=== PATIENT | female | born 1960 | race Caucasian/White ===

== ENCOUNTER → 2017-10-26 06:02 | Outpatient (CLI) | payer BC, SELFPAY ==
--- NOTE | 2017-10-26 09:14 | STRESSREP ---
Stress Test Report Pharmacologic myocardial perfusion stress test. 56-year-old lady with a history of chest pain. Stress protocol: Resting EKG demonstrates sinus rhythm with a rate of 63 bpm normal intervals and noted resting blood pressure is 114/68 mmHg. 0.4 mg of regadenoson was infused per usual protocol followed by rapid intravenous saline flush injection. Continuous EKG monitoring was performed. The maximum heart rate attained was 88 bpm which was 53% maximum predicted heart rate maximum workload attained was 1 metabolic equivalent. At rest there were no ST or T-wave changes noted suggest abnormal flow reserve at peak infusion no ST or T-wave changes were noted suggest abnormal flow reserve. No clinical angina was noted. The resting blood pressure is 114/68 final blood pressure was the same. Myocardial perfusion protocol: 11.1 mCi of technetium 99m sestamibi was injected at rest. 0.4 mg regadenoson was infused per usual protocol peak infusion 32.6 mCi of technetium 99m sestamibi was injected stress images were obtained stress and rest images were reconstructed and compared in the short axis vertical long and horizontal long axis. Gated images were also obtained. Perfusion SPECT analysis: Review of the stress images demonstrate normal uptake of tracer noted in all areas of the myocardium. The resting images similarly demonstrate normal uptake of tracer noted in all areas of myocardium. No areas of reversibility are noted suggest ischemia no previous infarct is noted. Gated SPECT analysis: The gated ejection fraction is over 80%. Conclusion: Normal pharmacologic myocardial perfusion stress test.
== END ==
PROVIDERS: Family Provider Internal Medicine; PCP Internal Medicine; Visit Provider Internal Medicine
DX: R07.9 Chest pain, unspecified (principal)
CPT/HCPCS: 78452; 93017; A9500; A4216; J2785

== ENCOUNTER → 2017-11-01 07:29 | Outpatient (CLI) | payer BC, SELFPAY ==
--- NOTE | 2017-11-01 07:31 | US_ITS ---
STUDY: THYROID ULTRASOUND REASON FOR EXAM: Female, 56 years old. Multinodular goiter. TECHNIQUE: Ultrasound evaluation of the thyroid was performed with real-time and static gonzales-scale imaging. COMPARISON: October 26, 2016. FINDINGS: RIGHT LOBE: The right lobe of the thyroid gland measures 4.1 x 1.7 x 1.3 cm. There is a heterogeneous echotexture. 0.7 x 0.5 x 0.2 cm isoechoic nodule with hypoechoic rim in the medial mid thyroid. LEFT LOBE: The left lobe of the thyroid gland measures 4.2 x 1.6 x 0.9 cm. There is a homogeneous echotexture. There is a 0.4 x 0.4 x 0.2 cm hypodensity in the lower pole. ISTHMUS: The isthmus measures 0.3 cm. The regional lymph nodes are normal. US/Thyroid IMPRESSION: No interval change. Electronically Signed: Rajeev Farias DO at 16:25 EDT Tel [phone], Service support ,
--- NOTE | 2017-11-01 07:31 | HPBI_ITS ---
MAMMOGRAPHY - BILATERAL SCREENING 3-D MEÑO SYNTHESIS REASON FOR EXAM: Female, 56 years old. Bilateral Screening 3-D tomosynthesis PERTINENT HISTORY: No significant family history. TECHNIQUE: 2-D mammograms and 3-D Meño synthesis of the breast (s) were performed. CAD was performed. COMPARISON: 10/29/2016 FINDINGS: The breast composition is composed of scattered fibroglandular density. Scattered benign mostly vascular calcifications are seen. No new finding of dense spiculated masses, abnormal microcalcification cluster, dominant mass or architectural distortion is identified. There is no adenopathy, skin thickening or nipple retraction. There has been no significant change since the prior study. No change tiny metal biopsy clip right breast posteriorly noted with adjacent coarse benign appearing dystrophic calcifications. HPBI/SCREENING MAMM (CAD), BILAT IMPRESSION: No mammographic signs of malignancy. Routine yearly mammograms recommended. ASSESSMENT CATEGORY: BIRADS Category 2: Benign. A letter regarding these results will be sent to the patient by the facility within 30 days. FOLLOW UP RECOMMENDATION: Yearly follow up mammogram recommended. (A) Approximately 10% of breast cancers are not detected by mammography. A normal mammogram should not delay biopsy of a clinically suspicious abnormality. Electronically Signed: Chris Kobe, at 18:39 EDT Tel , Service support ,
== END ==
PROVIDERS: Family Provider Internal Medicine; PCP Internal Medicine; Visit Provider Internal Medicine
DX: E04.2 Nontoxic multinodular goiter (principal); Z12.31 Encounter for screening mammogram for malignant neoplasm of breast
CPT/HCPCS: 76536; 77063; 77067

== ENCOUNTER → 2017-11-19 09:34 | Outpatient (CLI) | payer BC, SELFPAY ==
[2017-11-19 12:08] LABS: Hemoglobin A1c 7.1 % (4.2-6.3)
[2017-11-19 12:35] LABS: AST(SGOT) 23 U/L (15-37); Alanine Aminotransfer ALT/SGPT 26 U/L (13-56); Anion Gap 7 (5-15); BUN 11 mg/dL (7-18); BUN/Creat Ratio 18.6 RATIO (10-20); Calcium,Total 8.5 mg/dL (8.5-10.1); Chloride 107 mmol/L (98-107); Cholesterol 152 mg/dL (200); Creatinine, Serum 0.59 mg/dL (0.55-1.02); EST Glomerular Filtration Rate 111 mL/min (>60); Est Glom Filt Rate - Afr Amer 135 mL/min (>60); Glucose 103 mg/dL (74-106); High Density Lipoprotein 89 mg/dL; Sodium Level 143 mmol/L (136-145); T4 Free Direct 1.58 ng/dL (0.76-1.46); Thyroid Stim Hormone (TSH) 0.73 uIU/mL (0.358-3.74); Triglycerides 26 mg/dL; Very Low Density Lipoprotein 5 mg/dL (5-40)
== END ==
PROVIDERS: Family Provider Internal Medicine; PCP Internal Medicine; Visit Provider Nurse Practitioner Adult Health
DX: E03.8 Other specified hypothyroidism (principal); E53.9 Vitamin B deficiency, unspecified; E55.9 Vitamin D deficiency, unspecified; E10.65 Type 1 diabetes mellitus with hyperglycemia
CPT/HCPCS: 36415; 80048; 80061; 83036; 84439; 84443; 84450; 84460

== ENCOUNTER → 2018-02-17 09:35 | Outpatient (CLI) | payer BC, SELFPAY ==
[2018-02-17 12:47] LABS: AST(SGOT) 22 U/L (15-37); Alanine Aminotransfer ALT/SGPT 33 U/L (13-56); Anion Gap 7 (5-15); BUN 17 mg/dL (7-18); BUN/Creat Ratio 27.2 RATIO (10-20); Calcium,Total 8.7 mg/dL (8.5-10.1); Chloride 104 mmol/L (98-107); Cholesterol 157 mg/dL (200); Creatinine, Serum 0.62 mg/dL (0.55-1.02); EST Glomerular Filtration Rate 104 mL/min (>60); Est Glom Filt Rate - Afr Amer 126 mL/min (>60); Glucose 49 mg/dL (74-106); High Density Lipoprotein 86 mg/dL; Sodium Level 143 mmol/L (136-145); T4 Free Direct 1.25 ng/dL (0.76-1.46); Thyroid Stim Hormone (TSH) 2.08 uIU/mL (0.358-3.74); Triglycerides 37 mg/dL; Very Low Density Lipoprotein 7 mg/dL (5-40)
[2018-02-17 12:48] LABS: Hemoglobin A1c 6.8 % (4.2-6.3)
[2018-02-17 12:51] LABS: Vitamin B12 1996 pg/mL (211-911)
== END ==
PROVIDERS: Family Provider Internal Medicine; PCP Internal Medicine; Visit Provider Nurse Practitioner Adult Health
DX: E03.8 Other specified hypothyroidism (principal); E53.9 Vitamin B deficiency, unspecified; E55.9 Vitamin D deficiency, unspecified; E10.65 Type 1 diabetes mellitus with hyperglycemia
CPT/HCPCS: 36415; 80048; 80061; 82306; 82607; 83036; 84439; 84443; 84450; 84460

== ENCOUNTER → 2018-05-26 10:08 | Outpatient (CLI) | payer BC, SELFPAY ==
[2018-05-26 12:40] LABS: Hemoglobin A1c 6.6 % (4.2-6.3); Vitamin B12 1757 pg/mL (211-911); Vitamin D,25 Hydroxy 63.2 ng/mL (29.95-100.01)
[2018-05-26 12:44] LABS: AST(SGOT) 20 U/L (15-37); Alanine Aminotransfer ALT/SGPT 26 U/L (13-56); Anion Gap 7 (5-15); BUN 15 mg/dL (7-18); Calcium,Total 8.9 mg/dL (8.5-10.1); Chloride 101 mmol/L (98-107); Cholesterol 181 mg/dL (200); Creatinine, Serum 0.71 mg/dL (0.55-1.02); EST Glomerular Filtration Rate 89 mL/min (>60); Est Glom Filt Rate - Afr Amer 108 mL/min (>60); Glucose 118 mg/dL (74-106); High Density Lipoprotein 82 mg/dL; Potassium 4.4 mmol/L (3.5-5.1); Sodium Level 139 mmol/L (136-145); Thyroid Stim Hormone (TSH) 1.94 uIU/mL (0.358-3.74); Triglycerides 37 mg/dL; Very Low Density Lipoprotein 7 mg/dL (5-40)
== END ==
PROVIDERS: Family Provider Internal Medicine; PCP Internal Medicine; Referring Provider Nurse Practitioner Adult Health; Visit Provider Nurse Practitioner Adult Health
DX: E03.8 Other specified hypothyroidism (principal); E53.9 Vitamin B deficiency, unspecified; E55.9 Vitamin D deficiency, unspecified; E10.65 Type 1 diabetes mellitus with hyperglycemia
CPT/HCPCS: 36415; 80048; 80061; 82306; 82607; 83036; 84439; 84443; 84450; 84460

== ENCOUNTER → 2018-06-21 14:13 | Outpatient (CLI) | payer BC, SELFPAY ==
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
--- NOTE | 2018-06-21 14:18 | RAD_ITS ---
STUDY: X-RAY - CERVICAL SPINE REASON FOR EXAM: Female, 57 years old. Neck pain TECHNIQUE: 5 view(s) of the cervical spine were obtained. COMPARISON: None FINDINGS: Odontoid and lateral masses intact and aligned. Cervical vertebral body height and alignment are normal. Slight reversal of expected cervical lordosis. Moderately severe disc narrowing with endplate degenerative changes and uncovertebral joint hypertrophy at C5-C6 and C6-C7. Next line no significant disc degeneration of the remaining levels. In the oblique views, there is mild bony foraminal stenosis due to uncovertebral hypertrophy at C5-C7. There is mild multilevel facet arthropathy. Apical lungs clear, apical thoracic cage intact. Prevertebral soft tissues and airways normal. Craniofacial osseous structures within the field of view appear normal. RAD/Cerv Spine 4 or 5 Views IMPRESSION: Cervical degenerative disc disease is prominent at C5-C6 and C6-C7 with evidence of at least mild foraminal narrowing. Electronically Signed: Silvano Decker, at 17:49 EST Tel , Service support ,
== END ==
PROVIDERS: Family Provider Internal Medicine; PCP Internal Medicine; Referring Provider Internal Medicine; Visit Provider Internal Medicine
DX: R07.81 Pleurodynia (principal); M54.2 Cervicalgia
CPT/HCPCS: 71100; 71101; 72050

== ENCOUNTER 2018-08-16 09:00 | Outpatient (RCR) | payer BC, SELFPAY ==
--- NOTE | 2018-07-10 10:51 | HP.PTEVAL ---
Patient's Visit Information VIOLETA HENNING is a 57 year old F referred to Physical Therapy by Karin Segura DO with a diagnosis of Cervical Radiculopathy. Date of Evaluation: 07/10/18 Physical Therapist: Kiki Thomas - Visit Plan Frequency: 3x /Week Duration: 4 Weeks Plan: Focus on gently scap s/s- postural correction- ultrasound and gently manual - Subjective Findings: Patient reports that she has RA which causes a lot of discomfort. Has been complaining for a long time to her RA MD that her pain is increasing. Saw PCP and reported pain at the base of the skull radiating to the shoulder right>left. Had x-rays which showed a lot of OA and problems with the discs in her neck. Tried to have massage at [facility] which made it feel better but then had another 1 and felt horrible by another massage therapist then back to [facility] then it was okay again. Swathi who is a COMBINATION MACHINE TENDER told her to hold off on the massage until she figured out whats going on. Right now its moderate pain without any rhyme or reason. Last massage was 2 weeks ago around [facility]. It is very restrictive and giving her RAMON. If she is laying in bed and rolls onto her side she wakes up with numbness on the side of the shoulder she is laying on- once she rolls back to her back the numbness goes away with in a min or 2. Does have some right sided finger numbness but it comes and goes. Worst: 8/10 constant pain unable to determine what makes it worse or better. Eases: holding her shoulders back or rubbing the area. Describes the pain as throbbing but its a constant ache as well. RAMON- they fluctuate in the back and then into the front- does not typically get a RAMON. Retired- does not have a lot of activities throughout the day- walks a little bit in the house- reads a lot and is in a bible study and listens to things a lot on the ipad. Normally sits on the couch. Sleeps in a sleep number bed- disturbed- lays on her back. Right hand dominate. PMhx: RA, glaucoma, OA, type 1 DM, osteoporosis, osteonecrosis of the jaw- oral fascial surgeon- 10 months of antibiotics, neuropathy Meds: Troceba, Novalog, synthroid, losartin, prolosec, metanex, neuron, tinniasban, simvastatin, orencia, lumagin, timerol, symbrenza. - Objective Posture: FH, RS- very guarded. Gait: slightly antalgic- decreased stance on the right LE- poor trunk rotation and no arm swing. Palpation: tender along suboccipitals into the upper trap down the cervical paraspinals to the tip of the acromion, bicipital groove and the biceps/triceps to the elbow. Pain along the medial border of the scapula and the supraspinatus and infraspinatus. ROM: Cervical: flexion- decreased by 50%, Extn: decreased by 50% SB: decreased by 25% Rot: decreased by 50% all with significant pain. Shoulder: Flexion: 100 degrees, Abd: 90 degrees, IR: bra line, ER: 30 degrees all with significant pain. Elbow: WNL, Wrist: WNL. Strength: Scap: poor, Cervical: 3+/5 isometrically, Shoulder: 3+/5 with pain in available range, elbow 4/5, Wrist: 4/5, Snack Steward: diminshed but equal the other side. Reflex: WNL. Sensation: WNL. Special Test: Distraction: decreases s/s, Compression: increseases s/s - Goals Goal 1:: Patient will be I with HEP and progression Goal Time Frame: 4-6 Weeks Goal 2:: Patient will demo increased ROM of the shoulder in all deficit areas by 20 degrees Goal Time Frame: 4-6 Weeks Goal 3:: Patient will maintain proper posture t/o tx session to demo increased scap s/s. Goal Time Frame: 4-6 Weeks Goal 4:: Patient will report no RAMON for 1 week Goal Time Frame: 4-6 Weeks - Rehabilitation Potential Physical Therapy Diagnosis: Patient presents with hypmobility- she has decreased ROM, strength and muscular endurance leading to poor posture and increased pain with ADL's. Rehabilitation Potential: Fair - Anticipated Interventions Patient/Client Instruction: Educate patient on: Benefits of Fitness Program Therapeutic Exercise to Include: Strength training, Endurance training, Body mechanics, Postural training, Passive ROM, Active ROM, Scapular Strength/Stabilization For the Purpose of:: To improve muscle performance and motor function Manual Therapy Techniques to Include: Soft tissue mobilization For the Purpose of:: To improve muscle performance and motor function TENS: Yes Cryotherapy (ice pack, ice massage): Yes Thermo therapy (hot pack): Yes Ultrasound (thermal/non thermal): Yes Thank you for the opportunity to evaluate your patient. For Medicare and Medicare HMO plans, please review the plan of care and approve it. It will need to be FAXED BACK to us at [phone] for Medicare purposes. For Medicare only, by signing this I certify the plan of care. Please let me know if there are questions or concerns regarding this plan of care. Physician Signature: Date:
--- NOTE | 2018-07-28 10:58 | HP.PTREVAL_ITS ---
Karin Segura, , It has been my pleasure to treat VIOLETA HENNING over the last 8 visits for Cervical Radiculopathy. Please see the progress note below for an update on the physical therapy plan of care! Subjective: Patient reports that she has improved pain since coming to therapy. Sometimes the pain is moderate and other times its mild. She has noticed that her headaches have greatly improved- thats the most significant improvement. No RAMON in the last week. Feels more functional and able to do a little bit more. Objective/Function: Posture: FH, RS- guarded but more movement today. Gait: slightly antalgic- decreased trunk rotation and limited arm swing. Palpation: tender along suboccipitals into the upper trap down the cervical paraspinals to the tip of the acromion, bicipital groove and the biceps/triceps to the elbow. Pain along the medial border of the scapula and the supraspinatus and infraspinatus. ROM: Cervical: flexion- decreased by 25%, Extn: decreased by 25% SB: decreased by 25% Rot: decreased by 25% all with moderate pain. Shoulder: Flexion: 120 degrees, Abd: 110 degrees, IR: bra line, ER: 30 degrees all with significant pain. Elbow: WNL, Wrist: WNL. Strength: Scap: poor, Cervical: 3+/5 isometrically, Shoulder: 4-/5 with pain in available range, elbow 4+/5, Wrist: 4+/5, Employee Communications Intern: diminshed but equal the other side. Reflex: WNL. Sensation: WNL. Special Test: Distraction: decreases s/s, Compression: increseases s/s Plan Plan: Continue 2x a week for 4 weeks with possible home TENS unit Goals Goal 1:: Patient will be I with HEP and progression Goal Time Frame: 4-6 Weeks Goal Progress: Progressing Goal 2:: Patient will demo increased ROM of the shoulder in all deficit areas by 20 degrees Goal Time Frame: 4-6 Weeks Goal Progress: Progressing Goal 3:: Patient will maintain proper posture t/o tx session to demo increased scap s/s. Goal Time Frame: 4-6 Weeks Goal Progress: Progressing Goal 4:: Patient will report no RAMON for 1 week Goal Time Frame: 4-6 Weeks Goal Progress: Goal Met Anticipated Interventions Patient/Client Instruction: Educate patient on: Benefits of Fitness Program Therapeutic Exercise to Include: Strength training, Endurance training, Body mechanics, Postural training, Passive ROM, Active ROM, Scapular Strength/Stabilization For the Purpose of:: To improve muscle performance and motor function Manual Therapy Techniques to Include: Soft tissue mobilization For the Purpose of:: To improve muscle performance and motor function TENS: Yes Cryotherapy (ice pack, ice massage): Yes Thermo therapy (hot pack): Yes Ultrasound (thermal/non thermal): Yes Please do not hesitate to contact me at [phone] by phone or if you have questions or concerns regarding this new plan of care! Sincerely, WILLIE CoombsT
--- NOTE | 2018-08-16 09:29 | HP.PTDCSUM ---
HP - PT D/C Summary It has been my pleasure to treat VIOLETA HENNING under orders from Karin Segura DO, for the diagnosis of Cervical Radiculopathy for a total of 12 visit(s). Discharge Date: Please see the following information for a summary of their discharge status. - Subjective Subjective: Stoney reports that she has improved- she has had an occasional RAMON but for the most part it has improve greatly. Pain levels have improved dramatically. She still notices things here and there but she is really happy. TENS unit at home is going well- she is using it about 2x a day and plans to travel with it. - Pain RAMON Pain Intensity (Out of 10): 0 UT Pain Intensity (Out of 10): 3 c-spine Pain Intensity (Out of 10): 3 - Overall Improvement % Improvement: 50 - Objective Objective/Function: Posture: good in chair with a back-mild guarding. Gait: no deviation- more fluid and less guarding. Palpation: tender along suboccipitals into the upper trap down the cervical paraspinals to the tip of the acromion, bicipital groove and the biceps/triceps to the elbow can tolerate more pressure with palpation. Pain along the medial border of the scapula and the supraspinatus and infraspinatus. ROM: WFL in all planes- does turn slowly. Shoulder: WNL in all planes- stiff at end range flexion and slow to perform ROM. Strength: Scap: fair plus, Cervical: 3+/5 isometrically, Shoulder: 4/5 no pain in available range, elbow 4+/5, Wrist: 4+/5, Rotogravure Press Operator: diminshed but equal the other side. Reflex: WNL. Sensation: WNL. Special Test: Distraction: decreases s/s, Compression: increseases s/s - Goals Goal 1:: Patient will be I with HEP and progression Goal Progress: Goal Met Goal 2:: Patient will demo increased ROM of the shoulder in all deficit areas by 20 degrees Goal Progress: Goal Met Goal 3:: Patient will maintain proper posture t/o tx session to demo increased scap s/s. Goal Progress: Goal Met Goal 4:: Patient will report no RAMON for 1 week Goal Progress: Progressing - Plan Plan: Discharge to home TENS unit - D/C Information If there are questions or concerns regarding this patient's physical therapy, please feel free to call me at [phone]. Thank you for the referral of this patient. Sincerely, WILLIE CoombsT
== END 2018-08-16 19:00 | disposition home or self-care (01) ==
LOC: PT 09:00
PROVIDERS: Family Provider Internal Medicine; PCP Internal Medicine; Referring Provider Internal Medicine; Visit Provider Internal Medicine
DX: M54.12 Radiculopathy, cervical region (principal)
CPT/HCPCS: 97014; 97035; 97110; 97140; 97162; 97164; 97530; G0283

== ENCOUNTER → 2018-08-25 12:24 | Outpatient (CLI) | payer BC, SELFPAY ==
--- NOTE | 2018-08-25 12:32 | RAD_ITS ---
STUDY: X-RAY - LUMBAR SPINE REASON FOR EXAM: Female, 57 years old. Back pain TECHNIQUE: 5 view(s) of the lumbar spine were obtained. COMPARISON: 11/29/2014 FINDINGS: There is no evidence of fracture or dislocation in the lumbar spine. The vertebral body heights are well-maintained. There are stable mild degenerative changes. RAD/L/S Spine Min 4 Views IMPRESSION: No fracture or dislocation in the lumbar spine. Stable mild degenerative changes. Electronically Signed: Alonzo Worthington, at 14:37 EST Tel , Service support ,
--- NOTE | 2018-08-25 12:37 | RAD_ITS ---
STUDY: X-RAY - LEFT SHOULDER REASON FOR EXAM: Female, 57 years old. History of rheumatoid arthritis, right shoulder pain TECHNIQUE: 3 view(s) of the shoulder. COMPARISON: None. FINDINGS: Normal glenohumeral articulation. There is hypertrophic osteoarthrosis of the acromioclavicular joint with inferior osseous spur formation. Normal acromion. Normal humeral head and visualized proximal humerus. The soft tissue structures are unremarkable. Normal visualized pulmonary apex. RAD/Shoulder min 2 Views IMPRESSION: 1. No erosive arthropathy. 2. Hypertrophic acromioclavicular joint arthropathy. Electronically Signed: Ronny Marie MD at 14:01 EST , Service support ,
--- NOTE | 2018-08-25 12:40 | RAD_ITS ---
STUDY: X-RAY - BILATERAL HIPS WITHOUT PELVIS REASON FOR EXAM: Female, 57 years old. History of rheumatoid arthritis, diffuse body pain TECHNIQUE: 2 views of the right hip, and 2 views of the left hip were obtained. AP pelvis. COMPARISON: None. FINDINGS: Pelvic ring is intact without evidence of lytic or sclerotic bone lesion. No osseous erosion. Visualized sacrum is normal. The sacroiliac joints and pubic symphysis are normal. Right Hip: Normal right femoral head, neck, intertrochanteric region and visualized proximal femur. Well-defined sclerotic lesion of the right femoral head compatible with a bone island. Normal right acetabulum. Normal right hip joint. Left Hip: Normal left femoral head, neck, intertrochanteric region and visualized proximal femur. Normal left acetabulum. Normal left hip joint. Normal bilateral superior and inferior pubic rami , ischial tuberosities and pubic symphysis. RAD/Hips B/L min 2 views w/ Pelvis IMPRESSION: Normal examination of the bilateral hips and AP pelvis. Electronically Signed: Ronny Marie MD at 14:02 EST , Service support ,
--- NOTE | 2018-08-25 12:41 | RAD_ITS ---
STUDY: X-RAY - RIGHT SHOULDER REASON FOR EXAM: Female, 57 years old. Pain TECHNIQUE: 3 view(s) of the shoulder. COMPARISON: None. FINDINGS: There is no evidence of fracture or dislocation. There are mild degenerative changes in the acromioclavicular joint. There are no radiodense foreign bodies. RAD/Shoulder min 2 Views IMPRESSION: No fracture or dislocation. Mild degenerative changes in the acromioclavicular joint. Electronically Signed: Alonzo Worthington, at 15:44 EST Tel , Service support ,
--- OUTSIDE RECORDS SUMMARY | 2018-10-30 02:06 | XMS RPT_ITS | Continuity of Care Document ---
:1960 Author Organization [facility] Address [address] [place] [address] Phone Care Team Providers Name Role Phone Karin Khanna DO Unavailable Bernardo CM, Dr. Deysi Mccarty Unavailable Aguilar Bullock Unavailable Lars Wayne MD Unavailable Billy Nelson MD Unavailable Leola Madsen Unavailable Unavailable María Vasquez Unavailable Unavailable Leigh Ann Herrera LPN Unavailable Unavailable Unavailable Unavailable Problems Name Dates Details Abortions/Miscarriages Comments: 1 Status: Active Acquired hypothyroidism (E03.9, 244.9) Comments: chronic stable-continue present regimen Status: Active Anxiety (F41.9, 300.00) Status: Active Anxiety and depression (F41.9, 300.00) Status: Active Arthritis, rheumatoid (M06.9, 714.0) Status: Active Bilateral hip pain (M25.551, 719.45) Status: Active Bilateral shoulder pain (M25.511, 719.41) Status: Active BMI 22.0-22.9, adult (Z68.22, V85.1) Status: Active Body mass index (BMI) 23.0-23.9, adult (Z68.23, V85.1) Status: Active Conjunctivitis (H10.9, 372.30) Status: Active Cough (R05, 786.2) Comments: needs atypicla coverage and better staph and strept ? bronchitis now early [pneumonia on amoxicillin will add zapk if not better CXR and follow up tuesday Status: Active Deliveries (Parity) Comments: 2 Status: Active Diabetes mellitus type 1, controlled (E10.9, 250.01) Comments: sees [facility]ocrinology - Dr [place] Status: Active Dysphagia, unspecified dysphagia (787.20) Status: Active Encounter for immunization (Z23, V03.89) Status: Active Encounter for screening mammogram for breast cancer (Renamed from Encounter for screening mammogram for malignant neoplasm of breast) (Z12.31, V76.12) Status: Active Encounter for screening mammogram for breast cancer (Renamed from Encounter for screening mammogram for malignant neoplasm of breast) (Z12.31, V76.12) Comments: october Status: Active FAMILY HISTORY OF MALIGNANT NEOPLASM OF GASTROINTESTINAL TRACT (Renamed from Family history of cancer of digestive system) (Z80.0, V16.0) Status: Active Fibroids (218.9) Comments: reassurance Status: Active Gastro-esophageal reflux disease without esophagitis (K21.9, 530.81) Comments: has had egd and upper gi- she was told has esophageal spasm - was told by Dr Flores he could dilate- this was a year ago- she feels better when taking the omeprazole Status: Active Hemangioma of liver (D18.03, 228.04) Comments: reassurance Status: Active Immunocompromised, acquired (D84.9, 279.3) Status: Active Lupus (M32.9, 710.0) Comments: in remission- thought was from Humira had to stop taking Status: Active [facility] Status: Active 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, 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) Comments: she cant take estorgen- has anticoardiolipin ab- and apparently one time was factor 5 leiden positive while on methotrexate but isnt now- so treat mood with cymbalta may help chronic arthritis too Status: Active Mixed hyperlipidemia (E78.2, 272.2) Comments: chronic stable-continue present regimen Status: Active Multinodular goiter (E04.2, 241.1) Comments: stable Status: Active Nausea (R11.0, 787.02) Status: Active Neck pain (M54.2, 723.1) Status: Active Need for prophylactic vaccination and inoculation against influenza (Z23, V04.81) Comments: Lot #[id number] Exp-02/04/19Site-L dltd, IMDose prefilled syringegiven by: Arsenio PULLIAM.VIS reviewed and ABN signed Status: Active Neuropathy (G62.9, 355.9) Status: Active Night sweats (R61, 780.8) Comments: better Status: Active Nipple discharge (N64.52, 611.79) Status: Active Non-smoker (Z78.9, V49.89) Status: Active Open-angle glaucoma of both eyes, indeterminate stage, unspecified open-angle glaucoma type (H40.10X4, 365.10) Comments: 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 sees [facility] clini[facility] every 2months Status: Active 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, 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 Osteopenia (M85.80, 733.90) Comments: she is working thru with rheum to get reclast Status: Active Osteoporosis (M81.0, 733.00) Comments: she is supposed to get reclast thru her endocrine Status: Active Osteoporosis (Renamed from OP (osteoporosis)) (M81.0, 733.00) Comments: cant take meds-due to osteonecrosis Status: Active Otitis Externa (380.10) Comments: stay on antiobitocs and drops Status: Active Pneumococcal vaccination given (Z23, V06.6) Comments: Lot:[id number]:04/26/18Dose:0.5mgRoute:imSite:r armGiven By:CLIFTON signed Status: Active Postmenopausal (Renamed from Postmenopausal status) (Z78.0, V49.81) Status: Active Post-nasal drip (R09.82, 784.91) Status: Active Pregnancies () Comments: 3 Status: Active PVD (peripheral vascular disease) (I73.9, 443.9) Status: Active Rib pain on right side (R07.81, 786.50) Comments: better Status: Active screening Status: Active Sinusitis, acute (J01.90, 461.9) Status: Active Sore throat (J02.9, 462) Status: Active Strep throat exposure (Z20.818, V01.89) Status: Active Unspecified Diagnosis Status: Active Medications Name Dates Details Arava 10 MG Oral Tablet 1 (one) Tablet Tablet qd for 0 days Quantity: 30 {Tablet} Refills: 4 Ordered:08-Apr-2017 Quin Randolph LPN Start : 02-Feb-2017 Active CELEBREX, 200MG (Oral Capsule) 1 Capsule bid, prn for 30 days Quantity: 60 {Capsule} Refills: 0 Ordered:24-Dec-2013 Rohinierikabradford ROJASVanita Start : 24-Dec-2013 Active Ciprofloxacin HCl 0.3 % Ophthalmic Solution 1 (one) Metric Drop 1-2 drops every 2-4 hours while awake for 2 days then 1-2 drops every 4-6 hourswhile awake for 5 days for 0 days Quantity: 1 {Bottle} Refills: 0 Ordered:29-Aug-2018 Zak Khanna DOa AFarpit HARRIS, Karin A Start : 29-Aug-2018 Active FLAX SEED OIL, 1000MG (Oral Capsule) 1 Daily (1000 MG) Active FOLIC ACID, 1MG (Oral Tablet) 1 Tablet Daily for 30 days Quantity: 30 {Tablet} Refills: 0 Ordered:22-Oct-2016 María Vasquez Start : 23-Feb-2012 Active LOSARTAN POTASSIUM, 25MG (Oral Tablet) 1 tab Tablet qd for 30 days Quantity: 30 {Tablet} Refills: 3 Ordered:16-May-2013 Zak Khanna DOa AFarpit DO, Karin A Start : 16-May-2013 Active LOVAZA, 1GM (Oral Capsule) 2 (two) Capsule BID for 30 days Quantity: 120 {Capsule} Refills: 3 Ordered:14-Nov-2012 Tessy Thomas DOhleen Start : 14-Nov-2012 Active Metanx 3-90.314-2-35 MG Oral Capsule 1 (one) Capsule Capsule bid for 0 days Quantity: 60 {Capsule} Refills: 0 Ordered:05-Aug-2017 MARILU Burkett Start : 20-Jun-2017 Active MILK THISTLE XTRA (Oral Capsule) 1 Daily Active NIASPAN, 500MG (Oral Tablet Extended Release) 1 (one) Tablet ER qhs for 30 days Quantity: 30 {Tablet_ER} Refills: 3 Ordered:13-Apr-2013 Karin Khanna DO, DO, Karin A Start : 13-Apr-2013 Active Comments:new dose NOVOLOG FLEXPEN, 100UNIT/ML (Subcutaneous Solution) 3 (three) Solution 4 units q am, 4-5 at noon and 4-5 q evening for 0 days Quantity: 5 {Solution} Refills: 0 Ordered:16-May-2013 Karin hKanna DO, DO, Karin A Start : 16-May-2013 Active Omeprazole 20 MG Oral Tablet Delayed Release 1 (one) Tablet DR qd in am for 30 days Quantity: 30 {Capsule} Refills: 4 Ordered:14-Feb-2018 Karin Khanna DO, DO, Karin A Start : 14-Feb-2018 Active ORENCIA, 125MG/ML (Subcutaneous Solution) 1 Solution uad for 0 days Quantity: 1 {Solution} Refills: 0 Ordered:12-Jan-2013 Roseanne Liu MD Start : 12-Jan-2013 Active Comments:Rhemotologist SIMVASTATIN, 5MG (Oral Tablet) 1 Tablet qhs for 0 days Quantity: 30 {Tablet} Refills: 4 Ordered:14-Dec-2012 Leola Madsen Start : 14-Dec-2012 Active Synthroid 100 MCG Oral Tablet 1 (one) Tablet qd for 0 days Quantity: 30 {Tablet} Refills: 11 Ordered:14-Feb-2018 Karin Khanna DO, DO, Karin A Start : 14-Feb-2018 Active Comments:Dispense as writtenNo Generics Tresiba FlexTouch 100 UNIT/ML Subcutaneous Solution Pen-injector 16 units q am (100 UNIT/ML) Active VITAMIN C, 1000MG (Oral Tablet) 2 BID (1000 MG) Active VITAMIN E, 400UNIT (Oral Capsule) 1 cap daily (400 UNIT) Active Xanax 0.5 MG Oral Tablet 1 Tablet qhs prn for 0 days Quantity: 30 {Tablet} Refills: 0 Ordered:14-Feb-2018 Karin Khanna DO, DO, Karin A Start : 14-Feb-2018 Active Comments:thirty Amoxicillin 875 MG Oral Tablet 1 (one) Tablet bid for 0 days Quantity: 14 {Tablet} Refills: 0 Ordered:25-Aug-2018 Leola Madsen Start : 21-Jun-2018 End : 25-Aug-2018 Inactive Augmentin 875-125 MG Oral Tablet 1 (one) Tablet Tablet bid for 10 days Quantity: 20 {Tablet} Refills: 0 Ordered:15-Nov-2016 Quin Long Start : 15-Nov-2016 End : 25-Nov-2016 Inactive Comments:with food BIAXIN XL PAC, 500MG (Oral Tablet Extended Release 24 Hour) 2 (two) Tablet ER 24HR daily for 10 days Quantity: 20 {Tablet} Refills: 0 Ordered:07-Aug-2014 Vanita Gray CNP Start : 07-Aug-2014 End : 17-Aug-2014 Inactive CIPRO, 500MG (Oral Tablet) 1 Tablet BID for 10 days Quantity: 20 {Tablet} Refills: 0 Ordered:07-Jul-2012 Fast DO, Karin AFast DO, Karin A Start : 26-Jun-2012 End : 06-Jul-2012 Inactive CYCLOBENZAPRINE HCL, 5MG (Oral Tablet) 1 (one) Tablet Tablet bid prn for 0 days Quantity: 30 {Tablet} Refills: 0 Ordered:16-Sep-2014 Leola Madsen Start : 24-Dec-2013 End : 16-Sep-2014 Inactive Cymbalta 30 MG Oral Capsule Delayed Release Particles [address] Part qd for 0 days Quantity: 30 {Capsule} Refills: 3 Ordered:26-Apr-2016 Quin Randolph LPN Start : 16-Sep-2014 End : 26-Apr-2016 Inactive Dymista 137-50 MCG/ACT Nasal Suspension 1 (one) Suspension Suspension spray bid for 0 days Quantity: 1 {Inhaler} Refills: 0 Ordered:26-Apr-2016 Quin Randolph LPN Start : 23-Jun-2015 End : 26-Apr-2016 Inactive EVENING PRIMROSE OIL, 500MG (Oral Capsule) 1 cap daily (500 MG) Inactive Levaquin 500 MG Oral Tablet 1 (one) Tablet qd for 0 days Quantity: 10 {Tablet} Refills: 0 Ordered:14-Oct-2017 Leola Madsen Start : 05-Aug-2017 End : 14-Oct-2017 Inactive LEVSIN/SL, 0.125MG (Sublingual Tablet Sublingual) 1 (one) Tab Sublingual tid, prn for 0 days Quantity: 90 {Tab_Sublingual} Refills: 1 Ordered:12-Jan-2013 TenaJessaa Start : 09-Aug-2012 End : 12-Jan-2013 Inactive Nasonex 50 MCG/ACT Nasal Suspension 2 (two) Puff Puff daily for 0 days Quantity: 1 {Bottle} Refills: 0 Ordered:26-Apr-2016 Quin Randolph LPN Start : 07-Aug-2014 End : 26-Apr-2016 Inactive Promethazine HCl 25 MG Oral Tablet 1 (one) Tablet Tablet q8hrs prn for 0 days Quantity: 15 {Tablet} Refills: 0 Ordered:25-Aug-2018 Fast DOZaka AFarpit DO, Karin A Start : 28-Mar-2018 End : 25-Aug-2018 Inactive TraZODone HCl 50 MG Oral Tablet 1 (one) Tablet qhs prn for 0 days Quantity: 30 {Tablet} Refills: 3 Ordered:14-Feb-2018 Fast DOKarin DO Karin A Start : 11-Nov-2017 End : 14-Feb-2018 Inactive VITAMIN B COMPLEX (Oral Tablet) 1 Daily Inactive ACTONEL, 150MG (Oral Tablet) 1 Tablet monthly for 30 days Quantity: 1 {Tablet} Refills: 0 Ordered:23-Oct-2012 Colton Karin HARRIS DO Karin A Start : 23-Oct-2012 End : 23-Oct-2012 Discontinued Albuterol Sulfate (2.5 MG/3ML) 0.083% Inhalation Nebulization Solution 1 (one) Nebulized Soln Nebulized Soln q 6hr while awake for 0 days Quantity: 1 {Box} Refills: 0 Ordered:15-Nov-2016 Leigh Ann Herrera LPN Start : 13-Sep-2016 End : 15-Nov-2016 Discontinued Gabapentin 100 MG Oral Capsule 1 (one) Capsule uad for 30 days Refills: 1 Ordered:28-Jul-2018 Luis Fernando Javier Start : 03-Jul-2018 End : 28-Jul-2018 Discontinued Comments:1 pill tid x 3 days2 pills tid x 3 daysthen 3 pills tid qd LEVEMIR FLEXPEN, 100UNIT/ML (Subcutaneous Solution Pen-injector) 1 Solution 12units q am, 5 units q pm for 30 days Quantity: 1 {QS} Refills: 2 Ordered:29-Apr-2014 Fast DOKarin DO, Debra A Start : 29-Apr-2014 End : 05-Aug-2017 Discontinued Comments:This order discontinued per [facility]. SYNTHROID, 150MCG (Oral Tablet) uad Tablet qd and 1/2 tab on Sundays for 0 days Quantity: 90 {Tablet} Refills: 0 Ordered:16-May-2013 Fast DO, Karin AFast DO, Karin A Start : 16-May-2013 End : 16-May-2013 Discontinued Dispense as Written SYNTHROID, 150MCG (Oral Tablet) uad Tablet qd and 1/2 tab on Sundays for 0 days Quantity: 30 {Tablet} Refills: 6 Ordered:16-May-2013 Fast DO, Karin AFast DO, Karin A Start : 16-May-2013 End : 16-May-2013 Discontinued Dispense as Written ZESTRIL, 5MG (Oral Tablet) 1 Tablet daily for 30 days Quantity: 30 {Tablet} Refills: 3 Ordered:25-Jul-2012 Fast DO, Karin AFast DO, Karin A Start : 25-Jul-2012 End : 25-Jul-2012 Discontinued Allergies and Adverse Reactions Name Dates Details Septra DS *ANTI-INFECTIVE AGENTS [place] [facility] [place] ([place]) Status: Active Comments: vomiting Past Medical History Name Dates Details Abdominal pain, acute, right upper quadrant (R10.11, 789.01) Status: Resolved as of 23-Oct-2012 Abdominal pain, acute, right upper quadrant (Renamed from Acute abdominal pain in right upper quadrant) (R10.11, 789.01) Status: Resolved as of 05-Aug-2017 Abnormal lung sounds (R09.89, 786.7) Status: Resolved as of 05-Aug-2017 Abnormal Mammogram (Renamed from Abnormal finding on mammography) (R92.8, 793.80) Comments: repeat per patient ok Status: Resolved as of 05-Aug-2017 Abnormal TSH (R79.89, 790.6) Comments: TSH 0.109, T4 2.12 add ultrasoundMonday had pounding heart held dose Status: Resolved as of 05-Aug-2017 Accidental fall, sequela (W19.XXXS, E929.3) Status: Inactive as of 26-Apr-2016 Acute bronchitis, unspecified organism (J20.9, 466.0) Status: Resolved as of 05-Aug-2017 ACUTE CYSTITIS (N30.00, 595.0) Comments: improved Status: Resolved as of 23-Oct-2012 Acute pharyngitis (J02.9, 462) Status: Resolved as of 05-Aug-2017 Back pain (M54.9, 724.5) Status: Inactive as of 14-Feb-2018 Breast pain (N64.4, 611.71) Status: Inactive as of 14-Oct-2017 Cerumen impaction (H61.20, 380.4) Status: Resolved as of 16-May-2013 CHEST PAIN (R07.9, 786.59) Status: Resolved as of 16-May-2013 Chest pain with high risk for cardiac etiology (R07.9, 786.50) Status: Inactive as of 14-Feb-2018 Daytime somnolence (Renamed from Daytime hypersomnolence) (R40.0, 780.54) Status: Resolved as of 16-May-2013 Dermatitis (L30.9, 692.9) Comments: think may be frankenscnsce she added she will get rid of and use steroid creme and let me know if not better Status: Resolved as of 05-Aug-2017 Eustachian Tube Dysfunction (H69.83, 381.81) Status: Resolved as of 05-Aug-2017 Fall (W19.XXXA, E888.9) Status: Resolved as of 16-May-2013 Fatigue (R53.83, 780.79) Status: Inactive as of 14-Oct-2017 Flu-like symptoms (R68.89, 780.99) Status: Resolved as of 05-Aug-2017 Foot injury (959.7) Status: Resolved as of 05-Aug-2017 Left foot pain (M79.672, 729.5) Comments: better Status: Inactive as of 14-Oct-2017 LOW BACK PAIN (Renamed from LBP (low back pain)) (M54.5, 724.2) Status: Resolved as of 14-Oct-2017 [facility] Status: Resolved as of 05-Aug-2017 Myalgia (M79.10, 729.1) Status: Inactive as of 26-Apr-2016 Neoplasm of uncertain behavior of skin (D48.5, 238.2) Status: Inactive as of 14-Feb-2018 Pneumococcal vaccination administered during current admission (Z23, V03.82) Status: Inactive as of 23-Oct-2012 Pneumonia of left lower lobe due to infectious organism (J18.1, 486) Status: Inactive as of 14-Oct-2017 Right upper quadrant pain (R10.11, 789.01) Status: Inactive as of 14-Oct-2017 Rt flank pain (R10.9, 789.00) Comments: ? kidneystones seen on us ? muscular ? shingles without rash. need to rule out other ab path. consider GB but negative murphys and not related to eating. consider thoracic dis herniation. Status: Inactive as of 26-Apr-2016 Upper Respiratory Infection (Renamed from Infection of the upper respiratory tract) (J06.9, 465.9) Status: Resolved as of 05-Aug-2017 Urinary frequency (R35.0, 788.41) Status: Inactive as of 26-Apr-2016 Vaccine for yepokgvoex-emhfbae-ofozkoohk with poliomyelitis (Z23, V06.3) Status: Inactive as of 23-Oct-2012 Vaginal dryness (N89.8, 625.8) Status: Inactive as of 14-Feb-2018 Visit for suture removal (Z48.02, V58.32) Status: Inactive as of 26-Apr-2016 Procedures Procedure Dates Details Breast Biopsy Completed Comments: 1996 Colonoscopy Completed Comments: 05/18 EKG Completed Comments: 08/19 Elbow Surgery Completed Jun-2014 Mammogram Completed Comments: 07/18 Pap Smear Completed Comments: 11/17 Tonsillectomy Completed Comments: 1965 Tubal Ligation Completed Comments: 1996 Date Value Details 25-Aug-2018 Hips B/L min 2 views w/ Pelvis Result: Comments: See Note; NOTES: [facility] Imaging Services [address] [place] [address] Hips B/L min 2 views w/ Pelvis MR#: [id number] Acct: [id number] Name: CHELSEA HENNING Rep #: [id number] : 1960 F 57 From: Ronny Marie MD PCP: Karin Khanna DO Status: REG CLI Study: Hips B/L min 2 views w/ Pelvis Date of Exam: 08/25/18 Exam# [id number] Ordering Dr: Karin Khanna DO STUD Y: X-RAY - BILATERAL HIPS WITHOUT PELVIS REASON FOR EXAM: Female, 57 years old. History of rheumatoid arthritis, diffuse body pain TECHNIQUE: 2 views of the right hip, and 2 views of the left hip were obtained. AP pelvis. COMPARISON: None. FINDINGS: Pelvic ring is intact without evidence of lytic or sclerotic bone lesion. No osseous erosion. Visualized sacrum is normal. The sacroiliac joints and pubic symphysis are normal. Right Hip: Normal right femoral head, neck, intertrochanteric region and visualized proximal femur. Well-defined sclerotic lesion of the right femoral head compatible with a bone island. Normal right acetabulum. Normal right hip joint. Left Hip: Normal left femoral head, neck, intertrochanteric region and visualized proximal femur. Nor mal left acetabulum. Normal left hip joint. Normal bilateral superior and inferior pubic rami , ischial tuberosities and pubic symphysis. RAD/H ips B/L min 2 views w/ Pelvis IMPRESSION: Normal examination of the bilateral hips and AP pelvis. Electronically Signed: Ronny Marie MD at 14:02 EST , Service support [phone], CC: Karin Khanna DO Tube Turner: Signed 25-Aug-2018 Shoulder min 2 Views Result: Comments: See Note; NOTES: [facility] Imaging Services [address] [place] [address] Shoulder min 2 Views MR#: [id number] Acct: [id number] Name: CHELSEA HENNING Rep #: [id number] : 1960 F 57 From: Ronny Marie MD PCP: Karin Khanna DO Status: REG CLI Study: Shoulder min 2 Views Date of Exam: 08/25/18 Exam# [id number] Ordering Dr: Karin Khanna DO STUDY: X-RAY - LEFT SHOU LDER REASON FOR EXAM: Female, 57 years old. History of rheumatoid arthritis, right shoulder pain TECHNIQUE: 3 view(s) of the shoulder. COMPARISON: None. FINDINGS: Normal glenohumeral articulation. There is hypertrophic osteoarthrosis of the acromioclavicular joint with inferior osseous spur formation. Normal acromion. Normal humeral head and visualized proximal humerus. The soft tissue structures are unremarkable. Normal visualized pulmonary apex. RAD/Shoulder min 2 Views IMPRESSION: 1. No erosive art hropathy. 2. Hypertrophic acromioclavicular joint arthropathy. Electronically Signed: Ronny Marie MD at 14:01 EST , Service support , CC: Karin Khanna DO Tube Turner: Signed 25-Aug-2018 Shoulder min 2 Views Result: Comments: See Note; NOTES: [facility] Imaging Services [address] [place] [id number] Shoulder min 2 Views MR#: [id number] Acct: [id number] Name: CHELSEA HENNING Rep #: [id number] : 1960 F 57 From: Alonzo Worthington MD PCP: Karin Khanna DO Status: REG CLI Study: Shoulder min 2 Views Date of Exam: 08/25/18 Exam# [id number] Ordering Dr: Karin Khanna DO STUDY: X-RAY - RIGHT [facility] REASON FOR EXAM: Female, 57 years old. Pain TECHNIQUE: 3 view(s) of the shoulder. COMPARISON: None. FINDINGS: There is no evidence of fracture or dislocatio n. There are mild degenerative changes in the acromioclavicular joint. There are no radiodense foreign bodies. RAD/Shoulder min 2 Views IMPRES ELISHA: No fracture or dislocation. Mild degenerative changes in the acromioclavicular joint. Electronically Signed: Alonzo Worthington, at 15:44 EST Tel , Service support , CC: Karin Khanna DO Tube Turner: Signed 25-Aug-2018 L/S Spine Min 4 Views Result: Comments: See Note; NOTES: [facility] Imaging Services [address] [place] [id number] L/S Spine Min 4 Views MR#: [id number] Acct: [id number] Name: CHELSEA HENNING Rep #: [id number] : 1960 F 57 From: Alonzo Worthington MD PCP: Karin Khanna DO Status: REG CLI Study: L/S Spine Min 4 Views Date of Exam: 08/25/18 Exam# [id number] Ordering Dr: Karin Khanna DO STUDY: X-RAY - LUMBAR SPINE REASON FOR EXAM: Female, 57 years old. Back pain TECHNIQUE: 5 view(s) of the lumbar spine were obtained. COMPARISON: 11/29/2014 FINDINGS: There is no eviden ce of fracture or dislocation in the lumbar spine. The vertebral body heights are well-maintained. There are stable mild degenerative changes. RAD/L/S Spine Min 4 Views IMPRESSION: No fracture or dislocation in the lumbar spine. Stable mild degenerative changes. Electronically Signed: Alonzo Worthington, at 14:37 EST Tel , Service support , CC: Karin Khanna DO Tube Turner: Signed 16-Aug-2018 PT D/C Summary (1) Result: Comments: See Note; NOTES: [facility] [address] [place] [address] / REHABILITATION SERVICES DISCH ARGE SUMMARY MR#: [id number] Acct: [id number] Name: CHELSEA HENNING Rep #: [id number] : 1960 57 From: Kiki Thomas DPT Referring Dr.: Karin Khanna DO Status: REG RCR Insurance: [employer] PAY INSURANCE HP - PT D/C Summary It has been my pleasure to treat CHELSEA HENNING under orders from Karin Khanna DO, for the diagnosis of Cervical Radiculopathy for a total of 12 visit(s). Discharge Date: Please see the following information for a summary of their discharge status. - Subjective Subjective: Stoney reports that she has improved- she has had an occasional MAURO but for the most part it mauro s improve greatly. Pain levels have improved dramatically. She still notices things here and there but she is really happy. TENS unit at home is going well- she is using it about 2x a day and plans to t ravel with it. - Pain MAURO Pain Intensity (Out of 10): 0 UT Pain Intensity (Out of 10): 3 c-spine Pain Intensity (Out of 10): 3 - Overall Improvement % Improvement: 50 - Objective Objective/ Function: Posture: good in chair with a back-mild guarding. Gait: no deviation- more fluid and less guarding. Palpation: tender along suboccipitals into the upper trap down the cervical paraspinals to t he tip of the acromion, bicipital groove and the biceps/triceps to the elbow can tolerate more pressure with palpation. Pain along the medial border of the scapula and the supraspinatus and infraspinatu s. ROM: WFL in all planes- does turn slowly. Shoulder: WNL in all planes- stiff at end range flexion and slow to perform ROM. Strength: Scap: fair plus, Cervical: 3+/5 isometrically, Shoulder: 4/5 no pa in in available range, elbow 4+/5, Wrist: 4+/5, Anatomy And Physiology Instructor: diminshed but equal the other side. Reflex: WNL. Sensation: WNL. Special Test: Distraction: decreases s/s, Compression: increseases s/s - Goals Goa l 1:: Patient will be I with HEP and progression Goal Progress: Goal Met Goal 2:: Patient will demo increased ROM of the shoulder in all deficit areas by 20 degrees Goal Progress: Goal Met Goal 3:: Tootie ent will maintain proper posture t/o tx session to demo increased scap s/s. Goal Progress: Goal Met Goal 4:: Patient will report no MAURO for 1 week Goal Progress: Progressing - Plan Plan: Discharge to [facility] TENS unit - D/C Information If there are questions or concerns regarding this patient's physical therapy, please feel free to call me at [phone]. Thank you for the referral of this patient. Kiki Quezada, DPT <Electronically signed by Kiki Thomas DPT> 08/16/18 0929 CC: Karin Khanna DO ELR Signed 28-Jul-2018 Re-Evaluation - PT (1) Result: Comments: See Note; NOTES: [facility] [address] [place], [place] [id number] Fax REEVALUATION / MEDICARE RECERTI FICATION PHYSICAL THERAPY MR#: [id number] Acct: [id number] Name: CHELSEA HENNING Rep #: [id number] : 1960 57 From: Kiki Thomas DPT Referring DrMarquis: Karin Khanna DO Status: REG RCR Insurance: [employer] S[employer]F PAY INSURANCE Karin Khanna DO, It has been my pleasure to treat CHELSEA HENNING over the last 8 visits for Cervical Radiculopathy. Please see the progress note below for an update on the [facility] therapy plan of care! Subjective: Patient reports that she has improved pain since coming to therapy. Sometimes the pain is moderate and other times its mild. She has noticed that her headaches mauro ve greatly improved- thats the most significant improvement. No MAURO in the last week. Feels more functional and able to do a little bit more. Objective/Function: Posture: FH, RS- guarded but more movemen t today. Gait: slightly antalgic- decreased trunk rotation and limited arm swing. Palpation: tender along suboccipitals into the upper trap down the cervical paraspinals to the tip of the acromion, bici pital groove and the biceps/triceps to the elbow. Pain along the medial border of the scapula and the supraspinatus and infraspinatus. ROM: Cervical: flexion- decreased by 25%, Extn: decreased by 25% SB : decreased by 25% Rot: decreased by 25% all with moderate pain. Shoulder: Flexion: 120 degrees, Abd: 110 degrees, IR: bra line, ER: 30 degrees all with significant pain. Elbow: WNL, Wrist: WNL. Strengt h: Scap: poor, Cervical: 3+/5 isometrically, Shoulder: 4-/5 with pain in available range, elbow 4+/5, Wrist: 4+/5, Anatomy And Physiology Instructor: diminshed but equal the other side. Reflex: WNL. Sensation: WNL. Special Test: Di straction: decreases s/s, Compression: increseases s/s Plan Plan: Continue 2x a week for 4 weeks with possible home TENS unit Goals Goal 1:: Patient will be I with HEP and progression Goal Time Frame: 4-6 Weeks Goal Progress: Progressing Goal 2:: Patient will demo increased ROM of the shoulder in all deficit areas by 20 degrees Goal Time Frame: 4-6 Weeks Goal Progress: Progressing Goal 3:: Patient w ill maintain proper posture t/o tx session to demo increased scap s/s. Goal Time Frame: 4-6 Weeks Goal Progress: Progressing Goal 4:: Patient will report no MAURO for 1 week Goal Time Frame: 4-6 Weeks Goal Progress: Goal Met Anticipated Interventions Patient/Client Instruction: Educate patient on: Benefits of Fitness Program Therapeutic Exercise to Include: Strength training, Endurance training, Body me chanics, Postural training, Passive ROM, Active ROM, Scapular Strength/Stabilization For the Purpose of:: To improve muscle performance and motor function Manual Therapy Techniques to Include: Soft tiss ue mobilization For the Purpose of:: To improve muscle performance and motor function TENS: Yes Cryotherapy (ice pack, ice massage): Yes Thermo therapy (hot pack): Yes Ultrasound (thermal/non thermal): Yes Please do not hesitate to contact me at [phone] by phone or if you have questions or concerns regarding this new plan of care! Sincerely, Kiki Thomas DPT <Elec tronically signed by Kiki Thomas DPT> 07/28/18 1058 CC: Karin Khanna DO ELR Signed For Medicare only, by signing this I certify the plan of care. Physicians Signature Date 10-Jul-2018 Inital Evaluation (1) - PT Result: Comments: See Note; NOTES: [facility] [address] [place] [address]. [address] [place] [address] Fax REHABILITATION SERVICES INITIAL EVALUATION MR#: [id number] Acct: [id number] Name: CHELSEA HENNING Rep #: [id number] : 1960 57 From: Kiki Thomas DPT Referring Dr.: Karin Khanna DO Status: REG RCR Insurance: ANTHEM SELF PAY I NSURANCE Patient's Visit Information CHELSEA HENNING is a 57 year old F referred to Physical Therapy by Karin Khanna DO with a diagnosis of Cervical Radiculopathy. Date of Evaluation: 07/10/18 Physica l Therapist: Kiki Thoams - Visit Plan Frequency: 3x /Week Duration: 4 Weeks Plan: Focus on gently scap s/s- postural correction- ultrasound and gently manual - Subjective Findings: Patient reports that she has RA which causes a lot of discomfort. Has been complaining for a long time to her RA MD that her pain is increasing. Saw PCP and reported pain at the base of the skull radiating to the shoul yobani right>left. Had x-rays which showed a lot of OA and problems with the discs in her neck. Tried to have massage at [facility] which made it feel better but then had another 1 and felt ho rrible by another massage therapist then back to origional then it was okay again. Swathi who is a PLATFORM OPERATIONS DIRECTOR told her to hold off on the massage until she figured out whats going on. Right now its moderate pa in without any rhyme or reason. Last massage was 2 weeks ago around [place]. It is very restrictive and giving her MAURO. If she is laying in bed and rolls onto her side she wakes up with numbness on the side of the shoulder she is laying on- once she rolls back to her back the numbness goes away with in a min or 2. Does have some right sided finger numbness but it comes and goes. Worst: 03/17 consta nt pain unable to determine what makes it worse or better. Eases: holding her shoulders back or rubbing the area. Describes the pain as throbbing but its a constant ache as well. MAURO- they fluctuate in t he back and then into the front- does not typically get a MAURO. Retired- does not have a lot of activities throughout the day- walks a little bit in the house- reads a lot and is in a bible study and list ens to things a lot on the ipad. Normally sits on the couch. Sleeps in a sleep number bed- disturbed- lays on her back. Right hand dominate. PMhx: RA, glaucoma, OA, type 1 DM, osteoporosis, osteonecrosi s of the jaw- oral fascial surgeon- 10 months of antibiotics, neuropathy Meds: Troceba, Novalog, synthroid, losartin, prolosec, metanex, neuron, tinniasban, simvastatin, orencia, lumagin, timerol, symbr alireza. - Objective Posture: FH, RS- very guarded. Gait: slightly antalgic- decreased stance on the right LE- poor trunk rotation and no arm swing. Palpation: tender along suboccipitals into the upper tr ap down the cervical paraspinals to the tip of the acromion, bicipital groove and the biceps/triceps to the elbow. Pain along the medial border of the scapula and the supraspinatus and infraspinatus. RO M: Cervical: flexion- decreased by 50%, Extn: decreased by 50% SB: decreased by 25% Rot: decreased by 50% all with significant pain. Shoulder: Flexion: 100 degrees, Abd: 90 degrees, IR: bra line, ER: 30 degrees all with significant pain. Elbow: WNL, Wrist: WNL. Strength: Scap: poor, Cervical: 3+/5 isometrically, Shoulder: 3+/5 with pain in available range, elbow 4/5, Wrist: 4/5, Anatomy And Physiology Instructor: diminshed but eq ual the other side. Reflex: WNL. Sensation: WNL. Special Test: Distraction: decreases s/s, Compression: increseases s/s - Goals Goal 1:: Patient will be I with HEP and progression Goal Time Frame: 4-6 Weeks Goal 2:: Patient will demo increased ROM of the shoulder in all deficit areas by 20 degrees Goal Time Frame: 4-6 Weeks Goal 3:: Patient will maintain proper posture t/o tx session to demo increase d scap s/s. Goal Time Frame: 4-6 Weeks Goal 4:: Patient will report no MAURO for 1 week Goal Time Frame: 4-6 Weeks - Rehabilitation Potential Physical Therapy Diagnosis: Patient presents with hypmobility- she has decreased ROM, strength and muscular endurance leading to poor posture and increased pain with ADL's. Rehabilitation Potential: Fair - Anticipated Interventions Patient/Client Instruction: Adrian mane patient on: Benefits of Fitness Program Therapeutic Exercise to Include: Strength training, Endurance training, Body mechanics, Postural training, Passive ROM, Active ROM, Scapular Strength/Stabili zation For the Purpose of:: To improve muscle performance and motor function Manual Therapy Techniques to Include: Soft tissue mobilization For the Purpose of:: To improve muscle performance and motor f unction TENS: Yes Cryotherapy (ice pack, ice massage): Yes Thermo therapy (hot pack): Yes Ultrasound (thermal/non thermal): Yes Thank you for the opportunity to evaluate your patient. For Medicare and Medicare HMO plans, please review the plan of care and approve it. It will need to be FAXED BACK to us at [phone] for Medicare purposes. For Medicare only, by signing this I certify the plan of care. Please let me know if there are questions or concerns regarding this plan of care. Physician Signature: Date: <Electronica lly signed by Kiki Thomas DPT> 07/10/18 1051 CC: Karin Khanna DO ELR Signed 21-Jun-2018 Cerv Spine 4 or 5 Views Result: Comments: See Note; NOTES: [facility] Imaging Services [address] [place] [address] Cerv Spine 4 or 5 Views MR#: [id number] Acct: [id number] Name: CHELSEA HENNING Rep #: [id number] : 1960 F 57 From: Silvano Decker MD PCP: Karin Khanna DO Status: REG CLI Study: Cerv Spine 4 or 5 Views Date of Exam: 06/21/18 Exam# [id number] Ordering Dr: Karin Khanna DO STUDY: X-RAY - C ERVICAL SPINE REASON FOR EXAM: Female, 57 years old. Neck pain TECHNIQUE: 5 view(s) of the cervical spine were obtained. COMPARISON: None FINDINGS: Odontoid and l ateral masses intact and aligned. Cervical vertebral body height and alignment are normal. Slight reversal of expected cervical lordosis. Moderately severe disc narrowing with endplate degenerative adamson ges and uncovertebral joint hypertrophy at C5-C6 and C6-C7. Next line no significant disc degeneration of the remaining levels. In the oblique views, there is mild bony foraminal stenosis due to uncover tebral hypertrophy at C5-C7. There is mild multilevel facet arthropathy. Apical lungs clear, apical thoracic cage intact. Prevertebral soft tissues and airways normal. Craniofacial osseous structures wi thin the field of view appear normal. RAD/Cerv Spine 4 or 5 Views IMPRESSION: Cervical degenerative disc disease is prominent at C5-C6 and C6-C7 with evidence of at least mild foraminal narrowing. Electronically Signed: Silvano Decker, at 17:49 EST Tel , Service support , CC: Karin Khanna DO Tube Turner: Signed 21-Jun-2018 Ribs Uni Min 3V w/PA Chest Result: Comments: See Note; NOTES: [facility] Imaging Services [address] [place] [address] Ribs Uni Min 3V w/PA Chest MR#: [id number] Acct: [id number] Name: CHELSEA HENNING Rep #: [id number] : 1960 F 57 From: Silvano Decker MD PCP: Karin Khanna DO Status: REG CLI Study: Ribs Uni Min 3V w/PA Chest Date of Exam: 06/21/18 Exam# [id number] Ordering Dr: Karin Khanna DO STUDY: X-R AY - UNILATERAL RIBS ( RIGHT ) WITH CHEST REASON FOR EXAM: Female, 57 years old. Lead over railing into right ribs 3 weeks ago, pain. TECHNIQUE - RIBS: 3 view(s) of the ribs. TECHNIQUE - CHEST: PA C OMPARISON: 09/13/2016 chest x-ray. FINDINGS - RIBS: Observed only one view, there appears to be a very slight cortical step-off in the distalmost right 8th rib, suspic ious for a nondisplaced acute fracture. Grove image saved to the PACS archive. FINDINGS - CHEST: The lungs are clear and expanded. There is no demonstrated pleural abnormality. Normal size heart. Maryanne l mediastinum and rio. Normal visualized pulmonary arteries. Normal visualized aortic arch and descending thoracic aorta. Normal visualized thoracic spine. Normal visualized ribs, clavicles, and shoul ders. There is no demonstrated abnormality of the visualized soft tissue structures of the upper abdomen. RAD/Ribs Uni Min 3V w/PA Chest IMPRES ELISHA: RIBS: Suspected nondisplaced fracture of the distal right atrium. CHEST: Normal x-ray examination of the chest otherwise. Electronically Signed: Silvano Decker, at 17:51 EST Tel , Service support , CC: Karin Khanna DO Tube Turner: Signed 01-Nov-2017 SCREENING MAMM (CAD), BILAT Result: Comments: See Note; NOTES: [facility] Imaging Services [address] [place] [address] SCREENING MAMM (CAD), BILAT MR#: [id number] Acct: [id number] Name: CHELSEA HENNING Rep #: [id number] : 1960 F 56 From: Chris Bullock MD PCP: Karin Khanna DO Status: REG CLI Study: SCREENING MAMM (CAD), BILAT Date of Exam: 11/01/17 Exam# [id number] Ordering Dr: Karin Khanna DO MAMMOGRAPH Y - BILATERAL SCREENING 3-D DALE SYNTHESIS REASON FOR EXAM: Female, 56 years old. Bilateral Screening 3-D tomosynthesis PERTINENT HISTORY: No significant family history. TECHNIQUE: 2-D mammograms and 3-D Dale synthesis of the breast (s) were performed. CAD was performed. COMPARISON: 10/29/2016 FINDINGS: The breast composition is composed of scattered fibroglandular density. Scattered benign mostl y vascular calcifications are seen. No new finding of dense spiculated masses, abnormal microcalcification cluster, dominant mass or architectural distortion is identified. There is no adenopathy, skin thickening or nipple retraction. There has been no significant change since the prior study. No change tiny metal biopsy clip right breast posteriorly noted with adjacent coarse benign appearing dystro phic calcifications. HPBI/SCREENING MAMM (CAD), BILAT IMPRESSION: No mammographic signs of malignancy. Routine yearly mammograms recommended. ASSESSMENT CATEGORY: BIRADS Category 2 : Benign. A letter regarding these results will be sent to the patient by the facility within 30 days. FOLLOW UP RECOMMENDATION: Yearly follow up mammogram recommended. (A) Approximately 10% of breast cancers are not detected by mammography. A normal mammogram should not delay biopsy of a clinically suspicious abnormality. Electronically Signed: Chris Bullock, at 18:39 EDT Tel , Service support , CC: Karin Khanna DO Tube Turner: Signed 01-Nov-2017 Thyroid Result: Comments: See Note; NOTES: [facility] Imaging Services [address] [place] [address] Thyroid MR#: [id number] Acct: [id number] Name: CHELSEA HENNING Rep #: [id number] : [birth year] F 56 From: Rajeev Farias DO PCP: Karin Khanna DO Status: REG CLI Study: Thyroid Date of Exam: 11/01/17 Exam# [id number] Ordering Dr: Karin Khanna DO STUDY: THYROID ULTRASOUND REASON FOR EXAM: Female, 56 years old. Multinodular goiter. TECHNIQUE: Ultrasound evaluation of the thyroid was performed with real-time and static gonzales-scale imaging. COMPARISON: October 26, 2016. FINDINGS: RIGHT LOBE: The right lobe of the thyroid gland measures 4.1 x 1.7 x 1.3 cm. There is a heterogeneous echotexture. 0.7 x 0.5 x 0.2 cm isoechoic nodule with hypoechoic rim in the media l mid thyroid. LEFT LOBE: The left lobe of the thyroid gland measures 4.2 x 1.6 x 0.9 cm. There is a homogeneous echotexture. There is a 0.4 x 0.4 x 0.2 cm hypodensity in the lower pole. ISTHMUS: The isthmus measures 0.3 cm. The regional lymph nodes are normal. US/Thyroid IMPRESSION: No interval change. Electronically Signed: Aaron Fraire at 16:25 EDT Tel [phone], Service support , CC: Karin Khanna DO Tube Turner: Signed 26-Oct-2017 Stress Report Result: Comments: See Note; NOTES: [facility] Cardiovascular [place] [address] MR#: [id number] Acct: [id number] Name: CHELSEA HENNING Rep #: [id number] : 1960 56 From: Romel Martinez MD Primary Care: Colton HARRISKarin Status: REG CLI Ordering Dr: Sex: F C Stress Test Report Pharmacologic myocardial perfusion stress test. 56-year-old lady with a history o f chest pain. Stress protocol: Resting EKG demonstrates sinus rhythm with a rate of 63 bpm normal intervals and noted resting blood pressure is 114/68 mmHg. 0.4 mg of regadenoson was infused per usual protocol followed by rapid intravenous saline flush injection. Continuous EKG monitoring was performed. The maximum heart rate attained was 88 bpm which was 53% maximum predicted heart rate maximum work load attained was 1 metabolic equivalent. At rest there were no ST or T-wave changes noted suggest abnormal flow reserve at peak infusion no ST or T-wave changes were noted suggest abnormal flow reserve . No clinical angina was noted. The resting blood pressure is 114/68 final blood pressure was the same. Myocardial perfusion protocol: 11.1 mCi of technetium 99m sestamibi was injected at rest. 0.4 mg regadenoson was infused per usual protocol peak infusion 32.6 mCi of technetium 99m sestamibi was injected stress images were obtained stress and rest images were reconstructed and compared in the short axis vertical long and horizontal long axis. Gated images were also obtained. Perfusion SPECT analysis: Review of the stress images demonstrate normal uptake of tracer noted in all areas of the myocar dium. The resting images similarly demonstrate normal uptake of tracer noted in all areas of myocardium. No areas of reversibility are noted suggest ischemia no previous infarct is noted. Gated SPECT a nalysis: The gated ejection fraction is over 80%. Conclusion: Normal pharmacologic myocardial perfusion stress test. 10/26/17 0920 <Electronically signed by Romel Martinez MD> Date Romel Martinez MD CC: Karin Khanna DO Date Dictated: 10/26/17913 Date Transcribed: 10/26/17913 Tube Turner: CO Signed 08-Apr-2017 Foot min 3 Views Result: Comments: See Note; NOTES: [facility] Imaging Services [address] [place] [address] Foot min 3 Views MR#: [id number] Acct: [id number] Name: CHELSEA HENNING Rep #: [id number] : 1960 F 56 From: Rajiv Shanks MD PCP: Karin Khanna DO Status: REG CLI Study: Foot min 3 Views Date of Exam: 04/08/17 Exam# [id number] Ordering Dr: Karin Khanna DO STUDY: X-RAY - LEFT FOOT CLINIC AL: Female, 56 years old. Possible stress fx, no known injury, hx RA, OA, previous fx 5th mc TECHNIQUE: 3 view(s) of the foot. COMPARISON: None. FINDINGS: There is a plantar calcaneal spur. Normal visualized subtalar, talonavicular, calcaneocuboid, tarsal and tarsometatarsal articulations. Healed fracture of the fifth metatarsal bone. Normal metatarsophalangea l joint of the great toe. Normal tibial and fibular sesamoid bones. Normal interphalangeal joint of the great toe. Normal phalanges of the great toe. Normal second through fifth metatarsophalangeal sunitha nts. Normal interphalangeal joints and phalanges of the lesser toes. The soft tissue structures are unremarkable. RAD/Foot min 3 Views IMPRESSIO N: Healed fracture of the fifth metatarsal bone. There are no acute findings. Electronically Signed: Rajiv Shanks MD at 17:07 EDT , Service support , Fax CC: Karin Khanna DO Tube Turner: Signed 02-Mar-2017 Thoracic Spine 3 Views Result: Comments: See Note; NOTES: [facility] Imaging Services [address] [place] [address] Verdana 4d Thoracic Spine 3 Views MR#: [id number] Acct: [id number] Name: CHELSEA HENNING Rep #: [id number] : 1960 F 56 From: Yoan Gray MD PCP: Karin Khanna DO Status: REG CLI Study: Thoracic Spine 3 Views Date of Exam: 03/02/17 Exam# [id number] Ordering Dr: Karin Khanna DO STUDY : X-RAY - THORACIC SPINE REASON FOR EXAM: Female, 56 years old. Pain without injury TECHNIQUE: 3 view(s) of the thoracic spine were obtained. COMPARISON: None. FI NDINGS: Mild diffuse spondylosis. Anterior alignment is normal. No compression deformities. Pedicles are seen at all levels. Mild listing to the right. Soft tissues are normal. RAD/Thoracic Spine 3 Views IMPRESSION: Mild diffuse spondylosis with normal anterior alignment. Electronically Signed: Yoan Gray, at 6:36 EDT Tel , Service support , CC: Karin Khanna DO Tube Turner: Signed 23-Feb-2017 NCS and/or EMG Patient Result: Comments: See Note; NOTES: [facility] Pulmonary Services/Neurology [address] [place] [address] MR#: [id number] Acct: [id number] Name: CHELSEA HENNING Rep #: [id number] : 04/1961 56 From: Radha Hoover MD Referring Dr: Dione Guerra PLATFORM OPERATIONS DIRECTOR-C Status: REG CLI Ordering Dr: Date: Location: PSN Sex: F C NCS and/or EMG Patient NCS and/or EMG Patient: Date of Service: February 23, 2017 Chelsea Henning is a 56-year-old female who presents for electrodiagnostic evaluation of the lower limbs. She has intermittent numbness and tingling in the legs as well as stabbing pain in the right calf. Electrodiagnostic findings: On nerve conduction study, the right common peroneal motor nerve demonstrates prolonged distal latency with normal amplitude and conduction velocity> Normal l eft common peroneal motor response. Tibial motor response is normal bilaterally. Peroneal and tibial F waves are normal. Prolonged H reflex noted bilaterally Superficial peroneal and sural responses ar e within normal limits plantar responses are normal Electrodiagnostic impression: This is a an abnormal study of the lower limbs 1. Findings demonstrate a right common peroneal mononeuropathy with rick roximately 50% amplitude decrease compared to the left side. This may be responsible for some of the stabbing sensations in her right lower leg. 2. There is no electrodiagnostic evidence for peripheral polyneuropathy. 3. No electrodiagnostic evidence is noted for lumbosacral radiculopathy. If there are any questions in regards to this exam please not hesitate to contact me 02/23/17 1528 <Estrella ctronically signed by Radha Hoover MD> Date Radha Hoover MD CC: Radha Hoover; Karin Khanna DO Date Dictated: 02/23/1734 Date Transcribed: 02/23/17 0834 Tube Turner: CORBIN Signed 03-Feb-2017 Abdomen Limited Result: Comments: See Note; NOTES: [facility] Imaging Services [address] [place] [address] Verdana 4d Abdomen Limited MR#: [id number] Acct: [id number] Name: CHELSEA HENNING Rep #: [id number] : 1960 F 56 From: Salvador Pike MD PCP: Karin Khanna DO Status: REG CLI Study: Abdomen Limited Date of Exam: 02/03/17 Exam# [id number] Ordering Dr: Karin Khanna DO STUDY: ABDOMINAL U LTRASOUND - RIGHT UPPER QUADRANT REASON FOR VISIT: Female, 56 years old. Right upper quadrant pain. TECHNIQUE: Ultrasound evaluation of the right upper quadrant was performed with real-time and static gonzales-scale imaging. TECHNICAL QUALITY: Adequate. COMPARISON: None. FINDINGS: Liver: The liver measures 14.3 cm. There is normal echogenicity of the liver. The bi le ducts are within normal limits. There is hepatic color flow. The direction of portal flow is hepatopetal. There is a 1.4 cm x 1.7 cm x 1.9 cm echogenic nodule in the posterior superior aspect of the right lobe of the liver. This may represent a small hemangioma. Gallbladder: Normal distended gallbladder. The gallbladder wall measures 3.0 mm. There is a negative sonographic Martins's sign. There is no pericholecystic fluid. There are no gallstones. Common Bile Duct (C.B.D.): The common bile duct measures 2.0 mm. Pancreas: Normal size of the head, body and tail of the pancreas. There is normal ec hogenicity of the pancreas. There is no demonstrated pancreatic mass or cyst. Right Kidney: Normal size of the right kidney. The right kidney measures 11.6 cm x 5.1 cm x 3.6 cm. Normal renal cortex. Th e right cortex measures 1.1 cm. There is no demonstrated renal mass or cyst. There is no right hydronephrosis. US/Abdomen Limited IMPRESSION: 1.4 cm x 1.7 cm x 1.9 cm echogenic nodule in the dome of the right lobe of liver as described most likely representing a small hemangioma. Electronically Signed: Salvador Pike MD at 14:21 EDT Tel [phone], Service support , CC: Karin Khanna DO Tube Turner: Signed 10-Nov-2016 Breast w/o and/or W Cont Bilat Result: Comments: See Note; NOTES: [facility] Imaging Services [address] [place] [address] Verdana 4d Breast w/o and/or W Cont Bilat MR#: [id number] Acct: [id number] Name: CATHERINE HENNING Rep #: [id number] : 1960 F 55 From: Terrell Schroeder MD PCP: Karin Khanna DO Status: REG CLI Study: Breast w/o and/or W Cont Bilat Date of Exam: 11/10/16 Exam# [id number] Ordering Dr: Karin Khanna DO STUDY: BILATERAL BREAST MR WITHOUT AND WITH CONTRAST REASON FOR EXAM: Female, 55 years old. 2 month history of right breast pain. TECHNIQUE: Multi-sequence multi-echo imaging of both breasts was performed with a dedicated breast coil. T1-weighted and T2-weighted images were performed before the administration of contrast. T1-weighted images were also performed after the administration of 6 mL o f Gadavist contrast intravenously without complications. COMPARISON: Diagnostic mammography dated October 29, 2016 and right breast ultrasound on the same day. FINDIN GS: RIGHT BREAST: The breast tissue is scattered fibroglandular densities with minimal background enhancement. There is a small simple cyst in the posterior aspect of the breast at about the nipple le chris measuring 8 mm in widest diameter. There are no abnormal enhancing masses or areas of non-mass enhancement in the right breast. LEFT BREAST: The breast tissue is scattered fibroglandular densitie s with minimal background enhancement. There are multiple small simple cysts randomly distributed. There are no abnormal enhancing masses or areas of non-mass enhancement in the left breast. There are no enlarged or abnormal lymph nodes. There is no abnormality in the visualized regions of the chest or liver. MRI/Breast w/o and/or W Cont Bilat IMPRESSION: Cysts in both breasts as described. No other significant abnormality. Yearly follow-up screening mammogram would be appropriate.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 hardware. 3. Biceps tendon is intact and there is no evidence of a tear of the lacertus fibrosis or biceps muscle belly is visualized. Electronically Signed: Manolo James MD at 11:09 EDT Tel , Service support [phone], CC: LASHONDA BUTLER; Venus Khanna DO Tube Turner: Signed 05-Feb-2015 OT Discharge Summary Result: Comments: See Note; NOTES: [facility] [address] [place] [address] Fax REHABILITATION SERV ICES DISCHARGE SUMMARY MR#: [id number] Acct: [id number] Name: CHELSEA HENNING Rep #: [id number] : 1960 54 From: Citlaly Moctezuma Referring DrMarquis: LASHONDA BUTLER Status: DIS RCR Eval Date: D ischarge Date: 02/04/15 DATE OF SERVICE: Chelsea's initial occupational therapy evaluation occurred on July 11, 2014. She was referred by Dr. Lashonda Butler with a diagnosis of left elbow fracture. She underwent an ORIF on June 28, 2014. She was seen in our outpatient occupational therapy clinic for a total of 57 visits to address increased pain in the left elbow and soreness in left wrist, decreased tracer clerk and pinch strength in left hand, decreased active range of motion in left elbow, forearm and wrist and decreased independence with ADLs. Treatment methods included pain management, mary ma control, active/passive range of motion exercises and stretch, orthosis fabrication, scar management/desensitization, modalities and progressive resistive strengthening. A home exercise program was also implemented to enhance functional abilities. Chelsea progressed well in her therapy sessions. She has achieved left elbow extension negative 35 degrees, left elbow flexion 135 degrees, left tracer clerk st rength 45 pounds. Chelsea has currently plateaued Her strength has greatly improved and she is using the static progressive brace consistently at home. The plan is to have her keep using the brace until so she no longer feels a stretch. Therefore, she will be discharged from occupational therapy. Citlaly Moctezuma, OTR/L T: SHAE JOB: [id number] <Electronically signed by Citlaly Merino cki > 02/05/15 1304 CC: Signed 29-Nov-2014 Lumbar Spine 2 or 3 Views Result: Comments: See Note; NOTES: [facility] Imaging Services [address] [place] [address] Radiology Report MR#: [id number] Acct: [id number] Name: CHELSEA HENNING Rep #: [id number] : 1960 F 54 From: Renato Maria MD PCP: Karin Khanna DO Status: REG CLI Study: Lumbar Spine 2 or 3 Views Date of Exam: 11/29/14 Exam# [id number] Ordering Dr: JASVIR ACRDOZA STUDY: X-RAY - LUMBAR SPINE REASON FOR EXAM: Female, 54 years old. Back pain TECHNIQUE: 3 view(s) of the lumbar spine were obtained. COMPARISON: None FINDINGS: Mild dex troscoliosis There is a normal alignment of the vertebrae. No evidence for acute fracture or subluxation. Disc space heights are well-maintained although there is mild multilevel osteophytic spurring The soft tissue structures are unremarkable. IMPRESSION: Mild spondylosis. No evidence for acute fracture Electronically Signed: Renato Maria MD at 10:23 EDT , Service support [phone], CC: Karin Khanna DO; JASVIR CARDOZA Tube Turner: Signed 04-Sep-2014 Dexa Bone Density Study (HP) Result: Comments: See Note; NOTES: [facility] Imaging Services [address] [place] [address] Bone Density Report MR#: [id number] Acct: [id number] Name: CHELSEA HENNING Rep #: [id number] : 1960 F 53 From: Salvador Pike MD PCP: Karin Khanna DO Status: [facility] Study: Dexa Bone Density Study (HP) Date of Exam: 09/04/14 Exam# [id number] Ordering Dr: Karin Khanna DO STUDY: DUAL ENERGY X-RAY ABSORPTIOMETRY / DXA REASON FOR EXAM: Female, 53 years old. Osteopenia. TECHNIQUE: Bone Mineral Density (BMD) measurements of lumbar spine and bilateral hips were obtained. COMPARISON: None. FINDINGS: Lumbar Spine (L1-L4): g/cm2 (0.988) / T-score (-1.5) / Z-score (-0.7) Findings are suggestive of osteopenia with a moderate fract ure risk. Left Femur Total: g/cm2 (0.884) / T-score (-1.0) / Z-score (-0.3) Left Femoral Neck: g/cm2 (0.649) / T-score (-2.8) / Z-score (-1.8) Right Femur Total: g/cm2 (0.839) / T-score (-1.3) / Z-s core (-0.7) Right Femoral Neck: g/cm2 (0.637) / T-score (-2.9) / Z-score (-1.9) IMPRESSION: The patient is considered osteoporotic at the level of the femoral ne ck as outlined below according to World Regulo Organization (WHO) criteria with a moderate fracture risk. Reference Information: The T-score is the number of sta ndard deviations above or below the standard which is normal for young adults at their peak bone mineral density. The World Health Organization (WHO) interprets the T-scores as follows: Above -1 No rmal bone density Between -1 and -2.5 Osteopenia Equal to / or below -2.5 Osteoporosis As a practical clinical guideline, osteopenia may be graded as follows: Mild -1 through -1.5 Moderate -1.6 th rough -2.0 Severe -2.1 through -2.4 The Z-score is the number of standard deviations above or below age-matched controls. A Z-score of less than -1.5 would be considered abnormal. References: 1. NIH Osteoporosis and Related Bone Diseases http://www.osteo.org 2. International Society for Clinical Densitometry http://www.iscd.org 3. National Osteoporosis Foundation http://www.nof.org Cameron oswald Signed: Salvador Pike MD at 12:33 EST Tel [phone], Service support [phone], CC: Karin Khanna DO Tube Turner: Signed 04-Sep-2014 Dexa Bone Density Study (HP) Result: Comments: See Note; NOTES: [facility] Imaging Services [address] [place] [address] Bone Density Report MR#: [id number] Acct: [id number] Name: CHELSEA HENNING Rep #: [id number] : 1960 F 53 From: Salvador Pike MD PCP: Karin Khanna DO Status: REG CLI Study: Dexa Bone Density Study (HP) Date of Exam: 09/04/14 Exam# [id number] Ordering Dr: Karin Khanna DO ADDENDUM by Salvador Pike MD on 09/10/14 at 1026 ADDENDUM This is an addendum report Com parison is made with prior outside examination dated February 04, 2012. Since prior examination, there has been a decrease in the bone density of the proximal left femur of 7.9%. Electronically Signed: Salvador Pike MD at 10:26 EST Tel [phone], Service support [phone], 09/10/14 1026 Date cc: Karin Khanna DO * Signed STUDY: DUAL ENERGY X-RAY ABSORPTIOMETRY / DXA REASON FOR EXAM: Female, 53 years old. Osteopenia. TECHNIQUE: Bone Mineral Density (BMD) measurements of lumbar spine and bilateral hips were obtained. COMPARISO N: None. FINDINGS: Lumbar Spine (L1-L4): g/cm2 (0.988) / T-score (-1.5) / Z-score (-0.7) Findings are suggestive of osteopenia with a moderate fracture risk. Left Femur Total: g/cm2 (0.884) / T-score (-1.0) / Z-score (-0.3) Left Femoral Neck: g/cm2 (0.649) / T-score (-2.8) / Z-score (-1.8) Right Femur Total: g/cm2 (0.839) / T-score (-1.3) / Z-score (-0.7) Right Femoral Neck: g/cm2 (0.637) / T-score (-2.9) / Z-score (-1.9) IMPRESSION: The patient is considered osteoporotic at the level of the femoral neck as outli dhara below according to World Regulo Organization (WHO) criteria with a moderate fracture risk. Reference Information: The T-score is the number of standard deviat ions above or below the standard which is normal for young adults at their peak bone mineral density. The World Health Organization (WHO) interprets the T- scores as follows: Above -1 Normal bone de nsity Between -1 and -2.5 Osteopenia Equal to / or below -2.5 Osteoporosis As a practical clinical guideline, osteopenia may be graded as follows: Mild - 1 through -1.5 Moderate -1.6 through -2.0 Severe -2.1 through -2.4 The Z-score is the number of standard deviations above or below age-matched controls. A Z-score of less than -1.5 would be considered abnormal. References: 1. NIH Osteopor osis and Related Bone Diseases http://www.osteo.org 2. International Society for Clinical Densitometry http://www.iscd.org 3. National Osteoporosis Foundation http://www.nof.org Electronically Sarah d: Salvador Pike MD at 12:33 EST Tel [phone], Service support [phone], CC: Karin Khanna DO Tube Turner: Signed 16-Jul-2014 Initial Evaluation - OT Result: Comments: See Note; NOTES: [facility] [address] [place] [address] Fax REHABILITATION [facility] INITIAL EVALUATION MR#: [id number] Acct: [id number] Name: CHELSEA HENNING Rep #: [id number] : 1960 53 From: Citlaly Moctezuma Referring Dr.: LASHONDA BUTLER Status: REG RCR Insurance: A NTHEM Eval Date: DATE OF SERVICE: This 53-year-old female patient was referred to our care by Dr. Lashonda Butler with a diagnosis of left elbow fracture. The initial occupational therapy evaluation was completed on July 11, 2014. SUBJECTIVE: The patient reported that she sustained left elbow fracture when she slipped and fell on black ice and landed on her left wrist and left elbow. The patient underwent an ORIF surgery on June 28, 2014. She also underwent an ulnar nerve reposition on that same day. The doctor's goals for the patient are to have her left elbow range of motion increase to 130s approximately. For now, the doctor has given the precaution that the patient only move her elbow in elbow flexion between 30 degrees to 130 degrees. The doctor also recommended that the patient only remove the sling when taking showers or during occupational therapy visits. 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 At the time of the surgery, Steri-Strips were placed over the patient's surgery incision and the patient was also fitted for a left arm sling and brace which will keep her arm at 90 degrees and this will potentially be removed on July 25 at her next visit with her doctor. The patient reported the following coexisting conditions: Rheumatoid arthritis, type 1 diabetes, left frozen shoulder since 3 years ago and potentially a left wr ist sprain. PAIN: The patient rated pain as 3-4/10 at rest in her left elbow and describes this pain as dull and aching. The patient reported pain as 5/10 occasionally and describes this pain as sharp and shooting. She also reported soreness in her left wrist. ADLS: The doctor has recommended that the patient now lift objects with her left hand and the patient is currently not working and is not expected to work between 6 weeks to 3 months, postop operation. The patient also reported that she cannot give herself diabetes type [address] insulin [address] for extended periods of t vero. She has difficulty showering due to preventing her arm from getting wet, so she has to wear a plastic covering over this when showering. OBJECTIVE: The patient is right-handed. Upon observati on, 3 Steri-Strips were still in place. The incision at the surgery site looked intact and had healed well. No infection was observed. The patient's left elbow showed slight bruising and edema and s he reported this as sensitive at the incision site. The patient's active assistive range of motion was as follows: Right elbow flexion was a 140 degrees and extension was 0 degrees. Left elbow fle xion was -40 degrees and extension was 90 degrees. Forearm supination was within functional limits for her right forearm and the left forearm was within functional limits for supination but the tootie ent could only achieve neutral position in pronation with her left forearm. The patient's active range of motion was as follows: Wrist flexion was 75 degrees in her right wrist and extension was als o was 75 degrees. Left wrist flexion was 25 degrees and extension was 60 degrees. All finger and thumb movements were within functional limits. Anatomy And Physiology Instructor strength in right hand was 50 degrees and the lef t hand was not tested. This will be deferred until a later date. Lateral pinch strength was 11 pounds in the right hand and tripod pinch strength was 10 pounds in the right hand. Left hand was not tested for pinch strength and this will be deferred until later date. ASSESSMENT: The patient's rehab potential is good. The patient's functional problems are as follows: Increased pain in left elbo w and soreness in left wrist, decreased tracer clerk and pinch strength in left hand, decreased active range of motion in left elbow, forearm and wrist and decreased ADLs, to include medication management f or her type 1 diabetes. The patient is currently not working, decreased driving and the patient is not currently lifting any objects with her left hand. GOALS: 1. The patient will report pain no greater than 1/10 in left elbow and wrist during functional activities by discharge. 2. 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 3. The patient will increase pinch strength in left hand equal to her right in order to administer insulin injections for diabetes type 1 by disch arge. 4. The patient will increase active range of motion in left elbow, forearm and wrist to within normal limits in order to drive for extended periods of time for her job by discharge. TREATME NT PLAN: The patient will attend occupational therapy 3 times per week for 4 weeks for 30 minutes each session. Treatments will include by not be limited to hot and cold modalities, pain management, active assistive range of motion stretches, orthosis fabrication and modification as needed, scar management and eventually strengthening once this is cleared by her doctor. A home exercise plan yulisa l include cold packs at night for decreased swelling, hot packs during day to pain and active assistive range of motion stretches in elbow and forearm in supine position with 10 repetitions and 2 sets periodically throughout the day in order to increase range of motion. Citlaly Moctezuma, GIANR/L T: SHAE JOB: [id number] <Electronically signed by Citlaly Moctezuma > 1 09/16/13 0852 CC: Signed For Medicare only, by signing this I certify the plan of care. Physicians Signature Date 01-Jan-2014 Abdomen/Pelvis without Cont Result: Comments: See Note; NOTES: [facility] Imaging Services [address] [place] [address] CAT Scan Report MR#: [id number] Acct: [id number] Name: CHELSEA HENNING Rep #: [id number] : 1960 F 53 From: Sid Conklin MD PCP: Karin Khanna DO Status: REG CLI Study: Abdomen/Pelvis without Cont Date of Exam: 01/01/14 Exam# [id number] Ordering Dr: Roseanne Liu MD STUDY : CT ABDOMEN AND PELVIS WITHOUT CONTRAST REASON FOR EXAM: Female, 53 years old. Kidney stone. RADIATION DOSAGE (If Supplied By Facility): CTDIvol = ( 9.44 ) mGy, DLP = ( 406.21 ) mGycm TECHNIQUE: Transaxial images were obtained from the dome of the diaphragm to the symphysis pubis without oral contrast, and without intravenous contrast. Sagittal and coronal images were reconstructed. COMPAR KAYLENE: 06/30/12.. FINDINGS: The visualized lung bases are unremarkable. The visualized portions of the heart are within normal limits. Normal liver. The gallbla dder is contracted. Normal spleen. Normal pancreas. Normal bilateral adrenal glands. Normal right kidney. Normal left kidney. Normal visualized stomach. Normal small intestine. Normal colon. The appendix is visualized and appears normal. Normal abdominal aorta. Normal inferior vena cava. Normal retroperitoneum. Normal urinary bladder. Normal visualized uterus. Normal abdominal wall. Nor mal osseous structures. IMPRESSION: Normal unenhanced CT of the abdomen and pelvis. The gallbladder incompletely evaluated. Electronically Signed: Sid bentley MD at 16:49 EDT Tel , Service support [phone], CC: Roseanne Liu MD; Karin Khanna DO Tube Turner: Signed 27-Dec-2013 Kidney and Bladder Result: Comments: See Note; NOTES: [facility] Imaging Services [address] [place] [address] Ultrasound Report MR#: [id number] Acct: [id number] Name: CHELSEA HENNING He Rep #: [id number] : 1960 F 53 From: Rajeev Farias DO PCP: Karin Khanna DO Status: REG CLI Study: Kidney and Bladder Date of Exam: 12/27/13 Exam# [id number] Ordering Dr: Karin Khanna DO STUDY: RENAL ULTRAS OUND - COMPLETE REASON FOR EXAM: Female, 53 years old. Right flank pain for 2 months. TECHNIQUE: Ultrasound evaluation of the kidneys was performed with real-time and static echavarria-scale imaging. C OMPARISON: CT the abdomen and pelvis, June 30, 2012. Right upper quadrant ultrasound, July 07, 2012 FINDINGS: RIGHT KIDNEY: Normal location of the right kidney, which is normal in size. The right kidney measures 11.5 cm. There is a normal cortex of the right kidney. The renal cortex measures 1.4 cm. There is a 1.4 x 1.0 x 1.5 cm cyst along the media l aspect of the mid to lower kidney. There are multiple small echogenic foci in the central kidney suggesting small calculi. No shadowing is noted. There is no right hydronephrosis. DISTAL RIGHT URE TER: There is non-visualization of the distal right ureter. There is no demonstrated right ureterovesical junction calculus. There is no demonstrated right ureteral jet. LEFT KIDNEY: Normal location of the left kidney, which is normal in size. The left kidney measures 11.2 cm. There is a normal cortex of the left kidney. The renal cortex measures 1.1 cm. There is no left renal mass or cyst. The re are a few small echogenic foci within the left kidney without acoustic shadowing. There is no left hydronephrosis. DISTAL LEFT URETER: There is non- visualization of the distal left ureter. There is no demonstrated left ureterovesical junction calculus. There is no demonstrated left ureteral jet. BLADDER: The distended urinary bladder demonstrates normal wall thickness. There is no demonstra hank mass within the urinary bladder. There are no demonstrated bladder calculi. IMPRESSION: 1. The kidneys are normal in size and cortical thickness. 2. Small r ight renal cyst. 3. Small echogenic foci within both kidneys without acoustic shadowing. Small non-shadowing calculi cannot be ruled out. 4. Normal urinary bladder. Electronically Signed: Rajeev dale, DO at 19:47 EDT Tel [phone], Service support [phone], CC: Karin Khanna DO Tube Turner: Signed 27-Dec-2013 L/S Spine Min 4 Views Result: Comments: See Note; NOTES: [facility] Imaging Services [address] [place] [address] Radiology Report MR#: [id number] Acct: [id number] Name: CHELSEA HENNING Rep #: [id number] : 1960 F 53 From: Rajeev Farias DO PCP: Karin Khanna DO Status: REG CLI Study: L/S Spine Min 4 Views Date of Exam: 12/27/13 Exam# [id number] Ordering Dr: Karin Khanna DO STUDY: X-RAY - SHIRA MBAR SPINE REASON FOR EXAM: Female, 53 years old. Chronic pain. Arthritis. TECHNIQUE: 5 view(s) of the lumbar spine were obtained. COMPARISON: None FINDINGS: There is straightening of the normal lumbar lordosis. There is no substantial scoliosis. There is a normal alignment of the vertebrae. Normal vertebral bodies and endplates. Normal disc space heigh ts. There is no evidence of acute fracture or loss of vertebral axial height. There is no demonstrated spondylolysis of the pars interarticulares. There is generalized osteopenia the visualized bony structures. The soft tissue structures are unremarkable. IMPRESSION: Osteopenia of the lumbar spine. Electronically Signed: Rajeev Fraias DO at 20 :52 EDT Tel [phone], Service support [phone], CC: Karin Khanna DO Tube Turner: Signed 23-Nov-2013 Esophagus Only Result: Comments: See Note; NOTES: [facility] Imaging Services [address] [place] [address] Radiology Report MR#: [id number] Acct: [id number] Name: CHELSEA HENNING Rep #: [id number] : 1960 F 53 From: Salvador Pike MD PCP: Karin Khanna DO Status: REG CLI Study: Esophagus Only Date of Exam: 11/23/13 Exam# [id number] Ordering Dr: Karin Khanna DO STUDY: X-RAY - ES OPHAGUS (BARIUM SWALLOW) WITH FLUOROSCOPY REASON FOR EXAM: Female, 53 years old. Dysphagia. TECHNIQUE: Multiple view(s) of the esophagus were obtained following swallowing of barium. FLUOROSCOPY TIME (if supplied): (0:45) minutes/seconds COMPARISON: None. FINDINGS: There is no demonstrated esophageal foreign body. There is no demonstrated stricture or mucosal abnormality. Normal gastroesophageal junction, without a demonstrated hiatal hernia. The patient ingested a 12 mm tablet of barium. There is transient holdup of the tablet at the gastroesophag eal CC: Karin Khanna DO Tube Turner: Signed 23-Nov-2013 Thyroid Result: Comments: See Note; NOTES: [facility] Imaging Services [address] [place] [address] Ultrasound Report MR#: [id number] Acct: [id number] Name: CHELSEA HENNING Rep #: [id number] : 1960 F 53 From: Salvador Pike MD PCP: Karin Khanna DO Status: REG CLI Study: Thyroid Date of Exam: 11/23/13 Exam# [id number] Ordering Dr: Karin Khanna DO STUDY: THYROID ULTRASOU ND REASON FOR EXAM: Female, 53 years old. Thyroid nodules. TECHNIQUE: Ultrasound evaluation of the thyroid was performed with real-time and static gonzales-scale imaging. COMPARISON: Comparison is ami ceballos with prior study dated January 19, 2013. FINDINGS: RIGHT LOBE: The right lobe of the thyroid gland measures 4.0 cm x 1.6 cm x 1.1 cm. There is a heterogeneous e chotexture. There is a stable 6 mm x 2 mm x 2 mm hypoechoic nodule in the upper midportion of the right lobe. This is unchanged. LEFT LOBE: The left lobe of the thyroid gland measures 4.1 cm x 1.2 c m x 1.1 cm. There is a heterogeneous echotexture. There is a stable 5 mm x 5 mm x 4 mm hypoechoic solid nodule in the upper midportion of the left lobe. ISTHMUS: The isthmus measures 2.0 mm. IMPRESSION: Heterogeneous echotexture of both lobes of the thyroid with stable bilateral nodules. Electronically Signed: Salvador Pike MD at 12:56 EDT Tel [phone], Service support [phone], CC: Karin Khanna DO Tube Turner: Signed Family History Unknown Family Member Name Dates Details Brother 2 Comments: 2 sisters - living and healthy Status: Active Family Members In General Comments: Diabetes Status: Active Father Comments: Type 2 diabetes- living -- low hdl- colon cancer age 81- stroke x2 Status: Active great aunt with breast cancer in 60s Status: Active Mother Comments: age 46- had hysterectomy then from pulmonary embolism Status: Active Sister 1 Comments: living and healthy Status: Active Social History Name Dates Details Alcohol Use: Drinks wine. Occasional alcohol use. Status: Active Caffeine Use Comments: 2 servings/cola per day Status: Active Exercise History: Exercises regularly. walking. 4 x week. Status: Active No Drug Use Status: Active Tobacco Use: Never smoker. Status: Active Smoking Status Name Dates Details Never smoker Vital Signs Date Test Result Details [id number] Temperature 97.1 f Comments: Method: Temporal Pulse 66 /min Comments: Pattern: Regular Respiration Rate 16 /min Comments: Pattern: Unlabored BP Systolic 104 mm[Hg] Comments: Patient Position: Sitting; Cuff Location: Left Arm; Cuff Size: Standard BP Diastolic 62 mm[Hg] Comments: Patient Position: Sitting; Cuff Location: Left Arm; Cuff Size: Standard Weight 132 lb Height 63.75 in Body Mass Index Calculated 22.84 kg/m2 Body Surface Area Calculated 1.63 m2 :46 Temperature 97.9 f Comments: Method: Temporal Pulse 74 /min Comments: Pattern: Regular Respiration Rate 20 /min Comments: Pattern: Unlabored O2 SAT 98 % Comments: Room air BP Systolic 104 mm[Hg] Comments: Patient Position: Sitting; Cuff Location: Left Arm; Cuff Size: Standard BP Diastolic 70 mm[Hg] Comments: Patient Position: Sitting; Cuff Location: Left Arm; Cuff Size: Standard Weight 134 lb Height 63.75 in Body Mass Index Calculated 23.18 kg/m2 Body Surface Area Calculated 1.65 m2 :51 Temperature 98.1 f Comments: Method: Temporal Pulse 63 /min Comments: Pattern: Regular Respiration Rate 16 /min Comments: Pattern: Unlabored BP Systolic 118 mm[Hg] Comments: Patient Position: Sitting; Cuff Location: Left Arm; Cuff Size: Standard BP Diastolic 68 mm[Hg] Comments: Patient Position: Sitting; Cuff Location: Left Arm; Cuff Size: Standard Weight 130.375 lb Height 63.75 in Body Mass Index Calculated 22.55 kg/m2 Body Surface Area Calculated 1.63 m2 :17 Temperature 98.4 f Comments: Method: Temporal Pulse 68 /min Comments: Pattern: Regular Respiration Rate 16 /min Comments: Pattern: Unlabored BP Systolic 100 mm[Hg] Comments: Patient Position: Sitting; Cuff Location: Left Arm; Cuff Size: Standard BP Diastolic 68 mm[Hg] Comments: Patient Position: Sitting; Cuff Location: Left Arm; Cuff Size: Standard Weight 133.375 lb Height 63.75 in Body Mass Index Calculated 23.07 kg/m2 Body Surface Area Calculated 1.64 m2 :06 Temperature 98.2 f Comments: Method: Temporal Pulse 70 /min Comments: Pattern: Regular Respiration Rate 16 /min Comments: Pattern: Unlabored BP Systolic 102 mm[Hg] Comments: Patient Position: Sitting; Cuff Location: Left Arm; Cuff Size: Standard BP Diastolic 62 mm[Hg] Comments: Patient Position: Sitting; Cuff Location: Left Arm; Cuff Size: Standard Weight 133 lb Height 63.75 in Body Mass Index Calculated 23.01 kg/m2 Body Surface Area Calculated 1.64 m2 :48 Temperature 97 f Comments: Method: Temporal Pulse 74 /min Comments: Pattern: Regular Respiration Rate 20 /min Comments: Pattern: Unlabored O2 SAT 98 % Comments: Room air BP Systolic 108 mm[Hg] Comments: Patient Position: Sitting; Cuff Location: Left Arm; Cuff Size: Standard BP Diastolic 74 mm[Hg] Comments: Patient Position: Sitting; Cuff Location: Left Arm; Cuff Size: Standard Weight 134 lb Height 63.75 in Body Mass Index Calculated 23.18 kg/m2 Body Surface Area Calculated 1.65 m2 :56 Temperature 97.8 f Comments: Method: Temporal Pulse 82 /min Comments: Pattern: Regular Respiration Rate 16 /min Comments: Pattern: Unlabored O2 SAT 99 % Comments: Room air BP Systolic 106 mm[Hg] Comments: Patient Position: Sitting; Cuff Location: Left Arm; Cuff Size: Standard BP Diastolic 66 mm[Hg] Comments: Patient Position: Sitting; Cuff Location: Left Arm; Cuff Size: Standard Weight 134 lb Height 63.75 in Body Mass Index Calculated 23.18 kg/m2 Body Surface Area Calculated 1.65 m2 :40 Temperature 97.8 f Comments: Method: Temporal Pulse 60 /min Comments: Pattern: Regular Respiration Rate 16 /min Comments: Pattern: Unlabored O2 SAT 99 % Comments: Room air BP Systolic 92 mm[Hg] Comments: Patient Position: Sitting; Cuff Location: Left Arm; Cuff Size: Standard BP Diastolic 60 mm[Hg] Comments: Patient Position: Sitting; Cuff Location: Left Arm; Cuff Size: Standard Weight 134 lb Height 63.75 in Body Mass Index Calculated 23.18 kg/m2 Body Surface Area Calculated 1.65 m2 :13 Temperature 97.6 f Comments: Method: Temporal Pulse 56 /min Comments: Pattern: Regular Respiration Rate 18 /min Comments: Pattern: Unlabored O2 SAT 100 % Comments: Room air BP Systolic 124 mm[Hg] Comments: Patient Position: Sitting; Cuff Location: Left Arm; Cuff Size: Standard BP Diastolic 82 mm[Hg] Comments: Patient Position: Sitting; Cuff Location: Left Arm; Cuff Size: Standard Weight 133.375 lb Height 63.75 in Body Mass Index Calculated 23.07 kg/m2 Body Surface Area Calculated 1.64 m2 :13 Temperature 97.2 f Comments: Method: Temporal Pulse 62 /min Comments: Pattern: Regular Respiration Rate 16 /min Comments: Pattern: Unlabored O2 SAT 99 % Comments: Room air BP Systolic 118 mm[Hg] Comments: Patient Position: Sitting; Cuff Location: Left Arm; Cuff Size: Standard BP Diastolic 64 mm[Hg] Comments: Patient Position: Sitting; Cuff Location: Left Arm; Cuff Size: Standard Weight 133 lb Height 63.75 in Body Mass Index Calculated 23.01 kg/m2 Body Surface Area Calculated 1.64 m2 :16 Temperature 99.5 f Pulse 87 /min Comments: Pattern: Regular Respiration Rate 17 /min Comments: Pattern: Unlabored O2 SAT 98 % Comments: Room air BP Systolic 114 mm[Hg] Comments: Patient Position: Sitting; Cuff Location: Left Arm; Cuff Size: Standard BP Diastolic 72 mm[Hg] Comments: Patient Position: Sitting; Cuff Location: Left Arm; Cuff Size: Standard Weight 134 lb Height 63.75 in Body Mass Index Calculated 23.18 kg/m2 Body Surface Area Calculated 1.65 m2 :21 Temperature 97.6 f Comments: Method: Temporal Pulse 68 /min Comments: Pattern: Regular Respiration Rate 16 /min Comments: Pattern: Unlabored O2 SAT 98 % Comments: Room air BP Systolic 126 mm[Hg] Comments: Patient Position: Sitting; Cuff Location: Left Arm; Cuff Size: Standard BP Diastolic 66 mm[Hg] Comments: Patient Position: Sitting; Cuff Location: Left Arm; Cuff Size: Standard Weight 132 lb Height 63.75 in Body Mass Index Calculated 22.84 kg/m2 Body Surface Area Calculated 1.63 m2 :41 Temperature 97 f Comments: Method: Temporal Pulse 80 /min Comments: Pattern: Regular Respiration Rate 18 /min Comments: Pattern: Unlabored O2 SAT 98 % Comments: Room air BP Systolic 122 mm[Hg] Comments: Patient Position: Sitting; Cuff Location: Left Arm; Cuff Size: Large BP Diastolic 78 mm[Hg] Comments: Patient Position: Sitting; Cuff Location: Left Arm; Cuff Size: Large Weight 133.375 lb Height 63.75 in Body Mass Index Calculated 23.07 kg/m2 Body Surface Area Calculated 1.64 m2 :51 Pulse 72 /min Comments: Pattern: Regular Respiration Rate 18 /min Comments: Pattern: Unlabored O2 SAT 98 % Comments: Room air BP Systolic 122 mm[Hg] Comments: Patient Position: Sitting; Cuff Location: Left Arm; Cuff Size: Standard BP Diastolic 78 mm[Hg] Comments: Patient Position: Sitting; Cuff Location: Left Arm; Cuff Size: Standard Weight 133.25 lb Height 63.75 in Body Mass Index Calculated 23.05 kg/m2 Body Surface Area Calculated 1.64 m2 :49 Pulse 74 /min Comments: Pattern: Regular Respiration Rate 18 /min Comments: Pattern: Unlabored O2 SAT 98 % Comments: Room air BP Systolic 128 mm[Hg] Comments: Patient Position: Sitting; Cuff Location: Left Arm; Cuff Size: Standard BP Diastolic 62 mm[Hg] Comments: Patient Position: Sitting; Cuff Location: Left Arm; Cuff Size: Standard Weight 134.5 lb Height 63.75 in Body Mass Index Calculated 23.27 kg/m2 Body Surface Area Calculated 1.65 m2 :07 Temperature 100.6 f Comments: Method: Temporal Pulse 96 /min Comments: Pattern: Regular Respiration Rate 16 /min Comments: Pattern: Unlabored O2 SAT 96 % Comments: Room air BP Systolic 124 mm[Hg] Comments: Patient Position: Sitting; Cuff Location: Left Arm; Cuff Size: Standard BP Diastolic 62 mm[Hg] Comments: Patient Position: Sitting; Cuff Location: Left Arm; Cuff Size: Standard Weight 137 lb Height 63.75 in Body Mass Index Calculated 23.7 kg/m2 Body Surface Area Calculated 1.66 m2 :34 Temperature 98.8 f Comments: Method: Temporal Pulse 80 /min Comments: Pattern: Regular Respiration Rate 15 /min Comments: Pattern: Unlabored O2 SAT 98 % Comments: Room air BP Systolic 104 mm[Hg] Comments: Patient Position: Sitting; Cuff Location: Left Arm; Cuff Size: Standard BP Diastolic 68 mm[Hg] Comments: Patient Position: Sitting; Cuff Location: Left Arm; Cuff Size: Standard Weight 137 lb Height 63.75 in Body Mass Index Calculated 23.7 kg/m2 Body Surface Area Calculated 1.66 m2 :56 Temperature 98.8 f Comments: Method: Temporal Pulse 76 /min Comments: Pattern: Regular Respiration Rate 16 /min Comments: Pattern: Unlabored O2 SAT 98 % Comments: Room air BP Systolic 110 mm[Hg] Comments: Patient Position: Sitting; Cuff Location: Left Arm; Cuff Size: Standard BP Diastolic 74 mm[Hg] Comments: Patient Position: Sitting; Cuff Location: Left Arm; Cuff Size: Standard Weight 135 lb Height 63.75 in Body Mass Index Calculated 23.35 kg/m2 Body Surface Area Calculated 1.65 m2 :13 Temperature 97.9 f Comments: Method: Oral Pulse 62 /min Comments: Pattern: Regular Respiration Rate 16 /min Comments: Pattern: Unlabored BP Systolic 112 mm[Hg] Comments: Patient Position: Sitting; Cuff Location: Left Arm; Cuff Size: Standard BP Diastolic 60 mm[Hg] Comments: Patient Position: Sitting; Cuff Location: Left Arm; Cuff Size: Standard Weight 135 lb Height 63.75 in Body Mass Index Calculated 23.35 kg/m2 Body Surface Area Calculated 1.65 m2 :04 Temperature 98.4 f Comments: Method: Oral Pulse 72 /min Comments: Pattern: Regular Respiration Rate 16 /min Comments: Pattern: Unlabored BP Systolic 108 mm[Hg] Comments: Patient Position: Sitting; Cuff Location: Left Arm; Cuff Size: Standard BP Diastolic 60 mm[Hg] Comments: Patient Position: Sitting; Cuff Location: Left Arm; Cuff Size: Standard Weight 134 lb Height 63.75 in Body Mass Index Calculated 23.18 kg/m2 Body Surface Area Calculated 1.65 m2 :30 Temperature 99 f Comments: Method: Oral Pulse 94 /min Comments: Pattern: Regular Respiration Rate 16 /min Comments: Pattern: Unlabored BP Systolic 140 mm[Hg] Comments: Patient Position: Sitting; Cuff Location: Left Arm; Cuff Size: Standard BP Diastolic 68 mm[Hg] Comments: Patient Position: Sitting; Cuff Location: Left Arm; Cuff Size: Standard Weight 127 lb Height 63.75 in Body Mass Index Calculated 21.97 kg/m2 Body Surface Area Calculated 1.61 m2 :11 Temperature 97.6 f Comments: Method: Axillary Pulse 102 /min Comments: Pattern: Regular Respiration Rate 17 /min Comments: Pattern: Unlabored O2 SAT 98 % Comments: Room air BP Systolic 120 mm[Hg] Comments: Patient Position: Sitting; Cuff Location: Left Arm; Cuff Size: Standard BP Diastolic 74 mm[Hg] Comments: Patient Position: Sitting; Cuff Location: Left Arm; Cuff Size: Standard Weight 134 lb Height 63.75 in Body Mass Index Calculated 23.18 kg/m2 Body Surface Area Calculated 1.65 m2 :08 Temperature 98.4 f Pulse 82 /min Comments: Pattern: Regular Respiration Rate 16 /min Comments: Pattern: Unlabored BP Systolic 118 mm[Hg] Comments: Patient Position: Sitting; Cuff Location: Left Arm; Cuff Size: Standard BP Diastolic 62 mm[Hg] Comments: Patient Position: Sitting; Cuff Location: Left Arm; Cuff Size: Standard Weight 134 lb Height 63.75 in Body Mass Index Calculated 23.18 kg/m2 Body Surface Area Calculated 1.65 m2 :12 Temperature 97.4 f Comments: Method: Temporal Pulse 88 /min Comments: Pattern: Regular Respiration Rate 16 /min Comments: Pattern: Unlabored O2 SAT 99 % Comments: Room air BP Systolic 122 mm[Hg] Comments: Patient Position: Sitting; Cuff Location: Left Arm; Cuff Size: Standard BP Diastolic 76 mm[Hg] Comments: Patient Position: Sitting; Cuff Location: Left Arm; Cuff Size: Standard Weight 132 lb Height 63.75 in Body Mass Index Calculated 22.84 kg/m2 Body Surface Area Calculated 1.63 m2 :52 Temperature 98.8 f Comments: Method: Oral Pulse 76 /min Comments: Pattern: Regular Respiration Rate 16 /min O2 SAT 98 % Comments: Room air BP Systolic 110 mm[Hg] Comments: Patient Position: Sitting; Cuff Location: Left Arm; Cuff Size: Standard BP Diastolic 80 mm[Hg] Comments: Patient Position: Sitting; Cuff Location: Left Arm; Cuff Size: Standard Weight 132 lb Height 63.75 in Body Mass Index Calculated 22.84 kg/m2 Body Surface Area Calculated 1.63 m2 :29 Temperature 98.2 f Pulse 84 /min Comments: Pattern: Regular Respiration Rate 16 /min Comments: Pattern: Unlabored BP Systolic 110 mm[Hg] Comments: Patient Position: Sitting; Cuff Location: Left Arm; Cuff Size: Large BP Diastolic 60 mm[Hg] Comments: Patient Position: Sitting; Cuff Location: Left Arm; Cuff Size: Large Weight 132 lb Height 63.75 in Body Mass Index Calculated 22.84 kg/m2 Body Surface Area Calculated 1.63 m2 :24 Temperature 97.6 f Pulse 76 /min Comments: Pattern: Regular Respiration Rate 16 /min Comments: Pattern: Unlabored BP Systolic 94 mm[Hg] Comments: Patient Position: Sitting; Cuff Location: Left Arm; Cuff Size: Large BP Diastolic 66 mm[Hg] Comments: Patient Position: Sitting; Cuff Location: Left Arm; Cuff Size: Large Weight 137 lb Height 63.75 in Body Mass Index Calculated 23.7 kg/m2 Body Surface Area Calculated 1.66 m2 :39 Weight 134.125 lb Height 63.75 in Body Mass Index Calculated 23.2 kg/m2 Body Surface Area Calculated 1.65 m2 :22 Pulse 89 /min Comments: Pattern: Regular Respiration Rate 16 /min Comments: Pattern: Unlabored O2 SAT 99 % Comments: Room air BP Systolic 120 mm[Hg] Comments: Patient Position: Sitting; Cuff Location: Left Arm; Cuff Size: Standard BP Diastolic 70 mm[Hg] Comments: Patient Position: Sitting; Cuff Location: Left Arm; Cuff Size: Standard Weight 134.125 lb Height 63.75 in Body Mass Index Calculated 23.2 kg/m2 Body Surface Area Calculated 1.65 m2 :42 Temperature 97.1 f Comments: Method: Oral Pulse 80 /min Comments: Pattern: Regular Respiration Rate 16 /min Comments: Pattern: Unlabored BP Systolic 124 mm[Hg] Comments: Patient Position: Sitting; Cuff Location: Left Arm; Cuff Size: Standard BP Diastolic 62 mm[Hg] Comments: Patient Position: Sitting; Cuff Location: Left Arm; Cuff Size: Standard Weight 134.125 lb Height 63.75 in Body Mass Index Calculated 23.2 kg/m2 Body Surface Area Calculated 1.65 m2 :06 Temperature 98.1 f Pulse 84 /min Comments: Pattern: Regular Respiration Rate 16 /min Comments: Pattern: Unlabored BP Systolic 128 mm[Hg] Comments: Patient Position: Sitting; Cuff Location: Left Arm; Cuff Size: Large BP Diastolic 60 mm[Hg] Comments: Patient Position: Sitting; Cuff Location: Left Arm; Cuff Size: Large Weight 133 lb Height 63.75 in Body Mass Index Calculated 23.01 kg/m2 Body Surface Area Calculated 1.64 m2 :54 Temperature 98.3 f Pulse 76 /min Comments: Pattern: Regular Respiration Rate 16 /min Comments: Pattern: Unlabored BP Systolic 122 mm[Hg] Comments: Patient Position: Sitting; Cuff Location: Left Arm; Cuff Size: Large BP Diastolic 64 mm[Hg] Comments: Patient Position: Sitting; Cuff Location: Left Arm; Cuff Size: Large Weight 135 lb Height 63.75 in Body Mass Index Calculated 23.35 kg/m2 Body Surface Area Calculated 1.65 m2 :02 Temperature 97.3 f Pulse 76 /min Comments: Pattern: Regular Respiration Rate 16 /min Comments: Pattern: Unlabored BP Systolic 104 mm[Hg] Comments: Patient Position: Sitting; Cuff Location: Left Arm; Cuff Size: Large BP Diastolic 60 mm[Hg] Comments: Patient Position: Sitting; Cuff Location: Left Arm; Cuff Size: Large Weight 135 lb Height 63.75 in Body Mass Index Calculated 23.35 kg/m2 Body Surface Area Calculated 1.65 m2 :55 Temperature 98.2 f Pulse 76 /min Comments: Pattern: Regular Respiration Rate 16 /min Comments: Pattern: Unlabored BP Systolic 112 mm[Hg] Comments: Patient Position: Sitting; Cuff Location: Left Arm; Cuff Size: Large BP Diastolic 54 mm[Hg] Comments: Patient Position: Sitting; Cuff Location: Left Arm; Cuff Size: Large Weight 132 lb Height 63.75 in Body Mass Index Calculated 22.84 kg/m2 Body Surface Area Calculated 1.63 m2 :44 Temperature 98.1 f Comments: Method: Oral Pulse 76 /min Comments: Pattern: Regular Respiration Rate 18 /min Comments: Pattern: Unlabored BP Systolic 120 mm[Hg] Comments: Patient Position: Sitting; Cuff Location: Left Arm; Cuff Size: Standard BP Diastolic 74 mm[Hg] Comments: Patient Position: Sitting; Cuff Location: Left Arm; Cuff Size: Standard Weight 131 lb Height 63.75 in Body Mass Index Calculated 22.66 kg/m2 Body Surface Area Calculated 1.63 m2 Results Date Description Value Details [id number] HgA1C , Office (24977) HgA1C , Office 6.4 % (Normal) Range: 4.6 - 7.1 43-Jwh-201171:04 RHEUMATOID FACTOR-QUANT Comments: PATIENT NOT FASTINGPERFORMED BY: [employer] [facility] [id number] BY: [address] [id number] ([id number]) RA Latex Turbid. 19.3 {IU/mL} (Abnormal) Range: 0.0-13.9 52-[id number]:04 CCP ANTIBODY (71250) Comments: PATIENT NOT FASTINGPERFORMED BY: [employer] [place] Wovrfh1398 [facility] [id number] BY: [employer] [id number] CCP Antibodies IgG/IgA >250 {units} (Abnormal) Range: 0-19 Comments: Negative <20 Weak positive 20 - 39 Moderate positive 40 - 59 Strong positive >59 [id number]-[id number]:04 C-REACTIVE PROTEIN Comments: PATIENT NOT FASTINGPERFORMED BY: [employer] ControlRobert Ville [id number] [facility] [id number] BY: [facility] [id number] ([id number]) C-Reactive Protein, Quant 4.1 mg/L (Normal) Range: 0.0-4.9 07-Ixn-592831:04 SED RATE ERYTHROCYTE Comments: PATIENT NOT FASTINGPERFORMED BY: [facility]Be[facility]6370 [facility] [id number] BY: [employer] [id number] ([id number]) Sedimentation Rate-Westergren 2 mm/h (Normal) Range: 0-40 35-Pvx-382629:14 Alanine Aminotransferas (SGPT) Comments: [address], 306049(280) ALT 26 U/L (Normal) Range: 13-56 58-Sku-[id number]:14 AST(SGOT) Comments: [address], 275063(785) AST 20 U/L (Normal) Range: 15-37 82-Fwq-190695:14 Basic Metabolic Profile (BMP) Comments: [address], 869531 GAP 7 (Normal) Range: 5-15 CO2 31.0 mmol/L (Normal) Range: 21.0-32.0 CL 101 mmol/L (Normal) Range: 98-107 K 4.4 mmol/L (Normal) Range: 3.5-5.1 NA 139 mmol/L (Normal) Range: 136-145 CA 8.9 mg/dL (Normal) Range: 8.5-10.1 BUN/CRE 21.0 {RATIO} (Abnormal) Range: 10-20 EST GFR - AA 108 mL/min (Normal) Comments: GFR Calc EST GFR 89 mL/min (Normal) Comments: Non- GFR Calc CREAT,SERUM 0.71 mg/dL (Normal) Range: 0.55-1.02 Comments: The validity of the calculated GFR AND GFRAA in patients over70 years has not been determined. Clinical correlation isessential. BUN 15 mg/dL (Normal) Range: 7-18 GLU 118 mg/dL (Abnormal) Range: 74-106 Comments: Fasting Glucose result from 100 to 125 mg/dLsuggests IMPAIRED HOMEOSTASIS per A.D.A. criteria.Please note revised GLUCOSE reference range nltrlhyna60/02/2018. 61-Ecr-[id number]:14 Hemoglobin A1c Comments: [facility] [id number] [place], [address] HGB A1C 6.6 % (Abnormal) Range: 4.2-6.3 52-Mwb-366845:14 Lipid Profile Comments: [facility] [id number] [place], [address] VLDL 7 mg/dL (Normal) Range: 5-40 LDL 92 mg/dL (Normal) Range: 0-130 HDL 82 mg/dL (Normal) Comments: The drugs N-Acetylcysteine and Metamizole may falselydepress this assay. Reference Range HDL <40 mg/dL Low HDL Cholesterol HDL >or= 60 mg/dL High HDL Cholesterol TRIG 37 mg/dL (Normal) Comments: The drugs N-Acetylcysteine and Metamizole may falselydepress this assay.Serum Triglycerides Reference Interval Normal <150 mg/dL Borderline high 150 - 199 mg/dL High 200 - 499 mg/dL Very High > or = 500 mg/dL CHOL 181 mg/dL (Normal) Comments: <200 mg/dL Desirable 200-240 mg/dL Borderline >240 mg/dL High Risk 64-Rbr-[id number]:14 T4 Free Direct Comments: [facility] [id number] [place], [address] T4 FREE DIRECT 1.20 ng/dL (Normal) Range: 0.76-1.46 67-Mts-058695:14 Thyroid Stim Hormone (TSH) Comments: [facility] [address] [place], [address] TSH 1.94 {uIU/mL} (Normal) Range: 0.358-3.74 27-Fsf-591769:14 Vitamin B12 1757 pg/mL (Abnormal) Comments: [facility] [id number], [address] Range: 211-911 90-Dej-465644:14 Vitamin D,25 Hydroxy Comments: [address], [id number] Vitamin D 25-OH 63.2 ng/mL (Normal) Range: 29.95-100.01 Comments: Vitamin D 25(OH) Status Range Deficiency <20 ng/mL (50nmol/L) Insuffciency 20 - 30 ng/mL (50 - 75 nmol/L) Sufficiency 30 - 100 ng/mL (75 - 250 nmol/L) Toxicity >100 ng/mL (>250 nmol/L) :43 Alanine Aminotransferas (SGPT) Comments: [place] [address], [id number] ALT 33 U/L (Normal) Range: 13-56 :43 AST(SGOT) Comments: [address], [id number] AST 22 U/L (Normal) Range: 15-37 :43 Basic Metabolic Profile (BMP) Comments: [address], [id number] GAP 7 (Normal) Range: 5-15 CO2 32.0 mmol/L (Normal) Range: 21.0-32.0 CL 104 mmol/L (Normal) Range: 98-107 K 4.0 mmol/L (Normal) Range: 3.5-5.1 NA 143 mmol/L (Normal) Range: 136-145 CA 8.7 mg/dL (Normal) Range: 8.5-10.1 BUN/CRE 27.2 {RATIO} (Abnormal) Range: 10-20 EST GFR - AA 126 mL/min (Normal) Comments: GFR Calc EST GFR 104 mL/min (Normal) Comments: Non- GFR Calc CREAT,SERUM 0.62 mg/dL (Normal) Range: 0.55-1.02 Comments: The validity of the calculated GFR AND GFRAA in patients over70 years has not been determined. Clinical correlation isessential. BUN 17 mg/dL (Normal) Range: 7-18 GLU 49 mg/dL (Abnormal) Range: 74-106 Comments: Glucose result less than 50 mg/dL suggests HYPOGLYCEMIA.Please note revised GLUCOSE reference range /02/2018. :43 Hemoglobin A1c Comments: [facility] [id number] [place], [place], [id number] HGB A1C 6.8 % (Abnormal) Range: 4.2-6.3 :43 Lipid Profile Comments: [facility] [id number] [place], [address] VLDL 7 mg/dL (Normal) Range: 5-40 LDL 64 mg/dL (Normal) Range: 0-130 HDL 86 mg/dL (Normal) Comments: The drugs N-Acetylcysteine and Metamizole may falselydepress this assay. Reference Range HDL <40 mg/dL Low HDL Cholesterol HDL >or= 60 mg/dL High HDL Cholesterol TRIG 37 mg/dL (Normal) Comments: The drugs N-Acetylcysteine and Metamizole may falselydepress this assay.Serum Triglycerides Reference Interval Normal <150 mg/dL Borderline high 150 - 199 mg/dL High 200 - 499 mg/dL Very High > or = 500 mg/dL CHOL 157 mg/dL (Normal) Comments: <200 mg/dL Desirable 200-240 mg/dL Borderline >240 mg/dL High Risk :43 T4 Free Direct Comments: [facility] [id number] [place], [address] T4 FREE DIRECT 1.25 ng/dL (Normal) Range: 0.76-1.46 :43 Thyroid Stim Hormone (TSH) Comments: [facility] [id number] [place], [address] TSH 2.08 {uIU/mL} (Normal) Range: 0.358-3.74 :43 Vitamin B12 1996 pg/mL (Abnormal) Comments: [facility] [id number] [place], [id number] Range: 211-911 :43 Vitamin D,25 Hydroxy Comments: [facility] [id number] [place], [id number] Vitamin D 25-OH 66.0 ng/mL (Normal) Range: 29.95-100.01 Comments: Vitamin D 25(OH) Status Range Deficiency <20 ng/mL (50nmol/L) Insuffciency 20 - 30 ng/mL (50 - 75 nmol/L) Sufficiency 30 - 100 ng/mL (75 - 250 nmol/L) Toxicity >100 ng/mL (>250 nmol/L) :42 TSH (29628) Comments: PATIENT NOT FASTINGPERFORMED BY: 1RebelRoosevelt General HospitalWdyzrg0075 [facility] [id number] TSH 1.190 {uIU/mL} (Normal) Range: 0.450-4.500 :42 T3, FREE (TRIDOTHYRONINE) (37804) Comments: PATIENT NOT FASTINGPERFORMED BY: 1RebelSaint Clare's Hospital at DoverCrkxbu6090 [facility] [place] [id number] Triiodothyronine (T3), Free 2.1 pg/mL (Normal) Range: 2.0-4.4 :42 T4, FREE (THYROXINE) (67608) Comments: PATIENT NOT FASTINGPERFORMED BY: [employer] ControlBeaumont Hospital6370 [facility] [id number] T4,Free(Direct) 1.68 ng/dL (Normal) Range: 0.82-1.77 :38 Alanine Aminotransferas (SGPT) Comments: [facility] [id number] [place], [id number] ALT 26 U/L (Normal) Range: 13-56 :38 AST(SGOT) Comments: [facility] [address] [place], [address] AST 23 U/L (Normal) Range: 15-37 :38 Basic Metabolic Profile (BMP) Comments: [facility] [address] [place], [id number] GAP 7 (Normal) Range: 5-15 CO2 29.0 mmol/L (Normal) Range: 21.0-32.0 CL 107 mmol/L (Normal) Range: 98-107 K 4.0 mmol/L (Normal) Range: 3.5-5.1 NA 143 mmol/L (Normal) Range: 136-145 CA 8.5 mg/dL (Normal) Range: 8.5-10.1 BUN/CRE 18.6 {RATIO} (Normal) Range: 10-20 EST GFR - AA 135 mL/min (Normal) Comments: GFR Calc EST GFR 111 mL/min (Normal) Comments: Non- GFR Calc CREAT,SERUM 0.59 mg/dL (Normal) Range: 0.55-1.02 Comments: The validity of the calculated GFR AND GFRAA in patients over70 years has not been determined. Clinical correlation isessential. BUN 11 mg/dL (Normal) Range: 7-18 GLU 103 mg/dL (Normal) Range: 74-106 Comments: Fasting Glucose result from 100 to 125 mg/dLsuggests IMPAIRED HOMEOSTASIS per A.D.A. criteria.Please note revised GLUCOSE reference range honweqdep42/02/2018. :38 Hemoglobin A1c Comments: [facility] [address] [place]. [place], [id number] HGB A1C 7.1 % (Abnormal) Range: 4.2-6.3 :38 Lipid Profile Comments: [facility] [address] [place], [address] VLDL 5 mg/dL (Normal) Range: 5-40 LDL 58 mg/dL (Normal) Range: 0-130 HDL 89 mg/dL (Normal) Comments: The drugs N-Acetylcysteine and Metamizole may falselydepress this assay. Reference Range HDL <40 mg/dL Low HDL Cholesterol HDL >or= 60 mg/dL High HDL Cholesterol TRIG 26 mg/dL (Normal) Comments: The drugs N-Acetylcysteine and Metamizole may falselydepress this assay.Serum Triglycerides Reference Interval Normal <150 mg/dL Borderline high 150 - 199 mg/dL High 200 - 499 mg/dL Very High > or = 500 mg/dL CHOL 152 mg/dL (Normal) Comments: <200 mg/dL Desirable 200-240 mg/dL Borderline >240 mg/dL High Risk :38 T4 Free Direct Comments: [facility] [address] [place], [place], [address] T4 FREE DIRECT 1.58 ng/dL (Abnormal) Range: 0.76-1.46 :38 Thyroid Stim Hormone (TSH) Comments: [facility] [address] [place], [place], [id number] TSH 0.73 {uIU/mL} (Normal) Range: 0.358-3.74 27-Ymq-154582:27 Alanine Aminotransferas (SGPT) Comments: [facility] [address] [place], [place], [address] ALT 27 U/L (Normal) Range: 12-78 60-Uss-006712:27 AST(SGOT) Comments: [facility] [address] [place], [place], [address] AST 19 U/L (Normal) Range: 15-37 35-Scw-113954:27 Basic Metabolic Profile (BMP) Comments: [address] [place], [place], [id number] GAP 7 (Normal) Range: 5-15 CO2 29.0 mmol/L (Normal) Range: 21.0-32.0 CL 105 mmol/L (Normal) Range: 98-107 K 4.0 mmol/L (Normal) Range: 3.5-5.1 NA 141 mmol/L (Normal) Range: 136-145 CA 8.8 mg/dL (Normal) Range: 8.5-10.1 BUN/CRE 20.9 {RATIO} (Abnormal) Range: 10-20 EST GFR - AA 116 mL/min (Normal) Comments: GFR Calc EST GFR 96 mL/min (Normal) Comments: Non- GFR Calc CREAT,SERUM 0.67 mg/dL (Normal) Range: 0.55-1.02 Comments: The validity of the calculated GFR AND GFRAA in patients over70 years has not been determined. Clinical correlation isessential. BUN 14 mg/dL (Normal) Range: 7-18 GLU 79 mg/dL (Normal) Range: 70-110 45-Kuc-042723:27 Hemoglobin A1c Comments: [facility] [address] [place], [place], [address] HGB A1C 6.8 % (Abnormal) Range: 4.2-6.3 98-Hwc-918865:27 Lipid Profile Comments: [address] [place], [place], [address] VLDL 6 mg/dL (Normal) Range: 5-40 LDL 71 mg/dL (Normal) Range: 0-130 HDL 108 mg/dL (Normal) Comments: The drugs N-Acetylcysteine and Metamizole may falselydepress this assay. Reference Range HDL <40 mg/dL Low HDL Cholesterol HDL >or= 60 mg/dL High HDL Cholesterol TRIG 28 mg/dL (Normal) Comments: The drugs N-Acetylcysteine and Metamizole may falselydepress this assay.Serum Triglycerides Reference Interval Normal <150 mg/dL Borderline high 150 - 199 mg/dL High 200 - 499 mg/dL Very High > or = 500 mg/dL CHOL 185 mg/dL (Normal) Comments: <200 mg/dL Desirable 200-240 mg/dL Borderline >240 mg/dL High Risk 03-Ztb-388220:27 Microalb:Creat Ratio,Random UR Comments: [facility] [address] [place], [place], [id number] MALB:CREAT 8.2 {mg/g_CRE} (Normal) MICROALBUMIN,UR 11.5 mg/L (Normal) UR CREAT 140.00 mg/dL (Normal) 60-Ivu-642086:27 T4 Free Direct Comments: [facility] [address] [place], [address] T4 FREE DIRECT 1.20 ng/dL (Normal) Range: 0.76-1.46 52-Aun-934424:27 Thyroid Stim Hormone (TSH) Comments: [facility] [address], [address] TSH 4.21 {uIU/mL} (Abnormal) Range: 0.358-3.74 98-Eon-834766:27 Vitamin B12 763 pg/mL (Normal) Comments: [facility] [address] [place], [address] Range: 211-911 78-Bsg-743650:27 Vitamin D,25 Hydroxy Comments: [facility] [address] [place], [id number] Vitamin D 25-OH 59.2 ng/mL (Normal) Comments: Vitamin D 25(OH) Status Range Deficiency <20 ng/mL (50nmol/L) Insuffciency 20 - 30 ng/mL (50 - 75 nmol/L) Sufficiency 30 - 100 ng/mL (75 - 250 nmol/L) Toxicity >100 ng/mL (>250 nmol/L) 63-Ynp-119249:19 CRP Comments: [facility] [address] [place], [address] C-REACTIVE PROT < 2.90 mg/L (Normal) Range: 0.0-3.0 Comments: C-Reactive Protein (CRP) provides useful information for thediagnosis, therapy and monitoring of inflammatory processesand associated diseases. For the evaluation of Relative Riskfor Cardiovascular Dise ase, a High Sensitivity CRP (HSCRP)should be ordered. 10-Qnm-857922:14 CBC W/Diff, Automated Comments: [facility] [address] [place], [address] Absolute Lymph 1.38 {X10_3/ul} (Normal) Range: 0.83-4.51 Absolute Neut 2.1 {X10_3/uL} (Normal) Range: 2.0-7.7 IM GRAN % 0.000 % (Normal) Range: 0.0-0.9 Comments: IG% - Immature Granulocytes (promyelocytes, myelocytes andmetamyelocytes) > 1% indicates that a LEFT SHIFT is Present. BASO% 0.2 % (Normal) Range: 0-1 EO% 4.5 % (Normal) Range: 0-5 MONO% 10.0 % (Normal) Range: 0-10 LY% 34.3 % (Normal) Range: 19-41 NEUT% 51.0 % (Normal) Range: 47-70 MPV 10.6 fL (Normal) Range: 6.2-12.0 PLT 157 K/mm3 (Normal) Range: 150-450 RDW SD 44.0 fL (Abnormal) Range: 35.1-43.9 RDW CV 12.6 % (Normal) Range: 11.6-14.6 MCHC 32.1 {g/gl} (Normal) Range: 32-36 MCH 31.0 pg (Normal) Range: 27.0-32.0 MCV 96.6 fL (Normal) Range: 81-99 HCT 39.9 % (Normal) Range: 37-47 HGB 12.8 g/dL (Normal) Range: 12.0-15.0 RBC 4.13 {M/mm3} (Abnormal) Range: 4.2-5.4 WBC 4.0 K/mm3 (Abnormal) Range: 4.4-11.0 07-Ztf-834471:14 Comprehensive Metabolic Profil Comments: [facility] [address] [place], [address] GAP 8 (Normal) Range: 5-15 CO2 30.0 mmol/L (Normal) Range: 21.0-32.0 CL 101 mmol/L (Normal) Range: 98-107 K 3.9 mmol/L (Normal) Range: 3.5-5.1 NA 139 mmol/L (Normal) Range: 136-145 T BILI 0.50 mg/dL (Normal) Range: 0.20-1.00 ALT 26 U/L (Normal) Range: 12-78 ALK P 89 U/L (Normal) Range: 45-117 AST 21 U/L (Normal) Range: 15-37 CA 8.8 mg/dL (Normal) Range: 8.5-10.1 A/G 1.2 {RATIO} (Normal) Range: 0.9-2.4 GLOB 3.0 g/dL (Normal) Range: 2.2-4.2 ALB 3.6 g/dL (Normal) Range: 3.4-5.0 Comments: Please note revised Albumin AND Globulin reference rangeeffective 2017. T PROT 6.6 g/dL (Normal) Range: 6.4-8.2 BUN/CRE 26.6 {RATIO} (Abnormal) Range: 10-20 EST GFR - AA 115 mL/min (Normal) Comments: GFR Calc EST GFR 95 mL/min (Normal) Comments: Non- GFR Calc CREAT,SERUM 0.68 mg/dL (Normal) Range: 0.55-1.02 Comments: The validity of the calculated GFR AND GFRAA in patients over70 years has not been determined. Clinical correlation isessential. BUN 18 mg/dL (Normal) Range: 7-18 GLU 207 mg/dL (Abnormal) Range: 70-110 Comments: Glucose result greater than or equal to 200 mg/dLsuggests DIABETES MELLITUS per A.D.A. criteria. 12-Oxp-050633:14 Erythrocyte Sed Rate Comments: [address] [place], [address] SED RATE 2 mm/h (Normal) Range: 0-30 8-Psa-971854:39 Alanine Aminotransferas (SGPT) Comments: [facility] [address] [place] [address], [id number] ALT 24 U/L (Normal) Range: 12-78 8-Hld-101977:39 AST(SGOT) Comments: [address], [phone] AST 23 U/L (Normal) Range: 15-37 9-Plg-937891:39 Basic Metabolic Profile (BMP) Comments: [address] [place], [address] GAP 6 (Normal) Range: 5-15 CO2 31.0 mmol/L (Normal) Range: 21.0-32.0 CL 100 mmol/L (Normal) Range: 98-107 K 4.2 mmol/L (Normal) Range: 3.5-5.1 NA 137 mmol/L (Normal) Range: 136-145 CA 8.7 mg/dL (Normal) Range: 8.5-10.1 BUN/CRE 23.4 {RATIO} (Abnormal) Range: 10-20 EST GFR - AA 106 mL/min (Normal) Comments: GFR Calc EST GFR 88 mL/min (Normal) Comments: Non- GFR Calc CREAT,SERUM 0.73 mg/dL (Normal) Range: 0.55-1.02 Comments: The validity of the calculated GFR AND GFRAA in patients over70 years has not been determined. Clinical correlation isessential. BUN 17 mg/dL (Normal) Range: 7-18 GLU 168 mg/dL (Abnormal) Range: 70-110 Comments: Fasting Glucose result greater than or equal to 126 mg/dLsuggests DIABETES MELLITUS per A.D.A. criteria. 1-Yhh-864897:39 Hemoglobin A1c Comments: [facility] Fssxq[address]fiep[address] [facility] [place], [place], [address] HGB A1C 6.5 % (Abnormal) Range: 4.2-6.3 4-Tpa-468118:39 Lipid Profile Comments: [facility] Fsvyvpybbn4831 [facility] [place], [place], [address] VLDL 6 mg/dL (Normal) Range: 5-40 LDL 75 mg/dL (Normal) Range: 0-130 HDL 99 mg/dL (Normal) Comments: The drugs N-Acetylcysteine and Metamizole may falselydepress this assay. Reference Range HDL <40 mg/dL Low HDL Cholesterol HDL >or= 60 mg/dL High HDL Cholesterol TRIG 28 mg/dL (Normal) Comments: The drugs N-Acetylcysteine and Metamizole may falselydepress this assay.Serum Triglycerides Reference Interval Normal <150 mg/dL Borderline high 150 - 199 mg/dL High 200 - 499 mg/dL Very High > or = 500 mg/dL CHOL 180 mg/dL (Normal) Comments: <200 mg/dL Desirable 200-240 mg/dL Borderline >240 mg/dL High Risk 9-Mxk-807681:39 T4 Free Direct Comments: [facility] [address] [facility] [place], [place], [address] T4 FREE DIRECT 1.36 ng/dL (Normal) Range: 0.76-1.46 6-Bpy-515318:39 Thyroid Stim Hormone (TSH) Comments: [facility] [address] [place], [address] TSH 3.60 {uIU/mL} (Normal) Range: 0.358-3.74 :39 Vitamin B12 497 pg/mL (Normal) Comments: [facility] [address] [place], [address] Range: 211-911 6-Zrg-494587:39 Vitamin D,25 Hydroxy Comments: [facility] [address] [place], [address] Vitamin D 25-OH 58.6 ng/mL (Normal) Comments: Vitamin D 25(OH) Status Range Deficiency <20 ng/mL (50nmol/L) Insuffciency 20 - 30 ng/mL (50 - 75 nmol/L) Sufficiency 30 - 100 ng/mL (75 - 250 nmol/L) Toxicity >100 ng/mL (>250 nmol/L) :42 Microscopic Examination Comments: PATIENT NOT FASTINGPERFORMED BY: [place] [id number] Bacteria None seen (Normal) Mucus Threads Present (Normal) Crystal Type Calcium Oxalate (Normal) Crystals Present (Abnormal) Epithelial Cells (non renal) 0-10 {/hpf} (Normal) Range: 0 - 10 RBC 0-2 {/hpf} (Normal) Range: 0 - 2 WBC 0-5 {/hpf} (Normal) Range: 0 - 5 :42 T3, FREE (TRIDOTHYRONINE) (95704) Comments: PATIENT NOT FASTINGPERFORMED BY: [address] RF[place] [id number] Triiodothyronine,Free,Serum 2.4 pg/mL (Normal) Range: 2.0-4.4 :42 T4, FREE (THYROXINE) (02545) Comments: PATIENT NOT FASTINGPERFORMED BY: Cherrish6370 [employer] Medical Technologiesin [place] [id number] T4,Free(Direct) 1.70 ng/dL (Normal) Range: 0.82-1.77 :42 URINE VEE CULTURE-IDENTIFICATN Comments: PATIENT NOT FASTINGPERFORMED BY: 1[employer]bel [facility]Texas [facility] [id number] (28322) Result 1 PSMS (Abnormal) Comments: Pseudomonas tiurrongml688 Colonies/mL . S = Susceptible; I = Intermediate; R = Resistant P = Positive; N = Negative MICS are expressed in micrograms per mL Antibiotic RSLT#1 RSLT#2 RSLT#3 RSLT#4Amikacin SCefepime SCeftazidime SCiprofloxacin SGentamicin SImipenem SLevofloxacin SMeropenem SPiperacillin STica rcillin STobramycin S Urine Final report (Abnormal) Culture,Comprehensive :42 LDH (LD) (LACTATE DEHYDROGENASE) Comments: PATIENT NOT FASTINGPERFORMED BY: 1Rebel Kjjdcc8522 [facility] [id number] (85524) LDH 239 [iU]/L (Abnormal) Range: 119-226 :42 SED RATE ERYTHROCYTE (03944) Comments: PATIENT NOT FASTINGPERFORMED BY: 1Rebel CiviQ [facility] [id number] Sedimentation Rate-Westergren 2 mm/h (Normal) Range: 0-40 :42 C-REACTIVE PROTEIN (04239) Comments: PATIENT NOT FASTINGPERFORMED BY: 1Rebel Vthsok6427 [facility] [id number] C-Reactive Protein, Quant 2.1 mg/L (Normal) Range: 0.0-4.9 :42 URINALYSIS, W/ MICRO (07945) Comments: PATIENT NOT FASTINGPERFORMED BY: 1Rebel Wvswqy3471 [facility] [id number] Microscopic Examination See below: (Normal) Comments: Microscopic was indicated and was performed. Nitrite, Urine Negative (Normal) Urobilinogen,Semi-Qn 0.2 mg/dL (Normal) Range: 0.2-1.0 Bilirubin Negative (Normal) Occult Blood Negative (Normal) Ketones Negative (Normal) Glucose Negative (Normal) Protein Negative (Normal) WBC Esterase 2+ (Abnormal) Appearance Clear (Normal) Urine-Color Yellow (Normal) pH 6.5 (Normal) Range: 5.0-7.5 Specific Holly 1.022 (Normal) Range: 1.005-1.030 :42 TSH (33121) Comments: PATIENT NOT FASTINGPERFORMED BY: 1Rebel Alchil9090 [facility] [id number] TSH 3.290 {uIU/mL} (Normal) Range: 0.450-4.500 :42 CBC W/AUTO DIFF WBC Comments: PATIENT NOT FASTINGPERFORMED BY: 1Rebel Xsodac6874 [facility]Ad[facility] [id number] Information: SRC:NIDIA (60075) Immature Grans (Abs) 0.0 {x10E3/uL} (Normal) Range: 0.0-0.1 Immature Granulocytes 0 % (Normal) Baso (Absolute) 0.0 {x10E3/uL} (Normal) Range: 0.0-0.2 Eos (Absolute) 0.2 {x10E3/uL} (Normal) Range: 0.0-0.4 Monocytes(Absolute) 0.5 {x10E3/uL} (Normal) Range: 0.1-0.9 Lymphs (Absolute) 1.8 {x10E3/uL} (Normal) Range: 0.7-3.1 Neutrophils (Absolute) 2.1 {x10E3/uL} (Normal) Range: 1.4-7.0 Basos 1 % (Normal) Eos 5 % (Normal) Monocytes 11 % (Normal) Lymphs 38 % (Normal) Neutrophils 45 % (Normal) Platelets 156 {x10E3/uL} (Normal) Range: 150-379 RDW 13.4 % (Normal) Range: 12.3-15.4 MCHC 33.0 g/dL (Normal) Range: 31.5-35.7 MCH 31.4 pg (Normal) Range: 26.6-33.0 MCV 95 fL (Normal) Range: 79-97 Hematocrit 40.3 % (Normal) Range: 34.0-46.6 Hemoglobin 13.3 g/dL (Normal) Range: 11.1-15.9 RBC 4.23 {x10E6/uL} (Normal) Range: 3.77-5.28 WBC 4.7 {x10E3/uL} (Normal) Range: 3.4-10.8 72-Wre-872125:50 Alanine Aminotransferas (SGPT) Comments: [facility] [address] [place], [place], [address] ALT 25 U/L (Normal) Range: 12-78 25-Tvk-743716:50 AST(SGOT) Comments: [facility] [address] [place], [place], [address](199) AST 21 U/L (Normal) Range: 15-37 29-Hme-918769:50 Basic Metabolic Profile (BMP) Comments: [facility] [address] [place], [place], [address] GAP 8 (Normal) Range: 5-15 CO2 30.0 mmol/L (Normal) Range: 21.0-32.0 CL 102 mmol/L (Normal) Range: 98-107 K 4.4 mmol/L (Normal) Range: 3.5-5.1 NA 140 mmol/L (Normal) Range: 136-145 CA 8.9 mg/dL (Normal) Range: 8.5-10.1 BUN/CRE 22.0 {RATIO} (Abnormal) Range: 10-20 EST GFR - AA 114 mL/min (Normal) Comments: GFR Calc EST GFR 95 mL/min (Normal) Comments: Non- GFR Calc CREAT,SERUM 0.68 mg/dL (Normal) Range: 0.55-1.02 Comments: The validity of the calculated GFR AND GFRAA in patients over70 years has not been determined. Clinical correlation isessential. BUN 15 mg/dL (Normal) Range: 7-18 GLU 87 mg/dL (Normal) Range: 70-110 36-Oea-342774:50 Hemoglobin A1c Comments: [facility] [address] [place], [place], [address] HGB A1C 6.5 % (Abnormal) Range: 4.2-6.3 26-Zqn-364279:50 Lipid Profile Comments: [facility] [address]ol[address], [address] VLDL 7 mg/dL (Normal) Range: 5-40 LDL 50 mg/dL (Normal) Range: 0-130 HDL 94 mg/dL (Normal) Comments: The drugs N-Acetylcysteine and Metamizole may falsely deressthis assay. Reference Range HDL <40 mg/dL Low HDL Cholesterol HDL >or= 60 mg/dL High HDL Cholesterol TRIG 33 mg/dL (Normal) Comments: The drugs N-Acetylcysteine and Metamizole may falsely deressthis assay.Serum Triglycerides Reference Interval Normal <150 mg/dL Borderline high 150 - 199 mg/dL High 200 - 499 mg/dL Very High > or = 500 mg/dL CHOL 151 mg/dL (Normal) Comments: <200 mg/dL Desirable 200-240 mg/dL Borderline >240 mg/dL High Risk 65-Qxg-806357:50 T4 Free Direct Comments: [facility] [address], [address] T4 FREE DIRECT 1.39 ng/dL (Normal) Range: 0.76-1.46 67-Wfp-928464:50 Vitamin B12 513 pg/mL (Normal) Comments: [facility] [address]jd9[address], [address] Range: 211-911 56-Hnu-760836:50 Vitamin D,25 Hydroxy Comments: [facility] [address]ql[address] [place], [id number] Vitamin D 25-OH 65.2 ng/mL (Normal) Comments: Vitamin D 25(OH) Status Range Deficiency <20 ng/mL (50nmol/L) Insuffciency 20 - 30 ng/mL (50 - 75 nmol/L) Sufficiency 30 - 100 ng/mL (75 - 250 nmol/L) Toxicity >100 ng/mL (>250 nmol/L) 63-Age-368563:51 Rapid Flu (63493 x 2) Comments: negative Influenza A Ag neg (Normal) 02-Cpx-39306:59 THROAT CULTURE (04806) Comments: PATIENT NOT FASTINGPERFORMED BY: [facility] DoverNuqeyo6043 [facility] [id number] Information: SRC:TH Result 1 RRF (Normal) Comments: Routine respiratory maryam Upper Respiratory Culture Final report (Normal) 00-Hgi-816543:15 PROLACTIN (16608) Comments: PATIENT NOT FASTINGPERFORMED BY: [facility]Saint [facility] DoverTjildv1390 [facility] [id number] Prolactin 10.1 ng/mL (Normal) Range: 4.8-23.3 :40 Alanine Aminotransferas (SGPT) Comments: [facility] [address]qrn[address] [facility] [address] [place], [place], [address] ALT 23 U/L (Normal) Range: 12-78 :40 AST(SGOT) Comments: [facility] Swtzozwrfp2164 [facility] [place], [place], [address] AST 22 U/L (Normal) Range: 15-37 08-Oct-20168:40 Basic Metabolic Profile (BMP) Comments: [facility] [address]pximivb24[address] [facility] [address] [place], [place], [address] GAP 9 (Normal) Range: 5-15 CO2 29.0 mmol/L (Normal) Range: 21.0-32.0 CL 102 mmol/L (Normal) Range: 98-107 K 3.9 mmol/L (Normal) Range: 3.5-5.1 NA 140 mmol/L (Normal) Range: 136-145 CA 8.3 mg/dL (Abnormal) Range: 8.5-10.1 BUN/CRE 21.7 {RATIO} (Abnormal) Range: 10-20 EST GFR - AA 122 mL/min (Normal) Comments: GFR Calc EST GFR 101 mL/min (Normal) Comments: Non- GFR Calc CREAT,SERUM 0.65 mg/dL (Normal) Range: 0.55-1.02 Comments: The validity of the calculated GFR AND GFRAA in patients over70 years has not been determined. Clinical correlation isessential. BUN 14 mg/dL (Normal) Range: 7-18 GLU 170 mg/dL (Abnormal) Range: 70-110 Comments: Fasting Glucose result greater than or equal to 126 mg/dLsuggests DIABETES MELLITUS per A.D.A. criteria. :40 Hemoglobin A1c Comments: [facility] [address] [place], [id number] HGB A1C 6.6 % (Abnormal) Range: 4.2-6.3 :40 Lipid Profile Comments: [facility] [address] [place], [address] VLDL 7 mg/dL (Normal) Range: 5-40 LDL 61 mg/dL (Normal) Range: 0-130 HDL 93 mg/dL (Normal) Comments: The drugs N-Acetylcysteine and Metamizole may falsely deressthis assay. Reference Range HDL <40 mg/dL Low HDL Cholesterol HDL >or= 60 mg/dL High HDL Cholesterol TRIG 37 mg/dL (Normal) Comments: The drugs N-Acetylcysteine and Metamizole may falsely deressthis assay.Serum Triglycerides Reference Interval Normal <150 mg/dL Borderline high 150 - 199 mg/dL High 200 - 499 mg/dL Very High > or = 500 mg/dL CHOL 161 mg/dL (Normal) Comments: <200 mg/dL Desirable 200-240 mg/dL Borderline >240 mg/dL High Risk :40 Microalb:Creat Ratio,Random UR Comments: [facility] [address] [place], [address] MALB:CREAT 8.4 {mg/g_CRE} (Normal) MICROALBUMIN,UR 11.5 mg/L (Normal) UR CREAT 137.00 mg/dL (Normal) :40 T4 Free Direct Comments: [facility] [address] [place], [address] T4 FREE DIRECT 1.49 ng/dL (Abnormal) Range: 0.76-1.46 :40 Thyroid Stim Hormone (TSH) Comments: [facility] [address] [place], [id number] TSH 1.79 {uIU/mL} (Normal) Range: 0.358-3.74 :40 Vitamin B12 624 pg/mL (Normal) Comments: [facility] [address] [place], [address] Range: 211-911 :40 Vitamin D,25 Hydroxy Comments: [facility] [address] [place], [address] Vitamin D 25-OH 55.6 ng/mL (Normal) Comments: Vitamin D 25(OH) Status Range Deficiency <20 ng/mL (50nmol/L) Insuffciency 20 - 30 ng/mL (50 - 75 nmol/L) Sufficiency 30 - 100 ng/mL (75 - 250 nmol/L) Toxicity >100 ng/mL (>250 nmol/L) :40 Alanine Aminotransferas (SGPT) Comments: [facility] [address] [place], [address] ALT 24 U/L (Normal) Range: 12-78 :40 AST(SGOT) Comments: [facility] [address] [place], [address] AST 21 U/L (Normal) Range: 15-37 :40 Basic Metabolic Profile (BMP) Comments: [facility] [address]rgasxxv[address] [place], [address] GAP 9 (Normal) Range: 5-15 CO2 29.0 mmol/L (Normal) Range: 21.0-32.0 CL 101 mmol/L (Normal) Range: 98-107 K 4.0 mmol/L (Normal) Range: 3.5-5.1 NA 139 mmol/L (Normal) Range: 136-145 CA 8.8 mg/dL (Normal) Range: 8.5-10.1 BUN/CRE 21.6 {RATIO} (Abnormal) Range: 10-20 EST GFR - AA 104 mL/min (Normal) Comments: GFR Calc EST GFR 86 mL/min (Normal) Comments: Non- GFR Calc CREAT,SERUM 0.74 mg/dL (Normal) Range: 0.55-1.02 Comments: The validity of the calculated GFR AND GFRAA in patients over70 years has not been determined. Clinical correlation isessential. BUN 16 mg/dL (Normal) Range: 7-18 GLU 131 mg/dL (Abnormal) Range: 70-110 Comments: Fasting Glucose result greater than or equal to 126 mg/dLsuggests DIABETES MELLITUS per A.D.A. criteria. :40 Hemoglobin A1c Comments: [facility] [address] [place], [place], [id number] HGB A1C 6.5 % (Abnormal) Range: 4.2-6.3 :40 Lipid Profile Comments: [facility] [address] [place], [address] VLDL 5 mg/dL (Normal) Range: 5-40 LDL 84 mg/dL (Normal) Range: 0-130 HDL 95 mg/dL (Normal) Comments: The drugs N-Acetylcysteine and Metamizole may falsely deressthis assay. Reference Range HDL <40 mg/dL Low HDL Cholesterol HDL >or= 60 mg/dL High HDL Cholesterol TRIG 26 mg/dL (Normal) Comments: The drugs N-Acetylcysteine and Metamizole may falsely deressthis assay.Serum Triglycerides Reference Interval Normal <150 mg/dL Borderline high 150 - 199 mg/dL High 200 - 499 mg/dL Very High > or = 500 mg/dL CHOL 184 mg/dL (Normal) Comments: <200 mg/dL Desirable 200-240 mg/dL Borderline >240 mg/dL High Risk :40 Microalbumin,Random Urine Comments: [facility] [address] [place], [place], [id number] MICROALBUMIN,UR 13.4 mg/L (Normal) :40 T4 Free Direct Comments: [facility] [address] [place], [place], [id number] T4 FREE DIRECT 1.55 ng/dL (Abnormal) Range: 0.76-1.46 :40 Thyroid Stim Hormone (TSH) Comments: [facility] [address] [place], [address] TSH 1.40 {uIU/mL} (Normal) Range: 0.358-3.74 :40 Vitamin B12 720 pg/mL (Normal) Comments: [facility] [address], [address] Range: 211-911 :40 Vitamin D,25 Hydroxy Comments: [facility] [address]zt[address] [place], [address] Vitamin D 25-OH 55.5 ng/mL (Normal) Comments: Vitamin D 25(OH) Status Range Deficiency <20 ng/mL (50nmol/L) Insuffciency 20 - 30 ng/mL (50 - 75 nmol/L) Sufficiency 30 - 100 ng/mL (75 - 250 nmol/L) Toxicity >100 ng/mL (>250 nmol/L) :08 Comprehensive Comments: DR KHANNA ORDERED LIPID/CMP/TSHH CHASIDY ORDERED A1C/AST/ALT/LIPID/BMP/TSH/T4F/B12/[facility] [address]kdqsvcin74[address] [place], [address] Metabolic Profil GAP 5 (Normal) Range: 5-15 CO2 33.0 mmol/L (Abnormal) Range: 21.0-32.0 CL 102 mmol/L (Normal) Range: 98-107 K 3.5 mmol/L (Normal) Range: 3.5-5.1 NA 140 mmol/L (Normal) Range: 136-145 T BILI 0.90 mg/dL (Normal) Range: 0.20-1.00 ALT 25 U/L (Normal) Range: 12-78 ALK P 108 U/L (Normal) Range: 50-136 AST 19 U/L (Normal) Range: 15-37 CA 8.8 mg/dL (Normal) Range: 8.5-10.1 A/G 1.3 {RATIO} (Normal) Range: 0.9-2.4 GLOB 2.9 g/dL (Normal) Range: 2.3-3.5 ALB 3.8 g/dL (Normal) Range: 3.4-5.0 T PROT 6.7 g/dL (Normal) Range: 6.4-8.2 BUN/CRE 15.4 {RATIO} (Normal) Range: 10-20 EST GFR - AA 109 mL/min (Normal) Comments: GFR Calc EST GFR 90 mL/min (Normal) Comments: Non- GFR Calc CREAT,SERUM 0.71 mg/dL (Normal) Range: 0.55-1.20 Comments: The validity of the calculated GFR AND GFRAA in patients over70 years has not been determined. Clinical correlation isessential. BUN 11 mg/dL (Normal) Range: 7-18 GLU 43 mg/dL (Abnormal) Range: 70-110 Comments: Critical Result(s) Called at: 11:34:57 04/05/2016 by:Yanet Carty to MLongGlucose result less than 50 mg/dL suggests HYPOGLYCEMIA. :08 Hemoglobin A1c Comments: DR KHANNA ORDERED LIPID/CMP/TOVA GUERRA ORDERED A1C/AST/ALT/LIPID/BMP/TSH/T4F/B12/[facility] [id number] [place], [place], [id number] HGB A1C 6.5 % (Abnormal) Range: 4.2-6.3 :08 Lipid Profile Comments: DR KHANNA ORDERED LIPID/CMP/TOVA GUERRA ORDERED A1C/AST/ALT/LIPID/BMP/TSH/T4F/B12/[facility] [id number] [place], [place], [id number] VLDL 8 mg/dL (Normal) Range: 5-40 LDL 65 mg/dL (Normal) Range: 0-130 HDL 75 mg/dL (Normal) Comments: The drugs N-Acetylcysteine and Metamizole may falsely deressthis assay. Reference Range HDL <40 mg/dL Low HDL Cholesterol HDL >or= 60 mg/dL High HDL Cholesterol TRIG 41 mg/dL (Normal) Comments: The drugs N-Acetylcysteine and Metamizole may falsely deressthis assay.Serum Triglycerides Reference Interval Normal <150 mg/dL Borderline high 150 - 199 mg/dL High 200 - 499 mg/dL Very High > or = 500 mg/dL CHOL 148 mg/dL (Normal) Comments: <200 mg/dL Desirable 200-240 mg/dL Borderline >240 mg/dL High Risk :08 T4 Free Direct Comments: DR KHANNA ORDERED LIPID/CMP/[facility] ORDERED A1C/AST/ALT/LIPID/BMP/TSH/T4F/[facility] [address], [address] T4 FREE DIRECT 1.67 ng/dL (Abnormal) Range: 0.76-1.46 :08 Thyroid Stim Comments: DR KHANNA ORDERED LIPID/CMP/[facility] ORDERED A1C/AST/ALT/LIPID/BMP/TSH/T4F/B12/[facility] [address] [place], [address] Hormone (TSH) TSH 0.43 {uIU/mL} (Normal) Range: 0.358-3.74 :08 Vitamin B12 622 pg/mL (Normal) Comments: DR KHANNA ORDERED LIPID/CMP/[facility]SH[facility] ORDERED A1C/AST/ALT/LIPID/BMP/TSH/T4F/B12/[facility] [address] [place], [address] Range: 211-911 :08 Vitamin D,25 Comments: DR KHANNA [facility] ORDERED A1C/AST/ALT/LIPID/BMP/TSH/T4F/B12/[facility] [address]xfahk[address] [place], [address] Hydroxy Vitamin D 25-OH 52.9 ng/mL (Normal) Comments: Vitamin D 25(OH) Status Range Deficiency <20 ng/mL (50nmol/L) Insuffciency 20 - 30 ng/mL (50 - 75 nmol/L) Sufficiency 30 - 100 ng/mL (75 - 250 nmol/L) Toxicity >100 ng/mL (>250 nmol/L) :20 CBC W/Diff, Automated Comments: [facility] [address], [address] Absolute Lymph 1.13 {X10_3/ul} (Normal) Range: 0.83-4.51 Absolute Neut 1.6 {X10_3/uL} (Abnormal) Range: 2.0-7.7 IM GRAN % 0.300 % (Normal) Range: 0.0-0.9 Comments: IG% - Immature Granulocytes (promyelocytes, myelocytes andmetamyelocytes) > 1% indicates that a LEFT SHIFT is Present. BASO% 0.3 % (Normal) Range: 0-1 EO% 5.2 % (Abnormal) Range: 0-5 MONO% 9.3 % (Normal) Range: 0-10 LY% 34.9 % (Normal) Range: 19-41 NEUT% 50.0 % (Normal) Range: 47-70 MPV 10.8 fL (Normal) Range: 6.2-12.0 PLT 151 K/mm3 (Normal) Range: 150-450 RDW SD 43.7 fL (Normal) Range: 35.1-43.9 RDW CV 13.2 % (Normal) Range: 11.6-14.6 MCHC 33.0 {g/gl} (Normal) Range: 32-36 MCH 31.2 pg (Normal) Range: 27.0-32.0 MCV 94.6 fL (Normal) Range: 81-99 HCT 40.6 % (Normal) Range: 37-47 HGB 13.4 g/dL (Normal) Range: 12.0-15.0 RBC 4.29 {M/mm3} (Normal) Range: 4.2-5.4 WBC 3.2 K/mm3 (Abnormal) Range: 4.4-11.0 67-Saf-52497:20 Comprehensive Metabolic Profil Comments: A1C TSH AST ALT BMP LIPID MIACRE VITD B12DR.OLIVRE CRP CBCD CMP [facility] [address] [place], [place], [id number] GAP 6 (Normal) Range: 5-15 CO2 30.0 mmol/L (Normal) Range: 21.0-32.0 CL 105 mmol/L (Normal) Range: 98-107 K 3.8 mmol/L (Normal) Range: 3.5-5.1 NA 141 mmol/L (Normal) Range: 136-145 T BILI 0.70 mg/dL (Normal) Range: 0.20-1.00 ALT 27 U/L (Normal) Range: 12-78 ALK P 92 U/L (Normal) Range: 50-136 AST 22 U/L (Normal) Range: 15-37 CA 8.6 mg/dL (Normal) Range: 8.5-10.1 A/G 1.2 {RATIO} (Normal) Range: 0.9-2.4 GLOB 3.1 g/dL (Normal) Range: 2.3-3.5 ALB 3.7 g/dL (Normal) Range: 3.4-5.0 T PROT 6.8 g/dL (Normal) Range: 6.4-8.2 BUN/CRE 20.7 {RATIO} (Abnormal) Range: 10-20 EST GFR - AA 126 mL/min (Normal) Comments: GFR Calc EST GFR 104 mL/min (Normal) Comments: Non- GFR Calc CREAT,SERUM 0.63 mg/dL (Normal) Range: 0.55-1.20 Comments: The validity of the calculated GFR AND GFRAA in patients over70 years has not been determined. Clinical correlation isessential. BUN 13 mg/dL (Normal) Range: 7-18 GLU 83 mg/dL (Normal) Range: 70-110 :20 CRP Comments: A1C TSH AST ALT BMP LIPID MIACRE VITD B12DR.OLIVER CRP CBCD CMP [facility] [address] [place], [place], [id number] C-REACTIVE PROT < 2.90 mg/L (Normal) Range: 0.0-3.0 Comments: C-Reactive Protein (CRP) provides useful information for thediagnosis, therapy and monitoring of inflammatory processesand associated diseases. For the evaluation of Relative Riskfor Cardiovascular Dise ase, a High Sensitivity CRP (HSCRP)should be ordered. :20 Erythrocyte Sed Rate Comments: [facility] [address] [place], [place], [id number] SED RATE 2 mm/h (Normal) Range: 0-30 :20 Hemoglobin A1c Comments: [facility] [address] [place], [id number] HGB A1C 6.3 % (Normal) Range: 4.2-6.3 :20 Lipid Profile Comments: A1C TSH AST ALT BMP LIPID MIACRE VITD B12DR.OLIVER CRP CBCD [facility] [address] [place], [address] VLDL 7 mg/dL (Normal) Range: 5-40 LDL 74 mg/dL (Normal) Range: 0-130 HDL 83 mg/dL (Normal) Comments: Reference Range HDL <40 mg/dL Low HDL Cholesterol HDL >or= 60 mg/dL High HDL Cholesterol TRIG 36 mg/dL (Normal) Comments: Serum Triglycerides Reference Interval Normal <150 mg/dL Borderline high 150 - 199 mg/dL High 200 - 499 mg/dL Very High > or = 500 mg/dL CHOL 164 mg/dL (Normal) Comments: <200 mg/dL Desirable 200-240 mg/dL Borderline >240 mg/dL High Risk :20 Microalb:Creat Ratio,Random UR Comments: [facility] [address] [place], [address] MALB:CREAT 6.4 {mg/g_CRE} (Normal) MICROALBUMIN,UR 10.0 mg/L (Normal) UR CREAT 157.00 mg/dL (Normal) :20 Thyroid Stim Hormone (TSH) Comments: A1C TSH AST ALT BMP LIPID MIACRE VITD B12DR.OLIVER CRP CBCD [facility] [address] [place], [address] TSH 0.54 {uIU/mL} (Normal) Range: 0.358-3.74 :20 Vitamin B12 391 pg/mL (Normal) Comments: [facility] [address] [place], [address] Range: 211-911 :20 Vitamin D,25 Hydroxy Comments: [facility] [address] [place], [id number] Vitamin D 25-OH 55.1 ng/mL (Normal) Comments: Vitamin D 25(OH) Status Range Deficiency <20 ng/mL (50nmol/L) Insuffciency 20 - 30 ng/mL (50 - 75 nmol/L) Sufficiency 30 - 100 ng/mL (75 - 250 nmol/L) Toxicity >100 ng/mL (>250 nmol/L) [id number]-Lfu-[id number]:47 Rapid Flu (86039 x 2) Influenza A Ag negative a and b (Normal) :22 Alanine Aminotransferas (SGPT) Comments: [facility] [address] [place], [address] ALT 29 U/L (Normal) Range: 12-78 :22 AST(SGOT) Comments: [facility] [address] [place], [address] AST 21 U/L (Normal) Range: 15-37 :22 Basic Metabolic Profile (BMP) Comments: [facility] [address] [place], [address] GAP 6 (Normal) Range: 5-15 CO2 29.0 mmol/L (Normal) Range: 21.0-32.0 CL 107 mmol/L (Normal) Range: 98-107 K 3.8 mmol/L (Normal) Range: 3.5-5.1 NA 142 mmol/L (Normal) Range: 136-145 CA 8.5 mg/dL (Normal) Range: 8.5-10.1 BUN/CRE 16.1 {RATIO} (Normal) Range: 10-20 EST GFR - AA 115 mL/min (Normal) Comments: GFR Calc EST GFR 95 mL/min (Normal) Comments: Non- GFR Calc CREAT,SERUM 0.68 mg/dL (Normal) Range: 0.55-1.20 Comments: The validity of the calculated GFR AND GFRAA in patients over70 years has not been determined. Clinical correlation isessential. BUN 11 mg/dL (Normal) Range: 7-18 GLU 61 mg/dL (Abnormal) Range: 70-110 :22 Hemoglobin A1c Comments: [facility] [address] [place], [address] ; non-emergent till apt and ordered by another dr HGB A1C 6.4 % (Abnormal) Range: 4.2-6.3 :22 Lipid Profile Comments: [facility] [address] [place], [address] VLDL 7 mg/dL (Normal) Range: 5-40 LDL 89 mg/dL (Normal) Range: 0-130 HDL 85 mg/dL (Normal) Comments: Reference Range HDL <40 mg/dL Low HDL Cholesterol HDL >or= 60 mg/dL High HDL Cholesterol TRIG 35 mg/dL (Normal) Comments: Serum Triglycerides Reference Interval Normal <150 mg/dL Borderline high 150 - 199 mg/dL High 200 - 499 mg/dL Very High > or = 500 mg/dL CHOL 181 mg/dL (Normal) Comments: <200 mg/dL Desirable 200-240 mg/dL Borderline >240 mg/dL High Risk :22 Microalb:Creat Ratio,Random UR Comments: [facility] [address] [place], [address] MALB:CREAT 10.6 {mg/g_CRE} (Normal) MICROALBUMIN,UR 8.2 mg/L (Normal) UR CREAT 77.60 mg/dL (Normal) :22 Thyroid Stim Hormone (TSH) Comments: [facility] [address] [place], [address] TSH 0.88 {uIU/mL} (Normal) Range: 0.358-3.74 :22 Vitamin B12 470 pg/mL (Normal) Comments: [facility] [address] [place], [address] Range: 211-911 :22 Vitamin D,25 Hydroxy Comments: [facility] [address] [place], [address] Vitamin D 25-OH 50.9 ng/mL (Normal) Comments: Vitamin D 25(OH) Status Range Deficiency <20 ng/mL (50nmol/L) Insuffciency 20 - 30 ng/mL (50 - 75 nmol/L) Sufficiency 30 - 100 ng/mL (75 - 250 nmol/L) Toxicity >100 ng/mL (>250 nmol/L) :46 Alanine Aminotransferas (SGPT) Comments: [facility] [address] [place], [address] ALT 30 U/L (Normal) Range: 12-78 :46 AST(SGOT) Comments: [facility] [address] [place], [address] AST 26 U/L (Normal) Range: 15-37 :46 Basic Metabolic Profile (BMP) Comments: [facility] [address] [place], [place], [id number] GAP 7 (Normal) Range: 5-15 CO2 31.0 mmol/L (Normal) Range: 21.0-32.0 CL 100 mmol/L (Normal) Range: 98-107 K 4.2 mmol/L (Normal) Range: 3.5-5.1 NA 138 mmol/L (Normal) Range: 136-145 CA 9.3 mg/dL (Normal) Range: 8.5-10.1 BUN/CRE 23.1 {RATIO} (Abnormal) Range: 10-20 EST GFR - AA 88 mL/min (Normal) Comments: GFR Calc EST GFR 72 mL/min (Normal) Comments: Non- GFR Calc CREAT,SERUM 0.86 mg/dL (Normal) Range: 0.55-1.20 Comments: The validity of the calculated GFR AND GFRAA in patients over70 years has not been determined. Clinical correlation isessential. BUN 20 mg/dL (Abnormal) Range: 7-18 GLU 99 mg/dL (Normal) Range: 70-110 :46 Hemoglobin A1c Comments: [facility] [address] [place], [place], [id number] HGB A1C 6.8 % (Abnormal) Range: 4.2-6.3 :46 Lipid Profile Comments: [facility] [address] [place], [address] VLDL 6 mg/dL (Normal) Range: 5-40 LDL 112 mg/dL (Normal) Range: 0-130 HDL 85 mg/dL (Normal) Comments: Reference Range HDL <40 mg/dL Low HDL Cholesterol HDL >or= 60 mg/dL High HDL Cholesterol TRIG 32 mg/dL (Normal) Comments: Serum Triglycerides Reference Interval Normal <150 mg/dL Borderline high 150 - 199 mg/dL High 200 - 499 mg/dL Very High > or = 500 mg/dL CHOL 203 mg/dL (Abnormal) Comments: <200 mg/dL Desirable 200-240 mg/dL Borderline >240 mg/dL High Risk :46 Thyroid Stim Hormone (TSH) Comments: [facility] [address] [place], [address] TSH 1.82 {uIU/mL} (Normal) Range: 0.358-3.74 :46 Vitamin B12 423 pg/mL (Normal) Comments: [facility] [address], [address] Range: 211-911 :46 Vitamin D,25 Hydroxy Comments: [facility] [address] [place], [address] Vitamin D 25-OH 83.9 ng/mL (Normal) Comments: Vitamin D 25(OH) Status Range Deficiency <20 ng/mL (50nmol/L) Insuffciency 20 - 30 ng/mL (50 - 75 nmol/L) Sufficiency 30 - 100 ng/mL (75 - 250 nmol/L) Toxicity >100 ng/mL (>250 nmol/L) :14 Alanine Aminotransferas (SGPT) Comments: Test performed at:[facility] [address] [place] [address] ALT 26 U/L (Normal) Range: 12-78 :14 AST(SGOT) Comments: Test performed at:[facility] [address] [place] [address] AST 20 U/L (Normal) Range: 15-37 :14 Basic Metabolic Profile (BMP) Comments: Test performed at:[facility] [address] [place] [address] GAP 12 (Normal) Range: 5-15 CO2 27.0 mmol/L (Normal) Range: 21.0-32.0 CL 100 mmol/L (Normal) Range: 98-107 K 3.9 mmol/L (Normal) Range: 3.5-5.1 NA 139 mmol/L (Normal) Range: 136-145 CA 9.2 mg/dL (Normal) Range: 8.5-10.1 BUN/CRE 21.9 {RATIO} (Abnormal) Range: 10-20 EST GFR - AA 107 mL/min (Normal) EST GFR 88 mL/min (Normal) CREAT,SERUM 0.73 mg/dL (Normal) Range: 0.55-1.20 Comments: Please note revised CREATININE reference range wurddgkjb04/22/2015. BUN 16 mg/dL (Normal) Range: 7-18 GLU 138 mg/dL (Abnormal) Range: 70-110 Comments: Fasting Glucose result greater than or equal to 126 mg/dLsuggests DIABETES MELLITUS per A.D.A. criteria. :14 Hemoglobin A1c Comments: Test performed at:[facility] [address] [place] [address] HGB A1C 6.6 % (Abnormal) Range: 4.2-6.3 :14 Lipid Profile Comments: Test performed at:[facility] [address] [place] [address] VLDL 6 mg/dL (Normal) Range: 5-40 LDL 88 mg/dL (Normal) Range: 0-130 HDL 81 mg/dL (Normal) Comments: Reference Range HDL <40 mg/dL Low HDL Cholesterol HDL >or= 60 mg/dL High HDL Cholesterol TRIG 29 mg/dL (Normal) Comments: Serum Triglycerides Reference Interval Normal <150 mg/dL Borderline high 150 - 199 mg/dL High 200 - 499 mg/dL Very High > or = 500 mg/dL CHOL 175 mg/dL (Normal) Comments: <200 mg/dL Desirable 200-240 mg/dL Borderline >240 mg/dL High Risk :14 Thyroid Stim Hormone (TSH) Comments: Test performed at:[facility] [address]fezbwmcqq50[address] [facility] [place] [address] TSH 1.65 {uIU/mL} (Normal) Range: 0.358-3.74 10-Mar-20159:14 Vitamin B12 358 pg/mL (Normal) Comments: Test performed at:[facility] [address] [place] [address] Range: 211-911 :14 Vitamin D,25 Hydroxy Comments: Test performed at:[facility] [address] [place] [id number] Vitamin D 25-OH 50.8 ng/mL (Normal) Comments: Vitamin D 25(OH) Status Range Deficiency <20 ng/mL (50nmol/L) Insuffciency 20 - 30 ng/mL (50 - 75 nmol/L) Sufficiency 30 - 100 ng/mL (75 - 250 nmol/L) Toxicity >100 ng/mL (>250 nmol/L) :33 Microalbumin,Random Urine Comments: Test performed at:[facility] [address] [place] [address] MICROALBUMIN,UR 10.1 mg/L (Normal) 71-Doe-32317:29 Alanine Aminotransferas (SGPT) Comments: Test performed at:[facility] Nczpqiaxdt5884 [facility] [place] [address]( ALT 26 U/L (Normal) Range: 12-78 :29 AST(SGOT) Comments: Test performed at:[facility] [address] [place] [address] AST 21 U/L (Normal) Range: 15-37 28-Dro-88228:29 Basic Metabolic Profile (BMP) Comments: Test performed at:[facility] [address] [place] [address] GAP 7 (Normal) Range: 5-15 CO2 29.0 mmol/L (Normal) Range: 21.0-32.0 CL 101 mmol/L (Normal) Range: 98-107 K 3.7 mmol/L (Normal) Range: 3.5-5.1 NA 137 mmol/L (Normal) Range: 136-145 CA 8.9 mg/dL (Normal) Range: 8.5-10.1 BUN/CRE 28.3 {RATIO} (Abnormal) Range: 10-20 EST GFR - AA 133 mL/min (Normal) EST GFR 110 mL/min (Normal) CREAT,SERUM 0.6 mg/dL (Normal) Range: 0.6-1.0 BUN 17 mg/dL (Normal) Range: 7-18 GLU 38 mg/dL (Abnormal) Range: 70-110 Comments: Glucose result less than 50 mg/dL suggests HYPOGLYCEMIA.RESULTS CALLED TO MADI KRISHNAMURTHY 11/29/14 Hanna Swartz. 79-Lqk-15755:29 Hemoglobin A1c Comments: Test performed at:[facility] [address] [place] [address] HGB A1C 6.4 % (Abnormal) Range: 4.2-6.3 :29 Lipid Profile Comments: Test performed at:[facility] [address] [place] [address] VLDL 4 mg/dL (Abnormal) Range: 5-40 LDL 79 mg/dL (Normal) Range: 0-130 HDL 76 mg/dL (Normal) Comments: Reference Range HDL <40 mg/dL Low HDL Cholesterol HDL >or= 60 mg/dL High HDL Cholesterol TRIG 21 mg/dL (Normal) Range: 0-199 Comments: Serum Triglycerides Reference Interval Normal <150 mg/dL Borderline high 150 - 199 mg/dL High 200 - 499 mg/dL Very High > or = 500 mg/dL CHOL 159 mg/dL (Normal) Comments: <200 mg/dL Desirable 200-240 mg/dL Borderline >240 mg/dL High Risk :29 Thyroid Stim Hormone (TSH) Comments: Test performed at:[facility] [address] [place] [address] TSH 2.02 {uIU/mL} (Normal) Range: 0.358-3.74 :29 Vitamin B12 392 pg/mL (Normal) Comments: Test performed at:[facility] [address] [place] [address] Range: 211-911 :29 Vitamin D,25 Hydroxy Comments: Test performed at:[facility] [address] [place] [address] Vitamin D 25-OH 38.5 ng/mL (Normal) Comments: Vitamin D 25(OH) Status Range Deficiency <20 ng/mL (50nmol/L) Insuffciency 20 - 30 ng/mL (50 - 75 nmol/L) Sufficiency 30 - 100 ng/mL (75 - 250 nmol/L) Toxicity >100 ng/mL (>250 nmol/L) 1-Eqr-480950:15 Protein Electro, Random Urine Comments: PERFORMED BY: [facility] [id number] Please note: SPRCS (Normal) Comments: Protein electrophoresis scan will follow via computer, mail, orcourier delivery. M-Denis, % Not Observed % (Normal) Gamma Globulin, U 27.0 % (Normal) Beta Globulin, U 46.8 % (Normal) Bugcz-3-Mywtylxk, U 10.6 % (Normal) Ccqgc-3-Wzklomxn, U 0.0 % (Normal) Albumin, U 15.7 % (Normal) Protein,Total,Urine 9.0 mg/dL (Normal) Range: 0.0-15.0 4-Hay-187527:15 Protein Electro.,S Comments: PERFORMED BY: [employer] [place] [id number] Please note: SPRCS (Normal) Comments: Protein electrophoresis scan will follow via computer, mail, orcourier delivery. A/G Ratio 1.8 (Normal) Range: 0.7-2.0 Globulin, Total 2.0 g/dL (Normal) Range: 2.0-4.5 M-Denis Not Observed g/dL (Normal) Gamma Globulin 0.5 g/dL (Normal) Range: 0.5-1.6 Beta Globulin 0.7 g/dL (Normal) Range: 0.6-1.3 Yjedb-0-Sratdfbv 0.6 g/dL (Normal) Range: 0.4-1.2 Dmnpc-2-Aifgmmgt 0.2 g/dL (Normal) Range: 0.1-0.4 Albumin 3.7 g/dL (Normal) Range: 3.2-5.6 Protein, Total, Serum 5.7 g/dL (Abnormal) Range: 6.0-8.5 0-Ypr-240946:15 PARATHORMONE (71208) Comments: PERFORMED BY: [employer] [place] [id number] PTH, Intact 17 pg/mL (Normal) Range: 15-65 4-Vep-821602:15 PHOSPHORUS (17421) Comments: PERFORMED BY: [employer] [place] [id number] Phosphorus, Serum 3.0 mg/dL (Normal) Range: 2.5-4.5 9-Shr-408070:50 URINE CALCIUM DIMITRY TIMED Comments: PATIENT NOT FASTINGPERFORMED BY: [facility] [id number] Information: [id number] START 10/06/14@930AM FINISH; non-emergent till apt 24 Hour (85527) Calcium, Urine 24hr 190.0 {mg/24_hr} (Normal) Range: 100.0-300.0 Calcium, Urine 19.0 mg/dL (Normal) :41 Alanine Aminotransferas (SGPT) Comments: Test performed at:[facility] [address] [facility] [place] [address] ALT 30 U/L (Normal) Range: 12-78 :41 AST(SGOT) Comments: Test performed at:[facility] [address] [facility] [place] [address]) AST 19 U/L (Normal) Range: 15-37 :41 Basic Metabolic Profile (BMP) Comments: Test performed at:[facility] [address] [place] [address] ; non-emergent till apt next week GAP 7 (Normal) Range: 5-15 CO2 29.0 mmol/L (Normal) Range: 21.0-32.0 CL 100 mmol/L (Normal) Range: 98-107 K 3.7 mmol/L (Normal) Range: 3.5-5.1 NA 136 mmol/L (Normal) Range: 136-145 CA 8.9 mg/dL (Normal) Range: 8.5-10.1 BUN/CRE 13.8 {RATIO} (Normal) Range: 10-20 EST GFR - AA 96 mL/min (Normal) EST GFR 79 mL/min (Normal) CREAT,SERUM 0.8 mg/dL (Normal) Range: 0.6-1.0 BUN 11 mg/dL (Normal) Range: 7-18 GLU 148 mg/dL (Abnormal) Range: 70-110 Comments: Fasting Glucose result greater than or equal to 126 mg/dLsuggests DIABETES MELLITUS per A.D.A. criteria. :41 Hemoglobin A1c Comments: Test performed at:[facility] [address] [place] [address] HGB A1C 6.8 % (Abnormal) Range: 4.2-6.3 Comments: ADDENDA: non-emergent till apt :41 Lipid Profile Comments: Test performed at:[facility] [address] [place] [address] VLDL 7 mg/dL (Normal) Range: 5-40 LDL 63 mg/dL (Normal) Range: 0-130 HDL 79 mg/dL (Normal) Comments: Reference Range HDL <40 mg/dL Low HDL Cholesterol HDL >or= 60 mg/dL High HDL Cholesterol TRIG 37 mg/dL (Normal) Range: 0-199 Comments: Serum Triglycerides Reference Interval Normal <150 mg/dL Borderline high 150 - 199 mg/dL High 200 - 499 mg/dL Very High > or = 500 mg/dL CHOL 149 mg/dL (Normal) Comments: <200 mg/dL Desirable 200-240 mg/dL Borderline >240 mg/dL High Risk :41 Microalbumin,Random Urine Comments: Test performed at:[facility] [address] [place] [address] MICROALBUMIN,UR 15.3 mg/L (Normal) :41 Thyroid Stim Hormone (TSH) Comments: Test performed at:[facility] [address] [place] [address] TSH 1.22 {uIU/mL} (Normal) Range: 0.358-3.74 :41 Vitamin B12 415 pg/mL (Normal) Comments: Test performed at:[facility] [address] [place] [id number] Range: 211-911 :41 Vitamin D,25 Hydroxy Comments: Test performed at:[facility] [address] [place] [id number] ; will review at 09/16 appt Vitamin D 25-OH 41.4 ng/mL (Normal) Comments: Vitamin D 25(OH) Status Range Deficiency <20 ng/mL (50nmol/L) Insuffciency 20 - 30 ng/mL (50 - 75 nmol/L) Sufficiency 30 - 100 ng/mL (75 - 250 nmol/L) Toxicity >100 ng/mL (>250 nmol/L) :11 Rapid Flu (73612 x 2) Influenza A Ag neg (Normal) :11 Rapid Strep Test, Office (25063) Rapid Strep Test, Office Negative (Normal) :52 A1C 6.9 % (Abnormal) Range: 4.2-6.3 :52 ALT 29 U/L (Normal) Comments: Has Patient had X-rays with Contrast this admission? NIs Patient on Heparin? N Range: 12-78 :52 AST 23 U/L (Normal) Comments: Has Patient had X-rays with Contrast this admission? NIs Patient on Heparin? N Range: 15-37 :52 B12 460 pg/mL (Normal) Range: 211-911 :52 BMP Comments: Has Patient had X-rays with Contrast this admission? NIs Patient on Heparin? N GAP 6 (Normal) Range: 5-15 CO2 31.0 mmol/L (Normal) Range: 21.0-32.0 CL 105 mmol/L (Normal) Range: 98-107 K 4.1 mmol/L (Normal) Range: 3.5-5.1 NA 142 mmol/L (Normal) Range: 136-145 CA 9.4 mg/dL (Normal) Range: 8.5-10.1 BC 17.1 {RATIO} (Normal) Range: 10-20 GFRAA 113 mL/min (Normal) GFR 93 mL/min (Normal) CREAT 0.7 mg/dL (Normal) Range: 0.6-1.0 BUN 12 mg/dL (Normal) Range: 7-18 GLU 62 mg/dL (Abnormal) Range: 70-110 :52 LIPID Comments: Has Patient had X-rays with Contrast this admission? NIs Patient on Heparin? N VLDL 4 mg/dL (Abnormal) Range: 5-40 LDL 82 mg/dL (Normal) Range: 0-130 HDL 73 mg/dL (Normal) Comments: Reference RangeHDL <40 mg/dL Low HDL CholesterolHDL >or= 60 mg/dL High HDL Cholesterol TRIG 22 mg/dL (Normal) Range: 0-199 Comments: Serum Triglycerides Reference IntervalNormal <150 mg/dLBorderline high 150 - 199 mg/dLHigh 200 - 499 mg/ dLVery High > or = 500 mg/dL CHOL 159 mg/dL (Normal) Comments: <200 mg/dL Vdxfsklij712-524 mg/dL Borderline>240 mg/dL High Risk :52 MIALB 9.1 mg/L (Normal) :52 T4F 1.38 ng/dL (Normal) Comments: Has Patient had X-rays with Contrast this admission? NIs Patient on Heparin? N Range: 0.76-1.46 :52 TSH 0.71 {uIU/mL} (Normal) Comments: Has Patient had X-rays with Contrast this admission? NIs Patient on Heparin? N Range: 0.358-3.74 :35 A1C 6.5 % (Abnormal) Range: 4.2-6.3 :35 ALT 30 U/L (Normal) Range: 12-78 :35 AST 25 U/L (Normal) Range: 15-37 :35 B12 427 pg/mL (Normal) Range: 211-911 :35 BMP GAP 9 (Normal) Range: 5-15 CO2 30.0 mmol/L (Normal) Range: 21.0-32.0 CL 99 mmol/L (Normal) Range: 98-107 K 3.5 mmol/L (Normal) Range: 3.5-5.1 CA 9.5 mg/dL (Normal) Range: 8.5-10.1 NA 138 mmol/L (Normal) Range: 136-145 BC 21.7 {RATIO} (Abnormal) Range: 10-20 GFR 111 mL/min (Normal) GFRAA 135 mL/min (Normal) CREAT 0.6 mg/dL (Normal) Range: 0.6-1.0 BUN 13 mg/dL (Normal) Range: 7-18 GLU 110 mg/dL (Normal) Range: 70-110 Comments: Fasting Glucose result from 110 to <126 mg/dLsuggests IMPAIRED HOMEOSTASIS per A.D.A. criteria. :35 LIPID VLDL 11 mg/dL (Normal) Range: 5-40 LDL 74 mg/dL (Normal) Range: 0-130 HDL 85 mg/dL (Normal) Comments: Reference RangeHDL <40 mg/dL Low HDL CholesterolHDL >or= 60 mg/dL High HDL Cholesterol TRIG 56 mg/dL (Normal) Range: 0-199 Comments: Serum Triglycerides Reference IntervalNormal <150 mg/dLBorderline high 150 - 199 mg/dLHigh 200 - 499 mg/ dLVery High > or = 500 mg/dL CHOL 170 mg/dL (Normal) Comments: <200 mg/dL [id number] mg/dL Borderline>240 mg/dL High Risk :35 MIACRE MIALB 6.0 mg/L (Normal) tMICROCREAT 7.0 {mg/g_CRE} (Normal) CREU 85.1 mg/dL (Normal) :35 TSH 0.31 {uIU/mL} (Abnormal) Range: 0.358-3.74 :35 VITD 87.7 mg/mL (Normal) Comments: Vitamin D 25(OH) Status RangeDeficiency <20 ng/mL (50nmol/L)Insuffciency 20 - 30 ng/mL (50 - 75 nmol/L)Sufficiency 30 - 100 ng/mL (75 - 250 nmol/L)Toxicity >100 ng/mL (>250 nmol/L) :54 Urinalysis, Office ([id number]) UA - LEUKOCYTE ESTERASE Trace (Normal) UA - NITRITE Negative (Normal) URINE UROBILINGN DIMITRY TIMED Normal mg/dL (Normal) UA - PROTEIN Negative mg/dL (Normal) UA - PH 8 (Abnormal) UA - BLOOD Negative (Normal) UA - SPECIFIC GRAVITY 1.010 (Normal) UA - KETONES Negative mg/dL (Normal) UA - BILIRUBIN Negative (Normal) UA - GLUCOSE Negative (Normal) [id number]-Cet-[id number]:00 CBCD ANC 2.2 {X10_3/uL} (Normal) Range: 2.0-7.7 IG% 0.200 % (Normal) Range: 0.0-0.9 Comments: IG% - Immature Granulocytes (promyelocytes, myelocytes andmetamyelocytes) > 1% indicates that a LEFT SHIFT is Present. B% 0.7 % (Normal) Range: 0-1 E% 2.7 % (Normal) Range: 0-5 M% 8.6 % (Normal) Range: 0-10 L% 37.6 % (Normal) Range: 19-41 N% 50.2 % (Normal) Range: 47-70 MPV 11.0 fL (Normal) Range: 6.2-12.0 PLT 176 K/mm3 (Normal) Range: 150-450 RDWSD 43.0 fL (Normal) Range: 35.1-43.9 RDWCV 12.9 % (Normal) Range: 11.6-14.6 MCHC 32.7 {g/gl} (Normal) Range: 32-36 MCH 31.0 pg (Normal) Range: 27.0-32.0 MCV 94.7 fL (Normal) Range: 81-99 HCT 39.4 % (Normal) Range: 37-47 HGB 12.9 g/dL (Normal) Range: 12.0-15.0 RBC 4.16 {M/mm3} (Abnormal) Range: 4.2-5.4 WBC 4.4 K/mm3 (Normal) Range: 4.4-11.0 : CMP Comments: DR. KHANNA ORDERED TSH,CMP,CBCD,MICROALBUMIN,LIPIDHEIDI BOB GUERRA ORDERED TSH,T4F GAP 5 (Normal) Range: 5-15 CO2 31.0 mmol/L (Normal) Range: 21.0-32.0 CL 101 mmol/L (Normal) Range: 98-107 K 4.0 mmol/L (Normal) Range: 3.5-5.1 NA 137 mmol/L (Normal) Range: 136-145 BIT 0.50 mg/dL (Normal) Range: 0.00-1.00 ALT 30 U/L (Normal) Range: 12-78 ALK 92 U/L (Normal) Range: 50-136 AST 21 U/L (Normal) Range: 15-37 CA 9.3 mg/dL (Normal) Range: 8.5-10.1 AG 1.3 {RATIO} (Normal) Range: 0.9-2.4 GLOB 2.9 g/dL (Normal) Range: 2.7-4.2 ALB 3.7 g/dL (Normal) Range: 3.4-5.0 TPROT 6.6 g/dL (Normal) Range: 6.4-8.2 BC 23.8 {RATIO} (Abnormal) Range: 10-20 GFRAA 97 mL/min (Normal) GFR 80 mL/min (Normal) CREAT 0.8 mg/dL (Normal) Range: 0.6-1.0 BUN 19 mg/dL (Abnormal) Range: 7-18 GLU 60 mg/dL (Abnormal) Range: 70-110 : LIPID Comments: DR. KHANNA ORDERED TSH,CMP,CBCD,MICROALBUMIN,LIPIDDIONE GUERRA CNP ORDERED TSH,T4F VLDL 5 mg/dL (Normal) Range: 5-40 HDL 72 mg/dL (Normal) Comments: Reference RangeHDL <40 mg/dL Low HDL CholesterolHDL >or= 60 mg/dL High HDL Cholesterol LDL 87 mg/dL (Normal) Range: 0-130 CHOL 164 mg/dL (Normal) Comments: <200 mg/dL Pjtazndra410-080 mg/dL Borderline>240 mg/dL High Risk TRIG 27 mg/dL (Normal) Range: 0-199 Comments: Serum Triglycerides Reference IntervalNormal <150 mg/dLBorderline high 150 - 199 mg/dLHigh 200 - 499 mg/ dLVery High > or = 500 mg/dL [id number]-Ovk-[id number]:00 MIACRE tMICROCREAT 12.6 {mg/g_CRE} (Normal) CREU 44.4 mg/dL (Normal) MIALB 5.6 mg/L (Normal) 26-Crq-793979:00 T4F 1.40 ng/dL (Normal) Comments: DR. KHANNA ORDERED TSH,CMP,CBCD,MICROALBUMIN,LIPIDDIONE GUERRA CNP ORDERED TSH,T4F Range: 0.76-1.46 36-Cfp-270283:00 TSH 1.28 {uIU/mL} (Normal) Comments: DR. KHANNA ORDERED TSH,CMP,CBCD,MICROALBUMIN,LIPIDDIONE GUERRA CNP ORDERED TSH,T4F Range: 0.358-3.74 86-Zfp-678919:12 HgA1C , Office ([id number]) HgA1C , Office 6.9 % (Normal) Range: 4.6 - 7.1 4-Tuq-342768:45 URINE VEE CULTURE-DIMITRY COL Comments: PATIENT NOT FASTINGPERFORMED BY: [facility] [id number] [facility] [id number] Information: SRC:URC [id number] COUNT ([id number]) Result 1 MUG (Normal) Comments: Mixed urogenital Colonies/mL Urine Culture,Comprehensive Final report (Normal) [id number]-[id number]:36 Urinalysis, Office ([id number]) UA - BILIRUBIN Negative (Normal) UA - BLOOD Negative (Normal) UA - GLUCOSE Moderate (Normal) UA - KETONES Negative mg/dL (Normal) UA - LEUKOCYTE ESTERASE Negative (Normal) UA - NITRITE Negative (Normal) UA - PH 6.5 (Normal) UA - PROTEIN Negative mg/dL (Normal) UA - SPECIFIC GRAVITY 1.025 (Normal) URINE UROBILINGN DIMITRY TIMED Normal mg/dL (Normal) [id number]-Qhb-333623:34 HgA1C , Office (18718) HgA1C , Office 6.4 % (Normal) Range: 4.6 - 7.1 39-Vqz-868610:38 THYROID Radiology Report See Note Comments: PROCEDURE: THYROID ULTRASOUND REASON FOR EXAM: Female, 52 years old. Abnormal thyroid functiontests. TECHNIQUE: Ultrasound evaluation of the thyroid was performed withreal-time and static gonzales-sc (Normal) sammy imaging. COMPARISON: None. FINDINGS: RIGHT LOBE: The right lobe of the thyroid gland measures 2.2 x 0.9 x 0.5cm. There is a heterogeneous echotexture. There is a 5 x 2 x 2 mmhyperechoic nodule of the mid pole which is solid, regular withperinodularvascular flow.. LEFT LOBE: The left lobe of the thyroid gland measures 3.0 x 1.2 x 0.7cm.There is a heterogene ous texture. There is a 6 x 6 x 4 millimeterhypoechoic solid, regular midpole nodule with perinodular vascularity. ISTHMUS: The isthmus measures 0.1 centimeter. IMP RESSION:1. Small heterogeneous thyroid.2. 5 x 2 x 2 mm solid hyperechoic nodule in the midpole of the rightthyroid.3. 6 x 6 x 4 mm hypoechoic solid nodule of the left thyroid lobe. Signed:Windy Hill M.D.January 19, 2013 at 4:08:34 PM [id number] Signed TT/TT If you are the referring physician and would like to consult with theradiologist who provided this interpretation, jonah ansari contact Windy Bravo M.D. at [phone]. If this radiologist is unavailable, youwillbe directed to another radiologist to assist. If you are a patient with a question regarding this report, pl sorayacontactyour referring physician directly. Professional Interpretation Provided By: Fly Victor, Phone , These documents contain legally protected and confidential healt hinformation intended only for the use of the individual or entity namedabove. If you are not the intended recipient, you are hereby notifiedthatany disclosure, copying, distribution, or other use of [facility] documents isstrictly prohibited. If you have received this information in error,pleasenotify the sender immediately and arrange for the return or destructionofthese documents. Dictated on 3 1608 by Liz CM,TheresaTranscribed on 01/19/13 1610 by ITS IMPORTSign by Liz CM,Windy on 01/19/13 161 Sign by: Liz CM,Windy :51 EBV Acute Infection Comments: PATIENT NOT FASTINGPERFORMED BY: [facility] [id number] [facility] [id number] Information: [id number] Antibodies EBV Nuclear Antigen Ab, 7.4 {AI} (Abnormal) Range: 0.0-0.8 IgG Comments: Negative <0.9 Equivocal 0.9 - 1.0 Positive >1.0 Interpretation: SPRCS (Normal) Comments: EBV Interpretation Chart . Interpretation VCA-IgM EA-IgG VCA-IgG NA-ABS . Susceptible - - - - Acute Infection + +or- +or- - Convalescent Phase +or- +or- + + Chronic or Reactivated - + + +or- Old Infection - - +or- + + Antibody Present - Antibody Absent EBV Ab VCA, IgG 0.7 {AI} (Normal) Range: 0.0-0.8 Comments: Negative <0.9 Equivocal 0.9 - 1.0 Positive >1.0 EBV Early Antigen Ab, 1.8 {AI} (Abnormal) Range: 0.0-0.8 IgG Comments: Negative <0.9 Equivocal 0.9 - 1.0 Positive >1.0 EBV Ab VCA, IgM <0.2 {AI} (Normal) Range: 0.0-0.8 Comments: Negative <0.9 Equivocal 0.9 - 1.0 Positive >1.0 Mononucleosis Test, Qual Negative (Normal) Comments: PATIENT NOT FASTINGPERFORMED BY: [facility] [facility] [id number] 4:51 Comments: The sensitivity of Heterophile antibody testing is 80-90%.Soco Wolfe IgM testing offers higher sensitivity. Written Authorization WAR (Normal) Comments: PATIENT NOT FASTINGPERFORMED BY: [facility] [facility] [id number] 4:51 Comments: Written Authorization Received.Authorization received from AGUSTINA HARRY [id number] by Shellie Silvestre :51 TSH ([id number]) Comments: PATIENT NOT FASTINGPERFORMED BY: [facility] [facility] [id number] TSH 0.109 {uIU/mL} (Abnormal) Range: 0.450-4.500 :51 T4, FREE (THYROXINE) Comments: PATIENT NOT FASTINGPERFORMED BY: [facility] [facility] [id number] Information: [id number] ([id number]) T4,Free(Direct) 2.12 ng/dL (Abnormal) Range: 0.82-1.77 :51 T3, FREE (TRIDOTHYRONINE) (25410) Comments: PATIENT NOT FASTINGPERFORMED BY: [facility] [facility] [id number] Triiodothyronine,Free,Serum 3.1 pg/mL (Normal) Range: 2.0-4.4 :36 FOOT MIN 3 VIEWS Radiology Report See Note (Normal) Comments: PROCEDURE: X-RAY - RIGHT FOOT CLINICAL: Female, 52 years old. Lateral pain and swelling followinginjury TECHNIQUE: Three view(s) of the foot. COMPARISON: None. FINDINGS:Normal talus, calcaneus, and tarsal bones. Normal visualized subtalar, talonavicular, calcaneocuboid, tarsal andtarsometatarsal articulations. Normal metatarsi. Normal metatarsophalangeal joint of the great toe. Normal tibial andfibular sesamoid bones. Normal interphalangeal joint of the great toe.Normal phalanges of the great toe. Normal second through fifth metatarsophalangeal joints. Normalinterphalangeal joints of the lesser toes. Normal phalanges of thelessertoes. IMPRESSION:Normal x-ray examination of the foot. Signed:Salvador Pike M.D.December 14, 2012 at 4:05:51 PM [id number] Signed GP/GP If you are the referring physician and would like to consult with theradiologist who provided this interpretation, please contact Douglas Harden at [phone]. If this radiologist is unavailable , youwill be directed to another radiologist to assist. If you are a patient with a question regarding this report, pleasecontactyour referring physician directly. Professional Interpretation Provided B y: [employer], Phone , These documents contain legally protected and confidential healthinformation intended only for the use of the individual or entity namedabove. If yo u are not the intended recipient, you are hereby notifiedthatany disclosure, copying, distribution, or other use of these documents isstrictly prohibited. If you have received this information in error, pleasenotify the sender immediately and arrange for the return or destructionofthese documents. Dictated on 12/14/12 1032 by Matthew Pike MDranscribed on 12/14/12 1611 by ITS IMPORTSign by Salvador Oliva MD on 12/14/12 1612 Sign by: Salvador Pike MD 1-Tjv-092824:35 ANKLE MIN 3 VIEWS Radiology Report See Note (Normal) Comments: PROCEDURE: X-RAY - RIGHT ANKLE REASON FOR EXAM: Female, 52 years old. Lateral ankle pain and swellingfollowing injury. TECHNIQUE: Three views of the ankle. COMPARISON: None. FINDINGS:The mild d egree of soft tissue swelling overlying the lateral malleolus.Atiny bony chip is seen adjacent to the lateral malleolus. This appears kush old injury, although a tiny avulsion cannot be ruled out. Nor maltibiotalar articulation and ankle mortise. Normal visualized talus and calcaneus. The visualized subtalar, talonavicular, calcaneocuboid and tarsalarticulations are normal. IMPRESSION:Soft tissue swe lling overlying the lateral malleolus with possible tinyavulsion of the lateral malleolus. Signed:Salvador Pike M.D.December 14, 2012 at 11:22:57 AM [id number] Signed GP/GP If you are the referring physician and would like to consult with theradiologist who provided this interpretation, please contact Douglas Harden at [phone]. If this radiologist is unavailable, youwi ll be directed to another radiologist to assist. If you are a patient with a question regarding this report, pleasecontactyour referring physician directly. Professional Interpretation Provided By: Hawk mooney, Phone , These documents contain legally protected and confidential healthinformation intended only for the use of the individual or entity namedabove. If you are n ot the intended recipient, you are hereby notifiedthatany disclosure, copying, distribution, or other use of these documents isstrictly prohibited. If you have received this information in error,pleasen otify the sender immediately and arrange for the return or destructionofthese documents. Dictated on 12/14/12 1032 by Matthew Pike MDranscribed on 12/14/12 1132 by ITS IMPORTSign by Salvador Pike MD on 12/14/12 1133 Sign by: Salvador Pike MD 95-Vqr-24038:43 CBCMD ANC 1.6 3/uL (Abnormal) Range: 2.0-7.7 IG% 0.00 % (Normal) Range: 0.0-0.0 B% 0.5 % (Normal) Range: 0-1 E% 4.2 % (Normal) Range: 0-5 M% 10.3 % (Abnormal) Range: 0-10 L% 42.3 % (Abnormal) Range: 19-41 N% 42.7 % (Abnormal) Range: 47-70 MPV 10.5 fL (Normal) Range: 6.2-12.0 PLT 179 K/mm3 (Normal) Range: 150-450 RDWSD 42.9 fL (Normal) Range: 35.1-43.9 RDWCV 12.6 % (Normal) Range: 11.6-14.6 MCH 30.5 pg (Normal) Range: 27.0-32.0 MCHC 32.8 g/dL (Normal) Range: 32-36 MCV 92.9 fL (Normal) Range: 81-99 HCT 40.5 % (Normal) Range: 37-47 HGB 13.3 g/dL (Normal) Range: 12.0-15.0 RBC 4.36 {M/mm3} (Normal) Range: 4.2-5.4 WBC 3.8 {k/mm3} (Abnormal) Range: 4.4-11.0 :43 CMP GAP 5 (Normal) Range: 5-15 CO2 32.0 mmol/L (Normal) Range: 21.0-32.0 CL 102 mmol/L (Normal) Range: 98-107 K 4.0 mmol/L (Normal) Range: 3.5-5.1 NA 139 mmol/L (Normal) Range: 136-145 BIT 0.60 mg/dL (Normal) Range: 0.00-1.00 ALT 33 U/L (Normal) Range: 12-78 ALK 96 U/L (Normal) Range: 50-136 AST 16 U/L (Normal) Range: 15-37 CA 9.2 mg/dL (Normal) Range: 8.5-10.1 AG 1.1 {RATIO} (Normal) Range: 0.9-2.4 GLOB 3.3 g/dL (Normal) Range: 2.7-4.2 ALB 3.7 g/dL (Normal) Range: 3.4-5.0 TPROT 7.0 g/dL (Normal) Range: 6.4-8.2 BC 20.0 {RATIO} (Normal) Range: 10-20 GFRAA 113 mL/min (Normal) GFR 93 mL/min (Normal) CREAT 0.7 mg/dL (Normal) Range: 0.6-1.0 BUN 14 mg/dL (Normal) Range: 7-18 GLU 39 mg/dL (Abnormal) Range: 70-110 Comments: Glucose result less than 50 mg/dL suggests HYPOGLYCEMIA.CRITICAL VALUE REPEATED AND VERIFIED. CALLED TO KVJIYU14/19/13 1308 MANDEEP ANDERSON.RESULTS READ BACK BY SAME. :43 DDIMQ 0.30 {FEUug/mL} (Normal) Range: 0.22-0.48 Comments: NORMAL D-Dimer level indicates no DVT or PE. :43 LIPID HDL 69 mg/dL (Normal) Comments: Reference RangeHDL <40 mg/dL Low HDL CholesterolHDL >or= 60 mg/dL High HDL Cholesterol LDL 75 mg/dL (Normal) Range: 0-130 VLDL 9 mg/dL (Normal) Range: 5-40 CHOL 153 mg/dL (Normal) Comments: <200 mg/dL Gafglzusk818-829 mg/dL Borderline>240 mg/dL High Risk TRIG 43 mg/dL (Normal) Comments: Serum Triglycerides Reference IntervalNormal <150 mg/dLBorderline high 150 - 199 mg/dLHigh 200 - 499 mg/ dLVery High > or = 500 mg/dL :43 TROP < 0.02 ng/mL (Normal) Comments: TROPONIN-I EXPECTED VALUES <0.05 NEGATIVE0.06 - 0.59 AT RISK OF KS> OR = 0.60 SUGGEST KS :43 TSH 0.06 {uIU/mL} (Abnormal) Range: 0.358-3.74 29-Znc-[id number]:06 CHEST, PA AND LATERAL Radiology Report See Note (Normal) Comments: PROCEDURE: X-RAY CHEST REASON FOR EXAM: Female, 51 years old. Chest pain. TECHNIQUE: PA and lateral views of the chest. COMPARISON: None. FINDINGS: The lungs are hyper expanded, with flattening of the hemidiaphragms.Thereis no demonstrated parenchymal abnormality. There is no demonstratedpleural abnormality. Normal heart and pericardium. Normal mediastinum and rio. Normal visualized pulmon reza arteries.Normalvisualized aortic arch and descending thoracic aorta. There are diffuse degenerative changes of the visualized thoracic spine.Normal visualized ribs, clavicles, and shoulders. There i s no demonstrated abnormality of the visualized soft tissuestructures of the upper abdomen. IMPRESSION:Hyperinflation. Signed:Salvador Pike M.D.October 24, 2012 at 11:17:45 AM [id number] nically Signed GP/GP If you are the referring physician and would like to consult with theradiologist who provided this interpretation, please contact Douglas Harden at [phone]. If this ra diologist is unavailable, youwill be directed to another radiologist to assist. If you are a patient with a question regarding this report, pleasecontactyour referring physician directly. Professional I nterpretation Provided By: Fly Victor, Phone , These documents contain legally protected and confidential healthinformation intended only for the use of the individual or entity namedabove. If you are not the intended recipient, you are hereby notifiedthatany disclosure, copying, distribution, or other use of these documents isstrictly prohibited. If you have received th is information in error,pleasenotify the sender immediately and arrange for the return or destructionofthese documents. Dictated on 10/23/12 1706 by Matthew Pike MDranscribed on 10/24/12 1440 by ITS IMPORTSign by Salvador Pike MD on 10/24/12 1441 Sign by: Salvador Pike MD 12-Czn-219550:30 HEPATOBILLIARY IMG W/PHARM INT Radiology Report See Note (Normal) Comments: CLINICAL:51-year-old female with history of right upper quadrant abdominal painandnausea. RADIONUCLIDE HEPATOBILIARY SCINTIGRAPHY COMPARISON:Gallbladder ultrasound report 07/07/12, CT of the abdomen-pel vis /23/12 FINDINGS:Following the intravenous administration of 5.2 mCi of Tc Mebrofenin,hepatobiliary images reveal: 1. Relatively prompt and homogeneous radiopharmaceutical concentrationisnot ed by a normal sized liver. No parenchymal defects are identified.2. Gallbladder activity is identified at 15 minutes postradiopharmaceutical administration.3. Small intestinal tract is not identifie d during 60 minutes ofpre-cholecystokinin image acquisition. Small bowel is demonstratedfollowing administration of CCK.4. Washout of the radiopharmaceutical by the hepatic parenchyma occursina normal fashion on qualitative inspection. Cholecystokinin (0.02 ug/kg) was administered intravenously over f16-ccnvud period. The post CCK gallbladder ejection fraction vsijlzwkjmox68 minutes following Cholec ystokinin administration was noted to be 80.3%(normal greater than 35%). During 30 minutes of post CCK imaging, thereisno scintigraphic evidence of reflux of the radiotracer into the commonhepatic duct or refilling of the gallbladder. There is scintigraphicevidence of trace post CCK duodenal gastric reflux. IMPRESSION:1. A gallbladder ejection fraction calculated to be greater than 35%following the administration of Cholecystokinin makes the probability offunctional hepatobiliary disease (gallbladder and/or sphincter of Oddidyskinesia) and/or organic hepatobiliary disease (chronic acalculouschole cystitis and/or cystic duct syndrome) to be low. (Essence Anderson et al,Journal of Nuclear Medicine 32:1695, 1990). 2. 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 (Chani et al, Nucl Med Priscilla Sylvie Press pg. 35, 1980). Signed:Silvano Iglesias M.D.July 29, 2012 at 1:03:05 PM [id number] Signed RB/RB If you are the referring physician and would like to consult with theradiologist who provided this interpretation, please contact Douglas Sousa at [phone]. If this radiologist is unavailable, you will bedirected to another radiologist to assist. If you are a patient with a question regarding this report, pleasecontactyour referring physician directly. Professional Interpretation Provided By: Fly Victor, Phone , T hese documents contain legally protected and confidential healthinformation intended only for the use of the individual or entity namedabove. If you are not the intended recipient, you are hereby notifi edthatany disclosure, copying, distribution, or other use of these documents isstrictly prohibited. If you have received this information in error,pleasenotify the sender immediately and arrange for the return or destructionofthese documents. Dictated on 07/28/12 0808 by Harris HARRISSilvanoTranscribed on 07/29/12 1307 by ITS IMPORTSign by Harris HARRISSilvano on 07/29/12 1308 Sign by: Harris HARRISSilvano 36-Bjs-557301:57 Urinalysis, Office ([id number]) UA - BILIRUBIN Negative (Normal) UA - BLOOD Negative (Normal) UA - GLUCOSE Trace (Normal) Comments: 100mg UA - KETONES Negative mg/dL (Normal) UA - LEUKOCYTE ESTERASE Negative (Normal) UA - NITRITE Negative (Normal) UA - PH 7.0 (Normal) UA - PROTEIN Negative mg/dL (Normal) UA - SPECIFIC GRAVITY 1.010 (Normal) URINE UROBILINGN DIMITRY TIMED Normal mg/dL (Normal) 88-Dlj-[id number]:35 GALLBLADDER Radiology Report See Note (Normal) Comments: PROCEDURE: ABDOMINAL ULTRASOUND - RIGHT UPPER QUADRANT REASON FOR VISIT: Female, 51 years old. Abdominal pain, right upperquadrant. TECHNIQUE: Ultrasound evaluation of the right upper quadrant wa sperformed with real-time and static gonzales-scale imaging. TECHNICAL QUALITY: Adequate. COMPARISON: CT abdomen pelvis 06/30/12. FINDINGS: Liver: The liver measures 14.2 cm. There is a focal well-ci rcumscribedechogenic region in the posterior right hepatic lobe measuring 1.2 x 0.8x1.0 cm consistent with an hepatic hemangioma. The bile ducts are withinnormal limits. There is hepatic color flow. The direction of portalflowis hepatopetal. There is no demonstrated mass lesion. Gallbladder: Normal distended gallbladder. The gallbladder wallmeasures3 mm. There is a negative sonographic Martins' s sign. There is nopericholecystic fluid. There are no gallstones. Common Bile Duct (C.B.D.): The common bile duct measures 3 mm. Pancreas: Normal size of the head, body and tail of the pancreas.T hereis normal echogenicity of the pancreas. There is no demonstratedpancreatic mass or cyst. Right Kidney: Normal size of the right kidney. The right sufdpsbybihbxl73.5 x 4.7 x 3.7 cm. Normal renal cortex. The right cortex measures 1.0cm. There is no demonstrated renal mass or cyst. There is no righthydronephrosis. IMPRESSION:Focal right hepatic lobe well-circumscribed echogenic lesion consist entwith an hemangioma. No evidence of an acute intra-abdominal process. Signed:Tan Agee M.D.July 07, 2012 at 9:08:04 PM [id number] Signed SH/SH If you are the referring ysician and would like to consult with theradiologist who provided this interpretation, please contact Douglas Cohn at [phone]. If this radiologist is unavailable, youwillbe directed to [facility] ther radiologist to assist. If you are a patient with a question regarding this report, pleasecontactyour referring physician directly. Professional Interpretation Provided By: Fly Victor, Phone , These documents contain legally protected and confidential healthinformation intended only for the use of the individual or entity namedabove. If you are not the intended recip ient, you are hereby notifiedthatany disclosure, copying, distribution, or other use of these documents isstrictly prohibited. If you have received this information in error,pleasenotify the sender imme diately and arrange for the return or destructionofthese documents. 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 LMP: Postmenopausal.. TECHNIQUE: Transabdominal TECHNICAL QUALITY: Adequate. COMPARISON: CT abdom en pelvis /30/07. FINDINGS:The uterus is retroverted and is in a midline position. The uterusmeasures 8.1 x 4.5 x 3.5 cm. Normal uterine cervix. The endometriummeasures 3 mm in thickness, and is h yperechoic. There is no demonstratedendometrial mass. There are multiple myometrial fundal fibroids, thelargest measures 1.2 x 1.7 x 1 .0 cm I.U.D. - No The right ovary is visualized. The right ova ry measures 3.0 by 1.6 x 1.8cm. There is no right ovarian cyst or ovarian mass. There is novisualized right adnexal mass or complex lesion. There is normal arterialand normal venous vascularity. The l eft ovary was not visualized. There is no fluid in the cul-de-sac. The distended urinary bladder had a volume of 342 ml at the time of theexam. IMPRESSION:Multiple uterine fundal myometrial leiomyomata, the largest measuring 1.2x1.7 x 1.0 cm. Signed:Tan Agee M.D.July 07, 2012 at 9:28:02 PM [id number] Signed SH/ If you are the referring physician and would like to consu lt with theradiologist who provided this interpretation, please contact Douglas Cohn at [phone]. If this radiologist is unavailable, youwillbe directed to another radiologist to assist. If you are a patient with a question regarding this report, pleasecontactyour referring physician directly. Professional Interpretation Provided By: Fly Victor, Phone , These documents contain legally protected and confidential healthinformation intended only for the use of the individual or entity namedabove. If you are not the intended recipient, you are hereby notifiedth atany disclosure, copying, distribution, or other use of these documents isstrictly prohibited. If you have received this information in error,pleasenotify the sender immediately and arrange for the ret urn or destructionofthese documents. Dictated on 07/07/12 1340 by Tan Agee MDTranscribed on 07/07/122131 by ITS IMPORTSign by Tan Agee MD on 07/07/122132 Sign by: Tan Agee MD 19-Pbt-81812:58 ABDOMEN/PELVIS WITH CONTRAST Radiology Report See Note (Normal) Comments: PROCEDURE: CT ABDOMEN AND PELVIS WITH CONTRAST REASON FOR EXAM: Female, 51 years old. Right upper quadrant abdominalpain RADIATION DOSAGE (If Supplied By Facility): CTDIvol = ( 12.69 ) mGy, DLP=( 9 66.22 ) mGycm TECHNIQUE: Transaxial images were obtained from the dome of thediaphragmto the symphysis pubis with oral contrast. 100ML ml of Isovue 300contrastwas administered. COMPARISON: None. FI NDINGS:The visualized lung bases are unremarkable. Normal liver. Normal gallbladder and extrahepatic biliary system.Normalspleen. Normal pancreas. Normal bilateral adrenal glands. Normal right kidney. Normal left kidney. Normal visualized stomach. Normal small intestine. Normal colon. Theappendix is visualized and appears normal. Normal abdominal aorta. Normal inferior vena cava. Normalretrope ritoneum. Normal urinary bladder. There are bilateral tubal ligation clips. Normal abdominal wall. Normal osseous structures. IMPRESSION:Normal enhanced CT of the abdomen and pelvis. Signed:Renato Ribera M.D.June 30, 2012 at 10:36:06 AM [id number] Signed MELI/MELI If you are the referring physician and would like to consult with theradiologist who provided this interpretati on, please contact Douglas Granado at . If this radiologist is unavailable,youwill be directed to another radiologist to assist. If you are a patient with a question regarding this report, pleasecontactyour referring physician directly. Professional Interpretation Provided By: Fly Victor, Phone , These documents contain legally protected and confiden tial healthinformation intended only for the use of the individual or entity namedabove. If you are not the intended recipient, you are hereby notifiedthatany disclosure, copying, distribution, or other use of these documents isstrictly prohibited. If you have received this information in error,pleasenotify the sender immediately and arrange for the return or destructionofthese documents. Dictated on 06/30/12 0708 by Renato Guo MDTranscribed on 06/30/12 1140 by ITS IMPORTSign by Renato Guo MD on 06/30/12 1140 Sign by: ____ Renato Guo MD 91-Kkv-110405:24 Urine Culture,Comprehensive Comments: PATIENT NOT FASTINGPERFORMED BY: [id number]Dublin [place] [id number] Information: SRC: [id number] Antimicrobial MIHEAD (Normal) Comments: S = Susceptible; I = Intermediate; R = Resistant P = Positive; N = Negative MICS are expressed in micrograms per mL Antibiotic RSLT#1 RSLT#2 Susceptibility RSLT#3 RSLT#4Amoxicillin/Clavulanic Acid RAmpicillin RCefazolin SCefepime SCeftriaxone SCefuroxime ICephalothin RCiprofloxacin SESBL NErtapenem SGentamicin SImipenem S Levofloxacin SNitrofurantoin SPiperacillin RTetracycline STobramycin STrimethoprim/Sulfa S Result 1 Escherichia coli Comments: Greater than 100,000 colony forming units per mL (Normal) Urine Final report Culture,Comprehensive (Normal) 71-Lel-733922:20 Urinalysis, Office (65274) UA - BILIRUBIN Negative (Normal) UA - BLOOD Negative (Normal) UA - GLUCOSE Negative (Normal) UA - KETONES Negative mg/dL (Normal) UA - LEUKOCYTE ESTERASE Negative (Normal) UA - NITRITE Negative (Normal) UA - PH 6.5 (Normal) UA - PROTEIN Negative mg/dL (Normal) UA - SPECIFIC GRAVITY 1.015 (Normal) URINE UROBILINGN DIMITRY TIMED Normal mg/dL (Normal) Plan of Care Name Dates Details Instructions BMI 22.0-22.9, adult : Eprescribed prescriptions (G8553) Indication: BMI 22.0-22.9, adult Body mass index (BMI) 23.0-23.9, adult : Eprescribed prescriptions (G8553) Indication: Body mass index (BMI) 23.0-23.9, adult Body mass index (BMI) 23.0-23.9, adult : Eprescribed prescriptions (G8553) Indication: Body mass index (BMI) 23.0-23.9, adult Chest pain with high risk for cardiac etiology : Eprescribed prescriptions (G8553) Indication: Chest pain with high risk for cardiac etiology Body mass index (BMI) 23.0-23.9, adult : Eprescribed prescriptions (G8553) Indication: Body mass index (BMI) 23.0-23.9, adult Body mass index (BMI) 23.0-23.9, adult : Eprescribed prescriptions (G8553) Indication: Body mass index (BMI) 23.0-23.9, adult [facility] : Eprescribed prescriptions (G8553) Indication: [facility] Post-nasal drip : Continue Current Prescription(s) Indication: Post-nasal drip Sore throat : Eprescribed prescriptions (G8553) Indication: Sore throat Diabetes mellitus type 1, controlled : Eprescribed prescriptions (G8553) Indication: Diabetes mellitus type 1, controlled Abnormal lung sounds : *Antibiotic Usage Education - Female Indication: Abnormal lung sounds Non-smoker : Eprescribed prescriptions (G8553) Indication: Non-smoker Acquired hypothyroidism : Continue Current Prescription(s) Indication: Acquired hypothyroidism Acquired hypothyroidism : Reviewed Lab Indication: Acquired hypothyroidism Osteoporosis (Renamed from OP (osteoporosis)) : Reviewed Diagnostic Tests Indication: Osteoporosis (Renamed from OP (osteoporosis)) Osteoporosis (Renamed from OP (osteoporosis)) : Reviewed Modern Dancer Letter Indication: Osteoporosis (Renamed from OP (osteoporosis)) Diabetes mellitus type 1, controlled : *Diabetes Education Indication: Diabetes mellitus type 1, controlled Mixed hyperlipidemia : Cholesterol mgmt Indication: Mixed hyperlipidemia Anxiety : Eprescribed prescriptions (G8553) Indication: Anxiety Accidental fall, sequela : Reviewed Modern Dancer Letter Indication: Accidental fall, sequela Cough : Eprescribed prescriptions (G8553) Indication: Cough Diabetes mellitus type 1, controlled : Eprescribed prescriptions (G8553) Indication: Diabetes mellitus type 1, controlled Otitis Externa : Eprescribed prescriptions (G8553) Indication: Otitis Externa Mixed hyperlipidemia : Eprescribed prescriptions (G8553) Indication: Mixed hyperlipidemia Diabetes mellitus type 1, controlled : Blood Glucose Test: diabetes Indication: Diabetes mellitus type 1, controlled Diabetes mellitus type 1, controlled : Eprescribed prescriptions (G8553) Indication: Diabetes mellitus type 1, controlled Sinusitis, acute : Follow up if no improvement or if symptoms worsen Indication: Sinusitis, acute Sinusitis, acute : *Antibiotic Usage Education - Female Indication: Sinusitis, acute Acute pharyngitis : Eprescribed prescriptions (G8553) Indication: Acute pharyngitis Need for prophylactic vaccination and inoculation against influenza : Flu (Influenza) *: flu Indication: Need for prophylactic vaccination and inoculation against influenza Need for prophylactic vaccination and inoculation against influenza : Flu (Influenza) *: flu shot Indication: Need for prophylactic vaccination and inoculation against influenza Rt flank pain : Follow up in 2 weeks Indication: Rt flank pain Encounter for immunization : Shingles Vaccine Education 2005 Indication: Encounter for immunization Fall : Follow up as needed Indication: Fall Mixed hyperlipidemia : Cholesterol mgmt Indication: Mixed hyperlipidemia Mixed hyperlipidemia : High Cholesterol (Hypercholesterolemia) *: cholesterol Indication: Mixed hyperlipidemia ACUTE CYSTITIS : follow up for recheck urine 1 week after complete antibiotic Indication: ACUTE CYSTITIS Abdominal pain, acute, right upper quadrant : Abdominal Pain: abdominal pain Indication: Abdominal pain, acute, right upper quadrant Planned Observations MICROALBUMIN: CREATININE RATIO (60677) AND (24450)Indication: Diabetes mellitus type 1, controlled On: 2-Wjr-355287:07 Request METABOLIC PANEL, COMPREHENSIVE (95053)Indication: Mixed hyperlipidemia On: 4-Nlv-466521:07 Request LIPID PANEL (12881)Indication: Mixed hyperlipidemia On: 9-Cfy-285558:06 Request CBC W/AUTO DIFF WBC (01954)Indication: Arthritis, rheumatoid On: 9-Cjn-023820:07 Request CBC W/AUTO DIFF WBC (34233)Indication: Chest pain with high risk for cardiac etiology On: :38 Request METABOLIC PANEL, COMPREHENSIVE (24833)Indication: Mixed hyperlipidemia On: :38 Request LIPID PANEL (85633)Indication: Mixed hyperlipidemia On: :38 Request Rapid Strep Test, Office (38680)Indication: Sore throat On: 83-Jho-139082:51 Request Comments: negative METABOLIC PANEL, COMPREHENSIVE (88278)Indication: Diabetes mellitus type 1, controlled On: :22 Request TSH (02663)Indication: Acquired hypothyroidism On: 35-Trz-842430:22 Request LIPID PANEL (13498)Indication: Mixed hyperlipidemia On: 65-Boi-893858:22 Request METABOLIC PANEL, COMPREHENSIVE (48095)Indication: Mixed hyperlipidemia On: 13-Uyf-240752:54 Request Vitamin D Hydroxy (50368)Indication: Osteoporosis (Renamed from OP (osteoporosis)) On: 29-Pwi-151729:54 Request LIPID PANEL (89514)Indication: Mixed hyperlipidemia On: 14-Vts-431562:53 Request Vitamin D Hydroxy (83467)Indication: Osteoporosis (Renamed from OP (osteoporosis)) On: :42 Request TSH (70226)Indication: Acquired hypothyroidism On: :42 Request CBC W/AUTO DIFF WBC (89216)Indication: Diabetes mellitus type 1, controlled On: :42 Request METABOLIC PANEL, COMPREHENSIVE (97079)Indication: Diabetes mellitus type 1, controlled On: :42 Request LIPID PANEL (35345)Indication: Mixed hyperlipidemia On: :42 Request UPEP (17887)Indication: Osteoporosis (Renamed from OP (osteoporosis)) On: :43 Request SPEP (54265)Indication: Osteoporosis (Renamed from OP (osteoporosis)) On: 0-Tkk-029988:43 Request Throat Culture (31973)Indication: Acute pharyngitis On: 66-Rbu-00649:11 Request Influenza A&B Viral Culture (53094)Indication: Acute pharyngitis On: 33-Jfv-97602:11 Request Vitamin D Hydroxy (45419)Indication: Osteopenia On: 47-Dur-722728:25 Request LIPID PANEL (18977)Indication: Diabetes mellitus type 1, controlled On: 94-Pho-964575:00 Request TSH (67128)Indication: Multinodular goiter On: 34-Zaz-027147:00 Request MICROALBUMIN: CREATININE RATIO (94091) AND (80437)Indication: Diabetes mellitus type 1, controlled On: 33-Jfs-180544:59 Request CBC WITH MANUAL DIFF (88698)Indication: Diabetes mellitus type 1, controlled On: 72-Tss-395110:59 Request METABOLIC PANEL, COMPREHENSIVE (58165)Indication: Diabetes mellitus type 1, controlled On: 57-Xjk-618718:59 Request TSH (15285)Indication: Acquired hypothyroidism On: 2-Csg-979632:17 Request Comments: 6 weeks TSH (02027)Indication: Abnormal TSH On: 89-Flo-06005:52 Request T4, FREE (THYROXINE) (45832)Indication: Abnormal TSH On: :52 Request T3, FREE (TRIDOTHYRONINE) (54187)Indication: Abnormal TSH On: :52 Request EBV Panel (20194)Indication: Fatigue On: 1-Zwt-329744:55 Request MONOSPOT TEST (91187)Indication: Fatigue On: :54 Request LIPID PANEL (06672)Indication: Mixed hyperlipidemia On: :21 Request HEPATIC FUNCTION PANEL (79933)Indication: Mixed hyperlipidemia On: :20 Request TSH (40300)Indication: Acquired hypothyroidism On: :17 Request T4, FREE (THYROXINE) (41857)Indication: Acquired hypothyroidism On: :17 Request T3, FREE (TRIDOTHYRONINE) (69614)Indication: Acquired hypothyroidism On: :17 Request ASSAY, TROPONIN, QUANTITATIVE (aka Troponin I) (18257)Indication: CHEST PAIN On: 99-Bqe-766115:28 Request D-Dimer (84443)Indication: CHEST PAIN On: 68-Eyv-416107:28 Request CBC WITH MANUAL DIFF (48784)Indication: CHEST PAIN On: 79-Rhy-722461:27 Request METABOLIC PANEL, COMPREHENSIVE (53758)Indication: CHEST PAIN On: 21-Zne-040259:27 Request TSH (54761)Indication: Acquired hypothyroidism On: 23-Iiz-877608:27 Request LIPID PANEL (11909)Indication: Mixed hyperlipidemia On: 16-Fnf-238050:26 Request URINE VEE CULTURE-IDENTIFICATN (87637)Indication: Urinary frequency On: 2-Gtg-873711:31 Request CBC WITH MANUAL DIFF (03069)Indication: Abdominal pain, acute, right upper quadrant On: 20-Zig-048601:42 Request LIPID PANEL (47052)Indication: Mixed hyperlipidemia On: :24 Request CBC WITH MANUAL DIFF (73928)Indication: Mixed hyperlipidemia On: 36-Qrx-020955:24 Request METABOLIC PANEL, COMPREHENSIVE (71927)Indication: Mixed hyperlipidemia On: 46-Yin-031854:24 Request Planned Encounters Medical; [facility] 3 Month FU - On: 24-Nov-2018 10:30 [facility] Fast DO, Karin A Fast DO, Karin A Planned Procedures DEXA SCAN AXIAL SKELETON On: 25-Aug-2018 Intent (23228)By: Fast DO, Karin A Fast Comments: october DO, Karin A Radiology - Shoulder - LeftBy: On: 25-Aug-2018 Intent Fast DO, Karin A Fast DO, Karin A Radiology - Shoulder - RightBy: On: 25-Aug-2018 Intent Fast DO, Karin A Fast DO, Karin A Comments: include ac joint Radiology - Hip - BilateralBy: On: 25-Aug-2018 Intent Fast DO, Karin A Fast DO, Karin A Comments: with weight bearing Radiology - Lumbar SpineBy: Fast On: 25-Aug-2018 Intent DO, Karin A Fast DO, Karin A SCREENING DIGITAL TOMOSYNTHESIS On: 25-Aug-2018 Intent OF BREAST (79659)By: Fast DO, Comments: october Karin A Fast DO, Karin A Radiology - Cervical SpineBy: On: 21-Jun-2018 Intent Fast DO, Karin A Fast DO, Karin A Nypybwbff-Dax-Tdcoq (96033)By: On: 21-Jun-2018 Intent Fast DO, Karin A Fast DO, Karin A Flu Vaccine (Quadrivalent) On: 18-May-2018 Intent 70497Nx: Visit, Nurse Nuclear Stress Test/Stress On: 14-Oct-2017 Intent SPECT/AdenosineBy: Fast DO, Karin A Fast DO, Karin A SCREENING DIGITAL TOMOSYNTHESIS On: 14-Oct-2017 Intent OF BREAST (10145)By: Fast DO, Karin A Fast DO, Karin A Ultrasound - ThyroidBy: Fast DO, On: 14-Oct-2017 Intent Karin A Fast DO, Karin A ELECTROCARDIOGRAM, COMPLETE (ECG) On: 14-Oct-2017 Intent (54667)By: Fast DO, Karin A Fast Comments: ekg showed normal sinus rhythym, normal axis, no acute st/t wave changes DO, Karin A Radiology - ChestBy: Noe CM, On: 05-Aug-2017 Intent Roseanne Mccarty Nuclear Medicine - HIDA w/CCKBy: On: 06-Jun-2017 Intent Fast DO, Karin A Fast DO, Karin A Radiology - Foot - LeftBy: Fast On: 08-Apr-2017 Intent DO, Karin A Fast DO, Karin A Comments: attn midfoot - rule out stress fracture Radiology - Thoracic SpineBy: On: 02-Mar-2017 Intent Fast DO, Karin A Fast DO, Karin A Ultrasound - Abdomen (Limited On: 02-Feb-2017 Intent Area or Organs)By: Colton HARRIS Karin Comments: right upper quad A Fast DO, Karin A ELECTROCARDIOGRAM, COMPLETE (ECG) On: 02-Feb-2017 Intent (94741)By: Colton HARRIS, Karin A Fast Comments: ekg showed normal sinus rhythym, normal axis, no acute st/t wave changes DO, Karin A MRI OF RIGHT BREAST WITH AND On: 02-Nov-2016 Intent WITHOUT CONTRAST (C8905)By: Colton HARRIS, Karin A Fast DO, Karin A MAMMOGRAM BREAST BILATERAL On: 25-Oct-2016 Intent DIAGNOSTIC (02322)By: Fast , Karin A Fast DO, Karin A Ultrasound - Breast - RightBy: On: 22-Oct-2016 Intent Fast DO, Karin A Fast DO, Karin A Comments: axilla Ultrasound - ThyroidBy: Cotlon DO, On: 22-Oct-2016 Intent Karin A Fast DO, Karin A Radiology - Chest- PA and LatBy: On: 13-Sep-2016 Intent Keena Thomas DO Aerosol Treatment (92636)By: On: 13-Sep-2016 Intent Keena Thomas DO Comments: more a/e- chest less tight- gave rx for neb Flu Vaccine (Quadrivalent) On: 26-Apr-2016 Intent 30858Qp: Keena Thomas DO Comments: Lot:[id number]:02/04/17mt:0.5mlRoute:IMSite: L DltdGiven By: BUBBA Fernandez signed Radiology - Chest- PA and LatBy: On: 09-Dec-2015 Intent Fast DO, Karin A Fast DO, Karin A Comments: stat Aerosol Treatment (89405)By: Colton On: 09-Dec-2015 Intent DO, Karin A Fast DO, Karin A Ultrasound - ThyroidBy: Fast DO, On: 27-Oct-2015 Intent Karin A Fast DO, Karin A Flu Vaccine (Quadrivalent) On: 20-May-2015 Intent 44368Ub: Fast DO, Karin A Fast Comments: Lot:[id number]:02/05/16Dose:0.5mLRoute:IMSite:L DltdGiven By:CLIFTON wray DO Karin A IMMUNIZ ADMNIN, 1 VAC, SNGL/COMBO On: 17-May-2014 Intent (54905)By: Colton DO Karin A Fast Comments: lot:[id number]:02/04/2015dose:0.5mLRoute: IMlocation: L armgiven by: Zak lambert DOa A FLU VAC, SPLIT, >3 YEARS, On: 17-May-2014 Intent INTRAMUSC (49927)By: Jessica Javier DEXA SCAN AXIAL SKELETON On: 29-Apr-2014 Intent (40117)By: Zak Khanna DOa A Colton DO, Karin A CT - Abdomen & Pelvis (IV On: 01-Jan-2014 Intent Contrast Needed)By: Noe CM, Comments: assure check kidney stone and any other pathology Roseanne Mccarty Eprescribed prescriptions On: 01-Jan-2014 Intent (G8553)By: Noe CM, Roseanne Mccarty Ultrasound - RenalBy: Isaac ROJAS, On: 24-Dec-2013 Intent Vanita Cutler Radiology - Lumbar SpineBy: Ciesa On: 24-Dec-2013 Intent OCCUP THERVanita IMMUNIZ ADMNIN, 1 VAC, SNGL/COMBO On: 03-Dec-2013 Intent (36374)By: Visit, Nurse Comments: Lot: [id number]: [id number]: single unit dose vialRoute:SubcutaneouslySite: L deltoid regionGiven by: LIZANDRO Gonsaleseconstituted with Sterile Diluent Lot #[id number], exp. date , given within 10 minutes of reconstitution. ZOSTER VACC, [place] (54668)By: Visit, On: 03-Dec-2013 Intent Nurse Ultrasound - ThyroidBy: Colton HARRIS, On: 16-Oct-2013 Intent Karin Khanna DO, Karin A Comments: alfredo EsophagramBy: Colton DO, Karin A On: 16-Oct-2013 Intent Colton DO Karin A Comments: with 12 mm tablet Eprescribed prescriptions On: 16-Oct-2013 Intent (G8553)By: Colton HARRIS Karin A Colton DO, Karin A MAMMOGRAM, SCREENING, BOTH On: 16-May-2013 Intent BREASTS (08678)By: Fast DO, Karin A Fast DO, Karin A EsophagramBy: Fast DO, Karin A On: 16-May-2013 Intent Fast DO, Karin A Comments: with 12 mmm tablet FLU VAC, SPLIT, >3 YEARS, On: 16-May-2013 Intent INTRAMUSC (35570)By: Pedro, Comments: Lot #:[id number] date:mount given:0.5mlRoute: IMSite given: L dltdVIS and ABN signedGiven by: AMI Quiroga IMMUNIZ ADMNIN, 1 VAC, SNGL/COMBO On: 16-May-2013 Intent (04699)By: María Vasquez Eprescribed prescriptions On: 16-May-2013 Intent (G8553)By: María Vasquez Ultrasound - ThyroidBy: Ciesa On: 17-Jan-2013 Intent Vanita ROJAS Eprescribed prescriptions On: 17-Jan-2013 Intent (G8553)By: Magnolia Ricketts LPN Ear Irrigation (73664)By: Cierikaa On: 12-Jan-2013 Intent Vanita ROJAS Comments: IrrigationSite- R and L earAmount/Color/Quality - small amount of dark yellow/soft cerumen Toelrated well: yesCurette Used: noChelsea, KERFER MACHINE OPERATOR Wax CurettesBy: Ciesa Vanita ROJAS On: 12-Jan-2013 Intent Eprescribed prescriptions On: 12-Jan-2013 Intent (G8553)By: Leola Madsen Radiology - Foot - RightBy: Fast On: 14-Dec-2012 Intent DO, Karin A Fast DO, Karin A Radiology - Ankle - RightBy: Fast On: 14-Dec-2012 Intent DO, Karin A Fast DO, Karin A Radiology - ChestBy: Fast DO, On: 23-Oct-2012 Intent Karin A Fast DO, Karin A Comments: pa and lateral EKG (86749)By: María Vasquez On: 23-Oct-2012 Intent Comments: ekg showed normal sinus rhythym, normal axis, no acute st/t wave changes Eprescribed prescriptions On: 23-Oct-2012 Intent (G8553)By: María Vasquez Nuclear Medicine - HIDA w/CPKBy: On: 25-Jul-2012 Intent Fast DO, Karin A Fast DO, Karin A Comments: with cck- Eprescribed prescriptions On: 25-Jul-2012 Intent (G8553)By: María Vasquez Ultrasound - PelvisBy: Fast DO, On: 03-Jul-2012 Intent Karin A Fast DO, Karin A Ultrasound - GallbladderBy: Fast On: 03-Jul-2012 Intent DO, Karin A Fast DO, Karin A Eprescribed prescriptions On: 23-Jun-2012 Intent (G8553)By: Fast DO, Karin A Fast DO, Karin A CT - Abdomen & PelvisBy: Fast DO, On: 23-Jun-2012 Intent Karin A Fast DO, Karin A TDAP VACCINE >7 IM (79639)By: On: 07-Apr-2012 Intent María Vasquez Comments: Lot #:[id number] date:mount given:0.5mlRoute: IMSite given:left deltoidGiven by: AMI Quiroga Eprescribed prescriptions On: 07-Apr-2012 Intent (G8553)By: Fast DO, Karin A Fast DO, Karin A PNEUM VAC ADLT/IMUMNOSPR, On: 07-Apr-2012 Intent SBC/INTRM (66265)By: Pedro, Comments: received in 2010 from Alcira Daniel Instructions Name Dates Details BMI 22.0-22.9, adult : How to access health information online Indication: BMI 22.0-22.9, adult BMI 22.0-22.9, adult : How to access health information online - Detail Indication: BMI 22.0-22.9, adult BMI 22.0-22.9, adult : Patient Instructions Indication: BMI 22.0-22.9, adult Diabetes mellitus type 1, controlled : How to access health information online Indication: Diabetes mellitus type 1, controlled Diabetes mellitus type 1, controlled : How to access health information online - Detail Indication: Diabetes mellitus type 1, controlled Diabetes mellitus type 1, controlled : Patient Instructions Indication: Diabetes mellitus type 1, controlled Need for prophylactic vaccination and inoculation against influenza : How to access health information online Indication: Need for prophylactic vaccination and inoculation against influenza Need for prophylactic vaccination and inoculation against influenza : How to access health information online - Detail Indication: Need for prophylactic vaccination and inoculation against influenza Need for prophylactic vaccination and inoculation against influenza : Patient Instructions Indication: Need for prophylactic vaccination and inoculation against influenza Mixed hyperlipidemia : DISCONTINUED - METABOLIC PANEL, COMPREHENSIVE (05181) Indication: Mixed hyperlipidemia Body mass index (BMI) 23.0-23.9, adult : How to access health information online Indication: Body mass index (BMI) 23.0-23.9, adult Body mass index (BMI) 23.0-23.9, adult : How to access health information online - Detail Indication: Body mass index (BMI) 23.0-23.9, adult Body mass index (BMI) 23.0-23.9, adult : Patient Instructions Indication: Body mass index (BMI) 23.0-23.9, adult Body mass index (BMI) 23.0-23.9, adult : How to access health information online Indication: Body mass index (BMI) 23.0-23.9, adult Body mass index (BMI) 23.0-23.9, adult : How to access health information online - Detail Indication: Body mass index (BMI) 23.0-23.9, adult Body mass index (BMI) 23.0-23.9, adult : Patient Instructions Indication: Body mass index (BMI) 23.0-23.9, adult Chest pain with high risk for cardiac etiology : How to access health information online Indication: Chest pain with high risk for cardiac etiology Chest pain with high risk for cardiac etiology : How to access health information online - Detail Indication: Chest pain with high risk for cardiac etiology Chest pain with high risk for cardiac etiology : Patient Instructions Indication: Chest pain with high risk for cardiac etiology Cough : How to access health information online Indication: Cough Cough : How to access health information online - Detail Indication: Cough Cough : Patient Instructions Indication: Cough Body mass index (BMI) 23.0-23.9, adult : How to access health information online Indication: Body mass index (BMI) 23.0-23.9, adult Body mass index (BMI) 23.0-23.9, adult : How to access health information online - Detail Indication: Body mass index (BMI) 23.0-23.9, adult Body mass index (BMI) 23.0-23.9, adult : Patient Instructions Indication: Body mass index (BMI) 23.0-23.9, adult Body mass index (BMI) 23.0-23.9, adult : How to access health information online Indication: Body mass index (BMI) 23.0-23.9, adult Body mass index (BMI) 23.0-23.9, adult : How to access health information online - Detail Indication: Body mass index (BMI) 23.0-23.9, adult Body mass index (BMI) 23.0-23.9, adult : Patient Instructions Indication: Body mass index (BMI) 23.0-23.9, adult Non-smoker : How to access health information online Indication: Non-smoker Non-smoker : How to access health information online - Detail Indication: Non-smoker Non-smoker : Patient Instructions Indication: Non-smoker [facility] : How to access health information online Indication: [facility] : How to access health information online - Detail Indication: [facility] : Patient Instructions Indication: [facility] Sore throat : How to access health information online Indication: Sore throat Sore throat : How to access health information online - Detail Indication: Sore throat Sore throat : Patient Instructions Indication: Sore throat Diabetes mellitus type 1, controlled : How to access health information online Indication: Diabetes mellitus type 1, controlled Diabetes mellitus type 1, controlled : How to access health information online - Detail Indication: Diabetes mellitus type 1, controlled Diabetes mellitus type 1, controlled : Patient Instructions Indication: Diabetes mellitus type 1, controlled Non-smoker : How to access health information online Indication: Non-smoker Non-smoker : How to access health information online - Detail Indication: Non-smoker Non-smoker : Patient Instructions Indication: Non-smoker Anxiety : How to access health information online Indication: Anxiety Anxiety : How to access health information online - Detail Indication: Anxiety Anxiety : Patient Instructions Indication: Anxiety Cough : How to access health information online Indication: Cough Cough : How to access health information online - Detail Indication: Cough Cough : Patient Instructions Indication: Cough Diabetes mellitus type 1, controlled : How to access health information online Indication: Diabetes mellitus type 1, controlled Diabetes mellitus type 1, controlled : How to access health information online - Detail Indication: Diabetes mellitus type 1, controlled Diabetes mellitus type 1, controlled : Patient Instructions Indication: Diabetes mellitus type 1, controlled Otitis Externa : How to access health information online Indication: Otitis Externa Otitis Externa : How to access health information online - Detail Indication: Otitis Externa Otitis Externa : Patient Instructions Indication: Otitis Externa Mixed hyperlipidemia : How to access health information online Indication: Mixed hyperlipidemia Mixed hyperlipidemia : How to access health information online - Detail Indication: Mixed hyperlipidemia Mixed hyperlipidemia : Patient Instructions Indication: Mixed hyperlipidemia Mixed hyperlipidemia : Patient Instructions Indication: Mixed hyperlipidemia Diabetes mellitus type 1, controlled : How to access health information online Indication: Diabetes mellitus type 1, controlled Diabetes mellitus type 1, controlled : How to access health information online - Detail Indication: Diabetes mellitus type 1, controlled Diabetes mellitus type 1, controlled : Patient Instructions Indication: Diabetes mellitus type 1, controlled Acute pharyngitis : How to access health information online Indication: Acute pharyngitis Acute pharyngitis : How to access health information online - Detail Indication: Acute pharyngitis Acute pharyngitis : Patient Instructions Indication: Acute pharyngitis Diabetes mellitus type 1, controlled : Patient Instructions Indication: Diabetes mellitus type 1, controlled Rt flank pain : Patient Instructions Indication: Rt flank pain Rt flank pain : Patient Instructions Indication: Rt flank pain Diabetes mellitus type 1, controlled : Patient Instructions Indication: Diabetes mellitus type 1, controlled Diabetes mellitus type 1, controlled : Patient Instructions Indication: Diabetes mellitus type 1, controlled Abnormal TSH : Patient Instructions Indication: Abnormal TSH Fatigue : Patient Instructions Indication: Fatigue Mixed hyperlipidemia : Patient Instructions Indication: Mixed hyperlipidemia ACUTE CYSTITIS : Patient Instructions Indication: ACUTE CYSTITIS Abdominal pain, acute, right upper quadrant : Patient Instructions Indication: Abdominal pain, acute, right upper quadrant Anxiety : Patient Instructions Indication: Anxiety Encounters Office Visit On: 29-Aug-2018 20:07 Encounter Diagnosis: Conjunctivitis End: 29-Aug-2018 20:13 [facility] Office Visit On: 25-Aug-2018 10:04 Encounter Reason: Follow up for chronic medical issues - The patient feels well with minor complaints (Watched her granddaugher the other day who had pink eye. She hasn't noticed any crusting in her eyes but they have fe End: 27-Aug-2018 20:57 lt very itchy. Overall nothing new, same issues she has had in the past. Hip pain and shoulder pain, seems to be increasing. Went to physical therapy which did help but biggest thing that helped her was the US and using TENZ unit.), has decreased energy level and is sleeping poorly. Patient has been compliant with instructions. Current medication use: no side effects and compliant with dosing regimen. Patient sleeps 4 hours per night. Impact of disease: emotional impact-mild. Nutrition: balanced diet and supplemental vitamins. The medical issues the patient is following up for include All identified problems below, blood sugar issues, high blood pressure, high cholesterol and other. blood pressure range :, fasting blood sugars : and weight :. Note for Follow up for chronic medical issues: using tens unit rotuinely and helping quite a bit we discussed doing followup mri- she has tramadol but doesnt help more than a couple hours - she doesnt want stronger painmeds - using benadryl for sleep- she will consider doing pain management /mri- her hips groin and into butt- right shoulder- worse ??with sitting- feels better after starts walking- but if walks extended time 15 min then hips hurt againEncounter Diagnosis: Non-smoker, Diabetes mellitus type 1, controlled, BMI 22.0-22.9, adult, Encounter for screening mammogram for breast cancer (Renamed from Encounter for screening mammogram for malignant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 is right handed- she saw rheum about bone density- they are going to do reclast- seeing gail bennett and had mammo that was abnormal so had to get us- and apparently cyst so doing more work on this - she going to retry jeet Encounter Diagnosis: Diabetes, Type I, contolled (250.01), Osteoporosis (Renamed from OP (osteoporosis)), Hyperlipidemia, Mixed (272.2), Anxiety (300.00), Hypothyroidism (244.9) [facility] Office Visit On: 07-Aug-2014 9:10 Encounter Reason: Flu Like Symptoms - The last clinic visit was 2 week(s) ago.Encounter Diagnosis: PHARYNGITIS, ACUTE (462.), SINUSITIS, ACUTE NOS (461.9) End: 07-Aug-2014 9:51 [facility] Office Visit On: 17-May-2014 15:02 Encounter Reason: Injections - The medication the patient is here to receive is other (flu).Encounter Diagnosis: NEED FOR PROPHYLACTIC VACCINATION AND INOCULATION AGAINST INFLUENZA (V04.81) End: 18-May-2014 21:54 [facility] Office Visit On: 29-Apr-2014 16:34 Encounter Reason: Follow up for chronic medical issues - The patient feels well with minor complaints (sinus), has good energy level and is sleeping well (for the most part- dog has dementia and keeps her up). Patient mauro End: 29-Apr-2014 21:21 s been compliant with instructions. Current medication use: no side effects and compliant with dosing regimen. Patient sleeps 7 hours per night. Nutrition: balanced diet, supplemental vitamins and low s alt diet. The medical issues the patient is following up for include All identified problems below, blood sugar issues, high cholesterol, hypothyroid, osteoporosis/osteopenia and other (fibroids, anxiet y, RA). Note for Follow up for chronic medical issues: she had geriatric animals that hav e passed but sick for week and half- she thinks getting some better - butalot of draiange and pressure- in fac e- doesnt feel good- bp is good- her thyroid was adjusted by endo- she is doiing 7 drops or 58305 units a week- she had egd done and was ok- she isnt having the dyspahgia nearly as freq[- had mammo already this year , [ADDITIONAL REASON] Follow up tests - Diagnostic tests include other (labs). Date: (03/04/14). , [ADDITIONAL REASON] Cold Symptoms - Symptoms include runny nose, postnasal drainage, scratchy throat , hoarseness, dry cough, facial pressure, facial pain and headache, while symptoms do not include sore throat or productive cough. Onset was sudden 1 week(s) ago. The symptoms occur constantly. The tootie ent describes this as improving. Associated symptoms do not include ear pain, wheezing, shortness of breath, nausea, vomiting, diarrhea, fever or chills. Encounter Diagnosis: Diabetes, Type I, contolled (250.01), Hypothyroidism (244.9), Anxiety (300.00), Hyperlipidemia, Mixed (272.2), Dysphagia (787.20), Osteopenia (733.90), Upper Respiratory Infection (Renamed from Infection of the upper respiratory tract) [facility] Office Visit On: 01-Jan-2014 15:10 Encounter Reason: Follow up acute care visit - The patient does not feel well.Encounter Diagnosis: Rt flank pain End: 01-Jan-2014 15:34 [facility] Office Visit On: 24-Dec-2013 9:42 Encounter Reason: Back pain - The onset of the pain has been sudden and has been occurring in a persistent pattern for weeks. The course has been constant. The pain is characterized as a dull ache. The pain is described End: 24-Dec-2013 10:41 as being located in the lower back. The pain does not radiate. There are no precipitating factors. The symptoms have no aggravating factors. The symptoms have no relieving factors. The pain has been ass ociated with arthritis of peripheral joints (RA ) and flank pain.Encounter Diagnosis: LOW BACK PAIN (Renamed from LBP (low back pain)), Rt flank pain [facility] Office Visit On: 03-Dec-2013 10:04 Encounter Reason: Injections - The medication the patient is here to receive is other (Zostavax).Encounter Diagnosis: SHINGLES,NEED FOR PROPHYLACTIC VACCINATION AND INOCULATION AGAINST (V05.8) End: 03-Dec-2013 10:26 [facility] Office Visit On: 16-Oct-2013 14:10 Encounter Reason: Follow up for chronic medical issues - The patient feels well with no complaints, has good energy level and is sleeping well (for the most part- dog has dementia and keeps her up). Patient has been comp End: 16-Oct-2013 21:52 liant with instructions. Current medication use: no side effects and compliant with dosing regimen. Patient sleeps 7 hours per night. Nutrition: balanced diet, supplemental vitamins and low salt diet. T he medical issues the patient is following up for include All identified problems below, blood sugar issues, high cholesterol, hypothyroid, osteoporosis/osteopenia and other (fibroids, anxiety, RA). Not e for Follow up for chronic medical issues: No routine labs done for today.- her sugar up because had cortiosne shot - but things coming down- father just dx with colon cancer at age 81- think troy holland-she went gluten free and feels absolutely amazing and losing weight and rheumatoid doing alot better- she said swallowing better but still issues intermittentlyEncounter Diagnosis: Diabetes, Type I, contolled (250.01), FAMILY HISTORY OF MALIGNANT NEOPLASM OF GASTROINTESTINAL TRACT (Renamed from Family history of cancer of digestive system), Dysphagia (787.20), Multiple thyroid nodules (241.1) [facility] Office Visit On: 16-May-2013 15:24 Encounter Reason: Follow up for chronic medical issues - The patient feels well with minor complaints (uti symptoms), has decreased energy level and is sleeping well. Patient has been compliant with instructions. Current End: 17-May-2013 18:10 medication use: no side effects and compliant with dosing regimen. Patient sleeps 7 hours per night. Nutrition: balanced diet, supplemental vitamins and low salt diet. The medical issues the patient is following up for include All identified problems below, blood sugar issues, high cholesterol, hypothyroid, osteoporosis/osteopenia and other (fibroids, anxiety, RA). Note for Follow up for chronic med ical issues: sugars fine before lunch but after lunch runing 250 steffen- bp low normal but no sx, [ADDITIONAL REASON] Follow up tests - Diagnostic tests include other (labs). Date:. , [ADDITIONAL REASON] UTI - The urinary symptoms are described as frequency and urgency. The symptoms have been occurring for 3 months and have been constant. The urine is described as yellow. The sympt oms have been associated with abdominal pain (suprapubic pressure) and low back pain, while the symptoms have not been associated with fever, chills, diarrhea, nausea or vomiting. Encounter Diagnosis: Diabetes, Type I, contolled (250.01), NEED FOR PROPHYLACTIC VACCINATION AND INOCULATION AGAINST INFLUENZA (V04.81), Anxiety (300.00), Urinary frequency (788.41), Hyperlipidemia, Mixed (272.2), Dysphagia (787.20), Hypothyroidism (244.9), screening , Daytime somnolence (Renamed from Daytime hypersomnolence), Fall (E888.9) [facility] Annotation/Addendum On: 22-Jan-2013 13:16 Encounter Diagnosis: Multiple thyroid nodules (241.1) End: 22-Jan-2013 13:44 [facility] Annotation/Addendum On: 17-Jan-2013 8:32 Encounter Reason: Follow up tests - Date: (thyroidalso - waiting on soco barrlabs and there are labs scanned into chart as a message (look in the envelope in the top)).Encounter Diagnosis: Abnormal TSH (796.4) End: 17-Jan-2013 8:54 [facility] Office Visit On: 12-Jan-2013 14:09 Encounter Reason: Fatigue - Symptoms include fatigue, weakness and impaired concentration. Onset was month(s) ago. The symptoms occur constantly. The patient describes this as worsening. Associated symptoms include nausea.Encounter Diagnosis: End: 12-Jan-2013 15:18 Arthritis, rheumatoid (714.0), Fatigue (780.79), Abnormal TSH (796.4), Daytime somnolence (780.54), Fall (E888.9), Cerumen impaction (380.4) [facility] Phone Encounter On: 14-Dec-2012 10:02 Encounter Diagnosis: Foot injury (959.7) End: 14-Dec-2012 10:14 [facility] Office Visit On: 14-Nov-2012 8:41 Encounter Diagnosis: Hypothyroidism (244.9), Hyperlipidemia, Mixed (272.2), Diabetes, Type I, contolled (250.01) End: 14-Nov-2012 9:30 [facility] Prescription Refill On: 27-Oct-2012 9:18 Encounter Diagnosis: Hyperlipidemia, Mixed (272.2) End: 27-Oct-2012 9:20 [facility] Office Visit On: 23-Oct-2012 15:52 Encounter Reason: Follow up for chronic medical issues - The patient feels well with minor complaints, has good energy level and is sleeping well. Patient has been compliant with instructions. Current medication use: no End: 23-Oct-2012 22:48 side effects (except didnt do bloodwork for todays apt) and compliant with dosing regimen. Patient sleeps 7 hours per night. Nutrition: balanced diet, supplemental vitamins and low salt diet. The medica l issues the patient is following up for include All identified problems below, blood sugar issues, high cholesterol, hypothyroid, osteoporosis/osteopenia and other (fibroids, anxiety, RA). Note for Fo llow up for chronic medical issues: she is doing well- taking the omeprazole routinelyand has helped her stomach pain - bp is good and weight is stable- did have pain in between shoulder blacdes a coup le times- throbbing pain- took a tramadol didnt touch it- then got gerd - xantac relieved it - she wants do any activiity when pain between shoulder blades came on - no sob - walking and sitting hurt-no pain in arms no weak or numb in arms, [ADDITIONAL REASON] Back pain - The onset of the pain has been sudden and has been occurring for 10 hours. The course has been decreasing (resolved). The pain is characterized as stabbing. The pain is described as being located in the upper back. The pain radiates to the no radiation (thru to chest). There are no precipitating factors. There has been no associated abdominal pain, dysuria, fever, hip pain or trauma. Note for Pain: Pt also had heartburn with the back pain so took a Zantac and relieved the symptoms. Encounter Diagnosis: Hyperlipidemia, Mixed (272.2), Hypothyroidism (244.9), CHEST PAIN (786.59) [facility] Phone Encounter On: 09-Aug-2012 11:02 Encounter Diagnosis: Abdominal Pain,RUQ(789.01) End: 09-Aug-2012 11:04 [facility] Office Visit On: 25-Jul-2012 10:57 Encounter Reason: Follow up tests - Diagnostic tests include ultrasound (gallbladder and pelvic). Date: (07/07/12). Current symptoms include abdominal pain (has improved but still slightly). Note for Discuss procedure r End: 25-Jul-2012 12:21 esults: within 15 minutes of eating sat night- had fried chicken gravy- - if not eating she feels fine - her uti pain gone- still getting right upper quad pain - no diarrhea lately has in past and definitley bloating Encounter Diagnosis: ACUTE CYSTITIS (595.0), Abdominal Pain,RUQ(789.01), Fibroids (218.9), Hemangioma of liver (228.04) [facility] Phone Encounter On: 03-Jul-2012 18:59 Encounter Diagnosis: Abdominal Pain,RUQ(789.01) End: 03-Jul-2012 19:00 [facility] Annotation/Addendum On: 26-Jun-2012 10:29 Encounter Diagnosis: Urinary frequency (788.41) End: 26-Jun-2012 10:32 [facility] Office Visit On: 23-Jun-2012 10:02 Encounter Reason: Abdominal pain - The onset of the pain has been gradual and has been occurring in a persistent pattern for 3 months. The course has been increasing. The pain is described as a moderate dull ache and pre End: 25-Jun-2012 20:37 ssure sensation. The pain is described as being located in the right upper quadrant. The pain radiates to the left upper quadrant. The symptoms are aggravated by meals (1/2 to 1 hour after eating). The symptoms have no relieving factors. There has been no associated bloating, dark urine, diarrhea, dysuria, fever, nausea, vaginal bleeding, vaginal discharge or vomiting. 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- bowels are regular- no blood- no vomit- sometimes little nausea- appetite ok- rarely takes celebrex or nsaids - she took a pepcid - didnt make much difference- some back in low thoracic area- has been xrayed , [ADDITIONAL REASON] Dysphagia - Note for Dysphagia: for at least couple months trouble swallowing- some gerd- no odynophagia- just feels like things getting stuck Encounter Diagnosis: Abdominal Pain,RUQ(789.01), Dysphagia (787.20) [facility] Office Visit On: 07-Apr-2012 13:41 Encounter Reason: Follow up Meds - The patient feels well with no complaints, has good energy level and is sleeping poorly (just lately with personal life- new job position, interviews, ect...). Patient has been complian End: 07-Apr-2012 14:47 t with instructions. Current medication use: no side effects and compliant with dosing regimen. Patient sleeps 6 hours per night. Note for Follow up Meds: Feels much much better with the cymbalta, feels tremendously different in a good way. Encounter Diagnosis: PREVENTION OF TETANUS (V03.7), PREVENTION OF PNEUMONIA (V03.82), Hyperlipidemia, Mixed (272.2), Anxiety (300.00) [facility] Office Visit On: 23-Feb-2012 10:58 Encounter Reason: new patient female physical - Last seen between 3-6 months ago. General health: feels well with minor complaints (thinks hormone related, but has much more anxiety than normal- moodier and more irritabl End: 24-Feb-2012 21:48 e.), has decreased energy level and is sleeping well. The patient's appetite is normal. Nutrition: normal/adequate. Exercises 4 days per week. Sleeps on average 7 hours per night. Normal bowel and bladd er habits. Safety measures include appropriate use of safety belts and home smoke detectors. Current emotional problems include anxiety. screening, colonoscopy, screening, mammography and screening, Pap smear. 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- she didnt do - paxil made her feel terrible- zoloft made her tired - never tried cymbalta ??and is willing - she sees Jasvir Cardoza for her ra and on orencia and doing well- and mauro s appt in march with Guera Clifford- at [facility]- no target organ damge and dx age 8 with dm- and ra was diagnosed 44Encounter Diagnosis: Arthritis, rheumatoid (714.0), Anxiety (300.00), Osteopenia (733.90), Hyperlipidemia, Mixed (272.2), Hypothyroidism (244.9), Diabetes, Type I, contolled (250.01), Menopause (627.2) [facility] Payers Sandy GRIDER/REDD [employer]ENNING; a guarantor
--- OUTSIDE RECORDS SUMMARY | 2018-10-30 02:08 | XMS RPT_ITS | Continuity of Care Document ---
:1960 Author Organization [facility] Address [address] [facility] [address] [place] [address] Phone Care Team Providers Name Role Phone Karin Khanna DO Unavailable Bernardo CM, Dr. Deysi Mccarty Unavailable Aguilar Bullock Unavailable Lars Wayne MD Unavailable Billy Nelson MD Unavailable Leola Madsen Unavailable Unavailable MARILU Burkett Unavailable Unavailable María Vasquez Unavailable Unavailable Leigh Ann Herrera LPN Unavailable Unavailable Unavailable Unavailable Problems Name Dates Details Abortions/Miscarriages Comments: 1 Status: Active Acquired hypothyroidism (E03.9, 244.9) Status: Active Anxiety (F41.9, 300.00) Status: Active Anxiety and depression (F41.9, 300.00) Status: Active Arthritis, rheumatoid (M06.9, 714.0) Status: Active Bilateral hip pain (M25.551, 719.45) Status: Active Bilateral shoulder pain (M25.511, 719.41) Status: Active BMI 22.0-22.9, adult (Z68.22, V85.1) Status: Active Body mass index (BMI) 23.0-23.9, adult (Z68.23, V85.1) Status: Active Cough (R05, 786.2) Comments: needs atypicla coverage and better staph and strept ? bronchitis now early [pneumonia on amoxicillin will add zapk if not better CXR and follow up tuesday Status: Active Deliveries (Parity) Comments: 2 Status: Active Diabetes mellitus type 1, controlled (E10.9, 250.01) Comments: sees ENdocrinology - Dr Burrell in [place] Status: Active Dysphagia, unspecified dysphagia (787.20) Status: Active Encounter for immunization (Z23, V03.89) Status: Active Encounter for screening mammogram for breast cancer (Renamed from Encounter for screening mammogram for malignant neoplasm of breast) (Z12.31, V76.12) Comments: october Status: Active Encounter for screening mammogram for breast cancer (Renamed from Encounter for screening mammogram for malignant neoplasm of breast) (Z12.31, V76.12) Status: Active FAMILY HISTORY OF MALIGNANT NEOPLASM [...] too Status: Active Mixed hyperlipidemia (E78.2, 272.2) Status: Active Multinodular goiter (E04.2, 241.1) Comments: [...] 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 sees [facility] vision cliniic every 2months Status: Active 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, 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 Osteopenia (M85.80, 733.90) Comments: she is working thru with rheum to get reclast Status: Active Osteoporosis (M81.0, 733.00) Comments: she is supposed to get reclast thru her endocrine Status: Active Osteoporosis (Renamed from OP (osteoporosis)) (M81.0, 733.00) Status: Active Otitis Externa (380.10) Comments: stay on antiobitocs and drops Status: Active Pneumococcal vaccination given (Z23, V06.6) Comments: Lot:[id number]:04/26/18Dose:0.5mgRoute:imSite:herminia wilsonGimurray By:CLIFTON signed Status: Active Postmenopausal (Renamed from [...] days Quantity: 60 {Capsule} Refills: 0 Ordered:24-Dec-2013 Rohinimilvia BOBVanita Start : 24-Dec-2013 Active FLAX SEED OIL, 1000MG (Oral Capsule) 1 Daily (1000 MG) Active FOLIC ACID, 1MG (Oral Tablet) 1 Tablet Daily for 30 days Quantity: 30 {Tablet} Refills: 0 Ordered:22-Oct-2016 María Vasquez Start : 23-Feb-2012 Active LOSARTAN POTASSIUM, 25MG (Oral Tablet) 1 tab Tablet qd for 30 days Quantity: 30 {Tablet} Refills: 3 Ordered:16-May-2013 Fast Karin HARRIS DO, Debra A Start : 16-May-2013 Active LOVAZA, 1GM (Oral Capsule) 2 (two) Capsule BID for 30 days Quantity: 120 {Capsule} Refills: 3 Ordered:14-Nov-2012 Keena Thomas DO Start : 14-Nov-2012 Active Metanx 3-90.314-2-35 MG Oral Capsule 1 (one) Capsule Capsule bid for 0 days Quantity: 60 {Capsule} Refills: 0 Ordered:05-Aug-2017 MARILU Burkett Start : 20-Jun-2017 Active MILK THISTLE XTRA (Oral Capsule) 1 Daily Active NIASPAN, 500MG (Oral Tablet Extended Release) 1 (one) Tablet ER qhs for 30 days Quantity: 30 {Tablet_ER} Refills: 3 Ordered:13-Apr-2013 Fast Karin HARRIS DO, Debra A Start : 13-Apr-2013 Active Comments:new dose NOVOLOG FLEXPEN, 100UNIT/ML (Subcutaneous Solution) 3 (three) Solution 4 units q am, 4-5 at noon and 4-5 q evening for 0 days Quantity: 5 {Solution} Refills: 0 Ordered:16-May-2013 Fast DOKarin DO, Debra A Start : 16-May-2013 Active Omeprazole 20 [...] days Quantity: 20 {Tablet} Refills: 0 Ordered:07-Jul-2012 Colton HARRIS, Karin Cheng DO Start : 26-Jun-2012 End : 06-Jul-2012 Inactive [...] days Quantity: 90 {Tab_Sublingual} Refills: 1 Ordered:12-Jan-2013 Leola Madsen Start : 09-Aug-2012 End : 12-Jan-2013 Inactive Nasonex 50 MCG/ACT Nasal Suspension 2 (two) Puff Puff daily for 0 days Quantity: 1 {Bottle} Refills: 0 Ordered:26-Apr-2016 Quin Randolph LPN Start : 07-Aug-2014 End : 26-Apr-2016 Inactive Promethazine HCl 25 MG Oral Tablet 1 (one) Tablet Tablet q8hrs prn for 0 days Quantity: 15 {Tablet} Refills: 0 Ordered:25-Aug-2018 Karin Khanna DOarpit , Karin A Start : 28-Mar-2018 End : 25-Aug-2018 Inactive TraZODone HCl 50 MG Oral Tablet 1 (one) Tablet qhs prn for 0 days Quantity: 30 {Tablet} Refills: 3 Ordered:14-Feb-2018 Karin Khanna DO DO, Karin A Start : 11-Nov-2017 End : 14-Feb-2018 Inactive VITAMIN B COMPLEX (Oral Tablet) 1 Daily Inactive ACTONEL, 150MG (Oral Tablet) 1 Tablet monthly for 30 days Quantity: 1 {Tablet} Refills: 0 Ordered:23-Oct-2012 Karin Khanna DO, DO Karin A Start : 23-Oct-2012 End [...] days Quantity: 1 {QS} Refills: 2 Ordered:29-Apr-2014 Karin Khanna DOarpit Karin A Start : 29-Apr-2014 End : 05-Aug-2017 Discontinued Comments:This order discontinued per [employer]. SYNTHROID, 150MCG (Oral Tablet) uad Tablet qd and 1/2 tab on Sundays for 0 days Quantity: 90 {Tablet} Refills: 0 Ordered:16-May-2013 Karin Khanna DOarpit DO, Karin A Start : 16-May-2013 End [...] Dates Details Septra DS *ANTI-INFECTIVE AGENTS - MISC.* (Allergy) Status: Active Comments: vomiting Past Medical [...] Status: Inactive as of 26-Apr-2016 Vaccine for ffwopzdxgm-ndzbupp-copzlmxvq with poliomyelitis (Z23, V06.3) Status: Inactive as [...] Ligation Completed Comments: 1996 Date Value Details 16-Aug-2018 PT D/C Summary (1) Result: Comments: See Note; NOTES: [facility] [address] [place] [address] [address] [place] [address] / REHABILITATION SERVICES DISCH ARGE SUMMARY MR#: [id number] Acct: [id number] Name: CHELSEA HENNING Rep #: [id number] : 1960 57 From: Kiki TAPIAT Referring DrMarquis: Karin Khanna DO Status: REG [...] in available range, elbow 4+/5, Wrist: 4+/5, Nicu Rn: diminshed but equal the other side. Reflex: [...] Progress: Progressing - Plan Plan: Discharge to [facility] TENS unit - D/C Information If there are questions or concerns regarding this patient's physical therapy, please feel free to call me at [phone]. Thank you for the referral of this patient. Kiki Quezada, DPT <Electronically signed by Kiki Thomas DPT> 08/16/18 0929 CC: Karin Khanna DO ELR Signed 28-Jul-2018 Re-Evaluation - PT (1) Result: Comments: See Note; NOTES: [facility] [address] [place] [address]. [address] [place] [address] Fax REEVALUATION / MEDICARE RECERTI FICATION PHYSICAL THERAPY MR#: [id number] Acct: [id number] Name: CHELSEA HENNING Rep #: [id number] : 1960 57 From: Kiki Thomas DPT Referring DrMarquis: Karin Khanna DO Status: REG RCR Insurance: ANT HEM SELF PAY INSURANCE Karin Khanna DO, It has been my pleasure to treat CHELSEA HENNING over the last 8 visits for Cervical Radiculopathy. Please see the progress note below for an update on the [facility] therapy plan of care! Subjective: Patient reports [...] in available range, elbow 4+/5, Wrist: 4+/5, Nicu Rn: diminshed but equal the other side. Reflex: [...] do not hesitate to contact me at [phone] by phone or if you have questions or concerns regarding this new plan of care! Sincerely, Kiki Thomas, DPT <Elec tronically signed by Kiki Thomas DPT> 07/28/18 1058 CC: Karin Khanna DO ELR Signed For Medicare only, by signing this I certify the plan of care. Physicians Signature Date 10-Jul-2018 Inital Evaluation (1) - PT Result: Comments: See Note; NOTES: [facility] Physical [facility] [address] [place] [address]. [address] [place] [address] Fax REHABILITATION SERVICES INITIAL EVALUATION MR#: [id number] Acct: [id number] Name: CHELSEA HENNING Rep #: [id number] : 1960 57 From: Kiki Thomas DPT Referring Dr.: Karin Khanna DO Status: REG RCR Insurance: ANTHEM SELF PAY I NSURANCE Patient's Visit Information CHELSEA HENNING is a 57 year old F referred to Physical Therapy by Karin Khanna DO with a diagnosis of Cervical Radiculopathy. Date of Evaluation: 07/10/18 Ry han Therapist: Kiki Thomas - Visit Plan Frequency: 3x /Week Duration: [...] her neck. Tried to have massage at [facility] which made it feel better but then had another 1 and felt ho rrible by another massage therapist then back to [facility] then it was okay again. Swathi who is a PLUCK SEPARATOR told her to hold off on the [...] in available range, elbow 4/5, Wrist: 4/5, Nicu Rn: diminshed but eq ual the other side. [...] to be FAXED BACK to us at [phone] for Medicare purposes. For Medicare only, by signing this I certify the plan of care. Please let me know if there are questions or concerns regarding this plan of care. Physician Signature: Date: <Electronica ll signed by Kiki Thomas DPT> 07/10/18 1051 CC: Karin Khanna DO ELR Signed 21-Jun-2018 Cerv Spine 4 or 5 Views Result: Comments: See Note; NOTES: [facility] Imaging Services [address] [place] [address] Cerv Spine 4 or 5 Views MR#: [id number] Acct: [id number] Name: CHELSEA HENNING Rep #: [id number] : 1960 F 57 From: Silvano Decker MD PCP: Karin Khanna DO Status: REG CLI Study: Cerv Spine 4 or 5 Views Date of Exam: 06/21/18 Exam# [id number] Ordering Dr: Karin Khanna DO STUDY: X-RAY [...] Service support , CC: Karin Khanna DO Gate Clerk: Signed 21-Jun-2018 Ribs Uni Min 3V w/PA Chest Result: Comments: See Note; NOTES: [facility] Imaging Services [address] [place] [address] Ribs Uni Min 3V w/PA Chest MR#: [id number] Acct: [id number] Name: CHELSEA HENNING Rep #: [id number] : 1960 F 57 From: Silvano Decker MD PCP: Karin Khanna DO Status: REG CLI Study: Ribs Uni Min 3V w/PA Chest Date of Exam: 06/21/18 Exam# [id number] Ordering Dr: Karin Khanna DO STUDY: X-R [...] Service support , CC: Karin Khanna DO Gate Clerk: Signed 01-Nov-2017 SCREENING MAMM (CAD), BILAT Result: Comments: See Note; NOTES: [facility] Imaging Services [address] [place] [address] SCREENING MAMM (CAD), BILAT MR#: [id number] Acct: [id number] Name: JUVENCIOILAN THOMPSONMikey Cutler Rep #: [id number] : 1960 F 56 From: Chris Bullock MD PCP: Karin Khanna DO Status: REG CLI Study: SCREENING MAMM (CAD), BILAT Date of Exam: 11/01/17 Exam# [id number] Ordering Dr: Karin Khanna DO MAMMOGRAPH Y [...] Service support , CC: Karin Khanna DO Gate Clerk: Signed 01-Nov-2017 Thyroid Result: Comments: See Note; NOTES: [facility] Imaging Services [address] [place] [address] Thyroid MR#: [id number] Acct: [id number] Name: CHELSEA HENNING Rep #: [id number] : [birth year] F 56 From: Rajeev Farias DO PCP: Karin Khanna DO Status: REG CLI Study: Thyroid Date of Exam: 11/01/17 Exam# [id number] Ordering Dr: Karin Khanna DO STUDY: THYROID [...] Signed: Aaron Fraire at 16:25 EDT Tel [phone], Service support , CC: Karin Khanna DO Gate Clerk: Signed 26-Oct-2017 Stress Report Result: Comments: See Note; NOTES: [facility] Cardiovascular Services [address] [place] [address] MR#: [id number] Acct: [id number] Name: CHELSEA HENNING Rep #: [id number] : 1960 56 From: Romel Martinez MD Primary Care: Karin Khanna DO Status: REG CLI Ordering Dr: Sex: F [...] Conclusion: Normal pharmacologic myocardial perfusion stress test. 10/26/17919 <Electronically signed by Romel Martinez MD> Date Romel Martinez MD CC: Karin Khanna DO Date Dictated: 10/26/17913 Date Transcribed: 10/26/17913 Gate Clerk: CO Signed 08-Apr-2017 Foot min 3 Views Result: Comments: See Note; NOTES: [facility] Imaging Services [address] [place] [address] Foot min 3 Views MR#: [id number] Acct: [id number] Name: CHELSEA HENNING Rep #: [id number] : 1960 F 56 From: Rajiv Shanks MD PCP: Karin Khanna DO Status: REG CLI Study: Foot min 3 Views Date of Exam: 04/08/17 Exam# [id number] Ordering Dr: Karin Khanna DO STUDY: X-RAY - LEFT FOOT CLINIC AL: Female, 56 years old. Possible stress fx, no known injury, hx RA, OA, previous fx 5th TECHNIQUE: 3 view(s) of the foot. COMPARISON: [...] support , Fax CC: Karin Khanna DO Gate Clerk: Signed 02-Mar-2017 Thoracic Spine 3 Views Result: Comments: See Note; NOTES: [facility] Imaging Services [address] [place] [address] [place] 4d Thoracic Spine 3 Views MR#: [id number] Acct: [id number] Name: CHELSEA HENNING Rep #: [id number] : 1960 F 56 From: Yoan Gray MD PCP: Karin Khanna DO Status: REG CLI Study: Thoracic Spine 3 Views Date of Exam: 03/02/17 Exam# [id number] Ordering Dr: Karin Khanna DO STUDY : [...] Service support , CC: Karin Khanna DO Gate Clerk: Signed 23-Feb-2017 NCS and/or EMG Patient Result: Comments: See Note; NOTES: [facility] Pulmonary Services/Neurology [address] [place] [address] MR#: [id number] Acct: [id number] Name: CHELSEA HENNING Rep #: [id number] : 04/1961 56 From: Radha Hoover MD Referring Dr: Dione Guerra PLUCK SEPARATOR-C Status: REG CLI Ordering Dr: Date: Location: [facility] Sex: F C NCS and/or EMG Patient [...] Radha Hoover; Karin Khanna DO Date Dictated: 02/23/17833 Date Transcribed: 02/23/17833 Gate Clerk: CORBIN Signed 03-Feb-2017 Abdomen Limited Result: Comments: See Note; NOTES: [facility] Imaging Services [address] [place] [address] Verd[place] 4d Abdomen Limited MR#: [id number] Acct: [id number] Name: CHELSEA HENNING Rep #: [id number] : 1960 F 56 From: Salvador Pike MD PCP: Karin Khanna DO Status: REG CLI Study: Abdomen Limited Date of Exam: 02/03/17 Exam# [id number] Ordering Dr: Karin Khanna DO STUDY: ABDOMINAL [...] Salvador Pike MD at 14:21 EDT Tel [phone], Service support , CC: Karin Khanna DO Gate Clerk: Signed 10-Nov-2016 Breast w/o and/or W Cont Bilat Result: Comments: See Note; NOTES: [facility] Imaging Services [address] [place] [address] [place] 4d Breast w/o and/or W Cont Bilat MR#: [id number] Acct: [id number] Name: CATHERINE HENNING E Rep #: [id number] : 1960 F 55 From: Terrell Schroeder MD PCP: Karin Khanna DO Status: REG CLI Study: Breast w/o and/or W Cont Bilat Date of Exam: 11/10/16 Exam# [id number] Ordering Dr: Karin Khanna DO STUDY: BILATERAL [...] MD at 16:15 EDT , Service support [phone], CC: Karin Khanna DO Gate Clerk: Signed 29-Oct-2016 Breast Limited Unilateral Result: Comments: See Note; NOTES: [facility] Imaging Services [address] [place] [address] [place] 4d Breast Limited Unilateral MR#: [id number] Acct: [id number] Name: CHELSEA HENNING Rep #: [id number] : 1960 F 55 From: Salvador Pike MD PCP: Keena Thomas DO Status: REG CLI Study: Breast Limited Unilateral Date of Exam: 10/29/16 Exam# [id number] Ordering Dr: Zak Khanna DO STUDY: ULTRASOUND [...] Pike MD 2 at 15:27 EDT Tel [phone], Service support [phone], CC: Karin Khanna DO; Keena Thomas DO Gate Clerk: Signed 29-Oct-2016 DIAG MAMM W/CAD, BILAT Result: Comments: See Note; NOTES: [facility] Imaging Services [address] [place] [address] [place] 4d DIAG MAMM W/CAD, BILAT MR#: [id number] Acct: [id number] Name: CHELSEA HENNING Rep #: [id number] : 1960 F 55 From: Salvador Pike MD PCP: Keena Thomas DO Status: REG CLI Study: DIAG MAMM W/CAD, BILAT Date of Exam: 10/29/16 Exam# [id number] Ordering Dr: Karin Khanna DO MAMMOGRAPHY - [...] Helio Pike MD at 14:53 EDT Tel [phone], Service support [phone], CC: Karin Khanna DO; Keena Thomas DO Gate Clerk: Signed 26-Oct-2016 Thyroid Result: Comments: See Note; NOTES: [facility] Imaging Services [address] [place] [address] [place] 4d Thyroid MR#: [id number] Acct: [id number] Name: CHELSEA HENNING Rep #: [id number] D OB: 1960 F 55 From: Windy Hill MD PCP: Karin Khanna DO Status: REG CLI Study: Thyroid Date of Exam: 10/26/16 Exam# [id number] Ordering Dr: Karin Khanna DO STUDY: THYROID [...] upper pole nodule not substantially changed on keob-ot-hlua comparison from November 23, 2013. 5 x 4 x 3 mm solid upper pole nodule of the left thyroid not substantially changed on saiq-dc-rqaq comparison from November 23, 2013. Electronically Signed: Windy Hill MD at 15:40 EDT , Service support , CC: Karin Khanna DO Gate Clerk: Signed 30-Sep-2016 Dexa Bone Density Study (HP) Result: Comments: See Note; NOTES: [facility] Imaging Services [address] [place], [place] [address] [place] [address] Verdana 4d Dexa Bone Density Study (HP) MR#: [id number] Acct: [id number] Name: CHELSEA HENNING Rep #: [id number] : 1960 F 55 From: Salvador Pike MD PCP: Keena Thomas DO Status: REG CLI Study: Dexa Bone Density Study () Date of Exam: 09/30/16 Exam# [id number] Ordering Dr: Linnea Ricardo, Out o. STUDY: DUAL ENERGY X-RAY ABSORPTIOMETRY / DXA [...] Salvador Pike MD at 13:49 EST Tel [phone], Service support [phone], Fax CC: Dione Guerra; Keena Thomas DO; OUT OF TOWN DOCTOR Gate Clerk: Signed 16-Sep-2016 Emergency Department Summary Result: Comments: See Note; NOTES: [facility] Medical Records Department [address] [place] [address] Emergency Department Summary MR#: [id number] Acct: [id number] Name: CHELSEA HENNING He Rep #: [id number] : 1960 55 From: Billy Varela DO [...] plaster, AP splint and she was given [place]. Follow up will be with orthopedics. CLINICAL IMPRESSION: 1. Right distal radius fracture. 2. Splint by physician. Billy Varela DO T: NTS JOB: [id number] 09/16/16 2335 <Electronically signed by Billy Varela DO> Date Billy Varela DO Cosigner Signature (If Indicated): Date CC: Keena Thomas DO Date Dictated: 09/16/161905 Date Transcribed: 09/16/161905 Gate Clerk: Signed 16-Sep-2016 Discharge Instruction Result: Comments: See Note; NOTES: [facility] Medical Records Department [address] [place] [address] Discharge Instruction 09/16/161909 MR#: [id number] Acct: [id number] Name: CHELSEA HENNING Rep #: [id number] : 1960 55 From: Billy Varela DO [...] your Primary Care Provider. Call [facility] ([phone]) or report to the closest Emergency Room. Call 911 if necessary. 09/16/16 1911 & amp;#60;Electronically signed by Billy Varela DO> Date Billy Varela DO Cosigner Signature (If Indicated): Date CC: Keena Thomas DO 16-Sep-2016 Discharge Instruction Result: Comments: See Note; NOTES: [facility] Medical Records Department [address] [place] [address] Discharge Instruction 09/16/161900 MR#: [id number] Acct: [id number] Name: CHELSEA HENNING Rep #: [id number] : 1960 55 From: Billy Varela DO PCP: Keena Thomas DO Status: PRE ER ED Disposition - Plan for ED Patient: Disposition: Home or Assisted Living Chief Complaint: U pper Extremity Injury Instructions: ED Fx Wrist General Prescriptions: Hydrocodone Bitart/Apap 5-325 [[place] 5/325] 1 - 2 tablet PO Q4H [...] your Primary Care Provider. Call [facility] ([phone]) or report to the closest Emergency Room. Call [phone] if necessary. 09/16/161901 <Electronically signed by Billy [place] DO> Date Billy Varela DO Cosigner Signature (If Indicated): Date CC: Keena Thomas DO 16-Sep-2016 Wrist min 3 Views Result: Comments: See Note; NOTES: [facility] Imaging Services [address] [place] [address] Verdana 4d Wrist min 3 Views MR#: [id number] Acct: [id number] Name: CHELSEA HENNING Rep #: [id number] : 1960 F 55 From: Renato Maria MD PCP: Keena Thomas DO Status: REG ER Study: Wrist min 3 Views Date of Exam: 09/16/16 Exam# [id number] Ordering Dr: Billy Varela DO STUDY: X-RA [...] MD at 19:21 EST , Service support [phone], CC: Billy Varela DO; Keena Thomas DO Gate Clerk: Signed 13-Sep-2016 Chest PA and Lateral Result: Comments: See Note; NOTES: [facility] Imaging Services [address] [place] [address] Verdana 4d Chest PA and Lateral MR#: [id number] Acct: [id number] Name: CHELSEA HENNING Rep # : [id number] : 1960 F 55 From: Salvador Pike MD PCP: Keena Thomas DO Status: REG CLI Study: Chest PA and Lateral Date of Exam: 09/13/16 Exam# [id number] Ordering Dr: Keena Thomsa DO STUDY: X-RAY CHEST REASON FOR EXAM: [...] Salvador Pike MD at 11:36 EST Tel [phone], Service support [phone], CC: Keena Thomas DO Gate Clerk: Signed 29-Mar-2016 Discharge Instruction Result: Comments: See Note; NOTES: [facility] Medical Records Department [address] [place] [address] Discharge Instruction 03/27/16 1521 MR#: [id number] Acct: [id number] Name: CHELSEA HENNING Rep #: [id number] : 1960 55 From: Marques Hutchison MD [...] or any unexpected problems, contact your doctor. [facility] ([phone]) or report to the closest Emergency Room. Call 911 if necessary. 03/29/16 0715 <Electronically signed by Marques Hutchison MD> Date Marques Hutchison MD Cosigner Signature (If Indicated): Date CC: Keena Thomas DO 29-Mar-2016 Emergency Department Summary Result: Comments: See Note; NOTES: [facility] Medical Records Department [address] [place] [address] Emergency Department Summary MR#: [id number] Acct: [id number] Name: CHELSEA HENNING Rep #: [id number] : 1960 55 From: Marques Hutchison MD PCP: Keena Thomas DO Status: DEP ER DATE OF SERVICE: 03/27/2016 CHIEF COMPLAINT: [...] fall. DISPOSITION: Discharge. Marques Hutchison MD T: NTS JOB: [id number] 03/29/16 0715 <Electronically signed by Marques Hutchison MD> Date Marques Hutchison MD Cosigner Signature (If Indicated): Date CC: Keena Thomas Date Dictated: 03/09 1524 Date Transcribed: 03/27/16 152 Gate Clerk: Signed 27-Mar-2016 Sinus/Facial Bone Result: Comments: See Note; NOTES: [facility] Imaging Services [address] [place] [address] Verdana 4d Sinus/Facial Bone MR#: [id number] Acct: [id number] Name: CHELSEA HENNING Rep #: [id number] : 1960 F 55 From: Manolo Rodriguez MD PCP: Keena Thomas DO Status: REG ER Study: Sinus/Facial Bone Date of Exam: 03/27/16 Exam# [id number] Ordering Dr: Marques Hutchison MD STUDY: CT [...] at 15:14 EDT Tel , Service support [phone], CC: Keena Thomas DO; Marques Hutchison MD Gate Clerk: Signed 27-Mar-2016 Wrist min 3 Views Result: Comments: See Note; NOTES: [facility] Imaging Services [address] [place] [address] Verdana 4d Wrist min 3 Views MR#: [id number] Acct: [id number] Name: CHELSEA HENNING Rep #: [id number] : 1960 F 55 From: Manolo Rodriguez MD PCP: Keena Thomas DO Status: REG ER Study: Wrist min 3 Views Date of Exam: 03/27/16 Exam# [id number] Ordering Dr: aMrques Hutchison MD STUDY: X-R AY - RIGHT [...] at 15:15 EDT Tel , Service support [phone], Fax CC: Keena Thomas DO; Marques Hutchison MD Gate Clerk: Signed 09-Dec-2015 Chest PA and Lateral Result: Comments: See Note; NOTES: [facility] Imaging Services [address] [place] [address] Verdana 4d Chest PA and Lateral MR#: [id number] Acct: [id number] Name: CHELSEA HENNING Rep #: [id number] : 1960 F 55 From: Halima Hook MD PCP: Karin Khanna DO Status: REG CLI Study: Chest PA and Lateral Date of Exam: 12/09/15 Exam# [id number] Ordering Dr: Karin Khanna STUDY: X-RAY CHEST [...] at 11:50 EDT Tel , Service support [phone], RAD/Chest PA and Lateral IMPRESSION: There is no acute chest disease. Electronically Signed: Halima Hook MD at 11:50 EDT Tel , Service support [phone], CC: Karin Khanna DO Gate Clerk: Signed 05-Mar-2015 Upper Ext Joint Only W/WO Cont Result: Comments: See Note; NOTES: [facility] [facility] Imaging Services [address] [place] [address] MRI Report MR#: [id number] Acct: [id number] Name: CHELSEA HENNING Rep #: [id number] OB: 1960 F 54 From: Manolo James MD PCP: Karin Khanna DO Status: REG CLI Study: Upper Ext Joint Only W/WO Cont Date of Exam: 03/05/15 Exam# [id number] Ordering Dr: Lashonda Butler STUDY: MRI LE [...] at 11:09 EDT Tel , Service support [phone], CC: LASHONDA BUTLER; Venus Khanna DO Gate Clerk: Signed 05-Feb-2015 OT Discharge Summary Result: Comments: See Note; NOTES: [facility] Occupational Therapy [facility] [address] [place], [place] [address] Fax REHABILITATION SERV ICES DISCHARGE SUMMARY MR#: [id number] Acct: [id number] Name: CHELSEA HENNING Rep #: [id number] : 1960 54 From: Citlaly Moctezuma Referring Dr.: LASHONDA BUTLER Status: DIS RCR Eval Date: [...] elbow and soreness in left wrist, decreased azure principal solution specialist and pinch strength in left hand, decreased [...] degrees, left elbow flexion 135 degrees, left azure principal solution specialist st rength 45 pounds. Chelsea has currently plateaued Her strength has greatly improved and she is using the static progressive brace consistently at home. The plan is to have her keep using the brace until so she no longer feels a stretch. Therefore, she will be discharged from occupational therapy. Citlaly Moctezuma, OTR/L T: NTS JOB: [id number] <Electronically signed by Citlaly Merino laura > 02/05/15 1304 CC: Signed 29-Nov-2014 Lumbar Spine 2 or 3 Views Result: Comments: See Note; NOTES: [facility] Imaging Services [address] [place] [address] Radiology Report MR#: [id number] Acct: [id number] Name: JUVENCIOCHELSEA Cutler Rep #: [id number] : 1960 F 54 From: Renato Maria MD PCP: Karin Khanna DO Status: REG CLI Study: Lumbar Spine 2 or 3 Views Date of Exam: 11/29/14 Exam# [id number] Ordering Dr: JASVIR CARDOZA STUDY: X-RAY - LUMBAR SPINE REASON FOR [...] MD at 10:23 EDT , Service support [phone], CC: Karin Khanna DO; JASVIR CARDOZA Gate Clerk: Signed 04-Sep-2014 Dexa Bone Density Study (HP) Result: Comments: See Note; NOTES: [facility] Services [address] [place] [address] Bone Density Report MR#: [id number] Acct: [id number] Name: CHELSEA HENNING Rep #: [id number] : 1960 F 53 From: Salvador Pike MD PCP: Karin Khanna DO Status: REG CLI Study: Dexa Bone Density Study (HP) Date of Exam: 09/04/14 Exam# [id number] Ordering Dr: Karin Khanna DO STUDY: DUAL [...] Densitometry http://www.iscd.org 3. National [employer]opor[employer] Foundation http://www.nof.org Electron ically Signed: Salvador Pike MD at 12:33 EST Tel [phone], Service support [phone], CC: Karin Khanna DO Gate Clerk: Signed 04-Sep-2014 Dexa Bone Density Study (HP) Result: Comments: See Note; NOTES: [facility] Imaging Services [address] [place] [address] Bone Density Report MR#: [id number] Acct: [id number] Name: CHELSEA HENNING Rep #: [id number] : 1960 F 53 From: Salvador Pike MD PCP: Karin Khanna DO Status: REG CLI Study: Dexa Bone Density Study (HP) Date of Exam: 09/04/14 Exam# [id number] Ordering Dr: Karin Khanna DO ADDENDUM by Salvador Pike MD on 09/10/14 at 1026 ADDENDUM This is an addendum report Com parison is made with prior outside examination dated February 04, 2012. Since prior examination, there has been a decrease in the bone density of the proximal left femur of 7.9%. Electronically Signed: Salvador Pike MD at 10:26 EST Tel [phone], Service support [phone], 09/10/14 1026 Date cc: Karin Colton HARRIS * Signed STUDY: DUAL ENERGY X-RAY ABSORPTIOMETRY [...] Salvador Pike MD at 12:33 EST Tel [phone], Service support [phone], CC: Karin Khanna DO Gate Clerk: Signed 16-Jul-2014 Initial Evaluation - OT Result: Comments: See Note; NOTES: [facility] Occupational Therapy [facility] [place] [address] Fax REHABILITATION SERVI [facility] INITIAL EVALUATION MR#: [id number] Acct: [id number] Name: CHELSEA HENNING Rep #: [id number] : 1960 53 From: Citlaly Moctezuma Referring DrMarquis: LASHONDA BUTLER Status: REG R Insurance: A [facility] Date: DATE OF SERVICE: This 53-year-old female [...] visits. 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 At the time of [...] and thumb movements were within functional limits. Nicu Rn strength in right hand was 50 degrees [...] w and soreness in left wrist, decreased azure principal solution specialist and pinch strength in left hand, decreased [...] by discharge. 2. 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 3. [...] to increase range of motion. Citlaly Moctezuma, OTR/L T: NTS JOB: [id number] <Electronically signed by Citlaly Moctezuma > 1 09/16/13 0852 CC: Signed For Medicare only, by signing this I certify the plan of care. Physicians Signature Date 01-Jan-2014 Abdomen/Pelvis without Cont Result: Comments: See Note; NOTES: [facility] Imaging Services [address] [place] [address] CAT Scan Report MR#: [id number] Acct: [id number] Name: CHELSEA HENNING Rep #: [id number] : 1960 F 53 From: Sid Conklin MD PCP: Karin Khanna DO Status: REG CLI Study: Abdomen/Pelvis without Cont Date of Exam: 01/01/14 Exam# [id number] Ordering Dr: Roseanne Liu MD STUDY : [...] at 16:49 EDT Tel , Service support [phone], CC: Roseanne Liu MD; Karin Khanna DO Gate Clerk: Signed 27-Dec-2013 Kidney and Bladder Result: Comments: See Note; NOTES: [facility] [address] [place] [address] Ultrasound Report MR#: [id number] Acct: [id number] Name: CHELSEA HENNING Rep #: [id number] : 1960 F 53 From: Rajeev Farias DO PCP: Karin Khanna DO Status: REG CLI Study: Kidney and Bladder Date of Exam: 12/27/13 Exam# [id number] Ordering Dr: Karin Khanna DO STUDY: RENAL [...] 4. Normal urinary bladder. Electronically Signed: Rajeev dale at 19:47 EDT Tel [phone], Service support [phone], CC: Karin Khanna DO Gate Clerk: Signed 27-Dec-2013 L/S Spine Min 4 Views Result: Comments: See Note; NOTES: [facility] Imaging Services [address] [place] [address] Radiology Report MR#: [id number] Acct: [id number] Name: CHELSEA HENNING Rep #: [id number] : 1960 F 53 From: Rajeev Farias DO PCP: Karin Khanna DO Status: REG CLI Study: L/S Spine Min 4 Views Date of Exam: 12/27/13 Exam# [id number] Ordering Dr: Karin Khanna DO STUDY: X-RAY - SHIRA AR SPINE REASON FOR EXAM: Female, 53 years [...] of the lumbar spine. Electronically Signed: Rajeev Farias DO at 20 :52 EDT Tel [phone], Service support [phone], CC: Karin Khanna DO Gate Clerk: Signed 23-Nov-2013 Esophagus Only Result: Comments: See Note; NOTES: [facility] Services [address] [place] [address] Radiology Report MR#: [id number] Acct: [id number] Name: CHELSEA HENNING Rep #: [id number] : 1960 F 53 From: Salvador Pike MD PCP: Karin Khanna DO Status: REG CLI Study: Esophagus Only Date of Exam: 11/23/13 Exam# [id number] Ordering Dr: Karin Khanna DO STUDY: X-RAY [...] the gastroesophag eal CC: Karin Khanna DO Gate Clerk: Signed 23-Nov-2013 Thyroid Result: Comments: See Note; NOTES: [facility] [address] [place] [address] Ultrasound Report MR#: [id number] Acct: [id number] Name: CHELSEA HENNING Rep #: [id number] : 1960 F 53 From: Salvador Pike MD PCP: Karin Khanna DO Status: REG CLI Study: Thyroid Date of Exam: 11/23/13 Exam# [id number] Ordering Dr: Karin Khanna DO STUDY: THYROID [...] Salvador Pike MD at 12:56 EDT Tel [phone], Service support [phone], CC: Karin Khanna DO Gate Clerk: Signed Family History Unknown Family Member Name [...] smoker Vital Signs Date Test Result Details 91-Ogw-132717:38 Temperature 97.1 f Comments: Method: Temporal Pulse [...] 1.63 m2 Results Date Description Value Details :09 HgA1C , Office (85036) HgA1C , Office 6.4 % (Normal) Range: 4.6 - 7.1 77-Qht-923243:04 RHEUMATOID FACTOR-QUANT Comments: PATIENT NOT FASTINGPERFORMED BY: [address] [id number] BY: [address] [id number] (86[address]) RA Latex Turbid. 19.3 {IU/mL} (Abnormal) Range: 0.0-13.9 64-Pen-469775:04 CCP ANTIBODY (36094) Comments: PATIENT NOT FASTINGPERFORMED BY: [address] [id number] BY: [address] [id number] CCP Antibodies IgG/IgA >250 {units} (Abnormal) Range: 0-19 Comments: Negative <20 Weak positive 20 - 39 Moderate positive 40 - 59 Strong positive >59 27-Gli-957187:04 C-REACTIVE PROTEIN Comments: PATIENT NOT FASTINGPERFORMED BY: [address] [id number] BY: [address] [id number] (97745) C-Reactive Protein, Quant 4.1 mg/L (Normal) Range: 0.0-4.9 93-Hic-857614:04 SED RATE ERYTHROCYTE Comments: PATIENT NOT FASTINGPERFORMED BY: [address] [id number] BY: [address] [id number] (25557) Sedimentation Rate-Westergren 2 mm/h (Normal) Range: 0-40 02-Ovh-523899:14 Alanine Aminotransferas (SGPT) Comments: [facility] [address] [place], [place], [address] ALT 26 U/L (Normal) Range: 13-56 34-Brj-646685:14 AST(SGOT) Comments: [facility] [address] [place], [address] AST 20 U/L (Normal) Range: 15-37 39-Ros-176011:14 Basic Metabolic Profile (BMP) Comments: [facility] [address] [place], [address] GAP 7 (Normal) Range: 5-15 CO2 31.0 [...] A.D.A. criteria.Please note revised GLUCOSE reference range ynqjkqzis87/02/2018. 46-Sxi-320437:14 Hemoglobin A1c Comments: [facility] [address] [place], [address] HGB A1C 6.6 % (Abnormal) Range: 4.2-6.3 50-Vkh-661882:14 Lipid Profile Comments: [facility] [address] [place], [address] VLDL 7 mg/dL (Normal) Range: 5-40 LDL [...] 200-240 mg/dL Borderline >240 mg/dL High Risk 82-Oqu-076038:14 T4 Free Direct Comments: [facility] [address] [place], [address] T4 FREE DIRECT 1.20 ng/dL (Normal) Range: 0.76-1.46 91-Kzh-746324:14 Thyroid Stim Hormone (TSH) Comments: [facility] [address] [place], [address] TSH 1.94 {uIU/mL} (Normal) Range: 0.358-3.74 89-Jbm-753890:14 Vitamin B12 1757 pg/mL (Abnormal) Comments: [facility] [address] [place], [address] Range: 211-911 92-Adx-587639:14 Vitamin D,25 Hydroxy Comments: [facility] [address] [place], [address] Vitamin D 25-OH 63.2 ng/mL (Normal) Range: 29.95-100.01 Comments: Vitamin D 25(OH) Status Range Deficiency <20 ng/mL (50nmol/L) Insuffciency 20 - 30 ng/mL (50 - 75 nmol/L) Sufficiency 30 - 100 ng/mL (75 - 250 nmol/L) Toxicity >100 ng/mL (>250 nmol/L) :43 Alanine Aminotransferas (SGPT) Comments: [facility] [address] [place], [address] ALT 33 U/L (Normal) Range: 13-56 :43 AST(SGOT) Comments: [facility] [address] [place], [address] AST 22 U/L (Normal) Range: 15-37 :43 Basic Metabolic Profile (BMP) Comments: [facility] [address] [place], [address] GAP 7 (Normal) Range: 5-15 CO2 32.0 [...] suggests HYPOGLYCEMIA.Please note revised GLUCOSE reference range atjsjymji78/02/2018. :43 Hemoglobin A1c Comments: [facility] [address] [place], [address] HGB A1C 6.8 % (Abnormal) Range: 4.2-6.3 :43 Lipid Profile Comments: [facility] [address] [place], [address] VLDL 7 mg/dL (Normal) Range: 5-40 LDL [...] High Risk :43 T4 Free Direct Comments: [facility] [address] [place], [address] T4 FREE DIRECT 1.25 ng/dL (Normal) Range: 0.76-1.46 :43 Thyroid Stim Hormone (TSH) Comments: [facility] [address] [place], [address] TSH 2.08 {uIU/mL} (Normal) Range: 0.358-3.74 :43 Vitamin B12 1996 pg/mL (Abnormal) Comments: [facility] [address] [place], [address] Range: 211-911 :43 Vitamin D,25 Hydroxy Comments: [facility] [address] [place], [address] Vitamin D 25-OH 66.0 ng/mL (Normal) Range: 29.95-100.01 Comments: Vitamin D 25(OH) Status Range Deficiency <20 ng/mL (50nmol/L) Insuffciency 20 - 30 ng/mL (50 - 75 nmol/L) Sufficiency 30 - 100 ng/mL (75 - 250 nmol/L) Toxicity >100 ng/mL (>250 nmol/L) 25-Scu-234945:42 TSH (75182) Comments: PATIENT NOT FASTINGPERFORMED BY: [employer] [place] [id number] TSH 1.190 {uIU/mL} (Normal) Range: 0.450-4.500 74-Pqw-598696:42 T3, FREE (TRIDOTHYRONINE) (18011) Comments: PATIENT NOT FASTINGPERFORMED BY: [facility] Cskwpk3901 [facility] [id number] Triiodothyronine (T3), Free 2.1 pg/mL (Normal) Range: 2.0-4.4 :42 T4, FREE (THYROXINE) (93969) Comments: PATIENT NOT FASTINGPERFORMED BY: [facility] Acjzmz9045 [facility] [id number] T4,Free(Direct) 1.68 ng/dL (Normal) Range: 0.82-1.77 :38 Alanine Aminotransferas (SGPT) Comments: [facility] [address] [place], [place], [address](653) ALT 26 U/L (Normal) Range: 13-56 :38 AST(SGOT) Comments: [facility] [address] [place], [place], [address] AST 23 U/L (Normal) Range: 15-37 :38 Basic Metabolic Profile (BMP) Comments: [facility] [address] [place], [place], [address] GAP 7 (Normal) Range: 5-15 CO2 29.0 [...] A.D.A. criteria.Please note revised GLUCOSE reference range pcwyezxwp22/02/2018. 04-Hsu-29511:38 Hemoglobin A1c Comments: [facility] [address] [place], [address] HGB A1C 7.1 % (Abnormal) Range: 4.2-6.3 :38 Lipid Profile Comments: [facility] [address] [place], [address] VLDL 5 mg/dL (Normal) Range: 5-40 LDL [...] High Risk :38 T4 Free Direct Comments: [facility] [address] [place], [address] T4 FREE DIRECT 1.58 ng/dL (Abnormal) Range: 0.76-1.46 01-Ivg-44768:38 Thyroid Stim Hormone (TSH) Comments: [facility] [address] [place], [address] TSH 0.73 {uIU/mL} (Normal) Range: 0.358-3.74 88-Vpw-843884:27 Alanine Aminotransferas (SGPT) Comments: [facility] [address] [place], [address] ALT 27 U/L (Normal) Range: 12-78 88-Enj-415670:27 AST(SGOT) Comments: [facility] [address] [place], [address] AST 19 U/L (Normal) Range: 15-37 71-Trh-650550:27 Basic Metabolic Profile (BMP) Comments: [facility] [address] [place], [address] GAP 7 (Normal) Range: 5-15 CO2 29.0 [...] 7-18 GLU 79 mg/dL (Normal) Range: 70-110 34-Mgl-167907:27 Hemoglobin A1c Comments: [facility] [address] [place], [place], [address] HGB A1C 6.8 % (Abnormal) Range: 4.2-6.3 70-Dmz-243822:27 Lipid Profile Comments: [facility] [address] [place], [place], [address] VLDL 6 mg/dL (Normal) Range: 5-40 LDL [...] 200-240 mg/dL Borderline >240 mg/dL High Risk 30-Qek-536975:27 Microalb:Creat Ratio,Random UR Comments: [facility] [address] [place], [address] MALB:CREAT 8.2 {mg/g_CRE} (Normal) MICROALBUMIN,UR 11.5 mg/L (Normal) UR CREAT 140.00 mg/dL (Normal) 91-Psi-578635:27 T4 Free Direct Comments: [facility] [address] [place], [address] T4 FREE DIRECT 1.20 ng/dL (Normal) Range: 0.76-1.46 07-Sfs-376551:27 Thyroid Stim Hormone (TSH) Comments: [facility] [address] [place], [address] TSH 4.21 {uIU/mL} (Abnormal) Range: 0.358-3.74 73-Knd-868347:27 Vitamin B12 763 pg/mL (Normal) Comments: [facility] [address] [place], [address] Range: 211-911 72-Cos-323773:27 Vitamin D,25 Hydroxy Comments: [address] [place], [address] Vitamin D 25-OH 59.2 ng/mL (Normal) Comments: Vitamin D 25(OH) Status Range Deficiency <20 ng/mL (50nmol/L) Insuffciency 20 - 30 ng/mL (50 - 75 nmol/L) Sufficiency 30 - 100 ng/mL (75 - 250 nmol/L) Toxicity >100 ng/mL (>250 nmol/L) 54-Jhp-970817:19 CRP Comments: [facility] [address] [place], [address] C-REACTIVE PROT < 2.90 mg/L (Normal) Range: 0.0-3.0 Comments: C-Reactive Protein (CRP) provides useful information for thediagnosis, therapy and monitoring of inflammatory processesand associated diseases. For the evaluation of Relative Riskfor Cardiovascular Dise ase, a High Sensitivity CRP (HSCRP)should be ordered. 05-Tmq-561556:14 CBC W/Diff, Automated Comments: [facility] [address] [place], [place], [address] Absolute Lymph 1.38 {X10_3/ul} (Normal) Range: 0.83-4.51 [...] 4.2-5.4 WBC 4.0 K/mm3 (Abnormal) Range: 4.4-11.0 34-Dfx-380307:14 Comprehensive Metabolic Profil Comments: [facility] [address] [place], [place], [address] GAP 8 (Normal) Range: 5-15 CO2 30.0 [...] 200 mg/dLsuggests DIABETES MELLITUS per A.D.A. criteria. 83-Ggq-192199:14 Erythrocyte Sed Rate Comments: [facility] [address] [place], [place], [address] SED RATE 2 mm/h (Normal) Range: 0-30 5-Kbc-543773:39 Alanine Aminotransferas (SGPT) Comments: [facility] [address] [place], [place], [address] ALT 24 U/L (Normal) Range: 12-78 4-Fpg-216325:39 AST(SGOT) Comments: [facility] [address] [place], [address] AST 23 U/L (Normal) Range: 15-37 5-Vmk-540831:39 Basic Metabolic Profile (BMP) Comments: [facility] [address] [place], [address] GAP 6 (Normal) Range: 5-15 CO2 31.0 [...] 126 mg/dLsuggests DIABETES MELLITUS per A.D.A. criteria. 6-Brg-342894:39 Hemoglobin A1c Comments: [facility] [address] [place], [address] HGB A1C 6.5 % (Abnormal) Range: 4.2-6.3 4-Bjh-266403:39 Lipid Profile Comments: [facility] [address] [place], [address] VLDL 6 mg/dL (Normal) Range: 5-40 LDL [...] 200-240 mg/dL Borderline >240 mg/dL High Risk 3-Ptd-654468:39 T4 Free Direct Comments: [facility] [address] [place], [address] T4 FREE DIRECT 1.36 ng/dL (Normal) Range: 0.76-1.46 9-Wko-396276:39 Thyroid Stim Hormone (TSH) Comments: [facility] [address] [place], [address] TSH 3.60 {uIU/mL} (Normal) Range: 0.358-3.74 5-Fkd-333982:39 Vitamin B12 497 pg/mL (Normal) Comments: [facility] [address] [place], [address] Range: 211-911 6-Nuw-592968:39 Vitamin D,25 Hydroxy Comments: [facility] [address] [place], [address] Vitamin D 25-OH 58.6 ng/mL (Normal) Comments: Vitamin D 25(OH) Status Range Deficiency <20 ng/mL (50nmol/L) Insuffciency 20 - 30 ng/mL (50 - 75 nmol/L) Sufficiency 30 - 100 ng/mL (75 - 250 nmol/L) Toxicity >100 ng/mL (>250 nmol/L) :42 Microscopic Examination Comments: PATIENT NOT FASTINGPERFORMED BY: [facility] Aeaeuq8204 [facility] [id number] Bacteria None seen (Normal) Mucus Threads Present (Normal) Crystal Type Calcium Oxalate (Normal) Crystals Present (Abnormal) Epithelial Cells (non renal) 0-10 {/hpf} (Normal) Range: 0 - 10 RBC 0-2 {/hpf} (Normal) Range: 0 - 2 WBC 0-5 {/hpf} (Normal) Range: 0 - 5 :42 T3, FREE (TRIDOTHYRONINE) (53558) Comments: PATIENT NOT FASTINGPERFORMED BY: [facility] Nhsxes7169 [employer] [facility] [facility] [id number] Triiodothyronine,Free,Serum 2.4 pg/mL (Normal) Range: 2.0-4.4 :42 T4, FREE (THYROXINE) (36652) Comments: PATIENT NOT FASTINGPERFORMED BY: [employer] [facility] [id number] T4,Free(Direct) 1.70 ng/dL (Normal) Range: 0.82-1.77 :42 URINE VEE CULTURE-IDENTIFICATN Comments: PATIENT NOT FASTINGPERFORMED BY: [employer] [facility] [id number] (30291) Result 1 PSMS (Abnormal) Comments: Pseudomonas glnqtaktnh351 Colonies/mL . S = Susceptible; I = Intermediate; R = Resistant P = Positive; N = Negative MICS are expressed in micrograms per mL Antibiotic RSLT#1 RSLT#2 RSLT#3 RSLT#4Amikacin SCefepime SCeftazidime SCiprofloxacin SGentamicin SImipenem SLevofloxacin SMeropenem SPiperacillin STica rcillin STobramycin S Urine Final report (Abnormal) Culture,Comprehensive :42 LDH (LD) (LACTATE DEHYDROGENASE) Comments: PATIENT NOT FASTINGPERFORMED BY: [employer] Wnkqns8282 [facility] [id number] (07015) LDH 239 [iU]/L (Abnormal) Range: 119-226 :42 SED RATE ERYTHROCYTE (02754) Comments: PATIENT NOT FASTINGPERFORMED BY: [facility] Pwoufz3385 [facility] [id number] Sedimentation Rate-Westergren 2 mm/h (Normal) Range: 0-40 :42 C-REACTIVE PROTEIN (53302) Comments: PATIENT NOT FASTINGPERFORMED BY: [facility]6370 [facility] [id number] C-Reactive Protein, Quant 2.1 mg/L (Normal) Range: 0.0-4.9 :42 URINALYSIS, W/ MICRO (02081) Comments: PATIENT NOT FASTINGPERFORMED BY: [facility]6370 [facility] [id number] Microscopic Examination See below: (Normal) Comments: Microscopic was indicated and was performed. Nitrite, Urine Negative (Normal) Urobilinogen,Semi-Qn 0.2 mg/dL (Normal) Range: 0.2-1.0 Bilirubin Negative (Normal) Occult Blood Negative (Normal) Ketones Negative (Normal) Glucose Negative (Normal) Protein Negative (Normal) WBC Esterase 2+ (Abnormal) Appearance Clear (Normal) Urine-Color Yellow (Normal) pH 6.5 (Normal) Range: 5.0-7.5 Specific [place] 1.022 (Normal) Range: 1.005-1.030 :42 TSH (64645) Comments: PATIENT NOT FASTINGPERFORMED BY: [facility]6370 [facility] [id number] TSH 3.290 {uIU/mL} (Normal) Range: 0.450-4.500 :42 CBC W/AUTO DIFF WBC Comments: PATIENT NOT FASTINGPERFORMED BY: [facility]6370 [facility] [id number] Information: SRC:UC (17607) Immature Grans (Abs) 0.0 {x10E3/uL} (Normal) Range: [...] 3.77-5.28 WBC 4.7 {x10E3/uL} (Normal) Range: 3.4-10.8 58-Qcn-128541:50 Alanine Aminotransferas (SGPT) Comments: [address] [place], [place], [phone] ALT 25 U/L (Normal) Range: 12-78 65-Zwb-649124:50 AST(SGOT) Comments: [address] [place], [place], [address] AST 21 U/L (Normal) Range: 15-37 14-Aox-774815:50 Basic Metabolic Profile (BMP) Comments: [address] [place], [place], [address] GAP 8 (Normal) Range: 5-15 CO2 30.0 [...] 7-18 GLU 87 mg/dL (Normal) Range: 70-110 24-Lnq-593908:50 Hemoglobin A1c Comments: [facility] [address] [place], [place], [address] HGB A1C 6.5 % (Abnormal) Range: 4.2-6.3 10-Vkw-737862:50 Lipid Profile Comments: [facility] [address]ir[address]. [place], [place], [id number] VLDL 7 mg/dL (Normal) Range: 5-40 LDL [...] 200-240 mg/dL Borderline >240 mg/dL High Risk 63-Hym-171055:50 T4 Free Direct Comments: [facility] Ptjparqpcn5[address] [place], [place], [id number] T4 FREE DIRECT 1.39 ng/dL (Normal) Range: 0.76-1.46 92-Wia-058495:50 Vitamin B12 513 pg/mL (Normal) Comments: [facility] Idosuokvza4720 [place], [address] Range: 211-911 97-Ncv-411187:50 Vitamin D,25 Hydroxy Comments: [facility] Mrrzikkitr9597 [place], [address] Vitamin D 25-OH 65.2 ng/mL (Normal) Comments: Vitamin D 25(OH) Status Range Deficiency <20 ng/mL (50nmol/L) Insuffciency 20 - 30 ng/mL (50 - 75 nmol/L) Sufficiency 30 - 100 ng/mL (75 - 250 nmol/L) Toxicity >100 ng/mL (>250 nmol/L) 36-Cpx-622013:51 Rapid Flu (96958 x 2) Comments: negative Influenza A Ag neg (Normal) 81-Eos-78019:59 THROAT CULTURE (28847) Comments: PATIENT NOT FASTINGPERFORMED BY: [facility] [employer] [facility] [id number] Information: SRC: Result 1 RRF (Normal) Comments: Routine respiratory maryam Upper Respiratory Culture Final report (Normal) 55-Wky-869305:15 PROLACTIN (74241) Comments: PATIENT NOT FASTINGPERFORMED BY: [facility] Kjijrw0023 [facility] [id number] Prolactin 10.1 ng/mL (Normal) Range: 4.8-23.3 :40 Alanine Aminotransferas (SGPT) Comments: [facility] Vzpmmzmzpt8403 [address] [place], [address] ALT 23 U/L (Normal) Range: 12-78 :40 AST(SGOT) Comments: [facility] Gegqdifxcz9932 [address] [place], [address] AST 22 U/L (Normal) Range: 15-37 08-Oct-20168:40 Basic Metabolic Profile (BMP) Comments: [facility] Cbxzfqzjba5312 [address] [place], [id number] GAP 9 (Normal) Range: 5-15 CO2 29.0 [...] per A.D.A. criteria. :40 Hemoglobin A1c Comments: [facility] Hxqomcfdhw1643 [facility] [place], [place], [address] HGB A1C 6.6 % (Abnormal) Range: 4.2-6.3 :40 Lipid Profile Comments: [facility] Dlrygejwbx9999 [facility] [place], [place], [address] VLDL 7 mg/dL (Normal) Range: 5-40 LDL [...] High Risk :40 Microalb:Creat Ratio,Random UR Comments: [facility] [address] [place], [address] MALB:CREAT 8.4 {mg/g_CRE} (Normal) MICROALBUMIN,UR 11.5 mg/L (Normal) UR CREAT 137.00 mg/dL (Normal) :40 T4 Free Direct Comments: [facility] [address] [place], [address] T4 FREE DIRECT 1.49 ng/dL (Abnormal) Range: 0.76-1.46 :40 Thyroid Stim Hormone (TSH) Comments: [facility] Zgxevtexzi9645 [address] [place], [address] TSH 1.79 {uIU/mL} (Normal) Range: 0.358-3.74 :40 Vitamin B12 624 pg/mL (Normal) Comments: [facility] Pmiyojgxkb3323 [address] [place], [address] Range: 211-911 :40 Vitamin D,25 Hydroxy Comments: [facility] Rcnhvcqkuh7814 [address] [place], [address] Vitamin D 25-OH 55.6 ng/mL (Normal) Comments: Vitamin D 25(OH) Status Range Deficiency <20 ng/mL (50nmol/L) Insuffciency 20 - 30 ng/mL (50 - 75 nmol/L) Sufficiency 30 - 100 ng/mL (75 - 250 nmol/L) Toxicity >100 ng/mL (>250 nmol/L) :40 Alanine Aminotransferas (SGPT) Comments: [facility] Cs[address] [place], [address] ALT 24 U/L (Normal) Range: 12-78 :40 AST(SGOT) Comments: [facility] Mfvscozlcb6722 [address] [place], [address] AST 21 U/L (Normal) Range: 15-37 4-Orestes-77905:40 Basic Metabolic Profile (BMP) Comments: [facility] Pkzhmlzhvw4859 [address] [place], [place], [address] GAP 9 (Normal) Range: 5-15 CO2 29.0 [...] 126 mg/dLsuggests DIABETES MELLITUS per A.D.A. criteria. 11-Aug-20169:40 Hemoglobin A1c Comments: [facility] Kdirvydhpp8187 [address] [place], [place], [address] HGB A1C 6.5 % (Abnormal) Range: 4.2-6.3 11-Aug-20169:40 Lipid Profile Comments: [facility] Cifdxgntbo5638 [address]. [place], [place], [address] VLDL 5 mg/dL (Normal) Range: 5-40 LDL [...] mg/dL High Risk :40 Microalbumin,Random Urine Comments: [facility] Iqzlhzzrgp5425 [address]. [place], [address] MICROALBUMIN,UR 13.4 mg/L (Normal) :40 T4 Free Direct Comments: [facility] Mnmyttscpp16[address] [place], [id number] T4 FREE DIRECT 1.55 ng/dL (Abnormal) Range: 0.76-1.46 :40 Thyroid Stim Hormone (TSH) Comments: [facility] Tozojzqxuu9394 [place], [address] TSH 1.40 {uIU/mL} (Normal) Range: 0.358-3.74 :40 Vitamin B12 720 pg/mL (Normal) Comments: [facility] Ojfbihgyir9752 [place], [address] Range: 211-911 :40 Vitamin D,25 Hydroxy Comments: [facility] Zdbtkfzasi3394 [address]. [place], [id number] Vitamin D 25-OH 55.5 ng/mL (Normal) Comments: Vitamin D 25(OH) Status Range Deficiency <20 ng/mL (50nmol/L) Insuffciency 20 - 30 ng/mL (50 - 75 nmol/L) Sufficiency 30 - 100 ng/mL (75 - 250 nmol/L) Toxicity >100 ng/mL (>250 nmol/L) :08 Comprehensive Comments: DR KHANNA ORDERED LIPID/CMP/TSHH CHASIDY ORDERED A1C/AST/ALT/LIPID/BMP/TSH/T4F/B12/[facility] Jyojpxozkx6991 [place], [address] Metabolic Profil GAP 5 (Normal) Range: [...] result less than 50 mg/dL suggests HYPOGLYCEMIA. 03-Olp-97147:08 Hemoglobin A1c Comments: DR KHANNA ORDERED LIPID/CMP/TSHH CHASIDY ORDERED A1C/AST/ALT/LIPID/BMP/TSH/T4F/B12/[facility]DW[facility] Ueqldnudoj8536 [address] [place], [place], [address] HGB A1C 6.5 % (Abnormal) Range: 4.2-6.3 95-Ubi-15846:08 Lipid Profile Comments: DR KHANNA ORDERED LIPID/CMP/TSHH CHASIDY ORDERED A1C/AST/ALT/LIPID/BMP/TSH/T4F/B12/[facility] Adwuqneaeu8047 [place], [address] VLDL 8 mg/dL (Normal) Range: 5-40 LDL [...] Comments: DR KHANNA ORDERED LIPID/CMP/TSHH CHASIDY ORDERED A1C/AST/ALT/LIPID/BMP/TSH/T4F/B12/[facility] Brjabqejrk0492 [place], [address] T4 FREE DIRECT 1.67 ng/dL (Abnormal) Range: 0.76-1.46 :08 Thyroid Stim Comments: DR KHANNA ORDERED LIPID/CMP/[facility] CHASIDY ORDERED A1C/AST/ALT/LIPID/BMP/TSH/T4F/B12/[facility] Atjsvaiyer0822 [place], [address] Hormone (TSH) TSH 0.43 {uIU/mL} (Normal) Range: 0.358-3.74 :08 Vitamin B12 622 pg/mL (Normal) Comments: DR KHANNA ORDERED LIPID/CMP/TSHH CHASIDY ORDERED A1C/AST/ALT/LIPID/BMP/TSH/T4F/B12/[facility] Vtlaavzkwe3883 [place], [address] Range: 211-911 :08 Vitamin D,25 Comments: DR KHANNA ORDERED LIPID/CMP/TSHH CHASIDY ORDERED A1C/AST/ALT/LIPID/BMP/TSH/T4F/B12/[facility]DW[facility] Cdxdbewmgu4004 [address] [place], [place], [address] Hydroxy Vitamin D 25-OH 52.9 ng/mL (Normal) Comments: Vitamin D 25(OH) Status Range Deficiency <20 ng/mL (50nmol/L) Insuffciency 20 - 30 ng/mL (50 - 75 nmol/L) Sufficiency 30 - 100 ng/mL (75 - 250 nmol/L) Toxicity >100 ng/mL (>250 nmol/L) :20 CBC W/Diff, Automated Comments: [facility] Oosqpveprc3775 [address] [place], [place], [address] Absolute Lymph 1.13 {X10_3/ul} (Normal) Range: 0.83-4.51 [...] 4.2-5.4 WBC 3.2 K/mm3 (Abnormal) Range: 4.4-11.0 :20 Comprehensive Metabolic Profil Comments: A1C TSH AST ALT BMP LIPID MIACRE VITD B12DR.OLIVER CRP CBCD CMP [facility] Rjwbispavn1070 [place], [address] GAP 6 (Normal) Range: 5-15 CO2 30.0 [...] 7-18 GLU 83 mg/dL (Normal) Range: 70-110 60-Sbw-34288:20 CRP Comments: A1C TSH AST ALT BMP LIPID MIACRE VITD B12DR.OLIVER CRP CBCD [facility] Dfjcubjals5138 [address] [place], [place], [address] C-REACTIVE PROT < 2.90 mg/L (Normal) Range: 0.0-3.0 Comments: C-Reactive Protein (CRP) provides useful information for thediagnosis, therapy and monitoring of inflammatory processesand associated diseases. For the evaluation of Relative Riskfor Cardiovascular Dise ase, a High Sensitivity CRP (HSCRP)should be ordered. :20 Erythrocyte Sed Rate Comments: [facility] Yiwtndaqad7443 [place], [address] SED RATE 2 mm/h (Normal) Range: 0-30 92-Wsy-89419:20 Hemoglobin A1c Comments: [facility] Zrbbpqgzjc4964 [place], [address] HGB A1C 6.3 % (Normal) Range: 4.2-6.3 11-Ive-51625:20 Lipid Profile Comments: A1C TSH AST ALT BMP LIPID MIACRE VITD B12DR.OLIVER CRP CBCD [facility] Mcwcvroaiu8011 [place], [address] VLDL 7 mg/dL (Normal) Range: [...] 200-240 mg/dL Borderline >240 mg/dL High Risk 80-Hqd-10496:20 Microalb:Creat Ratio,Random UR Comments: [facility] Gzsy[address]aimhc[address] [place], [address] MALB:CREAT 6.4 {mg/g_CRE} (Normal) MICROALBUMIN,UR 10.0 mg/L (Normal) UR CREAT 157.00 mg/dL (Normal) :20 Thyroid Stim Hormone (TSH) Comments: A1C TSH AST ALT BMP LIPID MIACRE VITD B12DR.OLIVER CRP CBCD CMP [facility] Rcvybnmbqw1811 [place], [address] TSH 0.54 {uIU/mL} (Normal) Range: 0.358-3.74 :20 Vitamin B12 391 pg/mL (Normal) Comments: [facility] [address] [place], [address] Range: 211-911 :20 Vitamin D,25 Hydroxy Comments: [facility] As[address]cc[address] [place], [address] Vitamin D 25-OH 55.1 ng/mL (Normal) Comments: Vitamin D 25(OH) Status Range Deficiency <20 ng/mL (50nmol/L) Insuffciency 20 - 30 ng/mL (50 - 75 nmol/L) Sufficiency 30 - 100 ng/mL (75 - 250 nmol/L) Toxicity >100 ng/mL (>250 nmol/L) 0-Rem-398230:47 Rapid Flu (14334 x 2) Influenza A Ag negative a and b (Normal) :22 Alanine Aminotransferas (SGPT) Comments: [facility] Ry[address] [place], [place], [id number] ALT 29 U/L (Normal) Range: 12-78 :22 AST(SGOT) Comments: [facility] J[address] [place], [address] AST 21 U/L (Normal) Range: 15-37 :22 Basic Metabolic Profile (BMP) Comments: [facility] [address] [place], [address] GAP 6 (Normal) Range: 5-15 CO2 [...] (Abnormal) Range: 70-110 :22 Hemoglobin A1c Comments: [facility] Zafanhxacc3015 [place], [address] ; non-emergent till apt and ordered by another dr HGB A1C 6.4 % (Abnormal) Range: 4.2-6.3 :22 Lipid Profile Comments: [facility] Jhyyacnqkr6091 [place], [address] VLDL 7 mg/dL (Normal) Range: [...] High Risk :22 Microalb:Creat Ratio,Random UR Comments: [facility] Yarwocohqc5001 [place], [address] MALB:CREAT 10.6 {mg/g_CRE} (Normal) MICROALBUMIN,UR 8.2 mg/L (Normal) UR CREAT 77.60 mg/dL (Normal) :22 Thyroid Stim Hormone (TSH) Comments: [facility] Qqmywduepz9347 [address] [place], [address] TSH 0.88 {uIU/mL} (Normal) Range: 0.358-3.74 :22 Vitamin B12 470 pg/mL (Normal) Comments: [address] [place] [place], [address] Range: 211-911 :22 Vitamin D,25 Hydroxy Comments: [address] [place] [place], [id number] Vitamin D 25-OH 50.9 ng/mL (Normal) Comments: Vitamin D 25(OH) Status Range Deficiency <20 ng/mL (50nmol/L) Insuffciency 20 - 30 ng/mL (50 - 75 nmol/L) Sufficiency 30 - 100 ng/mL (75 - 250 nmol/L) Toxicity >100 ng/mL (>250 nmol/L) :46 Alanine Aminotransferas (SGPT) Comments: [address] [place], [address] ALT 30 U/L (Normal) Range: 12-78 :46 AST(SGOT) Comments: [address] [place] [place], [address] AST 26 U/L (Normal) Range: 15-37 :46 Basic Metabolic Profile (BMP) Comments: [address] [place] [place], [id number] GAP 7 (Normal) Range: 5-15 CO2 31.0 [...] (Normal) Range: 70-110 :46 Hemoglobin A1c Comments: [facility] Mfccflwisi6796 [address] [place], [place], [address] HGB A1C 6.8 % (Abnormal) Range: 4.2-6.3 :46 Lipid Profile Comments: [facility] Wprijgwzuc9[address] [place], [place], [address] VLDL 6 mg/dL (Normal) Range: 5-40 LDL [...] Risk :46 Thyroid Stim Hormone (TSH) Comments: [facility] Edyiraogys0076 [address] [place], [place], [address] TSH 1.82 {uIU/mL} (Normal) Range: 0.358-3.74 :46 Vitamin B12 423 pg/mL (Normal) Comments: [facility] Yywnvjjlui0572 [address] [place], [place], [address] Range: 211-911 05-Xyn-82353:46 Vitamin D,25 Hydroxy Comments: [facility] Ursrpwihoi2557 [place], [address] Vitamin D 25-OH 83.9 ng/mL (Normal) Comments: Vitamin D 25(OH) Status Range Deficiency <20 ng/mL (50nmol/L) Insuffciency 20 - 30 ng/mL (50 - 75 nmol/L) Sufficiency 30 - 100 ng/mL (75 - 250 nmol/L) Toxicity >100 ng/mL (>250 nmol/L) 10-Mar-20159:14 Alanine Aminotransferas (SGPT) Comments: Test performed at:[facility] Iymq[address]ukfpa1548 [place] [address] ALT 26 U/L (Normal) Range: 12-78 10-Mar-20159:14 AST(SGOT) Comments: Test performed at:[facility] Cfbffpuauh7360 [place] [address] AST 20 U/L (Normal) Range: 15-37 10-Mar-20159:14 Basic Metabolic Profile (BMP) Comments: Test performed at:[facility] Phuacpzgpw1608 [place] [address] GAP 12 (Normal) Range: 5-15 CO2 [...] Comments: Please note revised CREATININE reference range rtdonlevr78/22/2015. BUN 16 mg/dL (Normal) Range: 7-18 GLU 138 mg/dL (Abnormal) Range: 70-110 Comments: Fasting Glucose result greater than or equal to 126 mg/dLsuggests DIABETES MELLITUS per A.D.A. criteria. :14 Hemoglobin A1c Comments: Test performed at:[facility] [address]whgr[address] [place] [address] HGB A1C 6.6 % (Abnormal) Range: 4.2-6.3 :14 Lipid Profile Comments: Test performed at:[facility] Lmznnuywfd4111 [place] [address] VLDL 6 mg/dL (Normal) Range: 5-40 [...] Thyroid Stim Hormone (TSH) Comments: Test performed at:[facility] Pmwbmucdeg6566 [place] [address] TSH 1.65 {uIU/mL} (Normal) Range: 0.358-3.74 :14 Vitamin B12 358 pg/mL (Normal) Comments: Test performed at:[facility] Jshxjakbjd1692 [place] [address] Range: 211-911 :14 Vitamin D,25 Hydroxy Comments: Test performed at:[facility] Lnixknsfwl5222 [place] [address] Vitamin D 25-OH 50.8 ng/mL (Normal) Comments: Vitamin D 25(OH) Status Range Deficiency <20 ng/mL (50nmol/L) Insuffciency 20 - 30 ng/mL (50 - 75 nmol/L) Sufficiency 30 - 100 ng/mL (75 - 250 nmol/L) Toxicity >100 ng/mL (>250 nmol/L) 44-Woi-58206:33 Microalbumin,Random Urine Comments: Test performed at:[facility] [address] [place] [address] MICROALBUMIN,UR 10.1 mg/L (Normal) :29 Alanine Aminotransferas (SGPT) Comments: Test performed at:[facility] In[address] [place] [address] ALT 26 U/L (Normal) Range: 12-78 :29 AST(SGOT) Comments: Test performed at:[facility] Y[address] [place] [address] AST 21 U/L (Normal) Range: 15-37 :29 Basic Metabolic Profile (BMP) Comments: Test performed at:[facility] T[address]up[address] [place] [address] GAP 7 (Normal) Range: 5-15 [...] CALLED TO MADI KRISHNAMURTHY 11/29/14 Hanna Swartz. :29 Hemoglobin A1c Comments: Test performed at:[facility] [address] [place] [address] HGB A1C 6.4 % (Abnormal) Range: 4.2-6.3 :29 Lipid Profile Comments: Test performed at:[facility] Ftlaphxcmu5290 [address] [place] [address] VLDL 4 mg/dL (Abnormal) Range: 5-40 LDL [...] Thyroid Stim Hormone (TSH) Comments: Test performed at:[facility] Ibjqnymtqe3380 [address] [place] [address] TSH 2.02 {uIU/mL} (Normal) Range: 0.358-3.74 05-Egs-11490:29 Vitamin B12 392 pg/mL (Normal) Comments: Test performed at:[facility] Myndkaluil9912 [address] [place] [id number] Range: 211-911 :29 Vitamin D,25 Hydroxy Comments: Test performed at:[facility] Pudwivbrxn2149 [address] [place] [address] Vitamin D 25-OH 38.5 ng/mL (Normal) Comments: Vitamin D 25(OH) Status Range Deficiency <20 ng/mL (50nmol/L) Insuffciency 20 - 30 ng/mL (50 - 75 nmol/L) Sufficiency 30 - 100 ng/mL (75 - 250 nmol/L) Toxicity >100 ng/mL (>250 nmol/L) 7-Bmv-850525:15 Protein Electro, Random Urine Comments: PERFORMED BY: [facility] BerlinQeqfna1915 [facility] [id number] Please note: SPRCS (Normal) Comments: Protein electrophoresis scan will follow via computer, mail, orcourier delivery. M-Denis, % Not Observed % (Normal) Gamma Globulin, U 27.0 % (Normal) Beta Globulin, U 46.8 % (Normal) Oiimw-9-Crjzbfwm, U 10.6 % (Normal) Kpamp-1-Anbnxrlp, U 0.0 % (Normal) Albumin, U 15.7 % (Normal) Protein,Total,Urine 9.0 mg/dL (Normal) Range: 0.0-15.0 5-Bju-148809:15 Protein Electro.,S Comments: PERFORMED BY: D[facility]EN [facility] [id number] Please note: SPRCS (Normal) Comments: Protein electrophoresis scan will follow via computer, mail, orcourier delivery. A/G Ratio 1.8 (Normal) Range: 0.7-2.0 Globulin, Total 2.0 g/dL (Normal) Range: 2.0-4.5 M-Denis Not Observed g/dL (Normal) Gamma Globulin 0.5 g/dL (Normal) Range: 0.5-1.6 Beta Globulin 0.7 g/dL (Normal) Range: 0.6-1.3 Zbmqb-8-Aylzjyhh 0.6 g/dL (Normal) Range: 0.4-1.2 Cmquw-8-Wgzogrnq 0.2 g/dL (Normal) Range: 0.1-0.4 Albumin 3.7 g/dL (Normal) Range: 3.2-5.6 Protein, Total, Serum 5.7 g/dL (Abnormal) Range: 6.0-8.5 8-Eyk-224747:15 PARATHORMONE (17597) Comments: PERFORMED BY: DARREN [employer] [facility] [id number] PTH, Intact 17 pg/mL (Normal) Range: 15-65 8-Two-282346:15 PHOSPHORUS (48404) Comments: PERFORMED BY: [facility] [id number] Phosphorus, Serum 3.0 mg/dL (Normal) Range: 2.5-4.5 5-Cea-198369:50 URINE CALCIUM DIMITRY TIMED Comments: PATIENT NOT FASTINGPERFORMED BY: DARREN [facility]uzD[facility] [id number] Information: [id number] START 10/06/14@930AM FINISH; non-emergent till apt 24 Hour (57285) Calcium, Urine 24hr 190.0 {mg/24_hr} (Normal) Range: 100.0-300.0 Calcium, Urine 19.0 mg/dL (Normal) :41 Alanine Aminotransferas (SGPT) Comments: Test performed at:[facility] Qsakmebifx6175 [facility] [place] [address] ALT 30 U/L (Normal) Range: 12-78 :41 AST(SGOT) Comments: Test performed at:[facility] Dfolupakrb0434 [place] [address] AST 19 U/L (Normal) Range: 15-37 :41 Basic Metabolic Profile (BMP) Comments: Test performed at:[facility] Jmwzcdonfe2904 [place] [address] ; non-emergent till apt next [...] criteria. :41 Hemoglobin A1c Comments: Test performed at:[facility] Mbzhmlkakn1873 [place] [address] HGB A1C 6.8 % (Abnormal) Range: 4.2-6.3 Comments: ADDENDA: non-emergent till apt :41 Lipid Profile Comments: Test performed at:[facility] Qqtgvhtrid4039 [place] [address] VLDL 7 mg/dL (Normal) Range: [...] Risk :41 Microalbumin,Random Urine Comments: Test performed at:[facility] Jky[address]tozn7[address] [place] [address] MICROALBUMIN,UR 15.3 mg/L (Normal) :41 Thyroid Stim Hormone (TSH) Comments: Test performed at:[facility] Uhghcvlvzw5581 [place] [address] TSH 1.22 {uIU/mL} (Normal) Range: 0.358-3.74 :41 Vitamin B12 415 pg/mL (Normal) Comments: Test performed at:[facility] Ribtawsibv2626 [place] [address] Range: 211-911 :41 Vitamin D,25 Hydroxy Comments: Test performed at:[facility] [address] [place] [address] ; will review at 09/16 appt Vitamin D 25-OH 41.4 ng/mL (Normal) Comments: Vitamin D 25(OH) Status Range Deficiency <20 ng/mL (50nmol/L) Insuffciency 20 - 30 ng/mL (50 - 75 nmol/L) Sufficiency 30 - 100 ng/mL (75 - 250 nmol/L) Toxicity >100 ng/mL (>250 nmol/L) :11 Rapid Flu (62605 x 2) Influenza A Ag neg (Normal) :11 Rapid Strep Test, Office (27885) Rapid Strep Test, Office Negative (Normal) :52 [...] CHOL 159 mg/dL (Normal) Comments: <200 mg/dL Ioblkuptx272-309 mg/dL Borderline>240 mg/dL High Risk :52 MIALB [...] CHOL 170 mg/dL (Normal) Comments: <200 mg/dL Bqxmravtl673-852 mg/dL Borderline>240 mg/dL High Risk :35 MIACRE MIALB 6.0 mg/L (Normal) tMICROCREAT 7.0 {mg/g_CRE} (Normal) CREU 85.1 mg/dL (Normal) :35 TSH 0.31 {uIU/mL} (Abnormal) Range: 0.358-3.74 :35 VITD 87.7 mg/mL (Normal) Comments: Vitamin D 25(OH) Status RangeDeficiency <20 ng/mL (50nmol/L)Insuffciency 20 - 30 ng/mL (50 - 75 nmol/L)Sufficiency 30 - 100 ng/mL (75 - 250 nmol/L)Toxicity >100 ng/mL (>250 nmol/L) :54 Urinalysis, Office (79816) UA - LEUKOCYTE ESTERASE Trace (Normal) UA - NITRITE Negative (Normal) URINE UROBILINGN DIMITRY TIMED Normal mg/dL (Normal) UA - PROTEIN Negative mg/dL (Normal) UA - PH 8 (Abnormal) UA - BLOOD Negative (Normal) UA - SPECIFIC GRAVITY 1.010 (Normal) UA - KETONES Negative mg/dL (Normal) UA - BILIRUBIN Negative (Normal) UA - GLUCOSE Negative (Normal) 39-Bix-260771:00 CBCD ANC 2.2 {X10_3/uL} (Normal) Range: 2.0-7.7 [...] 4.2-5.4 WBC 4.4 K/mm3 (Normal) Range: 4.4-11.0 36-Qpt-161607:00 CMP Comments: DR. KHANNA ORDERED TSH,CMP,CBCD,MICROALBUMIN,LIPIDHEOLI GUERRA CNP ORDERED TSH,T4F GAP 5 (Normal) Range: 5-15 [...] 7-18 GLU 60 mg/dL (Abnormal) Range: 70-110 86-Mjn-838973:00 LIPID Comments: DR. KHANNA ORDERED TSH,CMP,CBCD,MICROALBUMIN,LIPIDHEOLI GUERRA CNP ORDERED TSH,T4F VLDL 5 mg/dL (Normal) Range: 5-40 HDL 72 mg/dL (Normal) Comments: Reference RangeHDL <40 mg/dL Low HDL CholesterolHDL >or= 60 mg/dL High HDL Cholesterol LDL 87 mg/dL (Normal) Range: 0-130 CHOL 164 mg/dL (Normal) Comments: <200 mg/dL Instkrzji787-547 mg/dL Borderline>240 mg/dL High Risk TRIG 27 mg/dL (Normal) Range: 0-199 Comments: Serum Triglycerides Reference IntervalNormal <150 mg/dLBorderline high 150 - 199 mg/dLHigh 200 - 499 mg/ dLVery High > or = 500 mg/dL 25-Xun-862554:00 MIACRE tMICROCREAT 12.6 {mg/g_CRE} (Normal) CREU 44.4 mg/dL (Normal) MIALB 5.6 mg/L (Normal) :00 T4F 1.40 ng/dL (Normal) Comments: DR. KHANNA ORDERED TSH,CMP,CBCD,MICROALBUMIN,LIPIDDIONE GUERRA CNP ORDERED TSH,T4F Range: 0.76-1.46 50-Jaa-332109:00 TSH 1.28 {uIU/mL} (Normal) Comments: DR. KHANNA ORDERED TSH,CMP,CBCD,MICROALBUMIN,LIPIDDIONE GUERRA CNP ORDERED TSH,T4F Range: 0.358-3.74 11-Zil-509768:12 HgA1C , Office (75756) HgA1C , Office 6.9 % (Normal) Range: 4.6 - 7.1 6-Rcr-299114:45 URINE VEE CULTURE-DIMITRY COL Comments: PATIENT NOT FASTINGPERFORMED BY: DARREN [id number] [id number] Information: SRC:DEMARCUS [id number] COUNT (71130) Result 1 MUG (Normal) Comments: Mixed urogenital [id number] Colonies/mL Urine Culture,Comprehensive Final report (Normal) :36 Urinalysis, Office (07561) UA - BILIRUBIN Negative (Normal) UA - BLOOD Negative (Normal) UA - GLUCOSE Moderate (Normal) UA - KETONES Negative mg/dL (Normal) UA - LEUKOCYTE ESTERASE Negative (Normal) UA - NITRITE Negative (Normal) UA - PH 6.5 (Normal) UA - PROTEIN Negative mg/dL (Normal) UA - SPECIFIC GRAVITY 1.025 (Normal) URINE UROBILINGN DIMITRY TIMED Normal mg/dL (Normal) :34 HgA1C , Office (72409) HgA1C , Office 6.4 % (Normal) Range: 4.6 - 7.1 :38 THYROID Radiology Report See Note Comments: PROCEDURE: [...] Hill M.D.January 19, 2013 at 4:08:34 PM [id number] Signed TT/TT If you are the referring physician and would like to consult with theradiologist who provided this interpretation, jonah ansari contact Windy Bravo M.D. at [phone]. If this radiologist is unavailable, emmett directed to another radiologist to assist. If you are a patient with a question regarding this report, pl sorayacontactyour referring physician directly. Professional Interpretation Provided By: [employer], Phone , These documents contain legally protected and confidential healt hinformation intended only for the use of the individual or entity namedabove. If you are not the intended recipient, you are hereby notifiedthatany disclosure, copying, distribution, or other use of [facility] documents isstrictly prohibited. If you have received this information in error,pleasenotify the sender immediately and arrange for the return or destructionofthese documents. Dictated on 3 1608 by Liz CM,WindyTranscribed on 01/19/13 1610 by ITS IMPORTSign by Liz CM,Windy on 01/19/13 1611 Sign by: Windy Hill MD 3-Pmk-493625:51 EBV Acute Infection Comments: PATIENT NOT FASTINGPERFORMED BY: [facility] [id number] Information: [id number] Antibodies EBV Nuclear Antigen Ab, 7.4 {AI} [...] Negative (Normal) Comments: PATIENT NOT FASTINGPERFORMED BY: [facility] Ufwhbp5588 [facility] [id number] 4:51 Comments: The sensitivity of Heterophile antibody testing is 80-90%.Soco Wolfe IgM testing offers higher sensitivity. Written Authorization WAR (Normal) Comments: PATIENT NOT FASTINGPERFORMED BY: [facility] [id number] 4:51 Comments: Written Authorization Received.Authorization received from AGUSTINA HARRY [phone] by Shellie Silvestre :51 TSH (54137) Comments: PATIENT NOT FASTINGPERFORMED BY: [facility] [id number] TSH 0.109 {uIU/mL} (Abnormal) Range: 0.450-4.500 :51 T4, FREE (THYROXINE) Comments: PATIENT NOT FASTINGPERFORMED BY: [facility]6[address] [facility] [id number] Information: [id number] (42219) T4,Free(Direct) 2.12 ng/dL (Abnormal) Range: 0.82-1.77 8-Lev-625067:51 T3, FREE (TRIDOTHYRONINE) (00831) Comments: PATIENT NOT FASTINGPERFORMED BY: [facility] Berlin[facility]efbw7[facility] [id number] Triiodothyronine,Free,Serum 3.1 pg/mL (Normal) Range: 2.0-4.4 0-Rrm-327013:36 FOOT MIN 3 VIEWS Radiology Report See [...] Pike M.D.December 14, 2012 at 4:05:51 PM [id number] Signed GP/GP If you are the referring physician and would like to consult with theradiologist who provided this interpretation, please contact Douglas Harden at [phone]. If this radiologist is unavailable , youwill [...] destructionofthese documents. Dictated on 12/14/12 1032 by Micki Pike MDscribed on 12/14/12 1611 by ITS IMPORTSign by Salvador Oliva MD on 12/14/12 161 Sign by: Salvador Pike MD 5-Nzw-592579:35 ANKLE MIN 3 VIEWS Radiology Report See [...] Pike M.D.December 14, 2012 at 11:22:57 AM [id number] Signed GP/GP If you are the referring physician and would like to consult with theradiologist who provided this interpretation, please contact Douglas Harden at [phone]. If this radiologist is unavailable, youwi ll [...] 12/14/12 1133 Sign by: Salvador Pike MD :43 CBCMD ANC 1.6 3/uL (Abnormal) Range: 2.0-7.7 [...] HYPOGLYCEMIA.CRITICAL VALUE REPEATED AND VERIFIED. CALLED TO YBGMFC70/19/13 1308 MANDEEP ANDERSON.RESULTS READ BACK BY SAME. :43 DDIMQ 0.30 {FEUug/mL} (Normal) Range: 0.22-0.48 Comments: NORMAL D-Dimer level indicates no DVT or PE. :43 LIPID HDL 69 mg/dL (Normal) Comments: Reference RangeHDL <40 mg/dL Low HDL CholesterolHDL >or= 60 mg/dL High HDL Cholesterol LDL 75 mg/dL (Normal) Range: 0-130 VLDL 9 mg/dL (Normal) Range: 5-40 CHOL 153 mg/dL (Normal) Comments: <200 mg/dL Auuuhkaii789-879 mg/dL Borderline>240 mg/dL High Risk TRIG 43 mg/dL (Normal) Comments: Serum Triglycerides Reference IntervalNormal <150 mg/dLBorderline high 150 - 199 mg/dLHigh 200 - 499 mg/ dLVery High > or = 500 mg/dL :43 TROP < 0.02 ng/mL (Normal) Comments: TROPONIN-I EXPECTED VALUES <0.05 NEGATIVE0.06 - 0.59 AT RISK OF KS> OR = 0.60 SUGGEST KS 60-Rph-88375:43 TSH 0.06 {uIU/mL} (Abnormal) Range: 0.358-3.74 06-Zxo-335020:06 CHEST, PA AND LATERAL Radiology Report See [...] Pike M.D.October 24, 2012 at 11:17:45 AM [id number] nically Signed GP/GP If you are the referring physician and would like to consult with theradiologist who provided this interpretation, please contact Douglas Harden at [phone]. If this ra diologist is unavailable, youwill be directed to another radiologist to assist. If you are a patient with a question regarding this report, pleasecontactyour referring physician directly. Professional I nterpretation Provided By: [employer], Phone , These documents contain legally protected [...] destructionofthese documents. Dictated on 10/23/12 1706 by Shahzad CM,DukeriNoraranscribed on 10/24/12 1440 by ITS IMPORTSign by Salvador Pike MD on 10/24/12 1441 Sign by: Salvador Pike MD 29-Ykg-035815:30 HEPATOBILLIARY IMG W/PHARM INT Radiology Report See Note (Normal) Comments: CLINICAL:51-year-old female with history of right upper quadrant abdominal painandnausea. RADIONUCLIDE HEPATOBILIARY SCINTIGRAPHY COMPARISON:Gallbladder ultrasound report 07/07/12, CT of the abdomen-pel vis acjlpb49/23/12 FINDINGS:Following the intravenous administration of 5.2 mCi [...] Cholecystokinin (0.02 ug/kg) was administered intravenously over h23-kffusi period. The post CCK gallbladder ejection fraction ovhsgyptahzl76 minutes following Cholec ystokinin administration was noted [...] cystic duct syndrome) to be low. (Essence Dove al,Journal of Nuclear Medicine 32:1695, 1990). 2. 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 (Chani hameed al, Nucl Med Priscilla Sylvie Press pg. 35, 1980). Signed:Silvano Iglesias M.D.July 29, 2012 at 1:03:05 PM [id number] Signed RB/RB If you are the referring physician and would like to consult with theradiologist who provided this interpretation, please contact Douglas Sousa at [phone]. If this radiologist is unavailable, you will bedirected to another radiologist to assist. If you are a patient with a question regarding this report, pleasecontactyour referring physician directly. Professional Interpretation Provided By: [employer], Phone , T hese documents contain legally [...] destructionofthese documents. Dictated on 07/28/12 0808 by Silvano Iglesias DOTranscribed on 07/29/12 1307 by ITS IMPORTSign by Silvano Iglesias DO on 07/29/12 1308 Sign by: Silvano Iglesias DO 84-Gml-289233:57 Urinalysis, Office (16004) UA - BILIRUBIN Negative (Normal) UA - BLOOD Negative (Normal) UA - GLUCOSE Trace (Normal) Comments: 100mg UA - KETONES Negative mg/dL (Normal) UA - LEUKOCYTE ESTERASE Negative (Normal) UA - NITRITE Negative (Normal) UA - PH 7.0 (Normal) UA - PROTEIN Negative mg/dL (Normal) UA - SPECIFIC GRAVITY 1.010 (Normal) URINE UROBILINGN DIMITRY TIMED Normal mg/dL (Normal) 38-Kba-692435:35 GALLBLADDER Radiology Report See Note (Normal) Comments: [...] size of the right kidney. The right rigclhaocobieo54.5 x 4.7 x 3.7 cm. Normal renal cortex. The right cortex measures 1.0cm. There is no demonstrated renal mass or cyst. There is no righthydronephrosis. IMPRESSION:Focal right hepatic lobe well-circumscribed echogenic lesion consist entwith an hemangioma. No evidence of an acute intra-abdominal process. Signed:Tan Agee M.D.July 07, 2012 at 9:08:04 PM [id number] Signed SH/SH If you are the referring ph ysician and would like to consult with theradiologist who provided this interpretation, please contact Douglas Cohn at [phone]. If this radiologist is unavailable, youwillbe directed to [facility] ther radiologist to assist. If you are a patient with a question regarding this report, pleasecontactyour referring physician directly. 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 LMP: Postmenopausal.. TECHNIQUE: Transabdominal TECHNICAL QUALITY: Adequate. COMPARISON: CT abdom en pelvis . FINDINGS:The uterus is retroverted and is in [...] Agee M.D.July 07, 2012 at 9:28:02 PM [id number] Signed SH/SH If you are the referring physician and would like to consu lt with theradiologist who provided this interpretation, please contact Douglas Cohn at [phone]. If this radiologist is unavailable, youwillbe directed to another radiologist to assist. If you are a patient with a question regarding this report, pleasecontactyour referring physician directly. Professional Interpretation Provided By: [employer], Phone , These documents contain legally protected [...] on 07/07/122132 Sign by: Tan Agee MD 85-Zzi-39552:58 ABDOMEN/PELVIS WITH CONTRAST Radiology Report See Note [...] Ribera M.D.June 30, 2012 at 10:36:06 AM [phone] Signed MELI/MELI If you are the referring physician and would like to consult with theradiologist who provided this interpretati on, please contact Douglas Granado at . If this radiologist is unavailable,youwill be directed to another radiologist to assist. If you are a patient with a question regarding this report, pleasecontactyour referring physician directly. Professional Interpretation Provided By: Marcellusjd, Phone , These documents contain legally protected [...] IMPORTSign by Renato Guo MD on 06/30/12 114 Sign by: ____ Renato Guo MD 21-Dtc-063580:24 Urine Culture,Comprehensive Comments: PATIENT NOT FASTINGPERFORMED BY: [facility] [id number] Information: SRC:UR Q44364 Antimicrobial MIHEAD (Normal) Comments: S = Susceptible; [...] mL (Normal) Urine Final report Culture,Comprehensive (Normal) 92-Amz-718214:20 Urinalysis, Office (37156) UA - BILIRUBIN Negative (Normal) UA - [...] Osteoporosis (Renamed from OP (osteoporosis)) : Reviewed Wheel Tuner Letter Indication: Osteoporosis (Renamed from OP (osteoporosis)) Diabetes mellitus type 1, controlled : *Diabetes Education Indication: Diabetes mellitus type 1, controlled Mixed hyperlipidemia : Cholesterol mgmt Indication: Mixed hyperlipidemia Anxiety : Eprescribed prescriptions (G8553) Indication: Anxiety Accidental fall, sequela : Reviewed Wheel Tuner Letter Indication: Accidental fall, sequela Cough : [...] upper quadrant Planned Observations MICROALBUMIN: CREATININE RATIO (99605) AND (53666)Indication: Diabetes mellitus type 1, controlled On: :07 Request METABOLIC PANEL, COMPREHENSIVE (08086)Indication: Mixed hyperlipidemia On: :07 Request LIPID PANEL (30820)Indication: Mixed hyperlipidemia On: 6-Spy-640697:06 Request CBC W/AUTO DIFF WBC (02064)Indication: Arthritis, rheumatoid On: 4-Txa-223083:07 Request CBC W/AUTO DIFF WBC (49029)Indication: Chest pain with high risk for cardiac etiology On: :38 Request METABOLIC PANEL, COMPREHENSIVE (67159)Indication: Mixed hyperlipidemia On: :38 Request LIPID PANEL (09172)Indication: Mixed hyperlipidemia On: :38 Request Rapid Strep Test, Office (91068)Indication: Sore throat On: 10-Jlj-205900:51 Request Comments: negative METABOLIC PANEL, COMPREHENSIVE (97023)Indication: Diabetes mellitus type 1, controlled On: :22 Request TSH (20724)Indication: Acquired hypothyroidism On: :22 Request LIPID PANEL (79718)Indication: Mixed hyperlipidemia On: :22 Request METABOLIC PANEL, COMPREHENSIVE (61211)Indication: Mixed hyperlipidemia On: 87-Edz-876220:54 Request Vitamin D Hydroxy (65297)Indication: Osteoporosis (Renamed from OP (osteoporosis)) On: 36-Eye-822031:54 Request LIPID PANEL (75613)Indication: Mixed hyperlipidemia On: 28-Bbi-567164:53 Request Vitamin D Hydroxy (79116)Indication: Osteoporosis (Renamed from OP (osteoporosis)) On: 90-Cdq-471688:42 Request TSH (75396)Indication: Acquired hypothyroidism On: 49-Azl-377194:42 Request CBC W/AUTO DIFF WBC (50022)Indication: Diabetes mellitus type 1, controlled On: 70-Ndw-209723:42 Request METABOLIC PANEL, COMPREHENSIVE (51166)Indication: Diabetes mellitus type 1, controlled On: 68-Wzw-205942:42 Request LIPID PANEL (34733)Indication: Mixed hyperlipidemia On: 99-Bok-164580:42 Request UPEP (48425)Indication: Osteoporosis (Renamed from OP (osteoporosis)) On: :43 Request SPEP (84594)Indication: Osteoporosis (Renamed from OP (osteoporosis)) On: 0-Rga-190531:43 Request Throat Culture (12200)Indication: Acute pharyngitis On: :11 Request Influenza A&B Viral Culture (90573)Indication: Acute pharyngitis On: 42-Ofm-66618:11 Request Vitamin D Hydroxy (16122)Indication: Osteopenia On: 57-Cov-809743:25 Request LIPID PANEL (41596)Indication: Diabetes mellitus type 1, controlled On: 16-Hsi-312067:00 Request TSH (92368)Indication: Multinodular goiter On: 15-Yhs-967354:00 Request MICROALBUMIN: CREATININE RATIO (56130) AND (14117)Indication: Diabetes mellitus type 1, controlled On: :59 Request CBC WITH MANUAL DIFF (81119)Indication: Diabetes mellitus type 1, controlled On: 64-Vfb-704975:59 Request METABOLIC PANEL, COMPREHENSIVE (72072)Indication: Diabetes mellitus type 1, controlled On: 42-Mks-814429:59 Request TSH (61351)Indication: Acquired hypothyroidism On: 8-Txa-552155:17 Request Comments: 6 weeks TSH (64768)Indication: Abnormal TSH On: :52 Request T4, FREE (THYROXINE) (40317)Indication: Abnormal TSH On: :52 Request T3, FREE (TRIDOTHYRONINE) (76465)Indication: Abnormal TSH On: :52 Request EBV Panel (10311)Indication: Fatigue On: :55 Request MONOSPOT TEST (56338)Indication: Fatigue On: :54 Request LIPID PANEL (35572)Indication: Mixed hyperlipidemia On: 70-Ivw-71280:21 Request HEPATIC FUNCTION PANEL (48170)Indication: Mixed hyperlipidemia On: :20 Request TSH (16544)Indication: Acquired hypothyroidism On: :17 Request T4, FREE (THYROXINE) (71063)Indication: Acquired hypothyroidism On: :17 Request T3, FREE (TRIDOTHYRONINE) (94630)Indication: Acquired hypothyroidism On: :17 Request ASSAY, TROPONIN, QUANTITATIVE (aka Troponin I) (95857)Indication: CHEST PAIN On: 23-Cfp-989695:28 Request D-Dimer (26267)Indication: CHEST PAIN On: 67-Esl-665566:28 Request CBC WITH MANUAL DIFF (84407)Indication: CHEST PAIN On: 06-Bdp-307645:27 Request METABOLIC PANEL, COMPREHENSIVE (42350)Indication: CHEST PAIN On: 74-Pgl-039431:27 Request TSH (03154)Indication: Acquired hypothyroidism On: 37-Mbe-700923:27 Request LIPID PANEL (91346)Indication: Mixed hyperlipidemia On: 57-Vvz-470222:26 Request URINE VEE CULTURE-IDENTIFICATN (34591)Indication: Urinary frequency On: 0-Vhh-171186:31 Request CBC WITH MANUAL DIFF (58872)Indication: Abdominal pain, acute, right upper quadrant On: 36-Jdc-271671:42 Request LIPID PANEL (45319)Indication: Mixed hyperlipidemia On: 24-Sgr-062109:24 Request CBC WITH MANUAL DIFF (24692)Indication: Mixed hyperlipidemia On: 31-Dut-391118:24 Request METABOLIC PANEL, COMPREHENSIVE (01948)Indication: Mixed hyperlipidemia On: :24 Request Planned Encounters Medical; [facility] 3 Month FU - On: 24-Nov-2018 10:30 [facility] Fast DO, Karin A Fast DO, Karin A Planned Procedures DEXA SCAN AXIAL SKELETON On: 25-Aug-2018 Intent (58647)By: Fast DO, Karin A Fast Comments: october [...] DIGITAL TOMOSYNTHESIS On: 25-Aug-2018 Intent OF BREAST (54606)By: Fast DO, Comments: october Karin A Fast DO, Karin A Radiology - Cervical SpineBy: On: 21-Jun-2018 Intent Fast DO, Karin A Fast DO, Karin A Rcnybvoph-Wss-Aripz (00824)By: On: 21-Jun-2018 Intent Fast DO, Karin A Fast DO, Karin A Flu Vaccine (Quadrivalent) On: 18-May-2018 Intent 70759Ez: Visit, Nurse Nuclear Stress Test/Stress On: 14-Oct-2017 Intent SPECT/AdenosineBy: Fast DO, Karin A Fast DO, Karin A SCREENING DIGITAL TOMOSYNTHESIS On: 14-Oct-2017 Intent OF BREAST (02749)By: Fast DO, Karin A Fast DO, Karin A Ultrasound - ThyroidBy: Fast DO, On: 14-Oct-2017 Intent Karin A Fast DO, Karin A ELECTROCARDIOGRAM, COMPLETE (ECG) On: 14-Oct-2017 Intent (87613)By: Fast DO, Karin A Fast Comments: ekg [...] (Limited On: 02-Feb-2017 Intent Area or Organs)By: Fast DO, Karin Comments: right upper quad A Fast DO, Karin A ELECTROCARDIOGRAM, COMPLETE (ECG) On: 02-Feb-2017 Intent (49271)By: Fast DO, Karin A Fast Comments: ekg showed normal sinus rhythym, normal axis, no acute st/t wave changes DO, Karin A MRI OF RIGHT BREAST WITH AND On: 02-Nov-2016 Intent WITHOUT CONTRAST (C8905)By: Fast DO, Karin A Fast DO, Karin A MAMMOGRAM BREAST BILATERAL On: 25-Oct-2016 Intent DIAGNOSTIC (01621)By: Fast DO, Karin A Fast DO, Karin A Ultrasound - Breast - RightBy: On: 22-Oct-2016 Intent Fast DO, Karin A Fast DO, Karin A Comments: axilla Ultrasound - ThyroidBy: Fast DO, On: 22-Oct-2016 Intent Karin A Fast DO, Karin A Radiology - Chest- PA and LatBy: On: 13-Sep-2016 Intent Keena Thomas DO Aerosol Treatment (79699)By: On: 13-Sep-2016 Intent Keena Thomas DO Comments: more a/e- chest less tight- gave rx for neb Flu Vaccine (Quadrivalent) On: 26-Apr-2016 Intent 88937Bg: Keena Thomas DO Comments: Lot:[id number]:02/04/17mt:0.5mlRoute:IMSite: L DltdGiven By: BUBBA Fernandez signed Radiology - Chest- PA and LatBy: On: 09-Dec-2015 Intent Fast DO, Karin A Fast DO, Karin A Comments: stat Aerosol Treatment (70263)By: Colton On: 09-Dec-2015 Intent DO, Karin A Fast DO, Karin A Ultrasound - ThyroidBy: Fast DO, On: 27-Oct-2015 Intent Karin A Fast DO, Karin A Flu Vaccine (Quadrivalent) On: 20-May-2015 Intent 88484Ec: Fast DO, Karin A Colton Comments: Lot:[id number]:02/05/16Dose:0.5mLRoute:IMSite:L DltdGiven By:CLIFTON signed DO, Karin A IMMUNIZ ADMNIN, 1 VAC, SNGL/COMBO On: 17-May-2014 Intent (69333)By: Colton HARRIS Karin A Colton Comments: lot:[id number]:02/04/2015dose:0.5mLRoute: IMlocation: L armgiven by: fausto DO, Karin A FLU VAC, SPLIT, >3 YEARS, On: 17-May-2014 Intent INTRAMUSC (46381)By: Jessica Javier DEXA SCAN AXIAL SKELETON On: 29-Apr-2014 Intent (99367)By: Fast DO, Karin A Fast DO, Karin A CT - Abdomen & Pelvis (IV On: 01-Jan-2014 Intent Contrast Needed)By: Noe CM, Comments: assure check kidney stone and any other pathology Roseanne Mccarty Eprescribed prescriptions On: 01-Jan-2014 Intent (G8553)By: Roseanne Liu MD Ultrasound - RenalBy: Isaac ROJAS, On: 24-Dec-2013 Intent Vanita Cutler Radiology - Lumbar SpineBy: Ciesbradford On: 24-Dec-2013 Intent Vanita ROJAS IMMUNIZ ADMNIN, 1 VAC, SNGL/COMBO On: 03-Dec-2013 Intent (93525)By: Visit, Nurse Comments: Lot: [id number]: [id number]: single unit dose vialRoute:SubcutaneouslySite: L deltoid regionGiven by: NICKY GonsalesNReconstituted with Sterile Diluent Lot #[id number], exp. date , given within 10 minutes of reconstitution. ZOSTER VACC, SC (28611)By: Visit, On: 03-Dec-2013 Intent Nurse Ultrasound - ThyroidBy: Fast DO, On: 16-Oct-2013 Intent Karin A Fast DO, Karin A Comments: january EsophagramBy: Fast DO, Karin A On: 16-Oct-2013 Intent Fast DO, Karin A Comments: with 12 mm tablet Eprescribed prescriptions On: 16-Oct-2013 Intent (G8553)By: Fast DO, Karin A Fast DO, Karin A MAMMOGRAM, SCREENING, BOTH On: 16-May-2013 Intent BREASTS (54634)By: Fast DO, Karin A Fast DO, Karin A EsophagramBy: Fast DO, Karin A On: 16-May-2013 Intent Fast DO, Karin A Comments: with 12 mmm tablet FLU VAC, SPLIT, >3 YEARS, On: 16-May-2013 Intent INTRAMUSC (58917)By: Pedro, Comments: Lot #:[id number] date:mount given:0.5mlRoute: IMSite given: L dltdVIS and ABN signedGiven by: AMI Quiroga IMMUNIZ ADMNIN, 1 VAC, SNGL/COMBO On: 16-May-2013 Intent (97247)By: María Vasuqez Eprescribed prescriptions On: 16-May-2013 Intent (G8553)By: María Vasquez Ultrasound - ThyroidBy: Ciesa On: 17-Jan-2013 Intent Vanita ROJAS Eprescribed prescriptions On: 17-Jan-2013 Intent (G8553)By: Magnolia Ricketts LPN Ear Irrigation (70297)By: Ciesa On: 12-Jan-2013 Intent Vanita ROJAS Comments: IrrigationSite- R and L earAmount/Color/Quality - small amount of dark yellow/soft cerumen Toelrated well: yesCurette Used: noChelsea, WILNER Wax CurettesBy: Isaac HYDRODYNAMICS PROFESSOR, Nesha On: 12-Jan-2013 Intent Eprescribed prescriptions On: 12-Jan-2013 Intent (G8553)By: Leola Madsen Radiology - Foot - RightBy: Fast On: 14-Dec-2012 Intent DO, Karin A Fast DO, Karin A Radiology - Ankle - RightBy: Fast On: 14-Dec-2012 Intent DO, Karin A Fast DO, Karin A Radiology - ChestBy: Fast DO, On: 23-Oct-2012 Intent Karin A Fast DO, Karin A Comments: pa and lateral EKG (21288)By: María Vasquez On: 23-Oct-2012 Intent Comments: ekg [...] DO, Karin A TDAP VACCINE >7 IM (55661)By: On: 07-Apr-2012 Intent María Vasquez Comments: Lot #:[id number] date:mount given:0.5mlRoute: IMSite given:left deltoidGiven by: AMI Quiroga Eprescribed prescriptions On: 07-Apr-2012 Intent (G8553)By: Fast DO, Karin A Fast DO, Karin A PNEUM VAC ADLT/IMUMNOSPR, On: 07-Apr-2012 Intent SB/INTRM (26634)By: Pedro, Comments: received in 2010 from [facility] [...] hyperlipidemia : DISCONTINUED - METABOLIC PANEL, COMPREHENSIVE (63149) Indication: Mixed hyperlipidemia Body mass index (BMI) [...] Anxiety : Patient Instructions Indication: Anxiety Encounters Review On: 25-Aug-2018 10:04 Encounter Reason: Follow up for chronic medical issues - The patient feels well with minor complaints (Watched her granddaugher the other day who had pink eye. She hasn't noticed any crusting in her eyes but they have fe lt very itchy. Overall nothing new, same [...] current emotional problems. Note for Physical exam: [facility] Physical- she is on arava- now [...] some irritaiton-[facility], Non-smoker, Body [...] throat. Note for Earache: Pt went to [facility] on tuesday evening. They gave her amox 500mg tid and neomycin ear drops.- was thumping - last week and felt sick to her stomach- - took advil and that helped- but then came back and went to [facility]- they saw wax- tried to wash out [...] (it's getting better, is walking at the [employer] End: 31-Mar-2015 21:31 h is helping to [...] on this - she going to retry luchosan juan Encounter Diagnosis: Diabetes, Type I, contolled (250.01), [...] endo- she is doiing 7 drops [place] 00272 units a week- she had egd done [...] colon cancer at age 80- think [place] d-she went gluten free and feels absolutely amazing [...] Pain: really pretty b ad tue- had macedonian - beans and sauce- gets some pressure and bloating- 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- bowels are regular- no blood- [...] one wants her to have estrogen- 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 low dose 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- she didnt do - paxil made her feel terrible- zoloft made her tired - never tried cymbalta ??and is willing - she sees Jasvir Cardoza for her ra and on orencia and doing well- and mauro s appt in march with Guera Clifford- at [facility]- no target organ damge and dx age 8 with dm- and ra was diagnosed 44Encounter Diagnosis: Arthritis, rheumatoid (714.0), Anxiety (300.00), Osteopenia (733.90), Hyperlipidemia, Mixed (272.2), Hypothyroidism (244.9), Diabetes, Type I, contolled (250.01), Menopause (627.2) [facility] Payers Sandy GRIDER/REDD HENNING; a guarantor
--- OUTSIDE RECORDS SUMMARY | 2018-10-30 02:09 | XMS RPT_ITS | Continuity of Care Document ---
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 sees [facility] vision cliniic every 2months Status: Active 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, 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 Osteopenia (M85.80, 733.90) Comments: she is working thru with rheum to get reclast Status: Active Osteoporosis (M81.0, 733.00) Comments: she is supposed to get reclast thru her endocrine Status: Active Osteoporosis (Renamed from OP (osteoporosis)) (M81.0, 733.00) Comments: at this point she had ostenecrosis of jaw so not a candidate for meds Status: Active Otitis Externa (380.10) Comments: stay on antiobitocs and drops Status: Active Pneumococcal vaccination given (Z23, V06.6) Comments: Lot:[id number]:04/26/18Dose:0.5mgRoute:imSite:herminia Estes By:CLIFTON signed Status: Active Post-nasal drip (R09.82, 784.91) Status: Active Pregnancies () Comments: 3 Status: Active PVD (peripheral vascular disease) (I73.9, 443.9) Status: Active Rib pain on right side (R07.81, 786.50) Status: Active screening Status: Active Sinusitis, acute (J01.90, 461.9) Status: Active Sore throat (J02.9, 462) Status: Active Strep throat exposure (Z20.818, V01.89) Status: Active Unspecified Diagnosis Status: Active Medications Name Dates Details Amoxicillin 875 MG Oral Tablet 1 (one) Tablet bid for 0 days Quantity: 14 {Tablet} Refills: 0 Ordered:21-Jun-2018 Fast DO, Karin AFast DO, Karin A Start : 21-Jun-2018 Active Arava 10 MG Oral Tablet 1 (one) Tablet Tablet qd for 0 days Quantity: 30 {Tablet} Refills: 4 Ordered:08-Apr-2017 Quin Randolph SHASHA Start : 02-Feb-2017 Active CELEBREX, 200MG (Oral Capsule) 1 Capsule bid, prn for 30 days Quantity: 60 {Capsule} Refills: 0 Ordered:24-Dec-2013 Vanita Gray CNP Start : 24-Dec-2013 Active FLAX SEED OIL, 1000MG (Oral Capsule) 1 Daily (1000 MG) Active FOLIC ACID, 1MG (Oral Tablet) 1 Tablet Daily for 30 days Quantity: 30 {Tablet} Refills: 0 Ordered:22-Oct-2016 PedroMaría Start : 23-Feb-2012 Active LOSARTAN POTASSIUM, 25MG (Oral Tablet) 1 tab Tablet qd for 30 days Quantity: 30 {Tablet} Refills: 3 Ordered:16-May-2013 Karin Khanna DO, DO, Debra A Start : 16-May-2013 Active [...] Refills: 3 Ordered:13-Apr-2013 Karin Khanna DO, DO, Debra A Start : 13-Apr-2013 Active Comments:new dose NOVOLOG FLEXPEN, 100UNIT/ML (Subcutaneous Solution) 3 (three) Solution 4 units q am, 4-5 at noon and 4-5 q evening for 0 days Quantity: 5 {Solution} Refills: 0 Ordered:16-May-2013 Karin Khanna DO, DO, Debra A Start : 16-May-2013 Active Omeprazole 20 MG Oral Tablet Delayed Release 1 (one) Tablet DR qd in am for 30 days Quantity: 30 {Capsule} Refills: 4 Ordered:14-Feb-2018 Karin Khanna DO, DO, Debra A Start : 14-Feb-2018 Active ORENCIA, 125MG/ML (Subcutaneous Solution) 1 Solution uad for 0 days Quantity: 1 {Solution} Refills: 0 Ordered:12-Jan-2013 Roseanne Liu MD Start : 12-Jan-2013 Active Comments:Rhemotologist Promethazine HCl 25 MG Oral Tablet 1 (one) Tablet Tablet q8hrs prn for 0 days Quantity: 15 {Tablet} Refills: 0 Ordered:28-Mar-2018 MARILU Burkett Start : 28-Mar-2018 Active SIMVASTATIN, 5MG (Oral Tablet) 1 Tablet qhs for 0 days Quantity: 30 {Tablet} Refills: 4 Ordered:14-Dec-2012 Leola Madsen Start : 14-Dec-2012 Active Synthroid 100 MCG Oral Tablet 1 (one) Tablet qd for 0 days Quantity: 30 {Tablet} Refills: 11 Ordered:14-Feb-2018 Colton HARRIS, Karin TSANGarpit , Karin A Start : 14-Feb-2018 Active Comments:Dispense as writtenNo Generics Tresiba FlexTouch 100 UNIT/ML Subcutaneous Solution Pen-injector 16 units q am (100 UNIT/ML) Active VITAMIN C, 1000MG (Oral Tablet) 2 BID (1000 MG) Active VITAMIN E, 400UNIT (Oral Capsule) 1 cap daily (400 UNIT) Active Xanax 0.5 MG Oral Tablet 1 Tablet qhs prn for 0 days Quantity: 30 {Tablet} Refills: 0 Ordered:14-Feb-2018 Colton HARRIS, Karin Babin DO, Karin A Start : 14-Feb-2018 Active Comments:thirty Augmentin 875-125 MG Oral Tablet 1 (one) [...] 10 days Quantity: 20 {Tablet} Refills: 0 Ordered:30-Nov-2012 Fast DO, Karin AFast DO, Karin A [...] Start : 07-Aug-2014 End : 26-Apr-2016 Inactive TraZODone HCl 50 MG Oral Tablet 1 (one) Tablet qhs prn for 0 days Quantity: 30 {Tablet} Refills: 3 Ordered:14-Feb-2018 Fast DO, Karin AFast DO, Karin A Start : 11-Nov-2017 End : 14-Feb-2018 Inactive VITAMIN B COMPLEX (Oral Tablet) 1 Daily Inactive ACTONEL, 150MG (Oral Tablet) 1 Tablet monthly for 30 days Quantity: 1 {Tablet} Refills: 0 Ordered:23-Oct-2012 Karin Khanna DO, DO, Debra A Start : 23-Oct-2012 End : 23-Oct-2012 Discontinued Albuterol Sulfate (2.5 MG/3ML) 0.083% Inhalation Nebulization Solution 1 (one) Nebulized Soln Nebulized Soln q 6hr while awake for 0 days Quantity: 1 {Box} Refills: 0 Ordered:15-Nov-2016 Slarb Leigh Ann PULLIAM Start : 13-Sep-2016 End : 15-Nov-2016 Discontinued [...] 1 {QS} Refills: 2 Ordered:29-Apr-2014 Karin Khanna DO, DO, Debra A Start : 29-Apr-2014 End : 05-Aug-2017 Discontinued Comments:This order discontinued per [employer]. SYNTHROID, 150MCG (Oral Tablet) uad Tablet qd and 1/2 tab on Sundays for 0 days Quantity: 90 {Tablet} Refills: 0 Ordered:16-May-2013 Karin Khanna DO, DO, Debra A Start : 16-May-2013 End : 16-May-2013 Discontinued Dispense as Written SYNTHROID, 150MCG (Oral Tablet) uad Tablet qd and 1/2 tab on Sundays for 0 days Quantity: 30 {Tablet} Refills: 6 Ordered:16-May-2013 Karin Khanna DO, DO, Debra A Start : 16-May-2013 End : 16-May-2013 Discontinued Dispense as Written ZESTRIL, 5MG (Oral Tablet) 1 Tablet daily for 30 days Quantity: 30 {Tablet} Refills: 3 Ordered:25-Jul-2012 Karin Khanna DO, DO, Debra A Start : 25-Jul-2012 End : 25-Jul-2012 [...] Status: Inactive as of 26-Apr-2016 Vaccine for vcefvtgfyc-fupmegx-zfgggjkyj with poliomyelitis (Z23, V06.3) Status: Inactive as [...] Ligation Completed Comments: 1996 Date Value Details 28-Jul-2018 Re-Evaluation - PT (1) Result: Comments: See Note; NOTES: [facility] [address] [place], [place] [address] Fax [facility] MR#: [id number] Acct: [id number] Name: CHELSEA HENNING Rep #: [id number] : 1960 57 From: Kiki Thomas DPT Referring Dr.: Karin Khanna DO Status: REG RCR Insurance: ANT HEM SELF PAY INSURANCE Karin Khanna DO, It has been my pleasure to treat CHELSEA HENNING over the last 8 visits for Cervical Radiculopathy. Please see the progress note below for an update on the [facility] therapy plan of care! Subjective: Patient [...] in available range, elbow 4+/5, Wrist: 4+/5, Desulfurizer Hand: diminshed but equal the other side. Reflex: [...] do not hesitate to contact me at [phone] by phone or if you have questions or concerns regarding this new plan of care! Sincerely, Kiki Thomas, DPT <Elec tronically signed by Kiki Thomas DPT> 07/28/18 1058 CC: Karin Khanna DO ELR Signed For Medicare only, by signing this I certify the plan of care. Physicians Signature Date 10-Jul-2018 Inital Evaluation (1) - PT Result: Comments: See Note; NOTES: [facility] [address] [place] [address] Fax REHABILITATION SERVICES INITIAL EVALUATION MR#: [id number] Acct: [id number] Name: CHELSEA HENNING Rep #: [id number] : 1960 57 From: Kiki Thomas DPT Referring Dr.: Karin Khanna DO Status: REG RCR Insurance: ANTHEM SELF PAY I NSURANCE Patient's Visit Information CHELSEA HENNING is a 57 year old F referred to Physical Therapy by Karin Khanna DO with a diagnosis of Cervical Radiculopathy. Date of Evaluation: 07/10/18 [facility] Therapist: Kiki Thomas - Visit Plan [...] her neck. Tried to have massage at [facility] which made it feel better but then had another 1 and felt ho rrible by another massage therapist then back to origional then it was okay again. Swathi who is a CHEESEMAKER told her to hold off on the massage until she figured out whats going on. Right now its moderate pa in without any rhyme or reason. Last massage was 2 weeks ago around . It is very restrictive and giving her [...] numbness but it comes and goes. Worst: 8/10 consta nt pain unable to determine what [...] in available range, elbow 4/5, Wrist: 4/5, Desulfurizer Hand: diminshed but eq ual the other side. [...] to be FAXED BACK to us at [phone] for Medicare purposes. For Medicare only, by signing this I certify the plan of care. Please let me know if there are questions or concerns regarding this plan of care. Physician Signature: Date: <Electronica zach signed by Kiki Thomas DPT> 07/10/18 1051 CC: Karin Khanna DO ELR Signed 21-Jun-2018 Cerv Spine 4 or 5 Views Result: Comments: See Note; NOTES: [facility] Imaging Services [address] [place] [address] Cerv Spine 4 or 5 Views MR#: [id number] Acct: [id number] Name: CHELSEA HENNING Rep #: [id number] : 1960 F 57 From: Silvano Decker MD PCP: Karin Khanna DO Status: REG CLI Study: Cerv Spine 4 or 5 Views Date of Exam: 06/21/18 Exam# [id number] Ordering Dr: Karin Khanna DO STUDY: X-RAY [...] Service support , CC: Karin Khanna DO Jet Pilot: Signed 21-Jun-2018 Ribs Uni Min 3V w/PA Chest Result: Comments: See Note; NOTES: [facility] Imaging Services [address] [place] [address] Ribs Uni Min 3V w/PA Chest MR#: [id number] Acct: [id number] Name: CHELSEA HENNING Rep #: [id number] : 1960 F 57 From: Silvano Decker MD PCP: Karin Khanna DO Status: REG CLI Study: Ribs Uni Min 3V w/PA Chest Date of Exam: 06/21/18 Exam# [id number] Ordering Dr: Karin Khanna DO STUDY: X-R [...] Signed: Silvano Decker, at 17:51 EST Tel [phone], Service support , CC: Karin Khanna DO Jet Pilot: Signed 01-Nov-2017 SCREENING MAMM (CAD), BILAT Result: Comments: See Note; NOTES: [facility] Imaging Services [address] [place] [address] SCREENING MAMM (CAD), BILAT MR#: [id number] Acct: [id number] Name: CHELSEA HENNING Rep #: [id number] : 1960 F 56 From: Chris Bullock MD PCP: Karin Khanna DO Status: REG CLI Study: SCREENING MAMM (CAD), BILAT Date of Exam: 11/01/17 Exam# [id number] Ordering Dr: Karin Khanna DO MAMMOGRAPH Y [...] Service support , CC: Karin Khanna DO Jet Pilot: Signed 01-Nov-2017 Thyroid Result: Comments: See Note; NOTES: [facility] Imaging Services [address] [place], [place] [address] [place] [address] Thyroid MR#: [id number] Acct: [id number] Name: CHELSEA HENNING Rep #: [id number] : [birth year] F 56 From: Rajeev Farias DO PCP: Karin Khanna DO Status: REG CLI Study: Thyroid Date of Exam: 11/01/17 Exam# [id number] Ordering Dr: Karin Khanna DO STUDY: THYROID [...] Signed: Aaron Fraire at 16:25 EDT Tel [phone], Service support , CC: Karin Khanna DO Jet Pilot: Signed 26-Oct-2017 Stress Report Result: Comments: See Note; NOTES: [facility] Cardiovascular Services [address] [place] [address] MR#: [id number] Acct: [id number] Name: JUVENCIOILAN THOMPSONMikey Cutler Rep #: [id number] : 1960 56 From: Romel Martinez MD [...] DO Date Dictated: 10/26/17913 Date Transcribed: 10/26/17913 Jet Pilot: CO Signed 08-Apr-2017 Foot min 3 Views Result: Comments: See Note; NOTES: [facility] Imaging Services [address] [place] [address] Foot min 3 Views MR#: [id number] Acct: [id number] Name: CHELSEA HENNING Rep #: [id number] : 1960 F 56 From: Rajiv Shanks MD PCP: Karin Khanna DO Status: REG CLI Study: Foot min 3 Views Date of Exam: 04/08/17 Exam# [id number] Ordering Dr: Karin Khanna DO STUDY: X-RAY [...] support , Fax CC: Karin Khanna DO Jet Pilot: Signed 02-Mar-2017 Thoracic Spine 3 Views Result: Comments: See Note; NOTES: [facility] Imaging Services [address] [place] [address] Verdana 4d Thoracic Spine 3 Views MR#: [id number] Acct: [id number] Name: CHELSEA HENNING Rep #: [id number] : 1960 F 56 From: Yoan Gray MD PCP: Karin Khanna DO Status: REG CLI Study: Thoracic Spine 3 Views Date of Exam: 03/02/17 Exam# [id number] Ordering Dr: Karin Khanna DO STUDY : [...] Service support , CC: Karin Khanna DO Jet Pilot: Signed 23-Feb-2017 NCS and/or EMG Patient Result: Comments: See Note; NOTES: [facility] Pulmonary Services/Neurology [address] [place] [address] MR#: [id number] Acct: [id number] Name: CHELSEA HENNING Rep #: [id number] : 04/1961 56 From: Radha Hoovre MD Referring Dr: Dione Guerra CHEESEMAKER-C Status: REG CLI Ordering Dr: Date: Location: [facility] Sex: F C NCS and/or EMG Patient [...] Khanna DO Date Dictated: 02/23/1734 Date Transcribed: 02/23/17833 Jet Pilot: AA Signed 03-Feb-2017 Abdomen Limited Result: Comments: See Note; NOTES: [facility] Imaging Services [address] [place] [address] Verdana 4d Abdomen Limited MR#: [id number] Acct: [id number] Name: JUVENCIOCHELSEA Rep #: [id number] : 1960 F 56 From: Salvador Pike MD PCP: Karin Khanna DO Status: REG CLI Study: Abdomen Limited Date of Exam: 02/03/17 Exam# [id number] Ordering Dr: Karin Khanna DO STUDY: ABDOMINAL [...] Salvador Pike MD at 14:21 EDT Tel [phone], Service support , CC: Karin Khanna DO Jet Pilot: Signed 10-Nov-2016 Breast w/o and/or W Cont Bilat Result: Comments: See Note; NOTES: [facility] Imaging Services [address] [place] [address] Verdana 4d Breast w/o and/or W Cont Bilat MR#: [id number] Acct: [id number] Name: CATHERINE HENNING E Rep #: [id number] : 1960 F 55 From: Terrell Schroeder MD PCP: Karin Khanna DO Status: REG CLI Study: Breast w/o and/or W Cont Bilat Date of Exam: 11/10/16 Exam# [id number] Ordering Dr: Karin Khanna DO STUDY: BILATERAL [...] MD at 16:15 EDT , Service support [phone], CC: Karin Khanna DO Jet Pilot: Signed 29-Oct-2016 Breast Limited Unilateral Result: Comments: See Note; NOTES: [facility] Imaging Services [address] [place] [address] Verdana 4d Breast Limited Unilateral MR#: [id number] Acct: [id number] Name: CHELSEA HENNING Rep #: [id number] : 1960 F 55 From: Salvador Pike MD PCP: Keena Thomas DO Status: REG CLI Study: Breast Limited Unilateral Date of Exam: 10/29/16 Exam# [id number] Ordering Dr: Zak Khanna DO STUDY: ULTRASOUND [...] Pike MD 2 at 15:27 EDT Tel [phone], Service support [phone], CC: Karin Khanna DO; Keena Thomas DO Jet Pilot: Signed 29-Oct-2016 DIAG MAMM W/CAD, BILAT Result: Comments: See Note; NOTES: [facility] Imaging Services [address] [place] [address] Verdana 4d DIAG MAMM W/CAD, BILAT MR#: [id number] Acct: [id number] Name: CHELSEA HENNING Rep #: [id number] : 1960 F 55 From: Salvador Pike MD PCP: Keena Thomas DO Status: REG CLI Study: DIAG MAMM W/CAD, BILAT Date of Exam: 10/29/16 Exam# [id number] Ordering Dr: Karin Khanna DO MAMMOGRAPHY - [...] Helio Pike MD at 14:53 EDT Tel [phone], Service support [phone], CC: Karin Khanna DO; Keena Thomas DO Jet Pilot: Signed 26-Oct-2016 Thyroid Result: Comments: See Note; NOTES: [facility] Imaging Services [address] [place] [address] Verdana 4d Thyroid MR#: [id number] Acct: [id number] Name: CHELSEA HENNING He Rep #: [id number] D OB: 1960 F 55 From: Windy Hill MD PCP: Karin Khanna DO Status: REG CLI Study: Thyroid Date of Exam: 10/26/16 Exam# [id number] Ordering Dr: Karin Khanna DO STUDY: THYROID [...] upper pole nodule not substantially changed on jket-at-biwr comparison from November 23, 2013. 5 x 4 x 3 mm solid upper pole nodule of the left thyroid not substantially changed on zmdi-nn-qrxg comparison from November 23, 2013. Electronically Signed: Windy Hill MD at 15:40 EDT , Service support [phone], CC: Karin Khanna DO Jet Pilot: Signed 30-Sep-2016 Dexa Bone Density Study (HP) Result: Comments: See Note; NOTES: [facility] Imaging Services [address] [place] [address] Verdana 4d Dexa Bone Density Study (HP) MR#: [id number] Acct: [id number] Name: CHELSEA HENNING Rep #: [id number] : 1960 F 55 From: Salvador Pike MD PCP: Keena Thomas DO Status: REG CLI Study: Dexa Bone Density Study (HP) Date of Exam: 09/30/16 Exam# [id number] Ordering Dr: Linnea Ricardo Out o. STUDY: DUAL ENERGY X-RAY ABSORPTIOMETRY [...] Salvador Pike MD at 13:49 EST Tel [phone], Service support [phone], Fax CC: Dione Guerra; Keena Thomas DO; OUT OF TOWN DOCTOR Jet Pilot: Signed 16-Sep-2016 Emergency Department Summary Result: Comments: See Note; NOTES: [facility] Medical Records Department [address] [place] [address] Emergency Department Summary MR#: [id number] Acct: [id number] Name: CHELSEA HENNING Rep #: [id number] : 1960 55 From: Billy Varela DO [...] plaster, AP splint and she was given [place]. Follow up will be with orthopedics. CLINICAL IMPRESSION: 1. Right distal radius fracture. 2. Splint by physician. Billy Varela DO T: [facility] JOB: [id number] 09/16/16 2335 <Electronically signed by Billy Varela DO> Date Billy Varela DO Cosigner Signature (If Indicated): Date CC: Keena Thomas DO Date Dictated: 09/16/161905 Date Transcribed: 09/16/161905 Jet Pilot: Signed 16-Sep-2016 Discharge Instruction Result: Comments: See Note; NOTES: [facility] Medical Records Department [address] [place] [address] Discharge Instruction 09/16/161909 MR#: [id number] Acct: [id number] Name: CHELSEA HENNING Rep #: [id number] : 1960 55 From: Billy Varela DO [...] your Primary Care Provider. Call [facility] ([phone]) or report to the closest Emergency Room. Call 911 if necessary. 09/16/16 191 & amp;#60;Electronically signed by Billy Varela DO> Date Billy Varela DO Cosigner Signature (If Indicated): Date CC: Keena Thomas DO 16-Sep-2016 Discharge Instruction Result: Comments: See Note; NOTES: [facility] Medical Records Department [address] [place] [address] Discharge Instruction 09/16/16 190 MR#: [id number] Acct: [id number] Name: CHELSEA HENNING Rep #: [id number] : 1960 55 From: Billy Varela DO PCP: Keena Thomas DO Status: PRE ER ED Disposition - Plan for ED Patient: Disposition: Home or Assisted Living Chief Complaint: U pper Extremity Injury Instructions: ED Fx Wrist General Prescriptions: Hydrocodone Bitart/Apap 5-325 [[place] 5/325] 1 - 2 tablet PO Q4H [...] your Primary Care Provider. Call [facility] ([phone]) or report to the closest Emergency Room. Call [phone] if necessary. 09/16/16 190 <Electronically signed by Billy Varela DO> Date Billy Varela DO Cosigner Signature (If Indicated): Date CC: Keena Thomas DO 16-Sep-2016 Wrist min 3 Views Result: Comments: See Note; NOTES: [facility] Imaging Services [address] [place] [address] Verdana 4d Wrist min 3 Views MR#: [id number] Acct: [id number] Name: CHELSEA HENNING Rep #: [id number] : 1960 F 55 From: Renato Maria MD PCP: Keena Thomas DO Status: REG ER Study: Wrist min 3 Views Date of Exam: 09/16/16 Exam# [id number] Ordering Dr: Billy Varela DO STUDY: X-RA [...] MD at 19:21 EST , Service support [phone], CC: Billy Varela DO; Keena Thomas DO Jet Pilot: Signed 13-Sep-2016 Chest PA and Lateral Result: Comments: See Note; NOTES: [facility] Imaging Services [address] [place] [address] Verdana 4d Chest PA and Lateral MR#: [id number] Acct: [id number] Name: CHELSEA HENNING Rep # : [id number] : 1960 F 55 From: Salvador Pike MD PCP: Keena Thomas DO Status: REG CLI Study: Chest PA and Lateral Date of Exam: 09/13/16 Exam# [id number] Ordering Dr: Keena Thomas DO STUDY: X-RAY [...] Salvador Pike MD at 11:36 EST Tel [phone], Service support [phone], CC: Keena Thomas DO Jet Pilot: Signed 29-Mar-2016 Discharge Instruction Result: Comments: See Note; NOTES: [facility] Medical Records Department [address] [place] [address] Discharge Instruction 03/27/16 1521 MR#: [id number] Acct: [id number] Name: CHELSEA HENNING Rep #: [id number] : 1960 55 From: Marques Hutchison MD [...] or any unexpected problems, contact your doctor. [facility] ([phone]) or report to the closest Emergency Room. Call 911 if necessary. 03/29/16 0715 <Electronically signed by Marques Hutchison MD> Date Marques Hutchison MD Cosigner Signature (If Indicated): Date CC: Keena Thomas DO 29-Mar-2016 Emergency Department Summary Result: Comments: See Note; NOTES: [facility] Medical Records Department [address] [place] [address] Emergency Department Summary MR#: [id number] Acct: [id number] Name: CHELSEA HENNING Rep #: [id number] : 1960 55 From: Marques Hutchison MD [...] fall. DISPOSITION: Discharge. Marques Hutchison MD T: [facility] JOB: [id number] 03/29/16 0715 <Electronically signed by Marques Hutchison MD> Date Marques Hutchison MD Cosigner Signature (If Indicated): Date CC: Keena Thomas DO Date Dictated: 03/09 1524 Date Transcribed: 03/27/16 152 Jet Pilot: Signed 27-Mar-2016 Sinus/Facial Bone Result: Comments: See Note; NOTES: [facility] Imaging Services [address] [place] [address] Verdana 4d Sinus/Facial Bone MR#: [id number] Acct: [id number] Name: CHELSEA HENNING Rep #: [id number] : 1960 F 55 From: Manolo Rodriguez MD PCP: Keena Thomas DO Status: REG ER Study: Sinus/Facial Bone Date of Exam: 03/27/16 Exam# [id number] Ordering Dr: Marques Hutchison MD STUDY: CT [...] at 15:14 EDT Tel , Service support [phone], CC: Keena Thomas DO; Marques Hutchison MD Jet Pilot: Signed 27-Mar-2016 Wrist min 3 Views Result: Comments: See Note; NOTES: [facility] Imaging Services [address] [place] [address] Verdana 4d Wrist min 3 Views MR#: [id number] Acct: [id number] Name: CHELSEA HENNING Rep #: [id number] : 1960 F 55 From: Manolo Rodriguez MD PCP: Keena Thomas DO Status: REG ER Study: Wrist min 3 Views Date of Exam: 03/27/16 Exam# [id number] Ordering Dr: Marques Hutchison MD STUDY: X-R [...] at 15:15 EDT Tel , Service support [phone], Fax CC: Keena Thomas DO; Marques Hutchison MD Jet Pilot: Signed 09-Dec-2015 Chest PA and Lateral Result: Comments: See Note; NOTES: [facility] Imaging Services [address] [place] [address] Verda 4d Chest PA and Lateral MR#: [id number] Acct: [id number] Name: CHELSEA HENNING Rep #: [id number] : 1960 F 55 From: Halima Hook MD PCP: Karin Khanna DO Status: REG CLI Study: Chest PA and Lateral Date of Exam: 12/09/15 Exam# [id number] Ordering Dr: Karin Khanna O STUDY: X-RAY CHEST REASON FOR EXAM: Female, [...] at 11:50 EDT Tel , Service support [phone], RAD/Chest PA and Lateral IMPRESSION: There is no acute chest disease. Electronically Signed: Halima Hook MD at 11:50 EDT Tel , Service support [phone], CC: Karin Khanna DO Jet Pilot: Signed 05-Mar-2015 Upper Ext Joint Only W/WO Cont Result: Comments: See Note; NOTES: [facility] Imaging Services [address] [place] [address] MRI Report MR#: [id number] Acct: [id number] Name: JUVENCIOILAN THOMPSONMikey Cutler Rep #: [id number] D OB: 1960 F 54 From: Manolo James MD PCP: Karin Khanna DO Status: REG CLI Study: Upper Ext Joint Only W/WO Cont Date of Exam: 03/05/15 Exam# [id number] Ordering Dr: Lashonda Butler STUDY: MRI LE [...] at 11:09 EDT Tel , Service support [phone], CC: LASHONDA BUTLER; Venus Khanna DO Jet Pilot: Signed 05-Feb-2015 OT Discharge Summary Result: Comments: See Note; NOTES: [facility] [place] [address]. [address] [place] [address] Fax REHABILITATION SERV ICES DISCHARGE SUMMARY MR#: [id number] Acct: [id number] Name: CHELSEA HENNING Rep #: [id number] : 1960 54 From: Citlaly Moctezuma Referring : LASHONDA BUTLER Status: DIS RCR Eval Date: D ischarge Date: 02/04/15 DATE OF SERVICE: Chelsea's initial occupational therapy evaluation occurred on July 11, 2014. She was referred by Dr. Lashodna Butler with a diagnosis of left elbow fracture. She underwent an ORIF on June 28, 2014. 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 Chelsea has currently plateaued Her strength has greatly improved and she is using the static progressive brace consistently at home. The plan is to have her keep using the brace until so she no longer feels a stretch. Therefore, she will be discharged from occupational therapy. Citlaly Moctezuma OTR/L T: SHAE JOB: [id number] <Electronically signed by Citlaly Merino cki > 02/05/15 1304 CC: Signed 29-Nov-2014 Lumbar Spine 2 or 3 Views Result: Comments: See Note; NOTES: [facility] Imaging Services [address] [place] [address] Radiology Report MR#: [id number] Acct: [id number] Name: CHELSEA HENNING Rep #: [id number] : 1960 F 54 From: Renato Maria MD PCP: Karin Khanna DO Status: REG CLI Study: Lumbar Spine 2 or 3 Views Date of Exam: 11/29/14 Exam# [id number] Ordering Dr: JASVIR CARDOZA STUDY: X-RAY - [...] MD at 10:23 EDT , Service support [phone], CC: Karin Khanna DO; JASVIR CARDOZA Jet Pilot: Signed 04-Sep-2014 Dexa Bone Density Study (HP) Result: Comments: See Note; NOTES: [facility] Imaging Services [address] [place] [address] Bone Density Report MR#: [id number] Acct: [id number] Name: CHELSEA HENNING Rep #: [id number] : 1960 F 53 From: Salvador Pike MD PCP: Karin Khanna DO Status: REG CLI Study: Dexa Bone Density Study (HP) Date of Exam: 09/04/14 Exam# [id number] Ordering Dr: Karin Khanna DO STUDY: DUAL [...] http://www.iscd.org 3. [employer] Foundation http://www.nof.org Cameron ically Signed: Salvador Pike MD at 12:33 EST Tel [phone], Service support [phone], CC: Karin Khanna DO Jet Pilot: Signed 04-Sep-2014 Dexa Bone Density Study (HP) Result: Comments: See Note; NOTES: [facility] Imaging Services [address] [place] [address] Bone Density Report MR#: [id number] Acct: [id number] Name: CHELSEA HENNING Rep #: [id number] : 1960 F 53 From: Salvador Pike MD PCP: Karin Khanna DO Status: REG CLI Study: Dexa Bone Density Study (HP) Date of Exam: 09/04/14 Exam# [id number] Ordering Dr: Karin Khanna DO ADDENDUM by Salvador Pike MD on 09/10/14 at 1026 ADDENDUM This is an addendum report Com parison is made with prior outside examination dated February 04, 2012. Since prior examination, there has been a decrease in the bone density of the proximal left femur of 7.9%. Electronically Signed: Salvador Pike MD at 10:26 EST Tel [phone], Service support [phone], 09/10/14 1026 Date cc: Karin Khanna DO [...] Salvador Pike MD at 12:33 EST Tel [phone], Service support [phone], CC: Karin Khanna DO Jet Pilot: Signed 16-Jul-2014 Initial Evaluation - OT Result: Comments: See Note; NOTES: [facility] [place], [place] [address] Fax REHABILITATION SERVI [facility] INITIAL EVALUATION MR#: [id number] Acct: [id number] Name: CHELSEA HENNING Rep #: [id number] : 1960 53 From: Citlaly Moctezuma Referring Dr.: LASHONDA BUTLER Status: REG R Insurance: A NTHEM Eval Date: DATE OF [...] visits. 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 At the time [...] within functional limits for supination but the trish ent could only achieve neutral position in pronation with her left forearm. The patient's active range of motion was as follows: Wrist flexion was 75 degrees in her right wrist and extension was als o was 75 degrees. Left wrist flexion was 25 degrees and extension was 60 degrees. All finger and thumb movements were within functional limits. 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 2. 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 [...] motion. Citlaly Moctezuma, OTR/L T: NTS JOB: [id number] <Electronically signed by Citlaly Moctezuma > 1 09/16/13 0852 CC: Signed For Medicare only, by signing this I certify the plan of care. Physicians Signature Date 01-Jan-2014 Abdomen/Pelvis without Cont Result: Comments: See Note; NOTES: [facility] Imaging Services [facility] [place] [address] CAT Scan Report MR#: [id number] Acct: [id number] Name: CHELSEA HENNING Rep #: [id number] : 1960 F 53 From: Sid Conklin MD PCP: Karin Khanna DO Status: REG CLI Study: Abdomen/Pelvis without Cont Date of Exam: 01/01/14 Exam# [id number] Ordering Dr: Roseanne Liu MD STUDY : [...] at 16:49 EDT Tel , Service support [phone], CC: Roseanne Liu MD; Karin Khanna DO Jet Pilot: Signed 27-Dec-2013 Kidney and Bladder Result: Comments: See Note; NOTES: [facility] Imaging Services [address] [place] [address] Ultrasound Report MR#: [id number] Acct: [id number] Name: CHELSEA HENNING Rep #: [id number] : 1960 F 53 From: Rajeev Farias DO PCP: Karin Khanna DO Status: REG CLI Study: Kidney and Bladder Date of Exam: 12/27/13 Exam# [id number] Ordering Dr: Karin Khanna DO STUDY: RENAL [...] 4. Normal urinary bladder. Electronically Signed: Rajeev Brown DO chito at 19:47 EDT Tel [phone], Service support [phone], CC: Karin Khanna DO Jet Pilot: Signed 27-Dec-2013 L/S Spine Min 4 Views Result: Comments: See Note; NOTES: [facility] Imaging Services [address] [place] [address] Radiology Report MR#: [id number] Acct: [id number] Name: CHELSEA HENNING Rep #: [id number] : 1960 F 53 From: Rajeev Barryon PCP: Karin Khanna DO Status: REG CLI Study: L/S Spine Min 4 Views Date of Exam: 12/27/13 Exam# [id number] Ordering Dr: Karin Khanna DO STUDY: X-RAY [...] Farias DO at 20 :52 EDT Tel [phone], Service support [phone], CC: Karin Khanna DO Jet Pilot: Signed 23-Nov-2013 Esophagus Only Result: Comments: See Note; NOTES: [facility] Imaging Services [address] [place] [address] Radiology Report MR#: [id number] Acct: [id number] Name: CHELSEA HENNING Rep #: [id number] : 1960 F 53 From: Salvador Pike MD PCP: Karin Khanna DO Status: REG CLI Study: Esophagus Only Date of Exam: 11/23/13 Exam# [id number] Ordering Dr: Karin Khanna DO STUDY: X-RAY [...] the gastroesophag eal CC: Karin Khanna DO Jet Pilot: Signed 23-Nov-2013 Thyroid Result: Comments: See Note; NOTES: [facility] Imaging Services [address] [place] [address] Ultrasound Report MR#: [id number] Acct: [id number] Name: CHELSEA HENNING Rep #: [id number] : 1960 F 53 From: Salvador Pike MD PCP: Karin Khanna DO Status: REG CLI Study: Thyroid Date of Exam: 11/23/13 Exam# [id number] Ordering Dr: Karin Khanna DO STUDY: THYROID ULTRASOU ND REASON FOR EXAM: Female, 53 years old. Thyroid nodules. TECHNIQUE: Ultrasound evaluation of the thyroid was performed with real-time and static gonzales-scale imaging. COMPARISON: Comparison is ma de with prior study dated January 19, 2013. [...] Salvador Pike MD at 12:56 EDT Tel [phone], Service support [phone], CC: Karin Khanna DO Jet Pilot: Signed Family History Unknown Family Member Name [...] smoker Vital Signs Date Test Result Details :46 Temperature 97.9 f Comments: Method: Temporal [...] 1.63 m2 Results Date Description Value Details 56-Dgn-964771:04 RHEUMATOID FACTOR-QUANT Comments: PATIENT NOT FASTINGPERFORMED BY: [address] [id number] BY: [address] [id number] ([address]) RA Latex Turbid. 19.3 {IU/mL} (Abnormal) Range: 0.0-13.9 59-Qmk-922018:04 CCP ANTIBODY (22142) Comments: PATIENT NOT FASTINGPERFORMED BY: [address] [id number] BY: [address] [id number] CCP Antibodies IgG/IgA >250 {units} (Abnormal) Range: 0-19 Comments: Negative <20 Weak positive 20 - 39 Moderate positive 40 - 59 Strong positive >59 22-Fkb-988375:04 C-REACTIVE PROTEIN Comments: PATIENT NOT FASTINGPERFORMED BY: [address] [id number] BY: [address] [id number] ([address]) C-Reactive Protein, Quant 4.1 mg/L (Normal) Range: 0.0-4.9 00-Svk-750876:04 SED RATE ERYTHROCYTE Comments: PATIENT NOT FASTINGPERFORMED BY: [address] [id number] BY: [address] [id number] ([address]) Sedimentation Rate-Westergren 2 mm/h (Normal) Range: 0-40 46-Yfa-014096:14 Alanine Aminotransferas (SGPT) Comments: [facility] Dpmgbowtpo17[address] [place], [place], [id number] ALT 26 U/L (Normal) Range: 13-56 31-Ija-092777:14 AST(SGOT) Comments: [facility] Ehecrzqwps4[address], [address] AST 20 U/L (Normal) Range: 15-37 14-Wor-232159:14 Basic Metabolic Profile (BMP) Comments: [facility] Tedoceihiu0823[address] [place], [address] GAP 7 (Normal) Range: 5-15 CO2 31.0 [...] A.D.A. criteria.Please note revised GLUCOSE reference range /02/2018. 94-Wkm-501246:14 Hemoglobin A1c Comments: [facility] Whplwqmmud9074 [address] [place], [place], [address] HGB A1C 6.6 % (Abnormal) Range: 4.2-6.3 13-Fhg-161422:14 Lipid Profile Comments: [facility] Roccnqywjy1568 [place], [address] VLDL 7 mg/dL (Normal) Range: 5-40 LDL [...] 200-240 mg/dL Borderline >240 mg/dL High Risk 24-Udt-405446:14 T4 Free Direct Comments: [facility] Tjqvmmukjy89[address] [place], [address] T4 FREE DIRECT 1.20 ng/dL (Normal) Range: 0.76-1.46 86-Xtx-412936:14 Thyroid Stim Hormone (TSH) Comments: [facility] Adicseujcx4[address] [place], [address] TSH 1.94 {uIU/mL} (Normal) Range: 0.358-3.74 46-Ndr-714600:14 Vitamin B12 1757 pg/mL (Abnormal) Comments: [facility] Wdciwqeplc37[address] [place], [address] Range: 211-911 19-Fyy-803564:14 Vitamin D,25 Hydroxy Comments: [facility] Szcekxkbmt2834 [address] [place], [address] Vitamin D 25-OH 63.2 ng/mL (Normal) Range: 29.95-100.01 Comments: Vitamin D 25(OH) Status Range Deficiency <20 ng/mL (50nmol/L) Insuffciency 20 - 30 ng/mL (50 - 75 nmol/L) Sufficiency 30 - 100 ng/mL (75 - 250 nmol/L) Toxicity >100 ng/mL (>250 nmol/L) :43 Alanine Aminotransferas (SGPT) Comments: [facility] Xyxuinione39[address] [place], [address] ALT 33 U/L (Normal) Range: 13-56 :43 AST(SGOT) Comments: [facility] Imxaxtzakp3463 [address] [place], [address] AST 22 U/L (Normal) Range: 15-37 :43 Basic Metabolic Profile (BMP) Comments: [facility] Adrncwuolg6320[address] [place], [address] GAP 7 (Normal) Range: 5-15 CO2 32.0 [...] suggests HYPOGLYCEMIA.Please note revised GLUCOSE reference range lzcnophjy76/02/2018. :43 Hemoglobin A1c Comments: [facility] Adrdlnpsgs8365 [address] [place], [address] HGB A1C 6.8 % (Abnormal) Range: 4.2-6.3 :43 Lipid Profile Comments: [facility] Nbrjsfyezn2373 [address] [place], [address] VLDL 7 mg/dL (Normal) Range: 5-40 LDL [...] High Risk :43 T4 Free Direct Comments: [facility] Mebggxzwey2702 [address] [place], [address] T4 FREE DIRECT 1.25 ng/dL (Normal) Range: 0.76-1.46 :43 Thyroid Stim Hormone (TSH) Comments: [facility] Ewvpndgfkh3871 [address] [place], [address] TSH 2.08 {uIU/mL} (Normal) Range: 0.358-3.74 :43 Vitamin B12 1996 pg/mL (Abnormal) Comments: [facility] Hhjyucwjdw6452 [address] [place], [address] Range: 211-911 :43 Vitamin D,25 Hydroxy Comments: [facility] [address] [place], [address] Vitamin D 25-OH 66.0 ng/mL (Normal) Range: 29.95-100.01 Comments: Vitamin D 25(OH) Status Range Deficiency <20 ng/mL (50nmol/L) Insuffciency 20 - 30 ng/mL (50 - 75 nmol/L) Sufficiency 30 - 100 ng/mL (75 - 250 nmol/L) Toxicity >100 ng/mL (>250 nmol/L) 02-Ocm-035171:42 TSH (56838) Comments: PATIENT NOT FASTINGPERFORMED BY: [employer] GmbHNorth [place] [id number] TSH 1.190 {uIU/mL} (Normal) Range: 0.450-4.500 58-Nre-408308:42 T3, FREE (TRIDOTHYRONINE) (62826) Comments: PATIENT NOT FASTINGPERFORMED BY: [employer] GmbHDublin [place] [id number] Triiodothyronine (T3), Free 2.1 pg/mL (Normal) Range: 2.0-4.4 80-Cqi-402842:42 T4, FREE (THYROXINE) (97284) Comments: PATIENT NOT FASTINGPERFORMED BY: DARREN [facility] Wqgxmk1681 [facility] [id number] T4,Free(Direct) 1.68 ng/dL (Normal) Range: 0.82-1.77 :38 Alanine Aminotransferas (SGPT) Comments: [facility] [address] [place], [place], [address](847) ALT 26 U/L (Normal) Range: 13-56 :38 AST(SGOT) Comments: [facility] T[address]ug[address] [place], [place], [address](994) AST 23 U/L (Normal) Range: 15-37 :38 Basic Metabolic Profile (BMP) Comments: [facility] S[address]xril[address] [place], [place], [address] GAP 7 (Normal) Range: 5-15 CO2 29.0 [...] A.D.A. criteria.Please note revised GLUCOSE reference range iudlmqxce91/02/2018. :38 Hemoglobin A1c Comments: [facility] [address]wpxmx[address] [place], [address] HGB A1C 7.1 % (Abnormal) Range: 4.2-6.3 :38 Lipid Profile Comments: [facility] Ngsuqfajcl[address] [place], [address] VLDL 5 mg/dL (Normal) Range: 5-40 LDL [...] High Risk :38 T4 Free Direct Comments: [facility] Becwe[address]aypx[address] [place], [address] T4 FREE DIRECT 1.58 ng/dL (Abnormal) Range: 0.76-1.46 04-Fmk-22242:38 Thyroid Stim Hormone (TSH) Comments: [facility] [address] [place], [address] TSH 0.73 {uIU/mL} (Normal) Range: 0.358-3.74 28-Sak-406136:27 Alanine Aminotransferas (SGPT) Comments: [facility] Yqowko[address] [place], [address] ALT 27 U/L (Normal) Range: 12-78 40-Jsb-684419:27 AST(SGOT) Comments: [facility] Ukawtteqeq5977 [place], [address] AST 19 U/L (Normal) Range: 15-37 54-Aoy-934887:27 Basic Metabolic Profile (BMP) Comments: [facility] Siebdztvwf9948 [address] [place], [address] GAP 7 (Normal) Range: 5-15 CO2 29.0 [...] 7-18 GLU 79 mg/dL (Normal) Range: 70-110 08-Ghz-724462:27 Hemoglobin A1c Comments: [facility] Lihornrqbp0887 [address] [place], [address] HGB A1C 6.8 % (Abnormal) Range: 4.2-6.3 11-Yii-884207:27 Lipid Profile Comments: [facility] Hyqlniepon7700 [address] [place], [address] VLDL 6 mg/dL (Normal) Range: 5-40 LDL [...] 200-240 mg/dL Borderline >240 mg/dL High Risk 77-Lzd-651380:27 Microalb:Creat Ratio,Random UR Comments: [facility] Qggngbnvst67[address] [place], [id number] MALB:CREAT 8.2 {mg/g_CRE} (Normal) MICROALBUMIN,UR 11.5 mg/L (Normal) UR CREAT 140.00 mg/dL (Normal) 62-Wro-735049:27 T4 Free Direct Comments: [facility] Qhrmsizgzu2127 [address] [place], [address] T4 FREE DIRECT 1.20 ng/dL (Normal) Range: 0.76-1.46 94-Nbo-436962:27 Thyroid Stim Hormone (TSH) Comments: [facility] Zhwtaauaju5[address] [place], [address] TSH 4.21 {uIU/mL} (Abnormal) Range: 0.358-3.74 74-Wbh-390341:27 Vitamin B12 763 pg/mL (Normal) Comments: [address] [place] [place], [address] Range: 211-911 32-Iww-036933:27 Vitamin D,25 Hydroxy Comments: [facility] Fnnhogwdsh8005 [address] [place], [address] Vitamin D 25-OH 59.2 ng/mL (Normal) Comments: Vitamin D 25(OH) Status Range Deficiency <20 ng/mL (50nmol/L) Insuffciency 20 - 30 ng/mL (50 - 75 nmol/L) Sufficiency 30 - 100 ng/mL (75 - 250 nmol/L) Toxicity >100 ng/mL (>250 nmol/L) 24-Tmc-908546:19 CRP Comments: [address] [place] [place], [address] C-REACTIVE PROT < 2.90 mg/L (Normal) Range: 0.0-3.0 Comments: C-Reactive Protein (CRP) provides useful information for thediagnosis, therapy and monitoring of inflammatory processesand associated diseases. For the evaluation of Relative Riskfor Cardiovascular Dise ase, a High Sensitivity CRP (HSCRP)should be ordered. :14 CBC W/Diff, Automated Comments: [facility] Qkjaubrdbn32[address] [place], [place], [address] Absolute Lymph 1.38 {X10_3/ul} (Normal) Range: 0.83-4.51 [...] 4.2-5.4 WBC 4.0 K/mm3 (Abnormal) Range: 4.4-11.0 :14 Comprehensive Metabolic Profil Comments: [facility] Ftfpnbiviq2270 [address] [place], [place], [address] GAP 8 (Normal) Range: 5-15 CO2 30.0 [...] 200 mg/dLsuggests DIABETES MELLITUS per A.D.A. criteria. 81-Uve-686616:14 Erythrocyte Sed Rate Comments: [facility] Hyslvhlvyh7536 [address] [place], [place], [address] SED RATE 2 mm/h (Normal) Range: 0-30 2-Bvz-893199:39 Alanine Aminotransferas (SGPT) Comments: [facility] Xwpcerejbq7537 [address] [place], [address] ALT 24 U/L (Normal) Range: 12-78 1-Ieg-209665:39 AST(SGOT) Comments: [facility] Bwuqjhscvo1740 [address] [place], [address] AST 23 U/L (Normal) Range: 15-37 1-Hxu-169905:39 Basic Metabolic Profile (BMP) Comments: [address] [place], [address] GAP 6 (Normal) Range: 5-15 CO2 31.0 [...] 126 mg/dLsuggests DIABETES MELLITUS per A.D.A. criteria. 5-Fwn-259881:39 Hemoglobin A1c Comments: [facility] Pvhoztbqkf27[address] [place], [address] HGB A1C 6.5 % (Abnormal) Range: 4.2-6.3 2-Hfb-840794:39 Lipid Profile Comments: [address] [place], [address] VLDL 6 mg/dL (Normal) Range: 5-40 LDL [...] 200-240 mg/dL Borderline >240 mg/dL High Risk 3-Guq-291259:39 T4 Free Direct Comments: [facility] Eaecevtvai6765 [place], [place], [address] T4 FREE DIRECT 1.36 ng/dL (Normal) Range: 0.76-1.46 3-Ysl-165850:39 Thyroid Stim Hormone (TSH) Comments: [address] [place], [place], [address] TSH 3.60 {uIU/mL} (Normal) Range: 0.358-3.74 7-Tmm-847085:39 Vitamin B12 497 pg/mL (Normal) Comments: [address] [place], [address] Range: 211-911 0-Qan-395461:39 Vitamin D,25 Hydroxy Comments: [address] [place], [place], [address] Vitamin D 25-OH 58.6 ng/mL (Normal) Comments: Vitamin D 25(OH) Status Range Deficiency <20 ng/mL (50nmol/L) Insuffciency 20 - 30 ng/mL (50 - 75 nmol/L) Sufficiency 30 - 100 ng/mL (75 - 250 nmol/L) Toxicity >100 ng/mL (>250 nmol/L) 08-Apr-20178:42 Microscopic Examination Comments: PATIENT NOT FASTINGPERFORMED BY: [facility] Lvazex2124 Bales RoadDuSelect Specialty Hospital [facility] [id number] Bacteria None seen (Normal) Mucus Threads Present (Normal) Crystal Type Calcium Oxalate (Normal) Crystals Present (Abnormal) Epithelial Cells (non renal) 0-10 {/hpf} (Normal) Range: 0 - 10 RBC 0-2 {/hpf} (Normal) Range: 0 - 2 WBC 0-5 {/hpf} (Normal) Range: 0 - 5 :42 T3, FREE (TRIDOTHYRONINE) (95008) Comments: PATIENT NOT FASTINGPERFORMED BY: [employer] Yylket1632 PrixingSelect Specialty Hospital [facility] [id number] Triiodothyronine,Free,Serum 2.4 pg/mL (Normal) Range: 2.0-4.4 :42 T4, FREE (THYROXINE) (92761) Comments: PATIENT NOT FASTINGPERFORMED BY: [employer] Duhgvb2554 PrixingSelect Specialty Hospital [facility] [id number] T4,Free(Direct) 1.70 ng/dL (Normal) Range: 0.82-1.77 :42 URINE VEE CULTURE-IDENTIFICATN Comments: PATIENT NOT FASTINGPERFORMED BY: [employer] Lemoxq4145 PrixingSelect Specialty Hospital [facility] [id number] (50253) Result 1 PSMS (Abnormal) Comments: Pseudomonas hpjntkcemf617 Colonies/mL . S = Susceptible; I = Intermediate; R = Resistant P = Positive; N = Negative MICS are expressed in micrograms per mL Antibiotic RSLT#1 RSLT#2 RSLT#3 RSLT#4Amikacin SCefepime SCeftazidime SCiprofloxacin SGentamicin SImipenem SLevofloxacin SMeropenem SPiperacillin STica rcillin STobramycin S Urine Final report (Abnormal) Culture,Comprehensive :42 LDH (LD) (LACTATE DEHYDROGENASE) Comments: PATIENT NOT FASTINGPERFORMED BY: [employer] Rkjvta2440 [employer] [id number] (68032) LDH 239 [iU]/L (Abnormal) Range: 119-226 :42 SED RATE ERYTHROCYTE (70128) Comments: PATIENT NOT FASTINGPERFORMED BY: [address] [facility] Clwbyx8481 Bales NameMediaVidant Pungo Hospital [id number] Sedimentation Rate-Westergren 2 mm/h (Normal) Range: 0-40 :42 C-REACTIVE PROTEIN (48241) Comments: PATIENT NOT FASTINGPERFORMED BY: [facility]6370 [facility] [id number] C-Reactive Protein, Quant 2.1 mg/L (Normal) Range: 0.0-4.9 :42 URINALYSIS, W/ MICRO (95269) Comments: PATIENT NOT FASTINGPERFORMED BY: [facility]6370 [facility] [id number] Microscopic Examination See below: (Normal) Comments: Microscopic was indicated and was performed. Nitrite, Urine Negative (Normal) Urobilinogen,Semi-Qn 0.2 mg/dL (Normal) Range: 0.2-1.0 Bilirubin Negative (Normal) Occult Blood Negative (Normal) Ketones Negative (Normal) Glucose Negative (Normal) Protein Negative (Normal) WBC Esterase 2+ (Abnormal) Appearance Clear (Normal) Urine-Color Yellow (Normal) pH 6.5 (Normal) Range: 5.0-7.5 Specific [place] 1.022 (Normal) Range: 1.005-1.030 :42 TSH (73010) Comments: PATIENT NOT FASTINGPERFORMED BY: [facility]6370 [facility] [id number] TSH 3.290 {uIU/mL} (Normal) Range: 0.450-4.500 :42 CBC W/AUTO DIFF WBC Comments: PATIENT NOT FASTINGPERFORMED BY: [facility]6370 [facility] [id number] Information: SRC:UC (96529) Immature Grans (Abs) 0.0 {x10E3/uL} (Normal) Range: [...] 3.77-5.28 WBC 4.7 {x10E3/uL} (Normal) Range: 3.4-10.8 76-Isc-794893:50 Alanine Aminotransferas (SGPT) Comments: [address] [place], [place], [address] ALT 25 U/L (Normal) Range: 12-78 53-Aax-691496:50 AST(SGOT) Comments: [address] [place], [place], [address] AST 21 U/L (Normal) Range: 15-37 55-Pyj-813771:50 Basic Metabolic Profile (BMP) Comments: [address] [place], [place], [address] GAP 8 (Normal) Range: 5-15 CO2 30.0 [...] 7-18 GLU 87 mg/dL (Normal) Range: 70-110 72-Ljr-939221:50 Hemoglobin A1c Comments: [facility] Wscyvenaev09[address] [place], [place], [address] HGB A1C 6.5 % (Abnormal) Range: 4.2-6.3 28-Rlg-168453:50 Lipid Profile Comments: [facility] Cycwyrcogx0517 [address] [place], [place], [address] VLDL 7 mg/dL (Normal) Range: 5-40 LDL [...] 200-240 mg/dL Borderline >240 mg/dL High Risk 08-Buw-212028:50 T4 Free Direct Comments: [facility] Gr[address]xliiln38[address] [place], [place], [address] T4 FREE DIRECT 1.39 ng/dL (Normal) Range: 0.76-1.46 48-Ghe-052754:50 Vitamin B12 513 pg/mL (Normal) Comments: [facility] Iimkbjykag2510 [address] [place], [address] Range: 211-911 70-Cmn-565232:50 Vitamin D,25 Hydroxy Comments: [facility] Jjfsoxutju6596 [address] [place], [address] Vitamin D 25-OH 65.2 ng/mL (Normal) Comments: Vitamin D 25(OH) Status Range Deficiency <20 ng/mL (50nmol/L) Insuffciency 20 - 30 ng/mL (50 - 75 nmol/L) Sufficiency 30 - 100 ng/mL (75 - 250 nmol/L) Toxicity >100 ng/mL (>250 nmol/L) 41-Rks-804830:51 Rapid Flu (71070 x 2) Comments: negative Influenza A Ag neg (Normal) 35-Ifm-23651:59 THROAT CULTURE (73203) Comments: PATIENT NOT FASTINGPERFORMED BY: [facility] CoScheduleSelect [facility] [id number] Information: SRC: Result 1 RRF (Normal) Comments: Routine respiratory maryam Upper Respiratory Culture Final report (Normal) 23-Rff-222451:15 PROLACTIN (96708) Comments: PATIENT NOT FASTINGPERFORMED BY: [facility] Fshotu3769 [facility] [id number] Prolactin 10.1 ng/mL (Normal) Range: 4.8-23.3 08-Oct-20168:40 Alanine Aminotransferas (SGPT) Comments: [facility] [id number] [place], [id number] ALT 23 U/L (Normal) Range: 12-78 08-Oct-20168:40 AST(SGOT) Comments: [facility] [id number] [place], [id number] AST 22 U/L (Normal) Range: 15-37 :40 Basic Metabolic Profile (BMP) Comments: [facility] [id number] [place], [address] GAP 9 (Normal) Range: 5-15 CO2 29.0 [...] per A.D.A. criteria. :40 Hemoglobin A1c Comments: [facility] [id number] [facility] [facility] [place], [place], [address] HGB A1C 6.6 % (Abnormal) Range: 4.2-6.3 :40 Lipid Profile Comments: [facility] Fmxtllcmiz5979 [facility]. [place], [place], [address] VLDL 7 mg/dL (Normal) Range: 5-40 LDL [...] High Risk :40 Microalb:Creat Ratio,Random UR Comments: [facility] Wrlnozyscy6612 [address]. [place], [address] MALB:CREAT 8.4 {mg/g_CRE} (Normal) MICROALBUMIN,UR 11.5 mg/L (Normal) UR CREAT 137.00 mg/dL (Normal) :40 T4 Free Direct Comments: [facility] Ljyapzqami2459 [address] [place], [address] T4 FREE DIRECT 1.49 ng/dL (Abnormal) Range: 0.76-1.46 :40 Thyroid Stim Hormone (TSH) Comments: [facility] Gkhmisyqht2846 [address] [place], [address] TSH 1.79 {uIU/mL} (Normal) Range: 0.358-3.74 :40 Vitamin B12 624 pg/mL (Normal) Comments: [facility] Fwcotawfyi9844 [address] [place], [address] Range: 211-911 :40 Vitamin D,25 Hydroxy Comments: [facility] Exnrwrojsh7567 [address] [place], [address] Vitamin D 25-OH 55.6 ng/mL (Normal) Comments: Vitamin D 25(OH) Status Range Deficiency <20 ng/mL (50nmol/L) Insuffciency 20 - 30 ng/mL (50 - 75 nmol/L) Sufficiency 30 - 100 ng/mL (75 - 250 nmol/L) Toxicity >100 ng/mL (>250 nmol/L) :40 Alanine Aminotransferas (SGPT) Comments: [facility] Tusadkthlz3169 [address] [place], [address] ALT 24 U/L (Normal) Range: 12-78 :40 AST(SGOT) Comments: [facility] Lyjbsfostq0668 [address] [place], [address] AST 21 U/L (Normal) Range: 15-37 :40 Basic Metabolic Profile (BMP) Comments: [facility] Hwifwzqukd6297 [address]. [place], [place], [id number] GAP 9 (Normal) Range: 5-15 CO2 29.0 [...] per A.D.A. criteria. :40 Hemoglobin A1c Comments: [facility] Puhwthjnok1993 [address] [place], [place], [id number] HGB A1C 6.5 % (Abnormal) Range: 4.2-6.3 :40 Lipid Profile Comments: [facility] Fgdjjculjd3575 [address]. [place], [place], [id number] VLDL 5 mg/dL (Normal) Range: 5-40 LDL [...] mg/dL High Risk :40 Microalbumin,Random Urine Comments: [facility] Rrcglnbutt2819 [address]. [place], [id number] MICROALBUMIN,UR 13.4 mg/L (Normal) :40 T4 Free Direct Comments: [facility] Yoaobjyepm5675 [address] [place], [place], [address] T4 FREE DIRECT 1.55 ng/dL (Abnormal) Range: 0.76-1.46 :40 Thyroid Stim Hormone (TSH) Comments: [facility] Ylhztivodq1127 [place], [address] TSH 1.40 {uIU/mL} (Normal) Range: 0.358-3.74 :40 Vitamin B12 720 pg/mL (Normal) Comments: [facility] Qzrhxvmokq9849 [place], [address] Range: 211-911 :40 Vitamin D,25 Hydroxy Comments: [facility] Qrtxvpwkmj8655 [address] [place], [place], [id number] Vitamin D 25-OH 55.5 ng/mL (Normal) Comments: Vitamin D 25(OH) Status Range Deficiency <20 ng/mL (50nmol/L) Insuffciency 20 - 30 ng/mL (50 - 75 nmol/L) Sufficiency 30 - 100 ng/mL (75 - 250 nmol/L) Toxicity >100 ng/mL (>250 nmol/L) :08 Comprehensive Comments: DR KHANNA ORDERED LIPID/CMP/TSHH CHASIDY ORDERED A1C/AST/ALT/LIPID/BMP/TSH/T4F/B12/[facility] Vbuqweljac7322 [place], [address] Metabolic Profil GAP 5 (Normal) [...] result less than 50 mg/dL suggests HYPOGLYCEMIA. 33-Jky-79940:08 Hemoglobin A1c Comments: DR KHANNA ORDERED LIPID/CMP/TOVA GUERRA ORDERED A1C/AST/ALT/LIPID/BMP/TSH/T4F/B12/[facility] Fnnnppzyps7735 [address] [place], [place], [id number] HGB A1C 6.5 % (Abnormal) Range: 4.2-6.3 :08 Lipid Profile Comments: DR KHANNA ORDERED LIPID/CMP/TOVA GUERRA ORDERED A1C/AST/ALT/LIPID/BMP/TSH/T4F/B12/[facility] Vikpthwgtg7971 [place], [address] VLDL 8 mg/dL (Normal) Range: [...] T4 Free Direct Comments: DR KHANNA ORDERED LIPID/CMP/[facility]SHBR[facility] M[facility]PICHASIDY ORDERED A1C/AST/ALT/LIPID/BMP/TSH/T4F/B12/[facility] Yefgcdxekh2042 [place], [address] T4 FREE DIRECT 1.67 ng/dL (Abnormal) Range: 0.76-1.46 :08 Thyroid Stim Comments: DR KHANNA ORDERED LIPID/CMP/[facility] CHASIDY ORDERED A1C/AST/ALT/LIPID/BMP/TSH/T4F/B12/[facility] Zwafyzodiy8836 [place], [address] Hormone (TSH) TSH 0.43 {uIU/mL} (Normal) Range: 0.358-3.74 :08 Vitamin B12 622 pg/mL (Normal) Comments: DR KHANNA ORDERED LIPID/CMP/[facility] CHASIDY ORDERED A1C/AST/ALT/LIPID/BMP/TSH/T4F/B12/[facility] Reugpglvgl2652 [place], [address] Range: 211-911 :08 Vitamin D,25 Comments: DR KHANNA ORDERED LIPID/CMP/TSHH CHASIDY ORDERED A1C/AST/ALT/LIPID/BMP/TSH/T4F/B12/[facility] Dfzixcklqy5347 [address] [place], [place], [id number] Hydroxy Vitamin D 25-OH 52.9 ng/mL (Normal) Comments: Vitamin D 25(OH) Status Range Deficiency <20 ng/mL (50nmol/L) Insuffciency 20 - 30 ng/mL (50 - 75 nmol/L) Sufficiency 30 - 100 ng/mL (75 - 250 nmol/L) Toxicity >100 ng/mL (>250 nmol/L) :20 CBC W/Diff, Automated Comments: [facility] Figpxffxsh6791 [address] [place], [place], [id number] Absolute Lymph 1.13 {X10_3/ul} (Normal) Range: 0.83-4.51 [...] LIPID MIACRE VITD B12DR.OLIVER CRP CBCD CMP [facility] Wutjyzinzp5124 [place], [address] GAP 6 (Normal) Range: 5-15 CO2 30.0 [...] CRP CBCD [facility] Ryvsjtauuv6715 [place], [address] C-REACTIVE PROT < 2.90 mg/L (Normal) Range: 0.0-3.0 Comments: C-Reactive Protein (CRP) provides useful information for thediagnosis, therapy and monitoring of inflammatory processesand associated diseases. For the evaluation of Relative Riskfor Cardiovascular Dise ase, a High Sensitivity CRP (HSCRP)should be ordered. :20 Erythrocyte Sed Rate Comments: [facility] Laseowlxqx6590 [place], [address] SED RATE 2 mm/h (Normal) Range: 0-30 :20 Hemoglobin A1c Comments: [facility] Ptcsmfozqe0729 [place], [address] HGB A1C 6.3 % (Normal) Range: 4.2-6.3 :20 Lipid Profile Comments: A1C TSH AST ALT BMP LIPID MIACRE VITD B12DR.OLIVER CRP CBCD [facility] Dnuuiuxeqs9719 [place], [address] VLDL 7 mg/dL (Normal) Range: [...] High Risk :20 Microalb:Creat Ratio,Random UR Comments: [facility] Ouerwqnifh8690 [place], [address] MALB:CREAT 6.4 {mg/g_CRE} (Normal) MICROALBUMIN,UR 10.0 mg/L (Normal) UR CREAT 157.00 mg/dL (Normal) :20 Thyroid Stim Hormone (TSH) Comments: A1C TSH AST ALT BMP LIPID MIACRE VITD B12DR.OLIVER CRP CBCD CMP [facility] L[address]amm[address]fk[address] [place], [address] TSH 0.54 {uIU/mL} (Normal) Range: 0.358-3.74 :20 Vitamin B12 391 pg/mL (Normal) Comments: [facility] J[address]cx[address] [place], [address] Range: 211-911 :20 Vitamin D,25 Hydroxy Comments: [facility] Hs[address]krzwls4[address] [place], [address] Vitamin D 25-OH 55.1 ng/mL (Normal) Comments: Vitamin D 25(OH) Status Range Deficiency <20 ng/mL (50nmol/L) Insuffciency 20 - 30 ng/mL (50 - 75 nmol/L) Sufficiency 30 - 100 ng/mL (75 - 250 nmol/L) Toxicity >100 ng/mL (>250 nmol/L) 3-Ivi-770924:47 Rapid Flu (46133 x 2) Influenza A Ag negative a and b (Normal) :22 Alanine Aminotransferas (SGPT) Comments: [facility] V[address]uc[address] [place], [address] ALT 29 U/L (Normal) Range: 12-78 :22 AST(SGOT) Comments: [facility] Cad[address]qwpij18[address] [place], [address] AST 21 U/L (Normal) Range: 15-37 45-Rtm-57435:22 Basic Metabolic Profile (BMP) Comments: [facility] Wwmhkbmmln036[address] [place], [address] GAP 6 (Normal) Range: 5-15 [...] (Abnormal) Range: 70-110 :22 Hemoglobin A1c Comments: [facility] Pqityiphff7488 [place], [address] ; non-emergent till apt and ordered by another dr HGB A1C 6.4 % (Abnormal) Range: 4.2-6.3 :22 Lipid Profile Comments: [facility] Trnxdljefn9812 [place], [address] VLDL 7 mg/dL (Normal) Range: [...] High Risk :22 Microalb:Creat Ratio,Random UR Comments: [facility] Hqbgskkcjl8535 [place], [address] MALB:CREAT 10.6 {mg/g_CRE} (Normal) MICROALBUMIN,UR 8.2 mg/L (Normal) UR CREAT 77.60 mg/dL (Normal) :22 Thyroid Stim Hormone (TSH) Comments: [facility] Rnlyrnbdnb9203 [address] [place], [address] TSH 0.88 {uIU/mL} (Normal) Range: 0.358-3.74 :22 Vitamin B12 470 pg/mL (Normal) Comments: [facility] Dblsbysjay9825 [address] [place], [address] Range: 211-911 :22 Vitamin D,25 Hydroxy Comments: [address] [place], [address] Vitamin D 25-OH 50.9 ng/mL (Normal) Comments: Vitamin D 25(OH) Status Range Deficiency <20 ng/mL (50nmol/L) Insuffciency 20 - 30 ng/mL (50 - 75 nmol/L) Sufficiency 30 - 100 ng/mL (75 - 250 nmol/L) Toxicity >100 ng/mL (>250 nmol/L) :46 Alanine Aminotransferas (SGPT) Comments: [address] [place], [address] ALT 30 U/L (Normal) Range: 12-78 :46 AST(SGOT) Comments: [address] [place], [address] AST 26 U/L (Normal) Range: 15-37 :46 Basic Metabolic Profile (BMP) Comments: [address] [place], [id number] GAP 7 (Normal) Range: 5-15 CO2 31.0 [...] (Normal) Range: 70-110 :46 Hemoglobin A1c Comments: [facility] Ckmpkiqnga5739 [address] [place], [place], [address] HGB A1C 6.8 % (Abnormal) Range: 4.2-6.3 :46 Lipid Profile Comments: [facility] Akqmpfvrwv8919 [facility] [address]. [place], [place], [address] VLDL 6 mg/dL (Normal) Range: 5-40 LDL [...] Risk :46 Thyroid Stim Hormone (TSH) Comments: [facility] Jzsskfpqpt2881 [facility] [place], [address] TSH 1.82 {uIU/mL} (Normal) Range: 0.358-3.74 :46 Vitamin B12 423 pg/mL (Normal) Comments: [facility] Dgtmobxonx4935 [address] [place], [place], [address] Range: 211-911 45-Rbn-04189:46 Vitamin D,25 Hydroxy Comments: [facility] [address]px[address], [address] Vitamin D 25-OH 83.9 ng/mL (Normal) Comments: Vitamin D 25(OH) Status Range Deficiency <20 ng/mL (50nmol/L) Insuffciency 20 - 30 ng/mL (50 - 75 nmol/L) Sufficiency 30 - 100 ng/mL (75 - 250 nmol/L) Toxicity >100 ng/mL (>250 nmol/L) 10-Mar-20159:14 Alanine Aminotransferas (SGPT) Comments: Test performed at:[facility] Gvwhfdhviq7862 [place] [address] ALT 26 U/L (Normal) Range: 12-78 :14 AST(SGOT) Comments: Test performed at:[facility] Dqvfhjrnmi2866 [place] [address] AST 20 U/L (Normal) Range: 15-37 10-Mar-20159:14 Basic Metabolic Profile (BMP) Comments: Test performed at:[facility] Nyxgcniugq1254 [place] [address] GAP 12 (Normal) Range: 5-15 CO2 [...] Comments: Please note revised CREATININE reference range zjoztpbjn30/22/2015. BUN 16 mg/dL (Normal) Range: 7-18 GLU 138 mg/dL (Abnormal) Range: 70-110 Comments: Fasting Glucose result greater than or equal to 126 mg/dLsuggests DIABETES MELLITUS per A.D.A. criteria. :14 Hemoglobin A1c Comments: Test performed at:[facility] Yqmeecitos6424 [place] [address] HGB A1C 6.6 % (Abnormal) Range: 4.2-6.3 :14 Lipid Profile Comments: Test performed at:[facility] Otxzwnrxcm2208 [place] [address] VLDL 6 mg/dL (Normal) Range: 5-40 [...] Thyroid Stim Hormone (TSH) Comments: Test performed at:[facility] Lmmgrybwlc2439 [place] [address] TSH 1.65 {uIU/mL} (Normal) Range: 0.358-3.74 :14 Vitamin B12 358 pg/mL (Normal) Comments: Test performed at:[facility] Hlrrvpruij5193 [place] [address] Range: 211-911 :14 Vitamin D,25 Hydroxy Comments: Test performed at:[facility] Crzrogblzj6426 [place] [address] Vitamin D 25-OH 50.8 ng/mL (Normal) Comments: Vitamin D 25(OH) Status Range Deficiency <20 ng/mL (50nmol/L) Insuffciency 20 - 30 ng/mL (50 - 75 nmol/L) Sufficiency 30 - 100 ng/mL (75 - 250 nmol/L) Toxicity >100 ng/mL (>250 nmol/L) :33 Microalbumin,Random Urine Comments: Test performed at:[facility] Znyuakpaes8696 [place] [address] MICROALBUMIN,UR 10.1 mg/L (Normal) :29 Alanine Aminotransferas (SGPT) Comments: Test performed at:[facility] Phpounzavb9024 [place] [address] ALT 26 U/L (Normal) Range: 12-78 :29 AST(SGOT) Comments: Test performed at:[facility] Cdnlvmbtjv7105 [place] [address] AST 21 U/L (Normal) Range: 15-37 :29 Basic Metabolic Profile (BMP) Comments: Test performed at:[facility] Xfpjjivtgn4777 [place] [address] GAP 7 (Normal) Range: 5-15 [...] Swartz. :29 Hemoglobin A1c Comments: Test performed at:[facility] Zhfnlmbyrw0607 [place] [address] HGB A1C 6.4 % (Abnormal) Range: 4.2-6.3 :29 Lipid Profile Comments: Test performed at:[facility] Ineyldakfj3095 [address]. [place] [id number] VLDL 4 mg/dL (Abnormal) Range: 5-40 LDL [...] Thyroid Stim Hormone (TSH) Comments: Test performed at:[facility] Gznluxakev1032 [address] [place] [address] TSH 2.02 {uIU/mL} (Normal) Range: 0.358-3.74 81-Aty-76142:29 Vitamin B12 392 pg/mL (Normal) Comments: Test performed at:[facility] Wpxsdolhwc4312 [address] [place] [id number] Range: 211-911 :29 Vitamin D,25 Hydroxy Comments: Test performed at:[facility] Elbnziioau2387 [address] [place] [id number] Vitamin D 25-OH 38.5 ng/mL (Normal) Comments: Vitamin D 25(OH) Status Range Deficiency <20 ng/mL (50nmol/L) Insuffciency 20 - 30 ng/mL (50 - 75 nmol/L) Sufficiency 30 - 100 ng/mL (75 - 250 nmol/L) Toxicity >100 ng/mL (>250 nmol/L) 1-Env-026513:15 Protein Electro, Random Urine Comments: PERFORMED BY: [facility]CoL[facility] CountyBapvhm1905 [facility] [id number] Please note: SPRCS (Normal) Comments: Protein electrophoresis scan will follow via computer, mail, orcourier delivery. M-Denis, % Not Observed % (Normal) Gamma Globulin, U 27.0 % (Normal) Beta Globulin, U 46.8 % (Normal) Viqxs-4-Pguowulv, U 10.6 % (Normal) Qnyyo-5-Opkyfczl, U 0.0 % (Normal) Albumin, U 15.7 % (Normal) Protein,Total,Urine 9.0 mg/dL (Normal) Range: 0.0-15.0 1-Erf-952863:15 Protein Electro.,S Comments: PERFORMED BY: DARREN [facility]Select [facility] [id number] Please note: SPRCS (Normal) Comments: Protein electrophoresis scan will follow via computer, mail, orcourier delivery. A/G Ratio 1.8 (Normal) Range: 0.7-2.0 Globulin, Total 2.0 g/dL (Normal) Range: 2.0-4.5 M-Denis Not Observed g/dL (Normal) Gamma Globulin 0.5 g/dL (Normal) Range: 0.5-1.6 Beta Globulin 0.7 g/dL (Normal) Range: 0.6-1.3 Kcvob-8-Zlrxodld 0.6 g/dL (Normal) Range: 0.4-1.2 Rtvag-9-Dfystron 0.2 g/dL (Normal) Range: 0.1-0.4 Albumin 3.7 g/dL (Normal) Range: 3.2-5.6 Protein, Total, Serum 5.7 g/dL (Abnormal) Range: 6.0-8.5 9-Fvx-133843:15 PARATHORMONE (90571) Comments: PERFORMED BY: DARREN [employer]70 [facility]ing[facility] [id number] PTH, Intact 17 pg/mL (Normal) Range: 15-65 0-Bzg-894702:15 PHOSPHORUS (14557) Comments: PERFORMED BY: [facility] [id number] Phosphorus, Serum 3.0 mg/dL (Normal) Range: 2.5-4.5 0-Hoe-011618:50 URINE CALCIUM DIMITRY TIMED Comments: PATIENT NOT FASTINGPERFORMED BY: DARREN KriyariSelect [facility] [id number] Information: [id number] START 10/06/14@930AM FINISH; non-emergent till apt 24 Hour (75749) Calcium, Urine 24hr 190.0 {mg/24_hr} (Normal) Range: 100.0-300.0 Calcium, Urine 19.0 mg/dL (Normal) :41 Alanine Aminotransferas (SGPT) Comments: Test performed at:[facility] Nqtwingztb254[address] [place] [address] ALT 30 U/L (Normal) Range: 12-78 :41 AST(SGOT) Comments: Test performed at:[facility] Sypyavguvi73[address] [place] [address] AST 19 U/L (Normal) Range: 15-37 :41 Basic Metabolic Profile (BMP) Comments: Test performed at:[facility] Pargwvcppj27[address] [place] [address] ; non-emergent till apt next week [...] criteria. :41 Hemoglobin A1c Comments: Test performed at:[facility] Zfeueyycqp344[address] [place] [address] HGB A1C 6.8 % (Abnormal) Range: 4.2-6.3 Comments: ADDENDA: non-emergent till apt :41 Lipid Profile Comments: Test performed at:[facility] Gaoderdkhh9527 [place] [address] VLDL 7 mg/dL (Normal) Range: [...] Risk :41 Microalbumin,Random Urine Comments: Test performed at:[facility] Dhlguexeud6998[address] [place] [address] MICROALBUMIN,UR 15.3 mg/L (Normal) :41 Thyroid Stim Hormone (TSH) Comments: Test performed at:[facility] Xreyfqebch309[address] [place] [address] TSH 1.22 {uIU/mL} (Normal) Range: 0.358-3.74 :41 Vitamin B12 415 pg/mL (Normal) Comments: Test performed at:[facility] Jqwzqwqwnr899[address] [place] [address] Range: 211-911 :41 Vitamin D,25 Hydroxy Comments: Test performed at:[facility] Exhcmdycwu6054[address] [place] [address] ; will review at 09/16 appt Vitamin D 25-OH 41.4 ng/mL (Normal) Comments: Vitamin D 25(OH) Status Range Deficiency <20 ng/mL (50nmol/L) Insuffciency 20 - 30 ng/mL (50 - 75 nmol/L) Sufficiency 30 - 100 ng/mL (75 - 250 nmol/L) Toxicity >100 ng/mL (>250 nmol/L) :11 Rapid Flu (01705 x 2) Influenza A Ag neg (Normal) :11 Rapid Strep Test, Office (33978) Rapid Strep Test, Office Negative (Normal) :52 [...] CHOL 159 mg/dL (Normal) Comments: <200 mg/dL Embtqkckp642-193 mg/dL Borderline>240 mg/dL High Risk :52 MIALB [...] <126 mg/dLsuggests IMPAIRED HOMEOSTASIS per A.D.A. criteria. 93-Ayq-51062:35 LIPID VLDL 11 mg/dL (Normal) Range: 5-40 [...] CHOL 170 mg/dL (Normal) Comments: <200 mg/dL Ahnfchxbo535-423 mg/dL Borderline>240 mg/dL High Risk :35 MIACRE MIALB 6.0 mg/L (Normal) tMICROCREAT 7.0 {mg/g_CRE} (Normal) CREU 85.1 mg/dL (Normal) :35 TSH 0.31 {uIU/mL} (Abnormal) Range: 0.358-3.74 :35 VITD 87.7 mg/mL (Normal) Comments: Vitamin D 25(OH) Status RangeDeficiency <20 ng/mL (50nmol/L)Insuffciency 20 - 30 ng/mL (50 - 75 nmol/L)Sufficiency 30 - 100 ng/mL (75 - 250 nmol/L)Toxicity >100 ng/mL (>250 nmol/L) 16-Fjq-64332:54 Urinalysis, Office (24254) UA - LEUKOCYTE ESTERASE Trace (Normal) UA - NITRITE Negative (Normal) URINE UROBILINGN DIMITRY TIMED Normal mg/dL (Normal) UA - PROTEIN Negative mg/dL (Normal) UA - PH 8 (Abnormal) UA - BLOOD Negative (Normal) UA - SPECIFIC GRAVITY 1.010 (Normal) UA - KETONES Negative mg/dL (Normal) UA - BILIRUBIN Negative (Normal) UA - GLUCOSE Negative (Normal) 14-Xqo-567012:00 CBCD ANC 2.2 {X10_3/uL} (Normal) Range: 2.0-7.7 [...] 4.2-5.4 WBC 4.4 K/mm3 (Normal) Range: 4.4-11.0 49-Ubl-120787:00 CMP Comments: DR. KHANNA ORDERED TSH,CMP,CBCD,MICROALBUMIN,LIPIDHEIDI BOB [...] 7-18 GLU 60 mg/dL (Abnormal) Range: 70-110 88-Zwt-084042:00 LIPID Comments: DR. KHANNA ORDERED TSH,CMP,CBCD,MICROALBUMIN,LIPIDHEOLI GUERRA CNP ORDERED TSH,T4F VLDL 5 mg/dL (Normal) Range: 5-40 HDL 72 mg/dL (Normal) Comments: Reference RangeHDL <40 mg/dL Low HDL CholesterolHDL >or= 60 mg/dL High HDL Cholesterol LDL 87 mg/dL (Normal) Range: 0-130 CHOL 164 mg/dL (Normal) Comments: <200 mg/dL Ojhzcmdbu889-219 mg/dL Borderline>240 mg/dL High Risk TRIG 27 mg/dL (Normal) Range: 0-199 Comments: Serum Triglycerides Reference IntervalNormal <150 mg/dLBorderline high 150 - 199 mg/dLHigh 200 - 499 mg/ dLVery High > or = 500 mg/dL 21-Joo-310492:00 MIACRE tMICROCREAT 12.6 {mg/g_CRE} (Normal) CREU 44.4 mg/dL (Normal) MIALB 5.6 mg/L (Normal) 59-Fwb-577315:00 T4F 1.40 ng/dL (Normal) Comments: DR. KHANNA ORDERED TSH,CMP,CBCD,MICROALBUMIN,LIPIDDIONE GUERRA CNP ORDERED TSH,T4F Range: 0.76-1.46 47-Uic-252376:00 TSH 1.28 {uIU/mL} (Normal) Comments: DR. KHANNA ORDERED TSH,CMP,CBCD,MICROALBUMIN,LIPIDDIONE GUERRA CNP ORDERED TSH,T4F Range: 0.358-3.74 92-Ego-997135:12 HgA1C , Office (69435) HgA1C , Office 6.9 % (Normal) Range: 4.6 - 7.1 1-Mfz-226254:45 URINE VEE CULTURE-DIMITRY COL Comments: PATIENT NOT FASTINGPERFORMED BY: DARREN [facility] Yawzcu9071 [facility] [id number] Information: SRC:DEMARCUS [id number] COUNT (89912) Result 1 MUG (Normal) Comments: Mixed urogenital nylww479 Colonies/mL Urine Culture,Comprehensive Final report (Normal) 8-Qos-224911:36 Urinalysis, Office (45620) UA - BILIRUBIN Negative (Normal) UA - BLOOD Negative (Normal) UA - GLUCOSE Moderate (Normal) UA - KETONES Negative mg/dL (Normal) UA - LEUKOCYTE ESTERASE Negative (Normal) UA - NITRITE Negative (Normal) UA - PH 6.5 (Normal) UA - PROTEIN Negative mg/dL (Normal) UA - SPECIFIC GRAVITY 1.025 (Normal) URINE UROBILINGN DIMITRY TIMED Normal mg/dL (Normal) :34 HgA1C , Office (18342) HgA1C , Office 6.4 % (Normal) Range: [...] Hill M.D.January 19, 2013 at 4:08:34 PM [id number] Signed TT/TT If you are the referring physician and would like to consult with theradiologist who provided this interpretation, jonah ansari contact Windy Bravo M.D. at [phone]. If this radiologist is unavailable, emmett directed to another radiologist to assist. If you are a patient with a question regarding this report, pl easecontactyour referring physician directly. Professional Interpretation Provided By: [employer], Phone , These documents contain legally protected and confidential healt hinformation intended only for the use of the individual or entity namedabove. If you are not the intended recipient, you are hereby notifiedthatany disclosure, copying, distribution, or other use of [facility] documents isstrictly prohibited. If you have received this information in error,pleasenotify the sender immediately and arrange for the return or destructionofthese documents. Dictated on 3 1608 by Liz CM,WindyTranscribed on 01/19/13 1610 by ITS IMPORTSign by Liz CM,Windy on 01/19/13 1611 Sign by: Windy Hlil MD 9-Bux-881389:51 EBV Acute Infection Comments: PATIENT NOT FASTINGPERFORMED BY: [facility]6370 [facility] [id number] Information: [id number] Antibodies EBV Nuclear Antigen Ab, 7.4 {AI} [...] Negative (Normal) Comments: PATIENT NOT FASTINGPERFORMED BY: [employer] [facility] Hkndvw7519 [facility] [id number] 4:51 Comments: The sensitivity of Heterophile antibody testing is 80-90%.Soco Wolfe IgM testing offers higher sensitivity. Written Authorization WAR (Normal) Comments: PATIENT NOT FASTINGPERFORMED BY: [employer] CaptureF[facility]6370 [facility] [id number] 4:51 Comments: Written Authorization Received.Authorization received from AGUSTINA HARRY [id number] by Shellie Silvestre :51 TSH (41716) Comments: PATIENT NOT FASTINGPERFORMED BY: [facility]6370 [facility] [id number] TSH 0.109 {uIU/mL} (Abnormal) Range: 0.450-4.500 :51 T4, FREE (THYROXINE) Comments: PATIENT NOT FASTINGPERFORMED BY: [facility]6370 [facility] [id number] Information: [id number] (46466) T4,Free(Direct) 2.12 ng/dL (Abnormal) Range: 0.82-1.77 4-Fco-727238:51 T3, FREE (TRIDOTHYRONINE) (69667) Comments: PATIENT NOT FASTINGPERFORMED BY: LabCoL[facility] CountyCwjcwu9548 [facility] [id number] Triiodothyronine,Free,Serum 3.1 pg/mL (Normal) Range: 2.0-4.4 6-Kuo-[id number] FOOT MIN 3 VIEWS Radiology Report See [...] Pike M.D.December 14, 2012 at 4:05:51 PM [id number] Signed GP/GP If you are the referring physician and would like to consult with theradiologist who provided this interpretation, please contact Douglas Harden at [phone]. If this radiologist is unavailable , youwill [...] 12/14/12 161 Sign by: Salvador Pike MD [id number] ANKLE MIN 3 VIEWS Radiology Report See [...] Pike M.D.December 14, 2012 at 11:22:57 AM [id number] Signed GP/GP If you are the referring physician and would like to consult with theradiologist who provided this interpretation, please contact Douglas Harden at [phone]. If this radiologist is unavailable, youwi ll [...] HYPOGLYCEMIA.CRITICAL VALUE REPEATED AND VERIFIED. CALLED TO NPWSOM56/19/13 Rudy8 MANDEEP ANDERSON.RESULTS READ BACK BY SAME. :43 DDIMQ 0.30 {FEUug/mL} (Normal) Range: 0.22-0.48 Comments: NORMAL D-Dimer level indicates no DVT or PE. :43 LIPID HDL 69 mg/dL (Normal) Comments: Reference RangeHDL <40 mg/dL Low HDL CholesterolHDL >or= 60 mg/dL High HDL Cholesterol LDL 75 mg/dL (Normal) Range: 0-130 VLDL 9 mg/dL (Normal) Range: 5-40 CHOL 153 mg/dL (Normal) Comments: <200 mg/dL Srpwjdpjb987-492 mg/dL Borderline>240 mg/dL High Risk TRIG 43 mg/dL (Normal) Comments: Serum Triglycerides Reference IntervalNormal <150 mg/dLBorderline high 150 - 199 mg/dLHigh 200 - 499 mg/ dLVery High > or = 500 mg/dL :43 TROP < 0.02 ng/mL (Normal) Comments: TROPONIN-I EXPECTED VALUES <0.05 NEGATIVE0.06 - 0.59 AT RISK OF DE> OR = 0.60 SUGGEST DE 19-Igv-23403:43 TSH 0.06 {uIU/mL} (Abnormal) Range: 0.358-3.74 85-Gya-620199:06 CHEST, PA AND LATERAL Radiology Report See [...] Pike M.D.October 24, 2012 at 11:17:45 AM [id number] nically Signed GP/GP If you are the referring physician and would like to consult with theradiologist who provided this interpretation, please contact Douglas Harden at [phone]. If this ra diologist is unavailable, youwill be directed to another radiologist to assist. If you are a patient with a question regarding this report, pleasecontactyour referring physician directly. Professional I nterpretation Provided By: [employer], Phone , These documents contain legally protected [...] return or destructionofthese documents. Dictated on 10/23/12 1708 by Shahzad CM,DukerieleTranscribed on 10/24/12 1440 by ITS IMPORTSign by Shahzad CMSalvador on 10/24/12 1441 Sign by: Shahzad CMSalvador 80-Mbd-534847:30 HEPATOBILLIARY IMG W/PHARM INT Radiology Report See Note (Normal) Comments: CLINICAL:51-year-old female with history of right upper quadrant abdominal painandnausea. RADIONUCLIDE HEPATOBILIARY SCINTIGRAPHY COMPARISON:Gallbladder ultrasound report 07/07/12, CT of the abdomen-pel vis onxrdh61/23/12 FINDINGS:Following the intravenous administration of 5.2 mCi [...] Cholecystokinin (0.02 ug/kg) was administered intravenously over r60-edhrpb period. The post CCK gallbladder ejection fraction cwcvrjmesols59 minutes following Cholec ystokinin administration was noted [...] scintigraphic evidence of trace post CCK duodenal-gastricreflux. (Khoa, Nucl Med Priscilla Sylvie Press pg. 35, 1980). Signed:Silvano Iglesias M.D.July 29, 2012 at 1:03:05 PM [id number] Signed RB/RB If you are the referring physician and would like to consult with theradiologist who provided this interpretation, please contact Douglas Sousa at [phone]. If this radiologist is unavailable, you will bedirected to another radiologist to assist. If you are a patient with a question regarding this report, pleasecontactyour referring physician directly. Professional Interpretation Provided By: [employer], Phone , T hese documents contain legally [...] 07/29/12 1308 Sign by: Silvano Iglesias DO 07-Hlx-024669:57 Urinalysis, Office (86610) UA - BILIRUBIN Negative (Normal) UA - BLOOD Negative (Normal) UA - GLUCOSE Trace (Normal) Comments: 100mg UA - KETONES Negative mg/dL (Normal) UA - LEUKOCYTE ESTERASE Negative (Normal) UA - NITRITE Negative (Normal) UA - PH 7.0 (Normal) UA - PROTEIN Negative mg/dL (Normal) UA - SPECIFIC GRAVITY 1.010 (Normal) URINE UROBILINGN DIMITRY TIMED Normal mg/dL (Normal) 15-Rdg-961453:35 GALLBLADDER Radiology Report See Note (Normal) Comments: [...] size of the right kidney. The right sebujyhkapfapv52.5 x 4.7 x 3.7 cm. Normal renal cortex. The right cortex measures 1.0cm. There is no demonstrated renal mass or cyst. There is no righthydronephrosis. IMPRESSION:Focal right hepatic lobe well-circumscribed echogenic lesion consist entwith an hemangioma. No evidence of an acute intra-abdominal process. Signed:Tan Agee M.D.July 07, 2012 at 9:08:04 PM [id number] Signed SH/SH If you are the referring ph ysician and would like to consult with theradiologist who provided this interpretation, please contact Douglas Cohn at [phone]. If this radiologist is unavailable, youwillbe directed to [facility] ther radiologist to assist. If you are a patient with a question regarding this report, pleasecontactyour referring physician directly. Professional Interpretation Provided By: [employer], Phone , These documents contain legally protected [...] 21 13 Sign by: Tan Agee MD 54-Cbj-505439:35 PELVIC CHEESEMAKER WITH ARTERIAL FLOW Radiology Report See Note [...] Agee M.D.July 07, 2012 at 9:28:02 PM [id number] Signed SH/SH If you are the referring physician and would like to consu lt with theradiologist who provided this interpretation, please contact Douglas Cohn at [phone]. If this radiologist is unavailable, youwillbe directed to another radiologist to assist. If you are a patient with a question regarding this report, pleasecontactyour referring physician directly. Professional Interpretation Provided By: Colin Phone , These documents contain legally protected [...] on 07/07/122132 Sign by: Tan Agee MD 22-Fjg-61791:58 ABDOMEN/PELVIS WITH CONTRAST Radiology Report See Note [...] Ribera M.D.June 30, 2012 at 10:36:06 AM [phone] Signed MELI/MELI If you are the referring physician and would like to consult with theradiologist who provided this interpretati on, please contact Douglas Granado at . If this radiologist is unavailable,youwill be directed to another radiologist to assist. If you are a patient with a question regarding this report, pleasecontactyour referring physician directly. Professional Interpretation Provided By: [employer], Phone , These documents contain legally protected [...] 0708 by Renato Guo MDTranscribed on 06/30/12 114 by ITS IMPORTSign by Renato Guo MD on 06/30/12 114 Sign by: ____ Renato Guo MD 02-Rnc-168386:24 Urine Culture,Comprehensive Comments: PATIENT NOT FASTINGPERFORMED BY: [facility] [id number] [facility] [id number] Information: SRC:UR [id number] Antimicrobial MIHEAD (Normal) Comments: S = Susceptible; [...] mL (Normal) Urine Final report Culture,Comprehensive (Normal) 12-Xkf-629013:20 Urinalysis, Office (79740) UA - BILIRUBIN Negative (Normal) UA - BLOOD Negative (Normal) UA - GLUCOSE Negative (Normal) UA - KETONES Negative mg/dL (Normal) UA - LEUKOCYTE ESTERASE Negative (Normal) UA - NITRITE Negative (Normal) UA - PH 6.5 (Normal) UA - PROTEIN Negative mg/dL (Normal) UA - SPECIFIC GRAVITY 1.015 (Normal) URINE UROBILINGN DIMITRY TIMED Normal mg/dL (Normal) Plan of Care Name Dates Details Instructions Body mass index (BMI) 23.0-23.9, adult : [...] Osteoporosis (Renamed from OP (osteoporosis)) : Reviewed Key Account Representative Letter Indication: Osteoporosis (Renamed from OP (osteoporosis)) Diabetes mellitus type 1, controlled : *Diabetes Education Indication: Diabetes mellitus type 1, controlled Mixed hyperlipidemia : Cholesterol mgmt Indication: Mixed hyperlipidemia Anxiety : Eprescribed prescriptions (G8553) Indication: Anxiety Accidental fall, sequela : Reviewed Key Account Representative Letter Indication: Accidental fall, sequela Cough : [...] upper quadrant Planned Observations MICROALBUMIN: CREATININE RATIO (54118) AND (08935)Indication: Diabetes mellitus type 1, controlled On: 8-Uoq-371979:07 Request METABOLIC PANEL, COMPREHENSIVE (48315)Indication: Mixed hyperlipidemia On: 4-Trb-877410:07 Request LIPID PANEL (38540)Indication: Mixed hyperlipidemia On: 9-Twx-550441:06 Request CBC W/AUTO DIFF WBC (13045)Indication: Arthritis, rheumatoid On: 7-Rkn-163816:07 Request CBC W/AUTO DIFF WBC (96353)Indication: Chest pain with high risk for cardiac etiology On: 6-Apr-78822:38 Request METABOLIC PANEL, COMPREHENSIVE (54299)Indication: Mixed hyperlipidemia On: :38 Request LIPID PANEL (06240)Indication: Mixed hyperlipidemia On: :38 Request Rapid Strep Test, Office (80583)Indication: Sore throat On: 96-Bkl-514094:51 Request Comments: negative METABOLIC PANEL, COMPREHENSIVE (07730)Indication: Diabetes mellitus type 1, controlled On: :22 Request TSH (31149)Indication: Acquired hypothyroidism On: :22 Request LIPID PANEL (26804)Indication: Mixed hyperlipidemia On: :22 Request METABOLIC PANEL, COMPREHENSIVE (61749)Indication: Mixed hyperlipidemia On: :54 Request Vitamin D Hydroxy (47504)Indication: Osteoporosis (Renamed from OP (osteoporosis)) On: 04-Fax-177213:54 Request LIPID PANEL (52499)Indication: Mixed hyperlipidemia On: 21-Uul-796214:53 Request Vitamin D Hydroxy (20106)Indication: Osteoporosis (Renamed from OP (osteoporosis)) On: 41-Aji-237672:42 Request TSH (63109)Indication: Acquired hypothyroidism On: 92-Pyw-843502:42 Request CBC W/AUTO DIFF WBC (19701)Indication: Diabetes mellitus type 1, controlled On: 95-Udr-028984:42 Request METABOLIC PANEL, COMPREHENSIVE (71186)Indication: Diabetes mellitus type 1, controlled On: 67-Xre-973214:42 Request LIPID PANEL (85607)Indication: Mixed hyperlipidemia On: 02-Nrz-309735:42 Request UPEP (09068)Indication: Osteoporosis (Renamed from OP (osteoporosis)) On: 5-Vel-347147:43 Request SPEP (41201)Indication: Osteoporosis (Renamed from OP (osteoporosis)) On: 5-Qpe-006372:43 Request Throat Culture (89712)Indication: Acute pharyngitis On: :11 Request Influenza A&B Viral Culture (99362)Indication: Acute pharyngitis On: :11 Request Vitamin D Hydroxy (12241)Indication: Osteopenia On: :25 Request LIPID PANEL (58693)Indication: Diabetes mellitus type 1, controlled On: :00 Request TSH (86803)Indication: Multinodular goiter On: 72-Ynq-236295:00 Request MICROALBUMIN: CREATININE RATIO (38058) AND (97202)Indication: Diabetes mellitus type 1, controlled On: :59 Request CBC WITH MANUAL DIFF (18856)Indication: Diabetes mellitus type 1, controlled On: :59 Request METABOLIC PANEL, COMPREHENSIVE (83158)Indication: Diabetes mellitus type 1, controlled On: :59 Request TSH (38897)Indication: Acquired hypothyroidism On: 6-Hvr-738796:17 Request Comments: 6 weeks TSH (43665)Indication: Abnormal TSH On: :52 Request T4, FREE (THYROXINE) (75890)Indication: Abnormal TSH On: :52 Request T3, FREE (TRIDOTHYRONINE) (50138)Indication: Abnormal TSH On: :52 Request EBV Panel (64559)Indication: Fatigue On: 6-Uua-986401:55 Request MONOSPOT TEST (24229)Indication: Fatigue On: 7-Pdy-119854:54 Request LIPID PANEL (66501)Indication: Mixed hyperlipidemia On: :21 Request HEPATIC FUNCTION PANEL (44598)Indication: Mixed hyperlipidemia On: 89-Xle-19572:20 Request TSH (03519)Indication: Acquired hypothyroidism On: :17 Request T4, FREE (THYROXINE) (35965)Indication: Acquired hypothyroidism On: :17 Request T3, FREE (TRIDOTHYRONINE) (48336)Indication: Acquired hypothyroidism On: :17 Request ASSAY, TROPONIN, QUANTITATIVE (aka Troponin I) (63459)Indication: CHEST PAIN On: :28 Request D-Dimer (95791)Indication: CHEST PAIN On: :28 Request CBC WITH MANUAL DIFF (03725)Indication: CHEST PAIN On: :27 Request METABOLIC PANEL, COMPREHENSIVE (21576)Indication: CHEST PAIN On: :27 Request TSH (88960)Indication: Acquired hypothyroidism On: 53-Ltu-469204:27 Request LIPID PANEL (27732)Indication: Mixed hyperlipidemia On: 29-Uey-739361:26 Request URINE VEE CULTURE-IDENTIFICATN (69955)Indication: Urinary frequency On: 7-Myx-098863:31 Request CBC WITH MANUAL DIFF (40227)Indication: Abdominal pain, acute, right upper quadrant On: 83-Kzo-860618:42 Request LIPID PANEL (63567)Indication: Mixed hyperlipidemia On: :24 Request CBC WITH MANUAL DIFF (52391)Indication: Mixed hyperlipidemia On: :24 Request METABOLIC PANEL, COMPREHENSIVE (42171)Indication: Mixed hyperlipidemia On: :24 Request Planned Encounters Medical; [facility] 3 Month FU - On: 25-Aug-2018 10:30 [facility] Fast DO, Karin A Fast DO, Karin A Planned Procedures Radiology - Cervical SpineBy: On: 21-Jun-2018 Intent Fast DO, Karin A Fast DO, Karin A Rbaommaxg-Mfj-Jxhwu (20974)By: On: 21-Jun-2018 Intent Fast DO, Karin A Fast DO, Karin A Flu Vaccine (Quadrivalent) On: 18-May-2018 Intent 83710Aq: Visit, Nurse Nuclear Stress Test/Stress On: 14-Oct-2017 Intent SPECT/AdenosineBy: Fast DO, Karin A Fast DO, Karin A SCREENING DIGITAL TOMOSYNTHESIS On: 14-Oct-2017 Intent OF BREAST (08381)By: Fast DO, Karin A Fast DO, Karin A Ultrasound - ThyroidBy: Fast DO, On: 14-Oct-2017 Intent Karin A Fast DO, Karin A ELECTROCARDIOGRAM, COMPLETE (ECG) On: 14-Oct-2017 Intent (71248)By: Fast DO, Karin A Fast Comments: ekg [...] On: 02-Feb-2017 Intent Area or Organs)By: Fast DO Karin Comments: right upper quad A Fast DO, Karin A ELECTROCARDIOGRAM, COMPLETE (ECG) On: 02-Feb-2017 Intent (14183)By: Fast DO, Karin A Fast Comments: ekg showed normal sinus rhythym, normal axis, no acute st/t wave changes DO, Karin A MRI OF RIGHT BREAST WITH AND On: 02-Nov-2016 Intent WITHOUT CONTRAST (C8905)By: Colton HARRIS, Karin A Fast DO, Karin A MAMMOGRAM BREAST BILATERAL On: 25-Oct-2016 Intent DIAGNOSTIC (71635)By: Fast DO, Karin A Fast DO, Karin A Ultrasound - Breast - RightBy: On: 22-Oct-2016 Intent Fast DO, Karin A Fast DO, Karin A Comments: axilla Ultrasound - ThyroidBy: Colton DO, On: 22-Oct-2016 Intent Karin A Fast DO, Karin A Radiology - Chest- PA and LatBy: On: 13-Sep-2016 Intent Keena Thomas DO Aerosol Treatment (48042)By: On: 13-Sep-2016 Intent Keena Thomas DO Comments: more a/e- chest less tight- gave rx for neb Flu Vaccine (Quadrivalent) On: 26-Apr-2016 Intent 58368Bs: Keena Thomas DO Comments: Lot:[id number]:02/04/17mt:0.5mlRoute:IMSite: L DltdGiven By: BUBBA Fernandez signed Radiology - Chest- PA and LatBy: On: 09-Dec-2015 Intent Fast DO, Karin A Fast DO, Karin A Comments: stat Aerosol Treatment (79907)By: Colton On: 09-Dec-2015 Intent DO, Karin A Fast DO, Karin A Ultrasound - ThyroidBy: Fast DO, On: 27-Oct-2015 Intent Karin A Fast DO, Karin A Flu Vaccine (Quadrivalent) On: 20-May-2015 Intent 83722Lf: Fast DO, Karin A Fast Comments: Lot:[id number]:02/05/16Dose:0.5mLRoute:IMSite:L DltdGiven By:CLIFTON signed Karin HARRIS A IMMUNIZ ADMNIN, 1 VAC, SNGL/COMBO On: 17-May-2014 Intent (19977)By: Karin Khanna DO Comments: lot:[id number]:02/04/2015dose:0.5mLRoute: IMlocation: L armgiven by: Karin lambert DO FLU VAC, SPLIT, >3 YEARS, On: 17-May-2014 Intent INTRAMUSC (24795)By: Jessica Javier DEXA SCAN AXIAL SKELETON On: 29-Apr-2014 Intent (56080)By: Karin Khanna DO, DO, Debra A CT - Abdomen & Pelvis (IV On: 01-Jan-2014 Intent Contrast Needed)By: Noe CM, Comments: assure check kidney stone and any other pathology Roseanne Mccarty Eprescribed prescriptions On: 01-Jan-2014 Intent (G8553)By: Noe CM, Roseanne Mccarty Ultrasound - RenalBy: Ciesa MANAGER UNIT, On: 24-Dec-2013 Intent Vanita Cutler Radiology - Lumbar SpineBy: Ciesa On: 24-Dec-2013 Intent Vanita ROJAS IMMUNIZ ADMNIN, 1 VAC, SNGL/COMBO On: 03-Dec-2013 Intent (51937)By: Visit, Nurse Comments: Lot: [id number]: [id number]: single unit dose vialRoute:SubcutaneouslySite: L deltoid regionGiven by: LIZANDRO Gonsaleseconstituted with Sterile Diluent Lot #[id number], exp. date , given within 10 minutes of reconstitution. ZOSTER VACC, SC (54298)By: Visit, On: 03-Dec-2013 Intent Nurse Ultrasound - ThyroidBy: Colton HARRIS, On: 16-Oct-2013 Intent Zak Mustafa DOa A Comments: january EsophagramBy: Karin Khanna DO A On: 16-Oct-2013 Intent Colton HARRIS Karin A Comments: with 12 mm tablet Eprescribed prescriptions On: 16-Oct-2013 Intent (G8553)By: Karin Khanna DO, DO Karin A MAMMOGRAM, SCREENING, BOTH On: 16-May-2013 Intent BREASTS (21658)By: Fast DO, Karin A Fast DO, Karin A EsophagramBy: Fast DO, Karin A On: 16-May-2013 Intent Fast DO, Karin A Comments: with 12 mmm tablet FLU VAC, SPLIT, >3 YEARS, On: 16-May-2013 Intent INTRAMUSC (40575)By: Pedro, Comments: Lot #:[id number] date:mount given:0.5mlRoute: IMSite given: L dltdVIS and ABN signedGiven by: JUNE Quiroga IMMUNIZ ADMNIN, 1 VAC, SNGL/COMBO On: 16-May-2013 Intent (31351)By: María Vasquez Eprescribed prescriptions On: 16-May-2013 Intent (G8553)By: María Vasquez Ultrasound - ThyroidBy: Ciesa On: 17-Jan-2013 Intent Vanita ROJAS Eprescribed prescriptions On: 17-Jan-2013 Intent (G8553)By: Magnolia Ricketst LPN Ear Irrigation (09139)By: Morgana On: 12-Jan-2013 Intent Vanita ROJAS Comments: IrrigationSite- R and L earAmount/Color/Quality - small amount of dark yellow/soft cerumen Toelrated well: yesCurette Used: noChelsea, SUPERVISOR [employer] Wax CurettesBy: Ciesa Vanita ROJAS On: 12-Jan-2013 [...] Karin A Comments: pa and lateral EKG (45942)By: María Vasquez On: 23-Oct-2012 Intent Comments: ekg [...] DO, Karin A TDAP VACCINE >7 IM (27191)By: On: 07-Apr-2012 Intent María Vasquez Comments: Lot #:[id number] date:mount given:0.5mlRoute: IMSite given:left deltoidGiven by: JUNE Quiroga Eprescribed prescriptions On: 07-Apr-2012 Intent (G8553)By: Fast DO, Karin A Fast DO, Karin A PNEUM VAC ADLT/IMUMNOSPR, On: 07-Apr-2012 Intent SBC/INTRM (36496)By: Pedro, Comments: received in 2010 from Alcira Daniel Instructions Name Dates Details Diabetes mellitus type 1, controlled : How [...] hyperlipidemia : DISCONTINUED - METABOLIC PANEL, COMPREHENSIVE (92224) Indication: Mixed hyperlipidemia Body mass index (BMI) [...] Anxiety : Patient Instructions Indication: Anxiety Encounters Phone Encounter On: 03-Jul-2018 9:57 Encounter Diagnosis: [...] some irritaiton-[facility] Physical, Non-smoker, Body [...] low salt diet. The medical issues the trish ent is following up for include All [...] throat. Note for Earache: Pt went to [facility] on tuesday evening. They gave her amox 500mg tid and neomycin ear drops.- was thumping - last week and felt sick to her stomach- - took advil and that helped- but then came back and [facility]- they saw wax- tried to [...] (it's getting better, is walking at the [place]: 31-Mar-2015 21:31 h is helping to [...] they are going to do reclast- [facility] and had [facility]o that was abnormal so [...] endo- she is doiing 7 drops or 18898 units a week- she had egd done [...] week(s) ago. The symptoms occur constantly. The trish ent describes this as improving. Associated symptoms [...] with colon cancer at age 80- think confine d-she went gluten free and feels absolutely [...] Pain: really pretty b ad tue- had slovenian - beans and sauce- gets some pressure and bloating- so got beet worker appt too- bowels are regular- no blood- [...] one wants her to have estrogen- her beet worker of fered low dose prozac- she didnt do - paxil made her feel terrible- zoloft made her tired - never tried cymbalta ??and is willing - she sees Jasvir Cardoza for her ra and on orencia and doing well- and mauro s appt in march with Guera Clifford- at [facility]- no target organ damge and dx age 8 with dm- and ra was diagnosed 44Encounter Diagnosis: Arthritis, rheumatoid (714.0), Anxiety (300.00), Osteopenia (733.90), Hyperlipidemia, Mixed (272.2), Hypothyroidism (244.9), Diabetes, Type I, contolled (250.01), Menopause (627.2) [facility] Payers Sandy GRIDER/REDD HENNING; a guarantor
--- OUTSIDE RECORDS SUMMARY | 2018-10-30 02:13 | XMS RPT_ITS | Continuity of Care Document ---
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 sees [facility] every 2months Status: Active Osteonecrosis [...] Active Pneumococcal vaccination given (Z23, V06.6) Comments: Lot:[id number]:04/26/18Dose:0.5mgRoute:imSite:r armGiven By:CLIFTON signed Status: Active Postmenopausal (Renamed [...] days Quantity: 60 {Capsule} Refills: 0 Ordered:24-Dec-2013 RohiniVanita steel CNP Start : 24-Dec-2013 Active FLAX SEED [...] {Solution} Refills: 0 Ordered:16-May-2013 Karin Khanna DO, DO Karin Gallagher Start : 16-May-2013 Active Omeprazole 20 MG Oral Tablet Delayed Release 1 (one) Tablet DR qd in am for 30 days Quantity: 30 {Capsule} Refills: 4 Ordered:14-Feb-2018 Karin Khanna DO, DO Karin Gallagher Start : 14-Feb-2018 Active ORENCIA, 125MG/ML (Subcutaneous [...] {Tablet} Refills: 11 Ordered:14-Feb-2018 Karin Khanna DO, DO Karin Gallagher Start : 14-Feb-2018 Active Comments:Dispense as writtenNo [...] {Tablet} Refills: 0 Ordered:14-Feb-2018 Karin Khanna DO, DO Karin Gallagher Start : 14-Feb-2018 Active Comments:thirty Amoxicillin 875 [...] Quantity: 20 {Tablet} Refills: 0 Ordered:07-Aug-2014 Vanita Sales CNP Start : 07-Aug-2014 End : 17-Aug-2014 [...] days Quantity: 15 {Tablet} Refills: 0 Ordered:25-Aug-2018 Colton HARRISKarin DO, Debra A Start : 28-Mar-2018 End : 25-Aug-2018 Inactive TraZODone HCl 50 MG Oral Tablet 1 (one) Tablet qhs prn for 0 days Quantity: 30 {Tablet} Refills: 3 Ordered:14-Feb-2018 Colton HARRISKarin DO, Debra A Start : 11-Nov-2017 End : 14-Feb-2018 Inactive VITAMIN B COMPLEX (Oral Tablet) 1 Daily Inactive ACTONEL, 150MG (Oral Tablet) 1 Tablet monthly for 30 days Quantity: 1 {Tablet} Refills: 0 Ordered:23-Oct-2012 Colton HARRISKarin DO, Debra A Start : 23-Oct-2012 End [...] days Quantity: 1 {QS} Refills: 2 Ordered:29-Apr-2014 Colton HARRISKarin DO, Debra A Start : 29-Apr-2014 End : 05-Aug-2017 Discontinued Comments:This order discontinued per [facility]. SYNTHROID, 150MCG (Oral Tablet) uad Tablet qd and 1/2 tab on Sundays for 0 days Quantity: 90 {Tablet} Refills: 0 Ordered:16-May-2013 Colton HARRISKarin DO, Debra A Start : 16-May-2013 End [...] Dates Details Septra DS *ANTI-INFECTIVE AGENTS - MIS.* (Allergy) Status: Active Comments: vomiting Past Medical [...] (M54.5, 724.2) Status: Resolved as of 14-Oct-2017 [facility] Status: Resolved as of 05-Aug-2017 [...] Status: Inactive as of 26-Apr-2016 Vaccine for abydlbsujy-tsfwzto-fynjspjmn with poliomyelitis (Z23, V06.3) Status: Inactive as [...] w/ Pelvis Result: Comments: See Note; NOTES: [facility] Imaging Services [address] [place] [address] Hips B/L min 2 views w/ Pelvis MR#: [id number] Acct: [id number] Name: CHELSEA HENNING Rep #: [id number] : 1960 F 57 From: Ronny Marie MD PCP: Karin Khanna DO Status: REG CLI Study: Hips B/L min 2 views w/ Pelvis Date of Exam: 08/25/18 Exam# [id number] Ordering Dr: Karin Khanna DO STUD Y: [...] MD at 14:02 EST , Service support [phone], CC: Karin Khanna DO Dividing Machine Operator: Signed 25-Aug-2018 Shoulder min 2 Views Result: Comments: See Note; NOTES: [facility] Imaging Services [address] [place] [address] Shoulder min 2 Views MR#: [id number] Acct: [id number] Name: CHELSEA HENNING Rep #: [id number] : 1960 F 57 From: Ronny Marie MD PCP: Karin Khanna DO Status: REG CLI Study: Shoulder min 2 Views Date of Exam: 08/25/18 Exam# [id number] Ordering Dr: Karin Khanna DO STUDY: X-RAY - LEFT [facility] REASON FOR EXAM: Female, 57 years old. [...] Service support , CC: Karin Khanna DO Dividing Machine Operator: Signed 25-Aug-2018 Shoulder min 2 Views Result: Comments: See Note; NOTES: [facility] Imaging Services [address] [place] [address] Shoulder min 2 Views MR#: [id number] Acct: [id number] Name: CHELSEA HENNING Rep #: [id number] : 1960 F 57 From: Alonzo Worthington MD PCP: Karin Khanna DO Status: REG CLI Study: Shoulder min 2 Views Date of Exam: 08/25/18 Exam# [id number] Ordering Dr: Karin Khanna DO STUDY: X-RAY - RIGHT [facility] REASON FOR EXAM: Female, 57 years [...] at 15:44 EST Tel , Service support [phone], CC: Karin Khanna DO Dividing Machine Operator: Signed 25-Aug-2018 L/S Spine Min 4 Views Result: Comments: See Note; NOTES: [facility] Imaging Services [address] [place] [address] L/S Spine Min 4 Views MR#: [id number] Acct: [id number] Name: CHELSEA HENNING Rep #: [id number] : 1960 F 57 From: Alonzo Worthington MD PCP: Karin Khanna DO Status: REG CLI Study: L/S Spine Min 4 Views Date of Exam: 08/25/18 Exam# [id number] Ordering Dr: Karin Khanna DO STUDY: X-RAY [...] Service support , CC: Karin Khanna DO Dividing Machine Operator: Signed 16-Aug-2018 PT D/C Summary (1) Result: Comments: See Note; NOTES: [facility] Physical Therapy [facility] [address] [place] [address]. [address] [place] [address] / REHABILITATION SERVICES DISCH ARGE SUMMARY MR#: [id number] Acct: [id number] Name: CHELSEA HENNING Rep #: [id number] [...] in available range, elbow 4+/5, Wrist: 4+/5, Malter Operator: diminshed but equal the other side. Reflex: [...] Progress: Progressing - Plan Plan: Discharge to [facility] TENS unit - D/C Information If there are questions or concerns regarding this patient's physical therapy, please feel free to call me at [phone]. Thank you for the referral of this patient. Kiki Quezada, WILLIET <Electronically signed by Kiki Thomas DPT> 08/16/18 0929 CC: Karin Khanna DO ELR Signed 28-Jul-2018 Re-Evaluation - PT (1) Result: Comments: See Note; NOTES: [facility] Physical Therapy [facility] [address] [place] [address] Fax REEVALUATION / MEDICARE RECERTI FICATION PHYSICAL THERAPY MR#: [id number] Acct: [id number] Name: CHELSEA HENNING Rep #: [id number] : 1960 57 From: Kiki Thomas DPT Referring Dr.: Karin Khanna DO Status: REG RCR Insurance: ANT HEM SELF PAY INSURANCE Karin Khanna DO, It has been my pleasure to treat CHELSEA HENNING over the last 8 visits for Cervical Radiculopathy. Please see the progress note below for an update on the [facility] therapy plan of care! Subjective: [...] in available range, elbow 4+/5, Wrist: 4+/5, Malter Operator: diminshed but equal the other side. Reflex: [...] do not hesitate to contact me at [phone] by phone or if you have questions or concerns regarding this new plan of care! Sincerely, Kiki Thomas, DPT <Elec tronically signed by Kiki Thomas DPT> 07/28/18 1058 CC: Karin Khanna DO ELR Signed For Medicare only, by signing this I certify the plan of care. Physicians Signature Date 10-Jul-2018 Inital Evaluation (1) - PT Result: Comments: See Note; NOTES: [facility] Physical Therapy [facility] [address] [place] [address] Fax REHABILITATION SERVICES INITIAL EVALUATION MR#: [id number] Acct: [id number] Name: CHELSEA HENNING Rep #: [id number] : 1960 57 From: Kiki Thomas DPT Referring Dr.: Karin Khanna DO Status: REG RCR Insurance: ANTHEM SELF PAY I NSURANCE Patient's Visit Information CHELSEA HENNING is a 57 year old F referred to Physical Therapy by Karin Khanna DO with a diagnosis of Cervical Radiculopathy. Date of Evaluation: 07/10/18 Physica l Therapist: Kiki Thomas - Visit Plan Frequency: [...] her neck. Tried to have massage at [facility] which made it feel better but then had another 1 and felt ho rrible by another massage therapist then back to origional then it was okay again. Swathi who is a [employer] told her to hold off on the [...] in available range, elbow 4/5, Wrist: 4/5, Malter Operator: diminshed but eq ual the other side. [...] to be FAXED BACK to us at [phone] for Medicare purposes. For Medicare only, by signing this I certify the plan of care. Please let me know if there are questions or concerns regarding this plan of care. Physician Signature: Date: <Kaylee serrano signed by Kiki Thomas DPT> 07/10/18 1051 CC: Karin Khanna DO ELR Signed 21-Jun-2018 Cerv Spine 4 or 5 Views Result: Comments: See Note; NOTES: [facility] Imaging Services [address] [place] [address] Cerv Spine 4 or 5 Views MR#: [id number] Acct: [id number] Name: CHELSEA HENNING Rep #: [id number] : 1960 F 57 From: Silvano Decker MD PCP: Karin Khanna DO Status: REG CLI Study: Cerv Spine 4 or 5 Views Date of Exam: 06/21/18 Exam# [id number] Ordering Dr: Karin Khanna DO STUDY: X-RAY [...] Service support , CC: Karin Khanna DO Dividing Machine Operator: Signed 21-Jun-2018 Ribs Uni Min 3V w/PA Chest Result: Comments: See Note; NOTES: [facility] Imaging Services [address] [place] [address] Ribs Uni Min 3V w/PA Chest MR#: [id number] Acct: [id number] Name: CHELSEA HENNING Rep #: [id number] : 1960 F 57 From: Silvano Decker MD PCP: Karin Khanna DO Status: REG CLI Study: Ribs Uni Min 3V w/PA Chest Date of Exam: 06/21/18 Exam# [id number] Ordering Dr: Karin Khanna DO STUDY: X-R [...] Silvano Decker, at 17:51 EST Tel [phone], Service support , CC: Karin Khanna DO Dividing Machine Operator: Signed 01-Nov-2017 SCREENING MAMM (CAD), BILAT Result: Comments: See Note; NOTES: [facility] Imaging Services [address] [place] [address] SCREENING MAMM (CAD), BILAT MR#: [id number] Acct: [id number] Name: CHELSEA HENNING Rep #: [id number] : 1960 F 56 From: Chris Bullock MD PCP: Karin Khanna DO Status: REG CLI Study: SCREENING MAMM (CAD), BILAT Date of Exam: 11/01/17 Exam# [id number] Ordering Dr: Karin Khanna DO MAMMOGRAPH Y [...] Service support , CC: Karin Khanna DO Dividing Machine Operator: Signed 01-Nov-2017 Thyroid Result: Comments: See Note; NOTES: [facility] Imaging Services [address] [place] [address] Thyroid MR#: [id number] Acct: [id number] Name: CHELSEA HENNING Rep #: [id number] : [birth year] F 56 From: Rajeev Farias DO PCP: Karin Khanna DO Status: REG CLI Study: Thyroid Date of Exam: 11/01/17 Exam# [id number] Ordering Dr: Karin Khanna DO STUDY: THYROID [...] Signed: Aaron Fraire at 16:25 EDT Tel [phone], Service support , CC: Karin Khanna DO Dividing Machine Operator: Signed 26-Oct-2017 Stress Report Result: Comments: See Note; NOTES: [facility] Cardiovascular Services [address] [place] [address] MR#: [id number] Acct: [id number] Name: CHELSEA HENNING Rep #: [id number] : 1960 56 From: Romel Martinez MD [...] DO Date Dictated: 10/26/17913 Date Transcribed: 10/26/17913 Dividing Machine Operator: [place] Signed 08-Apr-2017 Foot min 3 Views Result: Comments: See Note; NOTES: [facility] Imaging Services [address] [place] [address] Foot min 3 Views MR#: [id number] Acct: [id number] Name: CHELSEA HENNING Rep #: [id number] : 1960 F 56 From: Rajiv Shanks MD PCP: Karin Khanna DO Status: REG CLI Study: Foot min 3 Views Date of Exam: 04/08/17 Exam# [id number] Ordering Dr: Karin Khanna DO STUDY: X-RAY [...] support , Fax CC: Karin Khanna DO Dividing Machine Operator: Signed 02-Mar-2017 Thoracic Spine 3 Views Result: Comments: See Note; NOTES: [facility] Imaging Services [address] [place] [address] Verdana 4d Thoracic Spine 3 Views MR#: [id number] Acct: [id number] Name: ILAN HENNINGN He Rep #: [id number] : 1960 F 56 From: Yoan Gray MD PCP: Karin Khanna DO Status: REG CLI Study: Thoracic Spine 3 Views Date of Exam: 03/02/17 Exam# [id number] Ordering Dr: aKrin Khanna DO STUDY : X-RAY - THORACIC [...] Service support , CC: Karin Khanna DO Dividing Machine Operator: Signed 23-Feb-2017 NCS and/or EMG Patient Result: Comments: See Note; NOTES: [facility] Pulmonary Services/Neurology [address] [place] [id number] MR#: [id number] Acct: [id number] Name: CHELSEA HENNING Rep #: [id number] : 04/1961 56 From: Radha Hoover MD Referring Dr: Dione Guerra [employer] Status: REG CLI Ordering Dr: Date: Location: [facility] Sex: F C NCS and/or EMG [...] Khanna DO Date Dictated: 02/23/1734 Date Transcribed: 02/23/1734 Dividing Machine Operator: AA Signed 03-Feb-2017 Abdomen Limited Result: Comments: See Note; NOTES: [facility] Imaging Services [address] [place] [address] Verdana 4d Abdomen Limited MR#: [id number] Acct: [id number] Name: CHELSEA HENNING Rep #: [id number] : 1960 F 56 From: Salvador Pike MD PCP: Karin Khanna DO Status: REG CLI Study: Abdomen Limited Date of Exam: 02/03/17 Exam# [id number] Ordering Dr: Karin Khanna DO STUDY: ABDOMINAL [...] Salvador Pike MD at 14:21 EDT Tel [phone], Service support , CC: Karin Khanna DO Dividing Machine Operator: Signed 10-Nov-2016 Breast w/o and/or W Cont Bilat Result: Comments: See Note; NOTES: [facility] Imaging Services [address] [place] [address] Verdana 4d Breast w/o and/or W Cont Bilat MR#: [id number] Acct: [id number] Name: CATHERINE HENNING Rep #: [id number] : 1960 F 55 From: Terrell Schroeder MD PCP: Karin Khanna DO Status: REG CLI Study: Breast w/o and/or W Cont Bilat Date of Exam: 11/10/16 Exam# [id number] Ordering Dr: Karin Khanna DO STUDY: BILATERAL [...] MD at 16:15 EDT , Service support [phone], CC: Karin Khanna DO Dividing Machine Operator: Signed 29-Oct-2016 Breast Limited Unilateral Result: Comments: See Note; NOTES: [facility] Imaging Services [address] [place] [address] Marylou 4d Breast Limited Unilateral MR#: [id number] Acct: [id number] Name: CHELSEA HENNING Rep #: [id number] : 1960 F 55 From: Salvador Pike MD PCP: Keena Thomas DO Status: REG CLI Study: Breast Limited Unilateral Date of Exam: 10/29/16 Exam# [id number] Ordering Dr: Zak Khanna DO STUDY: ULTRASOUND [...] Pike MD 2 at 15:27 EDT Tel [phone], Service support [phone], CC: Karin Khanna DO; Keena Thomas DO Dividing Machine Operator: Signed 29-Oct-2016 DIAG MAMM W/CAD, BILAT Result: Comments: See Note; NOTES: [facility] Imaging Services [address] [place] [address] Verdana 4d DIAG MAMM W/CAD, BILAT MR#: [id number] Acct: [id number] Name: CHELSEA HENNING Rep #: [id number] : 1960 F 55 From: Salvador Piek MD PCP: Keena Thomas DO Status: REG CLI Study: DIAG MAMM W/CAD, BILAT Date of Exam: 10/29/16 Exam# [id number] Ordering Dr: Karin Khanna DO MAMMOGRAPHY - [...] Helio Pike MD at 14:53 EDT Tel [phone], Service support [phone], CC: Karin Khanna DO; Keena Thomas DO Dividing Machine Operator: Signed 26-Oct-2016 Thyroid Result: Comments: See Note; NOTES: [facility] Imaging Services [address] [place] [address] Verdana 4d Thyroid MR#: [id number] Acct: [id number] Name: CHELSEA HENNING Rep #: [id number] D OB: 1960 F 55 From: Windy Hill MD PCP: Karin Khanna DO Status: REG CLI Study: Thyroid Date of Exam: 10/26/16 Exam# [id number] Ordering Dr: Karin Khanna DO STUDY: THYROID [...] upper pole nodule not substantially changed on mvzp-ro-tzif comparison from November 23, 2013. 5 x 4 x 3 mm solid upper pole nodule of the left thyroid not substantially changed on doec-yx-iddd comparison from November 23, 2013. Electronically Signed: Windy Hill MD at 15:40 EDT , Service support , CC: Karin Khanna DO Dividing Machine Operator: Signed 30-Sep-2016 Dexa Bone Density Study (HP) Result: Comments: See Note; NOTES: [facility] Imaging Services [address] [place] [address] Verdana 4d Dexa Bone Density Study () MR#: [id number] Acct: [id number] Name: JUVENCIOCHELSEA E Rep #: [id number] : 1960 F 55 From: Salvador Pike MD PCP: Keena Thomas DO Status: REG CLI Study: Dexa Bone Density Study () Date of Exam: 09/30/16 Exam# [id number] Ordering Dr: Yasemin Firtz. STUDY: DUAL ENERGY X-RAY ABSORPTIOMETRY / DXA [...] Salvador Pike MD at 13:49 EST Tel [phone], Service support [phone], Fax CC: Dione Guerra; Keena Thomas DO; OUT OF TOWN DOCTOR Dividing Machine Operator: Signed 16-Sep-2016 Emergency Department Summary Result: Comments: See Note; NOTES: [facility] Medical Records Department [address] [place] [address] Emergency Department Summary MR#: [id number] Acct: [id number] Name: CHELSEA HENNING Rep #: [id number] : 1960 55 From: Billy Varela DO [...] plaster, AP splint and she was given [place]field. Follow up will be with orthopedics. CLINICAL IMPRESSION: 1. Right distal radius fracture. 2. Splint by physician. Billy Varela DO T: NTS JOB: [id number] 09/16/16 2335 <Electronically signed by Billy Varela DO> Date Billy Varela DO Cosigner Signature (If Indicated): Date CC: Keena Thomas DO Date Dictated: 09/16/161905 Date Transcribed: 09/16/161905 Dividing Machine Operator: Signed 16-Sep-2016 Discharge Instruction Result: Comments: See Note; NOTES: [facility] Medical Records Department [address] [place] [address] Discharge Instruction 09/16/161909 MR#: [id number] Acct: [id number] Name: CHELSEA HENNING Rep #: [id number] : 1960 55 From: Billy Varela DO [...] problems, contact your Primary Care Provider. Call [facility] ([phone]) or report to the closest Emergency Room. Call 911 if necessary. 09/16/161910 & amp;#60;Electronically signed by Billy Varela DO> Date Billy Varela DO Cosigner Signature (If Indicated): Date CC: Keena Thomas DO 16-Sep-2016 Discharge Instruction Result: Comments: See Note; NOTES: [facility] Medical Records Department [address] [place] [address] Discharge Instruction 09/16/161900 MR#: [id number] Acct: [id number] Name: ILAN HENNINGMikey Cutler Rep #: [id number] : 1960 55 From: Billy Varela DO PCP: Keena Thomas DO Status: PRE ER ED Disposition - Plan for ED Patient: Disposition: Home or Assisted Living Chief Complaint: U pper Extremity Injury Instructions: ED Fx Wrist General Prescriptions: Hydrocodone Bitart/Apap 5-325 [Litchfield 5/325] 1 - 2 tablet PO Q4H PRN PRN #20 tablet PRN Reason: Pain Referrals: Keena Thomas DO [Primary Care Provider] - Alonoz Ingram MD [STAFF PHYSICIAN] - (CALL FOR APPOINTMENT IF YOU WOULD WANT A LOCAL ORTHOPEDIC SURGEON) What to do if you have Problems For any increased pain, shortness of breath, bleeding, nausea or vomiting, chest pain, or any unexpected problems, contact your Primary Care Provider. Call [facility] Registry ([phone]) or report to the closest Emergency Room. Call [phone] if necessary. 09/16/16 1902 <Electronically signed by Billy Varela DO> Date Billy Varela DO Cosigner Signature (If Indicated): Date CC: Keena Thomas DO 16-Sep-2016 Wrist min 3 Views Result: Comments: See Note; NOTES: [facility] Imaging Services [address] [place] [address] Verdana 4d Wrist min 3 Views MR#: [id number] Acct: [id number] Name: CHELSEA HENNING Rep #: [id number] : 1960 F 55 From: Renato Maria MD PCP: Keena Thomas DO Status: REG ER Study: Wrist min 3 Views Date of Exam: 09/16/16 Exam# [id number] Ordering Dr: Billy Varela DO STUDY: X-RA [...] MD at 19:21 EST , Service support [phone], CC: Billy Varela DO; Keena Thomas DO Dividing Machine Operator: Signed 13-Sep-2016 Chest PA and Lateral Result: Comments: See Note; NOTES: [facility] Imaging Services [address] [place] [address] Verda 4d Chest PA and Lateral MR#: [id number] Acct: [id number] Name: CHELSEA HENNING Rep # : [id number] : 1960 F 55 From: Salvador Pike MD PCP: Keena Thomas DO Status: REG CLI Study: Chest PA and Lateral Date of Exam: 09/13/16 Exam# [id number] Ordering Dr: Keena Thomas DO STUDY: X-RAY [...] Salvador Pike MD at 11:36 EST Tel [phone], Service support [phone], CC: Keena Thomas DO Dividing Machine Operator: Signed 29-Mar-2016 Discharge Instruction Result: Comments: See Note; NOTES: [facility] Medical Records Department [address] [place] [address] Discharge Instruction 03/27/16 1521 MR#: [id number] Acct: [id number] Name: CHELSEA HENNING Rep #: [id number] : 1960 55 From: Marques Hutchison MD [...] or any unexpected problems, contact your doctor. [facility] Doctors Registry ([phone]) or report to the closest Emergency Room. Call 911 if necessary. 03/29/16 0715 <Electronically signed by Marques Hutchison MD> Date Marques Hutchison MD Cosigner Signature (If Indicated): Date CC: Keena Thomas DO 29-Mar-2016 Emergency Department Summary Result: Comments: See Note; NOTES: [facility] Medical Records Department [address] [place] [address] Emergency Department Summary MR#: [id number] Acct: [id number] Name: CHELSEA HENNING Rep #: [id number] : 1960 55 From: Marques Hutchison MD [...] Discharge. Marques Hutchison MD T: NTS JOB: [id number] 03/29/16 0715 <Electronically signed by Marques Hutchison MD> Date Marques Hutchison MD Cosigner Signature (If Indicated): Date CC: Keena Thomas DO Date Dictated: 03/09 1524 Date Transcribed: 03/27/16 152 Dividing Machine Operator: Signed 27-Mar-2016 Sinus/Facial Bone Result: Comments: See Note; NOTES: [facility] Imaging Services [address] [place] [address] Verdana 4d Sinus/Facial Bone MR#: [id number] Acct: [id number] Name: CHELSEA HENNING Rep #: [id number] : 1960 F 55 From: Manolo Rodriguez MD PCP: Keena Thomas DO Status: [facility] Study: Sinus/Facial Bone Date of Exam: 03/27/16 Exam# [id number] Ordering Dr: Marques Hutchison MD STUDY: CT [...] at 15:14 EDT Tel , Service support [phone], CC: Keena Thomas DO; Marques Hutchison MD Dividing Machine Operator: Signed 27-Mar-2016 Wrist min 3 Views Result: Comments: See Note; NOTES: [facility] Imaging Services [address] [place] [address] Verda 4d Wrist min 3 Views MR#: [id number] Acct: [id number] Name: CHELSEA HENNING Rep #: [id number] : 1960 F 55 From: Manolo Rodriguez MD PCP: Keena Thomas DO Status: REG ER Study: Wrist min 3 Views Date of Exam: 03/27/16 Exam# [id number] Ordering Dr: Marques Hutchison MD STUDY: X-R [...] at 15:15 EDT Tel , Service support [phone], Fax CC: Keena Thomas DO; Marques Hutchison MD Dividing Machine Operator: Signed 09-Dec-2015 Chest PA and Lateral Result: Comments: See Note; NOTES: [facility] Imaging Services [address] [place] [address] Verdana 4d Chest PA and Lateral MR#: [id number] Acct: [id number] Name: CHELSEA HENNING Rep #: [id number] : 1960 F 55 From: Halima Hook MD PCP: Karin Khanna DO Status: REG CLI Study: Chest PA and Lateral Date of Exam: 12/09/15 Exam# [id number] Ordering Dr: Karin Khanna STUDY: X-RAY CHEST [...] at 11:50 EDT Tel , Service support [phone], RAD/Chest PA and Lateral IMPRESSION: There is no acute chest disease. Electronically Signed: Halima Hook MD at 11:50 EDT Tel , Service support [phone], CC: Karin Khanna DO Dividing Machine Operator: Signed 05-Mar-2015 Upper Ext Joint Only W/WO Cont Result: Comments: See Note; NOTES: [facility] Imaging Services [address] [place] [address] MRI Report MR#: [id number] Acct: [id number] Name: CHELSEA HENNING He Rep #: [id number] D OB: 1960 F 54 From: Manolo James MD PCP: Karin Khanna DO Status: REG CLI Study: Upper Ext Joint Only W/WO Cont Date of Exam: 03/05/15 Exam# [id number] Ordering Dr: Lashonda Butler STUDY: MRI LE [...] at 11:09 EDT Tel , Service support [phone], CC: LASHONDA BUTLER; Venus Khanna DO Dividing Machine Operator: Signed 05-Feb-2015 OT Discharge Summary Result: Comments: See Note; NOTES: [facility] Occupational Therapy [facility] [address] [place] [address]. [address] [place] [address] Fax REHABILITATION SERV ICES DISCHARGE SUMMARY MR#: [id number] Acct: [id number] Name: CHELSEA HENNING Rep #: [id number] : 1960 54 From: Citlaly Moctezuma Referring [...] elbow and soreness in left wrist, decreased service tech/welder and pinch strength in left hand, decreased [...] degrees, left elbow flexion 135 degrees, left service tech/welder st rength 45 pounds. Chelsea has currently plateaued Her strength has greatly improved and she is using the static progressive brace consistently at home. The plan is to have her keep using the brace until so she no longer feels a stretch. Therefore, she will be discharged from occupational therapy. Citlaly Moctezuma OTR/L T: SHAE JOB: [id number] <Electronically signed by Citlaly sanchez > 02/05/15 1304 CC: Signed 29-Nov-2014 Lumbar Spine 2 or 3 Views Result: Comments: See Note; NOTES: [facility] Imaging Services [address] [place] [address] Radiology Report MR#: [id number] Acct: [id number] Name: CHELSEA HENNING Rep #: [id number] : 1960 F 54 From: Renato Maria MD PCP: Karin Khanna DO Status: REG CLI Study: Lumbar Spine 2 or 3 Views Date of Exam: 11/29/14 Exam# [id number] Ordering Dr: JASVIR CARDOZA STUDY: X-RAY - [...] MD at 10:23 EDT , Service support [phone], CC: Karin Khanna DO; JASVIR CARDOZA Dividing Machine Operator: Signed 04-Sep-2014 Dexa Bone Density Study (HP) Result: Comments: See Note; NOTES: [facility] Imaging Services [address] [place] [address] Bone Density Report MR#: [id number] Acct: [id number] Name: CHELSEA HENNING Rep #: [id number] : 1960 F 53 From: Salvador Pike MD PCP: Karin Khanna DO Status: [facility] CLI Study: Dexa Bone Density Study (HP) Date of Exam: 09/04/14 Exam# [id number] Ordering Dr: Karin Khanna DO STUDY: DUAL [...] http://www.iscd.org 3. National [employer] Foundation http://www.nof.org Cameron icazach Signed: Salvador Pike MD at 12:33 EST Tel [phone], Service support [phone], CC: Karin Khanna DO Dividing Machine Operator: Signed 04-Sep-2014 Dexa Bone Density Study (HP) Result: Comments: See Note; NOTES: [facility] Imaging Services [address] [place] [address] 21146 Bone Density Report MR#: [id number] Acct: [id number] Name: CHELSEA HENNING Rep #: [id number] : 1960 F 53 From: Salvador Pike MD PCP: Karin Khanna DO Status: REG CLI Study: Dexa Bone Density Study (HP) Date of Exam: 09/04/14 Exam# [id number] Ordering Dr: Karin Khanna DO ADDENDUM by Salvador Pike MD on 09/10/14 at 1026 ADDENDUM This is an addendum report Com parison is made with prior outside examination dated February 04, 2012. Since prior examination, there has been a decrease in the bone density of the proximal left femur of 7.9%. Electronically Signed: Salvador Pike MD at 10:26 EST Tel [phone], Service support [phone], 09/10/14 1026 Date cc: Karin Khanna DO [...] Salvador Pike MD at 12:33 EST Tel [phone], Service support [phone], CC: Karin Khanna DO Dividing Machine Operator: Signed 16-Jul-2014 Initial Evaluation - OT Result: Comments: See Note; NOTES: [facility] Occupational Therapy [address] [place] [address] Fax REHABILITATION SERVI ISAÍAS INITIAL EVALUATION MR#: [id number] Acct: [id number] Name: CHELSEA HENNING Rep #: [id number] : 1960 53 From: Citlaly Moctezuma Referring DrMarquis: LASHONDA BUTLER Status: REG RCR Insurance: A [...] visits. He also recommended that she not package pick up any heavy objects. At the time of [...] and thumb movements were within functional limits. 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 2. 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 3. [...] motion. Citlaly Moctezuma, OTR/L T: NTS JOB: [id number] <Electronically signed by Citlaly Moctezuma > 1 09/16/13 0852 CC: Signed For Medicare only, by signing this I certify the plan of care. Physicians Signature Date 01-Jan-2014 Abdomen/Pelvis without Cont Result: Comments: See Note; NOTES: [facility] Imaging Services [address] [place] [address] CAT Scan Report MR#: [id number] Acct: [id number] Name: CHELSEA HENNING Rep #: [id number] : 1960 F 53 From: Sid Conklin MD PCP: Karin Khanna DO Status: REG CLI Study: Abdomen/Pelvis without Cont Date of Exam: 01/01/14 Exam# [id number] Ordering Dr: Roseanne Liu MD STUDY : [...] at 16:49 EDT Tel , Service support [phone], CC: Roseanne Liu MD; Karin Khanna DO Dividing Machine Operator: Signed 27-Dec-2013 Kidney and Bladder Result: Comments: See Note; NOTES: [facility] Imaging Services [address] [place] [address] Ultrasound Report MR#: [id number] Acct: [id number] Name: CHELSEA HENNING Rep #: [id number] : 1960 F 53 From: Rajeev Farias DO PCP: Karin Khanna DO Status: REG CLI Study: Kidney and Bladder Date of Exam: 12/27/13 Exam# [id number] Ordering Dr: Karin Khanna DO STUDY: RENAL [...] Normal urinary bladder. Electronically Signed: Rajeev Brown son, at 19:47 EDT Tel [phone], Service support [phone], CC: Karin Khanna DO Dividing Machine Operator: Signed 27-Dec-2013 L/S Spine Min 4 Views Result: Comments: See Note; NOTES: [facility] Imaging Services [address] [place] [address] Radiology Report MR#: [id number] Acct: [id number] Name: CHELSEA HENNING Rep #: [id number] : 1960 F 53 From: Rajeev Farias DO PCP: Karin Khanna DO Status: REG CLI Study: L/S Spine Min 4 Views Date of Exam: 12/27/13 Exam# [id number] Ordering Dr: Karin Khanna DO STUDY: X-RAY [...] Farias DO at 20 :52 EDT Tel [phone], Service support [phone], CC: Karin Khanna DO Dividing Machine Operator: Signed 23-Nov-2013 Esophagus Only Result: Comments: See Note; NOTES: [facility] Imaging Services [address] [place] [address] Radiology Report MR#: [id number] Acct: [id number] Name: CHELSEA HENNING Rep #: [id number] : 1960 F 53 From: Salvador Pike MD PCP: Karin Khanna DO Status: REG CLI Study: Esophagus Only Date of Exam: 11/23/13 Exam# [id number] Ordering Dr: Karin Khanna DO STUDY: X-RAY [...] the gastroesophag eal CC: Karin Khanna DO Dividing Machine Operator: Signed 23-Nov-2013 Thyroid Result: Comments: See Note; NOTES: [facility] Imaging Services [address] [place] [address] Ultrasound Report MR#: [id number] Acct: [id number] Name: CHELSEA HENNING Rep #: [id number] : 1960 F 53 From: Salvador Pike MD PCP: Karin Khanna DO Status: REG CLI Study: Thyroid Date of Exam: 11/23/13 Exam# [id number] Ordering Dr: Karin Khanna DO STUDY: THYROID [...] Salvador Pike MD at 12:56 EDT Tel [phone], Service support [phone], CC: Karin Khanna DO Dividing Machine Operator: Signed Family History Unknown Family Member Name [...] smoker Vital Signs Date Test Result Details 43-Pyg-233005:38 Temperature 97.1 f Comments: Method: Temporal Pulse [...] kg/m2 Body Surface Area Calculated 1.63 m2 16-Clu-144168:44 Temperature 98.1 f Comments: Method: Oral Pulse [...] 1.63 m2 Results Date Description Value Details 70-Efu-408975:09 HgA1C , Office (98404) HgA1C , Office 6.4 % (Normal) Range: 4.6 - 7.1 89-Nub-596442:04 RHEUMATOID FACTOR-QUANT Comments: PATIENT NOT FASTINGPERFORMED BY: [facility] [id number] BY: [employer] [id number] ([address]) RA Latex Turbid. 19.3 {IU/mL} (Abnormal) Range: 0.0-13.9 25-Pmw-658625:04 CCP ANTIBODY (11169) Comments: PATIENT NOT FASTINGPERFORMED BY: [employer] [facility] [id number] BY: [employer] [id number] CCP Antibodies IgG/IgA >250 {units} (Abnormal) Range: 0-19 Comments: Negative <20 Weak positive 20 - 39 Moderate positive 40 - 59 Strong positive >59 53-Eum-378070:04 C-REACTIVE PROTEIN Comments: PATIENT NOT FASTINGPERFORMED BY: [employer] [facility] [id number] BY: [employer] [id number] (24504) C-Reactive Protein, Quant 4.1 mg/L (Normal) Range: 0.0-4.9 90-Tnv-555332:04 SED RATE ERYTHROCYTE Comments: PATIENT NOT FASTINGPERFORMED BY: CB [facility] Ahcqdj34[address] [place] [id number] BY: BN [facility] Vmuruliuti6624 [facility] [id number] (56611) Sedimentation Rate-Westergren 2 mm/h (Normal) Range: 0-40 42-Zft-104419:14 Alanine Aminotransferas (SGPT) Comments: [facility] [address] [place], [place], [address]4989(734) ALT 26 U/L (Normal) Range: 13-56 45-Adv-972381:14 AST(SGOT) Comments: [facility] [address] [place], [place], 451780(188) AST 20 U/L (Normal) Range: 15-37 67-Vot-032024:14 Basic Metabolic Profile (BMP) Comments: [facility] [address] [place], [place], [address] GAP 7 (Normal) Range: 5-15 CO2 31.0 [...] criteria.Please note revised GLUCOSE reference range /02/2018. 98-Ego-343713:14 Hemoglobin A1c Comments: [facility] [address] [place], [address] HGB A1C 6.6 % (Abnormal) Range: 4.2-6.3 84-Ddq-580153:14 Lipid Profile Comments: [facility] [address] [place], [address] VLDL 7 mg/dL (Normal) Range: 5-40 LDL [...] 200-240 mg/dL Borderline >240 mg/dL High Risk 64-Evq-426638:14 T4 Free Direct Comments: [facility] [address] [place], 065[address] T4 FREE DIRECT 1.20 ng/dL (Normal) Range: 0.76-1.46 42-Ouu-683833:14 Thyroid Stim Hormone (TSH) Comments: [facility] [address] [place], [address] TSH 1.94 {uIU/mL} (Normal) Range: 0.358-3.74 57-Tyl-723811:14 Vitamin B12 1757 pg/mL (Abnormal) Comments: [facility] [address] [place], [address] Range: 211-911 30-Fsd-270541:14 Vitamin D,25 Hydroxy Comments: [facility] [address] [place], [address] Vitamin D 25-OH 63.2 ng/mL (Normal) Range: 29.95-100.01 Comments: Vitamin D 25(OH) Status Range Deficiency <20 ng/mL (50nmol/L) Insuffciency 20 - 30 ng/mL (50 - 75 nmol/L) Sufficiency 30 - 100 ng/mL (75 - 250 nmol/L) Toxicity >100 ng/mL (>250 nmol/L) :43 Alanine Aminotransferas (SGPT) Comments: [facility] [address] [place], [address] ALT 33 U/L (Normal) Range: 13-56 :43 AST(SGOT) Comments: [facility] [address] [place], [address] AST 22 U/L (Normal) Range: 15-37 :43 Basic Metabolic Profile (BMP) Comments: [facility] [address] [place], [address] GAP 7 (Normal) Range: 5-15 CO2 32.0 [...] suggests HYPOGLYCEMIA.Please note revised GLUCOSE reference range zclqledvf07/02/2018. :43 Hemoglobin A1c Comments: [facility] [address], [address] HGB A1C 6.8 % (Abnormal) Range: 4.2-6.3 :43 Lipid Profile Comments: [facility] [address] [place], 456921 VLDL 7 mg/dL (Normal) Range: 5-40 LDL [...] High Risk :43 T4 Free Direct Comments: [facility] [address] [place], 760921 T4 FREE DIRECT 1.25 ng/dL (Normal) Range: 0.76-1.46 :43 Thyroid Stim Hormone (TSH) Comments: [facility] One[address]sb9[address] [place], 899[address] TSH 2.08 {uIU/mL} (Normal) Range: 0.358-3.74 :43 Vitamin B12 1996 pg/mL (Abnormal) Comments: [facility] At[address]oyx[address] [place], 506461 Range: 211-911 :43 Vitamin D,25 Hydroxy Comments: [facility] [address] [place], 545081 Vitamin D 25-OH 66.0 ng/mL (Normal) Range: 29.95-100.01 Comments: Vitamin D 25(OH) Status Range Deficiency <20 ng/mL (50nmol/L) Insuffciency 20 - 30 ng/mL (50 - 75 nmol/L) Sufficiency 30 - 100 ng/mL (75 - 250 nmol/L) Toxicity >100 ng/mL (>250 nmol/L) 24-Ozt-998107:42 TSH (23817) Comments: PATIENT NOT FASTINGPERFORMED BY: [facility]6370 [facility] [place] [id number] TSH 1.190 {uIU/mL} (Normal) Range: 0.450-4.500 :42 T3, FREE (TRIDOTHYRONINE) (96141) Comments: PATIENT NOT FASTINGPERFORMED BY: [facility]6370 [facility] [place] [id number] Triiodothyronine (T3), Free 2.1 pg/mL (Normal) Range: 2.0-4.4 61-Iuh-279419:42 T4, FREE (THYROXINE) (85582) Comments: PATIENT NOT FASTINGPERFORMED BY: [facility]6[address] [facility] [place] [id number] T4,Free(Direct) 1.68 ng/dL (Normal) Range: 0.82-1.77 :38 Alanine Aminotransferas (SGPT) Comments: [facility] [address] [place], [address] ALT 26 U/L (Normal) Range: 13-56 :38 AST(SGOT) Comments: [facility] [address] [place], [address] AST 23 U/L (Normal) Range: 15-37 :38 Basic Metabolic Profile (BMP) Comments: [facility] [address] [place], [address] GAP 7 (Normal) Range: 5-15 CO2 29.0 [...] A.D.A. criteria.Please note revised GLUCOSE reference range jwobkqowq69/02/2018. 88-Pbh-77353:38 Hemoglobin A1c Comments: [facility] Iscditzfqg4939 [facility] [place], [place], [address]38[address] HGB A1C 7.1 % (Abnormal) Range: 4.2-6.3 30-Eye-17220:38 Lipid Profile Comments: [facility] Tbdhjisdvu6531 [facility] [place], [place], [address]65[address] VLDL 5 mg/dL (Normal) Range: 5-40 LDL [...] High Risk :38 T4 Free Direct Comments: [facility] [address] [place], [address] T4 FREE DIRECT 1.58 ng/dL (Abnormal) Range: 0.76-1.46 21-Ywi-58888:38 Thyroid Stim Hormone (TSH) Comments: [facility] [address] [place], [address] TSH 0.73 {uIU/mL} (Normal) Range: 0.358-3.74 01-Anx-190294:27 Alanine Aminotransferas (SGPT) Comments: [facility] [address] [place], [address] ALT 27 U/L (Normal) Range: 12-78 08-Dsb-824092:27 AST(SGOT) Comments: [facility] [address] [place], [address] AST 19 U/L (Normal) Range: 15-37 44-Trq-315430:27 Basic Metabolic Profile (BMP) Comments: [facility] [address] [place], [address] GAP 7 (Normal) Range: 5-15 CO2 29.0 [...] 7-18 GLU 79 mg/dL (Normal) Range: 70-110 76-Dhf-727275:27 Hemoglobin A1c Comments: [facility] [address] [place], [address] HGB A1C 6.8 % (Abnormal) Range: 4.2-6.3 15-Zuo-530960:27 Lipid Profile Comments: [facility] [address]reb[address] [place], [address] VLDL 6 mg/dL (Normal) Range: 5-40 LDL [...] 200-240 mg/dL Borderline >240 mg/dL High Risk 43-Ipu-346793:27 Microalb:Creat Ratio,Random UR Comments: [facility] [address] [place], [address]39[address] MALB:CREAT 8.2 {mg/g_CRE} (Normal) MICROALBUMIN,UR 11.5 mg/L (Normal) UR CREAT 140.00 mg/dL (Normal) 16-Ahz-838463:27 T4 Free Direct Comments: [facility] [address] [place], [address] T4 FREE DIRECT 1.20 ng/dL (Normal) Range: 0.76-1.46 11-Dgb-619358:27 Thyroid Stim Hormone (TSH) Comments: [facility] [address] [place], [address] TSH 4.21 {uIU/mL} (Abnormal) Range: 0.358-3.74 36-Cvp-599631:27 Vitamin B12 763 pg/mL (Normal) Comments: [facility] [address] [place], [address] Range: 211-911 69-Acw-875317:27 Vitamin D,25 Hydroxy Comments: [facility] [address] [place], 096941 Vitamin D 25-OH 59.2 ng/mL (Normal) Comments: Vitamin D 25(OH) Status Range Deficiency <20 ng/mL (50nmol/L) Insuffciency 20 - 30 ng/mL (50 - 75 nmol/L) Sufficiency 30 - 100 ng/mL (75 - 250 nmol/L) Toxicity >100 ng/mL (>250 nmol/L) 18-Psb-400677:19 CRP Comments: [facility] [address] [place], [address] C-REACTIVE PROT < 2.90 mg/L (Normal) Range: 0.0-3.0 Comments: C-Reactive Protein (CRP) provides useful information for thediagnosis, therapy and monitoring of inflammatory processesand associated diseases. For the evaluation of Relative Riskfor Cardiovascular Dise ase, a High Sensitivity CRP (HSCRP)should be ordered. 63-Eum-145586:14 CBC W/Diff, Automated Comments: [facility] [address] [place], [address]40[address] Absolute Lymph 1.38 {X10_3/ul} (Normal) Range: 0.83-4.51 [...] 4.2-5.4 WBC 4.0 K/mm3 (Abnormal) Range: 4.4-11.0 47-Cfz-074316:14 Comprehensive Metabolic Profil Comments: [facility] [address] [place], [address] GAP 8 (Normal) Range: 5-15 CO2 30.0 [...] 200 mg/dLsuggests DIABETES MELLITUS per A.D.A. criteria. 33-Tvd-743578:14 Erythrocyte Sed Rate Comments: [facility] [address] [place], [place], [address]67[address] SED RATE 2 mm/h (Normal) Range: 0-30 5-Byp-767584:39 Alanine Aminotransferas (SGPT) Comments: [facility] J[address]vt[address] [facility] [address] [place], [place], [address] ALT 24 U/L (Normal) Range: 12-78 5-Uzz-864296:39 AST(SGOT) Comments: [facility] K[address] [facility] [address] [place], [place], [address] AST 23 U/L (Normal) Range: 15-37 4-Aku-292478:39 Basic Metabolic Profile (BMP) Comments: [facility] [address] [place], [place], [address] GAP 6 (Normal) Range: 5-15 CO2 31.0 [...] 126 mg/dLsuggests DIABETES MELLITUS per A.D.A. criteria. 9-Aik-768083:39 Hemoglobin A1c Comments: [facility] [address] [place], [place], [address] HGB A1C 6.5 % (Abnormal) Range: 4.2-6.3 6-Crq-290617:39 Lipid Profile Comments: [facility] [address] [place], [place], [address] VLDL 6 mg/dL (Normal) Range: 5-40 LDL [...] 200-240 mg/dL Borderline >240 mg/dL High Risk 0-Lfx-963281:39 T4 Free Direct Comments: [facility] [address] [place], [place], [address] T4 FREE DIRECT 1.36 ng/dL (Normal) Range: 0.76-1.46 6-Izz-533881:39 Thyroid Stim Hormone (TSH) Comments: [facility] [address] [place], [place], [address] TSH 3.60 {uIU/mL} (Normal) Range: 0.358-3.74 6-Yrw-431843:39 Vitamin B12 497 pg/mL (Normal) Comments: [facility] [address] [place], [address] Range: 211-911 1-Ifn-559084:39 Vitamin D,25 Hydroxy Comments: [facility] [address] [place], 716861 Vitamin D 25-OH 58.6 ng/mL (Normal) Comments: Vitamin D 25(OH) Status Range Deficiency <20 ng/mL (50nmol/L) Insuffciency 20 - 30 ng/mL (50 - 75 nmol/L) Sufficiency 30 - 100 ng/mL (75 - 250 nmol/L) Toxicity >100 ng/mL (>250 nmol/L) :42 Microscopic Examination Comments: PATIENT NOT FASTINGPERFORMED BY: [employer] [place] [id number] Bacteria None seen (Normal) Mucus Threads Present (Normal) Crystal Type Calcium Oxalate (Normal) Crystals Present (Abnormal) Epithelial Cells (non renal) 0-10 {/hpf} (Normal) Range: 0 - 10 RBC 0-2 {/hpf} (Normal) Range: 0 - 2 WBC 0-5 {/hpf} (Normal) Range: 0 - 5 :42 T3, FREE (TRIDOTHYRONINE) (31669) Comments: PATIENT NOT FASTINGPERFORMED BY: [facility] [id number] Triiodothyronine,Free,Serum 2.4 pg/mL (Normal) Range: 2.0-4.4 :42 T4, FREE (THYROXINE) (14931) Comments: PATIENT NOT FASTINGPERFORMED BY: [facility] [id number] T4,Free(Direct) 1.70 ng/dL (Normal) Range: 0.82-1.77 :42 URINE VEE CULTURE-IDENTIFICATN Comments: PATIENT NOT FASTINGPERFORMED BY: [facility] [place] Technologies[place] [id number] ([address]) Result 1 PSMS (Abnormal) Comments: Pseudomonas mvpxohsaie865 Colonies/mL . S = Susceptible; I = Intermediate; R = Resistant P = Positive; N = Negative MICS are expressed in micrograms per mL Antibiotic RSLT#1 RSLT#2 RSLT#3 RSLT#4Amikacin SCefepime SCeftazidime SCiprofloxacin SGentamicin SImipenem SLevofloxacin SMeropenem SPiperacillin STica rcillin STobramycin S Urine Final report (Abnormal) Culture,Comprehensive :42 LDH (LD) (LACTATE DEHYDROGENASE) Comments: PATIENT NOT FASTINGPERFORMED BY: [facility] Pgvujs5580 [facility] [id number] (09211) LDH 239 [iU]/L (Abnormal) Range: 119-226 :42 SED RATE ERYTHROCYTE (07822) Comments: PATIENT NOT FASTINGPERFORMED BY: [facility] Rhezie7523 [facility] [id number] Sedimentation Rate-Westergren 2 mm/h (Normal) Range: 0-40 :42 C-REACTIVE PROTEIN (83979) Comments: PATIENT NOT FASTINGPERFORMED BY: [employer] Tvhbml3755 [facility] [id number] C-Reactive Protein, Quant 2.1 mg/L (Normal) Range: 0.0-4.9 :42 URINALYSIS, W/ MICRO (19080) Comments: PATIENT NOT FASTINGPERFORMED BY: [employer] Ljdwxg6540 [facility] [id number] Microscopic Examination See below: (Normal) Comments: Microscopic was indicated and was performed. Nitrite, Urine Negative (Normal) Urobilinogen,Semi-Qn 0.2 mg/dL (Normal) Range: 0.2-1.0 Bilirubin Negative (Normal) Occult Blood Negative (Normal) Ketones Negative (Normal) Glucose Negative (Normal) Protein Negative (Normal) WBC Esterase 2+ (Abnormal) Appearance Clear (Normal) Urine-Color Yellow (Normal) pH 6.5 (Normal) Range: 5.0-7.5 Specific Marine 1.022 (Normal) Range: 1.005-1.030 :42 TSH (51583) Comments: PATIENT NOT FASTINGPERFORMED BY: [facility]6370 [facility] [id number] TSH 3.290 {uIU/mL} (Normal) Range: 0.450-4.500 :42 CBC W/AUTO DIFF WBC Comments: PATIENT NOT FASTINGPERFORMED BY: [facility] CenterCnobvl9453 [facility] [id number] Information: SRC: (78136) Immature Grans (Abs) 0.0 {x10E3/uL} (Normal) Range: [...] 3.77-5.28 WBC 4.7 {x10E3/uL} (Normal) Range: 3.4-10.8 65-Onz-378316:50 Alanine Aminotransferas (SGPT) Comments: [facility] [address] [place], [place], [address] ALT 25 U/L (Normal) Range: 12-78 23-Yzo-344339:50 AST(SGOT) Comments: [facility] [address] [place], [address] AST 21 U/L (Normal) Range: 15-37 50-Pde-604733:50 Basic Metabolic Profile (BMP) Comments: [place] [address] [place], 87[address] GAP 8 (Normal) Range: 5-15 CO2 30.0 [...] 7-18 GLU 87 mg/dL (Normal) Range: 70-110 16-Ple-227108:50 Hemoglobin A1c Comments: [place] [address] [place], [address] HGB A1C 6.5 % (Abnormal) Range: 4.2-6.3 18-Vwb-104785:50 Lipid Profile Comments: [place] [address] [place], [address] VLDL 7 mg/dL (Normal) Range: 5-40 LDL [...] 200-240 mg/dL Borderline >240 mg/dL High Risk 38-Dve-995650:50 T4 Free Direct Comments: [facility] [address] [place], [place], [address] T4 FREE DIRECT 1.39 ng/dL (Normal) Range: 0.76-1.46 73-Pxs-540543:50 Vitamin B12 513 pg/mL (Normal) Comments: [facility] [address] [place], [place], [address] Range: 211-911 53-Mra-372518:50 Vitamin D,25 Hydroxy Comments: [facility] [address] [place], [place], [address]594[address] Vitamin D 25-OH 65.2 ng/mL (Normal) Comments: Vitamin D 25(OH) Status Range Deficiency <20 ng/mL (50nmol/L) Insuffciency 20 - 30 ng/mL (50 - 75 nmol/L) Sufficiency 30 - 100 ng/mL (75 - 250 nmol/L) Toxicity >100 ng/mL (>250 nmol/L) 69-Nhs-458021:51 Rapid Flu (62592 x 2) Comments: negative Influenza A Ag neg (Normal) 42-Nmk-87124:59 THROAT CULTURE (01880) Comments: PATIENT NOT FASTINGPERFORMED BY: [employer] [facility] eVariantReplaced by [facility] [id number] Information: SRC:TH Result 1 RRF (Normal) Comments: Routine respiratory maryam Upper Respiratory Culture Final report (Normal) 32-Qrb-252189:15 PROLACTIN (91618) Comments: PATIENT NOT FASTINGPERFORMED BY: [employer] [facility] eVariantReplaced by [facility] [id number] Prolactin 10.1 ng/mL (Normal) Range: 4.8-23.3 :40 Alanine Aminotransferas (SGPT) Comments: [facility] [address] [place], [address] ALT 23 U/L (Normal) Range: 12-78 :40 AST(SGOT) Comments: [facility] [address] [place], [address] AST 22 U/L (Normal) Range: 15-37 :40 Basic Metabolic Profile (BMP) Comments: [address] [place], [address] GAP 9 (Normal) Range: 5-15 CO2 [...] per A.D.A. criteria. :40 Hemoglobin A1c Comments: [address] [place], [id number] HGB A1C 6.6 % (Abnormal) Range: 4.2-6.3 :40 Lipid Profile Comments: [address] [place], [place], [id number] VLDL 7 mg/dL (Normal) Range: 5-40 LDL [...] High Risk :40 Microalb:Creat Ratio,Random UR Comments: [facility] Kgioalcszg23[address] [place], [address] MALB:CREAT 8.4 {mg/g_CRE} (Normal) MICROALBUMIN,UR 11.5 mg/L (Normal) UR CREAT 137.00 mg/dL (Normal) :40 T4 Free Direct Comments: [facility] Vemontqida[address]68 [address] [place], [id number] T4 FREE DIRECT 1.49 ng/dL (Abnormal) Range: 0.76-1.46 :40 Thyroid Stim Hormone (TSH) Comments: [facility] Eghkcuzwko4217 [address] [place], [id number] TSH 1.79 {uIU/mL} (Normal) Range: 0.358-3.74 :40 Vitamin B12 624 pg/mL (Normal) Comments: [facility] Wrojcjhbfr6726 [address] [place], [id number] Range: 211-911 :40 Vitamin D,25 Hydroxy Comments: [facility] Gqnhyetuwr5123 [address] [place], [id number] Vitamin D 25-OH 55.6 ng/mL (Normal) Comments: Vitamin D 25(OH) Status Range Deficiency <20 ng/mL (50nmol/L) Insuffciency 20 - 30 ng/mL (50 - 75 nmol/L) Sufficiency 30 - 100 ng/mL (75 - 250 nmol/L) Toxicity >100 ng/mL (>250 nmol/L) :40 Alanine Aminotransferas (SGPT) Comments: [facility] Ccfkkcxhzj[address] [place], [address] ALT 24 U/L (Normal) Range: 12-78 :40 AST(SGOT) Comments: [facility] Nsubtyhjkd0960 [address] [place], [id number] AST 21 U/L (Normal) Range: 15-37 :40 Basic Metabolic Profile (BMP) Comments: [facility] Rkvebyomas9185 [address] [place], [address] GAP 9 (Normal) Range: 5-15 CO2 29.0 [...] per A.D.A. criteria. :40 Hemoglobin A1c Comments: [facility] [address] [place], [id number] HGB A1C 6.5 % (Abnormal) Range: 4.2-6.3 :40 Lipid Profile Comments: [facility] [address] [place], [id number] VLDL 5 mg/dL (Normal) Range: 5-40 LDL [...] mg/dL High Risk :40 Microalbumin,Random Urine Comments: [facility] [address] [place], [address] MICROALBUMIN,UR 13.4 mg/L (Normal) :40 T4 Free Direct Comments: [facility] Ej[address] [place], [id number] T4 FREE DIRECT 1.55 ng/dL (Abnormal) Range: 0.76-1.46 :40 Thyroid Stim Hormone (TSH) Comments: [facility] [address] [place], [address] TSH 1.40 {uIU/mL} (Normal) Range: 0.358-3.74 :40 Vitamin B12 720 pg/mL (Normal) Comments: [facility] Ehys[address] [place], [id number] Range: 211-911 :40 Vitamin D,25 Hydroxy Comments: [facility] Gbibfcnika1726 [address] [place], [id number] Vitamin D 25-OH 55.5 ng/mL (Normal) Comments: Vitamin D 25(OH) Status Range Deficiency <20 ng/mL (50nmol/L) Insuffciency 20 - 30 ng/mL (50 - 75 nmol/L) Sufficiency 30 - 100 ng/mL (75 - 250 nmol/L) Toxicity >100 ng/mL (>250 nmol/L) 51-Ifc-72943:08 Comprehensive Comments: DR KHANNA ORDERED LIPID/CMP/TSHH CHASIDY ORDERED A1C/AST/ALT/LIPID/BMP/TSH/T4F/B12/[facility] Dkkuasqekw0163 [address] [place], [phone] Metabolic Profil GAP 5 (Normal) Range: 5-15 [...] :08 Hemoglobin A1c Comments: DR KHANNA ORDERED LIPID/CMP/[facility] CHASIDY ORDERED A1C/AST/ALT/LIPID/BMP/TSH/T4F/B12/[facility] Kntgudrgyj4297 [place], [address] HGB A1C 6.5 % (Abnormal) Range: 4.2-6.3 :08 Lipid Profile Comments: DR KHANNA ORDERED LIPID/CMP/MANDA CHASIDY ORDERED A1C/AST/ALT/LIPID/BMP/TSH/T4F/B12/[facility] Eiuprnpkmv8455 [place], [address] VLDL 8 mg/dL (Normal) Range: [...] T4 Free Direct Comments: DR KHANNA ORDERED LIPID/CMP/MANDA CHASIDY ORDERED A1C/AST/ALT/LIPID/BMP/TSH/T4F/B12/[facility] Lapgumbrib3861 [place], [address] T4 FREE DIRECT 1.67 ng/dL (Abnormal) Range: 0.76-1.46 :08 Thyroid Stim Comments: DR KHANNA ORDERED LIPID/CMP/[facility] CHASIDY ORDERED A1C/AST/ALT/LIPID/BMP/TSH/T4F/B12/[facility]Fire[facility] Wnhpmblabj7687 [place], [address] Hormone (TSH) TSH 0.43 {uIU/mL} (Normal) Range: 0.358-3.74 :08 Vitamin B12 622 pg/mL (Normal) Comments: DR KHANNA ORDERED LIPID/CMP/[facility] CHASIDY ORDERED A1C/AST/ALT/LIPID/BMP/TSH/T4F/B12/[facility]Fire[facility] Pipdkjplyv5001 [place], [address] Range: 211-911 :08 Vitamin D,25 Comments: DR KHANNA ORDERED LIPID/CMP/MANDA CHASIDY ORDERED A1C/AST/ALT/LIPID/BMP/TSH/T4F/B12/[facility]Fire[facility] Lftewlpfcd3626 [place], [address] Hydroxy Vitamin D 25-OH 52.9 ng/mL (Normal) Comments: Vitamin D 25(OH) Status Range Deficiency <20 ng/mL (50nmol/L) Insuffciency 20 - 30 ng/mL (50 - 75 nmol/L) Sufficiency 30 - 100 ng/mL (75 - 250 nmol/L) Toxicity >100 ng/mL (>250 nmol/L) :20 CBC W/Diff, Automated Comments: [facility] Xdbfneaauh0949 [place], [address] Absolute Lymph 1.13 {X10_3/ul} (Normal) Range: [...] LIPID MIACRE VITD B12DR.OLIVER CRP CBCD CMP [facility] Uhyrmjrdrl[address] [place], [address] GAP 6 (Normal) Range: 5-15 CO2 30.0 [...] BMP LIPID MIACRE VITD B12DR.OLIVER CRP CBCD [facility] Vgdzgoluih2803 [facility] [place], [address] C-REACTIVE PROT < 2.90 mg/L (Normal) Range: 0.0-3.0 Comments: C-Reactive Protein (CRP) provides useful information for thediagnosis, therapy and monitoring of inflammatory processesand associated diseases. For the evaluation of Relative Riskfor Cardiovascular Dise ase, a High Sensitivity CRP (HSCRP)should be ordered. :20 Erythrocyte Sed Rate Comments: [facility] [address] [place], [address] SED RATE 2 mm/h (Normal) Range: 0-30 :20 Hemoglobin A1c Comments: [facility] [address] [place], [address] HGB A1C 6.3 % (Normal) Range: 4.2-6.3 :20 Lipid Profile Comments: A1C TSH AST ALT BMP LIPID MIACRE VITD B12DR.OLIVER CRP CBCD [facility] Hjqnyrickj8795 [facility] [place], [address] VLDL 7 mg/dL (Normal) Range: [...] High Risk :20 Microalb:Creat Ratio,Random UR Comments: [facility] Byroqyucet79[address] [place], [address] MALB:CREAT 6.4 {mg/g_CRE} (Normal) MICROALBUMIN,UR 10.0 mg/L (Normal) UR CREAT 157.00 mg/dL (Normal) :20 Thyroid Stim Hormone (TSH) Comments: A1C TSH AST ALT BMP LIPID MIACRE VITD B12DR.OLIVER CRP CBCD CMP [facility] Wcmmoznjge5468 [place], [address] TSH 0.54 {uIU/mL} (Normal) Range: 0.358-3.74 :20 Vitamin B12 391 pg/mL (Normal) Comments: [facility] Fsloxjpucx0949 [place], [address] Range: 211-911 :20 Vitamin D,25 Hydroxy Comments: [facility] Oseswpggsq6538 [place], [address] Vitamin D 25-OH 55.1 ng/mL (Normal) Comments: Vitamin D 25(OH) Status Range Deficiency <20 ng/mL (50nmol/L) Insuffciency 20 - 30 ng/mL (50 - 75 nmol/L) Sufficiency 30 - 100 ng/mL (75 - 250 nmol/L) Toxicity >100 ng/mL (>250 nmol/L) 0-Bye-358604:47 Rapid Flu (19612 x 2) Influenza A Ag negative a and b (Normal) 86-Mdq-34195:22 Alanine Aminotransferas (SGPT) Comments: [facility] Jgfrlwdvms94[address] [place], [id number] ALT 29 U/L (Normal) Range: 12-78 :22 AST(SGOT) Comments: [facility] Dpbnpcxejz1425 [address] [place], [address] AST 21 U/L (Normal) Range: 15-37 :22 Basic Metabolic Profile (BMP) Comments: [facility] Kefduywgkf6142 [address] [place], [address] GAP 6 (Normal) Range: 5-15 CO2 29.0 [...] 7-18 GLU 61 mg/dL (Abnormal) Range: 70-110 89-Prz-13189:22 Hemoglobin A1c Comments: [facility] Kriwimrkak6539 [address] [place], [id number] ; non-emergent till apt and ordered by another dr HGB A1C 6.4 % (Abnormal) Range: 4.2-6.3 10-Atr-37923:22 Lipid Profile Comments: [facility] Rhaignhkqp5232 [address] [place], [id number] VLDL 7 mg/dL (Normal) Range: 5-40 LDL [...] High Risk :22 Microalb:Creat Ratio,Random UR Comments: [facility] Blreltpwfi[address] [place], [address] MALB:CREAT 10.6 {mg/g_CRE} (Normal) MICROALBUMIN,UR 8.2 mg/L (Normal) UR CREAT 77.60 mg/dL (Normal) :22 Thyroid Stim Hormone (TSH) Comments: [facility] Gdsfpdtctd04[address] [place], [address] TSH 0.88 {uIU/mL} (Normal) Range: 0.358-3.74 :22 Vitamin B12 470 pg/mL (Normal) Comments: [facility] Ehzfnklxmf[address] [place], [address] Range: 211-911 :22 Vitamin D,25 Hydroxy Comments: [facility] Pjuxoqxwyt65[address] [place], [address] Vitamin D 25-OH 50.9 ng/mL (Normal) Comments: Vitamin D 25(OH) Status Range Deficiency <20 ng/mL (50nmol/L) Insuffciency 20 - 30 ng/mL (50 - 75 nmol/L) Sufficiency 30 - 100 ng/mL (75 - 250 nmol/L) Toxicity >100 ng/mL (>250 nmol/L) :46 Alanine Aminotransferas (SGPT) Comments: [facility] Dxpemocdik0[address] [place], [phone](227) ALT 30 U/L (Normal) Range: 12-78 :46 AST(SGOT) Comments: [facility] Yjzypmqgvz2658 [address] [place], [address](461) AST 26 U/L (Normal) Range: 15-37 :46 Basic Metabolic Profile (BMP) Comments: [facility] Uzhacxojar[address] [place], [place], [address] GAP 7 (Normal) Range: 5-15 CO2 31.0 [...] (Normal) Range: 70-110 :46 Hemoglobin A1c Comments: [facility] Xfmeeibhii0880 [facility] [address] [place], [address] HGB A1C 6.8 % (Abnormal) Range: 4.2-6.3 :46 Lipid Profile Comments: [facility] Eifwojgrcc[address] [place], [id number] VLDL 6 mg/dL (Normal) Range: 5-40 LDL [...] Risk :46 Thyroid Stim Hormone (TSH) Comments: [facility] Vizw[address] [place] [address] [place], [id number] TSH 1.82 {uIU/mL} (Normal) Range: 0.358-3.74 :46 Vitamin B12 423 pg/mL (Normal) Comments: [address] [place], [address] Range: 211-911 :46 Vitamin D,25 Hydroxy Comments: [facility] Ltrezoknbv[address] [place] [address] [place], [address] Vitamin D 25-OH 83.9 ng/mL (Normal) Comments: Vitamin D 25(OH) Status Range Deficiency <20 ng/mL (50nmol/L) Insuffciency 20 - 30 ng/mL (50 - 75 nmol/L) Sufficiency 30 - 100 ng/mL (75 - 250 nmol/L) Toxicity >100 ng/mL (>250 nmol/L) :14 Alanine Aminotransferas (SGPT) Comments: Test performed at:[facility] C[address]uxobkacf[address] [place] [address] [place] [address] ALT 26 U/L (Normal) Range: 12-78 :14 AST(SGOT) Comments: Test performed at:[facility] L[address] [place] [address] AST 20 U/L (Normal) Range: 15-37 :14 Basic Metabolic Profile (BMP) Comments: Test performed at:[facility] U[address] [place] [address] GAP 12 (Normal) Range: 5-15 CO2 27.0 [...] Comments: Please note revised CREATININE reference range ybamtpxek85/22/2015. BUN 16 mg/dL (Normal) Range: 7-18 GLU 138 mg/dL (Abnormal) Range: 70-110 Comments: Fasting Glucose result greater than or equal to 126 mg/dLsuggests DIABETES MELLITUS per A.D.A. criteria. :14 Hemoglobin A1c Comments: Test performed at:[facility] [address] [place] [address] HGB A1C 6.6 % (Abnormal) Range: 4.2-6.3 :14 Lipid Profile Comments: Test performed at:[facility] Reiy[address]ihkn[address] [place] [address] VLDL 6 mg/dL (Normal) Range: 5-40 [...] Thyroid Stim Hormone (TSH) Comments: Test performed at:[facility] V[address] [place] [address] TSH 1.65 {uIU/mL} (Normal) Range: 0.358-3.74 :14 Vitamin B12 358 pg/mL (Normal) Comments: Test performed at:[place] [address] [address] [place] [address] Range: 211-911 :14 Vitamin D,25 Hydroxy Comments: Test performed at:[address] [place] [address] Vitamin D 25-OH 50.8 ng/mL (Normal) Comments: Vitamin D 25(OH) Status Range Deficiency <20 ng/mL (50nmol/L) Insuffciency 20 - 30 ng/mL (50 - 75 nmol/L) Sufficiency 30 - 100 ng/mL (75 - 250 nmol/L) Toxicity >100 ng/mL (>250 nmol/L) :33 Microalbumin,Random Urine Comments: Test performed at:[address] [place] [address] MICROALBUMIN,UR 10.1 mg/L (Normal) 44-Imr-16225:29 Alanine Aminotransferas (SGPT) Comments: Test performed at:[address] [place] [address] ALT 26 U/L (Normal) Range: 12-78 :29 AST(SGOT) Comments: Test performed at:[address] [place] [address] AST 21 U/L (Normal) Range: 15-37 46-Lcb-63825:29 Basic Metabolic Profile (BMP) Comments: Test performed at:[address] [place] [address] GAP 7 (Normal) Range: 5-15 CO2 29.0 [...] HYPOGLYCEMIA.RESULTS CALLED TO MADI KRISHNAMURTHY 11/29/14 Hanna Sheridan. :29 Hemoglobin A1c Comments: Test performed at:[facility] Cymlndvczw0810 [place] [address] HGB A1C 6.4 % (Abnormal) Range: 4.2-6.3 :29 Lipid Profile Comments: Test performed at:[facility] Irkfinyidz9805 [place] [address] VLDL 4 mg/dL (Abnormal) Range: [...] Thyroid Stim Hormone (TSH) Comments: Test performed at:[facility] Ffowfxinlk3957 [place] [address] TSH 2.02 {uIU/mL} (Normal) Range: 0.358-3.74 :29 Vitamin B12 392 pg/mL (Normal) Comments: Test performed at:[facility] Hhaurppgbh3213 [place] [address] Range: 211-911 06-Jsm-77535:29 Vitamin D,25 Hydroxy Comments: Test performed at:[facility] Alhgdtxlde1037 [place] [address] Vitamin D 25-OH 38.5 ng/mL (Normal) Comments: Vitamin D 25(OH) Status Range Deficiency <20 ng/mL (50nmol/L) Insuffciency 20 - 30 ng/mL (50 - 75 nmol/L) Sufficiency 30 - 100 ng/mL (75 - 250 nmol/L) Toxicity >100 ng/mL (>250 nmol/L) 0-Djd-075922:15 Protein Electro, Random Urine Comments: PERFORMED BY: [employer] [facility] [id number] Please note: SPRCS (Normal) Comments: Protein electrophoresis scan will follow via computer, mail, orcourier delivery. M-Denis, % Not Observed % (Normal) Gamma Globulin, U 27.0 % (Normal) Beta Globulin, U 46.8 % (Normal) Ncwxc-8-Wzvafonz, U 10.6 % (Normal) Xleun-4-Euuygzmg, U 0.0 % (Normal) Albumin, U 15.7 % (Normal) Protein,Total,Urine 9.0 mg/dL (Normal) Range: 0.0-15.0 3-Yqq-971136:15 Protein Electro.,S Comments: PERFORMED BY: [employer] [facility] [id number] Please note: SPRCS (Normal) Comments: Protein electrophoresis scan will follow via computer, mail, orcourier delivery. A/G Ratio 1.8 (Normal) Range: 0.7-2.0 Globulin, Total 2.0 g/dL (Normal) Range: 2.0-4.5 M-Denis Not Observed g/dL (Normal) Gamma Globulin 0.5 g/dL (Normal) Range: 0.5-1.6 Beta Globulin 0.7 g/dL (Normal) Range: 0.6-1.3 Txjem-0-Pjzlgfbk 0.6 g/dL (Normal) Range: 0.4-1.2 Pqopj-7-Aomybefy 0.2 g/dL (Normal) Range: 0.1-0.4 Albumin 3.7 g/dL (Normal) Range: 3.2-5.6 Protein, Total, Serum 5.7 g/dL (Abnormal) Range: 6.0-8.5 7-Frp-718521:15 PARATHORMONE (52064) Comments: PERFORMED BY: [employer] Adpxza6585 [facility] [id number] PTH, Intact 17 pg/mL (Normal) Range: 15-65 0-Krs-499996:15 PHOSPHORUS (64282) Comments: PERFORMED BY: [employer]Co[facility] CenterOtpwxu8763 [facility] [id number] Phosphorus, Serum 3.0 mg/dL (Normal) Range: 2.5-4.5 6-Ijw-752406:50 URINE CALCIUM DIMITRY TIMED Comments: PATIENT NOT FASTINGPERFORMED BY: BkamLyons [facility] Medical CenterKirwyc6490 [facility] [id number] Information: [id number] START 10/06/14@930AM FINISH; non-emergent till apt 24 Hour (29219) Calcium, Urine 24hr 190.0 {mg/24_hr} (Normal) Range: 100.0-300.0 Calcium, Urine 19.0 mg/dL (Normal) :41 Alanine Aminotransferas (SGPT) Comments: Test performed at:[facility] Enuxketiyq[address] [place] [address] ALT 30 U/L (Normal) Range: 12-78 :41 AST(SGOT) Comments: Test performed at:[facility] [address]aw[address]af[address]qe[address] [place] [address] AST 19 U/L (Normal) Range: 15-37 :41 Basic Metabolic Profile (BMP) Comments: Test performed at:[facility] Wskfynillr[address] [place] [address] ; non-emergent till apt next week GAP [...] criteria. :41 Hemoglobin A1c Comments: Test performed at:[facility] Uaxqxloupc[address] [place] [address] HGB A1C 6.8 % (Abnormal) Range: 4.2-6.3 Comments: ADDENDA: non-emergent till apt :41 Lipid Profile Comments: Test performed at:[facility] Ftzbdxzokc[address] [place] [address] VLDL 7 mg/dL (Normal) Range: 5-40 LDL [...] Risk :41 Microalbumin,Random Urine Comments: Test performed at:[facility] S[address]xwxlkg[address] [place] [id number] MICROALBUMIN,UR 15.3 mg/L (Normal) :41 Thyroid Stim Hormone (TSH) Comments: Test performed at:[facility] Pfwoiroofn[address] [place] [address] TSH 1.22 {uIU/mL} (Normal) Range: 0.358-3.74 :41 Vitamin B12 415 pg/mL (Normal) Comments: Test performed at:[facility] [address]icvozfuda[address] [address] Range: 211-911 :41 Vitamin D,25 Hydroxy Comments: Test performed at:[facility] [address]rydkj84[address] [place] [address] ; will review at 09/16 appt Vitamin D 25-OH 41.4 ng/mL (Normal) Comments: Vitamin D 25(OH) Status Range Deficiency <20 ng/mL (50nmol/L) Insuffciency 20 - 30 ng/mL (50 - 75 nmol/L) Sufficiency 30 - 100 ng/mL (75 - 250 nmol/L) Toxicity >100 ng/mL (>250 nmol/L) :11 Rapid Flu (31441 x 2) Influenza A Ag neg (Normal) :11 Rapid Strep Test, Office (17831) Rapid Strep Test, Office Negative (Normal) :52 [...] CHOL 159 mg/dL (Normal) Comments: <200 mg/dL Zkrktyees530-881 mg/dL Borderline>240 mg/dL High Risk :52 MIALB [...] CHOL 170 mg/dL (Normal) Comments: <200 mg/dL Hhdkajwqd351-812 mg/dL Borderline>240 mg/dL High Risk :35 MIACRE MIALB 6.0 mg/L (Normal) tMICROCREAT 7.0 {mg/g_CRE} (Normal) CREU 85.1 mg/dL (Normal) :35 TSH 0.31 {uIU/mL} (Abnormal) Range: 0.358-3.74 :35 VITD 87.7 mg/mL (Normal) Comments: Vitamin D 25(OH) Status RangeDeficiency <20 ng/mL (50nmol/L)Insuffciency 20 - 30 ng/mL (50 - 75 nmol/L)Sufficiency 30 - 100 ng/mL (75 - 250 nmol/L)Toxicity >100 ng/mL (>250 nmol/L) 94-Ggi-13005:54 Urinalysis, Office (95733) UA - LEUKOCYTE ESTERASE Trace (Normal) UA - NITRITE Negative (Normal) URINE UROBILINGN DIMITRY TIMED Normal mg/dL (Normal) UA - PROTEIN Negative mg/dL (Normal) UA - PH 8 (Abnormal) UA - BLOOD Negative (Normal) UA - SPECIFIC GRAVITY 1.010 (Normal) UA - KETONES Negative mg/dL (Normal) UA - BILIRUBIN Negative (Normal) UA - GLUCOSE Negative (Normal) 81-Sxs-385555:00 CBCD ANC 2.2 {X10_3/uL} (Normal) Range: 2.0-7.7 [...] 4.2-5.4 WBC 4.4 K/mm3 (Normal) Range: 4.4-11.0 61-Nta-531671:00 CMP Comments: DR. KHANNA ORDERED TSH,CMP,CBCD,MICROALBUMIN,LIPIDHEIDI BOB [...] 7-18 GLU 60 mg/dL (Abnormal) Range: 70-110 83-Ihc-142243:00 LIPID Comments: DR. KHANNA ORDERED TSH,CMP,CBCD,MICROALBUMIN,LIPIDHEIDI BOB GUERRA ORDERED TSH,T4F VLDL 5 mg/dL (Normal) Range: 5-40 HDL 72 mg/dL (Normal) Comments: Reference RangeHDL <40 mg/dL Low HDL CholesterolHDL >or= 60 mg/dL High HDL Cholesterol LDL 87 mg/dL (Normal) Range: 0-130 CHOL 164 mg/dL (Normal) Comments: <200 mg/dL Wcaetslel395-637 mg/dL Borderline>240 mg/dL High Risk TRIG 27 mg/dL (Normal) Range: 0-199 Comments: Serum Triglycerides Reference IntervalNormal <150 mg/dLBorderline high 150 - 199 mg/dLHigh 200 - 499 mg/ dLVery High > or = 500 mg/dL 75-Oza-075491:00 MIACRE tMICROCREAT 12.6 {mg/g_CRE} (Normal) CREU 44.4 mg/dL (Normal) MIALB 5.6 mg/L (Normal) 82-Gdb-634975:00 T4F 1.40 ng/dL (Normal) Comments: DR. KHANNA ORDERED TSH,CMP,CBCD,MICROALBUMIN,LIPIDHEIDI CHASIDY,BOB ORDERED TSH,T4F Range: 0.76-1.46 :00 TSH 1.28 {uIU/mL} (Normal) Comments: DR. KHANNA ORDERED TSH,CMP,CBCD,MICROALBUMIN,LIPIDHEIDI CHASIDY,BOB ORDERED TSH,T4F Range: 0.358-3.74 91-Ldw-050397:12 HgA1C , Office (33430) HgA1C , Office 6.9 % (Normal) Range: 4.6 - 7.1 :45 URINE VEE CULTURE-DIMITRY COL Comments: PATIENT NOT FASTINGPERFORMED BY: [facility]6370 [facility] [id number] Information: SRC:URC [id number] COUNT (92993) Result 1 MUG (Normal) Comments: Mixed urogenital hqxyg583 Colonies/mL Urine Culture,Comprehensive Final report (Normal) :36 Urinalysis, Office (00144) UA - BILIRUBIN Negative (Normal) UA - BLOOD Negative (Normal) UA - GLUCOSE Moderate (Normal) UA - KETONES Negative mg/dL (Normal) UA - LEUKOCYTE ESTERASE Negative (Normal) UA - NITRITE Negative (Normal) UA - PH 6.5 (Normal) UA - PROTEIN Negative mg/dL (Normal) UA - SPECIFIC GRAVITY 1.025 (Normal) URINE UROBILINGN DIMITRY TIMED Normal mg/dL (Normal) 6-Hxe-981462:34 HgA1C , Office (46215) HgA1C , Office 6.4 % (Normal) Range: [...] Hill M.D.January 19, 2013 at 4:08:34 PM [id number] Signed TT/TT If you are the referring physician and would like to consult with theradiologist who provided this interpretation, jonah ansari contact Windy Bravo M.D. at [phone]. If this radiologist is unavailable, youwillbe directed to another radiologist to assist. If you are a patient with a question regarding this report, pl easecontactyour referring physician directly. Professional Interpretation Provided By: [place], Phone , These documents contain legally protected and confidential healt hinformation intended only for the use of the individual or entity namedabove. If you are not the intended recipient, you are hereby notifiedthatany disclosure, copying, distribution, or other use of [facility] documents isstrictly prohibited. If you have received this information in error,pleasenotify the sender immediately and arrange for the return or destructionofthese documents. Dictated on 3 1608 by Liz CM,TheresaTranscribed on 01/19/13 1610 by ITS IMPORTSign by Liz CM,Windy on 01/19/13 161 Sign by: Liz CM,Windy 3-Snq-085609:51 EBV Acute Infection Comments: PATIENT NOT FASTINGPERFORMED BY: [facility] [id number] Information: [id number] Antibodies EBV Nuclear Antigen Ab, 7.4 {AI} (Abnormal) Range: 0.0-0.8 IgG Comments: Negative <0.9 Equivocal 0.9 - 1.0 Positive >1.0 Interpretation: [facility] (Normal) Comments: EBV Interpretation Chart . Interpretation [...] Negative (Normal) Comments: PATIENT NOT FASTINGPERFORMED BY: [facility]6[address] [facility] [id number] 4:51 Comments: The sensitivity of Heterophile antibody testing is 80-90%.Soco Wolfe IgM testing offers higher sensitivity. Written Authorization WAR (Normal) Comments: PATIENT NOT FASTINGPERFORMED BY: [facility]6[address] [facility] [id number] 4:51 Comments: Written Authorization Received.Authorization received from VANITA SALESAGUSTINA [id number] by Shellie Silvestre :51 TSH ([id number]) Comments: PATIENT NOT FASTINGPERFORMED BY: [facility] [id number] [facility] [id number] TSH 0.109 {uIU/mL} (Abnormal) Range: 0.450-4.500 [id number]:51 T4, FREE (THYROXINE) Comments: PATIENT NOT FASTINGPERFORMED BY: [facility] [id number] [facility] [id number] Information: [id number] ([id number]) T4,Free(Direct) 2.12 ng/dL (Abnormal) Range: 0.82-1.77 :51 T3, FREE (TRIDOTHYRONINE) ([id number]) Comments: PATIENT NOT FASTINGPERFORMED BY: [facility] [id number] [facility] [id number] Triiodothyronine,Free,Serum 3.1 pg/mL (Normal) Range: 2.0-4.4 0-Ogs-082163:36 FOOT MIN 3 VIEWS Radiology Report See [...] Pike M.D.December 14, 2012 at 4:05:51 PM [id number] Signed GP/GP If you are the referring physician and would like to consult with theradiologist who provided this interpretation, please contact Douglas Harden at [phone]. If this radiologist is unavailable , youwill [...] 12/14/12 1612 Sign by: Salvador Pike MD 8-Xsd-372408:35 ANKLE MIN 3 VIEWS Radiology Report See [...] Pike M.D.December 14, 2012 at 11:22:57 AM [id number] Signed GP/GP If you are the referring physician and would like to consult with theradiologist who provided this interpretation, please contact Douglas Harden at [phone]. If this radiologist is unavailable, youwi ll [...] 12/14/12 1133 Sign by: Salvador Pike MD 62-Ukv-89952:43 CBCMD ANC 1.6 3/uL (Abnormal) Range: 2.0-7.7 [...] HYPOGLYCEMIA.CRITICAL VALUE REPEATED AND VERIFIED. CALLED TO CIACKP23/19/13 1308 MANDEEP ANDERSON.RESULTS READ BACK BY SAME. :43 DDIMQ 0.30 {FEUug/mL} (Normal) Range: 0.22-0.48 Comments: NORMAL D-Dimer level indicates no DVT or PE. :43 LIPID HDL 69 mg/dL (Normal) Comments: Reference RangeHDL <40 mg/dL Low HDL CholesterolHDL >or= 60 mg/dL High HDL Cholesterol LDL 75 mg/dL (Normal) Range: 0-130 VLDL 9 mg/dL (Normal) Range: 5-40 CHOL 153 mg/dL (Normal) Comments: <200 mg/dL Ydeksjqxi617-535 mg/dL Borderline>240 mg/dL High Risk TRIG 43 mg/dL (Normal) Comments: Serum Triglycerides Reference IntervalNormal <150 mg/dLBorderline high 150 - 199 mg/dLHigh 200 - 499 mg/ dLVery High > or = 500 mg/dL :43 TROP < 0.02 ng/mL (Normal) Comments: TROPONIN-I EXPECTED VALUES <0.05 NEGATIVE0.06 - 0.59 AT RISK OF FL> OR = 0.60 SUGGEST FL :43 TSH 0.06 {uIU/mL} (Abnormal) Range: 0.358-3.74 41-Kyf-953286:06 CHEST, PA AND LATERAL Radiology Report See [...] Pike M.D.October 24, 2012 at 11:17:45 AM [id number] nically Signed GP/GP If you are the referring physician and would like to consult with theradiologist who provided this interpretation, please contact Douglas Harden at [phone]. If this ra diologist is unavailable, youwill be directed to another radiologist to assist. If you are a patient with a question regarding this report, pleasecontactyour referring physician directly. Professional I nterpretation Provided By: Colin, Phone , These documents [...] documents. Dictated on 10/23/12 1706 by Shahzad CM,Matthewranscribed on 10/24/12 1440 by ITS IMPORTSign by Salvador Pike MD on 10/24/12 1441 Sign by: Salvador Pike MD 78-Ihx-495826:30 HEPATOBILLIARY IMG W/PHARM INT Radiology Report See Note (Normal) Comments: CLINICAL:51-year-old female with history of right upper quadrant abdominal painandnausea. RADIONUCLIDE HEPATOBILIARY SCINTIGRAPHY COMPARISON:Gallbladder ultrasound report 07/07/12, CT of the abdomen-pel vis duynsk11/23/12 FINDINGS:Following the intravenous administration of 5.2 mCi [...] Cholecystokinin (0.02 ug/kg) was administered intravenously over o70-vkebir period. The post CCK gallbladder ejection fraction onzrjxftpjuk01 minutes following Cholec ystokinin administration was noted [...] Iglesias M.D.July 29, 2012 at 1:03:05 PM [id number] Signed RB/RB If you are the referring physician and would like to consult with theradiologist who provided this interpretation, please contact Douglas Sousa at [phone]. If this radiologist is unavailable, you will bedirected to another radiologist to assist. If you are a patient with a question regarding this report, pleasecontactyour referring physician directly. Professional Interpretation Provided By: [place], Phone , T hese documents contain legally [...] IMPORTSign by Silvano Iglesias DO on 07/29/12 130 Sign by: Silvano Iglesias DO 15-Lit-360589:57 Urinalysis, Office (55920) UA - BILIRUBIN Negative (Normal) UA - BLOOD Negative (Normal) UA - GLUCOSE Trace (Normal) Comments: 100mg UA - KETONES Negative mg/dL (Normal) UA - LEUKOCYTE ESTERASE Negative (Normal) UA - NITRITE Negative (Normal) UA - PH 7.0 (Normal) UA - PROTEIN Negative mg/dL (Normal) UA - SPECIFIC GRAVITY 1.010 (Normal) URINE UROBILINGN DIMITRY TIMED Normal mg/dL (Normal) 05-Yqk-575263:35 GALLBLADDER Radiology Report See Note (Normal) Comments: [...] size of the right kidney. The right kyczwdmzhmdzbr04.5 x 4.7 x 3.7 cm. Normal renal cortex. The right cortex measures 1.0cm. There is no demonstrated renal mass or cyst. There is no righthydronephrosis. IMPRESSION:Focal right hepatic lobe well-circumscribed echogenic lesion consist entwith an hemangioma. No evidence of an acute intra-abdominal process. Signed:Tan Agee M.D.July 07, 2012 at 9:08:04 PM [id number] Signed SH/SH If you are the referring ph ysician and would like to consult with theradiologist who provided this interpretation, please contact Cyrus Cohn. at [phone]. If this radiologist is unavailable, youwillbe directed to [facility] ther radiologist to assist. If you are a patient with a question regarding this report, pleasecontactyour referring physician directly. Professional Interpretation Provided By: [place], Phone , These documents contain legally protected [...] 21 13 Sign by: Tan Agee MD 83-Lwr-546493:35 PELVIC SERGEANT AT ARMS WITH ARTERIAL FLOW Radiology Report See Note [...] Agee M.D.July 07, 2012 at 9:28:02 PM [id number] Signed SH/SH If you are the referring physician and would like to consu lt with theradiologist who provided this interpretation, please contact Douglas Cohn at [phone]. If this radiologist is unavailable, youwillbe directed to another radiologist to assist. If you are a patient with a question regarding this report, pleasecontactyour referring physician directly. Professional Interpretation Provided By: [place], Phone , These documents contain legally protected [...] on 07/07/122132 Sign by: Tan Agee MD 59-Gqg-07003:58 ABDOMEN/PELVIS WITH CONTRAST Radiology Report See Note [...] Ribera M.D.June 30, 2012 at 10:36:06 AM [id number] Signed MELI/MELI If you are the referring physician and would like to consult with theradiologist who provided this interpretati on, please contact Douglas Granado at . If this radiologist is unavailable,youwill be directed to another radiologist to assist. If you are a patient with a question regarding this report, pleasecontactyour referring physician directly. Professional Interpretation Provided By: [place], Phone , These documents contain legally protected [...] 1140 Sign by: ____ Renato Guo MD 13-Som-761381:24 Urine Culture,Comprehensive Comments: PATIENT NOT FASTINGPERFORMED BY: [facility] [id number] Information: SRC:UR [id number] Antimicrobial MIHEAD (Normal) Comments: S = Susceptible; [...] mL (Normal) Urine Final report Culture,Comprehensive (Normal) 93-Xla-548536:20 Urinalysis, Office (88773) UA - BILIRUBIN Negative (Normal) UA - [...] Osteoporosis (Renamed from OP (osteoporosis)) : Reviewed Track Worker Letter Indication: Osteoporosis (Renamed from OP (osteoporosis)) Diabetes mellitus type 1, controlled : *Diabetes Education Indication: Diabetes mellitus type 1, controlled Mixed hyperlipidemia : Cholesterol mgmt Indication: Mixed hyperlipidemia Anxiety : Eprescribed prescriptions (G8553) Indication: Anxiety Accidental fall, sequela : Reviewed Track Worker Letter Indication: Accidental fall, sequela Cough : [...] upper quadrant Planned Observations MICROALBUMIN: CREATININE RATIO (27788) AND (05080)Indication: Diabetes mellitus type 1, controlled On: 4-Wur-680179:07 Request METABOLIC PANEL, COMPREHENSIVE (32877)Indication: Mixed hyperlipidemia On: 0-Bll-413988:07 Request LIPID PANEL (19941)Indication: Mixed hyperlipidemia On: :06 Request CBC W/AUTO DIFF WBC (58869)Indication: Arthritis, rheumatoid On: :07 Request CBC W/AUTO DIFF WBC (99342)Indication: Chest pain with high risk for cardiac etiology On: :38 Request METABOLIC PANEL, COMPREHENSIVE (48898)Indication: Mixed hyperlipidemia On: :38 Request LIPID PANEL (11423)Indication: Mixed hyperlipidemia On: :38 Request Rapid Strep Test, Office (23461)Indication: Sore throat On: 25-Ajy-789084:51 Request Comments: negative METABOLIC PANEL, COMPREHENSIVE (83321)Indication: Diabetes mellitus type 1, controlled On: 20-Xkt-258735:22 Request TSH (20983)Indication: Acquired hypothyroidism On: 68-Sxd-748648:22 Request LIPID PANEL (86976)Indication: Mixed hyperlipidemia On: 48-Hzk-361469:22 Request METABOLIC PANEL, COMPREHENSIVE (13019)Indication: Mixed hyperlipidemia On: 19-Fou-675586:54 Request Vitamin D Hydroxy (83902)Indication: Osteoporosis (Renamed from OP (osteoporosis)) On: 83-Ycx-995742:54 Request LIPID PANEL (99145)Indication: Mixed hyperlipidemia On: 99-Mag-472216:53 Request Vitamin D Hydroxy (61836)Indication: Osteoporosis (Renamed from OP (osteoporosis)) On: 80-Ary-384460:42 Request TSH (25973)Indication: Acquired hypothyroidism On: 69-Pcr-522495:42 Request CBC W/AUTO DIFF WBC (71346)Indication: Diabetes mellitus type 1, controlled On: :42 Request METABOLIC PANEL, COMPREHENSIVE (60566)Indication: Diabetes mellitus type 1, controlled On: :42 Request LIPID PANEL (25759)Indication: Mixed hyperlipidemia On: :42 Request UPEP (56803)Indication: Osteoporosis (Renamed from OP (osteoporosis)) On: :43 Request SPEP (29177)Indication: Osteoporosis (Renamed from OP (osteoporosis)) On: :43 Request Throat Culture (07680)Indication: Acute pharyngitis On: :11 Request Influenza A&B Viral Culture (90807)Indication: Acute pharyngitis On: :11 Request Vitamin D Hydroxy (18365)Indication: Osteopenia On: 43-Oie-238511:25 Request LIPID PANEL (56714)Indication: Diabetes mellitus type 1, controlled On: 50-Soh-151009:00 Request TSH (33114)Indication: Multinodular goiter On: 96-Qsp-162065:00 Request MICROALBUMIN: CREATININE RATIO (38254) AND (06576)Indication: Diabetes mellitus type 1, controlled On: 14-Hlx-657701:59 Request CBC WITH MANUAL DIFF (48790)Indication: Diabetes mellitus type 1, controlled On: 45-Xfd-083719:59 Request METABOLIC PANEL, COMPREHENSIVE (22873)Indication: Diabetes mellitus type 1, controlled On: 21-Fwz-363745:59 Request TSH (79122)Indication: Acquired hypothyroidism On: 7-Qxz-092181:17 Request Comments: 6 weeks TSH (52238)Indication: Abnormal TSH On: 49-Tdm-59630:52 Request T4, FREE (THYROXINE) (68778)Indication: Abnormal TSH On: :52 Request T3, FREE (TRIDOTHYRONINE) (32639)Indication: Abnormal TSH On: 83-Pgs-78148:52 Request EBV Panel (07554)Indication: Fatigue On: 2-Cko-117718:55 Request MONOSPOT TEST (04099)Indication: Fatigue On: 2-Pit-272462:54 Request LIPID PANEL (66730)Indication: Mixed hyperlipidemia On: 40-Lsw-42319:21 Request HEPATIC FUNCTION PANEL (23010)Indication: Mixed hyperlipidemia On: 66-Seh-87311:20 Request TSH (96020)Indication: Acquired hypothyroidism On: :17 Request T4, FREE (THYROXINE) (47472)Indication: Acquired hypothyroidism On: :17 Request T3, FREE (TRIDOTHYRONINE) (97090)Indication: Acquired hypothyroidism On: :17 Request ASSAY, TROPONIN, QUANTITATIVE (aka Troponin I) (70662)Indication: CHEST PAIN On: 20-Cgm-316488:28 Request D-Dimer (27775)Indication: CHEST PAIN On: :28 Request CBC WITH MANUAL DIFF (25648)Indication: CHEST PAIN On: 57-Mtn-512617:27 Request METABOLIC PANEL, COMPREHENSIVE (07124)Indication: CHEST PAIN On: 92-Dnb-966570:27 Request TSH (59535)Indication: Acquired hypothyroidism On: 72-Bro-184273:27 Request LIPID PANEL (63291)Indication: Mixed hyperlipidemia On: 24-Ctd-348425:26 Request URINE VEE CULTURE-IDENTIFICATN (29547)Indication: Urinary frequency On: 6-Wul-473567:31 Request CBC WITH MANUAL DIFF (11886)Indication: Abdominal pain, acute, right upper quadrant On: 58-Ymh-284075:42 Request LIPID PANEL (14437)Indication: Mixed hyperlipidemia On: 78-Qvm-311037:24 Request CBC WITH MANUAL DIFF (84804)Indication: Mixed hyperlipidemia On: 77-Qxi-138978:24 Request METABOLIC PANEL, COMPREHENSIVE (80642)Indication: Mixed hyperlipidemia On: 50-Eyj-787221:24 Request Planned Encounters Medical; [facility] 3 Month FU - On: 24-Nov-2018 10:30 [facility] Fast DO, Karin A Fast DO, Karin A Planned Procedures DEXA SCAN AXIAL SKELETON On: 25-Aug-2018 Intent (97334)By: Fast DO, Karin A Fast Comments: october [...] DIGITAL TOMOSYNTHESIS On: 25-Aug-2018 Intent OF BREAST (00060)By: Fast DO, Comments: october Karin A Fast DO, Karin A Radiology - Cervical SpineBy: On: 21-Jun-2018 Intent Fast DO, Karin A Fast DO, Karin A Ccmcgtghi-Olo-Lnwtz (56659)By: On: 21-Jun-2018 Intent Fast DO, Karin A Fast DO, Karin A Flu Vaccine (Quadrivalent) On: 18-May-2018 Intent 41383Ir: Visit, Nurse Nuclear Stress Test/Stress On: 14-Oct-2017 Intent SPECT/AdenosineBy: Fast DO, Karin A Fast DO, Karin A SCREENING DIGITAL TOMOSYNTHESIS On: 14-Oct-2017 Intent OF BREAST (68847)By: Fast DO, Karin A Fast DO, Karin A Ultrasound - ThyroidBy: Fast DO, On: 14-Oct-2017 Intent Karin A Fast DO, Karin A ELECTROCARDIOGRAM, COMPLETE (ECG) On: 14-Oct-2017 Intent (55963)By: Fast DO, Karin A Fast Comments: ekg [...] A ELECTROCARDIOGRAM, COMPLETE (ECG) On: 02-Feb-2017 Intent (39852)By: Fast DO, Karin A Colton Comments: ekg showed normal sinus rhythym, normal axis, no acute st/t wave changes DO, Karin A MRI OF RIGHT BREAST WITH AND On: 02-Nov-2016 Intent WITHOUT CONTRAST (C8905)By: Colton HARRIS, Karin A Fast DO, Karin A MAMMOGRAM BREAST BILATERAL On: 25-Oct-2016 Intent DIAGNOSTIC (16157)By: Colton HARRIS, Karin A Fast DO, Karin A Ultrasound - Breast - RightBy: On: 22-Oct-2016 Intent Fast DO, Karin A Fast DO, Karin A Comments: axilla Ultrasound - ThyroidBy: Colton HARRIS, On: 22-Oct-2016 Intent Karin A Fast DO, Karin A Radiology - Chest- PA and LatBy: On: 13-Sep-2016 Intent Keena Thomas DO Aerosol Treatment (11733)By: On: 13-Sep-2016 Intent Keena Thomas DO Comments: more a/e- chest less tight- gave rx for neb Flu Vaccine (Quadrivalent) On: 26-Apr-2016 Intent 28332Wm: Keena Thomas DO Comments: Lot:[id number]:02/04/17mt:0.5mlRoute:IMSite: L DltdGiven By: BUBBA Fernandez signed Radiology - Chest- PA and LatBy: On: 09-Dec-2015 Intent Fast DO Karin A Fast DO, Karin A Comments: stat Aerosol Treatment (36089)By: Colton On: 09-Dec-2015 Intent , Karin A Fast DO, Karin A Ultrasound - ThyroidBy: Colton HARRIS, On: 27-Oct-2015 Intent Karin A Fast DO, Karin A Flu Vaccine (Quadrivalent) On: 20-May-2015 Intent 72704Zw: Colton HARRIS, Karin A Fast Comments: Lot:[id number]:02/05/16Dose:0.5mLRoute:IMSite:L DltdGiven By:CLIFTON signed DO Karin A IMMUNIZ ADMNIN, 1 VAC, SNGL/COMBO On: 17-May-2014 Intent (68367)By: Karin Khanna DO A Colton Comments: lot:[id number]:02/04/2015dose:0.5mLRoute: IMlocation: L armgiven by: gayeith DO, Karin A FLU VAC, SPLIT, >3 YEARS, On: 17-May-2014 Intent INTRAMUSC (36834)By: Jessica Javier DEXA SCAN AXIAL SKELETON On: 29-Apr-2014 Intent (01265)By: Fast DO, Karin A Fast DO, Karin A CT - Abdomen & Pelvis (IV On: 01-Jan-2014 Intent Contrast Needed)By: Noe CM, Comments: assure check kidney stone and any other pathology Roseanne Mccarty Eprescribed prescriptions On: 01-Jan-2014 Intent (G8553)By: Roseanne Liu MD Ultrasound - RenalBy: [place] SPECIAL EDUCATION RESOURCE TEACHER, On: 24-Dec-2013 Intent Vanita Cutler Radiology - Lumbar SpineBy: Ciesa On: 24-Dec-2013 Intent BOB Vanita Cutler IMMUNIZ ADMNIN, 1 VAC, SNGL/COMBO On: 03-Dec-2013 Intent (36890)By: Visit, Nurse Comments: Lot: [id number]: [id number]: single unit dose vialRoute:SubcutaneouslySite: L deltoid regionGiven by: LIZANDRO Gonsaleseconstituted with Sterile Diluent Lot #[id number], exp. date , given within 10 minutes of reconstitution. ZOSTER VACC, IN (77086)By: Visit, On: 03-Dec-2013 Intent Nurse Ultrasound - ThyroidBy: Fast DO, On: 16-Oct-2013 Intent Karin A Fast DO, Karin A Comments: january EsophagramBy: Fast DO, Karin A On: 16-Oct-2013 Intent Fast DO, Karin A Comments: with 12 mm tablet Eprescribed prescriptions On: 16-Oct-2013 Intent (G8553)By: Fast DO, Karin A Fast DO, Karin A MAMMOGRAM, SCREENING, BOTH On: 16-May-2013 Intent BREASTS (00308)By: Fast DO, Karin A Fast DO, Karin A EsophagramBy: Fast DO, Karin A On: 16-May-2013 Intent Fast DO, Karin A Comments: with 12 mmm tablet FLU VAC, SPLIT, >3 YEARS, On: 16-May-2013 Intent INTRAMUSC (59293)By: Pedro, Comments: Lot #:[id number] date:mount given:0.5mlRoute: IMSite given: L dltdVIS and ABN signedGiven by: AMI Quiroga IMMUNIZ ADMNIN, 1 VAC, SNGL/COMBO On: 16-May-2013 Intent (68765)By: María Vasquez Eprescribed prescriptions On: 16-May-2013 Intent (G8553)By: María Vasquez Ultrasound - ThyroidBy: Ciesa On: 17-Jan-2013 Intent BOB Nesha Eprescribed prescriptions On: 17-Jan-2013 Intent (G8553)By: Magnolia Ricketts LPN Ear Irrigation (04417)By: Isaac On: 12-Jan-2013 Intent BOB Vanita Cutler Comments: IrrigationSite- R and L earAmount/Color/Quality - small amount of dark yellow/soft cerumen Toelrated well: yesCurette Used: noChelsea, PHOTOENGRAVER Wax CurettesBy: Ciesa BOB Nesha On: 12-Jan-2013 Intent Eprescribed prescriptions On: 12-Jan-2013 Intent (G8553)By: Leola Madsen Radiology - Foot - RightBy: Fast On: 14-Dec-2012 Intent DO, Karin A Fast DO, Karin A Radiology - Ankle - RightBy: Fast On: 14-Dec-2012 Intent DO, Karin A Fast DO, Karin A Radiology - ChestBy: Fast DO, On: 23-Oct-2012 Intent Karin A Fast DO, Karin A Comments: pa and lateral EKG (00655)By: María Vasquez On: 23-Oct-2012 Intent Comments: ekg [...] DO, Karin A TDAP VACCINE >7 IM (62740)By: On: 07-Apr-2012 Intent María Vasquez Comments: Lot #:[id number] date:mount given:0.5mlRoute: IMSite given:left deltoidGiven by: AMI Quiroga Eprescribed prescriptions On: 07-Apr-2012 Intent (G8553)By: Fast DO, Karin A Fast DO, Karin A PNEUM VAC ADLT/IMUMNOSPR, On: 07-Apr-2012 Intent SBC/INTRM (61533)By: Pedro, Comments: received in 2010 from [facility] [...] hyperlipidemia : DISCONTINUED - METABOLIC PANEL, COMPREHENSIVE (68158) Indication: Mixed hyperlipidemia Body mass index (BMI) [...] Non-smoker Non-smoker : Patient Instructions Indication: [facility] : How to access health information online Indication: [facility] Wellness Physical [facility] Wellness Physical : How to access health information online - Detail Indication: [facility] Wellness Physical [facility] Wellness Physical : [facility] Instructions [facility] Sore throat : How to [...] Instructions Indication: Anxiety Encounters Office Visit On: 25-Aug-2018 10:04 Encounter Reason: [...] some irritaiton-she has Sjrogens he thinks from thatEncounter Diagnosis: [facility] Wellness Physical, Non-smoker, Body mass [...] throat. Note for Earache: Pt went to [facility] on tuesday evening. They gave her amox 500mg tid and neomycin ear drops.- was thumping - last week and felt sick to her stomach- - took advil and that helped- but then came back and went to [facility]- they saw wax- tried [...] (it's getting better, is walking at the [employer] End: 31-Mar-2015 21:31 h is helping to [...] endo- she is doiing 7 [place] 45313 units a week- she had egd done [...] Pain: really pretty b ad tue- had paraguayan - beans and sauce- gets some pressure and bloating- so got stage builder appt too- bowels are regular- no blood- [...] one wants her to have estrogen- her stage builder of fered low dose prozac- she didnt do - paxil made her feel terrible- zoloft made her tired - never tried cymbalta ??and is willing - she sees Jasvir Cardoza for her ra and on orencia and doing well- and mauro s appt in march with Guera Clifford- at [facility]- no target organ damge and dx age 8 with dm- and ra was diagnosed 44Encounter Diagnosis: Arthritis, rheumatoid (714.0), Anxiety (300.00), Osteopenia (733.90), Hyperlipidemia, Mixed (272.2), Hypothyroidism (244.9), Diabetes, Type I, contolled (250.01), Menopause (627.2) [facility] Payers Sandy GRIDER/REDD HENNING; a guarantor
--- OUTSIDE RECORDS SUMMARY | 2018-10-30 02:14 | XMS RPT_ITS | Continuity of Care Document ---
:1960 Author Organization [facility] Address [address] [address] [place] [address] Phone Care Team Providers Name Role Phone [...] Comments: sees ENdocrinology - Dr [place] in [place] Status: Active Dysphagia, unspecified dysphagia (787.20) Status: [...] Exp-02/04/19Site-L dltd, IMDose prefilled syringegiven by: Arsenio PLULIAM.VIS reviewed and ABN signed Status: Active Neuropathy (G62.9, 355.9) Status: Active Night sweats (R61, 780.8) Comments: better Status: Active Nipple discharge (N64.52, 611.79) Status: Active Non-smoker (Z78.9, V49.89) Status: Active Open-angle glaucoma of both eyes, indeterminate stage, unspecified open-angle glaucoma type (H40.10X4, 365.10) Comments: 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 sees [facility] vision cliniic every 2months Status: [...] Active Pneumococcal vaccination given (Z23, V06.6) Comments: Lot:[id number]:04/26/18Dose:0.5mgRoute:imSite:herminia Estes By:CLIFTON signed Status: Active Post-nasal drip [...] Quantity: 30 {Tablet} Refills: 11 Ordered:14-Feb-2018 Colton HRARIS, Karin TSANGarpit , Karin A Start : [...] Status: Inactive as of 26-Apr-2016 Vaccine for ywnywzlegv-axsgqkq-cgoxxdnzb with poliomyelitis (Z23, V06.3) Status: Inactive as [...] PT (1) Result: Comments: See Note; NOTES: [facility] Physical Therapy [facility] [address] [place], [place] [address] Fax [facility] MR#: [id number] Acct: [id number] Name: CHELSEA HENNING Rep #: [id number] : 1960 57 From: Kiki Thomas DPT Referring Dr.: Karin Khanna DO Status: REG RCR Insurance: ANT [employer] S[employer] INSURANCE Karin Khanna DO, It has been my pleasure to treat CHELSEA HENNING over the last 8 visits for Cervical Radiculopathy. Please see the progress note below for an update on the [facility] therapy plan of care! Subjective: [...] in available range, elbow 4+/5, Wrist: 4+/5, Shot Examiner: diminshed but equal the other side. Reflex: [...] do not hesitate to contact me at [phone] by phone or if you have questions or concerns regarding this new plan of care! Sincerely, Kiki Thomas, DPT <Elec tronically signed by Kiki Thomas DPT> 07/28/18 1058 CC: Karin Khanna DO ELR Signed For Medicare only, by signing this I certify the plan of care. Physicians Signature Date 10-Jul-2018 Inital Evaluation (1) - PT Result: Comments: See Note; NOTES: [facility] Physical Therapy [facility] [address] [place] [address] Fax REHABILITATION SERVICES INITIAL EVALUATION MR#: [id number] Acct: [id number] Name: CHELSEA HENNING Rep #: [id number] [...] was okay again. Swathi who is a BLOCKER AND SEWER told her to hold off on the [...] in available range, elbow 4/5, Wrist: 4/5, Shot Examiner: diminshed but eq ual the other side. [...] to be FAXED BACK to us at [phone] for Medicare purposes. For Medicare only, by signing this I certify the plan of care. Please let me know if there are questions or concerns regarding this plan of care. Physician Signature: Date: <Electronica zach signed by Kiki Thomas DPT> 07/10/18 1051 CC: Karin Khanna DO ELR Signed 21-Jun-2018 Cerv Spine 4 or 5 Views Result: Comments: See Note; NOTES: [facility] Imaging Services [address] [place] [address] Cerv Spine 4 or 5 Views MR#: [id number] Acct: [id number] Name: CHELSEA HENNING Rep #: [id number] : 1960 F 57 From: Silvano Decker MD PCP: Karin Khanna DO Status: REG CLI Study: Cerv Spine 4 or 5 Views Date of Exam: 06/21/18 Exam# [id number] Ordering Dr: Karin Khanna DO STUDY: X-RAY [...] Service support , CC: Karin Khanna DO House Admin: Signed 21-Jun-2018 Ribs Uni Min 3V w/PA Chest Result: Comments: See Note; NOTES: [facility] Imaging Services [address] [place] [address] Ribs Uni Min 3V w/PA Chest MR#: [id number] Acct: [id number] Name: CHELSEA HENNING Rep #: [id number] : 1960 F 57 From: Silvano Decker MD PCP: Karin Khanna DO Status: REG CLI Study: Ribs Uni Min 3V w/PA Chest Date of Exam: 06/21/18 Exam# [id number] Ordering Dr: Karin Khanna DO STUDY: X-R [...] Silvano Decker, at 17:51 EST Tel [phone], Service support , CC: Karin Khanna DO House Admin: Signed 01-Nov-2017 SCREENING MAMM (CAD), BILAT Result: Comments: See Note; NOTES: [facility] Imaging Services [address] [place] [address] SCREENING MAMM (CAD), BILAT MR#: [id number] Acct: [id number] Name: CHELSEA HENNING Rep #: [id number] : 1960 F 56 From: Chris Bullock MD PCP: Karin Khanna DO Status: REG CLI Study: SCREENING MAMM (CAD), BILAT Date of Exam: 11/01/17 Exam# [id number] Ordering Dr: Karin Khanna DO MAMMOGRAPH Y [...] Service support , CC: Karin Khanna DO House Admin: Signed 01-Nov-2017 Thyroid Result: Comments: See Note; NOTES: [facility] Imaging Services [address] [place], [place] [address] [address] Thyroid MR#: [id number] Acct: [id number] Name: CHELSEA HENNING Rep #: [id number] : [birth year] F 56 From: Rajeev Farias DO PCP: Karin Khanna DO Status: REG CLI Study: Thyroid Date of Exam: 11/01/17 Exam# [id number] Ordering Dr: Karin Khanna DO STUDY: THYROID [...] Signed: Aaron Fraire at 16:25 EDT Tel [phone], Service support , CC: Karin Khanna DO House Admin: Signed 26-Oct-2017 Stress Report Result: Comments: See Note; NOTES: [facility] Cardiovascular Services [address] [place] [address] MR#: [id number] Acct: [id number] Name: JUVENCIOILAN THOMPSONMikey Cutler Rep #: [id number] : 1960 56 From: Romel Martinez MD [...] DO Date Dictated: 10/26/17913 Date Transcribed: 10/26/17913 House Admin: CO Signed 08-Apr-2017 Foot min 3 Views Result: Comments: See Note; NOTES: [facility] Imaging Services [address] [place] [address] Foot min 3 Views MR#: [id number] Acct: [id number] Name: CHELSEA HENNING Rep #: [id number] : 1960 F 56 From: Rajiv Shanks MD PCP: Karin Khanna DO Status: REG CLI Study: Foot min 3 Views Date of Exam: 04/08/17 Exam# [id number] Ordering Dr: Karin Khanna DO STUDY: X-RAY [...] support , Fax CC: Karin Khanna DO House Admin: Signed 02-Mar-2017 Thoracic Spine 3 Views Result: Comments: See Note; NOTES: [facility] Imaging Services [address] [place] [address] Verdana 4d Thoracic Spine 3 Views MR#: [id number] Acct: [id number] Name: CHELSEA HENNING Rep #: [id number] : 1960 F 56 From: Yoan Gray MD PCP: Karin Khanna DO Status: REG CLI Study: Thoracic Spine 3 Views Date of Exam: 03/02/17 Exam# [id number] Ordering Dr: Karin Khanna DO STUDY : [...] Service support , CC: Karin Khanna DO House Admin: Signed 23-Feb-2017 NCS and/or EMG Patient Result: Comments: See Note; NOTES: [facility] Pulmonary Services/Neurology [address] [place] [address] MR#: [id number] Acct: [id number] Name: CHELSEA HENNING Rep #: [id number] : 04/1961 56 From: Radha Hoover MD Referring Dr: Dione Guerra BLOCKER AND SEWER-C Status: REG CLI Ordering Dr: Date: Location: [facility] Sex: F C NCS and/or EMG [...] DO Date Dictated: 02/23/1734 Date Transcribed: 02/23/17833 House Admin: AA Signed 03-Feb-2017 Abdomen Limited Result: Comments: See Note; NOTES: [facility] Imaging Services [address] [place] [address] Verdana 4d Abdomen Limited MR#: [id number] Acct: [id number] Name: JUVENCIOCHELSEA Rep #: [id number] : 1960 F 56 From: Salvador Pike MD PCP: Karin Khanna DO Status: REG CLI Study: Abdomen Limited Date of Exam: 02/03/17 Exam# [id number] Ordering Dr: Karin hKanna DO STUDY: ABDOMINAL U LTRASOUND - RIGHT [...] Salvador Pike MD at 14:21 EDT Tel [phone], Service support , CC: Karin Khanna DO House Admin: Signed 10-Nov-2016 Breast w/o and/or W Cont Bilat Result: Comments: See Note; NOTES: [facility] Imaging Services [address] [place] [address] Verdana 4d Breast w/o and/or W Cont Bilat MR#: [id number] Acct: [id number] Name: CATHERINE HENNING E Rep #: [id number] : 1960 F 55 From: Terrell Schroeder MD PCP: Karin Khanna DO Status: REG CLI Study: Breast w/o and/or W Cont Bilat Date of Exam: 11/10/16 Exam# [id number] Ordering Dr: Karin Khanna DO STUDY: BILATERAL [...] MD at 16:15 EDT , Service support [phone], CC: Karin Khanna DO House Admin: Signed 29-Oct-2016 Breast Limited Unilateral Result: Comments: See Note; NOTES: [facility] Imaging Services [address] [place] [address] Verdana 4d Breast Limited Unilateral MR#: [id number] Acct: [id number] Name: CHELSEA HENNING Rep #: [id number] : 1960 F 55 From: Salvador Pike MD PCP: Keena Thomas DO Status: REG CLI Study: Breast Limited Unilateral Date of Exam: 10/29/16 Exam# [id number] Ordering Dr: Zak Khanna DO STUDY: ULTRASOUND [...] Pike MD 2 at 15:27 EDT Tel [phone], Service support [phone], CC: Karin Khanna DO; Keena Thomas DO House Admin: Signed 29-Oct-2016 DIAG MAMM W/CAD, BILAT Result: Comments: See Note; NOTES: [facility] Imaging Services [address] [place] [address] Verdana 4d DIAG MAMM W/CAD, BILAT MR#: [id number] Acct: [id number] Name: CHELSEA HENNING Rep #: [id number] : 1960 F 55 From: Salvador Pike MD PCP: Keena Thomas DO Status: REG CLI Study: DIAG MAMM W/CAD, BILAT Date of Exam: 10/29/16 Exam# [id number] Ordering Dr: Karin Khanna DO MAMMOGRAPHY - [...] Helio Pike MD at 14:53 EDT Tel [phone], Service support [phone], CC: Karin Khanna DO; Keena Thomas DO House Admin: Signed 26-Oct-2016 Thyroid Result: Comments: See Note; NOTES: [facility] Imaging Services [address] [place] [address] Verdana 4d Thyroid MR#: [id number] Acct: [id number] Name: CHELSEA HENNING He Rep #: [id number] D OB: 1960 F 55 From: Windy Hill MD PCP: Karin Khanna DO Status: REG CLI Study: Thyroid Date of Exam: 10/26/16 Exam# [id number] Ordering Dr: Karin Khanna DO STUDY: THYROID [...] upper pole nodule not substantially changed on qnfv-il-unbo comparison from November 23, 2013. 5 x 4 x 3 mm solid upper pole nodule of the left thyroid not substantially changed on xaqf-nz-waod comparison from November 23, 2013. Electronically Signed: Windy Hill MD at 15:40 EDT , Service support , CC: Karin Khanna DO House Admin: Signed 30-Sep-2016 Dexa Bone Density Study (HP) Result: Comments: See Note; NOTES: [facility] Imaging Services [address] [place] [address] Verdana 4d Dexa Bone Density Study (HP) MR#: [id number] Acct: [id number] Name: CHELSEA HENNING Rep #: [id number] : 1960 F 55 From: Salvador Pike MD PCP: Keena Thomas DO Status: REG CLI Study: Dexa Bone Density Study (HP) Date of Exam: 09/30/16 Exam# [id number] Ordering Dr: Linnea Ricardo Out o. STUDY: [...] Salvador Pike MD at 13:49 EST Tel [phone], Service support [phone], Fax CC: Dione Guerra; Keena Thomas DO; OUT OF TOWN DOCTOR House Admin: Signed 16-Sep-2016 Emergency Department Summary Result: Comments: See Note; NOTES: [facility] Medical Records Department [address] [place] [address] Emergency Department Summary MR#: [id number] Acct: [id number] Name: CHELSEA HENNING Rep #: [id number] : 1960 55 From: Billy Varela DO [...] plaster, AP splint and she was given [place]. Follow up will be with orthopedics. CLINICAL IMPRESSION: 1. Right distal radius fracture. 2. Splint by physician. Billy Varela DO T: NTS JOB: [id number] 09/16/16 2335 <Electronically signed by Billy Varela DO> Date Billy Varela DO Cosigner Signature (If Indicated): Date CC: Keena Thomas DO Date Dictated: 09/16/161905 Date Transcribed: 09/16/161905 House Admin: Signed 16-Sep-2016 Discharge Instruction Result: Comments: See Note; NOTES: [facility] Medical Records Department [address] [place] [address] Discharge Instruction 09/16/161909 MR#: [id number] Acct: [id number] Name: CHELSEA HENNING Rep #: [id number] : 1960 55 From: Billy Varela DO [...] your Primary Care Provider. Call Doctors Registry ([phone]) or report to the closest Emergency Room. Call 911 if necessary. 09/16/16 191 & amp;#60;Electronically signed by Billy Varela DO> Date Billy Varela DO Cosigner Signature (If Indicated): Date CC: Keena Thomas DO 16-Sep-2016 Discharge Instruction Result: Comments: See Note; NOTES: [facility] Medical Records Department [address] [place] [address] Discharge Instruction 09/16/16 190 MR#: [id number] Acct: [id number] Name: CHELSEA HENNING Rep #: [id number] : 1960 55 From: Billy Varlea DO PCP: Keena Thomas DO Status: PRE ER ED Disposition - Plan for ED Patient: Disposition: Home or Assisted Living Chief Complaint: U pper Extremity Injury Instructions: ED Fx Wrist General Prescriptions: Hydrocodone Bitart/Apap 5-325 [[place] 5/325] 1 - 2 tablet PO Q4H [...] your Primary Care Provider. Call Doctors [facility] ([phone]) or report to the closest Emergency Room. Call [phone] if necessary. 09/16/16 190 <Electronically signed by Billy Varela DO> Date Billy Varela DO Cosigner Signature (If Indicated): Date CC: Keena Thomas DO 16-Sep-2016 Wrist min 3 Views Result: Comments: See Note; NOTES: [facility] Imaging Services [address] [place] [address] Verdana 4d Wrist min 3 Views MR#: [id number] Acct: [id number] Name: CHELSEA HENNING Rep #: [id number] : 1960 F 55 From: Renato Maria MD PCP: Keena Thomas DO Status: REG ER Study: Wrist min 3 Views Date of Exam: 09/16/16 Exam# [id number] Ordering Dr: Billy Varela DO STUDY: X-RA [...] MD at 19:21 EST , Service support [phone], CC: Billy Varela DO; Keena Thomas DO House Admin: Signed 13-Sep-2016 Chest PA and Lateral Result: Comments: See Note; NOTES: [facility] Imaging Services [address] [place] [address] Verdana 4d Chest PA and Lateral MR#: [id number] Acct: [id number] Name: CHELSEA HENNING Rep # : [id number] : 1960 F 55 From: Salvador Pike MD PCP: Keena Thomas DO Status: REG CLI Study: Chest PA and Lateral Date of Exam: 09/13/16 Exam# [id number] Ordering Dr: Keena Thomas DO STUDY: X-RAY [...] Salvador Pike MD at 11:36 EST Tel [phone], Service support [phone], CC: Keena Thomas DO House Admin: Signed 29-Mar-2016 Discharge Instruction Result: Comments: See Note; NOTES: [facility] Medical Records Department [address] [place] [address] Discharge Instruction 03/27/16 1521 MR#: [id number] Acct: [id number] Name: CHELSEA HENNING Rep #: [id number] : 1960 55 From: Marques Hutchison MD [...] or any unexpected problems, contact your doctor. [facility] Doctors Registry ([phone]) or report to the closest Emergency Room. Call 911 if necessary. 03/29/16 0715 <Electronically signed by Marques Hutchison MD> Date Marques Hutchison MD Cosigner Signature (If Indicated): Date CC: Keena Thomas DO 29-Mar-2016 Emergency Department Summary Result: Comments: See Note; NOTES: [facility] Medical Records Department [address] [place] [address] Emergency Department Summary MR#: [id number] Acct: [id number] Name: CHELSEA HENNING Rep #: [id number] : 1960 55 From: Marques Hutchison MD [...] fall. DISPOSITION: Discharge. Marques Hutchison MD T: [facility] JOB: [id number] 03/29/16 0715 <Electronically signed by Marques Hutchison MD> Date Marques Hutchison MD Cosigner Signature (If Indicated): Date CC: Keena Thomas DO Date Dictated: 03/09 1524 Date Transcribed: 03/27/16 152 House Admin: Signed 27-Mar-2016 Sinus/Facial Bone Result: Comments: See Note; NOTES: [facility] Imaging Services [address] [place] [address] Verdana 4d Sinus/Facial Bone MR#: [id number] Acct: [id number] Name: CHELSEA HENNING Rep #: [id number] : 1960 F 55 From: Manolo Rodriguez MD PCP: Keena Thomas DO Status: REG ER Study: Sinus/Facial Bone Date of Exam: 03/27/16 Exam# [id number] Ordering Dr: Marques Hutchison MD STUDY: CT [...] at 15:14 EDT Tel , Service support [phone], CC: Keena Thomas DO; Marques Hutchison MD House Admin: Signed 27-Mar-2016 Wrist min 3 Views Result: Comments: See Note; NOTES: [facility] Imaging Services [address] [place] [address] Verdana 4d Wrist min 3 Views MR#: [id number] Acct: [id number] Name: CHELSEA HENNING Rep #: [id number] : 1960 F 55 From: Manolo Rodriguez MD PCP: Keena Thomas DO Status: REG ER Study: Wrist min 3 Views Date of Exam: 03/27/16 Exam# [id number] Ordering Dr: Marques Hutchison MD STUDY: X-R [...] at 15:15 EDT Tel , Service support [phone], Fax CC: Keena Thomas DO; Marques Hutchison MD House Admin: Signed 09-Dec-2015 Chest PA and Lateral Result: Comments: See Note; NOTES: [facility] Imaging Services [address] [place] [address] Verda 4d Chest PA and Lateral MR#: [id number] Acct: [id number] Name: CHELSEA HENNING Rep #: [id number] : 1960 F 55 From: Halima Hook MD PCP: Karin Khanna DO Status: REG CLI Study: Chest PA and Lateral Date of Exam: 12/09/15 Exam# [id number] Ordering Dr: Karin Khanna O STUDY: X-RAY [...] at 11:50 EDT Tel , Service support [phone], RAD/Chest PA and Lateral IMPRESSION: There is no acute chest disease. Electronically Signed: Halima Hook MD at 11:50 EDT Tel , Service support [phone], CC: Karin Khanna DO House Admin: Signed 05-Mar-2015 Upper Ext Joint Only W/WO Cont Result: Comments: See Note; NOTES: [facility] Imaging Services [address] [place] [address] MRI Report MR#: [id number] Acct: [id number] Name: JUVENCIOILAN THOMPSONMikey Cutler Rep #: [id number] D OB: 1960 F 54 From: Manolo James MD PCP: Karin Khanna DO Status: REG CLI Study: Upper Ext Joint Only W/WO Cont Date of Exam: 03/05/15 Exam# [id number] Ordering Dr: Lashonda Butler STUDY: MRI LE [...] at 11:09 EDT Tel , Service support [phone], CC: LASHONDA BUTLER; Venus Khanna DO House Admin: Signed 05-Feb-2015 OT Discharge Summary Result: Comments: See Note; NOTES: [facility] Occupational Therapy [facility] [address] [place] [address]. [address] [place] [address] Fax REHABILITATION SERV ICES DISCHARGE SUMMARY MR#: [id number] Acct: [id number] Name: CHELSEA HENNING Rep #: [id number] : 1960 54 From: Citlaly Moctezuma Referring [...] elbow and soreness in left wrist, decreased fire control mechanic and pinch strength in left hand, decreased [...] degrees, left elbow flexion 135 degrees, left fire control mechanic st rength 45 pounds. Chelsea has currently plateaued Her strength has greatly improved and she is using the static progressive brace consistently at home. The plan is to have her keep using the brace until so she no longer feels a stretch. Therefore, she will be discharged from occupational therapy. Citlaly Moctezuma OTR/L T: SHAE JOB: [id number] <Electronically signed by Citlaly Merino cki > 02/05/15 1304 CC: Signed 29-Nov-2014 Lumbar Spine 2 or 3 Views Result: Comments: See Note; NOTES: [facility] Imaging Services [address] [place] [address] Radiology Report MR#: [id number] Acct: [id number] Name: CHELSEA HENNING Rep #: [id number] : 1960 F 54 From: Renato Maria MD PCP: Karin Khanna DO Status: REG CLI Study: Lumbar Spine 2 or 3 Views Date of Exam: 11/29/14 Exam# [id number] Ordering Dr: JASVIR CARDOZA STUDY: X-RAY - [...] MD at 10:23 EDT , Service support [phone], CC: Karin Khanna DO; JASVIR CARDOZA House Admin: Signed 04-Sep-2014 Dexa Bone Density Study (HP) Result: Comments: See Note; NOTES: [facility] Imaging Services [address] [place] [address] Bone Density Report MR#: [id number] Acct: [id number] Name: CHELSEA HENNING Rep #: [id number] : 1960 F 53 From: Salvador Pike MD PCP: Karin Khanna DO Status: REG CLI Study: Dexa Bone Density Study (HP) Date of Exam: 09/04/14 Exam# [id number] Ordering Dr: Karin Khanna DO STUDY: DUAL [...] Salvador Pike MD at 12:33 EST Tel [phone], Service support [phone], CC: Karin Khanna DO House Admin: Signed 04-Sep-2014 Dexa Bone Density Study (HP) Result: Comments: See Note; NOTES: [facility] Imaging Services [address] [place] [address] Bone Density Report MR#: [id number] Acct: [id number] Name: CHELSEA HENNING Rep #: [id number] : 1960 F 53 From: Salvador Pike MD PCP: Karin Khanna DO Status: REG CLI Study: Dexa Bone Density Study (HP) Date of Exam: 09/04/14 Exam# [id number] Ordering Dr: Karin Khanna DO ADDENDUM by Salvador Pike MD on 09/10/14 at 1026 ADDENDUM This is an addendum report Com parison is made with prior outside examination dated February 04, 2012. Since prior examination, there has been a decrease in the bone density of the proximal left femur of 7.9%. Electronically Signed: Salvador Pike MD at 10:26 EST Tel [phone], Service support [phone], 09/10/14 1026 Date cc: Karin Khanna DO [...] Salvador Pike MD at 12:33 EST Tel [phone], Service support [phone], CC: Karin Khanna DO House Admin: Signed 16-Jul-2014 Initial Evaluation - OT Result: Comments: See Note; NOTES: [facility] Occupational Therapy [address] [place], [place] [address] Fax REHABILITATION SERVI [facility] INITIAL EVALUATION MR#: [id number] Acct: [id number] Name: CHELSEA HENNING Rep #: [id number] : 1960 53 From: Citlaly Moctezuma Referring [...] visits. 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 At the time of [...] and thumb movements were within functional limits. Shot Examiner strength in right hand was 50 degrees [...] w and soreness in left wrist, decreased fire control mechanic and pinch strength in left hand, decreased [...] by discharge. 2. 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 3. [...] motion. Citlaly Moctezuma, OTR/L T: NTS JOB: [id number] <Electronically signed by Citlaly Moctezuma > 1 09/16/13 0852 CC: Signed For Medicare only, by signing this I certify the plan of care. Physicians Signature Date 01-Jan-2014 Abdomen/Pelvis without Cont Result: Comments: See Note; NOTES: [facility] Imaging Services [facility] [place] [address] CAT Scan Report MR#: [id number] Acct: [id number] Name: CHELSEA HENNING Rep #: [id number] : 1960 F 53 From: Sid Conklin MD PCP: Karin Khanna DO Status: REG CLI Study: Abdomen/Pelvis without Cont Date of Exam: 01/01/14 Exam# [id number] Ordering Dr: Roseanne Liu MD STUDY : [...] at 16:49 EDT Tel , Service support [phone], CC: Roseanne Liu MD; Karin Khanna DO House Admin: Signed 27-Dec-2013 Kidney and Bladder Result: Comments: See Note; NOTES: [facility] Imaging Services [address] [place] [address] Ultrasound Report MR#: [id number] Acct: [id number] Name: CHELSEA HENNING Rep #: [id number] : 1960 F 53 From: Rajeev Farias DO PCP: Karin Khanna DO Status: REG CLI Study: Kidney and Bladder Date of Exam: 12/27/13 Exam# [id number] Ordering Dr: Karin Khanna DO STUDY: RENAL [...] Brown DO chito at 19:47 EDT Tel [phone], Service support [phone], CC: Karin Khanna DO House Admin: Signed 27-Dec-2013 L/S Spine Min 4 Views Result: Comments: See Note; NOTES: [facility] Imaging Services [address] [place] [address] Radiology Report MR#: [id number] Acct: [id number] Name: CHELSEA HENNING Rep #: [id number] : 1960 F 53 From: Rajeev Barryon PCP: Karin Khanna DO Status: REG CLI Study: L/S Spine Min 4 Views Date of Exam: 12/27/13 Exam# [id number] Ordering Dr: Karin Khanna DO STUDY: X-RAY [...] Farias DO at 20 :52 EDT Tel [phone], Service support [phone], CC: Karin Khanna DO House Admin: Signed 23-Nov-2013 Esophagus Only Result: Comments: See Note; NOTES: [facility] Imaging Services [address] [place] [address] Radiology Report MR#: [id number] Acct: [id number] Name: CHELSEA HENNING Rep #: [id number] : 1960 F 53 From: Salvador Pike MD PCP: Karin Khanna DO Status: REG CLI Study: Esophagus Only Date of Exam: 11/23/13 Exam# [id number] Ordering Dr: Karin Khanna DO STUDY: X-RAY [...] the gastroesophag eal CC: Karin Khanna DO House Admin: Signed 23-Nov-2013 Thyroid Result: Comments: See Note; NOTES: [facility] Imaging Services [address] [place] [address] Ultrasound Report MR#: [id number] Acct: [id number] Name: CHELSEA HENNING Rep #: [id number] : 1960 F 53 From: Salvador Pike MD PCP: Karin Khanna DO Status: REG CLI Study: Thyroid Date of Exam: 11/23/13 Exam# [id number] Ordering Dr: Karin Khanna DO STUDY: THYROID [...] Salvador Pike MD at 12:56 EDT Tel [phone], Service support [phone], CC: Karin Khanna DO House Admin: Signed Family History Unknown Family Member Name [...] 1.63 m2 Results Date Description Value Details 97-Xne-638198:04 RHEUMATOID FACTOR-QUANT Comments: PATIENT NOT FASTINGPERFORMED BY: [address] [id number] BY: [address] [id number] (84744) RA Latex Turbid. 19.3 {IU/mL} (Abnormal) Range: 0.0-13.9 93-Dks-212928:04 CCP ANTIBODY (87241) Comments: PATIENT NOT FASTINGPERFORMED BY: [address] [id number] BY: [address] [id number] CCP Antibodies IgG/IgA >250 {units} (Abnormal) Range: 0-19 Comments: Negative <20 Weak positive 20 - 39 Moderate positive 40 - 59 Strong positive >59 95-Grg-476089:04 C-REACTIVE PROTEIN Comments: PATIENT NOT FASTINGPERFORMED BY: [address] [id number] BY: [address] [id number] (95059) C-Reactive Protein, Quant 4.1 mg/L (Normal) Range: 0.0-4.9 02-Enl-172533:04 SED RATE ERYTHROCYTE Comments: PATIENT NOT FASTINGPERFORMED BY: [address] [id number] BY: [address] [id number] (43078) Sedimentation Rate-Westergren 2 mm/h (Normal) Range: 0-40 93-Bxn-414056:14 Alanine Aminotransferas (SGPT) Comments: [facility] Qjxsvfhfaf4[address] [place], [place], [address] ALT 26 U/L (Normal) Range: 13-56 33-Rzo-764831:14 AST(SGOT) Comments: [facility] Igbzyowion60[address] [place], [address] AST 20 U/L (Normal) Range: 15-37 62-Hko-682815:14 Basic Metabolic Profile (BMP) Comments: [facility] [address]dcgf[address]igcc[address] [place], [address] GAP 7 (Normal) Range: 5-15 CO2 31.0 [...] A.D.A. criteria.Please note revised GLUCOSE reference range dkzvndnbe06/02/2018. 81-Qgm-457881:14 Hemoglobin A1c Comments: [facility] Lmrwxaspzf9906 [address] [place], [place], [address] HGB A1C 6.6 % (Abnormal) Range: 4.2-6.3 77-Nbk-863254:14 Lipid Profile Comments: [facility] Lhssjkvuae8545 [place], [address] VLDL 7 mg/dL (Normal) Range: 5-40 LDL [...] 200-240 mg/dL Borderline >240 mg/dL High Risk 99-Cpj-258434:14 T4 Free Direct Comments: [facility] Jnuvtdtxkl64[address] [place], [address] T4 FREE DIRECT 1.20 ng/dL (Normal) Range: 0.76-1.46 51-Czb-457784:14 Thyroid Stim Hormone (TSH) Comments: [facility] Vjvzaywwxd0897 [address] [place], [address] TSH 1.94 {uIU/mL} (Normal) Range: 0.358-3.74 59-Ocr-448163:14 Vitamin B12 1757 pg/mL (Abnormal) Comments: [facility] Ocleuqjwoa5[address] [place], [address] Range: 211-911 39-Dnm-835261:14 Vitamin D,25 Hydroxy Comments: [facility] Tacfdoomuo6517 [address] [place], [address] Vitamin D 25-OH 63.2 ng/mL (Normal) Range: 29.95-100.01 Comments: Vitamin D 25(OH) Status Range Deficiency <20 ng/mL (50nmol/L) Insuffciency 20 - 30 ng/mL (50 - 75 nmol/L) Sufficiency 30 - 100 ng/mL (75 - 250 nmol/L) Toxicity >100 ng/mL (>250 nmol/L) :43 Alanine Aminotransferas (SGPT) Comments: [facility] Joykmvdyjf8520 [address] [place], [address] ALT 33 U/L (Normal) Range: 13-56 :43 AST(SGOT) Comments: [facility] Thiynbtjem5480 [address] [place], [address] AST 22 U/L (Normal) Range: 15-37 :43 Basic Metabolic Profile (BMP) Comments: [facility] Dajprakjyx4565[address] [place], [address] GAP 7 (Normal) Range: 5-15 CO2 32.0 [...] suggests HYPOGLYCEMIA.Please note revised GLUCOSE reference range ycumuiklm26/02/2018. :43 Hemoglobin A1c Comments: [facility] Xyvtkdiphi1902 [address] [place], [address] HGB A1C 6.8 % (Abnormal) Range: 4.2-6.3 :43 Lipid Profile Comments: [facility] Dpvuktnwsy8615 [address] [place], [address] VLDL 7 mg/dL (Normal) Range: 5-40 LDL [...] High Risk :43 T4 Free Direct Comments: [facility] Wzehrupspt[address] [place], [address] T4 FREE DIRECT 1.25 ng/dL (Normal) Range: 0.76-1.46 :43 Thyroid Stim Hormone (TSH) Comments: [facility] Vdmvahnylb0108 [address] [place], [address] TSH 2.08 {uIU/mL} (Normal) Range: 0.358-3.74 :43 Vitamin B12 1996 pg/mL (Abnormal) Comments: [facility] Sdhhsdbary2439 [address] [place], 140361 Range: 211-911 :43 Vitamin D,25 Hydroxy Comments: [facility] Numgygvtlc0174 [facility] [address] [place], [address] Vitamin D 25-OH 66.0 ng/mL (Normal) Range: 29.95-100.01 Comments: Vitamin D 25(OH) Status Range Deficiency <20 ng/mL (50nmol/L) Insuffciency 20 - 30 ng/mL (50 - 75 nmol/L) Sufficiency 30 - 100 ng/mL (75 - 250 nmol/L) Toxicity >100 ng/mL (>250 nmol/L) 96-Guy-757530:42 TSH (14115) Comments: PATIENT NOT FASTINGPERFORMED BY: [place] [id number] TSH 1.190 {uIU/mL} (Normal) Range: 0.450-4.500 66-Fee-484807:42 T3, FREE (TRIDOTHYRONINE) (21829) Comments: PATIENT NOT FASTINGPERFORMED BY: [place] [id number] Triiodothyronine (T3), Free 2.1 pg/mL (Normal) Range: 2.0-4.4 36-Ksw-157838:42 T4, FREE (THYROXINE) (99680) Comments: PATIENT NOT FASTINGPERFORMED BY: DARREN [facility] Txawuq7707 [facility] [id number] T4,Free(Direct) 1.68 ng/dL (Normal) Range: 0.82-1.77 :38 Alanine Aminotransferas (SGPT) Comments: [facility] [address] [place], [place], [address](228) ALT 26 U/L (Normal) Range: 13-56 :38 AST(SGOT) Comments: [facility] Sn[address] [place], [place], [address]18758(274) AST 23 U/L (Normal) Range: 15-37 :38 Basic Metabolic Profile (BMP) Comments: [facility] [address] [place], [place], [address] GAP 7 (Normal) Range: 5-15 CO2 29.0 [...] A.D.A. criteria.Please note revised GLUCOSE reference range onxokgiqh15/02/2018. :38 Hemoglobin A1c Comments: [facility] [address] [place], [address] HGB A1C 7.1 % (Abnormal) Range: 4.2-6.3 :38 Lipid Profile Comments: [facility] N[address]ju[address] [place], [address] VLDL 5 mg/dL (Normal) Range: 5-40 LDL [...] High Risk :38 T4 Free Direct Comments: [facility] Brubecutqg[address] [place], [address] T4 FREE DIRECT 1.58 ng/dL (Abnormal) Range: 0.76-1.46 22-Vja-39919:38 Thyroid Stim Hormone (TSH) Comments: [facility] K[address] [place], [address] TSH 0.73 {uIU/mL} (Normal) Range: 0.358-3.74 14-Iue-910541:27 Alanine Aminotransferas (SGPT) Comments: [facility] H[address]uc[address] [place], [address] ALT 27 U/L (Normal) Range: 12-78 05-Hil-873333:27 AST(SGOT) Comments: [facility] Nogskbpmel6215 [place], [address] AST 19 U/L (Normal) Range: 15-37 47-Yjk-351423:27 Basic Metabolic Profile (BMP) Comments: [facility] Gpgiojddax7503 [address] [place], [address] GAP 7 (Normal) Range: 5-15 CO2 29.0 [...] 7-18 GLU 79 mg/dL (Normal) Range: 70-110 84-Heu-850543:27 Hemoglobin A1c Comments: [facility] Tfpmipbfii8036 [address] [place], [address] HGB A1C 6.8 % (Abnormal) Range: 4.2-6.3 43-Xdg-697521:27 Lipid Profile Comments: [facility] Bpjhwimntf2257 [address] [place], [address]44[address] VLDL 6 mg/dL (Normal) Range: 5-40 LDL [...] 200-240 mg/dL Borderline >240 mg/dL High Risk 44-Gfm-480778:27 Microalb:Creat Ratio,Random UR Comments: [facility] Quyrukixae75[address] [place], [address] MALB:CREAT 8.2 {mg/g_CRE} (Normal) MICROALBUMIN,UR 11.5 mg/L (Normal) UR CREAT 140.00 mg/dL (Normal) 31-Bsr-890248:27 T4 Free Direct Comments: [facility] Ofdjmyccuo8305 [address] [place], [address] T4 FREE DIRECT 1.20 ng/dL (Normal) Range: 0.76-1.46 16-Gdg-136024:27 Thyroid Stim Hormone (TSH) Comments: [facility] Kqmtntqvdr[address] [place], [address] TSH 4.21 {uIU/mL} (Abnormal) Range: 0.358-3.74 44-Pbi-382619:27 Vitamin B12 763 pg/mL (Normal) Comments: [address] [place], [address] Range: 211-911 36-Vpj-178823:27 Vitamin D,25 Hydroxy Comments: [facility] Talmfrzinc8362 [address] [place], [address] Vitamin D 25-OH 59.2 ng/mL (Normal) Comments: Vitamin D 25(OH) Status Range Deficiency <20 ng/mL (50nmol/L) Insuffciency 20 - 30 ng/mL (50 - 75 nmol/L) Sufficiency 30 - 100 ng/mL (75 - 250 nmol/L) Toxicity >100 ng/mL (>250 nmol/L) 63-Iuf-542615:19 CRP Comments: [address] [place], [address] C-REACTIVE PROT < 2.90 mg/L (Normal) Range: 0.0-3.0 Comments: C-Reactive Protein (CRP) provides useful information for thediagnosis, therapy and monitoring of inflammatory processesand associated diseases. For the evaluation of Relative Riskfor Cardiovascular Dise ase, a High Sensitivity CRP (HSCRP)should be ordered. :14 CBC W/Diff, Automated Comments: [facility] M[address]qfsxxhlz[address] [place], [place], [address] Absolute Lymph 1.38 {X10_3/ul} (Normal) Range: 0.83-4.51 [...] Range: 4.4-11.0 :14 Comprehensive Metabolic Profil Comments: [facility] Aixvtsjgeg[address] [place], [place], [address] GAP 8 (Normal) Range: 5-15 CO2 30.0 [...] 200 mg/dLsuggests DIABETES MELLITUS per A.D.A. criteria. 92-Ftw-413753:14 Erythrocyte Sed Rate Comments: [facility] Ferrkrridu[address] [place], [place], [address] SED RATE 2 mm/h (Normal) Range: 0-30 0-Bhm-541107:39 Alanine Aminotransferas (SGPT) Comments: [facility] Qtkaqubnjw6971 [address] [place], 357[address] ALT 24 U/L (Normal) Range: 12-78 3-Fxi-628019:39 AST(SGOT) Comments: [facility] Jtlxukklea9347 [address] [place], [address]6318691 AST 23 U/L (Normal) Range: 15-37 0-Rbw-148817:39 Basic Metabolic Profile (BMP) Comments: [address] [place], [address] GAP 6 (Normal) Range: 5-15 CO2 31.0 [...] 126 mg/dLsuggests DIABETES MELLITUS per A.D.A. criteria. 5-Kfq-670734:39 Hemoglobin A1c Comments: [facility] Dupyfbxdyj264[address] [place], [address] HGB A1C 6.5 % (Abnormal) Range: 4.2-6.3 5-Yto-962406:39 Lipid Profile Comments: [address] [place], [address] VLDL 6 mg/dL (Normal) Range: 5-40 LDL [...] 200-240 mg/dL Borderline >240 mg/dL High Risk 7-Tqs-769349:39 T4 Free Direct Comments: [facility] Osvkeecipq6042 [address] [place], [place], [address] T4 FREE DIRECT 1.36 ng/dL (Normal) Range: 0.76-1.46 7-Xxg-097154:39 Thyroid Stim Hormone (TSH) Comments: [address] [place], [place], [address] TSH 3.60 {uIU/mL} (Normal) Range: 0.358-3.74 5-Rer-479825:39 Vitamin B12 497 pg/mL (Normal) Comments: [address] [place], [address] Range: 211-911 7-Zos-516671:39 Vitamin D,25 Hydroxy Comments: [address] [place], [place], [address] Vitamin D 25-OH 58.6 ng/mL (Normal) Comments: Vitamin D 25(OH) Status Range Deficiency <20 ng/mL (50nmol/L) Insuffciency 20 - 30 ng/mL (50 - 75 nmol/L) Sufficiency 30 - 100 ng/mL (75 - 250 nmol/L) Toxicity >100 ng/mL (>250 nmol/L) 08-Apr-20178:42 Microscopic Examination Comments: PATIENT NOT FASTINGPERFORMED BY: [facility] Zbqyqr0898 [facility] RoadDuCarePartners Rehabilitation Hospital [id number] Bacteria None seen (Normal) Mucus Threads Present (Normal) Crystal Type Calcium Oxalate (Normal) Crystals Present (Abnormal) Epithelial Cells (non renal) 0-10 {/hpf} (Normal) Range: 0 - 10 RBC 0-2 {/hpf} (Normal) Range: 0 - 2 WBC 0-5 {/hpf} (Normal) Range: 0 - 5 :42 T3, FREE (TRIDOTHYRONINE) (94317) Comments: PATIENT NOT FASTINGPERFORMED BY: [facility] Ezayfe3656 3D RoboticsCarePart[facility] Hospital [id number] Triiodothyronine,Free,Serum 2.4 pg/mL (Normal) Range: 2.0-4.4 :42 T4, FREE (THYROXINE) (68785) Comments: PATIENT NOT FASTINGPERFORMED BY: [facility] Hthrja1315 3D RoboticsCarePart[facility] Rehabilitation Hospital [id number] T4,Free(Direct) 1.70 ng/dL (Normal) Range: 0.82-1.77 :42 URINE VEE CULTURE-IDENTIFICATN Comments: PATIENT NOT FASTINGPERFORMED BY: [facility]ool Ibtpwu4850 3D [facility]oticsCarePart[facility] Hospital [id number] (98447) Result 1 PSMS (Abnormal) Comments: Pseudomonas kqhshjgile117 Colonies/mL . S = Susceptible; I = Intermediate; R = Resistant P = Positive; N = Negative MICS are expressed in micrograms per mL Antibiotic RSLT#1 RSLT#2 RSLT#3 RSLT#4Amikacin SCefepime SCeftazidime SCiprofloxacin SGentamicin SImipenem SLevofloxacin SMeropenem SPiperacillin STica rcillin STobramycin S Urine Final report (Abnormal) Culture,Comprehensive :42 LDH (LD) (LACTATE DEHYDROGENASE) Comments: PATIENT NOT FASTINGPERFORMED BY: [facility] Djcwbt1526 [facility] [id number] (69579) LDH 239 [iU]/L (Abnormal) Range: 119-226 :42 SED RATE ERYTHROCYTE (30918) Comments: PATIENT NOT FASTINGPERFORMED BY: [employer] [facility] Myrmnz7903 [address] SavaJe TechnologiesCone Health [facility] [id number] Sedimentation Rate-Westergren 2 mm/h (Normal) Range: 0-40 :42 C-REACTIVE PROTEIN (30894) Comments: PATIENT NOT FASTINGPERFORMED BY: [facility] [id number] C-Reactive Protein, Quant 2.1 mg/L (Normal) Range: 0.0-4.9 :42 URINALYSIS, W/ MICRO (07175) Comments: PATIENT NOT FASTINGPERFORMED BY: [facility] [id number] Microscopic Examination See below: (Normal) Comments: Microscopic was indicated and was performed. Nitrite, Urine Negative (Normal) Urobilinogen,Semi-Qn 0.2 mg/dL (Normal) Range: 0.2-1.0 Bilirubin Negative (Normal) Occult Blood Negative (Normal) Ketones Negative (Normal) Glucose Negative (Normal) Protein Negative (Normal) WBC Esterase 2+ (Abnormal) Appearance Clear (Normal) Urine-Color Yellow (Normal) pH 6.5 (Normal) Range: 5.0-7.5 Specific [place] 1.022 (Normal) Range: 1.005-1.030 :42 TSH (86432) Comments: PATIENT NOT FASTINGPERFORMED BY: [facility] [id number] TSH 3.290 {uIU/mL} (Normal) Range: 0.450-4.500 :42 CBC W/AUTO DIFF WBC Comments: PATIENT NOT FASTINGPERFORMED BY: [facility] [id number] Information: SRC:UC (37544) Immature Grans (Abs) 0.0 {x10E3/uL} (Normal) Range: [...] 3.77-5.28 WBC 4.7 {x10E3/uL} (Normal) Range: 3.4-10.8 98-Mtu-943977:50 Alanine Aminotransferas (SGPT) Comments: [address] [place], [place], [address] ALT 25 U/L (Normal) Range: 12-78 41-Ulc-139250:50 AST(SGOT) Comments: [address] [place], [place], [address]2520[address] AST 21 U/L (Normal) Range: 15-37 40-Bec-788835:50 Basic Metabolic Profile (BMP) Comments: [address] [place], [place], [address] GAP 8 (Normal) Range: 5-15 CO2 30.0 [...] 7-18 GLU 87 mg/dL (Normal) Range: 70-110 20-Sip-127295:50 Hemoglobin A1c Comments: [facility] Vmecdsbzfc36[address] [place], [place], [address] HGB A1C 6.5 % (Abnormal) Range: 4.2-6.3 09-Sbk-273916:50 Lipid Profile Comments: [facility] Jbxgueudhh1487 [address] [place], [place], [address] VLDL 7 mg/dL (Normal) Range: 5-40 LDL [...] 200-240 mg/dL Borderline >240 mg/dL High Risk 69-Pxa-875753:50 T4 Free Direct Comments: [facility] Ulnspsjwiy38[address] [place], [place], [address] T4 FREE DIRECT 1.39 ng/dL (Normal) Range: 0.76-1.46 44-Fzv-018321:50 Vitamin B12 513 pg/mL (Normal) Comments: [facility] Tmicptxiii4677 [address] [place], [address] Range: 211-911 89-Ltn-617050:50 Vitamin D,25 Hydroxy Comments: [facility] Rgaljjwgej2878 [address] [place], [address] Vitamin D 25-OH 65.2 ng/mL (Normal) Comments: Vitamin D 25(OH) Status Range Deficiency <20 ng/mL (50nmol/L) Insuffciency 20 - 30 ng/mL (50 - 75 nmol/L) Sufficiency 30 - 100 ng/mL (75 - 250 nmol/L) Toxicity >100 ng/mL (>250 nmol/L) 62-Wyj-886321:51 Rapid Flu (91723 x 2) Comments: negative Influenza A Ag neg (Normal) 83-Xkz-19022:59 THROAT CULTURE (22800) Comments: PATIENT NOT FASTINGPERFORMED BY: [facility] [employer] [facility] [id number] Information: SRC: Result 1 RRF (Normal) Comments: Routine respiratory maryam Upper Respiratory Culture Final report (Normal) 87-Ggu-255458:15 PROLACTIN (46094) Comments: PATIENT NOT FASTINGPERFORMED BY: [facility] Ddxmyd4875 [facility] [id number] Prolactin 10.1 ng/mL (Normal) Range: 4.8-23.3 08-Oct-20168:40 Alanine Aminotransferas (SGPT) Comments: [facility] Sstzgbgylw[address] [place], [address] ALT 23 U/L (Normal) Range: 12-78 08-Oct-20168:40 AST(SGOT) Comments: [facility] Z[address]ylwkvb[address] [place], [address] AST 22 U/L (Normal) Range: 15-37 :40 Basic Metabolic Profile (BMP) Comments: [facility] Zikhfpkaso6690 [address] [place], [address] GAP 9 [...] per A.D.A. criteria. :40 Hemoglobin A1c Comments: [facility] Gfeiyzdrir6807 [facility] [place], [place], [address] HGB A1C 6.6 % (Abnormal) Range: 4.2-6.3 :40 Lipid Profile Comments: [facility] Muosedvfip0850 [facility] [place], [place], [address] VLDL 7 mg/dL (Normal) Range: 5-40 LDL [...] High Risk :40 Microalb:Creat Ratio,Random UR Comments: [facility] Dqnvrgpaiv0126 [address] [place], [address] MALB:CREAT 8.4 {mg/g_CRE} (Normal) MICROALBUMIN,UR 11.5 mg/L (Normal) UR CREAT 137.00 mg/dL (Normal) :40 T4 Free Direct Comments: [facility] Xyhrlwzswx2042 [address] [place], [address] T4 FREE DIRECT 1.49 ng/dL (Abnormal) Range: 0.76-1.46 :40 Thyroid Stim Hormone (TSH) Comments: [facility] Vuxgjowncp8202 [address] [place], [address] TSH 1.79 {uIU/mL} (Normal) Range: 0.358-3.74 :40 Vitamin B12 624 pg/mL (Normal) Comments: [facility] Zljlhdswzf7165 [address] [place], [address] Range: 211-911 :40 Vitamin D,25 Hydroxy Comments: [facility] Acenvzqwpv2774 [address] [place], [address] Vitamin D 25-OH 55.6 ng/mL (Normal) Comments: Vitamin D 25(OH) Status Range Deficiency <20 ng/mL (50nmol/L) Insuffciency 20 - 30 ng/mL (50 - 75 nmol/L) Sufficiency 30 - 100 ng/mL (75 - 250 nmol/L) Toxicity >100 ng/mL (>250 nmol/L) :40 Alanine Aminotransferas (SGPT) Comments: [facility] Vstxryghei4358 [address] [place], [address] ALT 24 U/L (Normal) Range: 12-78 :40 AST(SGOT) Comments: [facility] Xztvhfkotw7186 [address] [place], [address] AST 21 U/L (Normal) Range: 15-37 :40 Basic Metabolic Profile (BMP) Comments: [facility] Xgztfykgfg4391 [address] [place], [place], [address] GAP 9 (Normal) Range: 5-15 CO2 29.0 [...] per A.D.A. criteria. :40 Hemoglobin A1c Comments: [facility] Sbaryidbnx1648 [address] [place], [place], [address] HGB A1C 6.5 % (Abnormal) Range: 4.2-6.3 :40 Lipid Profile Comments: [facility] Nbyhybusxf2583 [address] [place], [place], [address] VLDL 5 mg/dL (Normal) Range: 5-40 LDL [...] mg/dL High Risk :40 Microalbumin,Random Urine Comments: [facility] Lhkwdeegxp3584 [address] [place], [address] MICROALBUMIN,UR 13.4 mg/L (Normal) :40 T4 Free Direct Comments: [facility] Jptmjyqijv5[address] [place], [place], [address] T4 FREE DIRECT 1.55 ng/dL (Abnormal) Range: 0.76-1.46 :40 Thyroid Stim Hormone (TSH) Comments: [facility] Ylaexmvtuq4779 [place], [address] TSH 1.40 {uIU/mL} (Normal) Range: 0.358-3.74 :40 Vitamin B12 720 pg/mL (Normal) Comments: [facility] Twqpceotsj3868 [place], [address] Range: 211-911 :40 Vitamin D,25 Hydroxy Comments: [facility] Nqfgerfyhj8394 [address] [place], [place], [address] Vitamin D 25-OH 55.5 ng/mL (Normal) Comments: Vitamin D 25(OH) Status Range Deficiency <20 ng/mL (50nmol/L) Insuffciency 20 - 30 ng/mL (50 - 75 nmol/L) Sufficiency 30 - 100 ng/mL (75 - 250 nmol/L) Toxicity >100 ng/mL (>250 nmol/L) :08 Comprehensive Comments: DR KHANNA ORDERED LIPID/CMP/TSHH CHASIDY ORDERED A1C/AST/ALT/LIPID/BMP/TSH/T4F/B12/[facility]DW[facility] Iddekbczrh5644 [place], [address] Metabolic Profil [...] result less than 50 mg/dL suggests HYPOGLYCEMIA. 65-Udr-92257:08 Hemoglobin A1c Comments: DR KHANNA ORDERED LIPID/CMP/TOVA GUERRA ORDERED A1C/AST/ALT/LIPID/BMP/TSH/T4F/B12/VITDWK[facility] Bctvugtojl9403 [address] [place], [place], [address] HGB A1C 6.5 % (Abnormal) Range: 4.2-6.3 :08 Lipid Profile Comments: DR KHANNA ORDERED LIPID/CMP/TOVA GUERRA ORDERED A1C/AST/ALT/LIPID/BMP/TSH/T4F/B12/[facility] Yxflqhwjyy3202 [place], [address] VLDL 8 mg/dL (Normal) Range: [...] T4 Free Direct Comments: DR KHANNA ORDERED LIPID/CMP/TSHFRANKLIN COUNTY MEMORIAL HOSPITALCHASIDY ORDERED A1C/AST/ALT/LIPID/BMP/TSH/T4F/B12/[facility] Ktdaigbngv4682 [place], [address] T4 FREE DIRECT 1.67 ng/dL (Abnormal) Range: 0.76-1.46 :08 Thyroid Stim Comments: DR KHANNA ORDERED LIPID/CMP/[facility] CHASIDY ORDERED A1C/AST/ALT/LIPID/BMP/TSH/T4F/B12/[facility]ITOhio[facility] Iifjtzrvkn1806 [place], [address] Hormone (TSH) TSH 0.43 {uIU/mL} (Normal) Range: 0.358-3.74 :08 Vitamin B12 622 pg/mL (Normal) Comments: DR KHANNA ORDERED LIPID/CMP/[facility] CHASIDY ORDERED A1C/AST/ALT/LIPID/BMP/TSH/T4F/B12/[facility] Curfgliset9[address] [place], [address] Range: 211-911 :08 Vitamin D,25 Comments: DR KHANNA ORDERED LIPID/CMP/TSHH CHASIDY ORDERED A1C/AST/ALT/LIPID/BMP/TSH/T4F/B12/[facility]DWK[facility] Hospital Gknkpixhui8955 [address] [place], [place], [address] Hydroxy Vitamin D 25-OH 52.9 ng/mL (Normal) Comments: Vitamin D 25(OH) Status Range Deficiency <20 ng/mL (50nmol/L) Insuffciency 20 - 30 ng/mL (50 - 75 nmol/L) Sufficiency 30 - 100 ng/mL (75 - 250 nmol/L) Toxicity >100 ng/mL (>250 nmol/L) :20 CBC W/Diff, Automated Comments: [facility] Qkgkqcjoea2082 [address] [place], [place], [id number] Absolute Lymph 1.13 {X10_3/ul} (Normal) Range: 0.83-4.51 [...] LIPID MIACRE VITD B12DR.OLIVER CRP CBCD CMP [facility] [id number] [place], [address] GAP 6 (Normal) Range: 5-15 CO2 30.0 [...] CRP CBCD [facility] [id number] [place], [address] C-REACTIVE PROT < 2.90 mg/L (Normal) Range: 0.0-3.0 Comments: C-Reactive Protein (CRP) provides useful information for thediagnosis, therapy and monitoring of inflammatory processesand associated diseases. For the evaluation of Relative Riskfor Cardiovascular Dise ase, a High Sensitivity CRP (HSCRP)should be ordered. :20 Erythrocyte Sed Rate Comments: [facility] [id number] [place], [address] SED RATE 2 mm/h (Normal) Range: 0-30 :20 Hemoglobin A1c Comments: [facility] [id number] [place], [address] HGB A1C 6.3 % (Normal) Range: 4.2-6.3 :20 Lipid Profile Comments: A1C TSH AST ALT BMP LIPID MIACRE VITD B12DR.OLIVER CRP CBCD [facility] [id number] [place], [address] VLDL 7 mg/dL (Normal) Range: [...] High Risk :20 Microalb:Creat Ratio,Random UR Comments: [facility] [id number] [place], [address] MALB:CREAT 6.4 {mg/g_CRE} (Normal) MICROALBUMIN,UR 10.0 mg/L (Normal) UR CREAT 157.00 mg/dL (Normal) :20 Thyroid Stim Hormone (TSH) Comments: A1C TSH AST ALT BMP LIPID MIACRE VITD B12DR.OLIVER CRP CBCD CMP [facility] [address] [place], [address] TSH 0.54 {uIU/mL} (Normal) Range: 0.358-3.74 :20 Vitamin B12 391 pg/mL (Normal) Comments: [facility] [address] [place], [address] Range: 211-911 :20 Vitamin D,25 Hydroxy Comments: [facility] [address] [place], [address] Vitamin D 25-OH 55.1 ng/mL (Normal) Comments: Vitamin D 25(OH) Status Range Deficiency <20 ng/mL (50nmol/L) Insuffciency 20 - 30 ng/mL (50 - 75 nmol/L) Sufficiency 30 - 100 ng/mL (75 - 250 nmol/L) Toxicity >100 ng/mL (>250 nmol/L) 6-Mdw-213730:47 Rapid Flu (21651 x 2) Influenza A Ag negative a and b (Normal) :22 Alanine Aminotransferas (SGPT) Comments: [facility] [address] [place], [address] ALT 29 U/L (Normal) Range: 12-78 :22 AST(SGOT) Comments: [facility] [address] [place], [address] AST 21 U/L (Normal) Range: 15-37 10-Dsj-03566:22 Basic Metabolic Profile (BMP) Comments: [facility] [address] [place] [place], [address] GAP 6 (Normal) Range: 5-15 [...] (Abnormal) Range: 70-110 :22 Hemoglobin A1c Comments: [facility] [address] [place], [address] ; non-emergent till apt and ordered by another dr HGB A1C 6.4 % (Abnormal) Range: 4.2-6.3 :22 Lipid Profile Comments: [facility] [address] [place], [address] VLDL 7 mg/dL (Normal) Range: [...] High Risk :22 Microalb:Creat Ratio,Random UR Comments: [facility] [address] [place], [address] MALB:CREAT 10.6 {mg/g_CRE} (Normal) MICROALBUMIN,UR 8.2 mg/L (Normal) UR CREAT 77.60 mg/dL (Normal) :22 Thyroid Stim Hormone (TSH) Comments: [facility] [address] [place], [address] TSH 0.88 {uIU/mL} (Normal) Range: 0.358-3.74 :22 Vitamin B12 470 pg/mL (Normal) Comments: [facility] [address] [place], [address] Range: 211-911 :22 Vitamin D,25 Hydroxy Comments: [address] [place], [address] Vitamin D 25-OH 50.9 ng/mL (Normal) Comments: Vitamin D 25(OH) Status Range Deficiency <20 ng/mL (50nmol/L) Insuffciency 20 - 30 ng/mL (50 - 75 nmol/L) Sufficiency 30 - 100 ng/mL (75 - 250 nmol/L) Toxicity >100 ng/mL (>250 nmol/L) :46 Alanine Aminotransferas (SGPT) Comments: [address] [place], [address] ALT 30 U/L (Normal) Range: 12-78 :46 AST(SGOT) Comments: [address] [place], [address] AST 26 U/L (Normal) Range: 15-37 :46 Basic Metabolic Profile (BMP) Comments: [address] [place], [id number] GAP 7 (Normal) Range: 5-15 CO2 31.0 [...] (Normal) Range: 70-110 :46 Hemoglobin A1c Comments: [facility] [address] [facility] [address] [place], [place], [id number] HGB A1C 6.8 % (Abnormal) Range: 4.2-6.3 :46 Lipid Profile Comments: [facility] [address] [facility] [address] [place], [place], [id number] VLDL 6 mg/dL (Normal) Range: 5-40 LDL [...] Risk :46 Thyroid Stim Hormone (TSH) Comments: [facility] [address] [facility] [place], [address] TSH 1.82 {uIU/mL} (Normal) Range: 0.358-3.74 :46 Vitamin B12 423 pg/mL (Normal) Comments: [facility] [address] [place], [place], [id number] Range: 211-911 24-Vlj-98220:46 Vitamin D,25 Hydroxy Comments: [facility] [address] [place], [address] Vitamin D 25-OH 83.9 ng/mL (Normal) Comments: Vitamin D 25(OH) Status Range Deficiency <20 ng/mL (50nmol/L) Insuffciency 20 - 30 ng/mL (50 - 75 nmol/L) Sufficiency 30 - 100 ng/mL (75 - 250 nmol/L) Toxicity >100 ng/mL (>250 nmol/L) 10-Mar-20159:14 Alanine Aminotransferas (SGPT) Comments: Test performed at:[facility] [address] [place] [address] ALT 26 U/L (Normal) Range: 12-78 :14 AST(SGOT) Comments: Test performed at:[facility] [address] [place] [address] AST 20 U/L (Normal) Range: 15-37 10-Mar-20159:14 Basic Metabolic Profile (BMP) Comments: Test performed at:[facility] [address] [place] [address] GAP 12 (Normal) Range: 5-15 [...] Comments: Please note revised CREATININE reference range fgzemfvrk81/22/2015. BUN 16 mg/dL (Normal) Range: 7-18 GLU 138 mg/dL (Abnormal) Range: 70-110 Comments: Fasting Glucose result greater than or equal to 126 mg/dLsuggests DIABETES MELLITUS per A.D.A. criteria. :14 Hemoglobin A1c Comments: Test performed at:[facility] [address] [place] [address] HGB A1C 6.6 % (Abnormal) Range: 4.2-6.3 :14 Lipid Profile Comments: Test performed at:[facility] [address] [place] [address] VLDL 6 mg/dL (Normal) Range: [...] Thyroid Stim Hormone (TSH) Comments: Test performed at:[facility] [address] [place] [address] TSH 1.65 {uIU/mL} (Normal) Range: 0.358-3.74 :14 Vitamin B12 358 pg/mL (Normal) Comments: Test performed at:[facility] [address] [place] [address] Range: 211-911 :14 Vitamin D,25 Hydroxy Comments: Test performed at:[facility] [address] [place] [address] Vitamin D 25-OH 50.8 ng/mL (Normal) Comments: Vitamin D 25(OH) Status Range Deficiency <20 ng/mL (50nmol/L) Insuffciency 20 - 30 ng/mL (50 - 75 nmol/L) Sufficiency 30 - 100 ng/mL (75 - 250 nmol/L) Toxicity >100 ng/mL (>250 nmol/L) :33 Microalbumin,Random Urine Comments: Test performed at:[facility] [address] [place] [address] MICROALBUMIN,UR 10.1 mg/L (Normal) :29 Alanine Aminotransferas (SGPT) Comments: Test performed at:[facility] [address] [place] [address] ALT 26 U/L (Normal) Range: 12-78 :29 AST(SGOT) Comments: Test performed at:[facility] [address] [place] [address] AST 21 U/L (Normal) Range: 15-37 :29 Basic Metabolic Profile (BMP) Comments: Test performed at:[facility] [address] [place] [address] GAP 7 (Normal) Range: 5-15 [...] Swartz. :29 Hemoglobin A1c Comments: Test performed at:[facility] [address] [place] [address] HGB A1C 6.4 % (Abnormal) Range: 4.2-6.3 :29 Lipid Profile Comments: Test performed at:[facility] [address] [place] [id number] VLDL 4 mg/dL (Abnormal) Range: 5-40 LDL [...] Thyroid Stim Hormone (TSH) Comments: Test performed at:[facility] [address] [place] [address] TSH 2.02 {uIU/mL} (Normal) Range: 0.358-3.74 72-Smt-10987:29 Vitamin B12 392 pg/mL (Normal) Comments: Test performed at:[facility] [address] [place] [id number] Range: 211-911 :29 Vitamin D,25 Hydroxy Comments: Test performed at:[facility] [address] [place] [id number] Vitamin D 25-OH 38.5 ng/mL (Normal) Comments: Vitamin D 25(OH) Status Range Deficiency <20 ng/mL (50nmol/L) Insuffciency 20 - 30 ng/mL (50 - 75 nmol/L) Sufficiency 30 - 100 ng/mL (75 - 250 nmol/L) Toxicity >100 ng/mL (>250 nmol/L) 4-Xil-478438:15 Protein Electro, Random Urine Comments: PERFORMED BY: [facility]16 [facility] [id number] Please note: SPRCS (Normal) Comments: Protein electrophoresis scan will follow via computer, mail, orcourier delivery. M-Denis, % Not Observed % (Normal) Gamma Globulin, U 27.0 % (Normal) Beta Globulin, U 46.8 % (Normal) Wxbdg-9-Erjjwnwz, U 10.6 % (Normal) Gdugj-6-Lyruermh, U 0.0 % (Normal) Albumin, U 15.7 % (Normal) Protein,Total,Urine 9.0 mg/dL (Normal) Range: 0.0-15.0 9-Yfl-293366:15 Protein Electro.,S Comments: PERFORMED BY: DARREN ISIGN [facility] [id number] Please note: SPRCS (Normal) Comments: Protein electrophoresis scan will follow via computer, mail, orcourier delivery. A/G Ratio 1.8 (Normal) Range: 0.7-2.0 Globulin, Total 2.0 g/dL (Normal) Range: 2.0-4.5 M-Denis Not Observed g/dL (Normal) Gamma Globulin 0.5 g/dL (Normal) Range: 0.5-1.6 Beta Globulin 0.7 g/dL (Normal) Range: 0.6-1.3 Wvdqb-3-Wrwdkxxs 0.6 g/dL (Normal) Range: 0.4-1.2 Mwlmz-7-Zmjhhrgl 0.2 g/dL (Normal) Range: 0.1-0.4 Albumin 3.7 g/dL (Normal) Range: 3.2-5.6 Protein, Total, Serum 5.7 g/dL (Abnormal) Range: 6.0-8.5 5-Shf-667442:15 PARATHORMONE (47346) Comments: PERFORMED BY: DARREN [employer] [facility] [id number] PTH, Intact 17 pg/mL (Normal) Range: 15-65 7-Tif-503444:15 PHOSPHORUS (52950) Comments: PERFORMED BY: [facility] [id number] Phosphorus, Serum 3.0 mg/dL (Normal) Range: 2.5-4.5 3-Mjn-526437:50 URINE CALCIUM DIMITRY TIMED Comments: PATIENT NOT FASTINGPERFORMED BY: DARREN ISIGN [facility] [id number] Information: [id number] START 10/06/14@930AM FINISH; non-emergent till apt 24 Hour (26408) Calcium, Urine 24hr 190.0 {mg/24_hr} (Normal) Range: 100.0-300.0 Calcium, Urine 19.0 mg/dL (Normal) :41 Alanine Aminotransferas (SGPT) Comments: Test performed at:[facility] [address] [place] [address] ALT 30 U/L (Normal) Range: 12-78 :41 AST(SGOT) Comments: Test performed at:[facility] [address] [place] [address] AST 19 U/L (Normal) Range: 15-37 :41 Basic Metabolic Profile (BMP) Comments: Test performed at:[facility] [address] [place] [address] ; non-emergent till apt next week [...] criteria. :41 Hemoglobin A1c Comments: Test performed at:[facility] [address] [place] [address] HGB A1C 6.8 % (Abnormal) Range: 4.2-6.3 Comments: ADDENDA: non-emergent till apt :41 Lipid Profile Comments: Test performed at:[facility] [address] [place] [address] VLDL 7 mg/dL (Normal) Range: [...] Risk :41 Microalbumin,Random Urine Comments: Test performed at:[facility] [address] [place] [address] MICROALBUMIN,UR 15.3 mg/L (Normal) :41 Thyroid Stim Hormone (TSH) Comments: Test performed at:[facility] [address] [place] [address] TSH 1.22 {uIU/mL} (Normal) Range: 0.358-3.74 :41 Vitamin B12 415 pg/mL (Normal) Comments: Test performed at:[facility] [address] [place] [address] Range: 211-911 :41 Vitamin D,25 Hydroxy Comments: Test performed at:[facility] [address] [place] [address] ; will review at 09/16 appt Vitamin D 25-OH 41.4 ng/mL (Normal) Comments: Vitamin D 25(OH) Status Range Deficiency <20 ng/mL (50nmol/L) Insuffciency 20 - 30 ng/mL (50 - 75 nmol/L) Sufficiency 30 - 100 ng/mL (75 - 250 nmol/L) Toxicity >100 ng/mL (>250 nmol/L) :11 Rapid Flu (18980 x 2) Influenza A Ag neg (Normal) :11 Rapid Strep Test, Office (66257) Rapid Strep Test, Office Negative (Normal) :52 [...] CHOL 159 mg/dL (Normal) Comments: <200 mg/dL Aepdllrka248-879 mg/dL Borderline>240 mg/dL High Risk :52 MIALB [...] <126 mg/dLsuggests IMPAIRED HOMEOSTASIS per A.D.A. criteria. 51-Lvw-14062:35 LIPID VLDL 11 mg/dL (Normal) Range: 5-40 [...] CHOL 170 mg/dL (Normal) Comments: <200 mg/dL Ywaqiywho299-644 mg/dL Borderline>240 mg/dL High Risk :35 MIACRE MIALB 6.0 mg/L (Normal) tMICROCREAT 7.0 {mg/g_CRE} (Normal) CREU 85.1 mg/dL (Normal) :35 TSH 0.31 {uIU/mL} (Abnormal) Range: 0.358-3.74 :35 VITD 87.7 mg/mL (Normal) Comments: Vitamin D 25(OH) Status RangeDeficiency <20 ng/mL (50nmol/L)Insuffciency 20 - 30 ng/mL (50 - 75 nmol/L)Sufficiency 30 - 100 ng/mL (75 - 250 nmol/L)Toxicity >100 ng/mL (>250 nmol/L) 97-Czo-16505:54 Urinalysis, Office (73798) UA - LEUKOCYTE ESTERASE Trace (Normal) UA - NITRITE Negative (Normal) URINE UROBILINGN DIMITRY TIMED Normal mg/dL (Normal) UA - PROTEIN Negative mg/dL (Normal) UA - PH 8 (Abnormal) UA - BLOOD Negative (Normal) UA - SPECIFIC GRAVITY 1.010 (Normal) UA - KETONES Negative mg/dL (Normal) UA - BILIRUBIN Negative (Normal) UA - GLUCOSE Negative (Normal) 63-Trg-066591:00 CBCD ANC 2.2 {X10_3/uL} (Normal) Range: 2.0-7.7 [...] 4.2-5.4 WBC 4.4 K/mm3 (Normal) Range: 4.4-11.0 82-Xmo-751349:00 CMP Comments: DR. KHANNA ORDERED TSH,CMP,CBCD,MICROALBUMIN,LIPIDHEIDI BOB [...] 7-18 GLU 60 mg/dL (Abnormal) Range: 70-110 37-Jxg-943825:00 LIPID Comments: DR. KHANNA ORDERED TSH,CMP,CBCD,MICROALBUMIN,LIPIDHEOLI GUERRA CNP ORDERED TSH,T4F VLDL 5 mg/dL (Normal) Range: 5-40 HDL 72 mg/dL (Normal) Comments: Reference RangeHDL <40 mg/dL Low HDL CholesterolHDL >or= 60 mg/dL High HDL Cholesterol LDL 87 mg/dL (Normal) Range: 0-130 CHOL 164 mg/dL (Normal) Comments: <200 mg/dL Gpnzgxjay812-890 mg/dL Borderline>240 mg/dL High Risk TRIG 27 mg/dL (Normal) Range: 0-199 Comments: Serum Triglycerides Reference IntervalNormal <150 mg/dLBorderline high 150 - 199 mg/dLHigh 200 - 499 mg/ dLVery High > or = 500 mg/dL 34-Jwk-189958:00 MIACRE tMICROCREAT 12.6 {mg/g_CRE} (Normal) CREU 44.4 mg/dL (Normal) MIALB 5.6 mg/L (Normal) 27-Xgl-817039:00 T4F 1.40 ng/dL (Normal) Comments: DR. KHANNA ORDERED TSH,CMP,CBCD,MICROALBUMIN,LIPIDDIONE GUERRA CNP ORDERED TSH,T4F Range: 0.76-1.46 51-Fdy-202447:00 TSH 1.28 {uIU/mL} (Normal) Comments: DR. KHANNA ORDERED TSH,CMP,CBCD,MICROALBUMIN,LIPIDDIONE GUERRA CNP ORDERED TSH,T4F Range: 0.358-3.74 36-Pwp-591351:12 HgA1C , Office (89898) HgA1C , Office 6.9 % (Normal) Range: 4.6 - 7.1 4-Lvx-029189:45 URINE VEE CULTURE-DIMITRY COL Comments: PATIENT NOT FASTINGPERFORMED BY: DARREN [facility] Vzsugi4674 [facility] [id number] Information: SRC:DEMARCUS [id number] COUNT (35367) Result 1 MUG (Normal) Comments: Mixed urogenital Colonies/mL Urine Culture,Comprehensive Final report (Normal) 8-Bwi-761011:36 Urinalysis, Office (61581) UA - BILIRUBIN Negative (Normal) UA - BLOOD Negative (Normal) UA - GLUCOSE Moderate (Normal) UA - KETONES Negative mg/dL (Normal) UA - LEUKOCYTE ESTERASE Negative (Normal) UA - NITRITE Negative (Normal) UA - PH 6.5 (Normal) UA - PROTEIN Negative mg/dL (Normal) UA - SPECIFIC GRAVITY 1.025 (Normal) URINE UROBILINGN DIMITRY TIMED Normal mg/dL (Normal) :34 HgA1C , Office (36245) HgA1C , Office 6.4 % (Normal) Range: [...] Hill M.D.January 19, 2013 at 4:08:34 PM [id number] Signed TT/TT If you are the referring physician and would like to consult with theradiologist who provided this interpretation, jonah nasari contact Windy Bravo M.D. at [phone]. If this radiologist is unavailable, emmett directed to another radiologist to assist. If you are a patient with a question regarding this report, pl easecontactyour referring physician directly. Professional Interpretation Provided By: [facility], Phone , These documents contain legally protected [...] 01/19/13 1611 Sign by: Windy Hill MD 9-Vda-894968:51 EBV Acute Infection Comments: PATIENT NOT FASTINGPERFORMED BY: [facility]6370 [facility] [id number] Information: [id number] Antibodies EBV Nuclear Antigen Ab, 7.4 {AI} [...] Negative (Normal) Comments: PATIENT NOT FASTINGPERFORMED BY: [facility] Gvdyzu2067 [facility] [id number] 4:51 Comments: The sensitivity of Heterophile antibody testing is 80-90%.Soco Wolfe IgM testing offers higher sensitivity. Written Authorization WAR (Normal) Comments: PATIENT NOT FASTINGPERFORMED BY: [facility]6370 [facility] [id number] 4:51 Comments: Written Authorization Received.Authorization received from AGUSTINA HARRY 09-03-6644Rowynf by Shellie Silvestre :51 TSH (94144) Comments: PATIENT NOT FASTINGPERFORMED BY: [facility] [id number] TSH 0.109 {uIU/mL} (Abnormal) Range: 0.450-4.500 :51 T4, FREE (THYROXINE) Comments: PATIENT NOT FASTINGPERFORMED BY: [facility] [id number] Information: [id number] (68274) T4,Free(Direct) 2.12 ng/dL (Abnormal) Range: 0.82-1.77 5-Pps-623187:51 T3, FREE (TRIDOTHYRONINE) (86604) Comments: PATIENT NOT FASTINGPERFORMED BY: [facility] HospitalTthujm8674 [facility] [id number] Triiodothyronine,Free,Serum 3.1 pg/mL (Normal) Range: 2.0-4.4 2-Iyr-625831:36 FOOT MIN 3 VIEWS Radiology Report See [...] Pike M.D.December 14, 2012 at 4:05:51 PM [id number] Signed GP/GP If you are the referring physician and would like to consult with theradiologist who provided this interpretation, please contact Douglas Harden at [phone]. If this radiologist is unavailable , youwill [...] 12/14/12 161 Sign by: Salvador Pike MD 4-Iqq-027929:35 ANKLE MIN 3 VIEWS Radiology Report See [...] Pike M.D.December 14, 2012 at 11:22:57 AM [id number] Signed GP/GP If you are the referring physician and would like to consult with theradiologist who provided this interpretation, please contact Douglas Harden at [phone]. If this radiologist is unavailable, youwi ll [...] HYPOGLYCEMIA.CRITICAL VALUE REPEATED AND VERIFIED. CALLED TO DPJBHJ10/19/13 Rudy8 MANDEEP ANDERSON.RESULTS READ BACK BY SAME. :43 DDIMQ 0.30 {FEUug/mL} (Normal) Range: 0.22-0.48 Comments: NORMAL D-Dimer level indicates no DVT or PE. :43 LIPID HDL 69 mg/dL (Normal) Comments: Reference RangeHDL <40 mg/dL Low HDL CholesterolHDL >or= 60 mg/dL High HDL Cholesterol LDL 75 mg/dL (Normal) Range: 0-130 VLDL 9 mg/dL (Normal) Range: 5-40 CHOL 153 mg/dL (Normal) Comments: <200 mg/dL Yzynyhgqn848-168 mg/dL Borderline>240 mg/dL High Risk TRIG 43 mg/dL (Normal) Comments: Serum Triglycerides Reference IntervalNormal <150 mg/dLBorderline high 150 - 199 mg/dLHigh 200 - 499 mg/ dLVery High > or = 500 mg/dL :43 TROP < 0.02 ng/mL (Normal) Comments: TROPONIN-I EXPECTED VALUES <0.05 NEGATIVE0.06 - 0.59 AT RISK OF GA> OR = 0.60 SUGGEST GA 04-Fxu-58691:43 TSH 0.06 {uIU/mL} (Abnormal) Range: 0.358-3.74 74-Pya-654693:06 CHEST, PA AND LATERAL Radiology Report See [...] Pike M.D.October 24, 2012 at 11:17:45 AM [id number] nically Signed GP/GP If you are the referring physician and would like to consult with theradiologist who provided this interpretation, please contact Douglas Harden at [phone]. If this ra diologist is unavailable, youwill be directed to another radiologist to assist. If you are a patient with a question regarding this report, pleasecontactyour referring physician directly. Professional I nterpretation Provided By: [facility], Phone , These documents contain legally protected [...] return or destructionofthese documents. Dictated on 10/23/12 1701 by Shahzad CM,DukerieleTranscribed on 10/24/12 1440 by ITS IMPORTSign by Shahzad CMSalvador on 10/24/12 1441 Sign by: Shahzad CMSalvador 34-Kfp-333450:30 HEPATOBILLIARY IMG W/PHARM INT Radiology Report See Note (Normal) Comments: CLINICAL:51-year-old female with history of right upper quadrant abdominal painandnausea. RADIONUCLIDE HEPATOBILIARY SCINTIGRAPHY COMPARISON:Gallbladder ultrasound report 07/07/12, CT of the abdomen-pel vis abuftm47/23/12 FINDINGS:Following the intravenous administration of 5.2 mCi [...] Cholecystokinin (0.02 ug/kg) was administered intravenously over z16-hxcctd period. The post CCK gallbladder ejection fraction fvcbsxdwrosl27 minutes following Cholec ystokinin administration was noted [...] Iglesias M.D.July 29, 2012 at 1:03:05 PM [id number] Signed RB/RB If you are the referring physician and would like to consult with theradiologist who provided this interpretation, please contact Douglas Sousa at [phone]. If this radiologist is unavailable, you will bedirected to another radiologist to assist. If you are a patient with a question regarding this report, pleasecontactyour referring physician directly. Professional Interpretation Provided By: [facility], Phone , T hese documents contain legally [...] 07/29/12 1308 Sign by: Silvano Iglesias DO 97-Mxo-040745:57 Urinalysis, Office (42822) UA - BILIRUBIN Negative (Normal) UA - BLOOD Negative (Normal) UA - GLUCOSE Trace (Normal) Comments: 100mg UA - KETONES Negative mg/dL (Normal) UA - LEUKOCYTE ESTERASE Negative (Normal) UA - NITRITE Negative (Normal) UA - PH 7.0 (Normal) UA - PROTEIN Negative mg/dL (Normal) UA - SPECIFIC GRAVITY 1.010 (Normal) URINE UROBILINGN DIMITRY TIMED Normal mg/dL (Normal) 83-Dai-408100:35 GALLBLADDER Radiology Report See Note (Normal) Comments: [...] size of the right kidney. The right sctxqifiiiaegc17.5 x 4.7 x 3.7 cm. Normal renal cortex. The right cortex measures 1.0cm. There is no demonstrated renal mass or cyst. There is no righthydronephrosis. IMPRESSION:Focal right hepatic lobe well-circumscribed echogenic lesion consist entwith an hemangioma. No evidence of an acute intra-abdominal process. Signed:Tan Agee M.D.July 07, 2012 at 9:08:04 PM [phone] Signed SH/SH If you are the referring ph ysician and would like to consult with theradiologist who provided this interpretation, please contact Douglas Cohn at [phone]. If this radiologist is unavailable, youwillbe directed to [facility] ther radiologist to assist. If you are a patient with a question regarding this report, pleasecontactyour referring physician directly. Professional Interpretation Provided By: [facility], Phone , These documents contain legally protected [...] 21 13 Sign by: Tan Agee MD 94-Swr-209710:35 PELVIC BLOCKER AND SEWER WITH ARTERIAL FLOW Radiology Report See Note [...] Agee M.D.July 07, 2012 at 9:28:02 PM [id number] Signed SH/SH If you are the referring physician and would like to consu lt with theradiologist who provided this interpretation, please contact Douglas Cohn at [phone]. If this radiologist is unavailable, youwillbe directed [...] on 07/07/122132 Sign by: Tan Agee MD 22-Pdv-00550:58 ABDOMEN/PELVIS WITH CONTRAST Radiology Report See Note [...] Ribera M.D.June 30, 2012 at 10:36:06 AM [id number] Signed MELI/MELI If you are the referring [...] 114 Sign by: ____ Renato Guo MD 15-Wuc-817088:24 Urine Culture,Comprehensive Comments: PATIENT NOT FASTINGPERFORMED BY: [facility] Iigrou7555 [facility] [id number] Information: SRC:UR [id number] Antimicrobial MIHEAD (Normal) Comments: S = Susceptible; [...] mL (Normal) Urine Final report Culture,Comprehensive (Normal) 10-Mwy-950848:20 Urinalysis, Office (98533) UA - BILIRUBIN Negative (Normal) UA - [...] Osteoporosis (Renamed from OP (osteoporosis)) : Reviewed 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 Letter Indication: Osteoporosis (Renamed from OP (osteoporosis)) Diabetes mellitus type 1, controlled : *Diabetes Education Indication: Diabetes mellitus type 1, controlled Mixed hyperlipidemia : Cholesterol mgmt Indication: Mixed hyperlipidemia Anxiety : Eprescribed prescriptions (G8553) Indication: Anxiety Accidental fall, sequela : Reviewed Wallpaper Printer Helper Letter Indication: Accidental fall, sequela Cough : [...] upper quadrant Planned Observations MICROALBUMIN: CREATININE RATIO (70032) AND (35612)Indication: Diabetes mellitus type 1, controlled On: 6-Uhb-272561:07 Request METABOLIC PANEL, COMPREHENSIVE (29291)Indication: Mixed hyperlipidemia On: 4-Asr-047457:07 Request LIPID PANEL (30442)Indication: Mixed hyperlipidemia On: 1-Jwh-115585:06 Request CBC W/AUTO DIFF WBC (59012)Indication: Arthritis, rheumatoid On: 5-Nqd-395625:07 Request CBC W/AUTO DIFF WBC (18014)Indication: Chest pain with high risk for cardiac etiology On: 6-Apr-06509:38 Request METABOLIC PANEL, COMPREHENSIVE (51160)Indication: Mixed hyperlipidemia On: :38 Request LIPID PANEL (47047)Indication: Mixed hyperlipidemia On: :38 Request Rapid Strep Test, Office (83937)Indication: Sore throat On: 73-Ilc-074184:51 Request Comments: negative METABOLIC PANEL, COMPREHENSIVE (66083)Indication: Diabetes mellitus type 1, controlled On: :22 Request TSH (88235)Indication: Acquired hypothyroidism On: :22 Request LIPID PANEL ([id number])Indication: Mixed hyperlipidemia On: :22 Request METABOLIC PANEL, COMPREHENSIVE ([id number])Indication: Mixed hyperlipidemia On: :54 Request Vitamin D Hydroxy (60787)Indication: Osteoporosis (Renamed from OP (osteoporosis)) On: 92-Zsm-869343:54 Request LIPID PANEL ([id number])Indication: Mixed hyperlipidemia On: 07-Nid-104942:53 Request Vitamin D Hydroxy (66394)Indication: Osteoporosis (Renamed from OP (osteoporosis)) On: 56-Vzo-684526:42 Request TSH ([id number])Indication: Acquired hypothyroidism On: 46-Bux-610757:42 Request CBC W/AUTO DIFF WBC ([id number])Indication: Diabetes mellitus type 1, controlled On: 52-Vhx-632722:42 Request METABOLIC PANEL, COMPREHENSIVE ([id number])Indication: Diabetes mellitus type 1, controlled On: 64-Ons-858312:42 Request LIPID PANEL ([id number])Indication: Mixed hyperlipidemia On: 37-Nnj-332439:42 Request UPEP ([id number])Indication: Osteoporosis (Renamed from OP (osteoporosis)) On: 3-Iib-578397:43 Request SPEP ([id number])Indication: Osteoporosis (Renamed from OP (osteoporosis)) On: 0-Xsy-885879:43 Request Throat Culture ([id number])Indication: Acute pharyngitis On: :11 Request Influenza A&B Viral Culture ([id number])Indication: Acute pharyngitis On: :11 Request Vitamin D Hydroxy ([id number])Indication: Osteopenia On: :25 Request LIPID PANEL ([id number])Indication: Diabetes mellitus type 1, controlled On: :00 Request TSH ([id number])Indication: Multinodular goiter On: 40-Nlo-266752:00 Request MICROALBUMIN: CREATININE RATIO ([id number]) AND ([id number])Indication: Diabetes mellitus type 1, controlled On: :59 Request CBC WITH MANUAL DIFF ([id number])Indication: Diabetes mellitus type 1, controlled On: :59 Request METABOLIC PANEL, COMPREHENSIVE ([id number])Indication: Diabetes mellitus type 1, controlled On: :59 Request TSH ([id number])Indication: Acquired hypothyroidism On: 4-Vcx-285776:17 Request Comments: 6 weeks TSH ([id number])Indication: Abnormal TSH On: :52 Request T4, FREE (THYROXINE) ([id number])Indication: Abnormal TSH On: :52 Request T3, FREE (TRIDOTHYRONINE) ([id number])Indication: Abnormal TSH On: :52 Request EBV Panel ([id number])Indication: Fatigue On: 1-Mrb-281400:55 Request MONOSPOT TEST ([id number])Indication: Fatigue On: 6-Kjl-859892:54 Request LIPID PANEL ([id number])Indication: Mixed hyperlipidemia On: :21 Request HEPATIC FUNCTION PANEL ([id number])Indication: Mixed hyperlipidemia On: 84-Bud-87420:20 Request TSH ([id number])Indication: Acquired hypothyroidism On: :17 Request T4, FREE (THYROXINE) ([id number])Indication: Acquired hypothyroidism On: :17 Request T3, FREE (TRIDOTHYRONINE) ([id number])Indication: Acquired hypothyroidism On: :17 Request ASSAY, TROPONIN, QUANTITATIVE (aka Troponin I) ([id number])Indication: CHEST PAIN On: :28 Request D-Dimer ([id number])Indication: CHEST PAIN On: :28 Request CBC WITH MANUAL DIFF ([id number])Indication: CHEST PAIN On: :27 Request METABOLIC PANEL, COMPREHENSIVE ([id number])Indication: CHEST PAIN On: :27 Request TSH ([id number])Indication: Acquired hypothyroidism On: 19-Ibp-239642:27 Request LIPID PANEL ([id number])Indication: Mixed hyperlipidemia On: 04-Zpv-540438:26 Request URINE VEE CULTURE-IDENTIFICATN ([id number])Indication: Urinary frequency On: 0-Cic-178011:31 Request CBC WITH MANUAL DIFF ([id number])Indication: Abdominal pain, acute, right upper quadrant On: 46-Clf-238547:42 Request LIPID PANEL ([id number])Indication: Mixed hyperlipidemia On: :24 Request CBC WITH MANUAL DIFF ([id number])Indication: Mixed hyperlipidemia On: :24 Request METABOLIC PANEL, COMPREHENSIVE ([id number])Indication: Mixed hyperlipidemia On: :24 Request Planned Encounters Medical; [facility] 3 Month FU - On: 25-Aug-2018 10:30 [facility] Fast DO, Karin A Fast DO, Karin A Planned Procedures Radiology - Cervical SpineBy: On: 21-Jun-2018 Intent Fast DO, Karin A Fast DO, Karin A Kplhvqzaf-Xsz-Opbye ([id number])By: On: 21-Jun-2018 Intent Fast DO, Karin A Fast DO, Karin A Flu Vaccine (Quadrivalent) On: 18-May-2018 Intent 60644Dt: Visit, Nurse Nuclear Stress Test/Stress On: 14-Oct-2017 Intent SPECT/AdenosineBy: Fast DO, Karin A Fast DO, Karin A SCREENING DIGITAL TOMOSYNTHESIS On: 14-Oct-2017 Intent OF BREAST ([id number])By: Fast DO, Karin A Fast DO, Karin A Ultrasound - ThyroidBy: Fast DO, On: 14-Oct-2017 Intent Karin A Fast DO, Karin A ELECTROCARDIOGRAM, COMPLETE (ECG) On: 14-Oct-2017 Intent ([id number])By: Fast DO, Karin A Fast Comments: ekg [...] A ELECTROCARDIOGRAM, COMPLETE (ECG) On: 02-Feb-2017 Intent ([id number])By: Fast DO, Karin A Fast Comments: ekg showed normal sinus rhythym, normal axis, no acute st/t wave changes DO, Karin A MRI OF RIGHT BREAST WITH AND On: 02-Nov-2016 Intent WITHOUT CONTRAST ([id number])By: Colton HARRIS, Karin A Fast DO, Karin A MAMMOGRAM BREAST BILATERAL On: 25-Oct-2016 Intent DIAGNOSTIC ([id number])By: Fast DO, Karin A Fast DO, Karin A Ultrasound - Breast - RightBy: On: 22-Oct-2016 Intent Fast DO, Karin A Fast DO, Karin A Comments: axilla Ultrasound - ThyroidBy: Colton DO, On: 22-Oct-2016 Intent Karin A Fast DO, Karin A Radiology - Chest- PA and LatBy: On: 13-Sep-2016 Intent Keena Thomas DO Aerosol Treatment ([id number])By: On: 13-Sep-2016 Intent Keena Thomas DO Comments: more a/e- chest less tight- gave rx for neb Flu Vaccine (Quadrivalent) On: 26-Apr-2016 Intent 09069Zo: Keena Thomas DO Comments: Lot:[id number]:02/04/17mt:0.5mlRoute:IMSite: L DltdGiven By: BUBBA Fernandez signed Radiology - Chest- PA and LatBy: On: 09-Dec-2015 Intent Fast DO, Karin A Fast DO, Karin A Comments: stat Aerosol Treatment ([id number])By: Colton On: 09-Dec-2015 Intent DO, Karin A Fast DO, Karin A Ultrasound - ThyroidBy: Fast DO, On: 27-Oct-2015 Intent Karin A Fast DO, Karin A Flu Vaccine (Quadrivalent) On: 20-May-2015 Intent 93694Iy: Fast DO, Karin A Fast Comments: Lot:[id number]:02/05/16Dose:0.5mLRoute:IMSite:L DltdGiven By:CLIFTON signed Karin HARRIS A IMMUNIZ ADMNIN, 1 VAC, SNGL/COMBO On: 17-May-2014 Intent ([id number])By: Karin Khanna DO Comments: lot:[id number]:02/04/2015dose:0.5mLRoute: IMlocation: L armgiven by: Karin lambert DO FLU VAC, SPLIT, >3 YEARS, On: 17-May-2014 Intent INTRAMUSC ([id number])By: Jessica Javier DEXA SCAN AXIAL SKELETON On: 29-Apr-2014 Intent ([id number])By: Karin Khanna DO, DO, Debra A CT - Abdomen & Pelvis (IV On: 01-Jan-2014 Intent Contrast Needed)By: Noe CM, Comments: assure check kidney stone and any other pathology Roseanne Mccarty Eprescribed prescriptions On: 01-Jan-2014 Intent (G8553)By: Noe CM, Roseanne Mccarty Ultrasound - RenalBy: Ciesa ROOFING APPLICATOR, On: 24-Dec-2013 Intent Vanita Cutler Radiology - Lumbar SpineBy: Ciesa On: 24-Dec-2013 Intent Vanita ROJAS IMMUNIZ ADMNIN, 1 VAC, SNGL/COMBO On: 03-Dec-2013 Intent ([id number])By: Visit, Nurse Comments: Lot: [id number]: [id number]: single unit dose vialRoute:SubcutaneouslySite: L deltoid regionGiven by: LIZANDRO Gonsaleseconstituted with Sterile Diluent Lot #[id number], exp. date , given within 10 minutes of reconstitution. ZOSTER VACC, [place] ([id number])By: Visit, On: 03-Dec-2013 Intent Nurse Ultrasound - ThyroidBy: Colton HARRIS, On: 16-Oct-2013 Intent Zak Mustafa DOa A Comments: january EsophagramBy: Karin Khanna DO A On: 16-Oct-2013 Intent Colton HARRIS Akrin A Comments: with 12 mm tablet Eprescribed prescriptions On: 16-Oct-2013 Intent (G8553)By: Karin Khanna DO, DO Karin A MAMMOGRAM, SCREENING, BOTH On: 16-May-2013 Intent BREASTS ([id number])By: Fast DO, Karin A Fast DO, Karin A EsophagramBy: Fast DO, Karin A On: 16-May-2013 Intent Fast DO, Karin A Comments: with 12 mmm tablet FLU VAC, SPLIT, >3 YEARS, On: 16-May-2013 Intent INTRAMUSC ([id number])By: Pedro, Comments: Lot #:[id number] date:mount given:0.5mlRoute: IMSite given: L dltdVIS and ABN signedGiven by: JUNE Quiroga IMMUNIZ ADMNIN, 1 VAC, SNGL/COMBO On: 16-May-2013 Intent ([id number])By: María Vasquez Eprescribed prescriptions On: 16-May-2013 Intent (G8553)By: María Vasquez Ultrasound - ThyroidBy: Ciesa On: 17-Jan-2013 Intent Vanita ROJAS Eprescribed prescriptions On: 17-Jan-2013 Intent (G8553)By: Magnolia Ricketts LPN Ear Irrigation ([id number])By: Morgana On: 12-Jan-2013 Intent Vanita ROJAS Comments: IrrigationSite- R and L earAmount/Color/Quality - small amount of dark yellow/soft cerumen Toelrated well: yesCurette Used: noChelsea, CORE DIPPER Wax CurettesBy: Ciesa Vanita ROJAS On: 12-Jan-2013 Intent Eprescribed prescriptions On: 12-Jan-2013 Intent ([id number])By: Leola Madsen Radiology - Foot - RightBy: Fast On: 14-Dec-2012 Intent DO, Karin A Fast DO, Karin A Radiology - Ankle - RightBy: Fast On: 14-Dec-2012 Intent DO, Karin A Fast DO, Karin A Radiology - ChestBy: Fast DO, On: 23-Oct-2012 Intent Kairn A Fast DO, Karin A Comments: pa and lateral EKG (02033)By: María Vasquez On: 23-Oct-2012 Intent Comments: ekg [...] DO, Karin A TDAP VACCINE >7 IM (56728)By: On: 07-Apr-2012 Intent María Vasquez Comments: Lot #:[id number] date:mount given:0.5mlRoute: IMSite given:left deltoidGiven by: JUNE Quiroga Eprescribed prescriptions On: 07-Apr-2012 Intent (G8553)By: Fast DO, Karin A Fast DO, Karin A PNEUM VAC ADLT/IMUMNOSPR, On: 07-Apr-2012 Intent SBC/INTRM ([id number])By: Pedro, Comments: received in 2010 from [facility] [...] hyperlipidemia : DISCONTINUED - METABOLIC PANEL, COMPREHENSIVE (07781) Indication: Mixed hyperlipidemia Body mass index (BMI) [...] some irritaiton-[facility], Non-smoker, Body [...] throat. Note for Earache: Pt went to [facility] on tuesday evening. 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- bowels are regular- no blood- [...] one wants her to have estrogen- 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 business process modeler of fered low dose prozac- she didnt do - paxil made her feel terrible- zoloft made her tired - never tried cymbalta ??and is willing - she sees Jasvir Cardoza for her ra and on orencia and doing well- and mauro s appt in march with Guera Clifford- at [facility]- no target organ damge and dx age 8 with dm- and ra was diagnosed 45Encounter Diagnosis: Arthritis, rheumatoid (714.0), Anxiety (300.00), Osteopenia (733.90), Hyperlipidemia, Mixed (272.2), Hypothyroidism (244.9), Diabetes, Type I, contolled (250.01), Menopause (627.2) [facility] Payers Sandy GRIDER/REDD HENNING; a guarantor
--- OUTSIDE RECORDS SUMMARY | 2018-10-30 02:16 | XMS RPT_ITS | Continuity of Care Document ---
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 [place], [place] [address] Fax [facility] MR#: [id number] Acct: [id number] Name: CHELSEA HENNING Rep #: [id number] : 1960 57 From: Kiki Thomas DPT Referring Dr.: Karin Khanna DO Status: REG RCR Insurance: ANT HEM SELF PAY INSURANCE Karin Khanna DO, It has been my pleasure to treat CHELSEA HENNING over the last 8 visits for Cervical Radiculopathy. Please see the progress note below for an update on the [facility] therapy plan of care! Subjective: Patient [...] in available range, elbow 4+/5, Wrist: 4+/5, Washcloth Folder: diminshed but equal the other side. Reflex: [...] do not hesitate to contact me at [phone] by phone or if you have questions or concerns regarding this new plan of care! Sincerely, Kiki Thomas, DPT <Elec tronically signed by Kiki Thomas DPT> 07/28/18 1058 CC: Karin Khanna DO ELR Signed For Medicare only, by signing this I certify the plan of care. Physicians Signature Date 10-Jul-2018 Inital Evaluation (1) - PT Result: Comments: See Note; NOTES: [facility] [address] [place] [address] Fax REHABILITATION SERVICES INITIAL EVALUATION MR#: [id number] Acct: [id number] Name: CHELSEA HENNING Rep #: [id number] [...] her neck. Tried to have massage at [facility] which made it feel better but then had another 1 and felt ho rrible by another massage therapist then back to origional then it was okay again. Swathi who is a SENIOR CAPITAL MARKETS SPECIALIST told her to hold off on the [...] in available range, elbow 4/5, Wrist: 4/5, Washcloth Folder: diminshed but eq ual the other side. [...] to be FAXED BACK to us at [phone] for Medicare purposes. For Medicare only, by signing this I certify the plan of care. Please let me know if there are questions or concerns regarding this plan of care. Physician Signature: Date: <Electronica zach signed by Kiki Thomas DPT> 07/10/18 1051 CC: Karin Khanna DO ELR Signed 21-Jun-2018 Cerv Spine 4 or 5 Views Result: Comments: See Note; NOTES: [facility] Imaging Services [address] [place] [address] Cerv Spine 4 or 5 Views MR#: [id number] Acct: [id number] Name: CHELSEA HENNING Rep #: [id number] : 1960 F 57 From: Silvano Decker MD PCP: Karin Khanna DO Status: REG CLI Study: Cerv Spine 4 or 5 Views Date of Exam: 06/21/18 Exam# [id number] Ordering Dr: Karin Khanna DO STUDY: X-RAY [...] Service support , CC: Karin Khanna DO Signing Agent: Signed 21-Jun-2018 Ribs Uni Min 3V w/PA Chest Result: Comments: See Note; NOTES: [facility] Imaging Services [address] [place] [address] Ribs Uni Min 3V w/PA Chest MR#: [id number] Acct: [id number] Name: CHELSEA HENNING Rep #: [id number] : 1960 F 57 From: Silvano Decker MD PCP: Karin Khanna DO Status: REG CLI Study: Ribs Uni Min 3V w/PA Chest Date of Exam: 06/21/18 Exam# [id number] Ordering Dr: Karin Khanna DO STUDY: X-R [...] Silvano Decker, at 17:51 EST Tel [phone], Service support , CC: Karin Khanna DO Signing Agent: Signed 01-Nov-2017 SCREENING MAMM (CAD), BILAT Result: Comments: See Note; NOTES: [facility] Imaging Services [address] [place] [address] SCREENING MAMM (CAD), BILAT MR#: [id number] Acct: [id number] Name: CHELSEA HENNING Rep #: [id number] : 1960 F 56 From: Chris Bullock MD PCP: Karin Khanna DO Status: REG CLI Study: SCREENING MAMM (CAD), BILAT Date of Exam: 11/01/17 Exam# [id number] Ordering Dr: Karin Khanna DO MAMMOGRAPH Y [...] Service support , CC: Karin Khanna DO Signing Agent: Signed 01-Nov-2017 Thyroid Result: Comments: See Note; NOTES: [facility] Imaging Services [address] [place], [place] [address] [address] Thyroid MR#: [id number] Acct: [id number] Name: CHELSEA HENNING Rep #: [id number] : [birth year] F 56 From: Rajeev Farias DO PCP: Karin Khanna DO Status: REG CLI Study: Thyroid Date of Exam: 11/01/17 Exam# [id number] Ordering Dr: Karin Khanna DO STUDY: THYROID [...] Signed: Aaron Fraire at 16:25 EDT Tel [phone], Service support , CC: Karin Khanna DO Signing Agent: Signed 26-Oct-2017 Stress Report Result: Comments: See Note; NOTES: [facility] Cardiovascular Services [address] [place] [address] MR#: [id number] Acct: [id number] Name: JUVENCIOILAN THOMPSONMikey Cutler Rep #: [id number] : 1960 56 From: Romel Martinez MD [...] DO Date Dictated: 10/26/17913 Date Transcribed: 10/26/17913 Signing Agent: CO Signed 08-Apr-2017 Foot min 3 Views Result: Comments: See Note; NOTES: [facility] Imaging Services [address] [place] [address] Foot min 3 Views MR#: [id number] Acct: [id number] Name: CHELSEA HENNING Rep #: [id number] : 1960 F 56 From: Rajiv Shanks MD PCP: Karin Khanna DO Status: REG CLI Study: Foot min 3 Views Date of Exam: 04/08/17 Exam# [id number] Ordering Dr: Kairn Khanna DO STUDY: X-RAY - LEFT FOOT [...] support , Fax CC: Karin Khanna DO Signing Agent: Signed 02-Mar-2017 Thoracic Spine 3 Views Result: Comments: See Note; NOTES: [facility] Imaging Services [address] [place] [address] Verdana 4d Thoracic Spine 3 Views MR#: [id number] Acct: [id number] Name: CHELSEA HENNING Rep #: [id number] : 1960 F 56 From: Yoan Gray MD PCP: Karin Khanna DO Status: REG CLI Study: Thoracic Spine 3 Views Date of Exam: 03/02/17 Exam# [id number] Ordering Dr: Karin Khanna DO STUDY : [...] Service support , CC: Karin Khanna DO Signing Agent: Signed 23-Feb-2017 NCS and/or EMG Patient Result: Comments: See Note; NOTES: [facility] Pulmonary Services/Neurology [address] [place] [address] MR#: [id number] Acct: [id number] Name: CHELSEA HENNING Rep #: [id number] : 04/1961 56 From: Radha Hoover MD Referring Dr: Dione Guerra SENIOR [employer] SPECIALIST-C Status: REG CLI Ordering Dr: Date: Location: [facility] Sex: F C NCS and/or EMG [...] DO Date Dictated: 02/23/1734 Date Transcribed: 02/23/17833 Signing Agent: AA Signed 03-Feb-2017 Abdomen Limited Result: Comments: See Note; NOTES: [facility] Imaging Services [address] [place] [address] Verdana 4d Abdomen Limited MR#: [id number] Acct: [id number] Name: JUVENCIOCHELSEA Rep #: [id number] : 1960 F 56 From: Salvador Pike MD PCP: Karin Khanna DO Status: REG CLI Study: Abdomen Limited Date of Exam: 02/03/17 Exam# [id number] Ordering Dr: Karin Khanna DO STUDY: ABDOMINAL [...] Salvador Pike MD at 14:21 EDT Tel [phone], Service support , CC: Karin Khanna DO Signing Agent: Signed 10-Nov-2016 Breast w/o and/or W Cont Bilat Result: Comments: See Note; NOTES: [facility] Imaging Services [address] [place] [address] Verdana 4d Breast w/o and/or W Cont Bilat MR#: [id number] Acct: [id number] Name: CATHERINE HENNING E Rep #: [id number] : 1960 F 55 From: Terrell Schroeder MD PCP: Karin Khanna DO Status: REG CLI Study: Breast w/o and/or W Cont Bilat Date of Exam: 11/10/16 Exam# [id number] Ordering Dr: Karin Khanna DO STUDY: BILATERAL [...] MD at 16:15 EDT , Service support [phone], CC: Karin Khanna DO Signing Agent: Signed 29-Oct-2016 Breast Limited Unilateral Result: Comments: See Note; NOTES: [facility] Imaging Services [address] [place] [address] Verdana 4d Breast Limited Unilateral MR#: [id number] Acct: [id number] Name: CHELSEA HENNING Rep #: [id number] : 1960 F 55 From: Salvador Pike MD PCP: Keena Thomas DO Status: REG CLI Study: Breast Limited Unilateral Date of Exam: 10/29/16 Exam# [id number] Ordering Dr: Zak Khanna DO STUDY: ULTRASOUND [...] Pike MD 2 at 15:27 EDT Tel [phone], Service support [phone], CC: Karin Khanna DO; Keena Thomas DO Signing Agent: Signed 29-Oct-2016 DIAG MAMM W/CAD, BILAT Result: Comments: See Note; NOTES: [facility] Imaging Services [address] [place] [address] Verdana 4d DIAG MAMM W/CAD, BILAT MR#: [id number] Acct: [id number] Name: CHELSEA HENNING Rep #: [id number] : 1960 F 55 From: Salvador Pike MD PCP: Keena Thomas DO Status: REG CLI Study: DIAG MAMM W/CAD, BILAT Date of Exam: 10/29/16 Exam# [id number] Ordering Dr: Karin Khanna DO MAMMOGRAPHY - [...] Helio Pike MD at 14:53 EDT Tel [phone], Service support [phone], CC: Karin Khanna DO; Keena Thomas DO Signing Agent: Signed 26-Oct-2016 Thyroid Result: Comments: See Note; NOTES: [facility] Imaging Services [address] [place] [address] Verdana 4d Thyroid MR#: [id number] Acct: [id number] Name: CHELSEA HENNING He Rep #: [id number] D OB: 1960 F 55 From: Windy Hill MD PCP: Karin Khanna DO Status: REG CLI Study: Thyroid Date of Exam: 10/26/16 Exam# [id number] Ordering Dr: Karin Khanna DO STUDY: THYROID [...] upper pole nodule not substantially changed on shls-iy-lwrw comparison from November 23, 2013. 5 x 4 x 3 mm solid upper pole nodule of the left thyroid not substantially changed on iqsl-dq-udjz comparison from November 23, 2013. Electronically Signed: Windy Hill MD at 15:40 EDT , Service support [phone], CC: Karin Khanna DO Signing Agent: Signed 30-Sep-2016 Dexa Bone Density Study (HP) Result: Comments: See Note; NOTES: [facility] Imaging Services [address] [place] [address] Verdana 4d Dexa Bone Density Study (HP) MR#: [id number] Acct: [id number] Name: CHELSEA HENNING Rep #: [id number] : 1960 F 55 From: Salvador Pike MD PCP: Keena Thomas DO Status: REG CLI Study: Dexa Bone Density Study (HP) Date of Exam: 09/30/16 Exam# [id number] Ordering Dr: Linnea Ricardo Out o. STUDY: [...] Salvador Pike MD at 13:49 EST Tel [phone], Service support [phone], Fax CC: Dione Guerra; Keena Thomas DO; OUT OF TOWN DOCTOR Signing Agent: Signed 16-Sep-2016 Emergency Department Summary Result: Comments: See Note; NOTES: [facility] Medical Records Department [address] [place] [address] Emergency Department Summary MR#: [id number] Acct: [id number] Name: CHELSEA HENNING Rep #: [id number] : 1960 55 From: Billy Varela DO [...] plaster, AP splint and she was given [place]. Follow up will be with orthopedics. CLINICAL IMPRESSION: 1. Right distal radius fracture. 2. Splint by physician. Billy Varela DO T: NTS JOB: [id number] 09/16/16 2335 <Electronically signed by Billy Varela DO> Date Billy Varela DO Cosigner Signature (If Indicated): Date CC: Keena Thomas DO Date Dictated: 09/16/161905 Date Transcribed: 09/16/161905 Signing Agent: Signed 16-Sep-2016 Discharge Instruction Result: Comments: See Note; NOTES: [facility] Medical Records Department [address] [place] [address] Discharge Instruction 09/16/161909 MR#: [id number] Acct: [id number] Name: CHELSEA HENNING Rep #: [id number] : 1960 55 From: Billy Varela DO [...] your Primary Care Provider. Call Doctors Registry ([phone]) or report to the closest Emergency Room. Call 911 if necessary. 09/16/16 191 & amp;#60;Electronically signed by Billy Varela DO> Date Billy Varela DO Cosigner Signature (If Indicated): Date CC: Keena Thomas DO 16-Sep-2016 Discharge Instruction Result: Comments: See Note; NOTES: [facility] Medical Records Department [address] [place] [address] Discharge Instruction 09/16/16 190 MR#: [id number] Acct: [id number] Name: CHELSEA HENNING Rep #: [id number] : 1960 55 From: Billy Varela DO PCP: Keena Thomas DO Status: PRE ER ED Disposition - Plan for ED Patient: Disposition: Home or Assisted Living Chief Complaint: U pper Extremity Injury Instructions: ED Fx Wrist General Prescriptions: Hydrocodone Bitart/Apap 5-325 [[place] 5/325] 1 - 2 tablet PO Q4H [...] your Primary Care Provider. Call Doctors Registry ([phone]) or report to the closest Emergency Room. Call [phone] if necessary. 09/16/16 190 <Electronically signed by Billy Varela DO> Date Billy Varela DO Cosigner Signature (If Indicated): Date CC: Keena Thomas DO 16-Sep-2016 Wrist min 3 Views Result: Comments: See Note; NOTES: [facility] Imaging Services [address] [place] [address] Verdana 4d Wrist min 3 Views MR#: [id number] Acct: [id number] Name: CHELSEA HENNING Rep #: [id number] : 1960 F 55 From: Renato Maria MD PCP: Keena Thomas DO Status: REG ER Study: Wrist min 3 Views Date of Exam: 09/16/16 Exam# [id number] Ordering Dr: Billy Varela DO STUDY: X-RA [...] MD at 19:21 EST , Service support [phone], CC: Billy Varela DO; Keena Thomas DO Signing Agent: Signed 13-Sep-2016 Chest PA and Lateral Result: Comments: See Note; NOTES: [facility] Imaging Services [address] [place] [address] Verdana 4d Chest PA and Lateral MR#: [id number] Acct: [id number] Name: CHELSEA HENNING Rep # : [id number] : 1960 F 55 From: Salvador Pike MD PCP: Keena Thomas DO Status: REG CLI Study: Chest PA and Lateral Date of Exam: 09/13/16 Exam# [id number] Ordering Dr: Keena Thomas DO STUDY: X-RAY [...] Salvador Pike MD at 11:36 EST Tel [phone], Service support [phone], CC: Keena Thomas DO Signing Agent: Signed 29-Mar-2016 Discharge Instruction Result: Comments: See Note; NOTES: [facility] Medical Records Department [address] [place] [address] Discharge Instruction 03/27/16 1521 MR#: [id number] Acct: [id number] Name: CHELSEA HENNING Rep #: [id number] : 1960 55 From: Marques Hutchison MD [...] or any unexpected problems, contact your doctor. [facility] Doctors Registry ([phone]) or report to the closest Emergency Room. Call 911 if necessary. 03/29/16 0715 <Electronically signed by Marques Hutchison MD> Date Marques Hutchison MD Cosigner Signature (If Indicated): Date CC: Keena Thomas DO 29-Mar-2016 Emergency Department Summary Result: Comments: See Note; NOTES: [facility] Medical Records Department [address] [place] [address] Emergency Department Summary MR#: [id number] Acct: [id number] Name: CHELSEA HENNING Rep #: [id number] : 1960 55 From: Marques Hutchison MD [...] Marques Hutchison MD T: [facility] JOB: [id number] 03/29/16 0715 <Electronically signed by Marques Hutchison MD> Date Marques Hutchison MD Cosigner Signature (If Indicated): Date CC: Keena Thomas DO Date Dictated: 03/09 1524 Date Transcribed: 03/27/16 152 Signing Agent: Signed 27-Mar-2016 Sinus/Facial Bone Result: Comments: See Note; NOTES: [facility] Imaging Services [address] [place] [address] Verdana 4d Sinus/Facial Bone MR#: [id number] Acct: [id number] Name: CHELSEA HENNING Rep #: [id number] : 1960 F 55 From: Manolo Rodriguez MD PCP: Keena Thomas DO Status: REG ER Study: Sinus/Facial Bone Date of Exam: 03/27/16 Exam# [id number] Ordering Dr: Marques Hutchison MD STUDY: CT [...] at 15:14 EDT Tel , Service support [phone], CC: Keena Thomas DO; Marques Hutchison MD Signing Agent: Signed 27-Mar-2016 Wrist min 3 Views Result: Comments: See Note; NOTES: [facility] Imaging Services [address] [place] [address] Verdana 4d Wrist min 3 Views MR#: [id number] Acct: [id number] Name: CHELSEA HENNING Rep #: [id number] : 1960 F 55 From: Manolo Rodriguez MD PCP: Keena Thomas DO Status: REG ER Study: Wrist min 3 Views Date of Exam: 03/27/16 Exam# [id number] Ordering Dr: Marques Hutchison MD STUDY: X-R [...] at 15:15 EDT Tel , Service support [phone], Fax CC: Keena Thomas DO; Marques Hutchison MD Signing Agent: Signed 09-Dec-2015 Chest PA and Lateral Result: Comments: See Note; NOTES: [facility] Imaging Services [address] [place] [address] Verda 4d Chest PA and Lateral MR#: [id number] Acct: [id number] Name: CHELSEA HENNING Rep #: [id number] : 1960 F 55 From: Halima Hook MD PCP: Karni Khanna DO Status: REG CLI Study: Chest PA and Lateral Date of Exam: 12/09/15 Exam# [id number] Ordering Dr: Karin Khanna O STUDY: X-RAY [...] at 11:50 EDT Tel , Service support [phone], RAD/Chest PA and Lateral IMPRESSION: There is no acute chest disease. Electronically Signed: Halima Hook MD at 11:50 EDT Tel , Service support [phone], CC: Karin Khanna DO Signing Agent: Signed 05-Mar-2015 Upper Ext Joint Only W/WO Cont Result: Comments: See Note; NOTES: [facility] Imaging Services [address] [place] [address] MRI Report MR#: [id number] Acct: [id number] Name: JUVENCIOILAN THOMPSONMikey Cutler Rep #: [id number] OB: 1960 F 54 From: Manolo James MD PCP: Karin Khanna DO Status: REG CLI Study: Upper Ext Joint Only W/WO Cont Date of Exam: 03/05/15 Exam# [id number] Ordering Dr: Lashonda Butler STUDY: MRI LE [...] at 11:09 EDT Tel , Service support [phone], CC: LASHONDA BUTLER; Venus Khanna DO Signing Agent: Signed 05-Feb-2015 OT Discharge Summary Result: Comments: See Note; NOTES: [facility] [address] [place] [address]. [address] [place] [address] Fax REHABILITATION SERV ICES DISCHARGE SUMMARY MR#: [id number] Acct: [id number] Name: CHELSEA HENNING Rep #: [id number] : 1960 54 From: Citlaly Moctezuma Referring [...] elbow and soreness in left wrist, decreased inventory clerk and pinch strength in left hand, [...] degrees, left elbow flexion 135 degrees, left inventory clerk st rength 45 pounds. Chelsea has currently plateaued Her strength has greatly improved and she is using the static progressive brace consistently at home. The plan is to have her keep using the brace until so she no longer feels a stretch. Therefore, she will be discharged from occupational therapy. Citlaly Moctezuma OTR/L T: SHAE JOB: [id number] <Electronically signed by Citlaly Merino cki > 02/05/15 1304 CC: Signed 29-Nov-2014 Lumbar Spine 2 or 3 Views Result: Comments: See Note; NOTES: [facility] Imaging Services [address] [place] [address] Radiology Report MR#: [id number] Acct: [id number] Name: CHELSEA HENNING Rep #: [id number] : 1960 F 54 From: Renato Maria MD PCP: Karin Khanna DO Status: REG CLI Study: Lumbar Spine 2 or 3 Views Date of Exam: 11/29/14 Exam# [id number] Ordering Dr: JASVIR CARDOZA STUDY: X-RAY - [...] MD at 10:23 EDT , Service support [phone], CC: Karin Khanna DO; JASVIR CARDOZA Signing Agent: Signed 04-Sep-2014 Dexa Bone Density Study (HP) Result: Comments: See Note; NOTES: [facility] Imaging Services [address] [place] [address] Bone Density Report MR#: [id number] Acct: [id number] Name: CHELSEA HENNING Rep #: [id number] : 1960 F 53 From: Salvador Pike MD PCP: Karin Khanna DO Status: REG CLI Study: Dexa Bone Density Study (HP) Date of Exam: 09/04/14 Exam# [id number] Ordering Dr: Karin Khanna DO STUDY: DUAL [...] Salvador Pike MD at 12:33 EST Tel [phone], Service support [phone], CC: Karin Khanna DO Signing Agent: Signed 04-Sep-2014 Dexa Bone Density Study (HP) Result: Comments: See Note; NOTES: [facility] Imaging Services [address] [place] [address] Bone Density Report MR#: [id number] Acct: [id number] Name: CHELSEA HENNING Rep #: [id number] : 1960 F 53 From: Salvador Pike MD PCP: Karin Khanna DO Status: REG CLI Study: Dexa Bone Density Study (HP) Date of Exam: 09/04/14 Exam# [id number] Ordering Dr: Karin Khanna DO ADDENDUM by Salvador Pike MD on 09/10/14 at 1026 ADDENDUM This is an addendum report Com parison is made with prior outside examination dated February 04, 2012. Since prior examination, there has been a decrease in the bone density of the proximal left femur of 7.9%. Electronically Signed: Salvador Pike MD at 10:26 EST Tel [phone], Service support [phone], 09/10/14 1026 Date cc: Karin Khanna DO [...] Salvador Pike MD at 12:33 EST Tel [phone], Service support [phone], CC: Karin Khanna DO Signing Agent: Signed 16-Jul-2014 Initial Evaluation - OT Result: Comments: See Note; NOTES: [facility] Occupational Therapy [address] [place], [place] [address] Fax REHABILITATION SERVI [facility] INITIAL EVALUATION MR#: [id number] Acct: [id number] Name: CHELSEA HENNING Rep #: [id number] : 1960 53 From: Citlaly Moctezuma Referring [...] visits. 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 At the [...] and thumb movements were within functional limits. Washcloth Folder strength in right hand was 50 degrees [...] w and soreness in left wrist, decreased inventory clerk and pinch strength in left hand, [...] by discharge. 2. 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 Citlaly Moctezuma, OTR/L T: NTS JOB: [id number] <Electronically signed by Citlaly Moctezuma > 1 09/16/13 0852 CC: Signed For Medicare only, by signing this I certify the plan of care. Physicians Signature Date 01-Jan-2014 Abdomen/Pelvis without Cont Result: Comments: See Note; NOTES: [facility] Imaging Services [facility] [place] [address] CAT Scan Report MR#: [id number] Acct: [id number] Name: CHELSEA HENNING Rep #: [id number] : 1960 F 53 From: Sid Conklin MD PCP: Karin Khanna DO Status: REG CLI Study: Abdomen/Pelvis without Cont Date of Exam: 01/01/14 Exam# [id number] Ordering Dr: Roseanne Liu MD STUDY : [...] at 16:49 EDT Tel , Service support [phone], CC: Roseanne Liu MD; Karin Khanna DO Signing Agent: Signed 27-Dec-2013 Kidney and Bladder Result: Comments: See Note; NOTES: [facility] Imaging Services [address] [place] [address] Ultrasound Report MR#: [id number] Acct: [id number] Name: CHELSEA HENNING Rep #: [id number] : 1960 F 53 From: Rajeev Farias DO PCP: Karin Khanna DO Status: REG CLI Study: Kidney and Bladder Date of Exam: 12/27/13 Exam# [id number] Ordering Dr: Karin Khanna DO STUDY: RENAL [...] Brown DO chito at 19:47 EDT Tel [phone], Service support [phone], CC: Karin Khanna DO Signing Agent: Signed 27-Dec-2013 L/S Spine Min 4 Views Result: Comments: See Note; NOTES: [facility] Imaging Services [address] [place] [address] Radiology Report MR#: [id number] Acct: [id number] Name: CHELSEA HENNING Rep #: [id number] : 1960 F 53 From: Rajeev Barryon PCP: Karin Khanna DO Status: REG CLI Study: L/S Spine Min 4 Views Date of Exam: 12/27/13 Exam# [id number] Ordering Dr: Karin Khanna DO STUDY: X-RAY [...] Farias DO at 20 :52 EDT Tel [phone], Service support [phone], CC: Karin Khanna DO Signing Agent: Signed 23-Nov-2013 Esophagus Only Result: Comments: See Note; NOTES: [facility] Imaging Services [address] [place] [address] Radiology Report MR#: [id number] Acct: [id number] Name: CHELSEA HENNING Rep #: [id number] : 1960 F 53 From: Salvador Pike MD PCP: Karin Khanna DO Status: REG CLI Study: Esophagus Only Date of Exam: 11/23/13 Exam# [id number] Ordering Dr: Karin Khanna DO STUDY: X-RAY [...] the gastroesophag eal CC: Karin Khanna DO Signing Agent: Signed 23-Nov-2013 Thyroid Result: Comments: See Note; NOTES: [facility] Imaging Services [address] [place] [address] Ultrasound Report MR#: [id number] Acct: [id number] Name: CHELSEA HENNING Rep #: [id number] : 1960 F 53 From: Salvador Pike MD PCP: Karin Khanna DO Status: REG CLI Study: Thyroid Date of Exam: 11/23/13 Exam# [id number] Ordering Dr: Karin Khanna DO STUDY: THYROID [...] Salvador Pike MD at 12:56 EDT Tel [phone], Service support [phone], CC: Karin Khanna DO Signing Agent: Signed Family History Unknown Family Member Name [...] 1.63 m2 Results Date Description Value Details [id number]-330351:04 RHEUMATOID FACTOR-QUANT Comments: PATIENT NOT FASTINGPERFORMED BY: [address] [id number] BY: [address] [id number] ([id number]) RA Latex Turbid. 19.3 {IU/mL} (Abnormal) Range: 0.0-13.9 84-Klh-002073:04 CCP ANTIBODY (61166) Comments: PATIENT NOT FASTINGPERFORMED BY: [address] [id number] BY: [address] [id number] CCP Antibodies IgG/IgA >250 {units} (Abnormal) Range: 0-19 Comments: Negative <20 Weak positive 20 - 39 Moderate positive 40 - 59 Strong positive >59 08-Pia-927269:04 C-REACTIVE PROTEIN Comments: PATIENT NOT FASTINGPERFORMED BY: [address] [id number] BY: [address] [id number] (81467) C-Reactive Protein, Quant 4.1 mg/L (Normal) Range: 0.0-4.9 44-Ooa-219860:04 SED RATE ERYTHROCYTE Comments: PATIENT NOT FASTINGPERFORMED BY: [address] [id number] BY: [address] [id number] (64081) Sedimentation Rate-Westergren 2 mm/h (Normal) Range: 0-40 46-Sew-842858:14 Alanine Aminotransferas (SGPT) Comments: [facility] Wgzquxklud6423 [address] [place], [place], [id number] ALT 26 U/L (Normal) Range: 13-56 08-Hjf-176686:14 AST(SGOT) Comments: [facility] Tpgipjpsck5089 [address]. [place], [address] AST 20 U/L (Normal) Range: 15-37 31-Doj-597333:14 Basic Metabolic Profile (BMP) Comments: [facility] Seepnoaoas[address] [place], [address] GAP 7 (Normal) Range: 5-15 CO2 31.0 [...] A.D.A. criteria.Please note revised GLUCOSE reference range fspasdfgs68/02/2018. 02-Con-403149:14 Hemoglobin A1c Comments: [facility] Sbuksxrqxy5730 [address]. [place], [place], [address] HGB A1C 6.6 % (Abnormal) Range: 4.2-6.3 29-Kwp-712515:14 Lipid Profile Comments: [facility] Cajatfjxdx4977 [place], [address] VLDL 7 mg/dL (Normal) Range: 5-40 LDL [...] 200-240 mg/dL Borderline >240 mg/dL High Risk 88-Fcv-093844:14 T4 Free Direct Comments: [facility] Mnvsfljwnz5332 [address] [place], [address]66[address] T4 FREE DIRECT 1.20 ng/dL (Normal) Range: 0.76-1.46 77-Zdy-225771:14 Thyroid Stim Hormone (TSH) Comments: [facility] Tmhbndwqqs2053 [address] [place], [address] TSH 1.94 {uIU/mL} (Normal) Range: 0.358-3.74 12-Mkz-158665:14 Vitamin B12 1757 pg/mL (Abnormal) Comments: [facility] Kgxogzmkkq2607 [address] [place], [address] Range: 211-911 40-Dlz-713028:14 Vitamin D,25 Hydroxy Comments: [facility] Xuaubezdvw5645 [address] [place], [address] Vitamin D 25-OH 63.2 ng/mL (Normal) Range: 29.95-100.01 Comments: Vitamin D 25(OH) Status Range Deficiency <20 ng/mL (50nmol/L) Insuffciency 20 - 30 ng/mL (50 - 75 nmol/L) Sufficiency 30 - 100 ng/mL (75 - 250 nmol/L) Toxicity >100 ng/mL (>250 nmol/L) :43 Alanine Aminotransferas (SGPT) Comments: [facility] Mrftsvsoab3681 [address] [place], 2712[address] ALT 33 U/L (Normal) Range: 13-56 :43 AST(SGOT) Comments: [facility] Kqdywwlmal3450 [address] [place], [address] AST 22 U/L (Normal) Range: 15-37 :43 Basic Metabolic Profile (BMP) Comments: [facility] Robkndgeql9660[address]ly [place], [address] GAP 7 (Normal) Range: 5-15 CO2 32.0 [...] suggests HYPOGLYCEMIA.Please note revised GLUCOSE reference range dgexvxcjq38/02/2018. :43 Hemoglobin A1c Comments: [facility] Yzjwacpohp1545 [address] [place], [address] HGB A1C 6.8 % (Abnormal) Range: 4.2-6.3 :43 Lipid Profile Comments: [facility] Sgkhzvwfts0569 [address] [place], [address] VLDL 7 mg/dL (Normal) Range: 5-40 LDL [...] High Risk :43 T4 Free Direct Comments: [facility] Qoyspzqlzm1910 [address] [place], [address] T4 FREE DIRECT 1.25 ng/dL (Normal) Range: 0.76-1.46 :43 Thyroid Stim Hormone (TSH) Comments: [facility] Yyrgyaviib7666 [address]. [place], [address] TSH 2.08 {uIU/mL} (Normal) Range: 0.358-3.74 :43 Vitamin B12 1996 pg/mL (Abnormal) Comments: [facility] Isfxsgbagk2978 [address] [place], 218721 Range: 211-911 :43 Vitamin D,25 Hydroxy Comments: [facility] Nblro[address]ml[address] [place], [address] Vitamin D 25-OH 66.0 ng/mL (Normal) Range: 29.95-100.01 Comments: Vitamin D 25(OH) Status Range Deficiency <20 ng/mL (50nmol/L) Insuffciency 20 - 30 ng/mL (50 - 75 nmol/L) Sufficiency 30 - 100 ng/mL (75 - 250 nmol/L) Toxicity >100 ng/mL (>250 nmol/L) 17-Sgd-442323:42 TSH (92825) Comments: PATIENT NOT FASTINGPERFORMED BY: [place] [id number] TSH 1.190 {uIU/mL} (Normal) Range: 0.450-4.500 75-Afa-317141:42 T3, FREE (TRIDOTHYRONINE) (96293) Comments: PATIENT NOT FASTINGPERFORMED BY: [place]pot[place]ublin [place] [id number] Triiodothyronine (T3), Free 2.1 pg/mL (Normal) Range: 2.0-4.4 40-Utf-056100:42 T4, FREE (THYROXINE) (00056) Comments: PATIENT NOT FASTINGPERFORMED BY: DARREN [facility] Qvtklg9821 [facility] [id number] T4,Free(Direct) 1.68 ng/dL (Normal) Range: 0.82-1.77 :38 Alanine Aminotransferas (SGPT) Comments: [facility] Vsfbmutmiw[address] [place], [place], [address](931) ALT 26 U/L (Normal) Range: 13-56 :38 AST(SGOT) Comments: [facility] Lfquasvaro74[address] [place], [place], [address]136(400) AST 23 U/L (Normal) Range: 15-37 :38 Basic Metabolic Profile (BMP) Comments: [facility] Iyafnhinci[address] [place], [place], [address] GAP 7 (Normal) Range: 5-15 CO2 29.0 [...] A.D.A. criteria.Please note revised GLUCOSE reference range ungbqzbuq30/02/2018. :38 Hemoglobin A1c Comments: [facility] Vxnsboidle[address] [place], [address] HGB A1C 7.1 % (Abnormal) Range: 4.2-6.3 :38 Lipid Profile Comments: [facility] Ocqhxgmwuh66[address] [place], [address] VLDL 5 mg/dL (Normal) Range: 5-40 LDL [...] High Risk :38 T4 Free Direct Comments: [facility] Pwyczfmxqq6[address] [place], [address] T4 FREE DIRECT 1.58 ng/dL (Abnormal) Range: 0.76-1.46 28-Jrn-35257:38 Thyroid Stim Hormone (TSH) Comments: [facility] Qtctbdbrpz77[address] [place], [address] TSH 0.73 {uIU/mL} (Normal) Range: 0.358-3.74 48-Kcl-757383:27 Alanine Aminotransferas (SGPT) Comments: [facility] Eptdmycswk9[address] [place], [address] ALT 27 U/L (Normal) Range: 12-78 11-Yos-483524:27 AST(SGOT) Comments: [facility] Qiqkgeynwt1172 [place], [address] AST 19 U/L (Normal) Range: 15-37 17-Wxl-086619:27 Basic Metabolic Profile (BMP) Comments: [facility] Ldhsrfdwny0421 [address] [place], [address] GAP 7 (Normal) Range: 5-15 CO2 29.0 [...] 7-18 GLU 79 mg/dL (Normal) Range: 70-110 79-Jwx-152409:27 Hemoglobin A1c Comments: [facility] Lxgcytmalv4370 [address]. [place], [address] HGB A1C 6.8 % (Abnormal) Range: 4.2-6.3 86-Nhm-257760:27 Lipid Profile Comments: [facility] Wqthggnuid3049 [address] [place], [address] VLDL 6 mg/dL (Normal) Range: 5-40 LDL [...] 200-240 mg/dL Borderline >240 mg/dL High Risk 05-Nbh-907663:27 Microalb:Creat Ratio,Random UR Comments: [facility] Ndvqpcxkii7037 [address] [place], [address] MALB:CREAT 8.2 {mg/g_CRE} (Normal) MICROALBUMIN,UR 11.5 mg/L (Normal) UR CREAT 140.00 mg/dL (Normal) 91-Upz-281065:27 T4 Free Direct Comments: [facility] Jlfqmbcaym5712 [address] [place], [address] T4 FREE DIRECT 1.20 ng/dL (Normal) Range: 0.76-1.46 20-Smn-713434:27 Thyroid Stim Hormone (TSH) Comments: [facility] Hvzqryhxct9480 [address] [place], [address] TSH 4.21 {uIU/mL} (Abnormal) Range: 0.358-3.74 58-Dbb-590299:27 Vitamin B12 763 pg/mL (Normal) Comments: [address] [place], [address] Range: 211-911 71-Klq-137764:27 Vitamin D,25 Hydroxy Comments: [facility] Pjnorypays2290 [address] [place], [address] Vitamin D 25-OH 59.2 ng/mL (Normal) Comments: Vitamin D 25(OH) Status Range Deficiency <20 ng/mL (50nmol/L) Insuffciency 20 - 30 ng/mL (50 - 75 nmol/L) Sufficiency 30 - 100 ng/mL (75 - 250 nmol/L) Toxicity >100 ng/mL (>250 nmol/L) 17-Era-828152:19 CRP Comments: [address] [place], [address] C-REACTIVE PROT < 2.90 mg/L (Normal) Range: 0.0-3.0 Comments: C-Reactive Protein (CRP) provides useful information for thediagnosis, therapy and monitoring of inflammatory processesand associated diseases. For the evaluation of Relative Riskfor Cardiovascular Dise ase, a High Sensitivity CRP (HSCRP)should be ordered. :14 CBC W/Diff, Automated Comments: [facility] Ewgvkdiilp7647 [address] [place], [place], [address] Absolute Lymph 1.38 {X10_3/ul} (Normal) Range: 0.83-4.51 [...] Range: 4.4-11.0 :14 Comprehensive Metabolic Profil Comments: [facility] Floslxccyo0162 [address] [place], [place], [address] GAP 8 (Normal) Range: 5-15 CO2 30.0 [...] 200 mg/dLsuggests DIABETES MELLITUS per A.D.A. criteria. 94-Ygy-824032:14 Erythrocyte Sed Rate Comments: [facility] Lvgtjombxi2201 [address] [place], [place], [address] SED RATE 2 mm/h (Normal) Range: 0-30 9-Oju-007452:39 Alanine Aminotransferas (SGPT) Comments: [facility] Itexxpmxgy9674 [address]. [place], [address]40[address] ALT 24 U/L (Normal) Range: 12-78 3-Nel-150831:39 AST(SGOT) Comments: [facility] Mnliruplff3146 [address]. [place], [address] AST 23 U/L (Normal) Range: 15-37 7-Vvo-533387:39 Basic Metabolic Profile (BMP) Comments: [address] [place], [address] GAP 6 (Normal) Range: 5-15 CO2 31.0 [...] 126 mg/dLsuggests DIABETES MELLITUS per A.D.A. criteria. 0-Dxc-958646:39 Hemoglobin A1c Comments: [facility] Xhzobpazyx2298 [address] [place], [address] HGB A1C 6.5 % (Abnormal) Range: 4.2-6.3 0-Pvo-435186:39 Lipid Profile Comments: [address] [place], [address] VLDL 6 mg/dL (Normal) Range: 5-40 LDL [...] 200-240 mg/dL Borderline >240 mg/dL High Risk 7-Liv-241458:39 T4 Free Direct Comments: [facility] Lalglmahdc6212 [place] [place], [place], [address] T4 FREE DIRECT 1.36 ng/dL (Normal) Range: 0.76-1.46 8-Sfw-188487:39 Thyroid Stim Hormone (TSH) Comments: [address] [place], [place], [address] TSH 3.60 {uIU/mL} (Normal) Range: 0.358-3.74 9-Ulz-998461:39 Vitamin B12 497 pg/mL (Normal) Comments: [address] [place], [address] Range: 211-911 0-Qmz-684779:39 Vitamin D,25 Hydroxy Comments: [address] [place], [place], [address] Vitamin D 25-OH 58.6 ng/mL (Normal) Comments: Vitamin D 25(OH) Status Range Deficiency <20 ng/mL (50nmol/L) Insuffciency 20 - 30 ng/mL (50 - 75 nmol/L) Sufficiency 30 - 100 ng/mL (75 - 250 nmol/L) Toxicity >100 ng/mL (>250 nmol/L) 08-Apr-20178:42 Microscopic Examination Comments: PATIENT NOT FASTINGPERFORMED BY: [facility] Shcywx2767 Bales RoadDuLifeCare Hospitals [facility] [id number] Bacteria None seen (Normal) Mucus Threads Present (Normal) Crystal Type Calcium Oxalate (Normal) Crystals Present (Abnormal) Epithelial Cells (non renal) 0-10 {/hpf} (Normal) Range: 0 - 10 RBC 0-2 {/hpf} (Normal) Range: 0 - 2 WBC 0-5 {/hpf} (Normal) Range: 0 - 5 :42 T3, FREE (TRIDOTHYRONINE) (60439) Comments: PATIENT NOT FASTINGPERFORMED BY: [facility] Tlhlgi4709 ComeksLifeCare Hospit[facility] [id number] Triiodothyronine,Free,Serum 2.4 pg/mL (Normal) Range: 2.0-4.4 :42 T4, FREE (THYROXINE) (10236) Comments: PATIENT NOT FASTINGPERFORMED BY: [facility] Znoxur4656 ComeksLifeCare Hospit[facility] [place] [id number] T4,Free(Direct) 1.70 ng/dL (Normal) Range: 0.82-1.77 :42 URINE VEE CULTURE-IDENTIFICATN Comments: PATIENT NOT FASTINGPERFORMED BY: [facility] Rpenxh6823 ComeksLifeCare Hospitals [facility] [place] [id number] (26460) Result 1 PSMS (Abnormal) Comments: Pseudomonas vivtgomtey412 Colonies/mL . S = Susceptible; I = Intermediate; R = Resistant P = Positive; N = Negative MICS are expressed in micrograms per mL Antibiotic RSLT#1 RSLT#2 RSLT#3 RSLT#4Amikacin SCefepime SCeftazidime SCiprofloxacin SGentamicin SImipenem SLevofloxacin SMeropenem SPiperacillin STica rcillin STobramycin S Urine Final report (Abnormal) Culture,Comprehensive :42 LDH (LD) (LACTATE DEHYDROGENASE) Comments: PATIENT NOT FASTINGPERFORMED BY: [facility] Przlqo1254 iyzicoLake [facility] [id number] (07440) LDH 239 [iU]/L (Abnormal) Range: 119-226 :42 SED RATE ERYTHROCYTE (85122) Comments: PATIENT NOT FASTINGPERFORMED BY: [facility] Luehcc1145 [facility] Cvgram.meLake Norman [facility] [id number] Sedimentation Rate-Westergren 2 mm/h (Normal) Range: 0-40 :42 C-REACTIVE PROTEIN (14753) Comments: PATIENT NOT FASTINGPERFORMED BY: [facility]6370 [facility] [id number] C-Reactive Protein, Quant 2.1 mg/L (Normal) Range: 0.0-4.9 :42 URINALYSIS, W/ MICRO (24568) Comments: PATIENT NOT FASTINGPERFORMED BY: [facility]6370 [facility] [id number] Microscopic Examination See below: (Normal) Comments: Microscopic was indicated and was performed. Nitrite, Urine Negative (Normal) Urobilinogen,Semi-Qn 0.2 mg/dL (Normal) Range: 0.2-1.0 Bilirubin Negative (Normal) Occult Blood Negative (Normal) Ketones Negative (Normal) Glucose Negative (Normal) Protein Negative (Normal) WBC Esterase 2+ (Abnormal) Appearance Clear (Normal) Urine-Color Yellow (Normal) pH 6.5 (Normal) Range: 5.0-7.5 Specific [place] 1.022 (Normal) Range: 1.005-1.030 :42 TSH (84186) Comments: PATIENT NOT FASTINGPERFORMED BY: [facility]6370 [facility] [id number] TSH 3.290 {uIU/mL} (Normal) Range: 0.450-4.500 :42 CBC W/AUTO DIFF WBC Comments: PATIENT NOT FASTINGPERFORMED BY: [facility]6370 [facility] [id number] Information: SRC:UC (96815) Immature Grans (Abs) 0.0 {x10E3/uL} (Normal) Range: [...] 3.77-5.28 WBC 4.7 {x10E3/uL} (Normal) Range: 3.4-10.8 82-Ymp-442145:50 Alanine Aminotransferas (SGPT) Comments: [address] [place], [place], [address] ALT 25 U/L (Normal) Range: 12-78 13-Msp-336340:50 AST(SGOT) Comments: [address] [place], [place], [address] AST 21 U/L (Normal) Range: 15-37 48-Wbj-992578:50 Basic Metabolic Profile (BMP) Comments: [address] [place], [place], [address] GAP 8 (Normal) Range: 5-15 CO2 30.0 [...] 7-18 GLU 87 mg/dL (Normal) Range: 70-110 83-Bgj-359557:50 Hemoglobin A1c Comments: [facility] Owhozzhbhi2569 [address] [place], [place], [address] HGB A1C 6.5 % (Abnormal) Range: 4.2-6.3 81-Ahx-609678:50 Lipid Profile Comments: [facility] Cxtbfsocdz9086 [address] [place], [place], [address] VLDL 7 mg/dL (Normal) Range: 5-40 LDL [...] 200-240 mg/dL Borderline >240 mg/dL High Risk 20-Etp-469777:50 T4 Free Direct Comments: [facility] Skixpddcwi3901 [address] [place], [place], [address]127[address] T4 FREE DIRECT 1.39 ng/dL (Normal) Range: 0.76-1.46 00-Rmp-902982:50 Vitamin B12 513 pg/mL (Normal) Comments: [facility] Xlqpzldvvk0099 [address] [place], [address] Range: 211-911 16-Ijb-953039:50 Vitamin D,25 Hydroxy Comments: [facility] Faqxojpelm5539 [address] [place], [address] Vitamin D 25-OH 65.2 ng/mL (Normal) Comments: Vitamin D 25(OH) Status Range Deficiency <20 ng/mL (50nmol/L) Insuffciency 20 - 30 ng/mL (50 - 75 nmol/L) Sufficiency 30 - 100 ng/mL (75 - 250 nmol/L) Toxicity >100 ng/mL (>250 nmol/L) 36-Xgc-931325:51 Rapid Flu (08756 x 2) Comments: negative Influenza A Ag neg (Normal) 83-Iea-00771:59 THROAT CULTURE (59902) Comments: PATIENT NOT FASTINGPERFORMED BY: [facility] MedicalLifeCare [facility] [id number] Information: SRC: Result 1 RRF (Normal) Comments: Routine respiratory maryam Upper Respiratory Culture Final report (Normal) 40-Wau-105178:15 PROLACTIN (57314) Comments: PATIENT NOT FASTINGPERFORMED BY: [facility] Ekahip6411 [facility] [id number] Prolactin 10.1 ng/mL (Normal) Range: 4.8-23.3 08-Oct-20168:40 Alanine Aminotransferas (SGPT) Comments: [facility] Cornavndnn15[address] [place], [address] ALT 23 U/L (Normal) Range: 12-78 08-Oct-20168:40 AST(SGOT) Comments: [facility] N[address] [place], [address] AST 22 U/L (Normal) Range: 15-37 :40 Basic Metabolic Profile (BMP) Comments: [facility] Ikmlgpcyyz6608 [address] [place], [address] GAP 9 [...] per A.D.A. criteria. :40 Hemoglobin A1c Comments: [facility] Valpbqhlol2500 [facility]. [place], [place], [address] HGB A1C 6.6 % (Abnormal) Range: 4.2-6.3 :40 Lipid Profile Comments: [facility] Osoaajtnnd1029 [facility]. [place], [place], 285[address] VLDL 7 mg/dL (Normal) Range: 5-40 LDL [...] High Risk :40 Microalb:Creat Ratio,Random UR Comments: [facility] Cgmlpxphdf4802 [address] [place], [address] MALB:CREAT 8.4 {mg/g_CRE} (Normal) MICROALBUMIN,UR 11.5 mg/L (Normal) UR CREAT 137.00 mg/dL (Normal) :40 T4 Free Direct Comments: [facility] Ppdoxvqgtp0493 [address] [place], [address] T4 FREE DIRECT 1.49 ng/dL (Abnormal) Range: 0.76-1.46 :40 Thyroid Stim Hormone (TSH) Comments: [facility] Oceurbdeyc8800 [address] [place], [address] TSH 1.79 {uIU/mL} (Normal) Range: 0.358-3.74 :40 Vitamin B12 624 pg/mL (Normal) Comments: [facility] Vbiexdzaiz4621 [address] [place], [address] Range: 211-911 :40 Vitamin D,25 Hydroxy Comments: [facility] Vjcvzbwdgx1691 [address] [place], [address] Vitamin D 25-OH 55.6 ng/mL (Normal) Comments: Vitamin D 25(OH) Status Range Deficiency <20 ng/mL (50nmol/L) Insuffciency 20 - 30 ng/mL (50 - 75 nmol/L) Sufficiency 30 - 100 ng/mL (75 - 250 nmol/L) Toxicity >100 ng/mL (>250 nmol/L) :40 Alanine Aminotransferas (SGPT) Comments: [facility] Lhpylfcjvi3461 [address] [place], [address] ALT 24 U/L (Normal) Range: 12-78 :40 AST(SGOT) Comments: [facility] Gkuwgqndhx0418 [address] [place], [address] AST 21 U/L (Normal) Range: 15-37 :40 Basic Metabolic Profile (BMP) Comments: [facility] Faqdoenokn3480 [address] [place], [place], [address] GAP 9 (Normal) Range: 5-15 CO2 29.0 [...] per A.D.A. criteria. :40 Hemoglobin A1c Comments: [facility] Prjtxiwzzr2552 [address] [place], [place], [address] HGB A1C 6.5 % (Abnormal) Range: 4.2-6.3 :40 Lipid Profile Comments: [facility] Zwbgyhxbqb7157 [address] [place], [place], [address] VLDL 5 mg/dL (Normal) Range: 5-40 LDL [...] mg/dL High Risk :40 Microalbumin,Random Urine Comments: [facility] Npkgkkgdos1530 [address] [place], [address] MICROALBUMIN,UR 13.4 mg/L (Normal) :40 T4 Free Direct Comments: [facility] Jllvtjweqd0676 [address] [place], [place], [address] T4 FREE DIRECT 1.55 ng/dL (Abnormal) Range: 0.76-1.46 :40 Thyroid Stim Hormone (TSH) Comments: [facility] Lfjbpqcuwk1737 [address] [place], [address] TSH 1.40 {uIU/mL} (Normal) Range: 0.358-3.74 :40 Vitamin B12 720 pg/mL (Normal) Comments: [facility] Qzztjhptjb6585 [place], [address] Range: 211-911 :40 Vitamin D,25 Hydroxy Comments: [facility] Mpbdkxlscw6166 [address]. [place], [place], [address]83[address] Vitamin D 25-OH 55.5 ng/mL (Normal) Comments: Vitamin D 25(OH) Status Range Deficiency <20 ng/mL (50nmol/L) Insuffciency 20 - 30 ng/mL (50 - 75 nmol/L) Sufficiency 30 - 100 ng/mL (75 - 250 nmol/L) Toxicity >100 ng/mL (>250 nmol/L) :08 Comprehensive Comments: DR KHANNA ORDERED LIPID/CMP/TSHH CHASIDY ORDERED A1C/AST/ALT/LIPID/BMP/TSH/T4F/B12/[facility]DWBar[facility] Rfrkibrfzt5849 [place], [address] Metabolic Profil [...] result less than 50 mg/dL suggests HYPOGLYCEMIA. 10-Oil-39469:08 Hemoglobin A1c Comments: DR KHANNA ORDERED LIPID/CMP/TOVA GUERRA ORDERED A1C/AST/ALT/LIPID/BMP/TSH/T4F/B12/VITDWBarney [facility] Medical [facility] Uyrwzvvljf7093 [address] [place], [place], [address] HGB A1C 6.5 % (Abnormal) Range: 4.2-6.3 :08 Lipid Profile Comments: DR KHANNA ORDERED LIPID/CMP/TOVA GUERRA ORDERED A1C/AST/ALT/LIPID/BMP/TSH/T4F/B12/[facility] Rfpbaasykd3673 [place], [address] VLDL 8 mg/dL (Normal) Range: [...] T4 Free Direct Comments: DR KHANNA ORDERED LIPID/CMP/TSHWHITFIELD MEDICAL SUR[facility] HOSPITALCHASIDY ORDERED A1C/AST/ALT/LIPID/BMP/TSH/T4F/B12/[facility] Ehucmoxzzp8877 [place], [address] T4 FREE DIRECT 1.67 ng/dL (Abnormal) Range: 0.76-1.46 :08 Thyroid Stim Comments: DR KHANNA ORDERED LIPID/CMP/[facility] CHASIDY ORDERED A1C/AST/ALT/LIPID/BMP/TSH/T4F/B12/[facility]ITLakeHealth [facility] Ywhfsorfos8022 [place], [address] Hormone (TSH) TSH 0.43 {uIU/mL} (Normal) Range: 0.358-3.74 :08 Vitamin B12 622 pg/mL (Normal) Comments: DR KHANNA ORDERED LIPID/CMP/[facility] CHASIDY ORDERED A1C/AST/ALT/LIPID/BMP/TSH/T4F/B12/[facility] Ctvkmyawho2556 [place], [address] Range: 211-911 :08 Vitamin D,25 Comments: DR KHANNA ORDERED LIPID/CMP/TSHH CHASIDY ORDERED A1C/AST/ALT/LIPID/BMP/TSH/T4F/B12/[facility]ITDWBarney [facility] Lcxueomjos7131 [address] [place], [place], [address] Hydroxy Vitamin D 25-OH 52.9 ng/mL (Normal) Comments: Vitamin D 25(OH) Status Range Deficiency <20 ng/mL (50nmol/L) Insuffciency 20 - 30 ng/mL (50 - 75 nmol/L) Sufficiency 30 - 100 ng/mL (75 - 250 nmol/L) Toxicity >100 ng/mL (>250 nmol/L) :20 CBC W/Diff, Automated Comments: [facility] Hipcurwqoy1587 [address] [place], [place], [address] Absolute Lymph 1.13 {X10_3/ul} (Normal) Range: 0.83-4.51 [...] VITD B12DR.OLIVER CRP CBCD CMP [facility] Yblnflrpzr8470 [place], [address] GAP 6 (Normal) Range: 5-15 CO2 30.0 [...] MIACRE VITD B12DR.OLIVER CRP CBCD [facility] Ntfrvxnhxs4851 [place], [address] C-REACTIVE PROT < 2.90 mg/L (Normal) Range: 0.0-3.0 Comments: C-Reactive Protein (CRP) provides useful information for thediagnosis, therapy and monitoring of inflammatory processesand associated diseases. For the evaluation of Relative Riskfor Cardiovascular Dise ase, a High Sensitivity CRP (HSCRP)should be ordered. :20 Erythrocyte Sed Rate Comments: [facility] Blnbgeamvf0274 [place], [address] SED RATE 2 mm/h (Normal) Range: 0-30 :20 Hemoglobin A1c Comments: [facility] Tdyjkjskfa3015 [place], [address] HGB A1C 6.3 % (Normal) Range: 4.2-6.3 :20 Lipid Profile Comments: A1C TSH AST ALT BMP LIPID MIACRE VITD B12DR.OLIVER CRP CBCD [facility] Kiwqehfovy9573 [place], [address] VLDL 7 mg/dL (Normal) Range: [...] High Risk :20 Microalb:Creat Ratio,Random UR Comments: [facility] Qczpdevygk5110 [place], [address] MALB:CREAT 6.4 {mg/g_CRE} (Normal) MICROALBUMIN,UR 10.0 mg/L (Normal) UR CREAT 157.00 mg/dL (Normal) :20 Thyroid Stim Hormone (TSH) Comments: A1C TSH AST ALT BMP LIPID MIACRE VITD B12DR.OLIVER CRP CBCD CMP [facility] Pcl[address] [place], [address] TSH 0.54 {uIU/mL} (Normal) Range: 0.358-3.74 :20 Vitamin B12 391 pg/mL (Normal) Comments: [facility] [id number] [place], [address] Range: 211-911 :20 Vitamin D,25 Hydroxy Comments: [facility] [id number] [place], [address] Vitamin D 25-OH 55.1 ng/mL (Normal) Comments: Vitamin D 25(OH) Status Range Deficiency <20 ng/mL (50nmol/L) Insuffciency 20 - 30 ng/mL (50 - 75 nmol/L) Sufficiency 30 - 100 ng/mL (75 - 250 nmol/L) Toxicity >100 ng/mL (>250 nmol/L) [id number] Rapid Flu (38614 x 2) Influenza A Ag negative a and b (Normal) :22 Alanine Aminotransferas (SGPT) Comments: [facility] [id number] [place], [address] ALT 29 U/L (Normal) Range: 12-78 :22 AST(SGOT) Comments: [facility] [id number] [place], [address] AST 21 U/L (Normal) Range: 15-37 [id number]:22 Basic Metabolic Profile (BMP) Comments: [facility] [id number] [place], [address] GAP 6 [...] (Abnormal) Range: 70-110 :22 Hemoglobin A1c Comments: [facility] [id number] [place], [address] ; non-emergent till apt and ordered by another dr HGB A1C 6.4 % (Abnormal) Range: 4.2-6.3 :22 Lipid Profile Comments: [facility] [id number] [place], [address] VLDL 7 mg/dL (Normal) Range: [...] High Risk :22 Microalb:Creat Ratio,Random UR Comments: [facility] [id number] [place], [address] MALB:CREAT 10.6 {mg/g_CRE} (Normal) MICROALBUMIN,UR 8.2 mg/L (Normal) UR CREAT 77.60 mg/dL (Normal) :22 Thyroid Stim Hormone (TSH) Comments: [facility] Anjjgdbuot[address] [place], [address] TSH 0.88 {uIU/mL} (Normal) Range: 0.358-3.74 :22 Vitamin B12 470 pg/mL (Normal) Comments: [facility] Vlygpaunoa[address] [place], [address] Range: 211-911 :22 Vitamin D,25 Hydroxy Comments: [address] [place], [address] Vitamin D 25-OH 50.9 ng/mL (Normal) Comments: Vitamin D 25(OH) Status Range Deficiency <20 ng/mL (50nmol/L) Insuffciency 20 - 30 ng/mL (50 - 75 nmol/L) Sufficiency 30 - 100 ng/mL (75 - 250 nmol/L) Toxicity >100 ng/mL (>250 nmol/L) :46 Alanine Aminotransferas (SGPT) Comments: [address] [place], [address] ALT 30 U/L (Normal) Range: 12-78 :46 AST(SGOT) Comments: [address] [place], [address] AST 26 U/L (Normal) Range: 15-37 :46 Basic Metabolic Profile (BMP) Comments: [address] [place], [id number] GAP 7 (Normal) Range: 5-15 CO2 31.0 [...] (Normal) Range: 70-110 :46 Hemoglobin A1c Comments: [facility] Tvumpynpqe[address] [place], [place], [id number] HGB A1C 6.8 % (Abnormal) Range: 4.2-6.3 :46 Lipid Profile Comments: [facility] Nxerhouipk6542 [facility] [address] [place], [place], [id number] VLDL 6 mg/dL (Normal) Range: 5-40 LDL [...] Risk :46 Thyroid Stim Hormone (TSH) Comments: [facility] Ejtlbonpmz4648 [facility], [address] TSH 1.82 {uIU/mL} (Normal) Range: 0.358-3.74 :46 Vitamin B12 423 pg/mL (Normal) Comments: [facility] Kdkvpjelhe[address] [place], [place], [id number] Range: 211-911 89-Zvs-42853:46 Vitamin D,25 Hydroxy Comments: [facility] [address], [address] Vitamin D 25-OH 83.9 ng/mL (Normal) Comments: Vitamin D 25(OH) Status Range Deficiency <20 ng/mL (50nmol/L) Insuffciency 20 - 30 ng/mL (50 - 75 nmol/L) Sufficiency 30 - 100 ng/mL (75 - 250 nmol/L) Toxicity >100 ng/mL (>250 nmol/L) 10-Mar-20159:14 Alanine Aminotransferas (SGPT) Comments: Test performed at:[facility] Xewatdhotb9724 [place] [address] ALT 26 U/L (Normal) Range: 12-78 :14 AST(SGOT) Comments: Test performed at:[facility] Bajahgcddk5138 [place] [address] AST 20 U/L (Normal) Range: 15-37 10-Mar-20159:14 Basic Metabolic Profile (BMP) Comments: Test performed at:[facility] Ffxbtyakoc1525 [place] [address] GAP 12 (Normal) Range: 5-15 CO2 [...] Comments: Please note revised CREATININE reference range hsjruorak65/22/2015. BUN 16 mg/dL (Normal) Range: 7-18 GLU 138 mg/dL (Abnormal) Range: 70-110 Comments: Fasting Glucose result greater than or equal to 126 mg/dLsuggests DIABETES MELLITUS per A.D.A. criteria. :14 Hemoglobin A1c Comments: Test performed at:[facility] Fdfeosahuh7101 [place] [address] HGB A1C 6.6 % (Abnormal) Range: 4.2-6.3 :14 Lipid Profile Comments: Test performed at:[facility] Mitnrnnohj0195 [place] [address] VLDL 6 mg/dL (Normal) Range: 5-40 [...] Thyroid Stim Hormone (TSH) Comments: Test performed at:[facility] Dniavbmxpp5196 [place] [address] TSH 1.65 {uIU/mL} (Normal) Range: 0.358-3.74 :14 Vitamin B12 358 pg/mL (Normal) Comments: Test performed at:[facility] Vhxnqcldoy2744 [place] [address] Range: 211-911 :14 Vitamin D,25 Hydroxy Comments: Test performed at:[facility] Ztedzulbad3445 [place] [address] Vitamin D 25-OH 50.8 ng/mL (Normal) Comments: Vitamin D 25(OH) Status Range Deficiency <20 ng/mL (50nmol/L) Insuffciency 20 - 30 ng/mL (50 - 75 nmol/L) Sufficiency 30 - 100 ng/mL (75 - 250 nmol/L) Toxicity >100 ng/mL (>250 nmol/L) :33 Microalbumin,Random Urine Comments: Test performed at:[facility] Gmqiqocbhg7411 [place] [address] MICROALBUMIN,UR 10.1 mg/L (Normal) :29 Alanine Aminotransferas (SGPT) Comments: Test performed at:[facility] Jpzyqvitqc3443 [place] [address] ALT 26 U/L (Normal) Range: 12-78 :29 AST(SGOT) Comments: Test performed at:[facility] Nxutptdnum9571 [place] [address] AST 21 U/L (Normal) Range: 15-37 :29 Basic Metabolic Profile (BMP) Comments: Test performed at:[facility] Iimcvkovtz3153 [place] [address] GAP 7 (Normal) Range: 5-15 [...] Swartz. :29 Hemoglobin A1c Comments: Test performed at:[facility] Luxlmslhdf6630 [place] [address] HGB A1C 6.4 % (Abnormal) Range: 4.2-6.3 :29 Lipid Profile Comments: Test performed at:[facility] Obhnktopfh4110 [address]. [place] [id number] VLDL 4 mg/dL (Abnormal) Range: 5-40 LDL [...] Thyroid Stim Hormone (TSH) Comments: Test performed at:[facility] Dopppxyjlc7131 [address] [place] [address] TSH 2.02 {uIU/mL} (Normal) Range: 0.358-3.74 87-Tyl-56781:29 Vitamin B12 392 pg/mL (Normal) Comments: Test performed at:[facility] Uzuzevsxoh1427 [address] [place] [id number] Range: 211-911 :29 Vitamin D,25 Hydroxy Comments: Test performed at:[facility] Tjpxcwdqdd9507 [address]. [place] [id number] Vitamin D 25-OH 38.5 ng/mL (Normal) Comments: Vitamin D 25(OH) Status Range Deficiency <20 ng/mL (50nmol/L) Insuffciency 20 - 30 ng/mL (50 - 75 nmol/L) Sufficiency 30 - 100 ng/mL (75 - 250 nmol/L) Toxicity >100 ng/mL (>250 nmol/L) 9-Dtj-330321:15 Protein Electro, Random Urine Comments: PERFORMED BY: [facility] for RehabilitationGngsoe8465 [facility] [id number] Please note: SPRCS (Normal) Comments: Protein electrophoresis scan will follow via computer, mail, orcourier delivery. M-Denis, % Not Observed % (Normal) Gamma Globulin, U 27.0 % (Normal) Beta Globulin, U 46.8 % (Normal) Tihul-7-Sqrgxhtj, U 10.6 % (Normal) Jswdn-7-Bxoyfeig, U 0.0 % (Normal) Albumin, U 15.7 % (Normal) Protein,Total,Urine 9.0 mg/dL (Normal) Range: 0.0-15.0 8-Ofz-762136:15 Protein Electro.,S Comments: PERFORMED BY: DARREN [facility] [id number] Please note: SPRCS (Normal) Comments: Protein electrophoresis scan will follow via computer, mail, orcourier delivery. A/G Ratio 1.8 (Normal) Range: 0.7-2.0 Globulin, Total 2.0 g/dL (Normal) Range: 2.0-4.5 M-Denis Not Observed g/dL (Normal) Gamma Globulin 0.5 g/dL (Normal) Range: 0.5-1.6 Beta Globulin 0.7 g/dL (Normal) Range: 0.6-1.3 Ycvfx-9-Ywauxqny 0.6 g/dL (Normal) Range: 0.4-1.2 Tqfpm-7-Pgwsvtrl 0.2 g/dL (Normal) Range: 0.1-0.4 Albumin 3.7 g/dL (Normal) Range: 3.2-5.6 Protein, Total, Serum 5.7 g/dL (Abnormal) Range: 6.0-8.5 8-Dqd-280513:15 PARATHORMONE (79738) Comments: PERFORMED BY: DARREN Patientco70 [facility] [id number] PTH, Intact 17 pg/mL (Normal) Range: 15-65 2-Npp-146663:15 PHOSPHORUS (39750) Comments: PERFORMED BY: [facility] [id number] Phosphorus, Serum 3.0 mg/dL (Normal) Range: 2.5-4.5 3-Bfm-274525:50 URINE CALCIUM DIMITRY TIMED Comments: PATIENT NOT FASTINGPERFORMED BY: DARREN [facility]Life[facility] [id number] Information: [id number] START 10/06/14@930AM FINISH; non-emergent till apt 24 Hour (20167) Calcium, Urine 24hr 190.0 {mg/24_hr} (Normal) Range: 100.0-300.0 Calcium, Urine 19.0 mg/dL (Normal) :41 Alanine Aminotransferas (SGPT) Comments: Test performed at:[facility] [address] [place] [address] ALT 30 U/L (Normal) Range: 12-78 :41 AST(SGOT) Comments: Test performed at:[facility] [address]cz[address] [place] [address] AST 19 U/L (Normal) Range: 15-37 :41 Basic Metabolic Profile (BMP) Comments: Test performed at:[facility] Eehidhmnfz[address] [place] [address] ; non-emergent till apt next week [...] criteria. :41 Hemoglobin A1c Comments: Test performed at:[facility] W[address]pyfsxb[address] [place] [address] HGB A1C 6.8 % (Abnormal) Range: 4.2-6.3 Comments: ADDENDA: non-emergent till apt :41 Lipid Profile Comments: Test performed at:[facility] Izytwwzpvv2830 [place] [address] VLDL 7 mg/dL (Normal) Range: [...] Risk :41 Microalbumin,Random Urine Comments: Test performed at:[facility] O[address]vlqj[address] [place] [address] MICROALBUMIN,UR 15.3 mg/L (Normal) :41 Thyroid Stim Hormone (TSH) Comments: Test performed at:[facility] [address] [place] [address] TSH 1.22 {uIU/mL} (Normal) Range: 0.358-3.74 :41 Vitamin B12 415 pg/mL (Normal) Comments: Test performed at:[facility] [address]ydnz[address] [place] [address] Range: 211-911 :41 Vitamin D,25 Hydroxy Comments: Test performed at:[facility] [address] [place] [address] ; will review at 09/16 appt Vitamin D 25-OH 41.4 ng/mL (Normal) Comments: Vitamin D 25(OH) Status Range Deficiency <20 ng/mL (50nmol/L) Insuffciency 20 - 30 ng/mL (50 - 75 nmol/L) Sufficiency 30 - 100 ng/mL (75 - 250 nmol/L) Toxicity >100 ng/mL (>250 nmol/L) :11 Rapid Flu (57096 x 2) Influenza A Ag neg (Normal) :11 Rapid Strep Test, Office (26183) Rapid Strep Test, Office Negative (Normal) :52 [...] CHOL 159 mg/dL (Normal) Comments: <200 mg/dL Rzjlkaufz283-593 mg/dL Borderline>240 mg/dL High Risk :52 MIALB [...] <126 mg/dLsuggests IMPAIRED HOMEOSTASIS per A.D.A. criteria. 96-Wtq-21494:35 LIPID VLDL 11 mg/dL (Normal) Range: 5-40 [...] CHOL 170 mg/dL (Normal) Comments: <200 mg/dL Ofrotndjd915-096 mg/dL Borderline>240 mg/dL High Risk :35 MIACRE MIALB 6.0 mg/L (Normal) tMICROCREAT 7.0 {mg/g_CRE} (Normal) CREU 85.1 mg/dL (Normal) :35 TSH 0.31 {uIU/mL} (Abnormal) Range: 0.358-3.74 :35 VITD 87.7 mg/mL (Normal) Comments: Vitamin D 25(OH) Status RangeDeficiency <20 ng/mL (50nmol/L)Insuffciency 20 - 30 ng/mL (50 - 75 nmol/L)Sufficiency 30 - 100 ng/mL (75 - 250 nmol/L)Toxicity >100 ng/mL (>250 nmol/L) 42-Vue-03992:54 Urinalysis, Office (88803) UA - LEUKOCYTE ESTERASE Trace (Normal) UA - NITRITE Negative (Normal) URINE UROBILINGN DIMITRY TIMED Normal mg/dL (Normal) UA - PROTEIN Negative mg/dL (Normal) UA - PH 8 (Abnormal) UA - BLOOD Negative (Normal) UA - SPECIFIC GRAVITY 1.010 (Normal) UA - KETONES Negative mg/dL (Normal) UA - BILIRUBIN Negative (Normal) UA - GLUCOSE Negative (Normal) 71-Eaz-948859:00 CBCD ANC 2.2 {X10_3/uL} (Normal) Range: 2.0-7.7 [...] 4.2-5.4 WBC 4.4 K/mm3 (Normal) Range: 4.4-11.0 07-Oyl-526195:00 CMP Comments: DR. KHANNA ORDERED TSH,CMP,CBCD,MICROALBUMIN,LIPIDHEIDI BOB [...] 7-18 GLU 60 mg/dL (Abnormal) Range: 70-110 28-Lrx-922169:00 LIPID Comments: DR. KHANNA ORDERED TSH,CMP,CBCD,MICROALBUMIN,LIPIDHEOLI GUERRA CNP ORDERED TSH,T4F VLDL 5 mg/dL (Normal) Range: 5-40 HDL 72 mg/dL (Normal) Comments: Reference RangeHDL <40 mg/dL Low HDL CholesterolHDL >or= 60 mg/dL High HDL Cholesterol LDL 87 mg/dL (Normal) Range: 0-130 CHOL 164 mg/dL (Normal) Comments: <200 mg/dL Dxhovfkkf339-028 mg/dL Borderline>240 mg/dL High Risk TRIG 27 mg/dL (Normal) Range: 0-199 Comments: Serum Triglycerides Reference IntervalNormal <150 mg/dLBorderline high 150 - 199 mg/dLHigh 200 - 499 mg/ dLVery High > or = 500 mg/dL 31-Gyu-420841:00 MIACRE tMICROCREAT 12.6 {mg/g_CRE} (Normal) CREU 44.4 mg/dL (Normal) MIALB 5.6 mg/L (Normal) 85-Rbg-323800:00 T4F 1.40 ng/dL (Normal) Comments: DR. KHANNA ORDERED TSH,CMP,CBCD,MICROALBUMIN,LIPIDDIONE GUERRA CNP ORDERED TSH,T4F Range: 0.76-1.46 71-Wwn-490498:00 TSH 1.28 {uIU/mL} (Normal) Comments: DR. KHANNA ORDERED TSH,CMP,CBCD,MICROALBUMIN,LIPIDDIONE GUERRA CNP ORDERED TSH,T4F Range: 0.358-3.74 66-Cgl-144244:12 HgA1C , Office (96364) HgA1C , Office 6.9 % (Normal) Range: 4.6 - 7.1 2-Qod-570635:45 URINE VEE CULTURE-DIMITRY COL Comments: PATIENT NOT FASTINGPERFORMED BY: DARREN [facility] Inmwsv9425 [facility] [id number] Information: SRC:DEMARCUS [id number] COUNT (07154) Result 1 MUG (Normal) Comments: Mixed urogenital ikemr775 Colonies/mL Urine Culture,Comprehensive Final report (Normal) 8-Fax-506047:36 Urinalysis, Office (59407) UA - BILIRUBIN Negative (Normal) UA - BLOOD Negative (Normal) UA - GLUCOSE Moderate (Normal) UA - KETONES Negative mg/dL (Normal) UA - LEUKOCYTE ESTERASE Negative (Normal) UA - NITRITE Negative (Normal) UA - PH 6.5 (Normal) UA - PROTEIN Negative mg/dL (Normal) UA - SPECIFIC GRAVITY 1.025 (Normal) URINE UROBILINGN DIMITRY TIMED Normal mg/dL (Normal) :34 HgA1C , Office (00376) HgA1C , Office 6.4 % (Normal) Range: [...] Hill M.D.January 19, 2013 at 4:08:34 PM [id number] Signed TT/TT If you are the referring physician and would like to consult with theradiologist who provided this interpretation, jonah ansari contact Windy Bravo M.D. at [phone]. If this radiologist is unavailable, emmett directed to another radiologist to assist. If you are a patient with a question regarding this report, pl easecontactyour referring physician directly. Professional Interpretation Provided By: [employer], Phone , These documents contain legally protected and confidential healt hinformation intended only for the use of the individual or entity namedabove. If you are not the intended recipient, you are hereby notifiedthatany disclosure, copying, distribution, or other use of [facility] documents isstrictly prohibited. If you have received this information in error,pleasenotify the sender immediately and arrange for the return or destructionofthese documents. Dictated on 3 1608 by Liz CM,WindyTranscribed on 01/19/13 1610 by ITS IMPORTSign by Liz CM,Windy on 01/19/13 1611 Sign by: Windy Hill MD 6-Nsa-803438:51 EBV Acute Infection Comments: PATIENT NOT FASTINGPERFORMED BY: [facility]6370 [facility] [id number] Information: [id number] Antibodies EBV Nuclear Antigen Ab, 7.4 {AI} [...] Negative (Normal) Comments: PATIENT NOT FASTINGPERFORMED BY: [facility] Kvabbl6099 [facility] [id number] 4:51 Comments: The sensitivity of Heterophile antibody testing is 80-90%.Soco Wolfe IgM testing offers higher sensitivity. Written Authorization WAR (Normal) Comments: PATIENT NOT FASTINGPERFORMED BY: [facility]6370 [facility] [id number] 4:51 Comments: Written Authorization Received.Authorization received from AGUSTINA HARRY [id number] by Shellie Silvestre :51 TSH (03152) Comments: PATIENT NOT FASTINGPERFORMED BY: [facility]6370 [facility] [id number] TSH 0.109 {uIU/mL} (Abnormal) Range: 0.450-4.500 :51 T4, FREE (THYROXINE) Comments: PATIENT NOT FASTINGPERFORMED BY: [facility]6370 [facility] [id number] Information: [id number] (40063) T4,Free(Direct) 2.12 ng/dL (Abnormal) Range: 0.82-1.77 5-Hno-074907:51 T3, FREE (TRIDOTHYRONINE) (21146) Comments: PATIENT NOT FASTINGPERFORMED BY: [facility]CoK[facility] RehabilitationLkvoqu9003 [facility] [id number] Triiodothyronine,Free,Serum 3.1 pg/mL (Normal) Range: 2.0-4.4 5-Gux-279512:36 FOOT MIN 3 VIEWS Radiology Report See [...] Pike M.D.December 14, 2012 at 4:05:51 PM [phone] Signed GP/GP If you are the referring physician and would like to consult with theradiologist who provided this interpretation, please contact Douglas Harden at [phone]. If this radiologist is unavailable , youwill [...] 12/14/12 161 Sign by: Salvador Pike MD 4-Den-369116:35 ANKLE MIN 3 VIEWS Radiology Report See [...] Pike M.D.December 14, 2012 at 11:22:57 AM [id number] Signed GP/GP If you are the referring physician and would like to consult with theradiologist who provided this interpretation, please contact Douglas Harden at [phone]. If this radiologist is unavailable, youwi ll [...] HYPOGLYCEMIA.CRITICAL VALUE REPEATED AND VERIFIED. CALLED TO AGEYQO28/19/13 Rudy8 MANDEEP ANDERSON.RESULTS READ BACK BY SAME. :43 DDIMQ 0.30 {FEUug/mL} (Normal) Range: 0.22-0.48 Comments: NORMAL D-Dimer level indicates no DVT or PE. :43 LIPID HDL 69 mg/dL (Normal) Comments: Reference RangeHDL <40 mg/dL Low HDL CholesterolHDL >or= 60 mg/dL High HDL Cholesterol LDL 75 mg/dL (Normal) Range: 0-130 VLDL 9 mg/dL (Normal) Range: 5-40 CHOL 153 mg/dL (Normal) Comments: <200 mg/dL Lqhomzuig760-663 mg/dL Borderline>240 mg/dL High Risk TRIG 43 mg/dL (Normal) Comments: Serum Triglycerides Reference IntervalNormal <150 mg/dLBorderline high 150 - 199 mg/dLHigh 200 - 499 mg/ dLVery High > or = 500 mg/dL :43 TROP < 0.02 ng/mL (Normal) Comments: TROPONIN-I EXPECTED VALUES <0.05 NEGATIVE0.06 - 0.59 AT RISK OF ID> OR = 0.60 SUGGEST ID 93-Evt-[id number]:43 TSH 0.06 {uIU/mL} (Abnormal) Range: 0.358-3.74 60-Vjp-409820:06 CHEST, PA AND LATERAL Radiology Report See [...] Pike M.D.October 24, 2012 at 11:17:45 AM [phone] nically Signed GP/GP If you are the referring physician and would like to consult with theradiologist who provided this interpretation, please contact Douglas Harden at [phone]. If this ra diologist is unavailable, youwill be directed to another radiologist to assist. If you are a patient with a question regarding this report, pleasecontactyour referring physician directly. Professional I nterpretation Provided By: [employer], Phone , These documents contain legally protected [...] return or destructionofthese documents. Dictated on 10/23/12 1702 by Shahzad CM,DukerieleTranscribed on 10/24/12 1440 by ITS IMPORTSign by Shahzad CMSalvador on 10/24/12 1441 Sign by: hSahzad CMSalvador 09-Fbx-024384:30 HEPATOBILLIARY IMG W/PHARM INT Radiology Report See Note (Normal) Comments: CLINICAL:51-year-old female with history of right upper quadrant abdominal painandnausea. RADIONUCLIDE HEPATOBILIARY SCINTIGRAPHY COMPARISON:Gallbladder ultrasound report 07/07/12, CT of the abdomen-pel vis reeuwv66/23/12 FINDINGS:Following the intravenous administration of 5.2 mCi [...] Cholecystokinin (0.02 ug/kg) was administered intravenously over v52-vtwhaz period. The post CCK gallbladder ejection fraction yssudbmepawy19 minutes following Cholec ystokinin administration was noted [...] Iglesias M.D.July 29, 2012 at 1:03:05 PM [phone] Signed RB/RB If you are the referring physician and would like to consult with theradiologist who provided this interpretation, please contact Douglas Sousa at [phone]. If this radiologist is unavailable, you will bedirected to another radiologist to assist. If you are a patient with a question regarding this report, pleasecontactyour referring physician directly. Professional Interpretation Provided By: [employer], Phone , T hese documents contain legally [...] 07/29/12 1308 Sign by: Silvano Iglesias DO 39-Tqq-438603:57 Urinalysis, Office (10218) UA - BILIRUBIN Negative (Normal) UA - BLOOD Negative (Normal) UA - GLUCOSE Trace (Normal) Comments: 100mg UA - KETONES Negative mg/dL (Normal) UA - LEUKOCYTE ESTERASE Negative (Normal) UA - NITRITE Negative (Normal) UA - PH 7.0 (Normal) UA - PROTEIN Negative mg/dL (Normal) UA - SPECIFIC GRAVITY 1.010 (Normal) URINE UROBILINGN DIMITRY TIMED Normal mg/dL (Normal) 88-Iwz-223281:35 GALLBLADDER Radiology Report See Note (Normal) Comments: [...] size of the right kidney. The right vwcspoovjcygiu22.5 x 4.7 x 3.7 cm. Normal renal cortex. The right cortex measures 1.0cm. There is no demonstrated renal mass or cyst. There is no righthydronephrosis. IMPRESSION:Focal right hepatic lobe well-circumscribed echogenic lesion consist entwith an hemangioma. No evidence of an acute intra-abdominal process. Signed:Tan Agee M.D.July 07, 2012 at 9:08:04 PM [phone] Signed SH/SH If you are the referring ph ysician and would like to consult with theradiologist who provided this interpretation, please contact Douglas Cohn at [phone]. If this radiologist is unavailable, youwillbe directed to [facility] ther radiologist to assist. If you are a patient with a question regarding this report, pleasecontactyour referring physician directly. 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 If this radiologist is unavailable, youwillbe directed [...] on 07/07/122132 Sign by: Tan Agee MD 83-Bbs-66095:58 ABDOMEN/PELVIS WITH CONTRAST Radiology Report See Note [...] Ribera M.D.June 30, 2012 at 10:36:06 AM [id number] Signed MELI/MELI If you are the referring [...] destructionofthese documents. Dictated on 06/30/12 0708 by Reanto Guo MDTranscribed on 06/30/12 114 by ITS IMPORTSign by Renato Guo MD on 06/30/12 114 Sign by: ____ Renato Guo MD 81-Eat-832472:24 Urine Culture,Comprehensive Comments: PATIENT NOT FASTINGPERFORMED BY: [facility] Ckodfi5687 [facility] [id number] Information: SRC:UR [id number] Antimicrobial MIHEAD (Normal) Comments: S = Susceptible; [...] mL (Normal) Urine Final report Culture,Comprehensive (Normal) 81-Asa-636152:20 Urinalysis, Office (42504) UA - BILIRUBIN Negative (Normal) UA - [...] Osteoporosis (Renamed from OP (osteoporosis)) : Reviewed Nutritional Assistant Letter Indication: Osteoporosis (Renamed from OP (osteoporosis)) Diabetes mellitus type 1, controlled : *Diabetes Education Indication: Diabetes mellitus type 1, controlled Mixed hyperlipidemia : Cholesterol mgmt Indication: Mixed hyperlipidemia Anxiety : Eprescribed prescriptions (G8553) Indication: Anxiety Accidental fall, sequela : Reviewed Nutritional Assistant Letter Indication: Accidental fall, sequela Cough : [...] upper quadrant Planned Observations MICROALBUMIN: CREATININE RATIO (08656) AND (66470)Indication: Diabetes mellitus type 1, controlled On: 4-Meo-054341:07 Request METABOLIC PANEL, COMPREHENSIVE (68682)Indication: Mixed hyperlipidemia On: 4-Dli-914066:07 Request LIPID PANEL (74454)Indication: Mixed hyperlipidemia On: 9-Ccv-125818:06 Request CBC W/AUTO DIFF WBC (29812)Indication: Arthritis, rheumatoid On: 1-Rms-689021:07 Request CBC W/AUTO DIFF WBC (98486)Indication: Chest pain with high risk for cardiac etiology On: 6-Apr-87305:38 Request METABOLIC PANEL, COMPREHENSIVE (42684)Indication: Mixed hyperlipidemia On: :38 Request LIPID PANEL (75672)Indication: Mixed hyperlipidemia On: :38 Request Rapid Strep Test, Office (31351)Indication: Sore throat On: 97-Ydw-824207:51 Request Comments: negative METABOLIC PANEL, COMPREHENSIVE (54736)Indication: Diabetes mellitus type 1, controlled On: :22 Request TSH (29584)Indication: Acquired hypothyroidism On: :22 Request LIPID PANEL (76713)Indication: Mixed hyperlipidemia On: :22 Request METABOLIC PANEL, COMPREHENSIVE (18947)Indication: Mixed hyperlipidemia On: :54 Request Vitamin D Hydroxy (35432)Indication: Osteoporosis (Renamed from OP (osteoporosis)) On: 39-Wqo-937170:54 Request LIPID PANEL (31594)Indication: Mixed hyperlipidemia On: 40-Jax-090786:53 Request Vitamin D Hydroxy (71117)Indication: Osteoporosis (Renamed from OP (osteoporosis)) On: 62-Wlp-931099:42 Request TSH (22701)Indication: Acquired hypothyroidism On: 05-Wji-480696:42 Request CBC W/AUTO DIFF WBC (41814)Indication: Diabetes mellitus type 1, controlled On: 49-Feb-796314:42 Request METABOLIC PANEL, COMPREHENSIVE (44818)Indication: Diabetes mellitus type 1, controlled On: 34-Iyt-613247:42 Request LIPID PANEL (02599)Indication: Mixed hyperlipidemia On: 95-Gjb-053129:42 Request UPEP (94599)Indication: Osteoporosis (Renamed from OP (osteoporosis)) On: 7-Djy-526395:43 Request SPEP (25126)Indication: Osteoporosis (Renamed from OP (osteoporosis)) On: 5-Hap-857046:43 Request Throat Culture (75654)Indication: Acute pharyngitis On: :11 Request Influenza A&B Viral Culture (09388)Indication: Acute pharyngitis On: :11 Request Vitamin D Hydroxy (26443)Indication: Osteopenia On: :25 Request LIPID PANEL (32505)Indication: Diabetes mellitus type 1, controlled On: :00 Request TSH (02339)Indication: Multinodular goiter On: 51-Rpt-360624:00 Request MICROALBUMIN: CREATININE RATIO ([id number]) AND ([id number])Indication: Diabetes mellitus type 1, controlled On: :59 Request CBC WITH MANUAL DIFF ([id number])Indication: Diabetes mellitus type 1, controlled On: :59 Request METABOLIC PANEL, COMPREHENSIVE ([id number])Indication: Diabetes mellitus type 1, controlled On: :59 Request TSH ([id number])Indication: Acquired hypothyroidism On: 2-Rwz-234433:17 Request Comments: 6 weeks TSH ([id number])Indication: Abnormal TSH On: :52 Request T4, FREE (THYROXINE) ([id number])Indication: Abnormal TSH On: :52 Request T3, FREE (TRIDOTHYRONINE) ([id number])Indication: Abnormal TSH On: :52 Request EBV Panel ([id number])Indication: Fatigue On: 9-Mod-941382:55 Request MONOSPOT TEST ([id number])Indication: Fatigue On: 1-Stg-165855:54 Request LIPID PANEL ([id number])Indication: Mixed hyperlipidemia On: :21 Request HEPATIC FUNCTION PANEL ([id number])Indication: Mixed hyperlipidemia On: 20-Exr-33658:20 Request TSH ([id number])Indication: Acquired hypothyroidism On: :17 Request T4, FREE (THYROXINE) ([id number])Indication: Acquired hypothyroidism On: :17 Request T3, FREE (TRIDOTHYRONINE) ([id number])Indication: Acquired hypothyroidism On: :17 Request ASSAY, TROPONIN, QUANTITATIVE (aka Troponin I) ([id number])Indication: CHEST PAIN On: :28 Request D-Dimer ([id number])Indication: CHEST PAIN On: :28 Request CBC WITH MANUAL DIFF ([id number])Indication: CHEST PAIN On: :27 Request METABOLIC PANEL, COMPREHENSIVE ([id number])Indication: CHEST PAIN On: :27 Request TSH ([id number])Indication: Acquired hypothyroidism On: 43-Oig-898600:27 Request LIPID PANEL ([id number])Indication: Mixed hyperlipidemia On: 40-Kvd-449106:26 Request URINE VEE CULTURE-IDENTIFICATN ([id number])Indication: Urinary frequency On: 8-Pze-101183:31 Request CBC WITH MANUAL DIFF ([id number])Indication: Abdominal pain, acute, right upper quadrant On: 60-Qlr-876432:42 Request LIPID PANEL ([id number])Indication: Mixed hyperlipidemia On: :24 Request CBC WITH MANUAL DIFF ([id number])Indication: Mixed hyperlipidemia On: :24 Request METABOLIC PANEL, COMPREHENSIVE ([id number])Indication: Mixed hyperlipidemia On: :24 Request Planned Encounters Medical; [facility] 3 Month FU - On: 25-Aug-2018 10:30 [facility] Fast DO, Karin A Fast DO, Karin A Planned Procedures Radiology - Cervical SpineBy: On: 21-Jun-2018 Intent Fast DO, Kairn A Fast DO, Karin A Wredmjwtd-Pfx-Nflnw ([id number])By: On: 21-Jun-2018 Intent Fast DO, Karin A Fast DO, Karin A Flu Vaccine (Quadrivalent) On: 18-May-2018 Intent 95139Th: Visit, Nurse Nuclear Stress Test/Stress On: 14-Oct-2017 Intent SPECT/AdenosineBy: Fast DO, Karin A Fast DO, Karin A SCREENING DIGITAL TOMOSYNTHESIS On: 14-Oct-2017 Intent OF BREAST ([id number])By: Fast DO, Karin A Fast DO, Karin A Ultrasound - ThyroidBy: Fast DO, On: 14-Oct-2017 Intent Karin A Fast DO, Karin A ELECTROCARDIOGRAM, COMPLETE (ECG) On: 14-Oct-2017 Intent ([id number])By: Fast DO, Karin A Fast Comments: ekg [...] A ELECTROCARDIOGRAM, COMPLETE (ECG) On: 02-Feb-2017 Intent ([id number])By: Fast DO, Karin A Fast Comments: ekg showed normal sinus rhythym, normal axis, no acute st/t wave changes DO, Karin A MRI OF RIGHT BREAST WITH AND On: 02-Nov-2016 Intent WITHOUT CONTRAST ([id number])By: Colton HARRIS, Karin A Fast DO, Karin A MAMMOGRAM BREAST BILATERAL On: 25-Oct-2016 Intent DIAGNOSTIC ([id number])By: Fast DO, Karin A Fast DO, Karin A Ultrasound - Breast - RightBy: On: 22-Oct-2016 Intent Fast DO, Karin A Fast DO, Karin A Comments: axilla Ultrasound - ThyroidBy: Colton DO, On: 22-Oct-2016 Intent Karin A Fast DO, Karin A Radiology - Chest- PA and LatBy: On: 13-Sep-2016 Intent Keena Thomas DO Aerosol Treatment ([id number])By: On: 13-Sep-2016 Intent Keena Thomas DO Comments: more a/e- chest less tight- gave rx for neb Flu Vaccine (Quadrivalent) On: 26-Apr-2016 Intent 95624Gd: Keena Thomas DO Comments: Lot:[id number]:02/04/17mt:0.5mlRoute:IMSite: L DltdGiven By: BUBBA Fernandez signed Radiology - Chest- PA and LatBy: On: 09-Dec-2015 Intent Fast DO, Karin A Fast DO, Karin A Comments: stat Aerosol Treatment ([id number])By: Colton On: 09-Dec-2015 Intent DO, Karin A Fast DO, Karin A Ultrasound - ThyroidBy: Fast DO, On: 27-Oct-2015 Intent Karin A Fast DO, Karin A Flu Vaccine (Quadrivalent) On: 20-May-2015 Intent 58333Cs: Fast DO, Karin A Fast Comments: Lot:[id number]:02/05/16Dose:0.5mLRoute:IMSite:L DltdGiven By:CLIFTON signed Karin HARRIS A IMMUNIZ ADMNIN, 1 VAC, SNGL/COMBO On: 17-May-2014 Intent ([id number])By: Karin Khanna DO Comments: lot:[id number]:02/04/2015dose:0.5mLRoute: IMlocation: L armgiven by: Karin lambert DO FLU VAC, SPLIT, >3 YEARS, On: 17-May-2014 Intent INTRAMUSC ([id number])By: Jessica Javier DEXA SCAN AXIAL SKELETON On: 29-Apr-2014 Intent ([id number])By: Karin Khanna DO, DO, Debra A CT - Abdomen & Pelvis (IV On: 01-Jan-2014 Intent Contrast Needed)By: Noe CM, Comments: assure check kidney stone and any other pathology Roseanne Mccarty Eprescribed prescriptions On: 01-Jan-2014 Intent ([id number])By: Noe CM, Roseanne Mccarty Ultrasound - RenalBy: Ciesa CISCO NETWORK ARCHITECT, On: 24-Dec-2013 Intent Vanita Cutler Radiology - Lumbar SpineBy: Ciesa On: 24-Dec-2013 Intent Vanita ROJAS IMMUNIZ ADMNIN, 1 VAC, SNGL/COMBO On: 03-Dec-2013 Intent ([id number])By: Visit, Nurse Comments: Lot: [id number]: [id number]: single unit dose vialRoute:SubcutaneouslySite: L deltoid regionGiven by: LIZANDRO Gonsaleseconstituted with Sterile Diluent Lot #[id number], exp. date , given within 10 minutes of reconstitution. ZOSTER VACC, [place] ([id number])By: Visit, On: 03-Dec-2013 Intent Nurse Ultrasound - ThyroidBy: Colton HARRIS, On: 16-Oct-2013 Intent Zak Mustafa DOa A Comments: january EsophagramBy: Karin Khanna DO A On: 16-Oct-2013 Intent Colton HARRIS Karin A Comments: with 12 mm tablet Eprescribed prescriptions On: 16-Oct-2013 Intent ([id number])By: Karin Khanna DO, DO Karin A MAMMOGRAM, SCREENING, BOTH On: 16-May-2013 Intent BREASTS ([id number])By: Fast DO, Karin A Fast DO, Karin A EsophagramBy: Fast DO, Karin A On: 16-May-2013 Intent Fast DO, Karin A Comments: with 12 mmm tablet FLU VAC, SPLIT, >3 YEARS, On: 16-May-2013 Intent INTRAMUSC ([id number])By: Pedro, Comments: Lot #:[id number] date:mount given:0.5mlRoute: IMSite given: L dltdVIS and ABN signedGiven by: JUNE Quiroga IMMUNIZ ADMNIN, 1 VAC, SNGL/COMBO On: 16-May-2013 Intent ([id number])By: María Vasquez Eprescribed prescriptions On: 16-May-2013 Intent ([id number])By: María Vasquez Ultrasound - ThyroidBy: Ciesa On: 17-Jan-2013 Intent Vanita ROJAS Eprescribed prescriptions On: 17-Jan-2013 Intent ([id number])By: Magnolia Ricketts LPN Ear Irrigation ([id number])By: Morgana On: 12-Jan-2013 Intent Vanita ROJAS Comments: IrrigationSite- R and L earAmount/Color/Quality - small amount of dark yellow/soft cerumen Toelrated well: yesCurette Used: noChelsea, NURSING ASSOCIATE Wax CurettesBy: Ciesa Vanita ROJAS On: 12-Jan-2013 [...] Karin A Comments: pa and lateral EKG ([id number])By: María Vasquez On: 23-Oct-2012 Intent Comments: ekg [...] DO, Karin A TDAP VACCINE >7 IM (14514)By: On: 07-Apr-2012 Intent María Vasquez Comments: Lot #:[id number] date:mount given:0.5mlRoute: IMSite given:left deltoidGiven by: JUNE Quiroga Eprescribed prescriptions On: 07-Apr-2012 Intent ([id number])By: Fast DO, Karin A Fast DO, Karin A PNEUM VAC ADLT/IMUMNOSPR, On: 07-Apr-2012 Intent SBC/INTRM ([id number])By: Pedro, Comments: received in 2010 from [facility] [...] hyperlipidemia : DISCONTINUED - METABOLIC PANEL, COMPREHENSIVE (66733) Indication: Mixed hyperlipidemia Body mass index (BMI) [...] some irritaiton-she has Sjrogens [facility], Non-smoker, Body [...] throat. Note for Earache: Pt went to [facility] on tuesday evening. 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- bowels are regular- no blood- [...] one wants her to have estrogen- 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[place] low dose 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- she didnt do - paxil made her feel terrible- zoloft made her tired - never tried cymbalta ??and is willing - she sees Jasvir Cardoza for her ra and on orencia and doing well- and mauro s appt in march with Guera Clifford- at [facility]- no target organ damge and dx age 8 with dm- and ra was diagnosed 45Encounter Diagnosis: Arthritis, rheumatoid (714.0), Anxiety (300.00), Osteopenia (733.90), Hyperlipidemia, Mixed (272.2), Hypothyroidism (244.9), Diabetes, Type I, contolled (250.01), Menopause (627.2) [facility] Payers Sandy GRIDER/REDD HENNING; a guarantor
--- OUTSIDE RECORDS SUMMARY | 2018-10-30 02:17 | XMS RPT_ITS ---
:1960 Author Organization [place] Support Name Relationship Address Phone R Unavailable Unavailable Unavailable TRAVONER LESLEE Unavailable Unavailable + TONY NAIK Unavailable [address] + [place] [address] R Unavailable Unavailable Unavailable TRAVONER, LESLEE Unavailable Unavailable + TONY NAIK Unavailable [address] + [place] [address] R Unavailable Unavailable Unavailable LESLEY, LESLEE Unavailable Unavailable + TONY NAIK Unavailable [address] + [place] [address] R Unavailable Unavailable Unavailable TRAVONER, LESLEE Unavailable Unavailable + TONY NAIK Unavailable [address] + [place] [address] R Unavailable Unavailable Unavailable RUMER, LESLEE Unavailable [address] + [place] [address] TONY NAIK Unavailable [address] + [place] [address] R Unavailable Unavailable Unavailable TRAVONER, LESLEE Unavailable [address] + [place] [address] TONY NAIK Unavailable [address] + [place] [address] R Unavailable Unavailable Unavailable TRAVONER, LESLEE Unavailable [address] + [place] [address] TONY NAIK Unavailable [address] + [place] [address] ABBVIE Unavailable [address] + [place] [address] LESLEY, LESLEE Unavailable [address] + [place] [address] JUVENCIO, TONY Unavailable [address] + [place] [address] ABBVIE Unavailable [address] + [place] [address] RUMER, LESLEE Unavailable [address] + [place] [address] JUVENCIO, TNOY Unavailable [address] + [place] [address] ABBVIE Unavailable [address] + [place] [address] RUMER, LESLEE Unavailable [address] + [place] [address] JUVENCIO TONY Unavailable [address] + [place] [address] Care Team Providers Name Role Phone Fast, Karin Attending Unavailable Fast, Karin Referring Unavailable Fast, Karin Primary Care Unavailable Fast, Karin Attending Unavailable Fast, Karin Referring Unavailable Fast, Karin Primary Care Unavailable Fast, Karin Attending Unavailable Fast, Karin Primary Care Unavailable , ADELSO Referring Unavailable Juan, Romel Attending Unavailable Fast, Karin Referring Unavailable Charlie, Dione DYE AND CHEMICAL COORDINATOR-C Attending Unavailable Charlie, Dione DYE AND CHEMICAL COORDINATOR-C Referring Unavailable Fast, Karin Primary Care Unavailable Charlie, Dione DYE AND CHEMICAL COORDINATOR-C Attending Unavailable Charlie, Dione DYE AND CHEMICAL COORDINATOR-C Referring Unavailable Fast, Karin Primary Care Unavailable Fast, Karin Attending Unavailable Fast, Karin Primary Care Unavailable Charlie, Dione DYE AND CHEMICAL COORDINATOR-C Attending Unavailable Charlie, Dione DYE AND CHEMICAL COORDINATOR-C Referring Unavailable Fast, Karin Primary Care Unavailable Fast, Karin Attending Unavailable Fast, Karin Referring Unavailable Fast, Karin Primary Care Unavailable Fast, Karin Attending Unavailable Fast, Karin Referring Unavailable Fast, Karin Primary Care Unavailable OLIVER, JASVIR Attending Unavailable OLIVER, JASVIR Referring Unavailable OLIVER, JASVIR Referring Unavailable DIONTE MUELLER Attending Unavailable OLIVER, JASVIR Attending Unavailable OLIVER, JASVIR Referring Unavailable OLIVER, JASIVR Referring Unavailable OLIVER, JASVIR Attending Unavailable OLIVER, JASVIR Referring Unavailable OLIVER, JASVIR Referring Unavailable OLIVER, JASVIR Attending Unavailable OLIVER, JASVIR Referring Unavailable OLIVER, JASVIR Referring Unavailable EISENGART, JONATAN A Attending Unavailable EISENGART, JONAATN A Attending Unavailable EISENGART, JONATAN A Referring Unavailable EISENGART, JONATAN A Attending Unavailable EISENGART, JONATAN A Referring Unavailable EISENGART, JONATAN A Referring Unavailable EISENGART, JONATAN A Admitting Unavailable EISENGART, JONATAN A Attending Unavailable EISENGART, JONATAN A Attending Unavailable EISENGART, JONATAN A Referring Unavailable EISENGART, JONATAN A Attending Unavailable EISENGART, JONATAN A Referring Unavailable EISENGART, JONATAN A Attending Unavailable EISENGART, JONATAN A Referring Unavailable Fast DO, Karin A Attending Unavailable Fast DO, Karin A Referring Unavailable Fast DO, Karin A Consulting Unavailable Fast, Evi A. Primary Care Unavailable DIONTE MUELLER Attending Unavailable OLIVER, JASVIR Attending Unavailable OLIVER, JASVIR Referring Unavailable Fast, Evi A. Primary Care Unavailable OLIVER, JASVIR Referring Unavailable Fast, Evi A. Primary Care Unavailable OLIVER, JASVIR Attending Unavailable OLIVER, JASVIR Referring Unavailable Fast, Evi A. Primary Care Unavailable OLIVER, JASVIR Referring Unavailable Fast, Evi A. Primary Care Unavailable OLIVER, JASVIR Attending Unavailable OLIVER, JASVIR Referring Unavailable Fast, Evi A. Primary Care Unavailable OLIVER, JASVIR Referring Unavailable Fast, Evi A. Primary Care Unavailable OLIVER, JASVIR Attending Unavailable OLIVER, JASVIR Referring Unavailable Fast, Evi A. Primary Care Unavailable OLIVER, JASVIR Attending Unavailable OLIVER, JASVIR Referring Unavailable Fast, Evi A. Primary Care Unavailable OLIVER, JASVIR Referring Unavailable Fast, Evi A. Primary Care Unavailable PROBLEMS PROBLEMS DATE TYPE CONDITION / CODE ATTENDING STATUS SOURCE 08/17/2018 Unknown M54.12 - Fast, Karin Active [place] [facility]icul[facility], Community cervical region / Hospital M54.12(ICD-10) Repository 09/06/2017 Active Other chronic pain / OLIVERZOILA OSULLIVANITA Active [place] G89.29(ICD-10) Clinic Other [place] Repository 11/30/2016 Active Age-related OLIVERZOILAJASVIR Active [facility] osteoporosis without Clinic Other current pathological [place] fracture / Repository M81.0(ICD-10) 09/06/2017 Admitting Unknown / JASVIR BOYD Active [place] [facility] diagnosis [facility](Unknown[facility] Repository 06/21/2018 Unknown R07.81 - Pleurodynia Fast, Karin Active [place] / R07.81(ICD-10) [facility] Repository 06/21/2018 Unknown M54.2 - Cervicalgia Fast, Karin Active [place] / M54.2(ICD-10) [facility] Repository 05/26/2018 Unknown E03.8 - Other Charlie, Active [place] specified Dione DYE AND CHEMICAL COORDINATOR-C Community hypothyroidism / Hospital E03.8(ICD-10) Repository 05/26/2018 Unknown E53.9 - Vitamin B Charlie, Active [place] deficiency, Dione DYE AND CHEMICAL COORDINATOR-C Community unspecified / Hospital E53.9(ICD-10) Repository 05/26/2018 Unknown E10.65 - Type 1 Charlie, Active [place] diabetes mellitus Dione DYE AND CHEMICAL COORDINATOR-C [facility] with hyperglycemia / Hospital E10.65(ICD-10) Repository 05/11/2018 Active Age-related nuclear EISENGART, Active [facility] cataract, right eye JONATAN A Clinic Main / H25.11(ICD-10) [place] Repository 05/11/2018 Active Glaucoma secondary EISENGART, 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 JONATAN A Clinic Main disorders, right [place] eye, mild stage / Repository H40.51X1(ICD-10) 05/11/2018 Active Unspecified cataract EISENGART, Active [facility] / H26.9(ICD-10) JONATAN A Clinic Main [place] Repository 03/04/2013 Active Sicca syndrome, JASVIR BOYD Active [facility] unspecified / Clinic Other M35.00(ICD-10) [place] Repository 09/07/2016 Active Residual stage of EISENGART, 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 JONATAN A Clinic Main glaucoma, bilateral [place] / H40.243(ICD-10) Repository 01/23/2018 Active Type 2 diabetes EISENGART, Active [facility] mellitus without JONATAN A Clinic Main complications / [place] E11.9(ICD-10) Repository 09/06/2017 Active Chronic pain JAVSIR BOYD Active [facility] syndrome / Clinic Other G89.4(ICD-10) [place] Repository 03/04/2013 Active Other specified OLIVERJASVIR Active [facility] abnormal Clinic Other immunological [place] findings in serum / Repository R76.8(ICD-10) 11/19/2017 Unknown E55.9 - Vitamin D Charlie, Active [place] deficiency, Dione DYE AND CHEMICAL COORDINATOR-C Community unspecified / Hospital E55.9(ICD-10) Repository 11/18/2017 Unknown R07.9 - Chest pain, Juan, Romel Active [place] unspecified / Community R07.9(ICD-10) Hospital Repository 09/17/2017 Active Unspecified sprain RUHLIN, Active [facility] of left foot, DIONTE U Clinic Other initial encounter / [place] S93.602A(ICD-10) Repository 11/30/2016 Active Rheumatoid arthritis NA Active [facility] with rheumatoid Clinic Other factor of multiple [place] sites without organ Repository or systems involvement / M05.79(ICD-10) 06/24/2016 Active Dry eye syndrome of OLIVERZOILA OSULLIVANITA Active [place] bilateral lacrimal Clinic Other glands / [place] H04.123(ICD-10) Repository 05/31/2016 Active Primary OLIVER, JASVIR Active [place] osteoarthritis, Clinic Other right shoulder / [place] M19.011(ICD-10) Repository 05/31/2016 Active Primary OLIVER, JASVIR Active [facility] osteoarthritis, left Clinic Other shoulder / [place] M19.012(ICD-10) Repository 05/31/2016 Active Bilateral primary OLIVER, JASVIR Active [place] osteoarthritis of Clinic Other hip / M16.0(ICD-10) [place] Repository PROCEDURES PROCEDURES No Procedure Records FoundRESULTS RESULTS HIPS B/L MIN 2 Observed: 08/25/2018 Status: F Source: [place] VIEWS W/ PELVIS 12:[address] [facility] REPOSITORY [facility] Imaging Services [address] [place] [address] Hips B/L min 2 views w/ Pelvis MR#: [id number] Acct: [id number] Name: CHELSEA NAIK Rep #: [id number] : 1960 F 57 From: Ronny Marie MD PCP: Karin Segura DO Status: REG CLI Study: Hips B/L min 2 views w/ Pelvis Date of Exam: 08/25/18 Exam# [id number] Ordering Dr: Karin Segura DO STUDY: X-RAY - BILATERAL HIPS WITHOUT PELVIS REASON [...] neck, intertrochanteric region and visualized proximal femur. Normal left acetabulum. Normal left hip joint. Normal bilateral superior and inferior pubic rami , ischial tuberosities and pubic symphysis. RAD/Hips B/L min 2 views w/ Pelvis IMPRESSION: Normal examination of the bilateral hips and AP pelvis. Electronically Signed: Ronny Marie MD at 14:02 EST , Service support , CC: Karin Segura DO Customer Service Engineer: Signed SHOULDER MIN 2 VIEWS Observed: 08/25/2018 Status: F Source: [place] 12:[address] [facility] REPOSITORY [facility] Imaging Services [address] [place] [address] Shoulder min 2 Views MR#: [id number] Acct: [id number] Name: CHELSEA NAIK Rep #: [id number] : 1960 F 57 From: Ronny Marie MD PCP: Karin Segura DO Status: REG CLI Study: Shoulder min 2 Views Date of Exam: 08/25/18 Exam# [id number] Ordering Dr: Karin Segura DO STUDY: X-RAY - LEFT SHOULDER REASON FOR EXAM: Female, 57 years old. [...] min 2 Views IMPRESSION: 1. No erosive arthropathy. 2. Hypertrophic acromioclavicular joint arthropathy. Electronically Signed: Ronny Marie MD at 14:01 EST , Service support , CC: Karin Segura DO Customer Service Engineer: Signed SHOULDER MIN 2 VIEWS Observed: 08/25/2018 Status: F Source: [place] 12:[address] [facility] REPOSITORY [facility] Imaging Services [address] [place] [address] Shoulder min 2 Views MR#: [id number] Acct: [id number] Name: CHELSEA NAIK Rep #: [id number] : 1960 F 57 From: Alonzo Worthington MD PCP: Karin Segura DO Status: REG CLI Study: Shoulder min 2 Views Date of Exam: 08/25/18 Exam# [id number] Ordering Dr: Karin Segura DO STUDY: X-RAY - RIGHT SHOULDER REASON FOR EXAM: Female, 57 years old. Pain TECHNIQUE: 3 view(s) of the shoulder. COMPARISON: None. FINDINGS: There is no evidence of fracture or dislocation. There are mild degenerative changes in the acromioclavicular joint. There are no radiodense foreign bodies. RAD/Shoulder min 2 Views IMPRESSION: No fracture or dislocation. Mild degenerative changes in the acromioclavicular joint. Electronically Signed: Alonzo Worthington, at 15:44 EST Tel , Service support , CC: Karin Segura DO Customer Service Engineer: Signed L/S SPINE MIN 4 Observed: 08/25/2018 Status: F Source: [place] VIEWS 12:[address] [facility] REPOSITORY [facility] Imaging Services [address] [place] [address] L/S Spine Min 4 Views MR#: [id number] Acct: [id number] Name: CHELSEA NAIK Rep #: [id number] : 1960 F 57 From: Alonzo Worthington MD PCP: Karin Segura DO Status: REG CLI Study: L/S Spine Min 4 Views Date of Exam: 08/25/18 Exam# [id number] Ordering Dr: Karin Segura DO STUDY: X-RAY - LUMBAR SPINE REASON FOR EXAM: Female, 57 years old. Back pain TECHNIQUE: 5 view(s) of the lumbar spine were obtained. COMPARISON: 11/29/2014 FINDINGS: There is no evidence of fracture or dislocation in the lumbar spine. The vertebral body heights are well-maintained. There are stable mild degenerative changes. RAD/L/S Spine Min 4 Views IMPRESSION: No fracture or dislocation in the lumbar spine. Stable mild degenerative changes. Electronically Signed: Alonzo Worthington, at 14:37 EST Tel , Service support , CC: Karin Segura DO Customer Service Engineer: Signed PT D/C SUMMARY (1) Observed: 08/16/2018 Status: F Source: [place] 9:[address] [facility] REPOSITORY [facility] [address] [place] [address] / REHABILITATION SERVICES DISCHARGE SUMMARY MR#: [id number] Acct: [id number] Name: CHELSEA NAIK Rep #: [id number] : 1960 57 From: Kiki Thomas DPT Referring Dr.: Karin Segura DO Status: REG RCR Insurance: [employer]ANCE HP - PT D/C Summary It has been my pleasure to treat CHELSEA NAIK under orders from Karin Segura DO, for the diagnosis of Cervical Radiculopathy for a total of 12 visit(s). Discharge Date: Please see the following information for a summary of their discharge status. - Subjective Subjective: Stoney reports that she has improved- she has had an occasional RAMON but for the most part it has improve greatly. Pain levels have improved dramatically. She still notices things here and there but she is really happy. TENS unit at home is going well- she is using it about 2x a day and plans to travel with it. - Pain RAMON Pain Intensity (Out of 10): 0 UT Pain Intensity (Out of 10): 3 c-spine Pain Intensity (Out of 10): 3 - Overall Improvement % Improvement: 50 - Objective Objective/Function: Posture: good in chair with a back-mild guarding. Gait: no deviation- more fluid and less guarding. Palpation: tender along suboccipitals into the upper trap down the cervical paraspinals to the tip of the acromion, bicipital groove and the biceps/triceps to the elbow can tolerate more pressure with palpation. Pain along the medial border of the scapula and the supraspinatus and infraspinatus. ROM: WFL in all planes- does turn slowly. Shoulder: WNL in all planes- stiff at end range flexion and slow to perform ROM. Strength: Scap: fair plus, Cervical: 3+/5 isometrically, Shoulder: 4/5 no pain in available range, elbow 4+/5, Wrist: 4+/5, [employer]: diminshed but equal the other side. Reflex: WNL. Sensation: WNL. Special Test: Distraction: decreases s/s, Compression: increseases s/s - Goals Goal 1:: Patient will be I with HEP and progression Goal Progress: Goal Met Goal 2:: Patient will demo increased ROM of the shoulder in all deficit areas by 20 degrees Goal Progress: Goal Met Goal 3:: Patient will maintain proper posture t/o tx session to demo increased scap s/s. Goal Progress: Goal Met Goal 4:: Patient will report no RAMON for 1 week Goal Progress: Progressing - Plan Plan: Discharge to home TENS unit - D/C Information If there are questions or concerns regarding this patient's physical therapy, please feel free to call me at [phone]. Thank you for the referral of this patient. Sincerely, Kiki Thomas DPT <Electronically signed by Kiki Thomas DPT> 08/16/18 0929 CC: Karin Segura DO KAYLEIGH Signed CNPN Observed: 08/15/2018 Status: COMPLETED Source: [place] 12:00 AM CLINIC OTHER CAMPUS REPOSITORY Telephone (AGRHEUHWN) CHELSEA NAIK ([id number]) 1960 F Date Time Provider Department 08/15/18 JASVIR BOYD During your visit today, we recorded the following information about you: Lucian Cartagena CMA 08/15/2018 12:41 PM Signed For the Tramadol rx, it looks like we don't prescribe this for the patient every month. It looks like we've prescribe it every 4-6 months on average. Did you want to do UDS, Pain Contract, and run an OARRS? Let me know. Patient called requesting the following refill. Pending Prescriptions Disp Refills ABATACEPT 125 MG/ML SUBCUTANEOUS SYRINGE 12 Syringe 0 Sig: INJECT ONE SYRINGE (125 MG) SUBCUTANEOUSLY EVERY WEEK. REFRIGERATE. ALLOW TO WARM TO ROOM TEMPERATURE PRIOR TO ADMINISTRATION. ILAN: No TRAMADOL 50 MG TABLET 60 tablet 0 Sig: Take 1-2 tablets by mouth daily, as needed for 30 days. REINA Class: C-IV ILAN: No Patient last appointment: 07/25/2018 Next Appointment: 10/24/2018 Patient Phone numbers: [phone] (home) Request is for script(s) to be escript to pharmacy and called into pharmacy. WILNER Billingsley MD 08/15/2018 1:08 PM Signed Yes, started protocol. If she is filling it every 4-6 months should at least do a urine drug screen once a year and definitely have pain contract and OARRS before every refill Lucian Cartagena CMA 08/15/2018 1:52 PM Signed lmtc Lucian Cartagena CMA 08/15/2018 4:07 PM Signed Patient is aware of the message. Pain Contract has been sent to patient to sign and return back to us. OARRS report given to Dr. Boyd for review. Patient said she can do UDS at her next appt in October (since Dr. Boyd said okay to do UDS once a year). The following prescriptions have been called to [facility] pharmacy 08/15/2018 at 4:03 PM by Lucian Cartagena CMA. I spoke with in the pharmacy. Signed Prescriptions Disp Refills traMADol (ULTRAM) 50 mg tablet 60 tablet 0 Sig: Take 1-2 tablets by mouth daily, as needed for 30 days. REINA Class: C-IV ILAN: No Authorizing Provider: JASVIR BOYD Allergies As of Date: 08/15/2018 Noted Allergy Reaction GLUTEN 10/06/2015 14 - Other: See Comments Comments: Upset Stomach; Intolerance SEPTRA (SULFAMETHOXAZOLE-TRIMETHO*10/06/2015 11 - Vomiting 14 - Other: See Comments Comments: Septra DS: Nausea SULFA (SULFONAMIDE ANTIBIOTICS) 08/16/2005 14 - Other: See Comments Comments: Patient Unsure.occurred post (Septra DS) N+V Date Reviewed: 07/25/2018 Reviewed by: Jasvir Boyd - Fully Assessed Reason for Visit: Refill Request [94] Visit Diagnosis:Chronic pain syndrome [G89.4] Order(s):abatacept (ORENCIA) 125 mg/mL syrgINJECT ONE SYRINGE (125 MG) SUBCUTANEOUSLY EVERY WEEK. REFRIGERATE. ALLOW TO WARM TO ROOM TEMPERATURE PRIOR TO ADMINISTRATION.Disp: 12 SyringeRfl: 0 traMADol (ULTRAM) 50 mg tabletTake 1-2 tablets by mouth daily, as needed for 30 days.Disp: 60 tabletRfl: 0 Prescriptions as of 08/15/2018 Sig: ABATACEPT 125 MG/ML SUBCUTANE* INJECT ONE SYRINGE (125 MG) S* TRAMADOL 50 MG TABLET Take 1-2 tablets by mouth catherine* CELECOXIB 200 MG CAPSULE TAKE 1 CAPSULE BY MOUTH EVERY* LUMIGAN 0.01 % EYE DROPS Use 1 Drop in both eyes daily* LEVOBUNOLOL 0.5 % EYE DROPS Use 1 Drop in the left eye tw* INSULIN DEGLUDEC (U-100) 100 * Inject 16 Units subcutaneousl* VITAMIN E 400 UNIT CAPSULE Take 400 Units by mouth once * NIACIN ER 500 MG TABLET,EXTEN* Take 500 mg by mouth twice da* LEVOTHYROXINE 100 MCG TABLET Take 100 mcg by mouth once da* LEFLUNOMIDE 10 MG TABLET TAKE 1 TABLET BY MOUTH ONCE D* SIMBRINZA 1 %-0.2 % EYE DROPS* USE 1 DROP IN EYES TWICE DAVIDA* CYCLOSPORINE 0.05 % EYE DROPS Use in eyes twice daily. OMEGA-3 ACID ETHYL ESTERS 1 G* Take 2 capsules by mouth twic* CALCIUM CARBONATE 600 MG (1,5* Take 2 tablets by mouth once * BLOOD SUGAR DIAGNOSTIC STRIPS 10 Each once daily. Use as in* LEVOTHYROXINE 112 MCG TABLET Take 112 mcg by mouth once da* PEN NEEDLE, DIABETIC 32 GAUGE* Inject 4 Units subcutaneously* INSULIN ASPART U-100 100 UNI* Subcutaneous 4 times a day - * LOSARTAN 25 MG TABLET Take 25 mg by mouth once davida* MILK THISTLE ORAL Take 300 mg by mouth. 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 Follow-up examination after eye surgery [Z09] INVALID FOR*06/09/2016 Dry eye syndrome [H04.129] INVALID FOR* Pseudophakia, left eye [Z96.1] INVALID FOR* Residual stage of angle-closure glaucoma of bot*INVALID FOR* Closed Colles' fracture of right radius [S52.53*INVALID FOR* Rheumatoid arthritis involving multiple sites w* Chronic pain [G89.29] INVALID FOR* Phacomorphic glaucoma of right eye, mild stage *INVALID FOR* More... Nuclear sclerosis, right [H25.11] INVALID FOR*05/11/2018 More... Prescriptions ordered this encounter Disp Refills Start End ABATACEPT 125 MG/ML SUBCUTANEOUS SYR* 12 S* 0 08/15/2018 Sig: INJECT ONE SYRINGE (125 MG) SUBCUTANEOUSLY EVERY WEEK. REFRIGERATE. ALLOW TO WARM TO ROOM TEMPERATURE PRIOR TO ADMINISTRATION. TRAMADOL 50 MG TABLET 60 t* 0 08/15/2018 09/13/2018 Class: Call Rx Sig: Take 1-2 tablets by mouth daily, as needed for 30 days. Medications Discontinued During This Encounter abatacept (ORENCIA) 125 mg/mL syrg 12 S* 0 04/17/2018 08/15/2018 Sig: INJECT ONE SYRINGE (125 MG) SUBCUTANEOUSLY EVERY WEEK. REFRIGERATE. ALLOW TO WARM TO ROOM TEMPERATURE PRIOR TO ADMINISTRATION. Disc: Reason for discontinue is not on file. traMADol (ULTRAM) 50 mg tablet 60 t* 0 03/01/2018 08/15/2018 Class: Call Rx Sig: Take 1-2 tablets by mouth daily, as needed for 30 days. Disc: Reason for discontinue is not on file. Encounter Status:Closed by JASVIR BOYD MD on 08/15/18 CNPN Observed: 08/15/2018 Status: COMPLETED Source: [place] 12:00 AM CLINIC OTHER CAMPUS REPOSITORY Telephone ([place]HWN) CHELSEA NAIK ([id number]) 1960 F Date Time Provider Department 08/15/18 JASVIR BOYD During your visit today, we recorded the following information about you: Lucian Cartagena CMA 08/15/2018 12:44 PM Signed Patient called and stated that she wanted to know her blood work results. Please advise. Jasvir Boyd MD 08/15/2018 1:09 PM Signed Blood work looked good. Did not see anything concerning. Please also remind her that we typically call if we see anything abnormal Lucian Cartagena CMA 08/15/2018 1:52 PM Signed lmtc Lucian Cartagena CMA 08/15/2018 4:00 PM Signed Patient is aware of the result. Patient was concerned about her xray results too. She wondered if we received her results from PCP's office for xrays of her shoulders and neck? I told patient we received xrays for her cervical spine and ribs/chest from June 2018. She said those would be the xrays she was referring about. She said she had questions about them but she said she will wait until her appt in October to address them directly with Dr. Boyd. She states she's still seeing physical therapy for the last 6 weeks and she states they've ordered an ultrasound(?) Allergies As of Date: 08/15/2018 Noted Allergy Reaction GLUTEN 10/06/2015 14 - Other: See Comments Comments: Upset Stomach; Intolerance SEPTRA (SULFAMETHOXAZOLE-TRIMETHO*10/06/2015 11 - Vomiting 14 - Other: See Comments Comments: Septra DS: Nausea SULFA (SULFONAMIDE ANTIBIOTICS) 08/16/2005 14 - Other: See Comments Comments: Patient Unsure.occurred post (Septra DS) N+V Date Reviewed: 07/25/2018 Reviewed by: Jasvir Boyd - Fully Assessed Reason for Visit: Results [95] Prescriptions as of 08/15/2018 Sig: CELECOXIB 200 MG CAPSULE TAKE 1 CAPSULE BY MOUTH EVERY* LUMIGAN 0.01 % EYE DROPS Use 1 Drop in both eyes daily* LEVOBUNOLOL 0.5 % EYE DROPS Use 1 Drop in the left eye tw* INSULIN DEGLUDEC (U-100) 100 * Inject 16 Units subcutaneousl* VITAMIN E 400 UNIT CAPSULE Take 400 Units by mouth once * NIACIN ER 500 MG TABLET,EXTEN* Take 500 mg by mouth twice da* LEVOTHYROXINE 100 MCG TABLET Take 100 mcg by mouth once da* X ABATACEPT 125 MG/ML SUBCUTANE* INJECT ONE SYRINGE (125 MG) S* LEFLUNOMIDE 10 MG TABLET TAKE 1 TABLET BY MOUTH ONCE D* SIMBRINZA 1 %-0.2 % EYE DROPS* USE 1 DROP IN EYES TWICE DAVIDA* CYCLOSPORINE 0.05 % EYE DROPS Use in eyes twice daily. OMEGA-3 ACID ETHYL ESTERS 1 G* Take 2 capsules by mouth twic* CALCIUM CARBONATE 600 MG (1,5* Take 2 tablets by mouth once * BLOOD SUGAR DIAGNOSTIC STRIPS 10 Each once daily. Use as in* LEVOTHYROXINE 112 MCG TABLET Take 112 mcg by mouth once da* PEN NEEDLE, DIABETIC 32 GAUGE* Inject 4 Units subcutaneously* INSULIN ASPART U-100 100 UNI* Subcutaneous 4 times a day - * LOSARTAN 25 MG TABLET Take 25 mg by mouth once davida* MILK THISTLE ORAL Take 300 mg by mouth. 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 Follow-up examination after eye surgery [Z09] INVALID FOR*06/09/2016 Dry eye syndrome [H04.129] INVALID FOR* Pseudophakia, left eye [Z96.1] INVALID FOR* Residual stage of angle-closure glaucoma of bot*INVALID FOR* Closed Colles' fracture of right radius [S52.53*INVALID FOR* Rheumatoid arthritis involving multiple sites w* Chronic pain [G89.29] INVALID FOR* Phacomorphic glaucoma of right eye, mild stage *INVALID FOR* More... Nuclear sclerosis, right [H25.11] INVALID FOR*05/11/2018 More... Encounter Status:Closed by JASVIR BOYD MD on 08/15/18 RE-EVALUATION - PT (1) Observed: 07/28/2018 Status: F Source: [place] 10:[address] [facility] REPOSITORY [facility] [address] [place] [address]. [address] [place] [address] Fax REEVALUATION / MEDICARE RECERTIFICATION PHYSICAL THERAPY MR#: [id number] Acct: [id number] Name: CHELSEA NAIK Rep #: [id number] : 1960 57 From: Kiki Thomas DPT Referring Dr.: Karin Segura DO Status: REG RCR Insurance: [employer]ANCE Karin Segura DO, It has been my pleasure to treat CHELSEA NAIK over the last 8 visits for Cervical Radiculopathy. Please see the progress note below for an update on the physical therapy plan of care! Subjective: Patient reports that she has improved pain since coming to therapy. Sometimes the pain is moderate and other times its mild. She has noticed that her headaches have greatly improved- thats the most significant improvement. No RAMON in the last week. Feels more functional and able to do a little bit more. Objective/Function: Posture: FH, RS- guarded but more movement today. Gait: slightly antalgic- decreased trunk rotation and limited arm swing. Palpation: tender along suboccipitals into the upper trap down the cervical paraspinals to the tip of the acromion, bicipital groove and the biceps/triceps to the elbow. Pain along the medial border of the scapula and the supraspinatus and infraspinatus. ROM: Cervical: flexion- decreased by 25%, Extn: decreased by 25% SB: decreased by 25% Rot: decreased by 25% all with moderate pain. Shoulder: Flexion: 120 degrees, Abd: 110 degrees, IR: bra line, ER: 30 degrees all with significant pain. Elbow: WNL, Wrist: WNL. Strength: Scap: poor, Cervical: 3+/5 isometrically, Shoulder: 4-/5 with pain in available range, elbow 4+/5, Wrist: 4+/5, [employer]: diminshed but equal the other side. Reflex: WNL. Sensation: WNL. Special Test: Distraction: decreases s/s, Compression: increseases s/s Plan Plan: [...] Weeks Goal Progress: Progressing Goal 3:: Patient will maintain proper posture t/o tx session to demo increased scap s/s. Goal Time Frame: 4-6 Weeks Goal Progress: Progressing Goal 4:: Patient will report no RAMON for 1 week Goal Time Frame: 4-6 [...] do not hesitate to contact me at [phone] by phone or if you have questions or concerns regarding this new plan of care! Sincerely, Kiki Thomas, DPT <Electronically signed by Kiki Thomas DPT> 07/28/18 1058 CC: Karin Segura ELR Signed For Medicare only, by signing this I certify the plan of care. Physicians Signature Date HEMOGRAM/DIFF Collected: 07/25/2018 Status: F Source: [facility] 2:45 PM [facility] REPOSITORY TYPE CODE TESTS RESULT OUT OF REFERENCE UNITS RANGE LAB WBC(LOINC) 3.98-10.04 thou/cmm WBC 4.13 LAB RBC(LOINC) 3.93-5.22 mil/cmm RBC 4.35 LAB HGB(LOINC) 11.2-15.7 g/dL Hgb 13.7 LAB HCT(LOINC) 34.1-44.9 % Hct 41.9 LAB MCV(LOINC) 79.4-94.8 fl MCV High 96.3 LAB MCH(LOINC) 25.6-32.2 pg MCH 31.5 LAB MCHC(LOINC 31.6-34.8 % ) MCHC 32.7 LAB RDW(LOINC) 11.7-14.4 % RDW 12.6 LAB RDWSD(LOIN 36.4-46.3 fl C) RDW SD 44.8 LAB PLT(LOINC) 182-369 thou/cmm Low Platelet 140 LAB MPV(LOINC) 9.4-12.3 fl MPV 11.2 LAB SEG(LOINC) % Seg Neutrophil 35.2 LAB IGRE(LOINC % ) Immature Grans 0.20 LAB LYMPH(LOIN % C) Lymphocyte 48.4 LAB MNO(LOINC) % Monocyte 10.2 LAB EOSIN(LOIN % C) Eosinophil 5.3 LAB BASO(LOINC % ) Basophil 0.7 LAB SEGN(LOINC 1.56-6.13 thou/cmm ) Low Abs. Neut (ANC) 1.45 LAB IGAB(LOINC 0.00-0.05 thou/cmm ) Abs Immature Grans 0.01 LAB LYMN(LOINC 1.18-3.74 thou/cmm ) Abs. Lymph 2.00 LAB MONON(LOIN 0.27-0.70 thou/cmm C) Abs. [place] 0.42 LAB EOSN(LOINC 0.00-0.31 thou/cmm ) Abs. Eosin 0.22 LAB BASON(LOIN 0.01-0.08 thou/cmm C) Abs. Baso 0.03 Performed By: #### CBCD1 #### [place] [id number] COMPREHENSIVE PANEL Collected: 07/25/2018 Status: F Source: [facility] 2:45 PM HEALTH SYSTEM REPOSITORY TYPE CODE TESTS RESULT OUT OF REFERENCE UNITS RANGE LAB NA(LOINC) 136-145 mEq/L Sodium Blood 139 LAB K(LOINC) 3.5-5.1 mEq/L Potassium Blood 4.1 LAB CL(LOINC) 98-107 mEq/L Chloride Blood 103 LAB CO2(LOINC) 21-32 mEq/L CO2 Blood 31 LAB GLU(LOINC) 70-99 mg/dL Glucose Blood 71 LAB BUN(LOINC) 7-18 mg/dL BUN Blood 17 LAB CREA(LOINC 0.51-0.95 mg/dL ) Creatinine Blood 0.70 LAB CA(LOINC) 8.5-10.1 mg/dL Calcium Blood 9.5 LAB ALB(LOINC) 3.4-5.0 g/dL Albumin Blood 4.1 LAB TP(LOINC) 6.4-8.2 g/dL Total Protein 6.9 LAB AST(LOINC) 9-37 U/L AST-SGOT Blood 20 LAB ALT(LOINC) 12-78 U/L ALT-SGPT Blood 30 LAB ALKP(LOINC 46-116 U/L ) Alk Phosphatase 93 LAB BILIT(LOIN 0.2-1.0 mg/dL C) Total Bilirubin 0.4 LAB ANGAP(LOIN 8-16 C) Anion Gap 9 Performed By: #### P14 #### [facility] [address] [place] [id number] CRP Collected: 07/25/2018 Status: F Source: [facility] 2:[facility] REPOSITORY TYPE CODE TESTS RESULT OUT OF RANGE REFERENCE UNITS LAB CRP3(LOINC) 0.00-0.30 mg/dL CRP < 0.29 Performed By: #### CRP3 #### [facility] [address] [place] [address] MDRD GFR Collected: 07/25/2018 Status: F Source: [facility] 2:45 PM [facility]ALTH SYSTEM REPOSITORY TYPE CODE TESTS RESULT OUT OF RANGE REFERENCE UNITS LAB GFRFN(LOINC >60mL/min/1.73m ) 2 eGFR >60 Result Comment: If the patient is , multiply the result by 1.210. Performed By: #### GFR #### [facility] [address] [place] [id number] SED RATE Collected: 07/25/2018 Status: F Source: [facility] 2:45 PM [facility]ALTH SYSTEM REPOSITORY TYPE CODE TESTS RESULT OUT OF RANGE REFERENCE UNITS LAB ESR(LOINC) 0-20 mm/hr Sed Rate 4 Performed By: #### ESR #### [place] [address] CNOV Observed: 07/25/2018 Status: COMPLETED Source: [place] 2:00 PM [facility] REPOSITORY Office Visit ([facility]) CHELSEA NAIK ([id number]) 1960 F Date Time Provider Department 07/25/18 2:00 PM JSAVIR BOYD During your visit today, we recorded the following information about you: Temperature Pulse Blood pressure Weight 97.7 degrees 78/minute 134/74 58.5 kg Height 1.626 m Jasvir Boyd MD 07/25/2018 2:29 PM Signed Subjective HPI: Chelseamartínez Haasyer is a 57 year old female who presents with rheumatoid arthritis, osteoporosis , history of multiple fractures, 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 Her pain today is 4/10 in her neck, lower back, knees. She has radiation of pain down her right arm into the right hand. She's had some pain in the shoulder. In April 2018 she was leaning across her bathtub and heard a crack in her ribs. She had x-rays and found to have fracture. Since then she's had increased pain in her neck and right arm. She says she had x-rays which showed lots of arthritis in different places and has been referred to physical therapy and they've been using TENS unit and ultrasound to help with her symptoms. She also had massage through them but noticed increased pain and has discontinued massage therapy. Her headaches are improved but she continues to have pain mostly in the right arm and neck. Since her last visit in April 2018 she's been taking Orencia subcutaneous weekly instead of every other week and has been more compliant. She hasn't missed any doses. She's on a day by 10 mg daily. She takes tramadol one tablet at bedtime. She gives a history of reaction gabapentin. 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 Since then she decided to hold off on treatment for osteoporosis and decided to discontinue Orencia. She's been off Orencia since April 2017-December 2017 and was flaring up from her rheumatoid She continues to take Celebrex 200 mg daily Her oral surgeon the past recommended she hold off on Orencia therapy . She was in remission while on Orencia in the past but disease has been very active since discontinuation of Orencia. 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 She's received one dose of prolia in November 2016. She did 2 doses of reclast in the past and prior to that Actonel for 3 years. She stopped Actonel in May 2012 because she had trouble swallowing In September 2015 she fell and fractured her right wrist-distal radius. She had a bone density recently September 2016 with a T score of -2.6 in the right femoral neck. There was a decline in the spine BMD but improvement in the hip BMD. She's had glaucoma in the eye and is legally blind in the left eye and has loss of peripheral vision on the right. She has difficulty driving especially at night. She's on calcium and vitamin D supplements. She is no longer taking tramadol and has been taking Celebrex 200 mg daily. In the past she had a Kenalog injection for left trochanteric bursitis which helped significantly. She wants to continue to avoid methotrexate- she did not like the way it made her feel. In June 26 2014 she took a fall on ice and fractured her left elbow-distal humerus and proximal ulna requiring surgery. She had a bone density recently which showed osteoporosis in the femoral neck with a T score of -2.9 in the right femoral neck in August 2014. She had discontinued methotrexate in the past and is doing well on monotherapy. She went on a gluten-free diet as both her kids are diagnosed with celiac. Testing on her was negative. She continues to be off Plaquenil. PAST MEDICAL HISTORY Diagnosis Date - Acquired hypothyroidism autoimmune - Closed fracture of foot 5th metatarsal shaft left. Jack Anderson MD - Degenerative joint disease of shoulder region Left. MRI [facility]. 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 - On predatory animal exterminator drug therapy - Orthostatic proteinuria intermittent. - Osteoarthritis of hip - Osteopenia - Osteoporosis - Rheumatoid arthritis involving multiple sites with positive rheumatoid factor (HCC) - Sjogren's syndrome (HCC) - Trochanteric bursitis bilateral - Type 1 diabetes mellitus (HCC) - Vitamin D deficiency - Vitiligo PAST SURGICAL HISTORY Procedure Laterality Date - EXCISION TONSIL LESIONS BILATERAL 1965 - IRIDOTOMY/IRIDECTOMY BY LASER Right 06/2008 Laser Peripheral Iridotomy (LPI) - IRIDOTOMY/IRIDECTOMY BY LASER Left 07/2009 Laser Peripheral Iridotomy (LPI) - LASIK 1996 both eyes - LIGATE FALLOPIAN TUBE 1996 Tubal ligation - PROCEDURE (SPECIFY) 06/2014 left elbow - PROCEDURE (SPECIFY) 1996 lump removed from right breast - REMV CATARACT EXTRACAP,INSERT LENS Left 06/03/16 PCIOL with Ab interno trabeculotomy OS Health Maintenance Procedures HBA1C due on 11/14/1964 URINE ALBUMIN:CREATININE RATIO due on 11/14/1969 DIABETIC FOOT EXAM due on 11/14/1969 ONE PNEUMOVAX PRIOR TO AGE 65 due on 1975 LDL CHOLESTEROL due on 11/14/1977 ANNUAL PCP TEAM CHRONIC DISEASE VISIT due on 11/14/1977 BP CONTROLLED (<130/80) due on 11/14/1977 DTAP,TDAP,TD(1 - Tdap) due on 11/14/1978 PAP EVERY 5 YEARS due on 11/14/1989 HPV EVERY 5 YEARS due on 11/14/1989 MAMMOGRAM due on 1999 HEPATITIS C SCREENING due on 2003 COLORECTAL CANCER SCREENING,SEE MODIFIER due on 11/14/2009 INFLUENZA(1) due on 04/08/2018 Discussed health maintenance, including regular aerobic exercise, low fat diet, and periodic exams. Health Maintenance Immunizations Given Immunizations: Immunization History Administered Date(s) Administered Influenza Seasonal Inj Age 3+ 05/07/2009 Influenza Seasonal Inj Quadrivalent Age 3+ 05/25/2017 PPD ([place]) 03/02/2006 Current Outpatient Prescriptions: abatacept (ORENCIA) 125 mg/mL syrg INJECT ONE SYRINGE (125 MG) SUBCUTANEOUSLY EVERY WEEK. REFRIGERATE. ALLOW TO WARM TO ROOM TEMPERATURE PRIOR TO ADMINISTRATION. alpha tocopheryl acetate (VITAMIN E) 400 unit capsule Take 400 Units by mouth once daily. Ascorbic Acid (VITAMIN C) 1,000 mg tablet Take 2,000 mg by mouth twice daily. blood sugar diagnostic test strip 10 Each once daily. Use as instructed calcium carbonate 600 mg-cholecalciferol 400 units 600 mg(1,500mg) -400 unit tab Take 2 tablets by mouth once daily. celecoxib (CELEBREX) 200 mg capsule TAKE 1 CAPSULE BY MOUTH EVERY DAY Cholecalciferol, Vitamin D3, (VITAMIN D-3) 2,000 unit cap Take 4,000 Units by mouth once daily. COMPOUNDED PRESCRIPTION Flax seed oil 1000mg cyanocobalamin (VITAMIN B-12) 1,000 mcg Tab Take 1,000 mcg by mouth once daily. cycloSPORINE 0.05 % drop Use in eyes twice daily. insulin aspart (NOVOLOG) 100 unit/mL Soln Subcutaneous 4 times a day - pt adjusts own sliding scale per blood glucose levels insulin degludec (TRESIBA FLEXTOUCH U-100) 100 unit/mL (3 mL) injection Inject 16 Units subcutaneously every morning. Insulin [place], Disposable, 32 gauge x 32 ndle Inject 4 Units subcutaneously once daily. leflunomide (ARAVA) 10 mg tablet TAKE 1 TABLET BY MOUTH ONCE DAILY. INDICATIONS: RHEUMATOID ARTHRITIS levobunolol (BETAGEN) 0.5 % ophthalmic solution Use 1 Drop in the left eye twice daily. levothyroxine (SYNTHROID) 100 mcg tablet Take 100 mcg by mouth once daily. levothyroxine (SYNTHROID) 112 mcg tablet Take 112 mcg by mouth once daily. losartan 25 mg tablet Take 25 mg by mouth once daily. LUMIGAN 0.01 % drop ophthalmic drops Use 1 Drop in both eyes daily at bedtime. MILK THISTLE ORAL Take 300 mg by mouth. niacin ER (NIASPAN) 500 mg tablet Take 500 mg by mouth twice daily with meals. omega-3 acid ethyl esters (LOVAZA) 1 gram capsule Take 2 capsules by mouth twice daily. SIMBRINZA 1-0.2 % Ophth Susp USE 1 DROP IN EYES TWICE DAILY. simvastatin 5 mg tablet Take 5 mg by mouth daily at bedtime. No current facility-administered medications for this visit. ALLERGIES Allergen Reactions - Gluten Other: See Comments Upset Stomach; Intolerance - Septra [Sulfamethox* Vomiting, Other: See Comments Septra DS: Nausea - Sulfa (Sulfonamide * Other: See Comments Patient Unsure.occurred post (Septra DS) N+V FAMILY HISTORY Problem Relation Age of Onset - Colon Cancer Father - Diabetes Father Type II - other (Pulmonary embolism) Mother Cause of - Age 41 - other (MS) Paternal Uncle Cause of - Stroke Maternal Grandfather Cause of - No Ocular Disease No Family History Social History Marital status: Spouse name: Years of education: Number of children: Occupational History Occupation Employer Comment retired from [employer] due to vision problems Social History Main Topics Smoking status: Never Smoker Smokeless tobacco: Never Used Alcohol use: Yes 1.5 oz/week Glasses of Wine (5oz): 1 per week Comment: 1-2 times a year Drug use: No Other Topics Concern Special Diet Not Asked Comment:Good diet Exercise Not Asked Comment:Excercises 5 or more days/wk History Review: I have reviewed and modified as needed, the following during this visit: Allergies, Past Medical History, Past Surgical History, Past Family History, Past Social History. Review of Systems CONSTITUTIONAL: Negative for weight gain, weight loss,weakness, fever, falls. Positive for fatigue EYES: Negative for Eye Pain, Eye Redness, Reduced Vision, Diplopia, Blurred Vision, Dryness, Feels like something in Eye(s), Eye Itching NOSE, THROAT: Negative for frequent or significant headaches, No changes in hearing or vision, no nose bleeds or other nasal problems NECK: Negative for lumps, goiter, pain and significant neck swelling RESPIRATORY: Negative for cough, hemoptysis, wheezing or shortness of breath CARDIOVASCULAR: No chest pain, arrhythmia, palpitations, heart murmurs GI: No nausea, vomiting, or diarrhea : No history of dysuria, frequency or incontinence Kidney disease/stones: no MUSCULOSKELETAL: Negative for ,muscle weakness, back pain , Positive for joint pain, positive for joint swelling, positive for morning stiffness SKIN: Negative for changes in the skin redness, easily bruising, pruritus, skin rash, malar rash, hives, sun sensitivity, tightness, nodules/bumps, hair loss, skin lesion, ulcerations, color changles of hands or feet in the cold. Negative for rash PSYCH: Negative for excessive worries, anxious, easily losing temper, feeling depressed, feeling agitated, diffuclty falling asleep, diffuclty staying asleep HEMATOLOGY/LYMPHOLOGY Negative for prolonged bleeding, bruising easily or swollen nodes ENDOCRINE: Negative for cold or heat intolerance, polyuria, polydipsia and goiter NEURO: Negative for headache, dizziness, syncope, muscle spasms, tingling, loss of consciousness, sensitivity or pain of hands and/or feet, memory loss, night sweats BP 134/74 Pulse 78 Temp 36.5 ?C (97.7 ?F) Ht 162.6 cm (5' 4) Wt 58.5 kg (129 lb) BMI 22.14 kg/m? Physical Exam GENERAL: Well appearing, alert, comfortable, in no acute distress, well-hydrated, well nourished. HEENT: Negative for external ears normal. Canals are clear. Both TMs visualized and are normal. Eye Exam normal. External nose normal, no nasal ulcer or throat ulcer. NECK: NECK Supple, no adenopathy; thyroid symmetric, normal size, no bruits CARDIAC: regular rate and rhythm, No murmur asculated. and Equal peripheral pulses RESPIRATORY: Lungs clear to auscultation. No wheezing, rhonchi, rales VASCULAR: RRR without murmur, gallop, or rubs. No ectopy. ABDOMEN: Soft, non tender. BS active. No masses or organomegaly. LYMPHATIC: Negative for adenopathy in the neck, axillae, groin, supraclavicular and auricular. NEURO: Motor and sensory exam normal MOTOR: Normal; including tone, gait, stressed gait, power and coordination. SKIN: Negative for alopecia, skin rash, malar rash, skin lesion, skin ulcer, pits, thickening, color changes, telangiectasias, nail changes, nail ridging, nail pitting, onycholysis MUSCULOSKELETAL: Mild impingement right shoulder but good range of motion Mild fullness and slight tenderness right second third MCP joints and right second third PIP joints All other joints without much fullness Slight impingement right hip Serology: : RF: +, CCP: +, MITCHELL: 1:640, DNA: +, Repeat double-stranded DNA negative Lab Results: April 2018 CMP with creatinine 0.61 CRP normal ESR 2 CBC normal Radiology Results: The full radiology report is copied below. X-ray left foot 09/2017 There is no acute bony abnormality identified. ?There is an old healed fracture of ?the mid shaft of the fifth metatarsal. ?No dislocation, stress related change or significant arthrosis. ?Normal soft tissues. EMG nerve conduction test February 2017 Right common peroneal mononeuropathy October 2016 X-ray right knee Normal X-ray of the hips 1. ?Minimal joint space narrowing involving the left hip. ? 2. ?Otherwise negative pelvis, and negative right and left hips. Bone density scan in September 2016 T score -2.6 right femoral neck Assessment (M05.79) Rheumatoid arthritis involving multiple sites with positive rheumatoid factor (HCC) (primary encounter diagnosis) (M81.0) Osteoporosis, unspecified osteoporosis type, unspecified pathological fracture presence (R76.8) Positive cardiolipin antibodies (G89.29) Other chronic pain (M16.0) Primary osteoarthritis of both hips 57-year-old with #1 sero positive rheumatoid arthritis with mild synovitis today- on leflunomide 10 mg daily and Orencia subcutaneous weekly-hasn't more compliant with Orencia since April 2018 and has less synovitis on exam today . In the past she had a great response to Orencia and was in remission but went off Orencia from April 2017 up until November 2017 with flare. Appears improved on exam #2 severe osteoporosis-recent bone density with a T score of -2.6 in the femoral neck, recent fracture right distal radius September 2016. history of fracture left distal humerus/proximal ulnar fracture in June 2014. On calcium and vitamin D supplementation. History of Actonel use in the past has been discontinued in 2011 because of GI intolerance-received first dose of Reclast in October 2014 and second dose October 2015. Has done one dose of prolia November 2016. Currently not on treatment for osteoporosis-was recommended Tymlos but wants to hold off since recently diagnosed with osteonecrosis of the jaw. Has elected to hold off on all treatment #3 recent right distal radius fracture, prior to that had left distal femur/proximal ulnar fracture post surgery-continues to have pain from past fractures #4 left shoulder impingement-improved with exercise and injection. Also has acromioclavicular joint arthrosis on the left and on MRI #5 history of left trochanteric bursitis with mild degenerative arthritis in the hip-improved with Kenalog injection in the past-mild symptoms today. Recent imaging continues to show mild degenerative arthritis left hip-continues to be symptomatic #6 type 1 diabetes on insulin, hypertension, hypothyroidism, vitiligo, depression, glaucoma, intermittent proteinuria #7 family history of celiac disease-both get her diagnosis celiac. She has gone on a gluten-free diet with overall improvement in generalized pain #8 history of TNF induced SLE - recent double-stranded DNA negative. History of positive anti-Cardiolipin antibodies and leukopenia. On aspirin. Plaquenil discontinued without problems. Stable #9 mild lumbar spondylosis-symptoms improved-intermittent symptoms #10sicca symptoms, glaucoma with loss of vision left eye and some symptoms on the right-has seen bar turner #11 cervicalgia and right upper extremity pain-radiculopathy?-Increased symptoms recently #12 right common peroneal mononeuropathy on EMG nerve conduction test in February 2017-stable #13 osteonecrosis of the jaw with concurrent infection-has seen oral surgeon. Treated with antibiotics since April 2017-. Not on treatment for osteoporosis . Had recent episode of osteonecrosis again and given another course of antibiotics Plan She's been more compliant with Orencia since April 2018- on Orencia subcutaneous weekly and appears to have much less synovitis on exam today Continue Orencia subcutaneous weekly Continue leflunomide 10 mg daily She's concerned about her recent pain in the right upper extremity and in the neck-concerning for cervical radiculopathy She's had x-rays and referred to physical therapy Obtain x-ray results If no response to conservative management may need MRI. May also need to consider EMG nerve conduction test She is history of reaction to gabapentin and wants to hold off on gabapentin or Lyrica On exam rheumatoid arthritis overall appears to be quite stable and not causing most of her symptoms since no indication to change biologic treatment. Would also like to avoid prednisone therapy with her history of osteoporosis Blood work to monitor medication and disease activity She's a history of osteonecrosis of the [id number] with oral surgeon as needed Continue calcium and vitamin D supplements Symptomatic treatment of sicca symptoms Schedule bone density scan for September 2018 Continue Celebrex 200 mg daily She takes tramadol one tablet at bedtime-can continue Continue gluten-free diet Follow-up in 3-4 months During this patients visit I have spent more then 50% Face to Face time out of 40 mins in counseling regarding treatment options, medications and test results and coordinating care Plan Office Visit on 07/25/18 -DXA-AXIAL SKELETON -CBC + DIFF -COMP METABOLIC PANEL -C-REACTIVE PROTEIN (CRP) -SED RATE WESTERGREN Return in about 3 months (around 10/23/2018). Jasvir Boyd MD Referring Provider: JASVIR BOYD [[id number]] Allergies As of Date: 07/25/2018 Noted Allergy Reaction GLUTEN 10/06/2015 14 - Other: See Comments Comments: Upset Stomach; Intolerance SEPTRA (SULFAMETHOXAZOLE-TRIMETHO*10/06/2015 11 - Vomiting 14 - Other: See Comments Comments: Septra DS: Nausea SULFA (SULFONAMIDE ANTIBIOTICS) 08/16/2005 14 - Other: See Comments Comments: Patient Unsure.occurred post (Septra DS) N+V Date Reviewed: 07/25/2018 Reviewed by: Jasvir Boyd - Fully Assessed Reason for Visit: Follow Up [171] Primary Visit Diagnosis:Rheumatoid arthritis involving multiple sites with positive rheumatoid factor (HCC) [M05.79] Other Visit Diagnoses:Osteoporosis, unspecified osteoporosis type, unspecified pathological fracture presence [M81.0] Positive cardiolipin antibodies [R76.8] Other chronic pain [G89.29] Primary osteoarthritis of both hips [M16.0] Order(s):DXA-AXIAL SKELETON [[id number]] Order #: [id number] FUTURE CBC + DIFF [SQCBCDIF] Order #: [id number] FUTURE COMP METABOLIC PANEL [SQCMP] Order #: [id number] FUTURE C-REACTIVE PROTEIN (CRP) [SQCRP] Order #: [id number] FUTURE SED RATE WESTERGREN [SQWSR] Order #: [id number] FUTURE Prescriptions as of 07/25/2018 Sig: ABATACEPT 125 MG/ML SUBCUTANE* INJECT ONE SYRINGE (125 MG) S* VITAMIN E 400 UNIT CAPSULE Take 400 Units by mouth once * ASCORBIC ACID (VITAMIN C) 1,0* Take 2,000 mg by mouth twice * BLOOD SUGAR DIAGNOSTIC STRIPS 10 Each once daily. Use as in* CALCIUM CARBONATE 600 MG (1,5* Take 2 tablets by mouth once * CELECOXIB 200 MG CAPSULE TAKE 1 CAPSULE BY MOUTH EVERY* CHOLECALCIFEROL (VITAMIN D3) * Take 4,000 Units by mouth onc* COMPOUNDED PRESCRIPTION Flax seed oil 1000mg CYANOCOBALAMIN (VIT B-12) 1,0* Take 1,000 mcg by mouth once * CYCLOSPORINE 0.05 % EYE DROPS Use in eyes twice daily. INSULIN ASPART U-100 100 UNI* Subcutaneous 4 times a day - * INSULIN DEGLUDEC (U-100) 100 * Inject 16 Units subcutaneousl* PEN NEEDLE, DIABETIC 32 GAUGE* Inject 4 Units subcutaneously* LEFLUNOMIDE 10 MG TABLET TAKE 1 TABLET BY MOUTH ONCE D* LEVOBUNOLOL 0.5 % EYE DROPS Use 1 Drop in the left eye tw* LEVOTHYROXINE 100 MCG TABLET Take 100 mcg by mouth once da* LEVOTHYROXINE 112 MCG TABLET Take 112 mcg by mouth once da* LOSARTAN 25 MG TABLET Take 25 mg by mouth once davida* LUMIGAN 0.01 % EYE DROPS Use 1 Drop in both eyes daily* MILK THISTLE ORAL Take 300 mg by mouth. NIACIN ER 500 MG TABLET,EXTEN* Take 500 mg by mouth twice da* OMEGA-3 ACID ETHYL ESTERS 1 G* Take 2 capsules by mouth twic* SIMBRINZA 1 %-0.2 % EYE DROPS* USE 1 DROP IN EYES TWICE DAVIDA* SIMVASTATIN 5 MG TABLET Take 5 mg by mouth daily at b* Medication notes this encounter VITAMIN E 400 UNIT CAPSULE >> Lucian Cratagena CMA 07/25/2018 2:21 PM >> MITZI LUCIAN DARBY Jul 25, 2018 2:21 PM >> Lucian Cartagena CMA 07/25/2018 2:23 PM >> LUCIAN CARTAGENA CMA Jul 25, 2018 2:23 PM Evening Problem List As Of Date 07/25/2018 Noted Resolved Falls [W19.XXXA] INVALID FOR* DM (diabetes mellitus) [E11.9] INVALID FOR* SLE exacerbation [M32.9] INVALID FOR* Positive cardiolipin antibodies [R76.8] INVALID FOR* Sleep difficulties [G47.9] INVALID FOR* Residual stage of angle-closure glaucoma, bilat*INVALID FOR*01/17/2017 Rheumatoid arthritis (HCC) [M06.9] Osteoporosis [M81.0] Osteoarthritis of hip [M16.9] Degenerative joint disease of shoulder region [* More... Follow-up examination after eye surgery [Z09] INVALID FOR*06/09/2016 Dry eye syndrome [H04.129] INVALID FOR* Pseudophakia, left eye [Z96.1] INVALID FOR* Residual stage of angle-closure glaucoma of bot*INVALID FOR* Closed Colles' fracture of right radius [S52.53*INVALID FOR* Rheumatoid arthritis involving multiple sites w* Chronic pain [G89.29] INVALID FOR* Phacomorphic glaucoma of right eye, mild stage *INVALID FOR* More... Nuclear sclerosis, right [H25.11] INVALID FOR*05/11/2018 More... Disposition: Return in about 3 months (around 10/23/2018). Follow-up and Disposition History Recorded Questionnaire: RIGO ADAM YEARLY ADL ASSESSMENT Toileting -> Independent Bathing -> Independent Upper Body Dressing -> Independent Lower Body Dressing -> Independent Grooming/Hygiene -> Independent Self Feeding -> Independent Home Management (laundry/cleaning/chores/simple meal prep) -> Independent Encounter Status:Closed by JASVIR BOYD MD on 07/25/18 PROGRESS Observed: 07/25/2018 Status: COMPLETED Source: [facility] 1:57 PM CLINIC OTHER CAMPUS REPOSITORY HNO ID: [id number] Author: Jasvir Boyd Service: (none) Author Type: Physician Type: Progress Notes Filed: 07/25/2018 2:29 PM Note Text: Subjective HPI: Chelsea Naik is a 57 year old female who presents with rheumatoid arthritis, osteoporosis , history of multiple fractures, 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 Her pain today is 4/10 in her neck, lower back, knees. She has radiation of pain down her right arm into the right hand. She's had some pain in the shoulder. In April 2018 she was leaning across her bathtub and heard a crack in her ribs. She had x-rays and found to have fracture. Since then she's had increased pain in her neck and right arm. She says she had x-rays which showed lots of arthritis in different places and has been referred to physical therapy and they've been using TENS unit and ultrasound to help with her symptoms. She also had massage through them but noticed increased pain and has discontinued massage therapy. Her headaches are improved but she continues to have pain mostly in the right arm and neck. Since her last visit in April 2018 she's been taking Orencia subcutaneous weekly instead of every other week and has been more compliant. She hasn't missed any doses. She's on a day by 10 mg daily. She takes tramadol one tablet at bedtime. She gives a history of reaction gabapentin. 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 Since then she decided to hold off on treatment for osteoporosis and decided to discontinue Orencia. She's been off Orencia since April 2017-December 2017 and was flaring up from her rheumatoid She continues to take Celebrex 200 mg daily Her oral surgeon the past recommended she hold off on Orencia therapy . She was in remission while on Orencia in the past but disease has been very active since discontinuation of Orencia. 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 She's received one dose of prolia in November 2016. She did 2 doses of reclast in the past and prior to that Actonel for 3 years. She stopped Actonel in May 2012 because she had trouble swallowing In September 2015 she fell and fractured her right wrist-distal radius. She had a bone density recently September 2016 with a T score of -2.6 in the right femoral neck. There was a decline in the spine BMD but improvement in the hip BMD. She's had glaucoma in the eye and is legally blind in the left eye and has loss of peripheral vision on the right. She has difficulty driving especially at night. She's on calcium and vitamin D supplements. She is no longer taking tramadol and has been taking Celebrex 200 mg daily. In the past she had a Kenalog injection for left trochanteric bursitis which helped significantly. She wants to continue to avoid methotrexate-she did not like the way it made her feel. In June 26 2014 she took a fall on ice and fractured her left elbow-distal humerus and proximal ulna requiring surgery. She had a bone density recently which showed osteoporosis in the femoral neck with a T score of -2.9 in the right femoral neck in August 2014. She had discontinued methotrexate in the past and is doing well on monotherapy. She went on a gluten-free diet as both her kids are diagnosed with celiac. Testing on her was negative. She continues to be off Plaquenil. PAST MEDICAL HISTORY Diagnosis Date - Acquired hypothyroidism autoimmune - Closed fracture of foot 5th metatarsal shaft left. Jack Anderson MD - Degenerative joint disease of shoulder region Left. [facility]. 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 - On [facility] drug therapy - Orthostatic proteinuria intermittent. - Osteoarthritis of hip - Osteopenia - Osteoporosis - Rheumatoid arthritis involving multiple sites with positive rheumatoid factor (HCC) - Sjogren's syndrome (HCC) - Trochanteric bursitis bilateral - Type 1 diabetes mellitus (HCC) - Vitamin D deficiency - Vitiligo PAST SURGICAL HISTORY Procedure Laterality Date - EXCISION TONSIL LESIONS BILATERAL 1965 - IRIDOTOMY/IRIDECTOMY BY LASER Right 06/2008 Laser Peripheral Iridotomy (LPI) - IRIDOTOMY/IRIDECTOMY BY LASER Left 07/2009 Laser Peripheral Iridotomy (LPI) - LASIK 1996 both eyes - LIGATE FALLOPIAN TUBE 1996 Tubal ligation - PROCEDURE (SPECIFY) 06/2014 left elbow - PROCEDURE (SPECIFY) 1996 lump removed from right breast - REMV CATARACT EXTRACAP,INSERT LENS Left 06/03/16 PCIOL with Ab interno trabeculotomy OS Health Maintenance Procedures HBA1C due on 11/14/1964 URINE ALBUMIN:CREATININE RATIO due on 11/14/1969 DIABETIC FOOT EXAM due on 11/14/1969 ONE PNEUMOVAX PRIOR TO AGE 65 due on 1975 LDL CHOLESTEROL due on 11/14/1977 ANNUAL PCP TEAM CHRONIC DISEASE VISIT due on 11/14/1977 BP CONTROLLED (<130/80) due on 11/14/1977 DTAP,TDAP,TD(1 - Tdap) due on 11/14/1978 PAP EVERY 5 YEARS due on 11/14/1989 HPV EVERY 5 YEARS due on 11/14/1989 MAMMOGRAM due on 1999 HEPATITIS C SCREENING due on 2003 COLORECTAL CANCER SCREENING,SEE MODIFIER due on 11/14/2009 INFLUENZA(1) due on 04/08/2018 Discussed health maintenance, including regular aerobic exercise, low fat diet, and periodic exams. Health Maintenance Immunizations Given Immunizations: Immunization History Administered Date(s) Administered Influenza Seasonal Inj Age 3+ 05/07/2009 Influenza Seasonal Inj Quadrivalent Age 3+ 05/25/2017 PPD ([place]) 03/02/2006 Current Outpatient Prescriptions: abatacept (ORENCIA) 125 mg/mL syrg INJECT ONE SYRINGE (125 MG) SUBCUTANEOUSLY EVERY WEEK. REFRIGERATE. ALLOW TO WARM TO ROOM TEMPERATURE PRIOR TO ADMINISTRATION. alpha tocopheryl acetate (VITAMIN E) 400 unit capsule Take 400 Units by mouth once daily. Ascorbic Acid (VITAMIN C) 1,000 mg tablet Take 2,000 mg by mouth twice daily. blood sugar diagnostic test strip 10 Each once daily. Use as instructed calcium carbonate 600 mg-cholecalciferol 400 units 600 mg(1,500mg) -400 unit tab Take 2 tablets by mouth once daily. celecoxib (CELEBREX) 200 mg capsule TAKE 1 CAPSULE BY MOUTH EVERY DAY Cholecalciferol, Vitamin D3, (VITAMIN D-3) 2,000 unit cap Take 4,000 Units by mouth once daily. COMPOUNDED PRESCRIPTION Flax seed oil 1000mg cyanocobalamin (VITAMIN B-12) 1,000 mcg Tab Take 1,000 mcg by mouth once daily. cycloSPORINE 0.05 % drop Use in eyes twice daily. insulin aspart (NOVOLOG) 100 unit/mL Soln Subcutaneous 4 times a day - pt adjusts own sliding scale per blood glucose levels insulin degludec (TRESIBA FLEXTOUCH U-100) 100 unit/mL (3 mL) injection Inject 16 Units subcutaneously every morning. Insulin Milton, Disposable, 32 gauge x 5/32 ndle Inject 4 Units subcutaneously once daily. leflunomide (ARAVA) 10 mg tablet TAKE 1 TABLET BY MOUTH ONCE DAILY. INDICATIONS: RHEUMATOID ARTHRITIS levobunolol (BETAGEN) 0.5 % ophthalmic solution Use 1 Drop in the left eye twice daily. levothyroxine (SYNTHROID) 100 mcg tablet Take 100 mcg by mouth once daily. levothyroxine (SYNTHROID) 112 mcg tablet Take 112 mcg by mouth once daily. losartan 25 mg tablet Take 25 mg by mouth once daily. LUMIGAN 0.01 % drop ophthalmic drops Use 1 Drop in both eyes daily at bedtime. MILK THISTLE ORAL Take 300 mg by mouth. niacin ER (NIASPAN) 500 mg tablet Take 500 mg by mouth twice daily with meals. omega-3 acid ethyl esters (LOVAZA) 1 gram capsule Take 2 capsules by mouth twice daily. SIMBRINZA 1-0.2 % Ophth Susp USE 1 DROP IN EYES TWICE DAILY. simvastatin 5 mg tablet Take 5 mg by mouth daily at bedtime. No current facility-administered medications for this visit. ALLERGIES Allergen Reactions - Gluten Other: See Comments Upset Stomach; Intolerance - Septra [Sulfamethox* Vomiting, Other: See Comments Septra DS: Nausea - Sulfa (Sulfonamide * Other: See Comments Patient Unsure.occurred post (Dustin DS) N+V FAMILY HISTORY Problem Relation Age of Onset - Colon Cancer Father - Diabetes Father Type II - other (Pulmonary embolism) Mother Cause of - Age 41 - other (MS) Paternal Uncle Cause of - Stroke Maternal Grandfather Cause of - No Ocular Disease No Family History Social History Marital status: Spouse name: Years of education: Number of children: Occupational History Occupation Employer Comment retired from [employer] due to vision problems Social History Main Topics Smoking status: Never Smoker Smokeless tobacco: Never Used Alcohol use: Yes 1.5 oz/week Glasses of Wine (5oz): 1 per week Comment: 1-2 times a year Drug use: No Other Topics Concern Special Diet Not Asked Comment:Good diet Exercise Not Asked Comment:Excercises 5 or more days/wk History Review: I have reviewed and modified as needed, the following during this visit: Allergies, Past Medical History, Past Surgical History, Past Family History, Past Social History. Review of Systems CONSTITUTIONAL: Negative for weight gain, weight loss,weakness, fever, falls. Positive for fatigue EYES: Negative for Eye Pain, Eye Redness, Reduced Vision, Diplopia, Blurred Vision, Dryness, Feels like something in Eye(s), Eye Itching NOSE, THROAT: Negative for frequent or significant headaches, No changes in hearing or vision, no nose bleeds or other nasal problems NECK: Negative for lumps, goiter, pain and significant neck swelling RESPIRATORY: Negative for cough, hemoptysis, wheezing or shortness of breath CARDIOVASCULAR: No chest pain, arrhythmia, palpitations, heart murmurs GI: No nausea, vomiting, or diarrhea : No history of dysuria, frequency or incontinence Kidney disease/stones: no MUSCULOSKELETAL: Negative for ,muscle weakness, back pain , Positive for joint pain, positive for joint swelling, positive for morning stiffness SKIN: Negative for changes in the skin redness, easily bruising, pruritus, skin rash, malar rash, hives, sun sensitivity, tightness, nodules/bumps, hair loss, skin lesion, ulcerations, color changles of hands or feet in the cold. Negative for rash PSYCH: Negative for excessive worries, anxious, easily losing temper, feeling depressed, feeling agitated, diffuclty falling asleep, diffuclty staying asleep HEMATOLOGY/LYMPHOLOGY Negative for prolonged bleeding, bruising easily or swollen nodes ENDOCRINE: Negative for cold or heat intolerance, polyuria, polydipsia and goiter NEURO: Negative for headache, dizziness, syncope, muscle spasms, tingling, loss of consciousness, sensitivity or pain of hands and/or feet, memory loss, night sweats BP 134/74 Pulse 78 Temp 36.5 ?C (97.7 ?F) Ht 162.6 cm (5' 4) Wt 58.5 kg (129 lb) BMI 22.14 kg/m? Physical Exam GENERAL: Well appearing, alert, comfortable, in no acute distress, well-hydrated, well nourished. HEENT: Negative for external ears normal. Canals are clear. Both TMs visualized and are normal. Eye Exam normal. External nose normal, no nasal ulcer or throat ulcer. NECK: NECK Supple, no adenopathy; thyroid symmetric, normal size, no bruits CARDIAC: regular rate and rhythm, No murmur asculated. and Equal peripheral pulses RESPIRATORY: Lungs clear to auscultation. No wheezing, rhonchi, rales VASCULAR: RRR without murmur, gallop, or rubs. No ectopy. ABDOMEN: Soft, non tender. BS active. No masses or organomegaly. LYMPHATIC: Negative for adenopathy in the neck, axillae, groin, supraclavicular and auricular. NEURO: Motor and sensory exam normal MOTOR: Normal; including tone, gait, stressed gait, power and coordination. SKIN: Negative for alopecia, skin rash, malar rash, skin lesion, skin ulcer, pits, thickening, color changes, telangiectasias, nail changes, nail ridging, nail pitting, onycholysis MUSCULOSKELETAL: Mild impingement right shoulder but good range of motion Mild fullness and slight tenderness right second third MCP joints and right second third PIP joints All other joints without much fullness Slight impingement right hip Serology: : RF: +, CCP: +, MITCHELL: 1:640, DNA: +, Repeat double-stranded DNA negative Lab Results: April 2018 CMP with creatinine 0.61 CRP normal ESR 2 CBC normal Radiology Results: The full radiology report is copied below. X-ray left foot 09/2017 There is no acute bony abnormality identified. ?There is an old healed fracture of ?the mid shaft of the fifth metatarsal. ?No dislocation, stress related change or significant arthrosis. ?Normal soft tissues. EMG nerve conduction test February 2017 Right common peroneal mononeuropathy October 2016 X-ray right knee Normal X-ray of the hips 1. ?Minimal joint space narrowing involving the left hip. ? 2. ?Otherwise negative pelvis, and negative right and left hips. Bone density scan in September 2016 T score -2.6 right femoral neck Assessment (M05.79) Rheumatoid arthritis involving multiple sites with positive rheumatoid factor (HCC) (primary encounter diagnosis) (M81.0) Osteoporosis, unspecified osteoporosis type, unspecified pathological fracture presence (R76.8) Positive cardiolipin antibodies (G89.29) Other chronic pain (M16.0) Primary osteoarthritis of both hips 57-year-old with #1 sero positive rheumatoid arthritis with mild synovitis today- on leflunomide 10 mg daily and Orencia subcutaneous weekly-hasn't more compliant with Orencia since April 2018 and has less synovitis on exam today . In the past she had a great response to Orencia and was in remission but went off Orencia from April 2017 up until November 2017 with flare. Appears improved on exam #2 severe osteoporosis-recent bone density with a T score of -2.6 in the femoral neck, recent fracture right distal radius September 2016. history of fracture left distal humerus/proximal ulnar fracture in June 2014. On calcium and vitamin D supplementation. History of Actonel use in the past has been discontinued in 2011 because of GI intolerance-received first dose of Reclast in October 2014 and second dose October 2015. Has done one dose of prolia November 2016. Currently not on treatment for osteoporosis-was recommended Tymlos but wants to hold off since recently diagnosed with osteonecrosis of the jaw. Has elected to hold off on all treatment #3 recent right distal radius fracture, prior to that had left distal femur/proximal ulnar fracture post surgery-continues to have pain from past fractures #4 left shoulder impingement-improved with exercise and injection. Also has acromioclavicular joint arthrosis on the left and on MRI #5 history of left trochanteric bursitis with mild degenerative arthritis in the hip-improved with Kenalog injection in the past-mild symptoms today. Recent imaging continues to show mild degenerative arthritis left hip-continues to be symptomatic #6 type 1 diabetes on insulin, hypertension, hypothyroidism, vitiligo, depression, glaucoma, intermittent proteinuria #7 family history of celiac disease-both get her diagnosis celiac. She has gone on a gluten-free diet with overall improvement in generalized pain #8 history of TNF induced SLE - recent double-stranded DNA negative. History of positive anti-Cardiolipin antibodies and leukopenia. On aspirin. Plaquenil discontinued without problems. Stable #9 mild lumbar spondylosis-symptoms improved-intermittent symptoms #10sicca symptoms, glaucoma with loss of vision left eye and some symptoms on the right-has seen bar turner #11 cervicalgia and right upper extremity pain-radiculopathy?-Increased symptoms recently #12 right common peroneal mononeuropathy on EMG nerve conduction test in February 2017-stable #13 osteonecrosis of the jaw with concurrent infection-has seen oral surgeon. Treated with antibiotics since April 2017-. Not on treatment for osteoporosis . Had recent episode of osteonecrosis again and given another course of antibiotics Plan She's been more compliant with Orencia since April 2018- on Orencia subcutaneous weekly and appears to have much less synovitis on exam today Continue Orencia subcutaneous weekly Continue leflunomide 10 mg daily She's concerned about her recent pain in the right upper extremity and in the neck-concerning for cervical radiculopathy She's had x-rays and referred to physical therapy Obtain x-ray results If no response to conservative management may need MRI. May also need to consider EMG nerve conduction test She is history of reaction to gabapentin and wants to hold off on gabapentin or Lyrica On exam rheumatoid arthritis overall appears to be quite stable and not causing most of her symptoms since no indication to change biologic treatment. Would also like to avoid prednisone therapy with her history of osteoporosis Blood work to monitor medication and disease activity She's a history of osteonecrosis of the [id number]-xi with oral surgeon as needed Continue calcium and vitamin D supplements Symptomatic treatment of sicca symptoms Schedule bone density scan for September 2018 Continue Celebrex 200 mg daily She takes tramadol one tablet at bedtime-can continue Continue gluten-free diet Follow-up in 3-4 months During this patients visit I have spent more then 50% Face to Face time out of 40 mins in counseling regarding treatment options, medications and test results and coordinating care Plan Office Visit on 07/25/18 -DXA-AXIAL SKELETON -CBC + DIFF -COMP METABOLIC PANEL -C-REACTIVE PROTEIN (CRP) -SED RATE WESTERGREN Return in about 3 months (around 10/23/2018). Jasvir Boyd MD OBSOLETE Observed: 07/19/2018 Status: COMPLETED Source: [facility] 12:00 AM CLINIC OTHER CAMPUS REPOSITORY Refill ([facility]) CHELSEA NAIK ([id number]) 1960 F Date Time Provider Department 07/19/18 JASVIR BOYD During your visit today, we recorded the following information about you: Luis Fernando Horne CMA 07/19/2018 10:29 AM Signed Pharmacy faxed requesting the following refill. Pending Prescriptions Disp Refills CELECOXIB 200 MG CAPSULE 90 capsule 0 Sig: TAKE 1 CAPSULE BY MOUTH EVERY DAY ILAN: Yes Patient last appointment: 04/17/2018 Next Appointment: 07/25/2018 Patient Phone numbers: [phone] (home) Request is for script(s) to be escript to pharmacy. Luis Fernando Horne CMA Allergies As of Date: 07/19/2018 Noted Allergy Reaction GLUTEN 10/06/2015 14 - Other: See Comments Comments: Upset Stomach; Intolerance SEPTRA (SULFAMETHOXAZOLE-TRIMETHO*10/06/2015 11 - Vomiting 14 - Other: See Comments Comments: Septra DS: Nausea SULFA (SULFONAMIDE ANTIBIOTICS) 08/16/2005 14 - Other: See Comments Comments: Patient Unsure.occurred post (Septra DS) N+V Date Reviewed: 06/12/2018 Reviewed by: Jonatan Marquez - Fully Assessed Reason for Visit: Refill Request [94] Order(s):celecoxib (CELEBREX) 200 mg capsuleTAKE 1 CAPSULE BY MOUTH EVERY DAYDisp: 90 capsuleRfl: 0 Prescriptions as of 07/19/2018 Sig: CELECOXIB 200 MG CAPSULE TAKE 1 CAPSULE BY MOUTH EVERY* ABATACEPT 125 MG/ML SUBCUTANE* INJECT ONE SYRINGE (125 MG) S* VITAMIN E 400 UNIT CAPSULE Take 400 Units by mouth once * ASCORBIC ACID (VITAMIN C) 1,0* Take 2,000 mg by mouth twice * BLOOD SUGAR DIAGNOSTIC STRIPS 10 Each once daily. Use as in* CALCIUM CARBONATE 600 MG (1,5* Take 2 tablets by mouth once * CHOLECALCIFEROL (VITAMIN D3) * Take 4,000 Units by mouth onc* COMPOUNDED PRESCRIPTION Flax seed oil 1000mg CYANOCOBALAMIN (VIT B-12) 1,0* Take 1,000 mcg by mouth once * CYCLOSPORINE 0.05 % EYE DROPS Use in eyes twice daily. INSULIN ASPART U-100 100 UNI* Subcutaneous 4 times a day - * INSULIN DEGLUDEC (U-100) 100 * Inject 16 Units subcutaneousl* PEN NEEDLE, DIABETIC 32 GAUGE* Inject 4 Units subcutaneously* LEFLUNOMIDE 10 MG TABLET TAKE 1 TABLET BY MOUTH ONCE D* LEVOBUNOLOL 0.5 % EYE DROPS Use 1 Drop in the left eye tw* LEVOTHYROXINE 100 MCG TABLET Take 100 mcg by mouth once da* LEVOTHYROXINE 112 MCG TABLET Take 112 mcg by mouth once da* LOSARTAN 25 MG TABLET Take 25 mg by mouth once davida* LUMIGAN 0.01 % EYE DROPS Use 1 Drop in both eyes daily* MILK THISTLE ORAL Take 300 mg by mouth. 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 Follow-up examination after eye surgery [Z09] INVALID FOR*06/09/2016 Dry eye syndrome [H04.129] INVALID FOR* Pseudophakia, left eye [Z96.1] INVALID FOR* Residual stage of angle-closure glaucoma of bot*INVALID FOR* Closed Colles' fracture of right radius [S52.53*INVALID FOR* Rheumatoid arthritis involving multiple sites w* Chronic pain [G89.29] INVALID FOR* Phacomorphic glaucoma of right eye, mild stage *INVALID FOR* More... Nuclear sclerosis, right [H25.11] INVALID FOR*05/11/2018 More... Prescriptions ordered this encounter Disp Refills Start End CELECOXIB 200 MG CAPSULE 90 c* 0 07/19/2018 Sig: TAKE 1 CAPSULE BY MOUTH EVERY DAY Medications Discontinued During This Encounter celecoxib (CELEBREX) 200 mg capsule 90 c* 0 04/17/2018 07/19/2018 Route: ORAL Sig: Take 1 capsule by mouth once daily. Disc: Reason for discontinue is not on file. Encounter Status:Closed by JASVIR BOYD MD on 07/19/18 INITAL EVALUATION (1) Observed: 07/10/2018 Status: F Source: [place] - PT 10:[address] [facility] REPOSITORY [facility] [address] [place], [place] [address] Fax REHABILITATION SERVICES INITIAL EVALUATION MR#: [id number] Acct: [id number] Name: CHELSEA NAIK Rep #: [id number] : 1960 57 From: Kiki Thomas DPT Referring Dr.: Karin Segura DO Status: REG RCR Insurance: [employer] INSURANCE Patient's Visit Information CHELSEA NAIK is a 57 year old F referred to Physical Therapy by Karin Segura DO with a diagnosis of Cervical Radiculopathy. Date of Evaluation: 07/10/18 Physical Therapist: Kiki Thomas - Visit Plan Frequency: [...] base of the skull radiating to the shoulder right>left. Had x-rays which showed a lot of OA and problems with the discs in her neck. Tried to have massage at [facility] which made it feel better but then had another 1 and felt horrible by another massage therapist then back to origional then it was okay again. Jonugher who is a DYE AND CHEMICAL COORDINATOR told her to hold off on the massage until she figured out whats going on. Right now its moderate pain without any rhyme or reason. Last massage was 2 weeks ago around . It is very restrictive and giving her RAMON. If she is laying in bed and rolls onto her side she wakes up with numbness on the side of the shoulder she is laying on- once she rolls back to her back the numbness goes away with in a min or 2. Does have some right sided finger numbness but it comes and goes. Worst: 8/10 constant pain unable to determine what makes it worse or better. Eases: holding her shoulders back or rubbing the area. Describes the pain as throbbing but its a constant ache as well. RAMON- they fluctuate in the back and then into the front- does not typically get a RAMON. Retired- does not have a lot of activities throughout the day- walks a little bit in the house- reads a lot and is in a bible study and listens to things a lot on the ipad. Normally sits on the couch. Sleeps in a sleep number bed- disturbed- lays on her back. Right hand dominate. PMhx: RA, glaucoma, OA, type 1 DM, osteoporosis, osteonecrosis of the jaw- oral fascial surgeon- 10 months of antibiotics, neuropathy Meds: [place], Novalog, synthroid, losartin, prolosec, metanex, neuron, tinniasban, simvastatin, orencia, lumagin, timerol, symbrenza. - Objective Posture: FH, RS- very guarded. [...] and infraspinatus. ROM: Cervical: flexion- decreased by 50%, Extn: decreased by 50% SB: decreased by 25% Rot: decreased by 50% all with significant pain. Shoulder: Flexion: 100 degrees, Abd: 90 degrees, IR: bra line, ER: 30 degrees all with significant pain. Elbow: WNL, Wrist: WNL. Strength: Scap: poor, Cervical: 3+/5 isometrically, Shoulder: 3+/5 with pain in available range, elbow 4/5, Wrist: 4/5, [employer]: diminshed but equal the other side. Reflex: [...] Weeks Goal 4:: Patient will report no RAMON for 1 week Goal Time Frame: 4-6 Weeks - Rehabilitation Potential Physical Therapy Diagnosis: Patient presents with hypmobility- she has decreased ROM, strength and muscular endurance leading to poor posture and increased pain with ADL's. Rehabilitation Potential: Fair - Anticipated Interventions Patient/Client Instruction: Educate patient on: [...] to be FAXED BACK to us at [phone] for Medicare purposes. For Medicare only, by signing this I certify the plan of care. Please let me know if there are questions or concerns regarding this plan of care. Physician Signature: Date: <Electronically signed by Kiki Thomas DPT> 07/10/18 1051 CC: Karin Segura DO KAYLEIGH Signed CERV SPINE 4 OR 5 Observed: 06/21/2018 Status: F Source: [place] VIEWS 2:[address] [facility] REPOSITORY [facility] [address] [place] [address] Cerv Spine 4 or 5 Views MR#: [id number] Acct: [id number] Name: CHELSEA NAIK Rep #: [id number] : 1960 F 57 From: Silvano Decker MD PCP: Karin Segura DO Status: REG CLI Study: Cerv Spine 4 or 5 Views Date of Exam: 06/21/18 Exam# [id number] Ordering Dr: Karin Segura DO STUDY: X-RAY - CERVICAL SPINE REASON FOR EXAM: Female, 57 years old. Neck pain TECHNIQUE: 5 view(s) of the cervical spine were obtained. COMPARISON: None FINDINGS: Odontoid and lateral masses intact and aligned. Cervical vertebral body height and alignment are normal. Slight reversal of expected cervical lordosis. Moderately severe disc narrowing with endplate degenerative changes and uncovertebral joint hypertrophy at C5-C6 and C6-C7. Next line no significant disc degeneration of the remaining levels. In the oblique views, there is mild bony foraminal stenosis due to uncovertebral hypertrophy at C5-C7. There is mild multilevel facet arthropathy. Apical lungs clear, apical thoracic cage intact. Prevertebral soft tissues and airways normal. Craniofacial osseous structures within the field of view appear normal. RAD/Cerv Spine 4 or 5 Views IMPRESSION: Cervical degenerative disc disease is prominent at C5-C6 and C6-C7 with evidence of at least mild foraminal narrowing. Electronically Signed: Silvano Decker, at 17:49 EST Tel , Service support , CC: Karin Segura DO Customer Service Engineer: Signed RIBS UNI MIN 3V Observed: 06/21/2018 Status: F Source: [place] W/PA CHEST 2:[address] [facility] REPOSITORY [facility] Imaging [facility] [address] [place] [address] Ribs Uni Min 3V w/PA Chest MR#: [id number] Acct: [id number] Name: CHELSEA NAIK Rep #: [id number] : 1960 F 57 From: Silvano Decker MD PCP: Karin Segura DO Status: REG CLI Study: Ribs Uni Min 3V w/PA Chest Date of Exam: 06/21/18 Exam# [id number] Ordering Dr: Karin Segura DO STUDY: X-RAY - UNILATERAL RIBS ( RIGHT ) WITH CHEST REASON FOR EXAM: Female, 57 years old. Lead over railing into right ribs 3 weeks ago, pain. TECHNIQUE - RIBS: 3 view(s) of the ribs. TECHNIQUE - CHEST: PA COMPARISON: 09/13/2016 chest x-ray. FINDINGS - RIBS: Observed only one view, there appears to be a very slight cortical step-off in the distalmost right 8th rib, suspicious for a nondisplaced acute fracture. [place] image saved to the PACS archive. FINDINGS - CHEST: The lungs are clear and expanded. There is no demonstrated pleural abnormality. Normal size heart. Normal mediastinum and rio. Normal visualized pulmonary arteries. Normal visualized aortic arch and descending thoracic aorta. Normal visualized thoracic spine. Normal visualized ribs, clavicles, and shoulders. There is no demonstrated abnormality of the visualized soft tissue structures of the upper abdomen. RAD/Ribs Uni Min 3V w/PA Chest IMPRESSION: RIBS: Suspected nondisplaced fracture of the distal right atrium. CHEST: Normal x-ray examination of the chest otherwise. Electronically Signed: Silvano Decker, at 17:51 EST Tel , Service support , CC: Karin Segura DO Customer Service Engineer: Signed PROGRESS Observed: 06/12/2018 Status: COMPLETED Source: [place] 11:40 AM [facility] REPOSITORY HNO ID: [id number] Author: Jonatan Marquez Service: (none) Author Type: Physician Type: Progress Notes Filed: 06/12/2018 11:50 AM Note Text: Tmax: 20,30; Pachy: 464, 479 Lasers and Surgeries: OD: 05/11/2018 phaco-KDB for IOP = 24 on 4 meds with phacomorphic angle Lasik (for myopia per pt) 2007 PI OS: 06/04/2016 phaco-GATT for narrow angles, IOP fluctuating 12-19 Lasik (for myopia per pt) 2009 PI Ocular Medication Intol and Non-efficacy: Travatan-increased dryness Now on Timolol bid OU, Simbrinza BID OU, Lumigan OS, restasis bid OU Residual stage ACG, severe OS; mild OD -HVF 01/2018 OD 24% false (+), scattered point defects, nonglaucomatous OS dense inf arc encroaching fixation and sup NS - 04/2016 outside octopus VF with similar defect except it also had a dense sup NS Prior HVF here too unreliable to interpret -OCT 03/2018 OD sup thinning stable or sl worse 02/2017, widely split sup hump, 01/2017 OS severe diffuse depression -OD POM#1 phaco-KDB -IOP much improved from pre-op -refracts to 20/20 -OS: IOP marginal back on max meds (resumed timolol 03/2018) She feels timolol is causing irritation -OD: stop timolol and start Lumigan -OS: offered MP-TSCPC to get her off Lumigan. Declines for now. Try Levobunolol instead 3-4 months IOP check DM type I since age 8. -no retinopathy Dry Eye, Sjogren's syndrome (not addressed today) -tears and gel working well -started restasis 06/2016 (Dr. Dimas) - perhaps some benefit -follow Still dealing with jaw osteonecrosis from osteoporosis meds I, Jonatan Marquez MD, have edited as necessary and confirmed the relevant ophthalmic history, ROS, and neuro exam findings as obtained by others. I have seen and examined Chelsea Naik. I also have reviewed, edited as necessary, and agree with the assessment and plan and all of its relevant components as stated above. I have discussed the case and the management of this patient's care with the Resident/Fellow, if applicable. VITAMIN B12 Collected: 05/26/2018 Status: F Source: [place] 10:[address] [facility] REPOSITORY TYPE CODE TESTS RESULT OUT OF REFERENCE UNITS RANGE LAB L503.0105 211-911 pg/mL High Vitamin B12 1757 Performed By: #### L503.0105, L506.1000 #### [facility] [address] [place], [address] VITAMIN D,25 HYDROXY Collected: 05/26/2018 Status: F Source: [place] 10:[address] [facility] REPOSITORY TYPE CODE TESTS RESULT OUT OF RANGE REFERENCE UNITS LAB L506.1000 29.95-100.01 ng/mL Normal Vitamin D 63.2 25-OH Result Comment: Vitamin D 25(OH) Status Range Deficiency <20 ng/mL (50nmol/L) Insuffciency 20 - 30 ng/mL (50 - 75 nmol/L) Sufficiency 30 - 100 ng/mL (75 - 250 nmol/L) Toxicity >100 ng/mL (>250 nmol/L) Performed By: #### L503.0105, L506.1000 #### [facility] [address] [place], [address] HEMOGLOBIN A1C Collected: 05/26/2018 Status: F Source: [place] 10:[address] [facility] REPOSITORY TYPE CODE TESTS RESULT OUT OF RANGE REFERENCE UNITS LAB L501.9985 4.2-6.3 % High HGB A1C 6.6 Performed By: #### L501.9985 #### [facility] [address] [place], [address] BASIC METABOLIC Collected: 05/26/2018 Status: F Source: [place] PROFILE (BMP) 10:[address] [facility] REPOSITORY TYPE CODE TESTS RESULT OUT OF RANGE REFERENCE UNITS LAB L501.0100 74-106 mg/dL High GLU 118 Result Comment: Fasting Glucose result from 100 to 125 mg/dL suggests IMPAIRED HOMEOSTASIS per A.D.A. criteria. Please note revised GLUCOSE reference range effective 2017. LAB L501.1000 7-18 mg/dL Normal BUN 15 LAB L501.1100 0.55-1.02 mg/dL Normal CREAT,SERUM 0.71 Result Comment: The validity of the calculated GFR AND GFRAA in patients over 70 years has not been determined. Clinical correlation is essential. LAB L501.1110 >60 mL/min Normal EST GFR 89 Result Comment: Non- GFR Calc LAB L501.1115 >60 mL/min Normal EST GFR - AA 108 Result Comment: GFR Calc LAB L501.1300 10-20 RATIO High BUN/CRE 21.0 LAB L501.2200 8.5-10.1 mg/dL CA Normal 8.9 LAB L501.5300 136-145 mmol/L NA Normal 139 LAB L501.5600 3.5-5.1 mmol/L K Normal 4.4 LAB L501.5900 98-107 mmol/L CL Normal 101 LAB L501.6100 21.0-32.0 mmol/L Normal CO2 31.0 LAB L501.6200 5-15 Normal GAP 7 Performed By: #### L500.2500, L500.4100, L501.4100, L501.4405, L501.9520, L506.0400 #### [facility] [address] [place], [address] LIPID PROFILE Collected: 05/26/2018 Status: F Source: [place] 10:[address] [facility] REPOSITORY TYPE CODE TESTS RESULT OUT OF RANGE REFERENCE UNITS LAB L501.4900 200 mg/dL Normal CHOL 181 Result Comment: <200 mg/dL Desirable 200-240 mg/dL Borderline >240 mg/dL High Risk LAB L501.5000 mg/dL Normal TRIG 37 Result Comment: The drugs N-Acetylcysteine and Metamizole may falsely depress this assay. Serum Triglycerides Reference Interval Normal <150 mg/dL Borderline high 150 - 199 mg/dL High 200 - 499 mg/dL Very High > or = 500 mg/dL LAB L501.6400 mg/dL Normal HDL 82 Result Comment: The drugs N-Acetylcysteine and Metamizole may falsely depress this assay. Reference Range HDL <40 mg/dL Low HDL Cholesterol HDL >or= 60 mg/dL High HDL Cholesterol LAB L501.6500 0-130 mg/dL Normal LDL 92 LAB L501.6600 5-40 mg/dL Normal VLDL 7 Performed By: #### L500.2500, L500.4100, L501.4100, L501.4405, L501.9520, L506.0400 #### [facility] [address] [place], [address] AST(SGOT) Collected: 05/26/2018 Status: F Source: [place] 10:[address] [facility] REPOSITORY TYPE CODE TESTS RESULT OUT OF RANGE REFERENCE UNITS LAB L501.4100 15-37 U/L Normal AST 20 Performed By: #### L500.2500, L500.4100, L501.4100, L501.4405, L501.9520, L506.0400 #### [facility] [address] [place], [address] ALANINE AMINOTRANSFERAS Collected: 05/26/2018 Status: F Source: [place] (SGPT) 10:[address] [facility] REPOSITORY TYPE CODE TESTS RESULT OUT OF RANGE REFERENCE UNITS LAB L501.4405 13-56 U/L Normal ALT 26 Performed By: #### L500.2500, L500.4100, L501.4100, L501.4405, L501.9520, L506.0400 #### [facility] [address] [place], [address] THYROID STIM HORMONE Collected: 05/26/2018 Status: F Source: [place] (TSH) 10:[address] [facility] REPOSITORY TYPE CODE TESTS RESULT OUT OF RANGE REFERENCE UNITS LAB L501.9520 0.358-3.74 uIU/mL Normal TSH 1.94 Performed By: #### L500.2500, L500.4100, L501.4100, L501.4405, L501.9520, L506.0400 #### [facility] [address] [place], [address] T4 FREE DIRECT Collected: 05/26/2018 Status: F Source: [place] 10:[address] [facility] REPOSITORY TYPE CODE TESTS RESULT OUT OF RANGE REFERENCE UNITS LAB L506.0400 0.76-1.46 ng/dL Normal T4 FREE 1.20 DIRECT Performed By: #### L500.2500, L500.4100, L501.4100, L501.4405, L501.9520, L506.0400 #### [facility] [address] [place], [address] PROGRESS Observed: 05/22/2018 Status: COMPLETED Source: [place] 10:38 AM [facility] REPOSITORY HNO ID: [id number] Author: Jonatan Marquez Service: (none) Author Type: Physician Type: Progress Notes Filed: 05/22/2018 10:46 AM Note Text: Tmax: 20,30; Pachy: 464, 479 Lasers and Surgeries: OD: 05/11/2018 phaco-KDB for IOP = 24 on 4 meds with phacomorphic angle Lasik (for myopia per pt) 2007 PI OS: 06/04/2016 phaco-GATT for narrow angles, IOP fluctuating 12-19 Lasik (for myopia per pt) 2008 PI Ocular Medication Intol and Non-efficacy: Travatan-increased dryness Now on Timolol bid OU, Simbrinza BID OU, Lumigan OS, restasis bid OU PF tid OD, tara bid OD Residual stage ACG, severe OS; mild OD -HVF 01/2018 OD 24% false (+), scattered point defects, nonglaucomatous OS dense inf arc encroaching fixation and sup NS - outside octopus VF with similar defect except it also had a dense sup NS Prior HVF here too unreliable to interpret -OCT 03/2018 OD sup thinning stable or sl worse 02/2017, widely split sup hump, 01/2017 OS severe diffuse depression -OD POD#10 phaco-KDB -looks great -PF 3-2-1, tara ends when PF does -ok to decrease tara to qhs this Tuesday -sig PEE - use PFAT's -OS: IOP marginal back on max meds (resumed timolol 03/2018) -next visit refract OU, dilate OD DM type I since age 8. -no retinopathy Dry Eye, Sjogren's syndrome (not addressed today) -tears and gel working well -started restasis 06/2016 (Dr. Dimas) - perhaps some benefit -follow Still dealing with jaw osteonecrosis from osteoporosis meds I, Jonatan Marquez MD, have edited as necessary and confirmed the relevant ophthalmic history, ROS, and neuro exam findings as obtained by others. I have seen and examined Chelsea Naik. I also have reviewed, edited as necessary, and agree with the assessment and plan and all of its relevant components as stated above. I have discussed the case and the management of this patient's care with the Resident/Fellow, if applicable. PROGRESS Observed: 05/12/2018 Status: COMPLETED Source: [place] 9:21 AM [facility] REPOSITORY O ID: [id number] Author: Jonatan Marquez Service: (none) Author Type: Physician Type: Progress Notes Filed: 05/12/2018 9:26 AM Note Text: Tmax: 20,30; Pachy: 464, 479 Lasers and Surgeries: OD: 05/11/2018 phaco-KDB for IOP = 24 on 4 meds with phacomorphic angle Lasik (for myopia per pt) 2007 PI OS: 06/04/2016 phaco-GATT for narrow angles, IOP fluctuating 12-19 Lasik (for myopia per pt) 2008 PI Ocular Medication Intol and Non-efficacy: Travatan-increased dryness Now on Timolol bid OU, Simbrinza BID OU, Lumigan OS, restasis bid OU PF qid OD, tara bid OD Residual stage ACG, severe OS; mild OD -HVF 01/2018 OD 24% false (+), scattered point defects, nonglaucomatous OS dense inf arc encroaching fixation and sup NS - outside octopus VF with similar defect except it also had a dense sup NS Prior HVF here too unreliable to interpret -OCT 03/2018 OD sup thinning stable or sl worse 02/2017, widely split sup hump, 01/2017 OS severe diffuse depression -OD POD#1 phaco-KDB -looks great -PF 4-3-2-1, tara ends when PF does -OS: IOP perfect back on max meds (resumed timolol last visit 03/2018) DM type I since age 8. -no retinopathy Dry Eye, Sjogren's syndrome (not addressed today) -tears and gel working well -started restasis 06/2016 (Dr. Dimas) - perhaps some benefit -follow Still dealing with jaw osteonecrosis from osteoporosis meds I, Jonatan Marquez MD, have edited as necessary and confirmed the relevant ophthalmic history, ROS, and neuro exam findings as obtained by others. I have seen and examined Chelsea Naik. I also have reviewed, edited as necessary, and agree with the assessment and plan and all of its relevant components as stated above. I have discussed the case and the management of this patient's care with the Resident/Fellow, if applicable. ANES POST Observed: 05/11/2018 Status: COMPLETED Source: [place] 8:34 AM [facility] REPOSITORY HNO ID: [id number] Author: Katie Mondragon Service: Anesthesiology Author Type: Anesthesiologist Type: Anesthesia PostOp Filed: 05/11/2018 8:35 AM Note Text: POST ANESTHESIA EVALUATION NOTE SERVICE DATE: 05/11/2018 SERVICE TIME: 8:34 AM : 1960 Vitals: There were no vitals filed for this visit. 05/11/18 0817 05/11/18 0823 05/11/18 0826 05/11/18 0829 BP: 121/63 120/63 114/56 114/51 05/11/18 0823 05/11/18 0826 05/11/18 0828 05/11/18 0829 Pulse: (!) 49 (!) 47 (!) 49 (!) 50 05/11/18 0812 05/11/18 0817 05/11/18 0823 05/11/18 0826 Resp: 18 18 17 16 05/11/18 0817 05/11/18 0823 05/11/18 0826 05/11/18 0828 SpO2: 100% 100% 100% 100% Validated Vital Signs: Yes POST ANES STATUS: PACU/ICU Patient Condition: Stable Neurological Status: Awake AND alert. Pulmonary Status: Breathing comfortably on supplemental oxygen. Airway Control: Returned to baseline unsupported. Cardiovascular Status: Stable Pain: Adequately controlled Postoperative Nausea/Vomiting: pt became bradycardic and nauseous. Treated with Atropine with improvement. Postoperative Hydration Status: Adequate. Intra-Operative Events: No Significant Anesthesia Events Anesthetic Complications: None Recommendation: Continue current plan of care Other Remarks: SIGNATURE: Katie Mondragon DO PATIENT NAME: Chelsea Naik DATE: May 11, 2018 TIME: 8:34 AM PAGER/CONTACT #: [phone] NURSING PROG Observed: 05/11/2018 Status: COMPLETED Source: [place] 8:30 AM [facility] REPOSITORY HNO ID: [id number] Author: Cristina RamachandranRn) Flora Scott RN Service: Nursing Author Type: Registered Nurse Type: Nursing Progress Note Filed: 05/11/2018 8:31 AM Note Text: ATROPINE 0.2MG DR. JOSHUA FOR A TOTAL O.6MG. HR 57, HOB FLAT, PT. FEELING A LITTLE BETTER. PT ED Observed: 05/11/2018 Status: COMPLETED Source: [place] 8:27 AM [facility] REPOSITORY HNO ID: [id number] Author: Cristina RamachandranRn) Flora Scott RN Service: Nursing Author Type: Registered Nurse Type: Patient Education Filed: 05/11/2018 8:28 AM Note Text: ATROPINE 0.2MG GIVEN BY DR. JOSHUA. HR 46, DR. JOSHUA AT BEDSIDE. PT ED Observed: 05/11/2018 Status: COMPLETED Source: [place] 8:24 AM [facility] REPOSITORY HNO ID: [id number] Author: Cristina RamachandranRn) Flora Scott RN Service: Nursing Author Type: Registered Nurse Type: Patient Education Filed: 05/11/2018 8:27 AM Note Text: DR. NOE AT BEDSIDE FOR PERSISTENT SINUS SAUMYA. HR 47- 50 PT REMAINS NAUSEATED, SL. LIGHTHEADED, HOB FLAT. ATROPINE 0.2MG GIVEN IV BY DR. JOSHUA. PT ED Observed: 05/11/2018 Status: COMPLETED Source: [place] 8:20 AM [facility] REPOSITORY HNO ID: [id number] Author: Cristina RamachandranRn) Flora Scott RN Service: Nursing Author Type: Registered Nurse Type: Patient Education Filed: 05/11/2018 8:21 AM Note Text: AMBULATORY PATIENT EDUCATION NOTE READINESS TO LEARN COGNITIVE ABILITY: Alert and oriented MOTIVATION TO LEARN: Eager FAMILY SUPPORT: High - Very involved in pt care INSTRUCTION PROVIDED TO: Patient and family member PATIENT LEARNS BEST BY: Individual Instruction Written Instruction - Hand-outs Verbal Instruction FACTORS AFFECTING LEARNING: None PHYSICAL LIMITATIONS AFFECTING LEARNING: Pain LEARNING RESPONSE DIAGNOSIS: Cataract, Acquired EDUCATION TOPIC/ TEACHING POINTS: Post-op Teaching: Symptom Management METHOD OF INSTRUCTION: Individual instruction Written instruction - handouts Verbal instruction PATIENT / FAMILY RESPONSE: Performs skill independently: Verbalizes understanding. FOLLOW-UP PLAN: Recommend - Recommend continued instruction and follow up as directed SUPPLEMENTAL MATERIAL: [place] Post-Operative Instructions Cataract or Glaucoma Surgery Instructions REFERRAL (RECOMMENDATION): None Electronically Signed By Cristina Scott RN In Department: OPHTHALMOLOGY NURSING PROG Observed: 05/11/2018 Status: COMPLETED Source: [place] 8:08 AM [facility] REPOSITORY HNO ID: [id number] Author: Cristnia (Rn) Flora Scott RN Service: Nursing Author Type: Registered Nurse Type: Nursing Progress Note Filed: 05/11/2018 8:09 AM Note Text: zofran 4mg iv by Suzanne Gunn CRNA for nauea with small emesis in arrival to post-op. OPERATIVE NO Observed: 05/11/2018 Status: COMPLETED Source: [place] 8:00 AM [facility] REPOSITORY HNO ID: [id number] Author: Jonatan Marquez Service: Ophthalmology Author Type: Physician Type: Operative Report Filed: 05/11/2018 8:01 AM Note Text: OPERATIVE REPORT NAME: Chelsea Naik LOG ID: [id number] SURGERY DATE: 05/11/2018 INCISION/PROCEDURE START TIME: 7:48 AM INCISION CLOSE/PROCEDURE END TIME: 7:58 AM Surgeon(s) and Role: * Jonatan Marquez - Primary * Vanita Eugene (Fel) - Fellow OPERATION: 1) Phacoemulsification with intraocular lens implantation, right eye. 2) Goniotomy with a [place] Dual Blade, right eye ANESTHESIA: Monitored anesthesia care, 2% lidocaine jel topically, 1% preservative free lidocaine intracamerally. PREOPERATIVE DIAGNOSIS: 1) Visually significant nuclear sclerotic cataract, right eye. 2) Mild stage phacomorphic glaucoma, right eye. POSTOPERATIVE DIAGNOSIS: Same. OPERATIVE INDICATIONS: The patient has a functionally significant cataract as well as glaucoma. The risks, benefits, and alternatives of cataract extraction with intraocular lens implantation and goniotimy were discussed with the patient who agreed to have the procedure done. OPERATIVE PROCEDURE: Preoperatively, 2% lidocaine gel was instilled into the operative eye. The patient was taken to the operating room in a supine position on the operating table. The operative eye was then prepped with povidone-iodine and draped in the usual sterile fashion for intraocular surgery. Under the operating microscope, a temporal paracentesis was created. A small amount of preservative-free 1% lidocaine was instilled into the anterior chamber. The anterior chamber was then deepened with Viscoat. A temporal biplanar clear corneal incision was created with a 2.4mm keratome. The patient's head and microscope were then tilted to allow visualization of the nasal trabecular meshwork with a direct gonioscopy lens. A [place] Dual Blade was used to remove about 90 degrees of nasal trabecular meshwork tissue, and the outer wall of Schlemm's was visualized. The patient's head and microscope were then returned to a neutral position and additional viscoelastic was placed. A cystitome and Utrata forceps were used to fashion a continuous curvilinear capsulorrhexis. Balanced salt solution was used to hydrodissect and hydrodelineate the nucleus. The phacoemulsification tip was introduced into the eye, and anterior cortex was aspirated. The nucleus was removed ultrasound delivering a CDE of 5.28%. Irrigation and aspiration was used to remove residual cortex. The capsular bag was examined and found to be intact. The anterior chamber was deepened with Healon, and the lens was injected into the capsular bag. Irrigation and aspiration was used to remove residual viscoelastic. The incisions were hydrated, examined, and found to be watertight. Cefuroxime 1mg in 0.1ml was instilled into the anterior chamber. The incisions were re-examined to ensure they were water-tight. The drapes were removed, apraclonidine 1% was instilled onto the eye, and the patient was taken to the recovery area in stable condition. IMPLANTABLE DEVICES: Implant Name Type Inv. Item Serial No. Relief Map Modeler Lot No. LRB Model Num No. Used LENS ACRYSOF IQ +26.5 DIOPTER 0 D BICONVEX ACRYLIC 13MM IOL 1 PIECE - [id number] Intraocular Lens LENS ACRYSOF IQ +26.5 DIOPTER 0 D BICONVEX ACRYLIC 13MM IOL 1 PIECE [id number] [facility] Right [id number] 26.5 1 ESTIMATED BLOOD LOSS: Minimal COMPLICATIONS: None DRAINS: None SPECIMENS: None I performed the entire procedure. Jonatan Marquez M.D. NURSING PROG Observed: 05/11/2018 Status: COMPLETED Source: [place] 7:03 AM [facility] REPOSITORY HNO ID: [id number] Author: Inna RamachandranRn) BELEN French Service: (none) Author Type: Registered Nurse Type: Nursing Progress Note Filed: 05/11/2018 7:03 AM Note Text: PRE OP LEARNING ASSESSMENT PROCEDURE/SURGERY: SURGERY: Phaco READINESS TO LEARN COGNITIVE ABILITY: Alert and oriented MOTIVATION TO LEARN: Interested FAMILY SUPPORT: High - Very involved in pt care PATIENT LEARNS BEST BY: Individual Instruction Written Instruction - Hand-outs Verbal Instruction FACTORS AFFECTING LEARNING: None PHYSICAL LIMITATIONS AFFECTING LEARNING: None Electronically Signed By: Inna French RN In Department: OPHTHALMOLOGY HISTORY PHYSICAL Observed: 05/01/2018 Status: COMPLETED Source: [place] 10:09 AM [facility] REPOSITORY HNO ID: [id number] Author: Coleen Azul (Pa) Service: (none) Author Type: Physician Tester Sound Type: HANDP Filed: 05/01/2018 12:41 PM Note Text: HISTORY AND PHYSICAL EXAMINATION SERVICE DATE: 05/01/2018 SERVICE TIME: 10:09 AM PRIMARY CARE PHYSICIAN: Karin Segura MD REASON FOR VISIT: Chelsea Naik is a 57 year old female who is scheduled for Phacoemulsification cataract implant intraocular lens at the request of Dr. Jonatan Marquez for consultation. My final recommendation will be communicated back to the requesting physician by way of shared medical record or letter. The patient has the following: ACTIVE PROBLEM LIST [place] Dm (Diabetes Mellitus) (Hcc) Sle Exacerbation (Hcc) Positive Cardiolipin Antibodies Sjogren's Syndrome (Hcc) Sleep Difficulties Rheumatoid Arthritis (Hcc) Osteoporosis Osteoarthritis of Hip Degenerative Joint Disease of Shoulder Region Dry Eye Syndrome Pseudophakia, Left Eye Residual Stage of Angle-Closure Glaucoma of Both Eyes Closed Colles' Fracture of Right Radius Rheumatoid Arthritis Involving Multiple Sites With Positive Rheumatoid Factor (Hcc) Chronic Pain Phacomorphic Glaucoma of Right Eye, Mild Stage Nuclear Sclerosis, Right Subjective CHIEF COMPLAINT: Decreased vision HPI: 57 year old female, diabetic, presents with c/o decreased visual acuity and increased intraocular pressure in her right eye. Pt reports gradual onset with her decreased vision, interferes with reading, tv viewing and night time driving secondary to glare. She states she had increased IOP at last office visit during routine measurements. She has a h/o glaucoma for which she has been treated. She denies pain, photophobia and diplopia. PAST MEDICAL HISTORY Diagnosis Date - Acquired hypothyroidism autoimmune - Closed fracture of foot 5th metatarsal shaft left. Jack Anderson MD - Degenerative joint disease of shoulder region Left. MRI [facility]. 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 - On mcfp drug therapy - Orthostatic proteinuria intermittent. - Osteoarthritis of hip - Osteopenia - Osteoporosis - Rheumatoid arthritis involving multiple sites with positive rheumatoid factor (HCC) - Sjogren's syndrome (HCC) - Trochanteric bursitis bilateral - Type 1 diabetes mellitus (HCC) - Vitamin D deficiency - Vitiligo PAST SURGICAL HISTORY Procedure Laterality Date - EXCISION TONSIL LESIONS BILATERAL 1965 - IRIDOTOMY/IRIDECTOMY BY LASER Right 06/2008 Laser Peripheral Iridotomy (LPI) - IRIDOTOMY/IRIDECTOMY BY LASER Left 07/2009 Laser Peripheral Iridotomy (LPI) - LASIK 1996 both eyes - LIGATE FALLOPIAN TUBE 1996 Tubal ligation - PROCEDURE (SPECIFY) 06/2014 left elbow - PROCEDURE (SPECIFY) 1996 lump removed from right breast - REMV CATARACT EXTRACAP,INSERT LENS Left 06/03/16 PCIOL with Ab interno trabeculotomy OS FAMILY HISTORY Problem Relation Age of Onset - Colon Cancer Father - Diabetes Father Type II - other (Pulmonary embolism) Mother Cause of - Age 41 - other (MS) Paternal Uncle Cause of - Stroke Maternal Grandfather Cause of SOCIAL HISTORY: Social History Marital status: Spouse name: Years of education: Number of children: Occupational History 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 abatacept (ORENCIA) 125 mg/mL syrg INJECT ONE SYRINGE (125 MG) SUBCUTANEOUSLY EVERY WEEK. REFRIGERATE. ALLOW TO WARM TO ROOM TEMPERATURE PRIOR TO ADMINISTRATION. celecoxib (CELEBREX) 200 mg capsule Take 1 capsule by mouth once daily. pilocarpine (PILOCAR, ISOPTO CARPINE) 1 % ophthalmic solution Use 1 Drop in the right eye twice daily. For use AFTER surgery Taking LUMIGAN 0.01 % drop ophthalmic drops Use 1 Drop in both eyes daily at bedtime. Taking leflunomide (ARAVA) 10 mg tablet TAKE 1 TABLET BY MOUTH ONCE DAILY. INDICATIONS: RHEUMATOID ARTHRITIS Taking SIMBRINZA 1-0.2 % Ophth Susp USE 1 DROP IN EYES TWICE DAILY. Taking cycloSPORINE 0.05 % drop Use in eyes. Taking timolol maleate (TIMOPTIC) 0.5 % ophthalmic solution 1 DROP EVERY MORNING INTO RIGHT EYE AND 1 DROP TWICE A DAY INTO LEFT EYE Taking omega-3 acid ethyl esters (LOVAZA) 1 gram capsule Take 2 capsules by mouth twice daily. Taking calcium carbonate 600 mg-cholecalciferol 400 units 600 mg(1,500mg) -400 unit tab Take 2 tablets by mouth once daily. Taking blood sugar diagnostic test strip 10 Each once daily. Use as instructed Taking levothyroxine (SYNTHROID) 112 mcg tablet Take 112 mcg by mouth once daily. Not Taking Insulin [place], Disposable, 32 gauge x 5/ ndle Inject 4 Units subcutaneously once daily. Taking insulin aspart (NOVOLOG) 100 unit/mL Soln Subcutaneous 4 times a day - pt adjusts own sliding scale per blood glucose levels Taking losartan 25 mg tablet Take 25 mg by mouth once daily. Taking MILK THISTLE ORAL Take 300 mg by mouth. Taking COMPOUNDED PRESCRIPTION Flax seed oil 1000mg Taking Ascorbic Acid (VITAMIN C) 1,000 mg tablet Take 1,000 mg by mouth once daily. Taking simvastatin 5 mg tablet Take 5 mg by mouth daily at bedtime. Taking Cholecalciferol, Vitamin D3, (VITAMIN D-3) 2,000 unit cap Take by mouth. Taking cyanocobalamin (VITAMIN B-12) 1,000 mcg Tab Take 1,000 mcg by mouth once daily. Taking No medication comments found. ALLERGIES Allergen Reactions - Gluten Other: See Comments Upset Stomach; Intolerance - Septra [Sulfamethox* Vomiting, Other: See Comments Septra DS: Nausea - Sulfa (Sulfonamide * Other: See Comments Patient Unsure. REVIEW OF SYSTEMS: PAIN ASSESSMENT: General: No weight loss, malaise or fevers. Neuro: No history of TIA's, stroke, RULES EXAMINER tumor, impaired sensorium, hemiplegia, paraplegia or quadraplegia. No neurological symptoms or problems.+glaucoma Respiratory: Positive for URI < 2 weeks, completed course of amoxicillin, symptoms have resolved denies any cough, fever, chills, Negative for Asthma, COPD, Current cough, Daily bronchodilator use for previous 3 months, Home O2, Pneumonia within 6 weeks (date), Tobacco Use, URI < 2 weeks Cardiovascular: Positive for: Hypertension, Negative for Recent FL, Arrhythmia, CAD, Chest Pain, PVD, Valvular Heart Disease, DVT/PE GI: Positive for GERD? Was advised to take Prilosec by her physician secondary to DM, denies abdominal pain, nausea/vomiting, liver disease, hepatitis : No history of dysuria, frequency or incontinence,, stones or chronic kidney disease DIRECTOR OF INFECTION PREVENTION: Negative for abnormal vaginal bleeding, abnormal vaginal discharge. : Denies, No LMP recorded. Patient is postmenopausal. Endocrine: +hypothyroid +DM BS this am 112 post breakfast +DPN kierra lower ext Hematology: No history of bleeding or clotting disorder. Pt is not taking anti-coagulation or platelet medications. No history of hematological symptoms or problems. Oncology: No history of CA metastasis, chemo within 30 days, or radiotherapy within 90 days. Has not lost 10% of body wt in 6 months. No history of oncological symptoms or problems. Psych: No history of psychiatric symptoms or problems. Musculoskeletal: positive forRA, OA, Lupus, Raynauds Skin: Negative for lesions, rash and itching., Vitiligo per EMR Objective PHYSICAL EXAM: VITALS: BP 103/55 (BP Site: Right Arm, BP Position: Sitting) Pulse 63 Temp 36.5 ?C (97.7 ?F) (Temporal Artery) Ht 161.3 cm (5' 3.5) Wt 59 kg (130 lb) SpO2 100% BMI 22.67 kg/m? General: Alert and oriented Skin: Normal color, no rash, no lesions. HEENT: EOM, pupils equal, round and reactive., No carotid bruits Cardiovascular: Normal S1 AND S2, no rubs, murmurs or gallops. No JVD. Pulse regular. Lungs: Normal breath sounds, no wheezes or crackles. Abdomen: Soft, non-tender, no rigidity. Extremities: No deformity, no edema or tenderness, no joint swelling or clubbing. Neurological: Normal cognition and motor skills. Pulses: Carotid and radial pulses normal +2. Radial pulses 2+ Diagnostic tests reviewed for today's visit: Lab Value Units Date High Low HB 13.5 g/dL 04/17/2018 15.7 11.2 HCT 41.6 % 04/17/2018 44.9 34.1 WBC 4.07 thou/c* 04/17/2018 10.04 3.98 PLT 143 thou/c* 04/17/2018 369 182 NA 138 mEq/L 04/17/2018 145 136 K 4.6 mEq/L 04/17/2018 5.1 3.5 GLUC 130 mg/dL 04/17/2018 99 70 BUN 14 mg/dL 04/17/2018 18 7 CREAT 0.61 mg/dL 04/17/2018 0.95 0.51 PTSEC No results within date range. INR No results within date range. APTT No results within date range. ALT 35 U/L 04/17/2018 78 12 AST 26 U/L 04/17/2018 37 9 TBILI 0.7 mg/dL 04/17/2018 1.0 0.2 TSH No results within date range. Lab Value Units Date High Low HCGQT No results within date range. UHCG No results within date range. HCG, BODY* No results within date range. Lab Value Units Date High Low ABORHD No results within date range. ABSCREEN No results within date range. No results found for: HBA1C No new labs or tests Assessment ASSESSMENT Patient has the following medical conditions Senile cataract RA + pharm mgmt Lupus OA Chronic pain Diabetes + oral meds and insulin BS this am 112 postprandial Hypothyroid rx tx HTN rx tx Completed ATB on 04/30/18 for URI states cough, sore throat have resolved Glaucoma GERD METS: Climb a flight of stairs or walk up a hill (5.50 METs) Patient denies any chest pain or undue shortness of breath with the above physical activity. ASA Class: 3 ANESTHESIA FINDINGS: Intubation History: No history of difficult intubation Significant Anesthesia Considerations: None Airway Exam: General: Normal appearance Mallampati Score is CLASS II ULBT: Class I - Lower incisors can bite the upper lip above the elba line Neck: Normal appearance and function, Distance from hyoid to mentum during neck extension is at least 3 finger breaths Mouth: Normal tongue size and Mouth opening greater than 2 finger breaths Dentition: Caps/crowns Airway History: No abnormal airway history STOP BANG Score: Criteria: Hypertension Age over 50 (57 year old) Score = 2 PLAN This patient is optimally prepared for surgery. CONSULTS: Patient does not require consults for optimization at this time. The Following Tests/Procedures Have Been Initiated: Labs not indicated per [facility] protocol, EKG not indicated per [facility] protocol Planned Anesthetic: MAC Instructions Given to Patient: Patient given verbal and written preop instructions and voices comprehension and compliance. SIGNATURE: Coleen Azul PA-C PATIENT NAME: Chelsea Naik DATE: May 01, 2018 TIME: 10:09 AM PAGER/CONTACT #: [email or web address] Collected: 04/17/2018 Status: F Source: [facility] 12:15 PM [facility] SYSTEM REPOSITORY TYPE CODE TESTS RESULT OUT OF REFERENCE UNITS RANGE LAB WBC(LOINC) 3.98-10.04 thou/cmm WBC 4.07 LAB RBC(LOINC) 3.93-5.22 mil/cmm RBC 4.29 LAB HGB(LOINC) 11.2-15.7 g/dL Hgb 13.5 LAB HCT(LOINC) 34.1-44.9 % Hct 41.6 LAB MCV(LOINC) 79.4-94.8 fl MCV High 97.0 LAB MCH(LOINC) 25.6-32.2 pg MCH 31.5 LAB MCHC(LOINC 31.6-34.8 % ) MCHC 32.5 LAB RDW(LOINC) 11.7-14.4 % RDW 12.3 LAB RDWSD(LOIN 36.4-46.3 fl C) RDW SD 44.0 LAB PLT(LOINC) 182-369 thou/cmm Low Platelet 143 LAB MPV(LOINC) 9.4-12.3 fl MPV 11.4 LAB SEG(LOINC) % Seg Neutrophil 49.7 LAB IGRE(LOINC % ) Immature Grans 0.20 LAB LYMPH(LOIN % C) Lymphocyte 32.7 LAB MNO(LOINC) % Monocyte 10.6 LAB EOSIN(LOIN % C) Eosinophil 6.1 LAB BASO(LOINC % ) Basophil 0.7 LAB SEGN(LOINC 1.56-6.13 thou/cmm ) Abs. Neut (ANC) 2.02 LAB IGAB(LOINC 0.00-0.05 thou/cmm ) Abs Immature Grans 0.01 LAB LYMN(LOINC 1.18-3.74 thou/cmm ) Abs. Lymph 1.33 LAB MONON(LOIN 0.27-0.70 thou/cmm C) Abs. [place] 0.43 LAB EOSN(LOINC 0.00-0.31 thou/cmm ) Abs. Eosin 0.25 LAB BASON(LOIN 0.01-0.08 thou/cmm C) Abs. Baso 0.03 Performed By: #### [id number] #### [place] [id number] COMPREHENSIVE PANEL Collected: 04/17/2018 Status: F Source: [facility] 12:15 PM HEALTH SYSTEM REPOSITORY TYPE CODE TESTS RESULT OUT OF REFERENCE UNITS RANGE LAB NA(LOINC) 136-145 mEq/L Sodium Blood 138 LAB K(LOINC) 3.5-5.1 mEq/L Potassium Blood 4.6 LAB CL(LOINC) 98-107 mEq/L Chloride Blood 102 LAB CO2(LOINC) 21-32 mEq/L CO2 Blood 30 LAB GLU(LOINC) 70-99 mg/dL Glucose High Blood 130 LAB BUN(LOINC) 7-18 mg/dL BUN Blood 14 LAB CREA(LOINC 0.51-0.95 mg/dL ) Creatinine Blood 0.61 LAB CA(LOINC) 8.5-10.1 mg/dL Calcium Blood 9.0 LAB ALB(LOINC) 3.4-5.0 g/dL Albumin Blood 3.9 LAB TP(LOINC) 6.4-8.2 g/dL Total Protein 6.6 LAB AST(LOINC) 9-37 U/L AST-SGOT Blood 26 LAB ALT(LOINC) 12-78 U/L ALT-SGPT Blood 35 LAB ALKP(LOINC 46-116 U/L ) Alk Phosphatase 95 LAB BILIT(LOIN 0.2-1.0 mg/dL C) Total Bilirubin 0.7 LAB ANGAP(LOIN 8-16 C) Anion Gap 11 Performed By: #### P14 #### [place] [id number] CRP Collected: 04/17/2018 Status: F Source: [facility] 12:15 PM HEALTH SYSTEM REPOSITORY TYPE CODE TESTS RESULT OUT OF RANGE REFERENCE UNITS LAB CRP3(LOINC) 0.00-0.30 mg/dL CRP < 0.29 Performed By: #### CRP3 #### [facility] [address] [place] [id number] MDRD GFR Collected: 04/17/2018 Status: F Source: [facility] 12:15 PM HEALTH SYSTEM REPOSITORY TYPE CODE TESTS RESULT OUT OF RANGE REFERENCE UNITS LAB GFRFN(LOINC >60mL/min/1.73m ) 2 eGFR >60 Result Comment: If the patient is , multiply the result by 1.210. Performed By: #### GFR #### [facility] [address] [place] [id number] SED RATE Collected: 04/17/2018 Status: F Source: [facility] 12:15 PM HEALTH SYSTEM REPOSITORY TYPE CODE TESTS RESULT OUT OF RANGE REFERENCE UNITS LAB ESR(LOINC) 0-20 mm/hr Sed Rate 2 Performed By: #### ESR #### [facility] [address] [place] [id number] PROGRESS Observed: 04/17/2018 Status: COMPLETED Source: [place] 11:36 AM [facility] REPOSITORY O ID: [id number] Author: Jasvir Boyd Service: (none) Author Type: Physician Type: Progress Notes Filed: 04/17/2018 12:23 PM Note Text: Subjective HPI: Chelsea Naik is a 57 year old female who presents with rheumatoid arthritis, osteoporosis , history of multiple fractures, 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 She's on Orencia subcutaneous but has been taking it every other week and has missed several doses recently because she had an open wound on her right foot which he believes was infected and had to stop medication for around 3 weeks, prior to that she had another episode of osteonecrosis of the jaw for which she was given antibiotics for a month. Her pain is 6/10 in the right hand, wrists, elbows, shoulders and knees. She also has pain in the right ankle and toes. She has swelling in the hands. Stiffness is 15-20 minutes. She has overall improved with Orencia but hasn't been able to take it long enough and regularly enough. She continues to be leflunomide 10 mg daily. 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 Since then she decided to hold off on treatment for osteoporosis and decided to discontinue Orencia. She's been off Orencia since April 2017-December 2017 and was flaring up from her rheumatoid She continues to take Celebrex 200 mg daily Her oral surgeon the past recommended she hold off on Orencia therapy . She was in remission while on Orencia in the past but disease has been very active since discontinuation of Orencia. 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 She's received one dose of prolia in November 2016. She did 2 doses of reclast in the past and prior to that Actonel for 3 years. She stopped Actonel in May 2012 because she had trouble swallowing In September 2015 she fell and fractured her right wrist-distal radius. She had a bone density recently September 2016 with a T score of -2.6 in the right femoral neck. There was a decline in the spine BMD but improvement in the hip BMD. She's had glaucoma in the eye and is legally blind in the left eye and has loss of peripheral vision on the right. She has difficulty driving especially at night. She's on calcium and vitamin D supplements. She is no longer taking tramadol and has been taking Celebrex 200 mg daily. In the past she had a Kenalog injection for left trochanteric bursitis which helped significantly. She wants to continue to avoid methotrexate-she did not like the way it made her feel. In June 26 2014 she took a fall on ice and fractured her left elbow-distal humerus and proximal ulna requiring surgery. She had a bone density recently which showed osteoporosis in the femoral neck with a T score of -2.9 in the right femoral neck in August 2014. She had discontinued methotrexate in the past and is doing well on monotherapy. She went on a gluten-free diet as both her kids are diagnosed with celiac. Testing on her was negative. She continues to be off Plaquenil. PAST MEDICAL HISTORY Diagnosis Date - Acquired hypothyroidism autoimmune - Closed fracture of foot 5th metatarsal shaft left. Jack Anderson MD - Degenerative joint disease of shoulder region Left. MRI [facility]. 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 - On mcfp drug therapy - Orthostatic proteinuria intermittent. - Osteoarthritis of hip - Osteopenia - Osteoporosis - Rheumatoid arthritis involving multiple sites with positive rheumatoid factor (HCC) - Sjogren's syndrome (HCC) - Trochanteric bursitis bilateral - Type 1 diabetes mellitus (HCC) - Vitamin D deficiency - Vitiligo PAST SURGICAL HISTORY Procedure Laterality Date - EXCISION TONSIL LESIONS BILATERAL 1965 - IRIDOTOMY/IRIDECTOMY BY LASER Right 06/2008 Laser Peripheral Iridotomy (LPI) - IRIDOTOMY/IRIDECTOMY BY LASER Left 07/2009 Laser Peripheral Iridotomy (LPI) - LASIK 1996 both eyes - LIGATE FALLOPIAN TUBE 1996 Tubal ligation - PROCEDURE (SPECIFY) 06/2014 left elbow - PROCEDURE (SPECIFY) 1996 lump removed from right breast - REMV CATARACT EXTRACAP,INSERT LENS Left 06/03/16 PCIOL with Ab interno trabeculotomy OS Health Maintenance Procedures HBA1C due on 11/14/1964 URINE ALBUMIN:CREATININE RATIO due on 11/14/1969 DIABETIC FOOT EXAM due on 11/14/1969 ONE PNEUMOVAX PRIOR TO AGE 64 due on 1975 LDL CHOLESTEROL due on 11/14/1977 ANNUAL PCP TEAM CHRONIC DISEASE VISIT due on 11/14/1977 DTAP,TDAP,TD(1 - Tdap) due on 11/14/1978 PAP EVERY 5 YEARS due on 11/14/1989 HPV EVERY 5 YEARS due on 11/14/1989 MAMMOGRAM due on 1999 HEPATITIS C SCREENING due on 2003 COLORECTAL CANCER SCREENING,SEE MODIFIER due on 11/14/2009 INFLUENZA(1) due on 04/08/2018 Discussed health maintenance, including regular aerobic exercise, low fat diet, and periodic exams. Health Maintenance Immunizations Given Immunizations: Immunization History Administered Date(s) Administered Influenza Seasonal Inj Age 3+ 05/07/2009 Influenza Seasonal Inj Quadrivalent Age 3+ 05/25/2017 PPD ([facility]) 03/02/2006 Current Outpatient Prescriptions: levothyroxine (SYNTHROID) 100 mcg tablet Take 100 mcg by mouth once daily. abatacept (ORENCIA) 125 mg/mL syrg INJECT ONE SYRINGE (125 MG) SUBCUTANEOUSLY EVERY WEEK. REFRIGERATE. ALLOW TO WARM TO ROOM TEMPERATURE PRIOR TO ADMINISTRATION. celecoxib (CELEBREX) 200 mg capsule Take 1 capsule by mouth once daily. pilocarpine (PILOCAR, ISOPTO CARPINE) 1 % ophthalmic solution Use 1 Drop in the right eye twice daily. For use AFTER surgery LUMIGAN 0.01 % drop ophthalmic drops Use 1 Drop in both eyes daily at bedtime. leflunomide (ARAVA) 10 mg tablet TAKE 1 TABLET BY MOUTH ONCE DAILY. INDICATIONS: RHEUMATOID ARTHRITIS SIMBRINZA 1-0.2 % Ophth Susp USE 1 DROP IN EYES TWICE DAILY. cycloSPORINE 0.05 % drop Use in eyes. timolol maleate (TIMOPTIC) 0.5 % ophthalmic solution 1 DROP EVERY MORNING INTO RIGHT EYE AND 1 DROP TWICE A DAY INTO LEFT EYE omega-3 acid ethyl esters (LOVAZA) 1 gram capsule Take 2 capsules by mouth twice daily. calcium carbonate 600 mg-cholecalciferol 400 units 600 mg(1,500mg) -400 unit tab Take 2 tablets by mouth once daily. blood sugar diagnostic test strip 10 Each once daily. Use as instructed Insulin Milton, Disposable, 32 gauge x 5/32 ndle Inject 4 Units subcutaneously once daily. insulin aspart (NOVOLOG) 100 unit/mL Soln Subcutaneous 4 times a day - pt adjusts own sliding scale per blood glucose levels losartan 25 mg tablet Take 25 mg by mouth once daily. MILK THISTLE ORAL Take 300 mg by mouth. COMPOUNDED PRESCRIPTION Flax seed oil 1000mg Ascorbic Acid (VITAMIN C) 1,000 mg tablet Take 1,000 mg by mouth once daily. simvastatin 5 mg tablet Take 5 mg by mouth daily at bedtime. Cholecalciferol, Vitamin D3, (VITAMIN D-3) 2,000 unit cap Take by mouth. cyanocobalamin (VITAMIN B-12) 1,000 mcg Tab Take 1,000 mcg by mouth once daily. levothyroxine (SYNTHROID) 112 mcg tablet Take 112 mcg by mouth once daily. No current facility-administered medications for this visit. ALLERGIES Allergen Reactions - Gluten Other: See Comments Upset Stomach; Intolerance - Septra [Sulfamethox* Vomiting, Other: See Comments Septra DS: Nausea - Sulfa (Sulfonamide * Other: See Comments Patient Unsure. FAMILY HISTORY Problem Relation Age of Onset - Colon Cancer Father - Diabetes Father Type II - other (Pulmonary embolism) Mother Cause of - Age 41 - other (MS) Paternal Uncle Cause of - Stroke Maternal Grandfather Cause of Social History Marital status: Spouse name: Years of education: Number of children: Occupational History Occupation Employer [employer] Social History Main Topics Smoking status: Never Smoker Smokeless tobacco: Never Used Alcohol use: Yes 1.5 oz/week Glasses of Wine (5oz): 1 per week Comment: 1-2 times a year Drug use: No Other Topics Concern Special Diet Not Asked Comment:Good diet Exercise Not Asked Comment:Excercises 5 or more days/wk History Review: I have reviewed and modified as needed, the following during this visit: Allergies, Past Medical History, Past Surgical History, Past Family History, Past Social History. Review of Systems CONSTITUTIONAL: Negative for weight gain, weight loss, fatigue, weakness, fever, falls EYES: Negative for Eye Pain, Eye Redness, Reduced Vision, Diplopia, Blurred Vision, Dryness, Feels like something in Eye(s), Eye Itching NOSE, THROAT: Negative for frequent or significant headaches, No changes in hearing or vision, no nose bleeds or other nasal problems NECK: Negative for lumps, goiter, pain and significant neck swelling RESPIRATORY: Negative for cough, hemoptysis, wheezing or shortness of breath CARDIOVASCULAR: No chest pain, arrhythmia, palpitations, heart murmurs GI: No nausea, vomiting, or diarrhea : No history of dysuria, frequency or incontinence Kidney disease/stones: no MUSCULOSKELETAL: Negative for ,muscle weakness, back pain , positive for joint pain, positive for joint swelling, positive for morning stiffness SKIN: Negative for changes in the skin redness, easily bruising, pruritus, skin rash, malar rash, hives, sun sensitivity, tightness, nodules/bumps, hair loss, skin lesion, ulcerations, color changles of hands or feet in the cold. Negative for rash PSYCH: Negative for excessive worries, anxious, easily losing temper, feeling depressed, feeling agitated, diffuclty falling asleep, diffuclty staying asleep HEMATOLOGY/LYMPHOLOGY Negative for prolonged bleeding, bruising easily or swollen nodes ENDOCRINE: Negative for cold or heat intolerance, polyuria, polydipsia and goiter NEURO: Negative for headache, dizziness, syncope, muscle spasms, tingling, loss of consciousness, sensitivity or pain of hands and/or feet, memory loss, night sweats BP 122/76 Pulse 63 Temp 36.5 ?C (97.7 ?F) Ht 162.6 cm (5' 4) Wt 60.3 kg (133 lb) BMI 22.83 kg/m? Physical Exam GENERAL: Well appearing, alert, comfortable, in no acute distress, well-hydrated, well nourished. HEENT: Negative for external ears normal. Canals are clear. Both TMs visualized and are normal. Eye Exam normal. External nose normal, no nasal ulcer or throat ulcer. NECK: NECK Supple, no adenopathy; thyroid symmetric, normal size, no bruits CARDIAC: regular rate and rhythm, No murmur asculated. and Equal peripheral pulses RESPIRATORY: Lungs clear to auscultation. No wheezing, rhonchi, rales VASCULAR: RRR without murmur, gallop, or rubs. No ectopy. ABDOMEN: Soft, non tender. BS active. No masses or organomegaly. LYMPHATIC: Negative for adenopathy in the neck, axillae, groin, supraclavicular and auricular. NEURO: Motor and sensory exam normal MOTOR: Normal; including tone, gait, stressed gait, power and coordination. SKIN: Negative for alopecia, skin rash, malar rash, skin lesion, skin ulcer, pits, thickening, color changes, telangiectasias, nail changes, nail ridging, nail pitting, onycholysis MUSCULOSKELETAL: Mild fullness and tenderness right wrist Tenderness and fullness right first second third MCPs and second third PIPs Tenderness left wrist Tenderness left second third MCPs Mild tenderness left elbow Impingement right hip Tenderness right ankle Tenderness over MTPs bilaterally Tenderness right trochanteric bursa Serology: : RF: +, CCP: +, MITCHELL: 1:640, DNA: +, Repeat double-stranded DNA negative Lab Results: December 2017 CMP normal CBC MCV 86.8 ESR 2 CRP normal Radiology Results: The full radiology report is copied below. X-ray left foot 09/2017 There is no acute bony abnormality identified. ?There is an old healed fracture of ?the mid shaft of the fifth metatarsal. ?No dislocation, stress related change or significant arthrosis. ?Normal soft tissues. EMG nerve conduction test February 2017 Right common peroneal mononeuropathy October 2016 X-ray right knee Normal X-ray of the hips 1. ?Minimal joint space narrowing involving the left hip. ? 2. ?Otherwise negative pelvis, and negative right and left hips. Bone density scan in September 2016 T score -2.6 right femoral neck Assessment (M05.79) Rheumatoid arthritis involving multiple sites with positive rheumatoid factor (HCC) (primary encounter diagnosis) (M81.0) Osteoporosis, unspecified osteoporosis type, unspecified pathological fracture presence (M35.00) Sjogren's syndrome, with unspecified organ involvement (HCC) (M16.0) Primary osteoarthritis of both hips (R76.8) Positive cardiolipin antibodies (G89.4) Chronic pain syndrome 57-year-old with #1 sero positive rheumatoid arthritis with moderate synovitis today- on leflunomide 10 mg daily and Orencia subcutaneous on an intermittent basis. Continues to have synovitis as she hasn't been taking her Orencia regularly. They response Orencia in the past and was in remission but went off Orencia from April 2017 up until November 2017 with flare. Continues to be symptomatically #2 severe osteoporosis-recent bone density with a T score of -2.6 in the femoral neck, recent fracture right distal radius September 2016. history of fracture left distal humerus/proximal ulnar fracture in June 2014. On calcium and vitamin D supplementation. History of Actonel use in the past has been discontinued in 2011 because of GI intolerance-received first dose of Reclast in October 2014 and second dose October 2015. Has done one dose of prolia November 2016. Currently not on treatment for osteoporosis-was recommended Tymlos but wants to hold off since recently diagnosed with osteonecrosis of the jaw. Wants to continue to hold off #3 recent right distal radius fracture, prior to that had left distal femur/proximal ulnar fracture post surgery-continues to have pain from past fractures #4 left shoulder impingement-improved with exercise and injection. Also has acromioclavicular joint arthrosis on the left and on MRI #5 history of left trochanteric bursitis with mild degenerative arthritis in the hip-improved with Kenalog injection in the past-mild symptoms today. Recent imaging continues to show mild degenerative arthritis left hip-continues to be symptomatic #6 type 1 diabetes on insulin, hypertension, hypothyroidism, vitiligo, depression, glaucoma, intermittent proteinuria #7 family history of celiac disease-both get her diagnosis celiac. She has gone on a gluten-free diet with overall improvement in generalized pain #8 history of TNF induced SLE - recent double-stranded DNA negative. History of positive anti-Cardiolipin antibodies and leukopenia. On aspirin. Plaquenil discontinued without problems. Stable #9 mild lumbar spondylosis-symptoms improved-intermittent symptoms #10sicca symptoms, glaucoma with loss of vision left eye and some symptoms on the right-has seen bar turner #11 recent upper back pain and long standing chronic low back pain-continues to have symptoms mostly in the lower back. Upper back pain resolved. Imaging through PCP did not show any fractures. 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 Treated with antibiotics since April 2017-. Not on treatment for osteoporosis . Had recent episode of osteonecrosis again and given another course of antibiotics Plan Rheumatoid arthritis continues to be active She's been unable to take Orencia regularly Recommend Orencia subcutaneous weekly injection-she has been taking intermittently and every other week when on it. Still has moderate synovitis on exam Can continue leflunomide 10 mg daily normal No serious infections recently Blood work to monitor medication and disease activity She continues recent hematocrit from osteonecrosis of the [id number] with oral surgeon as needed She wants to continue to hold off on no treatment for osteoporosis Continue calcium and vitamin D supplements Continue symptomatically treatment of sicca symptoms. Close follow-up with bar turner for glaucoma. She scheduled for surgery on the left eye Continue bone density screening every 2 years. Celiac disease also a risk factor for osteoporosis although she has been on a gluten- free diet Continue tramadol for pain-she's been taking it daily at bedtime Continue Celebrex 200 mg daily Follow-up in 3 months Plan Office Visit on 04/17/18 -CBC + DIFF -COMP METABOLIC PANEL -C-REACTIVE PROTEIN (CRP) -SED RATE WESTERGREN Return in about 3 months (around 07/17/2018). Jasvir Boyd MD CNOV Observed: 04/17/2018 Status: COMPLETED Source: [facility] 11:30 AM CLINIC OTHER CAMPUS REPOSITORY Office Visit ([facility]) CHELSEA NAIK ([id number]) 1960 Date Time Provider Department 04/17/18 11:30 AM JASVIR BOYD During your visit today, we recorded the following information about you: Temperature Pulse Blood pressure Weight 97.7 degrees 63/minute 122/76 60.3 kg Height 1.626 m Jasvir Boyd MD 04/17/2018 12:23 PM Signed Subjective HPI: Chelsea Naik is a 57 year old female who presents with rheumatoid arthritis, osteoporosis , history of multiple fractures, 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 She's on Orencia subcutaneous but has been taking it every other week and has missed several doses recently because she had an open wound on her right foot which he believes was infected and had to stop medication for around 3 weeks, prior to that she had another episode of osteonecrosis of the jaw for which she was given antibiotics for a month. Her pain is 6/10 in the right hand, wrists, elbows, shoulders and knees. She also has pain in the right ankle and toes. She has swelling in the hands. Stiffness is 15-20 minutes. She has overall improved with Orencia but hasn't been able to take it long enough and regularly enough. She continues to be leflunomide 10 mg daily. 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 Since then she decided to hold off on treatment for osteoporosis and decided to discontinue Orencia. She's been off Orencia since April 2017-December 2017 and was flaring up from her rheumatoid She continues to take Celebrex 200 mg daily Her oral surgeon the past recommended she hold off on Orencia therapy . She was in remission while on Orencia in the past but disease has been very active since discontinuation of Orencia. 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 She's received one dose of prolia in November 2016. She did 2 doses of reclast in the past and prior to that Actonel for 3 years. She stopped Actonel in May 2012 because she had trouble swallowing In September 2015 she fell and fractured her right wrist-distal radius. She had a bone density recently September 2016 with a T score of -2.6 in the right femoral neck. There was a decline in the spine BMD but improvement in the hip BMD. She's had glaucoma in the eye and is legally blind in the left eye and has loss of peripheral vision on the right. She has difficulty driving especially at night. She's on calcium and vitamin D supplements. She is no longer taking tramadol and has been taking Celebrex 200 mg daily. In the past she had a Kenalog injection for left trochanteric bursitis which helped significantly. She wants to continue to avoid methotrexate- she did not like the way it made her feel. In June 26 2014 she took a fall on ice and fractured her left elbow-distal humerus and proximal ulna requiring surgery. She had a bone density recently which showed osteoporosis in the femoral neck with a T score of -2.9 in the right femoral neck in August 2014. She had discontinued methotrexate in the past and is doing well on monotherapy. She went on a gluten-free diet as both her kids are diagnosed with celiac. Testing on her was negative. She continues to be off Plaquenil. PAST MEDICAL HISTORY Diagnosis Date - Acquired hypothyroidism autoimmune - Closed fracture of foot 5th metatarsal shaft left. Jack Anderson MD - Degenerative joint disease of shoulder region Left. MRI [facility]. 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 - On predatory animal exterminator drug therapy - Orthostatic proteinuria intermittent. - Osteoarthritis of hip - Osteopenia - Osteoporosis - Rheumatoid arthritis involving multiple sites with positive rheumatoid factor (HCC) - Sjogren's syndrome (HCC) - Trochanteric bursitis bilateral - Type 1 diabetes mellitus (HCC) - Vitamin D deficiency - Vitiligo PAST SURGICAL HISTORY Procedure Laterality Date - EXCISION TONSIL LESIONS BILATERAL 1965 - IRIDOTOMY/IRIDECTOMY BY LASER Right 06/2008 Laser Peripheral Iridotomy (LPI) - IRIDOTOMY/IRIDECTOMY BY LASER Left 07/2009 Laser Peripheral Iridotomy (LPI) - LASIK 1996 both eyes - LIGATE FALLOPIAN TUBE 1996 Tubal ligation - PROCEDURE (SPECIFY) 06/2014 left elbow - PROCEDURE (SPECIFY) 1996 lump removed from right breast - REMV CATARACT EXTRACAP,INSERT LENS Left 06/03/16 PCIOL with Ab interno trabeculotomy OS Health Maintenance Procedures HBA1C due on 11/14/1964 URINE ALBUMIN:CREATININE RATIO due on 11/14/1969 DIABETIC FOOT EXAM due on 11/14/1969 ONE PNEUMOVAX PRIOR TO AGE 65 due on 1975 LDL CHOLESTEROL due on 11/14/1977 ANNUAL PCP TEAM CHRONIC DISEASE VISIT due on 11/14/1977 DTAP,TDAP,TD(1 - Tdap) due on 11/14/1978 PAP EVERY 5 YEARS due on 11/14/1989 HPV EVERY 5 YEARS due on 11/14/1989 MAMMOGRAM due on 1999 HEPATITIS C SCREENING due on 2003 COLORECTAL CANCER SCREENING,SEE MODIFIER due on 11/14/2009 INFLUENZA(1) due on 04/08/2018 Discussed health maintenance, including regular aerobic exercise, low fat diet, and periodic exams. Health Maintenance Immunizations Given Immunizations: Immunization History Administered Date(s) Administered Influenza Seasonal Inj Age 3+ 05/07/2009 Influenza Seasonal Inj Quadrivalent Age 3+ 05/25/2017 PPD ([facility]) 03/02/2006 Current Outpatient Prescriptions: levothyroxine (SYNTHROID) 100 mcg tablet Take 100 mcg by mouth once daily. abatacept (ORENCIA) 125 mg/mL syrg INJECT ONE SYRINGE (125 MG) SUBCUTANEOUSLY EVERY WEEK. REFRIGERATE. ALLOW TO WARM TO ROOM TEMPERATURE PRIOR TO ADMINISTRATION. celecoxib (CELEBREX) 200 mg capsule Take 1 capsule by mouth once daily. pilocarpine (PILOCAR, ISOPTO CARPINE) 1 % ophthalmic solution Use 1 Drop in the right eye twice daily. For use AFTER surgery LUMIGAN 0.01 % drop ophthalmic drops Use 1 Drop in both eyes daily at bedtime. leflunomide (ARAVA) 10 mg tablet TAKE 1 TABLET BY MOUTH ONCE DAILY. INDICATIONS: RHEUMATOID ARTHRITIS SIMBRINZA 1-0.2 % Ophth Susp USE 1 DROP IN EYES TWICE DAILY. cycloSPORINE 0.05 % drop Use in eyes. timolol maleate (TIMOPTIC) 0.5 % ophthalmic solution 1 DROP EVERY MORNING INTO RIGHT EYE AND 1 DROP TWICE A DAY INTO LEFT EYE omega-3 acid ethyl esters (LOVAZA) 1 gram capsule Take 2 capsules by mouth twice daily. calcium carbonate 600 mg-cholecalciferol 400 units 600 mg(1,500mg) -400 unit tab Take 2 tablets by mouth once daily. blood sugar diagnostic test strip 10 Each once daily. Use as instructed Insulin Milton, Disposable, 32 gauge x 5/32 ndle Inject 4 Units subcutaneously once daily. insulin aspart (NOVOLOG) 100 unit/mL Soln Subcutaneous 4 times a day - pt adjusts own sliding scale per blood glucose levels losartan 25 mg tablet Take 25 mg by mouth once daily. MILK THISTLE ORAL Take 300 mg by mouth. COMPOUNDED PRESCRIPTION Flax seed oil 1000mg Ascorbic Acid (VITAMIN C) 1,000 mg tablet Take 1,000 mg by mouth once daily. simvastatin 5 mg tablet Take 5 mg by mouth daily at bedtime. Cholecalciferol, Vitamin D3, (VITAMIN D-3) 2,000 unit cap Take by mouth. cyanocobalamin (VITAMIN B-12) 1,000 mcg Tab Take 1,000 mcg by mouth once daily. levothyroxine (SYNTHROID) 112 mcg tablet Take 112 mcg by mouth once daily. No current facility-administered medications for this visit. ALLERGIES Allergen Reactions - Gluten Other: See Comments Upset Stomach; Intolerance - Septra [Sulfamethox* Vomiting, Other: See Comments Septra DS: Nausea - Sulfa (Sulfonamide * Other: See Comments Patient Unsure. FAMILY HISTORY Problem Relation Age of Onset - Colon Cancer Father - Diabetes Father Type II - other (Pulmonary embolism) Mother Cause of - Age 41 - other (MS) Paternal Uncle Cause of - Stroke Maternal Grandfather Cause of Social History Marital status: Spouse name: Years of education: Number of children: Occupational History Occupation Employer [employer] Social History Main Topics Smoking status: Never Smoker Smokeless tobacco: Never Used Alcohol use: Yes 1.5 oz/week Glasses of Wine (5oz): 1 per week Comment: 1-2 times a year Drug use: No Other Topics Concern Special Diet Not Asked Comment:Good diet Exercise Not Asked Comment:Excercises 5 or more days/wk History Review: I have reviewed and modified as needed, the following during this visit: Allergies, Past Medical History, Past Surgical History, Past Family History, Past Social History. Review of Systems CONSTITUTIONAL: Negative for weight gain, weight loss, fatigue, weakness, fever, falls EYES: Negative for Eye Pain, Eye Redness, Reduced Vision, Diplopia, Blurred Vision, Dryness, Feels like something in Eye(s), Eye Itching NOSE, THROAT: Negative for frequent or significant headaches, No changes in hearing or vision, no nose bleeds or other nasal problems NECK: Negative for lumps, goiter, pain and significant neck swelling RESPIRATORY: Negative for cough, hemoptysis, wheezing or shortness of breath CARDIOVASCULAR: No chest pain, arrhythmia, palpitations, heart murmurs GI: No nausea, vomiting, or diarrhea : No history of dysuria, frequency or incontinence Kidney disease/stones: no MUSCULOSKELETAL: Negative for ,muscle weakness, back pain , positive for joint pain, positive for joint swelling, positive for morning stiffness SKIN: Negative for changes in the skin redness, easily bruising, pruritus, skin rash, malar rash, hives, sun sensitivity, tightness, nodules/bumps, hair loss, skin lesion, ulcerations, color changles of hands or feet in the cold. Negative for rash PSYCH: Negative for excessive worries, anxious, easily losing temper, feeling depressed, feeling agitated, diffuclty falling asleep, diffuclty staying asleep HEMATOLOGY/LYMPHOLOGY Negative for prolonged bleeding, bruising easily or swollen nodes ENDOCRINE: Negative for cold or heat intolerance, polyuria, polydipsia and goiter NEURO: Negative for headache, dizziness, syncope, muscle spasms, tingling, loss of consciousness, sensitivity or pain of hands and/or feet, memory loss, night sweats BP 122/76 Pulse 63 Temp 36.5 ?C (97.7 ?F) Ht 162.6 cm (5' 4) Wt 60.3 kg (133 lb) BMI 22.83 kg/m? Physical Exam GENERAL: Well appearing, alert, comfortable, in no acute distress, well-hydrated, well nourished. HEENT: Negative for external ears normal. Canals are clear. Both TMs visualized and are normal. Eye Exam normal. External nose normal, no nasal ulcer or throat ulcer. NECK: NECK Supple, no adenopathy; thyroid symmetric, normal size, no bruits CARDIAC: regular rate and rhythm, No murmur asculated. and Equal peripheral pulses RESPIRATORY: Lungs clear to auscultation. No wheezing, rhonchi, rales VASCULAR: RRR without murmur, gallop, or rubs. No ectopy. ABDOMEN: Soft, non tender. BS active. No masses or organomegaly. LYMPHATIC: Negative for adenopathy in the neck, axillae, groin, supraclavicular and auricular. NEURO: Motor and sensory exam normal MOTOR: Normal; including tone, gait, stressed gait, power and coordination. SKIN: Negative for alopecia, skin rash, malar rash, skin lesion, skin ulcer, pits, thickening, color changes, telangiectasias, nail changes, nail ridging, nail pitting, onycholysis MUSCULOSKELETAL: Mild fullness and tenderness right wrist Tenderness and fullness right first second third MCPs and second third PIPs Tenderness left wrist Tenderness left second third MCPs Mild tenderness left elbow Impingement right hip Tenderness right ankle Tenderness over MTPs bilaterally Tenderness right trochanteric bursa Serology: : RF: +, CCP: +, MITCHELL: 1:640, DNA: +, Repeat double-stranded DNA negative Lab Results: December 2017 CMP normal CBC MCV 86.8 ESR 2 CRP normal Radiology Results: The full radiology report is copied below. X-ray left foot 09/2017 There is no acute bony abnormality identified. ?There is an old healed fracture of ?the mid shaft of the fifth metatarsal. ?No dislocation, stress related change or significant arthrosis. ?Normal soft tissues. EMG nerve conduction test February 2017 Right common peroneal mononeuropathy October 2016 X-ray right knee Normal X-ray of the hips 1. ?Minimal joint space narrowing involving the left hip. ? 2. ?Otherwise negative pelvis, and negative right and left hips. Bone density scan in September 2016 T score -2.6 right femoral neck Assessment (M05.79) Rheumatoid arthritis involving multiple sites with positive rheumatoid factor (HCC) (primary encounter diagnosis) (M81.0) Osteoporosis, unspecified osteoporosis type, unspecified pathological fracture presence (M35.00) Sjogren's syndrome, with unspecified organ involvement (HCC) (M16.0) Primary osteoarthritis of both hips (R76.8) Positive cardiolipin antibodies (G89.4) Chronic pain syndrome 57-year-old with #1 sero positive rheumatoid arthritis with moderate synovitis today- on leflunomide 10 mg daily and Orencia subcutaneous on an intermittent basis. Continues to have synovitis as she hasn't been taking her Orencia regularly. They response Orencia in the past and was in remission but went off Orencia from April 2017 up until November 2017 with flare. Continues to be symptomatically #2 severe osteoporosis-recent bone density with a T score of -2.6 in the femoral neck, recent fracture right distal radius September 2016. history of fracture left distal humerus/proximal ulnar fracture in June 2014. On calcium and vitamin D supplementation. History of Actonel use in the past has been discontinued in 2011 because of GI intolerance-received first dose of Reclast in October 2014 and second dose October 2015. Has done one dose of prolia November 2016. Currently not on treatment for osteoporosis-was recommended Tymlos but wants to hold off since recently diagnosed with osteonecrosis of the jaw. Wants to continue to hold off #3 recent right distal radius fracture, prior to that had left distal femur/proximal ulnar fracture post surgery-continues to have pain from past fractures #4 left shoulder impingement-improved with exercise and injection. Also has acromioclavicular joint arthrosis on the left and on MRI #5 history of left trochanteric bursitis with mild degenerative arthritis in the hip-improved with Kenalog injection in the past-mild symptoms today. Recent imaging continues to show mild degenerative arthritis left hip-continues to be symptomatic #6 type 1 diabetes on insulin, hypertension, hypothyroidism, vitiligo, depression, glaucoma, intermittent proteinuria #7 family history of celiac disease-both get her diagnosis celiac. She has gone on a gluten-free diet with overall improvement in generalized pain #8 history of TNF induced SLE - recent double-stranded DNA negative. History of positive anti-Cardiolipin antibodies and leukopenia. On aspirin. Plaquenil discontinued without problems. Stable #9 mild lumbar spondylosis-symptoms improved-intermittent symptoms #10sicca symptoms, glaucoma with loss of vision left eye and some symptoms on the right-has seen bar turner #11 recent upper back pain and long standing chronic low back pain-continues to have symptoms mostly in the lower back. Upper back pain resolved. Imaging through PCP did not show any fractures. 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 Treated with antibiotics since April 2017-. Not on treatment for osteoporosis . Had recent episode of osteonecrosis again and given another course of antibiotics Plan Rheumatoid arthritis continues to be active She's been unable to take Orencia regularly Recommend Orencia subcutaneous weekly injection-she has been taking intermittently and every other week when on it. Still has moderate synovitis on exam Can continue leflunomide 10 mg daily normal No serious infections recently Blood work to monitor medication and disease activity She continues recent hematocrit from osteonecrosis of the [id number] with oral surgeon as needed She wants to continue to hold off on no treatment for osteoporosis Continue calcium and vitamin D supplements Continue symptomatically treatment of sicca symptoms. Close follow-up with bar turner for glaucoma. She scheduled for surgery on the left eye Continue bone density screening every 2 years. Celiac disease also a risk factor for osteoporosis although she has been on a gluten- free diet Continue tramadol for pain-she's been taking it daily at bedtime Continue Celebrex 200 mg daily Follow-up in 3 months Plan Office Visit on 04/17/18 -CBC + DIFF -COMP METABOLIC PANEL -C-REACTIVE PROTEIN (CRP) -SED RATE WESTERGREN Return in about 3 months (around 07/17/2018). Jasvir Boyd MD Referring Provider: JASVIR BOYD [[id number]] Allergies As of Date: 04/17/2018 Noted Allergy Reaction GLUTEN 10/06/2015 14 - Other: See Comments Comments: Upset Stomach; Intolerance SEPTRA (SULFAMETHOXAZOLE-TRIMETHO*10/06/2015 11 - Vomiting 14 - Other: See Comments Comments: Septra DS: Nausea SULFA (SULFONAMIDE ANTIBIOTICS) 08/16/2005 14 - Other: See Comments Comments: Patient Unsure. Date Reviewed: 04/17/2018 Reviewed by: Jasvir Boyd - Fully Assessed Reason for Visit: Follow Up [171] Primary Visit Diagnosis:Rheumatoid arthritis involving multiple sites with positive rheumatoid factor (HCC) [M05.79] Other Visit Diagnoses:Osteoporosis, unspecified osteoporosis type, unspecified pathological fracture presence [M81.0] Sjogren's syndrome, with unspecified organ involvement (HCC) [M35.00] Primary osteoarthritis of both hips [M16.0] Positive cardiolipin antibodies [R76.8] Chronic pain syndrome [G89.4] Order(s):abatacept (ORENCIA) 125 mg/mL syrgINJECT ONE SYRINGE (125 MG) SUBCUTANEOUSLY EVERY WEEK. REFRIGERATE. ALLOW TO WARM TO ROOM TEMPERATURE PRIOR TO ADMINISTRATION.Disp: 12 SyringeRfl: 0 celecoxib (CELEBREX) 200 mg capsuleTake 1 capsule by mouth once daily.Disp: 90 capsuleRfl: 0 CBC + DIFF [SQCBCDIF] Order #: [id number] FUTURE COMP METABOLIC PANEL [SQCMP] Order #: [id number] FUTURE C-REACTIVE PROTEIN (CRP) [SQCRP] Order #: [id number] FUTURE SED RATE WESTERGREN [SQWSR] Order #: [id number] FUTURE Prescriptions as of 04/17/2018 Sig: LEVOTHYROXINE 100 MCG TABLET Take 100 mcg by mouth once da* ABATACEPT 125 MG/ML SUBCUTANE* INJECT ONE SYRINGE (125 MG) S* CELECOXIB 200 MG CAPSULE Take 1 capsule by mouth once * PILOCARPINE 1 % EYE DROPS Use 1 Drop in the right eye t* LUMIGAN 0.01 % EYE DROPS Use 1 Drop in both eyes daily* LEFLUNOMIDE 10 MG TABLET TAKE 1 TABLET BY MOUTH ONCE D* SIMBRINZA 1 %-0.2 % EYE DROPS* USE 1 DROP IN EYES TWICE DAVIDA* CYCLOSPORINE 0.05 % EYE DROPS Use in eyes. TIMOLOL MALEATE 0.5 % EYE FLOWER* 1 DROP EVERY MORNING INTO RIG* OMEGA-3 ACID ETHYL ESTERS 1 G* Take 2 capsules by mouth twic* CALCIUM CARBONATE 600 MG (1,5* Take 2 tablets by mouth once * BLOOD SUGAR DIAGNOSTIC STRIPS 10 Each once daily. Use as in* PEN NEEDLE, DIABETIC 32 GAUGE* Inject 4 Units subcutaneously* INSULIN ASPART U-100 100 UNI* Subcutaneous 4 times a day - * LOSARTAN 25 MG TABLET Take 25 mg by mouth once davida* MILK THISTLE ORAL Take 300 mg by mouth. COMPOUNDED PRESCRIPTION Flax seed oil 1000mg ASCORBIC ACID (VITAMIN C) 1,0* Take 1,000 mg by mouth once d* SIMVASTATIN 5 MG TABLET Take 5 mg by mouth daily at b* CHOLECALCIFEROL (VITAMIN D3) * Take by mouth. CYANOCOBALAMIN (VIT B-12) 1,0* Take 1,000 mcg by mouth once * LEVOTHYROXINE 112 MCG TABLET Take 112 mcg by mouth once da* Problem List As Of Date 04/17/2018 Noted Resolved Falls [W19.XXXA] INVALID FOR* DM (diabetes mellitus) [E11.9] INVALID FOR* SLE exacerbation [M32.9] INVALID FOR* Positive cardiolipin antibodies [R76.8] INVALID FOR* Sjogren's syndrome [M35.00] INVALID FOR* Sleep difficulties [G47.9] INVALID FOR* Residual stage of angle-closure glaucoma, bilat*INVALID FOR*01/17/2017 Rheumatoid arthritis (HCC) [M06.9] Osteoporosis [M81.0] Osteoarthritis of hip [M16.9] Degenerative joint disease of shoulder region [* More... Follow-up examination after eye surgery [Z09] INVALID FOR*06/09/2016 Dry eye syndrome [H04.129] INVALID FOR* Pseudophakia, left eye [Z96.1] INVALID FOR* Residual stage of angle-closure glaucoma of bot*INVALID FOR* Closed Colles' fracture of right radius [S52.53*INVALID FOR* Rheumatoid arthritis involving multiple sites w* Chronic pain [G89.29] INVALID FOR* Phacomorphic glaucoma of right eye, mild stage *INVALID FOR* More... Nuclear sclerosis, right [H25.11] INVALID FOR* More... Prescriptions ordered this encounter Disp Refills Start End ABATACEPT 125 MG/ML SUBCUTANEOUS SYR* 12 S* 0 04/17/2018 Sig: INJECT ONE SYRINGE (125 MG) SUBCUTANEOUSLY EVERY WEEK. REFRIGERATE. ALLOW TO WARM TO ROOM TEMPERATURE PRIOR TO ADMINISTRATION. CELECOXIB 200 MG CAPSULE 90 c* 0 04/17/2018 07/16/2018 Route: ORAL Sig: Take 1 capsule by mouth once daily. Medications Discontinued During This Encounter ORENCIA 125 mg/mL syrg 12 S* 0 11/10/2017 04/17/2018 Sig: INJECT ONE SYRINGE (125 MG) SUBCUTANEOUSLY EVERY WEEK. REFRIGERATE. ALLOW TO WARM TO ROOM TEMPERATURE PRIOR TO ADMINISTRATION. Disc: Reason for discontinue is not on file. celecoxib (CELEBREX) 200 mg capsule 90 c* 0 08/09/2017 04/17/2018 Sig: TAKE ONE CAPSULE BY MOUTH EVERY DAY Disc: Reason for discontinue is not on file. prednisoLONE acetate (PRED FORTE, EC* 10 mL 1 03/29/2018 04/17/2018 Route: RIGHT EYE Sig: Use 1 Drop in the right eye four times daily. For use AFTER surgery. Patient not taking: Reported on 04/17/2018 Disc: Reason for discontinue is not on file. Disposition: Return in about 3 months (around 07/17/2018). Follow-up and Disposition History Recorded Questionnaire: RIGO ADAM YEARLY ADL ASSESSMENT Toileting -> Independent Bathing -> Independent Upper Body Dressing -> Independent Lower Body Dressing -> Independent Grooming/Hygiene -> Independent Self Feeding -> Independent Home Management (laundry/cleaning/chores/simple meal prep) -> Independent Encounter Status:Closed by JASVIR BOYD MD on 04/17/18 HOSP Observed: 03/30/2018 Status: COMPLETED Source: [place] 12:00 AM [facility] [place] REPOSITORY Patient:Chelsea Naik MRN: <[id number]> Height:5' 3.5(1.613 m) Weight:130 lb (58.968 kg) Outpatient Medications as of 05/11/18: insulin degludec (TRESIBA FLEXTOUCH U-100) 100 unit/mL (3 mL) injection alpha tocopheryl acetate (VITAMIN E) 400 unit capsule niacin ER (NIASPAN) 500 mg tablet levothyroxine (SYNTHROID) 100 mcg tablet abatacept (ORENCIA) 125 mg/mL syrg celecoxib (CELEBREX) 200 mg capsule pilocarpine (PILOCAR, ISOPTO CARPINE) 1 % ophthalmic solution LUMIGAN 0.01 % drop ophthalmic drops leflunomide (ARAVA) 10 mg tablet SIMBRINZA 1-0.2 % Ophth Susp cycloSPORINE 0.05 % drop timolol maleate (TIMOPTIC) 0.5 % ophthalmic solution omega-3 acid ethyl esters (LOVAZA) 1 gram capsule calcium carbonate 600 mg-cholecalciferol 400 units 600 mg(1,500mg) -400 unit tab blood sugar diagnostic test strip levothyroxine (SYNTHROID) 112 mcg tablet Insulin Milton, Disposable, 32 gauge x /32 ndle insulin aspart (NOVOLOG) 100 unit/mL Soln losartan 25 mg tablet MILK THISTLE ORAL COMPOUNDED PRESCRIPTION Ascorbic Acid (VITAMIN C) 1,000 mg tablet simvastatin 5 mg tablet Cholecalciferol, Vitamin D3, (VITAMIN D-3) 2,000 unit cap cyanocobalamin (VITAMIN B-12) 1,000 mcg Tab Admission/Clinic Administered Medications as of 05/11/18: lactated ringers infusion lidocaine 2 % (XYLOCAINE) Problem List: Falls [W19.XXXA] DM (diabetes mellitus) ([facility]) [E11.9] SLE exacerbation ([facility]) [M32.9] Positive cardiolipin antibodies [R76.8] Sjogren's syndrome ([facility]) [M35.00] Sleep difficulties [G47.9] Rheumatoid arthritis ([facility]) [M06.9] Osteoporosis [M81.0] Osteoarthritis of hip [M16.9] Degenerative joint disease of shoulder region [M19.019] Dry eye syndrome [H04.129] Pseudophakia, left eye [Z96.1] Residual stage of angle-closure glaucoma of both eyes [H40.243] Closed Colles' fracture of right radius [S52.531A] Rheumatoid arthritis involving multiple sites with positive rheumatoid factor ([facility]) [M05.79] Chronic pain [G89.29] Phacomorphic glaucoma of right eye, mild stage [H40.51X1, H26.9] Nuclear sclerosis, right [H25.11] Allergies: Gluten Septra [Sulfamethoxazole-Trimethoprim] Sulfa (Sulfonamide Antibiotics) Date Verified: 05/11/18 Lab Values Lab Value Units Date High Low POTA* 4.6 mEq/L 04/17/2018 5.1 3.5 TANA* 41.6 % 04/17/2018 44.9 34.1 Progress Notes ([facility]): Evi Jameson Sec 05/08/2018 3:06 PM Signed Patient is very upset about her surgery being moved to next week. She and her have taken time off work. She asked if she has her measurements at [facility] tomorrow if she can still have surgery . She would like you to call her. Jonatan Marquez MD 05/08/2018 3:47 PM Signed I spoke to Leidy who kindly agreed to see her 10am tomorrow for measurements and keep surgery this Progress Notes ([facility]): Jasvir Boyd MD 04/17/2018 12:23 PM Signed Subjective HPI: Chelsea Naik is a 57 year old female who presents with rheumatoid arthritis, osteoporosis , history of multiple fractures, 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 She's on Orencia subcutaneous but has been taking it every other week and has missed several doses recently because she had an open wound on her right foot which he believes was infected and had to stop medication for around 3 weeks, prior to that she had another episode of osteonecrosis of the jaw for which she was given antibiotics for a month. Her pain is 6/10 in the right hand, wrists, elbows, shoulders and knees. She also has pain in the right ankle and toes. She has swelling in the hands. Stiffness is 15-20 minutes. She has overall improved with Orencia but hasn't been able to take it long enough and regularly enough. She continues to be leflunomide 10 mg daily. 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 Since then she decided to hold off on treatment for osteoporosis and decided to discontinue Orencia. She's been off Orencia since April 2017-December 2017 and was flaring up from her rheumatoid She continues to take Celebrex 200 mg daily Her oral surgeon the past recommended she hold off on Orencia therapy . She was in remission while on Orencia in the past but disease has been very active since discontinuation of Orencia. 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 She's received one dose of prolia in November 2016. She did 2 doses of reclast in the past and prior to that Actonel for 3 years. She stopped Actonel in May 2012 because she had trouble swallowing In September 2015 she fell and fractured her right wrist-distal radius. She had a bone density recently September 2016 with a T score of -2.6 in the right femoral neck. There was a decline in the spine BMD but improvement in the hip BMD. She's had glaucoma in the eye and is legally blind in the left eye and has loss of peripheral vision on the right. She has difficulty driving especially at night. She's on calcium and vitamin D supplements. She is no longer taking tramadol and has been taking Celebrex 200 mg daily. In the past she had a Kenalog injection for left trochanteric bursitis which helped significantly. She wants to continue to avoid methotrexate- she did not like the way it made her feel. In June 26 2014 she took a fall on ice and fractured her left elbow-distal humerus and proximal ulna requiring surgery. She had a bone density recently which showed osteoporosis in the femoral neck with a T score of -2.9 in the right femoral neck in August 2014. She had discontinued methotrexate in the past and is doing well on monotherapy. She went on a gluten-free diet as both her kids are diagnosed with celiac. Testing on her was negative. She continues to be off Plaquenil. PAST MEDICAL HISTORY Diagnosis Date - Acquired hypothyroidism autoimmune - Closed fracture of foot 5th metatarsal shaft left. Jack Anderson MD - Degenerative joint disease of shoulder region Left. MRI [facility]. 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 - On predatory animal exterminator drug therapy - Orthostatic proteinuria intermittent. - Osteoarthritis of hip - Osteopenia - Osteoporosis - Rheumatoid arthritis involving multiple sites with positive rheumatoid factor (HCC) - Sjogren's syndrome (HCC) - Trochanteric bursitis bilateral - Type 1 diabetes mellitus (HCC) - Vitamin D deficiency - Vitiligo PAST SURGICAL HISTORY Procedure Laterality Date - EXCISION TONSIL LESIONS BILATERAL 1965 - IRIDOTOMY/IRIDECTOMY BY LASER Right 06/2008 Laser Peripheral Iridotomy (LPI) - IRIDOTOMY/IRIDECTOMY BY LASER Left 07/2009 Laser Peripheral Iridotomy (LPI) - LASIK 1996 both eyes - LIGATE FALLOPIAN TUBE 1996 Tubal ligation - PROCEDURE (SPECIFY) 06/2014 left elbow - PROCEDURE (SPECIFY) 1996 lump removed from right breast - REMV CATARACT EXTRACAP,INSERT LENS Left 06/03/16 PCIOL with Ab interno trabeculotomy OS Health Maintenance Procedures HBA1C due on 11/14/1964 URINE ALBUMIN:CREATININE RATIO due on 11/14/1969 DIABETIC FOOT EXAM due on 11/14/1969 ONE PNEUMOVAX PRIOR TO AGE 65 due on 1975 LDL CHOLESTEROL due on 11/14/1977 ANNUAL PCP TEAM CHRONIC DISEASE VISIT due on 11/14/1977 DTAP,TDAP,TD(1 - Tdap) due on 11/14/1978 PAP EVERY 5 YEARS due on 11/14/1989 HPV EVERY 5 YEARS due on 11/14/1989 MAMMOGRAM due on 1999 HEPATITIS C SCREENING due on 2003 COLORECTAL CANCER SCREENING,SEE MODIFIER due on 11/14/2009 INFLUENZA(1) due on 04/08/2018 Discussed health maintenance, including regular aerobic exercise, low fat diet, and periodic exams. Health Maintenance Immunizations Given Immunizations: Immunization History Administered Date(s) Administered Influenza Seasonal Inj Age 3+ 05/07/2009 Influenza Seasonal Inj Quadrivalent Age 3+ 05/25/2017 PPD ([place]) 03/02/2006 Current Outpatient Prescriptions: levothyroxine (SYNTHROID) 100 mcg tablet Take 100 mcg by mouth once daily. abatacept (ORENCIA) 125 mg/mL syrg INJECT ONE SYRINGE (125 MG) SUBCUTANEOUSLY EVERY WEEK. REFRIGERATE. ALLOW TO WARM TO ROOM TEMPERATURE PRIOR TO ADMINISTRATION. celecoxib (CELEBREX) 200 mg capsule Take 1 capsule by mouth once daily. pilocarpine (PILOCAR, ISOPTO CARPINE) 1 % ophthalmic solution Use 1 Drop in the right eye twice daily. For use AFTER surgery LUMIGAN 0.01 % drop ophthalmic drops Use 1 Drop in both eyes daily at bedtime. leflunomide (ARAVA) 10 mg tablet TAKE 1 TABLET BY MOUTH ONCE DAILY. INDICATIONS: RHEUMATOID ARTHRITIS SIMBRINZA 1-0.2 % Ophth Susp USE 1 DROP IN EYES TWICE DAILY. cycloSPORINE 0.05 % drop Use in eyes. timolol maleate (TIMOPTIC) 0.5 % ophthalmic solution 1 DROP EVERY MORNING INTO RIGHT EYE AND 1 DROP TWICE A DAY INTO LEFT EYE omega-3 acid ethyl esters (LOVAZA) 1 gram capsule Take 2 capsules by mouth twice daily. calcium carbonate 600 mg-cholecalciferol 400 units 600 mg(1,500mg) -400 unit tab Take 2 tablets by mouth once daily. blood sugar diagnostic test strip 10 Each once daily. Use as instructed Insulin Milton, Disposable, 32 gauge x 5/32 ndle Inject 4 Units subcutaneously once daily. insulin aspart (NOVOLOG) 100 unit/mL Soln Subcutaneous 4 times a day - pt adjusts own sliding scale per blood glucose levels losartan 25 mg tablet Take 25 mg by mouth once daily. MILK THISTLE ORAL Take 300 mg by mouth. COMPOUNDED PRESCRIPTION Flax seed oil 1000mg Ascorbic Acid (VITAMIN C) 1,000 mg tablet Take 1,000 mg by mouth once daily. simvastatin 5 mg tablet Take 5 mg by mouth daily at bedtime. Cholecalciferol, Vitamin D3, (VITAMIN D-3) 2,000 unit cap Take by mouth. cyanocobalamin (VITAMIN B-12) 1,000 mcg Tab Take 1,000 mcg by mouth once daily. levothyroxine (SYNTHROID) 112 mcg tablet Take 112 mcg by mouth once daily. No current facility-administered medications for this visit. ALLERGIES Allergen Reactions - Gluten Other: See Comments Upset Stomach; Intolerance - Septra [Sulfamethox* Vomiting, Other: See Comments Septra DS: Nausea - Sulfa (Sulfonamide * Other: See Comments Patient Unsure. FAMILY HISTORY Problem Relation Age of Onset - Colon Cancer Father - Diabetes Father Type II - other (Pulmonary embolism) Mother Cause of - Age 41 - other (MS) Paternal Uncle Cause of - Stroke Maternal Grandfather Cause of Social History Marital status: Spouse name: Years of education: Number of children: Occupational History Occupation Employer [employer] Social History Main Topics Smoking status: Never Smoker Smokeless tobacco: Never Used Alcohol use: Yes 1.5 oz/week Glasses of Wine (5oz): 1 per week Comment: 1-2 times a year Drug use: No Other Topics Concern Special Diet Not Asked Comment:Good diet Exercise Not Asked Comment:Excercises 5 or more days/wk History Review: I have reviewed and modified as needed, the following during this visit: Allergies, Past Medical History, Past Surgical History, Past Family History, Past Social History. Review of Systems CONSTITUTIONAL: Negative for weight gain, weight loss, fatigue, weakness, fever, falls EYES: Negative for Eye Pain, Eye Redness, Reduced Vision, Diplopia, Blurred Vision, Dryness, Feels like something in Eye(s), Eye Itching NOSE, THROAT: Negative for frequent or significant headaches, No changes in hearing or vision, no nose bleeds or other nasal problems NECK: Negative for lumps, goiter, pain and significant neck swelling RESPIRATORY: Negative for cough, hemoptysis, wheezing or shortness of breath CARDIOVASCULAR: No chest pain, arrhythmia, palpitations, heart murmurs GI: No nausea, vomiting, or diarrhea : No history of dysuria, frequency or incontinence Kidney disease/stones: no MUSCULOSKELETAL: Negative for ,muscle weakness, back pain , positive for joint pain, positive for joint swelling, positive for morning stiffness SKIN: Negative for changes in the skin redness, easily bruising, pruritus, skin rash, malar rash, hives, sun sensitivity, tightness, nodules/bumps, hair loss, skin lesion, ulcerations, color changles of hands or feet in the cold. Negative for rash PSYCH: Negative for excessive worries, anxious, easily losing temper, feeling depressed, feeling agitated, diffuclty falling asleep, diffuclty staying asleep HEMATOLOGY/LYMPHOLOGY Negative for prolonged bleeding, bruising easily or swollen nodes ENDOCRINE: Negative for cold or heat intolerance, polyuria, polydipsia and goiter NEURO: Negative for headache, dizziness, syncope, muscle spasms, tingling, loss of consciousness, sensitivity or pain of hands and/or feet, memory loss, night sweats BP 122/76 Pulse 63 Temp 36.5 ?C (97.7 ?F) Ht 162.6 cm (5' 4) Wt 60.3 kg (133 lb) BMI 22.83 kg/m? Physical Exam GENERAL: Well appearing, alert, comfortable, in no acute distress, well-hydrated, well nourished. HEENT: Negative for external ears normal. Canals are clear. Both TMs visualized and are normal. Eye Exam normal. External nose normal, no nasal ulcer or throat ulcer. NECK: NECK Supple, no adenopathy; thyroid symmetric, normal size, no bruits CARDIAC: regular rate and rhythm, No murmur asculated. and Equal peripheral pulses RESPIRATORY: Lungs clear to auscultation. No wheezing, rhonchi, rales VASCULAR: RRR without murmur, gallop, or rubs. No ectopy. ABDOMEN: Soft, non tender. BS active. No masses or organomegaly. LYMPHATIC: Negative for adenopathy in the neck, axillae, groin, supraclavicular and auricular. NEURO: Motor and sensory exam normal MOTOR: Normal; including tone, gait, stressed gait, power and coordination. SKIN: Negative for alopecia, skin rash, malar rash, skin lesion, skin ulcer, pits, thickening, color changes, telangiectasias, nail changes, nail ridging, nail pitting, onycholysis MUSCULOSKELETAL: Mild fullness and tenderness right wrist Tenderness and fullness right first second third MCPs and second third PIPs Tenderness left wrist Tenderness left second third MCPs Mild tenderness left elbow Impingement right hip Tenderness right ankle Tenderness over MTPs bilaterally Tenderness right trochanteric bursa Serology: : RF: +, CCP: +, MITCHELL: 1:640, DNA: +, Repeat double-stranded DNA negative Lab Results: December 2017 CMP normal CBC MCV 86.8 ESR 2 CRP normal Radiology Results: The full radiology report is copied below. X-ray left foot 09/2017 There is no acute bony abnormality identified. ?There is an old healed fracture of ?the mid shaft of the fifth metatarsal. ?No dislocation, stress related change or significant arthrosis. ?Normal soft tissues. EMG nerve conduction test February 2017 Right common peroneal mononeuropathy October 2016 X-ray right knee Normal X-ray of the hips 1. ?Minimal joint space narrowing involving the left hip. ? 2. ?Otherwise negative pelvis, and negative right and left hips. Bone density scan in September 2016 T score -2.6 right femoral neck Assessment (M05.79) Rheumatoid arthritis involving multiple sites with positive rheumatoid factor (HCC) (primary encounter diagnosis) (M81.0) Osteoporosis, unspecified osteoporosis type, unspecified pathological fracture presence (M35.00) Sjogren's syndrome, with unspecified organ involvement (HCC) (M16.0) Primary osteoarthritis of both hips (R76.8) Positive cardiolipin antibodies (G89.4) Chronic pain syndrome 57-year-old with #1 sero positive rheumatoid arthritis with moderate synovitis today- on leflunomide 10 mg daily and Orencia subcutaneous on an intermittent basis. Continues to have synovitis as she hasn't been taking her Orencia regularly. They response Orencia in the past and was in remission but went off Orencia from April 2017 up until November 2017 with flare. Continues to be symptomatically #2 severe osteoporosis-recent bone density with a T score of -2.6 in the femoral neck, recent fracture right distal radius September 2016. history of fracture left distal humerus/proximal ulnar fracture in June 2014. On calcium and vitamin D supplementation. History of Actonel use in the past has been discontinued in 2011 because of GI intolerance-received first dose of Reclast in October 2014 and second dose October 2015. Has done one dose of prolia November 2016. Currently not on treatment for osteoporosis-was recommended Tymlos but wants to hold off since recently diagnosed with osteonecrosis of the jaw. Wants to continue to hold off #3 recent right distal radius fracture, prior to that had left distal femur/proximal ulnar fracture post surgery-continues to have pain from past fractures #4 left shoulder impingement-improved with exercise and injection. Also has acromioclavicular joint arthrosis on the left and on MRI #5 history of left trochanteric bursitis with mild degenerative arthritis in the hip-improved with Kenalog injection in the past-mild symptoms today. Recent imaging continues to show mild degenerative arthritis left hip-continues to be symptomatic #6 type 1 diabetes on insulin, hypertension, hypothyroidism, vitiligo, depression, glaucoma, intermittent proteinuria #7 family history of celiac disease-both get her diagnosis celiac. She has gone on a gluten-free diet with overall improvement in generalized pain #8 history of TNF induced SLE - recent double-stranded DNA negative. History of positive anti-Cardiolipin antibodies and leukopenia. On aspirin. Plaquenil discontinued without problems. Stable #9 mild lumbar spondylosis-symptoms improved-intermittent symptoms #10sicca symptoms, glaucoma with loss of vision left eye and some symptoms on the right-has seen bar turner #11 recent upper back pain and long standing chronic low back pain-continues to have symptoms mostly in the lower back. Upper back pain resolved. Imaging through PCP did not show any fractures. 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 Treated with antibiotics since April 2017-. Not on treatment for osteoporosis . Had recent episode of osteonecrosis again and given another course of antibiotics Plan Rheumatoid arthritis continues to be active She's been unable to take Orencia regularly Recommend Orencia subcutaneous weekly injection-she has been taking intermittently and every other week when on it. Still has moderate synovitis on exam Can continue leflunomide 10 mg daily normal No serious infections recently Blood work to monitor medication and disease activity She continues recent hematocrit from osteonecrosis of the [id number] with oral surgeon as needed She wants to continue to hold off on no treatment for osteoporosis Continue calcium and vitamin D supplements Continue symptomatically treatment of sicca symptoms. Close follow-up with bar turner for glaucoma. She scheduled for surgery on the left eye Continue bone density screening every 2 years. Celiac disease also a risk factor for osteoporosis although she has been on a gluten- free diet Continue tramadol for pain-she's been taking it daily at bedtime Continue Celebrex 200 mg daily Follow-up in 3 months Plan Office Visit on 04/17/18 -CBC + DIFF -COMP METABOLIC PANEL -C-REACTIVE PROTEIN (CRP) -SED RATE WESTERGREN Return in about 3 months (around 07/17/2018). Jasvir Boyd MD PROGRESS Observed: 03/29/2018 Status: COMPLETED Source: [place] 9:39 AM [facility] REPOSITORY HNO ID: [id number] Author: Jonatan Marquez Service: (none) Author Type: Physician Type: Progress Notes Filed: 03/29/2018 9:59 AM Note Text: Tmax: 20,30; Pachy: 464, 479 Lasers and Surgeries: OD: Lasik (for myopia per pt) 2007 PI OS: 06/04/2016 phaco-GATT for narrow angles, IOP fluctuating 12-19 Lasik (for myopia per pt) 2008 PI Ocular Medication Intol and Non-efficacy: Travatan-increased dryness Now on Timolol bid OD, Lumigan qhs OU, Simbrinza BID OU (added to OD 05/2016), restasis bid OU Residual stage ACG, severe OS; mild OD -HVF 01/2018 OD 24% false (+), scattered point defects, nonglaucomatous OS dense inf arc encroaching fixation and sup NS - outside octopus VF with similar defect except it also had a dense sup NS Prior HVF here too unreliable to interpret -OCT 03/2018 OD sup thinning stable or sl worse 02/2017, widely split sup hump, 01/2017 OS severe diffuse depression -OD: IOP too high, possible a little OCT progression. 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 Still not ideal, so add timolol bid OS She is requiring cataract surgery for management of her glaucoma. She has persistent phacomorphic narrow angle OD, and cataract extraction is integral to the management of her IOP. DM type I since age 8. -no retinopathy Dry Eye, Sjogren's syndrome (not addressed today) -tears and gel working well -started restasis 06/2016 (Dr. Dimas) - perhaps some benefit -follow Still dealing with jaw osteonecrosis from osteoporosis meds I, Jonatan Marquez MD, have edited as necessary and confirmed the relevant ophthalmic history, ROS, and neuro exam findings as obtained by others. I have seen and examined Chelsea Naik. I also have reviewed, edited as necessary, and agree with the assessment and plan and all of its relevant components as stated above. I have discussed the case and the management of this patient's care with the Resident/Fellow, if applicable. OBSOLETE Observed: 03/01/2018 Status: COMPLETED Source: [place] 12:00 AM [facility] REPOSITORY Refill (CHRISTOPHER) CHELSEA NAIK ([id number]) 1960 F Date Time Provider Department 03/01/18 JASVIR BOYD During your visit today, we recorded the following information about you: Lucian Cartagena CMA 03/01/2018 11:54 AM Signed Patient called requesting the following refill. Pending Prescriptions Disp Refills TRAMADOL 50 MG TABLET 60 tablet 0 Sig: Take 1-2 tablets by mouth daily, as needed for 30 days. REINA Class: C-IV ILAN: No Patient last appointment: 12/22/2017 Next Appointment: 04/17/2018 Patient Phone numbers: [phone] (home) Request is for script(s) to be called in to pharmacy. WILNER Billingsley CMA 03/01/2018 1:28 PM Signed The following prescriptions have been called to [facility] pharmacy 03/01/2018 at 1:28 PM by Lucian Cartagena CMA. I spoke with claudia in the pharmacy. Signed Prescriptions Disp Refills traMADol (ULTRAM) 50 mg tablet 60 tablet 0 Sig: Take 1-2 tablets by mouth daily, as needed for 30 days. REINA Class: C-IV ILAN: No Authorizing Provider: JASVIR BOYD Allergies As of Date: 03/01/2018 Noted Allergy Reaction GLUTEN 10/06/2015 14 - Other: See Comments Comments: Upset Stomach; Intolerance SEPTRA (SULFAMETHOXAZOLE-TRIMETHO*10/06/2015 11 - Vomiting 14 - Other: See Comments Comments: Septra DS: Nausea SULFA (SULFONAMIDE ANTIBIOTICS) 08/16/2005 14 - Other: See Comments Comments: Patient Unsure. Date Reviewed: 01/23/2018 Reviewed by: Jonatan Marquez - Fully Assessed Reason for Visit: Refill Request [94] Visit Diagnosis:Chronic pain syndrome [G89.4] Order(s):traMADol (ULTRAM) 50 mg tabletTake 1-2 tablets by mouth daily, as needed for 30 days.Disp: 60 tabletRfl: 0 Prescriptions as of 03/01/2018 Sig: TRAMADOL 50 MG TABLET Take 1-2 tablets by mouth catherine* LUMIGAN 0.01 % EYE DROPS Use 1 Drop in both eyes daily* ORENCIA 125 MG/ML SUBCUTANEOU* INJECT ONE SYRINGE (125 MG) S* LEFLUNOMIDE 10 MG TABLET TAKE 1 TABLET BY MOUTH ONCE D* SIMBRINZA 1 %-0.2 % EYE DROPS* USE 1 DROP IN EYES TWICE DAVIDA* CELECOXIB 200 MG CAPSULE TAKE ONE CAPSULE BY MOUTH CL[place]ON* CYCLOSPORINE 0.05 % EYE DROPS Use in eyes. TIMOLOL MALEATE 0.5 % EYE FLOWER* 1 DROP EVERY MORNING INTO RIG* OMEGA-3 ACID ETHYL ESTERS 1 G* Take 2 capsules by mouth twic* CALCIUM CARBONATE 600 MG (1,5* Take 2 tablets by mouth once * BLOOD SUGAR DIAGNOSTIC STRIPS 10 Each once daily. Use as in* LEVOTHYROXINE 112 MCG TABLET Take 112 mcg by mouth once da* PEN NEEDLE, DIABETIC 32 GAUGE* Inject 4 Units subcutaneously* INSULIN ASPART U-100 100 UNI* Subcutaneous 4 times a day - * LOSARTAN 25 MG TABLET Take 25 mg by mouth once davida* MILK THISTLE ORAL Take 300 mg by mouth. COMPOUNDED PRESCRIPTION Flax seed oil 1000mg ASCORBIC ACID (VITAMIN C) 1,0* Take 1,000 mg by mouth once d* SIMVASTATIN 5 MG TABLET Take 5 mg by mouth daily at b* CHOLECALCIFEROL (VITAMIN D3) * Take by mouth. CYANOCOBALAMIN (VIT B-12) 1,0* Take 1,000 mcg by mouth once * Problem List As Of Date 03/01/2018 Noted Resolved Falls [W19.XXXA] INVALID FOR* DM (diabetes mellitus) [E11.9] INVALID FOR* SLE exacerbation [M32.9] INVALID FOR* Positive cardiolipin antibodies [R76.8] INVALID FOR* Sjogren's syndrome [M35.00] INVALID FOR* Sleep difficulties [G47.9] INVALID FOR* Residual stage of angle-closure glaucoma, bilat*INVALID FOR*01/17/2017 Rheumatoid arthritis (HCC) [M06.9] Osteoporosis [M81.0] Osteoarthritis of hip [M16.9] Degenerative joint disease of shoulder region [* More... Follow-up examination after eye surgery [Z09] INVALID FOR*06/09/2016 Dry eye syndrome [H04.129] INVALID FOR* Pseudophakia, left eye [Z96.1] INVALID FOR* Residual stage of angle-closure glaucoma of bot*INVALID FOR* Closed Colles' fracture of right radius [S52.53*INVALID FOR* Rheumatoid arthritis involving multiple sites w* Chronic pain [G89.29] INVALID FOR* Prescriptions ordered this encounter Disp Refills Start End TRAMADOL 50 MG TABLET 60 t* 0 03/01/2018 03/30/2018 Class: Call Rx Sig: Take 1-2 tablets by mouth daily, as needed for 30 days. Medications Discontinued During This Encounter traMADol (ULTRAM) 50 mg tablet 60 t* 0 09/06/2017 03/01/2018 Class: Print RX Sig: Take 1-2 tablets by mouth daily, as needed. Disc: Reason for discontinue is not on file. Encounter Status:Closed by JASVIR BOYD MD on 03/01/18 BASIC METABOLIC Collected: 02/17/2018 Status: F Source: [place] PROFILE ([facility]) 9:[address] [facility] REPOSITORY TYPE CODE TESTS RESULT OUT OF RANGE REFERENCE UNITS LAB L501.0100 74-106 mg/dL Low GLU 49 Result Comment: Glucose result less than 50 mg/dL suggests HYPOGLYCEMIA. Please note revised GLUCOSE reference range effective 2017. LAB L501.1000 7-18 mg/dL Normal BUN 17 LAB L501.1100 0.55-1.02 mg/dL Normal CREAT,SERUM 0.62 Result Comment: The validity of the calculated GFR AND GFRAA in patients over 70 years has not been determined. Clinical correlation is essential. LAB L501.1110 >60 mL/min Normal EST GFR 104 Result Comment: Non- GFR Calc LAB L501.1115 >60 mL/min Normal EST GFR - AA 126 Result Comment: GFR Calc LAB L501.1300 10-20 RATIO High BUN/CRE 27.2 LAB L501.2200 8.5-10.1 mg/dL CA Normal 8.7 LAB L501.5300 136-145 mmol/L NA Normal 143 LAB L501.5600 3.5-5.1 mmol/L K Normal 4.0 LAB L501.5900 98-107 mmol/L CL Normal 104 LAB L501.6100 21.0-32.0 mmol/L Normal CO2 32.0 LAB L501.6200 5-15 Normal GAP 7 Performed By: #### L500.2500, L500.4100, L501.4100, L501.4405, L501.9520, L506.0400 #### [facility] [address] [place], [address] LIPID PROFILE Collected: 02/17/2018 Status: F Source: [place] 9:[address] [facility] REPOSITORY TYPE CODE TESTS RESULT OUT OF RANGE REFERENCE UNITS LAB L501.4900 200 mg/dL Normal CHOL 157 Result Comment: <200 mg/dL Desirable 200-240 mg/dL Borderline >240 mg/dL High Risk LAB L501.5000 mg/dL Normal TRIG 37 Result Comment: The drugs N-Acetylcysteine and Metamizole may falsely depress this assay. Serum Triglycerides Reference Interval Normal <150 mg/dL Borderline high 150 - 199 mg/dL High 200 - 499 mg/dL Very High > or = 500 mg/dL LAB L501.6400 mg/dL Normal HDL 86 Result Comment: The drugs N-Acetylcysteine and Metamizole may falsely depress this assay. Reference Range HDL <40 mg/dL Low HDL Cholesterol HDL >or= 60 mg/dL High HDL Cholesterol LAB L501.6500 0-130 mg/dL Normal LDL 64 LAB L501.6600 5-40 mg/dL Normal VLDL 7 Performed By: #### L500.2500, L500.4100, L501.4100, L501.4405, L501.9520, L506.0400 #### [facility] [address] [place], [place], [address] AST(SGOT) Collected: 02/17/2018 Status: F Source: [place] 9:[address] [facility] REPOSITORY TYPE CODE TESTS RESULT OUT OF RANGE REFERENCE UNITS LAB L501.4100 15-37 U/L Normal AST 22 Performed By: #### L500.2500, L500.4100, L501.4100, L501.4405, L501.9520, L506.0400 #### [facility] [address] [facility] [address] [place], [place], [id number] ALANINE AMINOTRANSFERAS Collected: 02/17/2018 Status: F Source: [place] (SGPT) 9:[address] [facility] REPOSITORY TYPE CODE TESTS RESULT OUT OF RANGE REFERENCE UNITS LAB L501.4405 13-56 U/L Normal ALT 33 Performed By: #### L500.2500, L500.4100, L501.4100, L501.4405, L501.9520, L506.0400 #### [facility] [address] [place], [place], [id number] THYROID STIM HORMONE Collected: 02/17/2018 Status: F Source: [place] (TSH) 9:[address] [facility] REPOSITORY TYPE CODE TESTS RESULT OUT OF RANGE REFERENCE UNITS LAB L501.9520 0.358-3.74 uIU/mL Normal TSH 2.08 Performed By: #### L500.2500, L500.4100, L501.4100, L501.4405, L501.9520, L506.0400 #### [facility] [address] [place], [address] T4 FREE DIRECT Collected: 02/17/2018 Status: F Source: [place] 9:[address] [facility] REPOSITORY TYPE CODE TESTS RESULT OUT OF RANGE REFERENCE UNITS LAB L506.0400 0.76-1.46 ng/dL Normal T4 FREE 1.25 DIRECT Performed By: #### L500.2500, L500.4100, L501.4100, L501.4405, L501.9520, L506.0400 #### [facility] [address] [place], [address] HEMOGLOBIN A1C Collected: 02/17/2018 Status: F Source: [place] 9:[address] [facility] REPOSITORY TYPE CODE TESTS RESULT OUT OF RANGE REFERENCE UNITS LAB L501.9985 4.2-6.3 % High HGB A1C 6.8 Performed By: #### L501.9985 #### [facility] [place], [address] VITAMIN B12 Collected: 02/17/2018 Status: F Source: [place] 9:[address] [facility] REPOSITORY TYPE CODE TESTS RESULT OUT OF REFERENCE UNITS RANGE LAB L503.0105 211-911 pg/mL High Vitamin B12 1996 Performed By: #### L503.0105, L506.1000 #### [facility] [place], [address] VITAMIN D,25 HYDROXY Collected: 02/17/2018 Status: F Source: [place] 9:[address] [facility] REPOSITORY TYPE CODE TESTS RESULT OUT OF RANGE REFERENCE UNITS LAB L506.1000 29.95-100.01 ng/mL Normal Vitamin D 66.0 25-OH Result Comment: Vitamin D 25(OH) Status Range Deficiency <20 ng/mL (50nmol/L) Insuffciency 20 - 30 ng/mL (50 - 75 nmol/L) Sufficiency 30 - 100 ng/mL (75 - 250 nmol/L) Toxicity >100 ng/mL (>250 nmol/L) Performed By: #### L503.0105, L506.1000 #### [facility] [place], [address] PROGRESS Observed: 01/23/2018 Status: COMPLETED Source: [place] 3:18 PM [facility] REPOSITORY HNO ID: [id number] Author: Jonatan Marquez Service: (none) Author Type: Physician Type: Progress Notes Filed: 01/23/2018 3:32 PM Note Text: Tmax: 20,30; Pachy: 464, 479 Lasers and Surgeries: OD: Lasik (for myopia per pt) 2007 PI OS: 06/04/2016 phaco-GATT for narrow angles, IOP fluctuating 12-19 Lasik (for myopia per pt) 2008 PI Ocular Medication Intol and Non-efficacy: Travatan-increased dryness Now on Timolol bid OD, Lumigan qhs OD, Simbrinza BID OU (added to OD 05/2016), restasis bid OU Residual stage ACG, severe OS; mild OD -HVF today 01/2018 OD 24% false (+), scattered point defects, nonglaucomatous OS dense inf arc encroaching fixation and sup NS - outside octopus VF with similar defect except it also had a dense sup NS Prior HVF here too unreliable to interpret -OCT 01/2017 OD normal, widely split sup hump, OS severe diffuse depression -OD: IOP not ideal but HVF stable, last OCT normal. Same meds -OS: IOP elevated and too high. Add back Lumigan -2 to 3 months IOP OU, dilate OU, OCT RNFL OD only DM type I since age 8. -no retinopathy Dry Eye, Sjogren's syndrome (not addressed today) -tears and gel working well -started restasis 06/2016 (Dr. Dimas) - perhaps some benefit -follow Still dealing with jaw osteonecrosis from osteoporosis meds I, Jonatan Marquez MD, have edited as necessary and confirmed the relevant ophthalmic history, ROS, and neuro exam findings as obtained by others. I have seen and examined Chelsea Naik. I also have reviewed, edited as necessary, and agree with the assessment and plan and all of its relevant components as stated above. I have discussed the case and the management of this patient's care with the Resident/Fellow, if applicable. HEMOGRAM/DIFF Collected: 12/22/2017 Status: F Source: [facility] 11:43 AM [facility] REPOSITORY TYPE CODE TESTS RESULT OUT OF REFERENCE UNITS RANGE LAB WBC(LOINC) 3.98-10.04 thou/cmm WBC 4.51 LAB RBC(LOINC) 3.93-5.22 mil/cmm RBC 4.12 LAB HGB(LOINC) 11.2-15.7 g/dL Hgb 13.3 LAB HCT(LOINC) 34.1-44.9 % Hct 39.9 LAB MCV(LOINC) 79.4-94.8 fl MCV High 96.8 LAB MCH(LOINC) 25.6-32.2 pg MCH High 32.3 LAB MCHC(LOINC 31.6-34.8 % ) MCHC 33.3 LAB RDW(LOINC) 11.7-14.4 % RDW 12.4 LAB RDWSD(LOIN 36.4-46.3 fl C) RDW SD 44.2 LAB PLT(LOINC) 182-369 thou/cmm Low Platelet 138 LAB MPV(LOINC) 9.4-12.3 fl MPV 11.4 LAB SEG(LOINC) % Seg Neutrophil 46.1 LAB IGRE(LOINC % ) Immature Grans 0.20 LAB LYMPH(LOIN % C) Lymphocyte 38.4 LAB MNO(LOINC) % Monocyte 10.6 LAB EOSIN(LOIN % C) Eosinophil 3.8 LAB BASO(LOINC % ) Basophil 0.9 LAB SEGN(LOINC 1.56-6.13 thou/cmm ) Abs. Neut 2.08 LAB IGAB(LOINC 0.00-0.05 thou/cmm ) Abs Immature Grans 0.01 LAB LYMN(LOINC 1.18-3.74 thou/cmm ) Abs. Lymph 1.73 LAB MONON(LOIN 0.27-0.70 thou/cmm C) Abs. [place] 0.48 LAB EOSN(LOINC 0.00-0.31 thou/cmm ) Abs. Eosin 0.17 LAB BASON(LOIN 0.01-0.08 thou/cmm C) Abs. Baso 0.04 Performed By: #### [id number] #### [facility] [address] [place] [address] COMPREHENSIVE PANEL Collected: 12/22/2017 Status: F Source: [facility] 11:43 AM [facility] REPOSITORY TYPE CODE TESTS RESULT OUT OF REFERENCE UNITS RANGE LAB NA(LOINC) 136-145 mEq/L Sodium Blood 139 LAB K(LOINC) 3.5-5.1 mEq/L Potassium Blood 4.3 LAB CL(LOINC) 98-107 mEq/L Chloride Blood 103 LAB CO2(LOINC) 21-32 mEq/L CO2 Blood 29 LAB GLU(LOINC) 70-99 mg/dL Glucose Blood 72 LAB BUN(LOINC) 7-18 mg/dL BUN Blood 12 LAB CREA(LOINC 0.51-0.95 mg/dL ) Creatinine Blood 0.60 LAB CA(LOINC) 8.5-10.1 mg/dL Calcium Blood 8.8 LAB ALB(LOINC) 3.4-5.0 g/dL Albumin Blood 3.8 LAB TP(LOINC) 6.4-8.2 g/dL Total Protein 6.5 LAB AST(LOINC) 9-37 U/L AST-SGOT Blood 24 LAB ALT(LOINC) 12-78 U/L ALT-SGPT Blood 28 LAB ALKP(LOINC 46-116 U/L ) Alk Phosphatase 83 LAB BILIT(LOIN 0.2-1.0 mg/dL C) Total Bilirubin 0.7 LAB ANGAP(LOIN 8-16 C) Anion Gap 11 Performed By: #### P14 #### [place] [address] CRP Collected: 12/22/2017 Status: F Source: [facility] 11:43 [facility] REPOSITORY TYPE CODE TESTS RESULT OUT OF RANGE REFERENCE UNITS LAB CRP3(LOINC) 0.00-0.30 mg/dL CRP < 0.29 Performed By: #### CRP3 #### [place] [address] MDRD GFR Collected: 12/22/2017 Status: F Source: [facility] 11:43 AM [facility] REPOSITORY TYPE CODE TESTS RESULT OUT OF RANGE REFERENCE UNITS LAB GFRFN(LOINC >60mL/min/1.73m ) 2 eGFR >60 Result Comment: If the patient is , multiply the result by 1.210. Performed By: #### GFR #### [facility] [address] [place], [place] [address] SED RATE Collected: 12/22/2017 Status: F Source: [facility] 11:43 AM [facility] REPOSITORY TYPE CODE TESTS RESULT OUT OF RANGE REFERENCE UNITS LAB ESR(LOINC) 0-20 mm/hr Sed Rate 2 Performed By: #### ESR #### [facility] [address] [place], [place] [address] PROGRESS Observed: 12/22/2017 Status: COMPLETED Source: [place] 11:09 AM [facility] REPOSITORY HNO ID: [id number] Author: Jasvir Boyd Service: (none) Author Type: Physician Type: Progress Notes Filed: 12/22/2017 11:32 AM Note Text: Subjective HPI: Chelsea Naik is a 57 year old female who presents with rheumatoid arthritis, osteoporosis , history of multiple fractures, 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 Since then she decided to hold off on treatment for osteoporosis and decided to discontinue Orencia. She's been off Orencia since April 2017 and has been flaring up from her rheumatoid. She recently went back on Orencia and has been taking it every other week instead of weekly just to monitor her LE. Symptoms of so far have been stable. She continues to be on leflunomide 10 mg daily. Her pain is 4/10 in her hips, right hand, right wrist, left elbow and intermittently in her feet. She has swelling in the hands. Stiffness is more than an hour. She continues have trouble with driving and increased activity. She continues to take Celebrex 200 mg daily. Her oral surgeon the past recommended she hold off on Orencia therapy . 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 She's received one dose of prolia in November 2016. She did 2 doses of reclast in the past and prior to that Actonel for 3 years. In September 2015 she fell and fractured her right wrist-distal radius. She had a bone density recently September 2016 with a T score of -2.6 in the right femoral neck. There was a decline in the spine BMD but improvement in the hip BMD. She's had glaucoma in the eye and is legally blind in the left eye and has loss of peripheral vision on the right. She has difficulty driving especially at night. She's on calcium and vitamin D supplements. She is no longer taking tramadol and has been taking Celebrex 200 mg daily. In the past she had a Kenalog injection for left trochanteric bursitis which helped significantly. She wants to continue to avoid methotrexate-she did not like the way it made her feel. In June 26 2014 she took a fall on ice and fractured her left elbow-distal humerus and proximal ulna requiring surgery. She had a bone density recently which showed osteoporosis in the femoral neck with a T score of -2.9 in the right femoral neck in August 2014. She had discontinued methotrexate in the past and is doing well on monotherapy. She went on a gluten-free diet as both her kids are diagnosed with celiac. Testing on her was negative. She continues to be off Plaquenil. She stopped Actonel since May of 2012 as she had trouble swallowing. PAST MEDICAL HISTORY Diagnosis Date - Acquired hypothyroidism autoimmune - Closed fracture of foot 5th metatarsal shaft left. Jack Anderson MD - Degenerative joint disease of shoulder region Left. [facility]. 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 - On predatory animal exterminator drug therapy - Orthostatic proteinuria intermittent. - Osteoarthritis of hip - Osteopenia - Osteoporosis - Rheumatoid arthritis involving multiple sites with positive rheumatoid factor (HCC) - Sjogren's syndrome (HCC) - Trochanteric bursitis bilateral - Type 1 diabetes mellitus (HCC) - Vitamin D deficiency - Vitiligo PAST SURGICAL HISTORY Procedure Laterality Date - EXCISION TONSIL LESIONS BILATERAL 1965 - IRIDOTOMY/IRIDECTOMY BY LASER Right 06/2008 Laser Peripheral Iridotomy (LPI) - IRIDOTOMY/IRIDECTOMY BY LASER Left 07/2009 Laser Peripheral Iridotomy (LPI) - LASIK 1996 both eyes - LIGATE FALLOPIAN TUBE 1996 Tubal ligation - PROCEDURE (SPECIFY) 06/2014 left elbow - PROCEDURE (SPECIFY) 1996 lump removed from right breast - REMV CATARACT EXTRACAP,INSERT LENS Left 06/03/16 PCIOL with Ab interno trabeculotomy OS Health Maintenance Procedures HBA1C due on 11/14/1964 URINE ALBUMIN CREATININE RATIO due on 1975 LDL due on 1975 DIABETIC FOOT EXAM due on 1975 ONE PNEUMOVAX PRIOR TO AGE 65 due on 1975 DTAP,TDAP,TD(1 - Tdap) due on 11/14/1978 PAP EVERY 5 YEARS due on 11/14/1989 HPV EVERY 5 YEARS due on 11/14/1989 MAMMOGRAM due on 1999 HEPATITIS C SCREENING due on 2003 COLORECTAL CANCER SCREENING,SEE MODIFIER due on 11/14/2009 Discussed health maintenance, including regular aerobic exercise, low fat diet, and periodic exams. Health Maintenance Immunizations Given Immunizations: Immunization History Administered Date(s) Administered Influenza Seasonal Inj Age 3+ 05/07/2009 Influenza Seasonal Inj Quadrivalent Age 3+ 05/25/2017 PPD ([place]oux) 03/02/2006 Current Outpatient Prescriptions: ORENCIA 125 mg/mL syrg INJECT ONE SYRINGE (125 MG) SUBCUTANEOUSLY EVERY WEEK. REFRIGERATE. ALLOW TO WARM TO ROOM TEMPERATURE PRIOR TO ADMINISTRATION. leflunomide (ARAVA) 10 mg tablet TAKE 1 TABLET BY MOUTH ONCE DAILY. INDICATIONS: RHEUMATOID ARTHRITIS SIMBRINZA 1-0.2 % Ophth Susp USE 1 DROP IN EYES TWICE DAILY. celecoxib (CELEBREX) 200 mg capsule TAKE ONE CAPSULE BY MOUTH EVERY DAY cycloSPORINE 0.05 % drop Use in eyes. timolol maleate (TIMOPTIC) 0.5 % ophthalmic solution 1 DROP EVERY MORNING INTO RIGHT EYE AND 1 DROP TWICE A DAY INTO LEFT EYE LUMIGAN 0.01 % drop ophthalmic drops Use 1 Drop in the right eye daily at bedtime. omega-3 acid ethyl esters (LOVAZA) 1 gram capsule Take 2 capsules by mouth twice daily. calcium carbonate 600 mg-cholecalciferol 400 units 600 mg(1,500mg) -400 unit tab Take 2 tablets by mouth once daily. blood sugar diagnostic test strip 10 Each once daily. Use as instructed levothyroxine (SYNTHROID) 112 mcg tablet Take 112 mcg by mouth once daily. Insulin Milton, Disposable, 32 gauge x 5/32 ndle Inject 4 Units subcutaneously once daily. insulin aspart (NOVOLOG) 100 unit/mL Soln Subcutaneous 4 times a day - pt adjusts own sliding scale per blood glucose levels losartan 25 mg tablet Take 25 mg by mouth once daily. MILK THISTLE ORAL Take 300 mg by mouth. COMPOUNDED PRESCRIPTION Flax seed oil 1000mg Ascorbic Acid (VITAMIN C) 1,000 mg tablet Take 1,000 mg by mouth once daily. simvastatin 5 mg tablet Take 5 mg by mouth daily at bedtime. Cholecalciferol, Vitamin D3, (VITAMIN D-3) 2,000 unit cap Take by mouth. cyanocobalamin (VITAMIN B-12) 1,000 mcg Tab Take 1,000 mcg by mouth once daily. No current facility-administered medications for this visit. ALLERGIES Allergen Reactions - Gluten Other: See Comments Upset Stomach; Intolerance - Septra [Sulfamethox* Vomiting, Other: See Comments Septra DS: Nausea - Sulfa (Sulfonamide * Other: See Comments Patient Unsure. FAMILY HISTORY Problem Relation Age of Onset - Colon Cancer Father - Diabetes Father Type II - Pulmonary embolism [OTHER] Mother Cause of - Age 41 - MS [OTHER] Paternal Uncle Cause of - Stroke Maternal Grandfather Cause of Social History Marital status: Spouse name: Years of education: Number of children: Occupational History Occupation Employer [employer] Social History Main Topics Smoking status: Never Smoker Smokeless tobacco: Never Used Alcohol use: Yes 1.5 oz/week Glasses of Wine (5oz): 1 per week Comment: 1-2 times a year Drug use: No Other Topics Concern Special Diet Not Asked Comment:Good diet Exercise Not Asked Comment:Excercises 5 or more days/wk History Review: I have reviewed and modified as needed, the following during this visit: Allergies, Past Medical History, Past Surgical History, Past Family History, Past Social History. Review of Systems CONSTITUTIONAL: Negative for weight gain, weight loss, fatigue, weakness, fever, falls EYES: Negative for Eye Pain, Eye Redness, Reduced Vision, Diplopia, Blurred Vision, Dryness, Feels like something in Eye(s), Eye Itching NOSE, THROAT: Negative for frequent or significant headaches, No changes in hearing or vision, no nose bleeds or other nasal problems NECK: Negative for lumps, goiter, pain and significant neck swelling RESPIRATORY: Negative for cough, hemoptysis, wheezing or shortness of breath CARDIOVASCULAR: No chest pain, arrhythmia, palpitations, heart murmurs GI: No nausea, vomiting, or diarrhea : No history of dysuria, frequency or incontinence Kidney disease/stones: no MUSCULOSKELETAL: Negative for ,muscle weakness, back pain , positive for joint pain, positive for joint swelling, positive for morning stiffness SKIN: Negative for changes in the skin redness, easily bruising, pruritus, skin rash, malar rash, hives, sun sensitivity, tightness, nodules/bumps, hair loss, skin lesion, ulcerations, color changles of hands or feet in the cold PSYCH: Negative for excessive worries, anxious, easily losing temper, feeling depressed, feeling agitated, diffuclty falling asleep, diffuclty staying asleep HEMATOLOGY/LYMPHOLOGY Negative for prolonged bleeding, bruising easily or swollen nodes ENDOCRINE: Negative for cold or heat intolerance, polyuria, polydipsia and goiter NEURO: Negative for headache, dizziness, syncope, muscle spasms, tingling, loss of consciousness, sensitivity or pain of hands and/or feet, memory loss, night sweats BP 126/72 Pulse 68 Temp 36.5 ?C (97.7 ?F) Ht 162.6 cm (5' 4) Wt 59.4 kg (131 lb) BMI 22.49 kg/m? Physical Exam GENERAL: Well appearing, alert, comfortable, in no acute distress, well-hydrated, well nourished. HEENT: Negative for external ears normal. Canals are clear. Both TMs visualized and are normal. Eye Exam normal. External nose normal, no nasal ulcer or throat ulcer. NECK: NECK Supple, no adenopathy; thyroid symmetric, normal size, no bruits CARDIAC: regular rate and rhythm, No murmur asculated. and Equal peripheral pulses RESPIRATORY: Lungs clear to auscultation. No wheezing, rhonchi, rales VASCULAR: RRR without murmur, gallop, or rubs. No ectopy. ABDOMEN: Soft, non tender. BS active. No masses or organomegaly. LYMPHATIC: Negative for adenopathy in the neck, axillae, groin, supraclavicular and auricular. NEURO: Motor and sensory exam normal MOTOR: Normal; including tone, gait, stressed gait, power and coordination. SKIN: Negative for alopecia, skin rash, malar rash, skin lesion, skin ulcer, pits, thickening, color changes, telangiectasias, nail changes, nail ridging, nail pitting, onycholysis MUSCULOSKELETAL: Mild tenderness right wrist Fullness and tenderness right second third MCPs and second third PIPs Fullness and tenderness left second MCP Tenderness bilateral trochanteric bursa MTP squeeze test positive bilaterally Serology: : RF: +, CCP: +, MITCHELL: 1:640, DNA: +, Repeat double-stranded DNA negative Lab Results: September 06, 2017 CMP normal CBC normal ESR 5 CRP normal Radiology Results: The full radiology report is copied below. X-ray left foot 09/2017 There is no acute bony abnormality identified. ?There is an old healed fracture of ?the mid shaft of the fifth metatarsal. ?No dislocation, stress related change or significant arthrosis. ?Normal soft tissues. EMG nerve conduction test February 2017 Right common peroneal mononeuropathy October 2016 X-ray right knee Normal X-ray of the hips 1. ?Minimal joint space narrowing involving the left hip. ? 2. ?Otherwise negative pelvis, and negative right and left hips. Bone density scan in September 2016 T score -2.6 right femoral neck Assessment (M05.79) Rheumatoid arthritis involving multiple sites with positive rheumatoid factor (HCC) (primary encounter diagnosis) (M19.011, M19.012) Primary osteoarthritis of both shoulders (M81.0) Osteoporosis, unspecified osteoporosis type, unspecified pathological fracture presence (M16.0) Primary osteoarthritis of both hips (R76.8) Positive cardiolipin antibodies (G89.4) Chronic pain syndrome 57-year-old with #1 sero positive rheumatoid arthritis with moderate synovitis today- on leflunomide 10 mg daily and more recently on Orencia every other week-had been off Orencia from April 2017 up until September 2017 with increase in symptoms. Continues to have synovitis but slightly improved since last visit. Has been taking lower dose of Orencia to monitor her osteonecrosis of the jaw. A cough Orencia by oral surgeon in the past. #2 severe osteoporosis-recent bone density with a T score of -2.6 in the femoral neck, recent fracture right distal radius September 2016. history of fracture left distal humerus/proximal ulnar fracture in June 2014. On calcium and vitamin D supplementation. History of Actonel use in the past has been discontinued in 2011 because of GI intolerance-received first dose of Reclast in October 2014 and second dose October 2015. Has done one dose of prolia November 2016. Currently not on treatment for osteoporosis-was recommended Tymlos but wants to hold off since recently diagnosed with osteonecrosis of the jaw. Wants to continue to hold off #3 recent right distal radius fracture, prior to that had left distal femur/proximal ulnar fracture post surgery-continues to have pain from past fractures #4 left shoulder impingement-improved with exercise and injection. Also has acromioclavicular joint arthrosis on the left and on MRI #5 history of left trochanteric bursitis with mild degenerative arthritis in the hip-improved with Kenalog injection in the past-mild symptoms today. Recent imaging continues to show mild degenerative arthritis left hip-continues to be symptomatic #6 type 1 diabetes on insulin, hypertension, hypothyroidism, vitiligo, depression, glaucoma, intermittent proteinuria #7 family history of celiac disease-both get her diagnosis celiac. She has gone on a gluten-free diet with overall improvement in generalized pain #8 history of TNF induced SLE - recent double-stranded DNA negative. History of positive anti-Cardiolipin antibodies and leukopenia. On aspirin. Plaquenil discontinued without problems #9 mild lumbar spondylosis-symptoms improved-intermittent symptoms #10sicca symptoms, glaucoma with loss of vision left eye and some symptoms on the right-has seen bar turner #11 recent upper back pain and long standing chronic low back pain-continues to have symptoms mostly in the lower back. Upper back pain resolved. Imaging through PCP did not show any fractures. 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 Treated with antibiotics since April 2017-improved. Not on treatment for osteoporosis and recently started back Orencia on low-dose Plan Rheumatoid arthritis flaring up today. Continues to have synovitis. Slightly improved with Orencia every other week but still is active disease No active infections at this time. No worsening of her osteonecrosis of the jaw. Will need to increase Orencia to weekly to better control her rheumatoid Continue leflunomide 10 mg daily Blood work to monitor medications and disease activity She is going to increase her Orencia dose weekly since overall her symptoms have been stable with the jaw Follow-up with oral surgeon as needed She wants to continue to hold off on no treatment for osteoporosis Continue calcium and vitamin D supplements Continue symptomatically treatment of sicca symptoms. Close follow-up with bar turner for glaucoma Continue bone density screening every 2 years. Celiac disease also a risk factor for osteoporosis although she has been on a gluten- free diet Continue tramadol for pain-she's been taking it daily at bedtime Continue Celebrex 200 mg daily Follow-up in 3-4 months Plan Office Visit on 12/22/17 -CBC + DIFF -COMP METABOLIC PANEL -C-REACTIVE PROTEIN (CRP) -SED RATE WESTERGREN Return in about 3 months (around 03/24/2018). Jasvir Byod MD CNOV Observed: 12/22/2017 Status: COMPLETED Source: [facility] 11:00 AM CLINIC OTHER CAMPUS REPOSITORY Office Visit (JATIN[facility]ANYA) CHELSEA NAIK ([id number]) 1960 F Date Time Provider Department 12/22/17 11:00 AM JASVIR BOYD During your visit today, we recorded the following information about you: Temperature Pulse Blood pressure Weight 97.7 degrees 68/minute 126/72 59.4 kg Height 1.626 m Jasvir Boyd MD 12/22/2017 11:32 AM Signed Subjective HPI: Chelsea He Juvencio is a 57 year old female who presents with rheumatoid arthritis, osteoporosis , history of multiple fractures, 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 Since then she decided to hold off on treatment for osteoporosis and decided to discontinue Orencia. She's been off Orencia since April 2017 and has been flaring up from her rheumatoid. She recently went back on Orencia and has been taking it every other week instead of weekly just to monitor her LE. Symptoms of so far have been stable. She continues to be on leflunomide 10 mg daily. Her pain is 4/10 in her hips, right hand, right wrist, left elbow and intermittently in her feet. She has swelling in the hands. Stiffness is more than an hour. She continues have trouble with driving and increased activity. She continues to take Celebrex 200 mg daily. Her oral surgeon the past recommended she hold off on Orencia therapy . 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 She's received one dose of prolia in November 2016. She did 2 doses of reclast in the past and prior to that Actonel for 3 years. In September 2015 she fell and fractured her right wrist-distal radius. She had a bone density recently September 2016 with a T score of -2.6 in the right femoral neck. There was a decline in the spine BMD but improvement in the hip BMD. She's had glaucoma in the eye and is legally blind in the left eye and has loss of peripheral vision on the right. She has difficulty driving especially at night. She's on calcium and vitamin D supplements. She is no longer taking tramadol and has been taking Celebrex 200 mg daily. In the past she had a Kenalog injection for left trochanteric bursitis which helped significantly. She wants to continue to avoid methotrexate- she did not like the way it made her feel. In June 26 2014 she took a fall on ice and fractured her left elbow-distal humerus and proximal ulna requiring surgery. She had a bone density recently which showed osteoporosis in the femoral neck with a T score of -2.9 in the right femoral neck in August 2014. She had discontinued methotrexate in the past and is doing well on monotherapy. She went on a gluten-free diet as both her kids are diagnosed with celiac. Testing on her was negative. She continues to be off Plaquenil. She stopped Actonel since May of 2012 as she had trouble swallowing. PAST MEDICAL HISTORY Diagnosis Date - Acquired hypothyroidism autoimmune - Closed fracture of foot 5th metatarsal shaft left. Jack Anderson MD - Degenerative joint disease of shoulder region Left. MRI [facility]. 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 - On predatory animal exterminator drug therapy - Orthostatic proteinuria intermittent. - Osteoarthritis of hip - Osteopenia - Osteoporosis - Rheumatoid arthritis involving multiple sites with positive rheumatoid factor (HCC) - Sjogren's syndrome (HCC) - Trochanteric bursitis bilateral - Type 1 diabetes mellitus (HCC) - Vitamin D deficiency - Vitiligo PAST SURGICAL HISTORY Procedure Laterality Date - EXCISION TONSIL LESIONS BILATERAL 1965 - IRIDOTOMY/IRIDECTOMY BY LASER Right 06/2008 Laser Peripheral Iridotomy (LPI) - IRIDOTOMY/IRIDECTOMY BY LASER Left 07/2009 Laser Peripheral Iridotomy (LPI) - LASIK 1996 both eyes - LIGATE FALLOPIAN TUBE 1996 Tubal ligation - PROCEDURE (SPECIFY) 06/2014 left elbow - PROCEDURE (SPECIFY) 1996 lump removed from right breast - REMV CATARACT EXTRACAP,INSERT LENS Left 06/03/16 PCIOL with Ab interno trabeculotomy OS Health Maintenance Procedures HBA1C due on 11/14/1964 URINE ALBUMIN CREATININE RATIO due on 1975 LDL due on 1975 DIABETIC FOOT EXAM due on 1975 ONE PNEUMOVAX PRIOR TO AGE 65 due on 1975 DTAP,TDAP,TD(1 - Tdap) due on 11/14/1978 PAP EVERY 5 YEARS due on 11/14/1989 HPV EVERY 5 YEARS due on 11/14/1989 MAMMOGRAM due on 1999 HEPATITIS C SCREENING due on 2003 COLORECTAL CANCER SCREENING,SEE MODIFIER due on 11/14/2009 Discussed health maintenance, including regular aerobic exercise, low fat diet, and periodic exams. Health Maintenance Immunizations Given Immunizations: Immunization History Administered Date(s) Administered Influenza Seasonal Inj Age 3+ 05/07/2009 Influenza Seasonal Inj Quadrivalent Age 3+ 05/25/2017 PPD ([place]) 03/02/2006 Current Outpatient Prescriptions: ORENCIA 125 mg/mL syrg INJECT ONE SYRINGE (125 MG) SUBCUTANEOUSLY EVERY WEEK. REFRIGERATE. ALLOW TO WARM TO ROOM TEMPERATURE PRIOR TO ADMINISTRATION. leflunomide (ARAVA) 10 mg tablet TAKE 1 TABLET BY MOUTH ONCE DAILY. INDICATIONS: RHEUMATOID ARTHRITIS SIMBRINZA 1-0.2 % Ophth Susp USE 1 DROP IN EYES TWICE DAILY. celecoxib (CELEBREX) 200 mg capsule TAKE ONE CAPSULE BY MOUTH EVERY DAY cycloSPORINE 0.05 % drop Use in eyes. timolol maleate (TIMOPTIC) 0.5 % ophthalmic solution 1 DROP EVERY MORNING INTO RIGHT EYE AND 1 DROP TWICE A DAY INTO LEFT EYE LUMIGAN 0.01 % drop ophthalmic drops Use 1 Drop in the right eye daily at bedtime. omega-3 acid ethyl esters (LOVAZA) 1 gram capsule Take 2 capsules by mouth twice daily. calcium carbonate 600 mg-cholecalciferol 400 units 600 mg(1,500mg) -400 unit tab Take 2 tablets by mouth once daily. blood sugar diagnostic test strip 10 Each once daily. Use as instructed levothyroxine (SYNTHROID) 112 mcg tablet Take 112 mcg by mouth once daily. Insulin Milton, Disposable, 32 gauge x 5/32 ndle Inject 4 Units subcutaneously once daily. insulin aspart (NOVOLOG) 100 unit/mL Soln Subcutaneous 4 times a day - pt adjusts own sliding scale per blood glucose levels losartan 25 mg tablet Take 25 mg by mouth once daily. MILK THISTLE ORAL Take 300 mg by mouth. COMPOUNDED PRESCRIPTION Flax seed oil 1000mg Ascorbic Acid (VITAMIN C) 1,000 mg tablet Take 1,000 mg by mouth once daily. simvastatin 5 mg tablet Take 5 mg by mouth daily at bedtime. Cholecalciferol, Vitamin D3, (VITAMIN D-3) 2,000 unit cap Take by mouth. cyanocobalamin (VITAMIN B-12) 1,000 mcg Tab Take 1,000 mcg by mouth once daily. No current facility-administered medications for this visit. ALLERGIES Allergen Reactions - Gluten Other: See Comments Upset Stomach; Intolerance - Septra [Sulfamethox* Vomiting, Other: See Comments Septra DS: Nausea - Sulfa (Sulfonamide * Other: See Comments Patient Unsure. FAMILY HISTORY Problem Relation Age of Onset - Colon Cancer Father - Diabetes Father Type II - Pulmonary embolism [OTHER] Mother Cause of - Age 41 - MS [OTHER] Paternal Uncle Cause of - Stroke Maternal Grandfather Cause of Social History Marital status: Spouse name: Years of education: Number of children: Occupational History Occupation Employer [employer] Social History Main Topics Smoking status: Never Smoker Smokeless tobacco: Never Used Alcohol use: Yes 1.5 oz/week Glasses of Wine (5oz): 1 per week Comment: 1-2 times a year Drug use: No Other Topics Concern Special Diet Not Asked Comment:Good diet Exercise Not Asked Comment:Excercises 5 or more days/wk History Review: I have reviewed and modified as needed, the following during this visit: Allergies, Past Medical History, Past Surgical History, Past Family History, Past Social History. Review of Systems CONSTITUTIONAL: Negative for weight gain, weight loss, fatigue, weakness, fever, falls EYES: Negative for Eye Pain, Eye Redness, Reduced Vision, Diplopia, Blurred Vision, Dryness, Feels like something in Eye(s), Eye Itching NOSE, THROAT: Negative for frequent or significant headaches, No changes in hearing or vision, no nose bleeds or other nasal problems NECK: Negative for lumps, goiter, pain and significant neck swelling RESPIRATORY: Negative for cough, hemoptysis, wheezing or shortness of breath CARDIOVASCULAR: No chest pain, arrhythmia, palpitations, heart murmurs GI: No nausea, vomiting, or diarrhea : No history of dysuria, frequency or incontinence Kidney disease/stones: no MUSCULOSKELETAL: Negative for ,muscle weakness, back pain , positive for joint pain, positive for joint swelling, positive for morning stiffness SKIN: Negative for changes in the skin redness, easily bruising, pruritus, skin rash, malar rash, hives, sun sensitivity, tightness, nodules/bumps, hair loss, skin lesion, ulcerations, color changles of hands or feet in the cold PSYCH: Negative for excessive worries, anxious, easily losing temper, feeling depressed, feeling agitated, diffuclty falling asleep, diffuclty staying asleep HEMATOLOGY/LYMPHOLOGY Negative for prolonged bleeding, bruising easily or swollen nodes ENDOCRINE: Negative for cold or heat intolerance, polyuria, polydipsia and goiter NEURO: Negative for headache, dizziness, syncope, muscle spasms, tingling, loss of consciousness, sensitivity or pain of hands and/or feet, memory loss, night sweats BP 126/72 Pulse 68 Temp 36.5 ?C (97.7 ?F) Ht 162.6 cm (5' 4) Wt 59.4 kg (131 lb) BMI 22.49 kg/m? Physical Exam GENERAL: Well appearing, alert, comfortable, in no acute distress, well-hydrated, well nourished. HEENT: Negative for external ears normal. Canals are clear. Both TMs visualized and are normal. Eye Exam normal. External nose normal, no nasal ulcer or throat ulcer. NECK: NECK Supple, no adenopathy; thyroid symmetric, normal size, no bruits CARDIAC: regular rate and rhythm, No murmur asculated. and Equal peripheral pulses RESPIRATORY: Lungs clear to auscultation. No wheezing, rhonchi, rales VASCULAR: RRR without murmur, gallop, or rubs. No ectopy. ABDOMEN: Soft, non tender. BS active. No masses or organomegaly. LYMPHATIC: Negative for adenopathy in the neck, axillae, groin, supraclavicular and auricular. NEURO: Motor and sensory exam normal MOTOR: Normal; including tone, gait, stressed gait, power and coordination. SKIN: Negative for alopecia, skin rash, malar rash, skin lesion, skin ulcer, pits, thickening, color changes, telangiectasias, nail changes, nail ridging, nail pitting, onycholysis MUSCULOSKELETAL: Mild tenderness right wrist Fullness and tenderness right second third MCPs and second third PIPs Fullness and tenderness left second MCP Tenderness bilateral trochanteric bursa MTP squeeze test positive bilaterally Serology: : RF: +, CCP: +, MITCHELL: 1:640, DNA: +, Repeat double-stranded DNA negative Lab Results: September 06, 2017 CMP normal CBC normal ESR 5 CRP normal Radiology Results: The full radiology report is copied below. X-ray left foot 09/2017 There is no acute bony abnormality identified. ?There is an old healed fracture of ?the mid shaft of the fifth metatarsal. ?No dislocation, stress related change or significant arthrosis. ?Normal soft tissues. EMG nerve conduction test February 2017 Right common peroneal mononeuropathy October 2016 X-ray right knee Normal X-ray of the hips 1. ?Minimal joint space narrowing involving the left hip. ? 2. ?Otherwise negative pelvis, and negative right and left hips. Bone density scan in September 2016 T score -2.6 right femoral neck Assessment (M05.79) Rheumatoid arthritis involving multiple sites with positive rheumatoid factor (HCC) (primary encounter diagnosis) (M19.011, M19.012) Primary osteoarthritis of both shoulders (M81.0) Osteoporosis, unspecified osteoporosis type, unspecified pathological fracture presence (M16.0) Primary osteoarthritis of both hips (R76.8) Positive cardiolipin antibodies (G89.4) Chronic pain syndrome 57-year-old with #1 sero positive rheumatoid arthritis with moderate synovitis today- on leflunomide 10 mg daily and more recently on Orencia every other week-had been off Orencia from April 2017 up until September 2017 with increase in symptoms. Continues to have synovitis but slightly improved since last visit. Has been taking lower dose of Orencia to monitor her osteonecrosis of the jaw. A cough Orencia by oral surgeon in the past. #2 severe osteoporosis-recent bone density with a T score of -2.6 in the femoral neck, recent fracture right distal radius September 2016. history of fracture left distal humerus/proximal ulnar fracture in June 2014. On calcium and vitamin D supplementation. History of Actonel use in the past has been discontinued in 2011 because of GI intolerance-received first dose of Reclast in October 2014 and second dose October 2015. Has done one dose of prolia November 2016. Currently not on treatment for osteoporosis-was recommended Tymlos but wants to hold off since recently diagnosed with osteonecrosis of the jaw. Wants to continue to hold off #3 recent right distal radius fracture, prior to that had left distal femur/proximal ulnar fracture post surgery-continues to have pain from past fractures #4 left shoulder impingement-improved with exercise and injection. Also has acromioclavicular joint arthrosis on the left and on MRI #5 history of left trochanteric bursitis with mild degenerative arthritis in the hip-improved with Kenalog injection in the past-mild symptoms today. Recent imaging continues to show mild degenerative arthritis left hip-continues to be symptomatic #6 type 1 diabetes on insulin, hypertension, hypothyroidism, vitiligo, depression, glaucoma, intermittent proteinuria #7 family history of celiac disease-both get her diagnosis celiac. She has gone on a gluten-free diet with overall improvement in generalized pain #8 history of TNF induced SLE - recent double-stranded DNA negative. History of positive anti-Cardiolipin antibodies and leukopenia. On aspirin. Plaquenil discontinued without problems #9 mild lumbar spondylosis-symptoms improved-intermittent symptoms #10sicca symptoms, glaucoma with loss of vision left eye and some symptoms on the right-has seen bar turner #11 recent upper back pain and long standing chronic low back pain-continues to have symptoms mostly in the lower back. Upper back pain resolved. Imaging through PCP did not show any fractures. 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 Treated with antibiotics since April 2017-improved. Not on treatment for osteoporosis and recently started back Orencia on low-dose Plan Rheumatoid arthritis flaring up today. Continues to have synovitis. Slightly improved with Orencia every other week but still is active disease No active infections at this time. No worsening of her osteonecrosis of the jaw. Will need to increase Orencia to weekly to better control her rheumatoid Continue leflunomide 10 mg daily Blood work to monitor medications and disease activity She is going to increase her Orencia dose weekly since overall her symptoms have been stable with the jaw Follow-up with oral surgeon as needed She wants to continue to hold off on no treatment for osteoporosis Continue calcium and vitamin D supplements Continue symptomatically treatment of sicca symptoms. Close follow-up with bar turner for glaucoma Continue bone density screening every 2 years. Celiac disease also a risk factor for osteoporosis although she has been on a gluten- free diet Continue tramadol for pain-she's been taking it daily at bedtime Continue Celebrex 200 mg daily Follow-up in 3-4 months Plan Office Visit on 12/22/17 -CBC + DIFF -COMP METABOLIC PANEL -C-REACTIVE PROTEIN (CRP) -SED RATE WESTERGREN Return in about 3 months (around 03/24/2018). Jasvir Boyd MD Referring Provider: JASVIR BOYD [[id number]] Allergies As of Date: 12/22/2017 Noted Allergy Reaction GLUTEN 10/06/2015 14 - Other: See Comments Comments: Upset Stomach; Intolerance SEPTRA (SULFAMETHOXAZOLE-TRIMETHO*10/06/2015 11 - Vomiting 14 - Other: See Comments Comments: Septra DS: Nausea SULFA (SULFONAMIDE ANTIBIOTICS) 08/16/2005 14 - Other: See Comments Comments: Patient Unsure. Date Reviewed: 12/22/2017 Reviewed by: Jasvir Boyd - Fully Assessed Reason for Visit: Follow Up [171] Primary Visit Diagnosis:Rheumatoid arthritis involving multiple sites with positive rheumatoid factor (HCC) [M05.79] Other Visit Diagnoses:Primary osteoarthritis of both shoulders [M19.011, M19.012] Osteoporosis, unspecified osteoporosis type, unspecified pathological fracture presence [M81.0] Primary osteoarthritis of both hips [M16.0] Positive cardiolipin antibodies [R76.8] Chronic pain syndrome [G89.4] Order(s):CBC + DIFF [SQCBCDIF] Order #: [id number] FUTURE COMP METABOLIC PANEL [SQCMP] Order #: [id number] FUTURE C-REACTIVE PROTEIN (CRP) [SQCRP] Order #: [id number] FUTURE SED RATE WESTERGREN [SQWSR] Order #: [id number] FUTURE Prescriptions as of 12/22/2017 Sig: ORENCIA 125 MG/ML SUBCUTANEOU* INJECT ONE SYRINGE (125 MG) S* LEFLUNOMIDE 10 MG TABLET TAKE 1 TABLET BY MOUTH ONCE D* SIMBRINZA 1 %-0.2 % EYE DROPS* USE 1 DROP IN EYES TWICE DAVIDA* CELECOXIB 200 MG CAPSULE TAKE ONE CAPSULE BY MOUTH CLIFTON* CYCLOSPORINE 0.05 % EYE DROPS Use in eyes. TIMOLOL MALEATE 0.5 % EYE FLOWER* 1 DROP EVERY MORNING INTO RIG* LUMIGAN 0.01 % EYE DROPS Use 1 Drop in the right eye d* OMEGA-3 ACID ETHYL ESTERS 1 G* Take 2 capsules by mouth twic* CALCIUM CARBONATE 600 MG (1,5* Take 2 tablets by mouth once * BLOOD SUGAR DIAGNOSTIC STRIPS 10 Each once daily. Use as in* LEVOTHYROXINE 112 MCG TABLET Take 112 mcg by mouth once da* PEN NEEDLE, DIABETIC 32 GAUGE* Inject 4 Units subcutaneously* INSULIN ASPART U-100 100 UNI* Subcutaneous 4 times a day - * LOSARTAN 25 MG TABLET Take 25 mg by mouth once davida* MILK THISTLE ORAL Take 300 mg by mouth. COMPOUNDED PRESCRIPTION Flax seed oil 1000mg ASCORBIC ACID (VITAMIN C) 1,0* Take 1,000 mg by mouth once d* SIMVASTATIN 5 MG TABLET Take 5 mg by mouth daily at b* CHOLECALCIFEROL (VITAMIN D3) * Take by mouth. CYANOCOBALAMIN (VIT B-12) 1,0* Take 1,000 mcg by mouth once * Medication notes this encounter AMOXICILLIN 875 MG-POTASSIUM CLAVULANATE 125 MG TABLET >> Lucian Cartagena CMA 12/22/2017 11:10 AM >> LUCIAN CARTAGENA CMA Debra December 22, 2017 11:10 AM Patient is not taking. Lucian Cartagena CMA ABATACEPT 125 MG/ML SUBCUTANEOUS SYRINGE >> Lucian Cartagena CMA 12/22/2017 11:31 AM >> LUCIAN CARTAGENA CMA December 22, 2017 11:31 AM Duplicate Problem List As Of Date 12/22/2017 Noted Resolved Falls [W19.XXXA] INVALID FOR* DM (diabetes mellitus) [E11.9] INVALID FOR* SLE exacerbation [M32.9] INVALID FOR* Positive cardiolipin antibodies [R76.8] INVALID FOR* Sjogren's syndrome [M35.00] INVALID FOR* Sleep difficulties [G47.9] INVALID FOR* Residual stage of angle-closure glaucoma, bilat*INVALID FOR*01/17/2017 Rheumatoid arthritis (HCC) [M06.9] Osteoporosis [M81.0] Osteoarthritis of hip [M16.9] Degenerative joint disease of shoulder region [* More... Follow-up examination after eye surgery [Z09] INVALID FOR*06/09/2016 Dry eye syndrome [H04.129] INVALID FOR* Pseudophakia, left eye [Z96.1] INVALID FOR* Residual stage of angle-closure glaucoma of bot*INVALID FOR* Closed Colles' fracture of right radius [S52.53*INVALID FOR* Rheumatoid arthritis involving multiple sites w* Chronic pain [G89.29] INVALID FOR* Medications Discontinued During This Encounter amoxicillin-clavulanic acid (AUGMENT* 12/22/2017 Class: Historical Med Route: ORAL Sig: Take 1 tablet by mouth twice daily. Disc: Reason for discontinue is not on file. abatacept (ORENCIA) 125 mg/mL syrg 12 S* 0 05/04/2016 12/22/2017 Route: SUBCUTANEOUS Sig: Inject 125 mL subcutaneously once each week. Indications: RHEUMATOID ARTHRITIS Disc: Reason for discontinue is not on file. Disposition: Return in about 3 months (around 03/24/2018). Follow-up and Disposition History Recorded Questionnaire: RIGO ADAM YEARLY ADL ASSESSMENT Toileting -> Independent Bathing -> Independent Upper Body Dressing -> Independent Lower Body Dressing -> Independent Grooming/Hygiene -> Independent Self Feeding -> Independent Home Management (laundry/cleaning/chores/simple meal prep) -> Independent Encounter Status:Closed by JASVIR BOYD MD on 12/22/17 HEMOGLOBIN A1C Collected: 11/19/2017 Status: F Source: [place] 9:[address] [facility] REPOSITORY TYPE CODE TESTS RESULT OUT OF RANGE REFERENCE UNITS LAB L501.9985 4.2-6.3 % High HGB A1C 7.1 Performed By: #### L501.9985 #### [facility] [address] [place], [place], [address] BASIC METABOLIC Collected: 11/19/2017 Status: F Source: [place] PROFILE (BMP) 9:[address] [facility] REPOSITORY TYPE CODE TESTS RESULT OUT OF RANGE REFERENCE UNITS LAB L501.0100 74-106 mg/dL Normal GLU 103 Result Comment: Fasting Glucose result from 100 to 125 mg/dL suggests IMPAIRED HOMEOSTASIS per A.D.A. criteria. Please note revised GLUCOSE reference range effective 2017. LAB L501.1000 7-18 mg/dL Normal BUN 11 LAB L501.1100 0.55-1.02 mg/dL Normal CREAT,SERUM 0.59 Result Comment: The validity of the calculated GFR AND GFRAA in patients over 70 years has not been determined. Clinical correlation is essential. LAB L501.1110 >60 mL/min Normal EST GFR 111 Result Comment: Non- GFR Calc LAB L501.1115 >60 mL/min Normal EST GFR - AA 135 Result Comment: GFR Calc LAB L501.1300 10-20 RATIO Normal BUN/CRE 18.6 LAB L501.2200 8.5-10.1 mg/dL CA Normal 8.5 LAB L501.5300 136-145 mmol/L NA Normal 143 LAB L501.5600 3.5-5.1 mmol/L K Normal 4.0 LAB L501.5900 98-107 mmol/L CL Normal 107 LAB L501.6100 21.0-32.0 mmol/L Normal CO2 29.0 LAB L501.6200 5-15 Normal GAP 7 Performed By: #### L500.2500, L500.4100, L501.4100, L501.4405, L501.9520, L506.0400 #### [facility] [address] [place], [address] LIPID PROFILE Collected: 11/19/2017 Status: F Source: [place] 9:[address] [facility] REPOSITORY TYPE CODE TESTS RESULT OUT OF RANGE REFERENCE UNITS LAB L501.4900 200 mg/dL Normal CHOL 152 Result Comment: <200 mg/dL Desirable 200-240 mg/dL Borderline >240 mg/dL High Risk LAB L501.5000 mg/dL Normal TRIG 26 Result Comment: The drugs N-Acetylcysteine and Metamizole may falsely depress this assay. Serum Triglycerides Reference Interval Normal <150 mg/dL Borderline high 150 - 199 mg/dL High 200 - 499 mg/dL Very High > or = 500 mg/dL LAB L501.6400 mg/dL Normal HDL 89 Result Comment: The drugs N-Acetylcysteine and Metamizole may falsely depress this assay. Reference Range HDL <40 mg/dL Low HDL Cholesterol HDL >or= 60 mg/dL High HDL Cholesterol LAB L501.6500 0-130 mg/dL Normal LDL 58 LAB L501.6600 5-40 mg/dL Normal VLDL 5 Performed By: #### L500.2500, L500.4100, L501.4100, L501.4405, L501.9520, L506.0400 #### [facility] [address] [place], [place], [address] AST(SGOT) Collected: 11/19/2017 Status: F Source: [place] 9:[address] [facility] REPOSITORY TYPE CODE TESTS RESULT OUT OF RANGE REFERENCE UNITS LAB L501.4100 15-37 U/L Normal AST 23 Performed By: #### L500.2500, L500.4100, L501.4100, L501.4405, L501.9520, L506.0400 #### [facility] [address] [place], [place], [address] ALANINE AMINOTRANSFERAS Collected: 11/19/2017 Status: F Source: [place] (SGPT) 9:[address] [facility] REPOSITORY TYPE CODE TESTS RESULT OUT OF RANGE REFERENCE UNITS LAB L501.4405 13-56 U/L Normal ALT 26 Performed By: #### L500.2500, L500.4100, L501.4100, L501.4405, L501.9520, L506.0400 #### [facility] [address] [facility] [address] [place], [place], [address] THYROID STIM HORMONE Collected: 11/19/2017 Status: F Source: [place] (TSH) 9:[address] [facility] REPOSITORY TYPE CODE TESTS RESULT OUT OF RANGE REFERENCE UNITS LAB L501.9520 0.358-3.74 uIU/mL Normal TSH 0.73 Performed By: #### L500.2500, L500.4100, L501.4100, L501.4405, L501.9520, L506.0400 #### [facility] [address] [facility] [address] [place], [place], [address] T4 FREE DIRECT Collected: 11/19/2017 Status: F Source: [place] 9:[address] [facility] REPOSITORY TYPE CODE TESTS RESULT OUT OF REFERENCE UNITS RANGE LAB L506.0400 0.76-1.46 ng/dL High T4 FREE 1.58 DIRECT Performed By: #### L500.2500, L500.4100, L501.4100, L501.4405, L501.9520, L506.0400 #### [facility] [address] [facility] [address] [place], [place], [address] OBSOLETE Observed: 11/10/2017 Status: COMPLETED Source: [place] 12:00 AM [facility] REPOSITORY Refill (AGR[place]HWN) CHELSEA NAIK ([id number]) 1960 F Date Time Provider Department 11/10/17 JASVIR BOYD During your visit today, we recorded the following information about you: Lucian Cartagena CMA 11/10/2017 9:36 AM Signed Pharmacy faxed requesting the following refill. Pending Prescriptions Disp Refills ORENCIA 125 MG/ML SUBCUTANEOUS SYRINGE 12 Syringe 0 Sig: INJECT ONE SYRINGE (125 MG) SUBCUTANEOUSLY EVERY WEEK. REFRIGERATE. ALLOW TO WARM TO ROOM TEMPERATURE PRIOR TO ADMINISTRATION. ILAN: Yes Patient last appointment: 09/06/2017 Next Appointment: 12/22/2017 Patient Phone numbers: [phone] (home) Request is for script(s) to be escript to pharmacy. Lucian Cartagena CMA Allergies As of Date: 11/10/2017 Noted Allergy Reaction GLUTEN 10/06/2015 14 - Other: See Comments Comments: Upset Stomach; Intolerance SEPTRA (SULFAMETHOXAZOLE-TRIMETHO*10/06/2015 11 - Vomiting 14 - Other: See Comments Comments: Septra DS: Nausea SULFA (SULFONAMIDE ANTIBIOTICS) 08/16/2005 14 - Other: See Comments Comments: Patient Unsure. Date Reviewed: 09/17/2017 Reviewed by: Dandy (Rn) BELEN Herrera - Fully Assessed Reason for Visit: Refill Request [94] Order(s):ORENCIA 125 mg/mL syrgINJECT ONE SYRINGE (125 MG) SUBCUTANEOUSLY EVERY WEEK. REFRIGERATE. ALLOW TO WARM TO ROOM TEMPERATURE PRIOR TO ADMINISTRATION.Disp: 12 SyringeRfl: 0 Prescriptions as of 11/10/2017 Sig: ORENCIA 125 MG/ML SUBCUTANEOU* INJECT ONE SYRINGE (125 MG) S* LEFLUNOMIDE 10 MG TABLET TAKE 1 TABLET BY MOUTH ONCE D* SIMBRINZA 1 %-0.2 % EYE DROPS* USE 1 DROP IN EYES TWICE DAVIDA* CELECOXIB 200 MG CAPSULE TAKE ONE CAPSULE BY MOUTH CLIFTON* AMOXICILLIN 875 MG-POTASSIUM * Take 1 tablet by mouth twice * CYCLOSPORINE 0.05 % EYE DROPS Use in eyes. TIMOLOL MALEATE 0.5 % EYE FLOWER* 1 DROP EVERY MORNING INTO RIG* LUMIGAN 0.01 % EYE DROPS Use 1 Drop in the right eye d* OMEGA-3 ACID ETHYL ESTERS 1 G* Take 2 capsules by mouth twic* ABATACEPT 125 MG/ML SUBCUTANE* Inject 125 mL subcutaneously * CALCIUM CARBONATE 600 MG (1,5* Take 2 tablets by mouth once * BLOOD SUGAR DIAGNOSTIC STRIPS 10 Each once daily. Use as in* LEVOTHYROXINE 112 MCG TABLET Take 112 mcg by mouth once da* PEN NEEDLE, DIABETIC 32 GAUGE* Inject 4 Units subcutaneously* INSULIN ASPART U-100 100 UNI* Subcutaneous 4 times a day - * LOSARTAN 25 MG TABLET Take 25 mg by mouth once davida* MILK THISTLE ORAL Take 300 mg by mouth. COMPOUNDED PRESCRIPTION Flax seed oil 1000mg ASCORBIC ACID (VITAMIN C) 1,0* Take 1,000 mg by mouth once d* SIMVASTATIN 5 MG TABLET Take 5 mg by mouth daily at b* CHOLECALCIFEROL (VITAMIN D3) * Take by mouth. CYANOCOBALAMIN (VIT B-12) 1,0* Take 1,000 mcg by mouth once * Problem List As Of Date 11/10/2017 Noted Resolved Falls [W19.XXXA] INVALID FOR* DM (diabetes mellitus) [E11.9] INVALID FOR* SLE exacerbation [M32.9] INVALID FOR* Positive cardiolipin antibodies [R76.8] INVALID FOR* Sjogren's syndrome [M35.00] INVALID FOR* Sleep difficulties [G47.9] INVALID FOR* Residual stage of angle-closure glaucoma, bilat*INVALID FOR*01/17/2017 Rheumatoid arthritis (HCC) [M06.9] Osteoporosis [M81.0] Osteoarthritis of hip [M16.9] Degenerative joint disease of shoulder region [* More... Follow-up examination after eye surgery [Z09] INVALID FOR*06/09/2016 Dry eye syndrome [H04.129] INVALID FOR* Pseudophakia, left eye [Z96.1] INVALID FOR* Residual stage of angle-closure glaucoma of bot*INVALID FOR* Closed Colles' fracture of right radius [S52.53*INVALID FOR* Rheumatoid arthritis involving multiple sites w* Chronic pain [G89.29] INVALID FOR* Prescriptions ordered this encounter Disp Refills Start End ORENCIA 125 MG/ML SUBCUTANEOUS SYRIN* 12 S* 0 11/10/2017 02/08/2018 Sig: INJECT ONE SYRINGE (125 MG) SUBCUTANEOUSLY EVERY WEEK. REFRIGERATE. ALLOW TO WARM TO ROOM TEMPERATURE PRIOR TO ADMINISTRATION. Medications Discontinued During This Encounter ORENCIA 125 mg/mL syrg 12 S* 0 07/13/2017 11/10/2017 Sig: INJECT 1 SYRINGE SUBCUTANEOUSLY ONCE EVERY WEEK Disc: Reason for discontinue is not on file. Encounter Status:Closed by JASVIR BOYD MD on 11/10/17 THYROID Observed: 11/01/2017 Status: F Source: [place] 7:[address] [facility] REPOSITORY [facility] Services [address] [address] Thyroid MR#: [id number] Acct: [id number] Name: CHELSEA NAIK Rep #: [id number] : 1960 F 56 From: Rajeev Farias DO PCP: Karin Segura DO Status: REG CLI Study: Thyroid Date of Exam: 11/01/17 Exam# [id number] Ordering Dr: Karin Segura DO STUDY: THYROID ULTRASOUND REASON FOR EXAM: [...] isoechoic nodule with hypoechoic rim in the medial mid thyroid. LEFT LOBE: The left lobe of the thyroid gland measures 4.2 x 1.6 x 0.9 cm. There is a homogeneous echotexture. There is a 0.4 x 0.4 x 0.2 cm hypodensity in the lower pole. ISTHMUS: The isthmus measures 0.3 cm. The regional lymph nodes are normal. US/Thyroid IMPRESSION: No interval change. Electronically Signed: Rajeev Farias DO at 16:25 EDT Tel [phone], Service support , CC: Karin Segura DO Customer Service Engineer: Signed SCREENING MAMM (CAD), Observed: 11/01/2017 Status: F Source: [place] BIL[place] 7:31 AM [facility] REPOSIT[facility] Imaging Services [address] [place] [address] SCREENING MAMM (CAD), BILAT MR#: [id number] Acct: [id number] Name: CHELSEA NAIK Rep #: [id number] : 1960 F 56 From: Chris Bullock MD PCP: Karin Segura DO Status: REG CLI Study: SCREENING MAMM (CAD), BILAT Date of Exam: 11/01/17 Exam# [id number] Ordering Dr: Karin Segura DO MAMMOGRAPHY - BILATERAL SCREENING 3-D DALE SYNTHESIS REASON FOR EXAM: Female, 56 years old. Bilateral Screening 3-D tomosynthesis PERTINENT HISTORY: No significant family history. TECHNIQUE: 2-D mammograms and 3-D Dale synthesis of the breast (s) were performed. CAD was performed. COMPARISON: 10/29/2016 FINDINGS: The breast composition is composed of scattered fibroglandular density. Scattered benign mostly vascular calcifications are seen. No new finding of dense spiculated masses, abnormal microcalcification cluster, dominant mass or architectural distortion is identified. There is no adenopathy, skin thickening or nipple retraction. There has been no significant change since the prior study. No change tiny metal biopsy clip right breast posteriorly noted with adjacent coarse benign appearing dystrophic calcifications. HPBI/SCREENING MAMM (CAD), BILAT IMPRESSION: No mammographic signs of malignancy. Routine yearly mammograms recommended. ASSESSMENT CATEGORY: BIRADS Category 2: Benign. A [...] Tel , Service support , CC: Karin Segura DO Customer Service Engineer: Signed STRESS REPORT Observed: 10/26/2017 Status: F Source: [place] 9:20 AM [facility] REPOSITORY [facility] Services [address] [place] [address] MR#: [id number] Acct: [id number] Name: CHELSEA NAIK Rep #: [id number] : 1960 56 From: Romel Martinez MD Primary Care: DO,Karin Status: REG CLI Ordering Dr: Sex: F C Stress Test Report Pharmacologic myocardial perfusion stress test. 56-year-old lady with a history of chest pain. Stress protocol: Resting EKG demonstrates sinus rhythm with a rate of 63 bpm normal intervals and noted resting blood pressure is 114/68 mmHg. 0.4 mg of regadenoson was infused per usual protocol followed by rapid intravenous saline flush injection. Continuous EKG monitoring was performed. The maximum heart rate attained was 88 bpm which was 53% maximum predicted heart rate maximum workload attained was 1 metabolic equivalent. At rest there were no ST or T-wave changes noted suggest abnormal flow reserve at peak infusion no ST or T- wave changes were noted suggest abnormal flow reserve. No clinical angina was noted. The resting [...] tracer noted in all areas of the myocardium. The resting images similarly demonstrate normal uptake of tracer noted in all areas of myocardium. No areas of reversibility are noted suggest ischemia no previous infarct is noted. Gated SPECT analysis: The gated ejection fraction is over 80%. Conclusion: Normal pharmacologic myocardial perfusion stress test. 10/26/17919 <Electronically signed by Romel Martinez MD> Date Romel Martinez MD CC: Karin Date Dictated: 10/26/17913 Date Transcribed: 10/26/17913 Customer Service Engineer: [place] Signed OBSOLETE Observed: 09/28/2017 Status: COMPLETED Source: [place] 12:00 AM [facility] RE[facility] Refill (AG[facility]HWN) CHELSEA NAIK ([id number]) 1960 F Date Time Provider Department 09/28/17 OLIVERJASVIRWMartínez During your visit today, we recorded the following information about you: Lucian Cartagena CMA 09/28/2017 10:08 AM Signed Pharmacy faxed requesting the following refill. Pending Prescriptions Disp Refills LEFLUNOMIDE 10 MG TABLET 90 tablet 1 Sig: TAKE 1 TABLET BY MOUTH ONCE DAILY. INDICATIONS: RHEUMATOID ARTHRITIS ILAN: Yes Patient last appointment: 09/06/2017 Next Appointment: 12/22/2017 Patient Phone numbers: [phone] (home) Request is for script(s) to be escript to pharmacy. Lucian Cartagena CMA Allergies As of Date: 09/28/2017 Noted Allergy Reaction GLUTEN 10/06/2015 14 - Other: See Comments Comments: Upset Stomach; Intolerance SEPTRA (SULFAMETHOXAZOLE-TRIMETHO*10/06/2015 11 - Vomiting 14 - Other: See Comments Comments: Septra DS: Nausea SULFA (SULFONAMIDE ANTIBIOTICS) 08/16/2005 14 - Other: See Comments Comments: Patient Unsure. Date Reviewed: 09/17/2017 Reviewed by: Dandy (Rn) BELEN Herrera - Fully Assessed Reason for Visit: Refill Request [94] Order(s):leflunomide (ARAVA) 10 mg tabletTAKE 1 TABLET BY MOUTH ONCE DAILY. INDICATIONS: RHEUMATOID ARTHRITISDisp: 90 tabletRfl: 1 Prescriptions as of 09/28/2017 Sig: LEFLUNOMIDE 10 MG TABLET TAKE 1 TABLET BY MOUTH ONCE D* TRAMADOL 50 MG TABLET Take 1-2 tablets by mouth catherine* SIMBRINZA 1 %-0.2 % EYE DROPS* USE 1 DROP IN EYES TWICE DAVIDA* CELECOXIB 200 MG CAPSULE TAKE ONE CAPSULE BY MOUTH CLIFTON* ORENCIA 125 MG/ML SUBCUTANEOU* INJECT 1 SYRINGE SUBCUTANEOUS* AMOXICILLIN 875 MG-POTASSIUM * Take 1 tablet by mouth twice * CYCLOSPORINE 0.05 % EYE DROPS Use in eyes. TIMOLOL MALEATE 0.5 % EYE FLOWER* 1 DROP EVERY MORNING INTO RIG* LUMIGAN 0.01 % EYE DROPS Use 1 Drop in the right eye d* OMEGA-3 ACID ETHYL ESTERS 1 G* Take 2 capsules by mouth twic* ABATACEPT 125 MG/ML SUBCUTANE* Inject 125 mL subcutaneously * CALCIUM CARBONATE 600 MG (1,5* Take 2 tablets by mouth once * BLOOD SUGAR DIAGNOSTIC STRIPS 10 Each once daily. Use as in* LEVOTHYROXINE 112 MCG TABLET Take 112 mcg by mouth once da* PEN NEEDLE, DIABETIC 32 GAUGE* Inject 4 Units subcutaneously* INSULIN ASPART U-100 100 UNI* Subcutaneous 4 times a day - * LOSARTAN 25 MG TABLET Take 25 mg by mouth once davida* MILK THISTLE ORAL Take 300 mg by mouth. COMPOUNDED PRESCRIPTION Flax seed oil 1000mg ASCORBIC ACID (VITAMIN C) 1,0* Take 1,000 mg by mouth once d* SIMVASTATIN 5 MG TABLET Take 5 mg by mouth daily at b* CHOLECALCIFEROL (VITAMIN D3) * Take by mouth. CYANOCOBALAMIN (VIT B-12) 1,0* Take 1,000 mcg by mouth once * Problem List As Of Date 09/28/2017 Noted Resolved Falls [W19.XXXA] INVALID FOR* DM (diabetes mellitus) [E11.9] INVALID FOR* SLE exacerbation [M32.9] INVALID FOR* Positive cardiolipin antibodies [R76.8] INVALID FOR* Sjogren's syndrome [M35.00] INVALID FOR* Sleep difficulties [G47.9] INVALID FOR* Residual stage of angle-closure glaucoma, bilat*INVALID FOR*01/17/2017 Rheumatoid arthritis (HCC) [M06.9] Osteoporosis [M81.0] Osteoarthritis of hip [M16.9] Degenerative joint disease of shoulder region [* More... Follow-up examination after eye surgery [Z09] INVALID FOR*06/09/2016 Dry eye syndrome [H04.129] INVALID FOR* Pseudophakia, left eye [Z96.1] INVALID FOR* Residual stage of angle-closure glaucoma of bot*INVALID FOR* Closed Colles' fracture of right radius [S52.53*INVALID FOR* Rheumatoid arthritis involving multiple sites w* Chronic pain [G89.29] INVALID FOR* Prescriptions ordered this encounter Disp Refills Start End LEFLUNOMIDE 10 MG TABLET 90 t* 1 09/28/2017 Sig: TAKE 1 TABLET BY MOUTH ONCE DAILY. INDICATIONS: RHEUMATOID ARTHRITIS Medications Discontinued During This Encounter leflunomide (ARAVA) 10 mg tablet 90 t* 2 12/20/2016 09/28/2017 Route: ORAL Sig: Take 1 tablet by mouth once daily. Indications: RHEUMATOID ARTHRITIS Disc: Reason for discontinue is not on file. Encounter Status:Closed by JASVIR BOYD MD on 09/28/17 ED NOTE Observed: 09/17/2017 Status: COMPLETED Source: [place] 3:07 PM [facility] REPOSITORY HNO ID: [id number] Author: Mani García (Tech) Service: Emergency Medicine Author Type: Well Shooter Type: ED Notes Filed: 09/18/2017 9:30 AM Note Text: Emergency Services: ED Call Back Questionnaire SERVICE DATE: 09/17/2017 Are you feeling better? Yes Any questions about discharge instructions and follow-up care? No Were you able to make a follow up appointment? Yes Do you have any further questions? No Is there anything that we could have done differently to improve your ED visit? No SIGNATURE: Mani García PATIENT NAME: Chelsea Naik DATE: September 18, 2017 TIME: 9:30 AM ED PROV NOTE Observed: 09/17/2017 Status: COMPLETED Source: [place] 2:46 PM [facility] REPOSITORY HNO ID: [id number] Author: Dionte Mueller MD Service: Emergency Medicine Author Type: Physician Type: ED Provider Notes Filed: 09/17/2017 2:49 PM Note Text: ED Provider Note Patient Name: Chelsea Naik SERVICE DATE: 09/17/17 History Patient presents with: Fall Musculoskeletal Problem HPI Comments: Patient presenting for evaluation secondary to left foot injury. Patient states that yesterday she suffered a mechanical fall where she twisted her left foot. She now has difficulty bearing weight on it. Pain is mild to moderate. Patient states that her tramadol has not been alleviating the pain. Patient does have a history of a somewhat recent fracture to the fifth metatarsal on that foot. PAST MEDICAL HISTORY Diagnosis Date - Acquired hypothyroidism autoimmune - Closed fracture of foot 5th metatarsal shaft left. Jack Anderson MD - Degenerative joint disease of shoulder region Left. MRI [facility]. 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 - On mcfp drug therapy - Orthostatic proteinuria intermittent. - Osteoarthritis of hip - Osteopenia - Osteoporosis - Rheumatoid arthritis involving multiple sites with positive rheumatoid factor (HCC) - Sjogren's syndrome (HCC) - Trochanteric bursitis bilateral - Type 1 diabetes mellitus (HCC) - Vitamin D deficiency - Vitiligo PAST SURGICAL HISTORY Procedure Laterality Date - EXCISION TONSIL LESIONS BILATERAL 1965 - IRIDOTOMY/IRIDECTOMY BY LASER Right 06/2008 Laser Peripheral Iridotomy (LPI) - IRIDOTOMY/IRIDECTOMY BY LASER Left 07/2009 Laser Peripheral Iridotomy (LPI) - LASIK 1996 both eyes - LIGATE FALLOPIAN TUBE 1996 Tubal ligation - PROCEDURE (SPECIFY) 06/2014 left elbow - PROCEDURE (SPECIFY) 1996 lump removed from right breast - REMV CATARACT EXTRACAP,INSERT LENS Left 06/03/16 PCIOL with Ab interno trabeculotomy OS FAMILY HISTORY Problem Relation Age of Onset - Colon Cancer Father - Diabetes Father Type II - Pulmonary embolism [OTHER] Mother Cause of - Age 41 - MS [OTHER] Paternal Uncle Cause of - Stroke Maternal Grandfather Cause of Social History Social History Main Topics - Smoking status: Never Smoker - Smokeless tobacco: Never Used - Alcohol use 1.5 oz/week 1 Glasses of Wine (5oz) per week Comment: 1-2 times a year - Drug use: No - Sexual activity: Not Asked ALLERGIES Allergen Reactions - Gluten Other: See Comments Upset Stomach; Intolerance - Septra [Sulfamethox* Vomiting, Other: See Comments Septra DS: Nausea - Sulfa (Sulfonamide * Other: See Comments Patient Unsure. Review of Systems Eyes: Negative for visual disturbance. Musculoskeletal: Left foot pain Neurological: Negative for weakness, numbness and headaches. Hematological: Does not bruise/bleed easily. Physical Exam BP 149/57 Pulse 86 Temp 97.7 Resp 16 Ht 5' 4 (1.63m) Wt 132 lb (59.9kg) SpO2 100% BMI 22.65 kg/(m2). Physical Exam Constitutional: She is oriented to person, place, and time. She appears well-developed and well-nourished. No distress. Primary Survey: Airway Patent Breath Sounds equal and bilaterally symmetric Central and peripheral pulses palpable GCS 15/15 HENT: Head: Normocephalic and atraumatic. Head is without raccoon's eyes and without Locke's sign. Right Ear: No hemotympanum. Left Ear: No hemotympanum. Nose: No nasal septal hematoma. Midface stable No malocclusion Eyes: EOM are normal. Pupils are equal, round, and reactive to light. Neck: No spinous process tenderness and no muscular tenderness present. No stepoffs Cardiovascular: Normal rate, regular rhythm, normal heart sounds and intact distal pulses. Pulmonary/Chest: Effort normal and breath sounds normal. She exhibits no tenderness. Normal chest excursion bilaterally Abdominal: Soft. She exhibits no distension. There is no tenderness. Musculoskeletal: She exhibits tenderness. No spinal tenderness or stepoffs Examination the patient's left foot shows tenderness to palpation over the first and second metatarsals with some swelling over the dorsum. Sensation normal capillary refill distally. Normal range of motion of toes. Normal PT pulses that are bilaterally symmetric. Neurological: She is alert and oriented to person, place, and time. No lateralizing motor or sensory defecits Skin: Skin is warm and dry. Psychiatric: She has a normal mood and affect. Nursing note and vitals reviewed. Diagnostic Testing ED Labs Ordered and Reviewed - No data to display Procedures Medical Decision Making / ED Course ED Course patient presented secondary to fall the foot injury. Primary and secondary surveys showed only a injury to the left foot. Radiographs show a healing fifth metatarsal fracture nothing new. Patient was encouraged to continue using her walking boot, ice and elevate, and follow up with her PCP. Encounter Diagnosis ICD-10-CM 1. Foot sprain, left, initial encounter S93.602A Plan The Patient was DISCHARGED: Counseled patient and family regarding radiology results AND suspected diagnosis AND need for follow- up. Discharged home with verbal and written instructions. They were instructed to return as needed for persistent or worsening symptoms or any new concerns. Condition at time of disposition: stable SIGNATURE: MD Dionte Giron MD 09/17/17 1449 FOOT 3V AP/LAT/OBL Observed: 09/17/2017 Status: F Source: [facility] LEFT 2:02 PM HEALTH SYSTEM REPOSITORY Performed at [facility] APPROVED BY: Ryan Pa MD EXAM TITLE: FOOT 3V AP/LAT/OBL LEFT DATE: 09/17/2017 13:51 COMPARISON: None. CLINICAL INDICATION/HISTORY: Status post fall, left foot pain, history of remote fracture TECHNIQUE: AP, lateral and oblique views of the left foot FINDINGS: There is no acute bony abnormality identified. There is an old healed fracture of the mid shaft of the fifth metatarsal. No dislocation, stress related change or significant arthrosis. Normal soft tissues. IMPRESSION: No acute bony abnormality. Old healed fracture of the fifth metatarsal shaft. ED NOTE Observed: 09/17/2017 Status: COMPLETED Source: [place] 1:58 PM [facility] REPOSITORY HNO ID: [id number] Author: Dandy (Rn) BELEN Herrera Service: Emergency Medicine Author Type: Registered Nurse Type: ED Notes Filed: 09/17/2017 2:01 PM Note Text: Pt c/o left foot pain after tripping on dog and twisting it last night. Denies LOC, neck and back pain. No obvious swelling or deformity noted. Ice pack given. HEMOGRAM/DIFF Collected: 09/06/2017 Status: F Source: [facility] 2:00 PM HEALTH SYSTEM REPOSITORY TYPE CODE TESTS RESULT OUT OF REFERENCE UNITS RANGE LAB WBC(LOINC) 3.98-10.04 thou/cmm WBC 4.19 LAB RBC(LOINC) 3.93-5.22 mil/cmm RBC 4.04 LAB HGB(LOINC) 11.2-15.7 g/dL Hgb 13.0 LAB HCT(LOINC) 34.1-44.9 % Hct 38.8 LAB MCV(LOINC) 79.4-94.8 fl MCV High 96.0 LAB MCH(LOINC) 25.6-32.2 pg MCH 32.2 LAB MCHC(LOINC 31.6-34.8 % ) MCHC 33.5 LAB RDW(LOINC) 11.7-14.4 % RDW 12.5 LAB RDWSD(LOIN 36.4-46.3 fl C) RDW SD 43.8 LAB PLT(LOINC) 182-369 thou/cmm Low Platelet 151 LAB MPV(LOINC) 9.4-12.3 fl MPV 11.0 LAB SEG(LOINC) % Seg Neutrophil 44.3 LAB IGRE(LOINC % ) Immature Grans 0.00 LAB LYMPH(LOIN % C) Lymphocyte 39.4 LAB MNO(LOINC) % Monocyte 8.4 LAB EOSIN(LOIN % C) Eosinophil 7.2 LAB BASO(LOINC % ) Basophil 0.7 LAB SEGN(LOINC 1.56-6.13 thou/cmm ) Abs. Neut 1.86 LAB IGAB(LOINC 0.00-0.05 thou/cmm ) Abs Immature Grans 0.00 LAB LYMN(LOINC 1.18-3.74 thou/cmm ) Abs. Lymph 1.65 LAB MONON(LOIN 0.27-0.70 thou/cmm C) Abs. [place] 0.35 LAB EOSN(LOINC 0.00-0.31 thou/cmm ) Abs. Eosin 0.30 LAB BASON(LOIN 0.01-0.08 thou/cmm C) Abs. Baso 0.03 Performed By: #### [id number] #### [place] [id number] COMPREHENSIVE PANEL Collected: 09/06/2017 Status: F Source: [facility] 2:00 HEALTH SYSTEM REPOSITORY TYPE CODE TESTS RESULT OUT OF REFERENCE UNITS RANGE LAB NA(LOINC) 136-145 mEq/L Sodium Blood 139 LAB K(LOINC) 3.5-5.1 mEq/L Potassium Blood 3.8 LAB CL(LOINC) 98-107 mEq/L Chloride Blood 104 LAB CO2(LOINC) 21-32 mEq/L CO2 Blood 30 LAB GLU(LOINC) 70-99 mg/dL Glucose High Blood 150 LAB BUN(LOINC) 7-18 mg/dL BUN Blood 18 LAB CREA(LOINC 0.51-0.95 mg/dL ) Creatinine Blood 0.65 LAB CA(LOINC) 8.5-10.1 mg/dL Calcium Blood 8.6 LAB ALB(LOINC) 3.4-5.0 g/dL Albumin Blood 3.8 LAB TP(LOINC) 6.4-8.2 g/dL Total Protein 6.4 LAB AST(LOINC) 9-37 U/L AST-SGOT Blood 21 LAB ALT(LOINC) 12-78 U/L ALT-SGPT Blood 30 LAB ALKP(LOINC 46-116 U/L ) Alk Phosphatase 97 LAB BILIT(LOIN 0.2-1.0 mg/dL C) Total Bilirubin 0.7 LAB ANGAP(LOIN 8-16 C) Anion Gap 9 Performed By: #### P14 #### [place] [id number] CRP Collected: 09/06/2017 Status: F Source: [facility] 2:00 PM HEALTH SYSTEM REPOSITORY TYPE CODE TESTS RESULT OUT OF RANGE REFERENCE UNITS LAB CRP3(LOINC) 0.00-0.30 mg/dL CRP < 0.29 Performed By: #### CRP3 #### [place] [address] MDRD GFR Collected: 09/06/2017 Status: F Source: [facility] 2:00 PM HEALTH SYSTEM REPOSITORY TYPE CODE TESTS RESULT OUT OF RANGE REFERENCE UNITS LAB GFRFN(LOINC >60mL/min/1.73m ) 2 eGFR >60 Result Comment: If the patient is , multiply the result by 1.210. Performed By: #### GFR #### [place] [address] SED RATE Collected: 09/06/2017 Status: F Source: [facility] 2:00 PM HEALTH SYSTEM REPOSITORY TYPE CODE TESTS RESULT OUT OF RANGE REFERENCE UNITS LAB ESR(LOINC) 0-20 mm/hr Sed Rate 5 Performed By: #### ESR #### [place] [address] PROGRESS Observed: 09/06/2017 Status: COMPLETED Source: [place] 12:05 PM [facility] REPOSITORY HNO ID: [id number] Author: Jasvir Boyd Service: (none) Author Type: Physician Type: Progress Notes Filed: 09/06/2017 12:24 PM Note Text: Subjective HPI: Chelsea Naik is a 56 year old female who presents with rheumatoid arthritis, osteoporosis , history of multiple fractures, 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 In December 2016 she was diagnosed by her oral surgeon with osteonecrosis of the jaw-on both sides of her lower jaw with concurrent infection and is on antibiotics. She's been off Orencia since April 2017 and is flaring up today. She decided to hold off on treatment for osteoporosis- she was considering Tymlos. She continues to be on leflunomide 10 mg daily. She's had increased pain-6/10 in her hands, wrists, elbow, shoulder, knee, ankles, hip. She has swelling in the hands and right wrist. Stiffness is at least 2 hours in the morning. Her oral surgeon wanted to hold off on Orencia therapy but she is flaring up and wants to go back. She had a discussion with him and he said she can go back if her pain is intolerable. She comes in today asking to go back on Orencia. 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 She's received one dose of prolia in November 2016. She did 2 doses of reclast in the past and prior to that Actonel for 3 years. In September 2015 she fell and fractured her right wrist-distal radius. She had a bone density recently September 2016 with a T score of -2.6 in the right femoral neck. There was a decline in the spine BMD but improvement in the hip BMD. She's had glaucoma in the eye and is legally blind in the left eye and has loss of peripheral vision on the right. She has difficulty driving especially at night. She's on calcium and vitamin D supplements. She is no longer taking tramadol and has been taking Celebrex 200 mg daily. In the past she had a Kenalog injection for left trochanteric bursitis which helped significantly. She wants to continue to avoid methotrexate-she did not like the way it made her feel. In June 26 2014 she took a fall on ice and fractured her left elbow-distal humerus and proximal ulna requiring surgery. She had a bone density recently which showed osteoporosis in the femoral neck with a T score of -2.9 in the right femoral neck in August 2014. She had discontinued methotrexate in the past and is doing well on monotherapy. She went on a gluten-free diet as both her kids are diagnosed with celiac. Testing on her was negative. She continues to be off Plaquenil. She stopped Actonel since May of 2012 as she had trouble swallowing. PAST MEDICAL HISTORY Diagnosis Date - Acquired hypothyroidism autoimmune - Closed fracture of foot 5th metatarsal shaft left. Jack Anderson MD - Degenerative joint disease of shoulder region Left. [facility]. 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 - On predatory animal exterminator drug therapy - Orthostatic proteinuria intermittent. - Osteoarthritis of hip - Osteopenia - Osteoporosis - Rheumatoid arthritis involving multiple sites with positive rheumatoid factor (HCC) - Sjogren's syndrome (HCC) - Trochanteric bursitis bilateral - Type 1 diabetes mellitus (HCC) - Vitamin D deficiency - Vitiligo PAST SURGICAL HISTORY Procedure Laterality Date - EXCISION TONSIL LESIONS BILATERAL 1965 - IRIDOTOMY/IRIDECTOMY BY LASER Right 06/2008 Laser Peripheral Iridotomy (LPI) - IRIDOTOMY/IRIDECTOMY BY LASER Left 07/2009 Laser Peripheral Iridotomy (LPI) - LASIK 1996 both eyes - LIGATE FALLOPIAN TUBE 1996 Tubal ligation - PROCEDURE (SPECIFY) 06/2014 left elbow - PROCEDURE (SPECIFY) 1996 lump removed from right breast - REMV CATARACT EXTRACAP,INSERT LENS Left 06/03/16 PCIOL with Ab interno trabeculotomy OS Health Maintenance Procedures HBA1C due on 11/14/1964 TETANUS due on 11/14/1970 URINE ALBUMIN CREATININE RATIO due on 1975 LDL due on 1975 DIABETIC FOOT EXAM due on 1975 ONE PNEUMOVAX PRIOR TO AGE 64 due on 1975 PAP EVERY 5 YEARS due on 11/14/1989 HPV EVERY 5 YEARS due on 11/14/1989 MAMMOGRAM due on 1999 HEPATITIS C SCREENING due on 2003 COLORECTAL CANCER SCREENING,SEE MODIFIER due on 11/14/2009 Discussed health maintenance, including regular aerobic exercise, low fat diet, and periodic exams. Health Maintenance Immunizations Given Immunizations: Immunization History Administered Date(s) Administered Influenza Seasonal Inj Age 3+ 05/07/2009 Influenza Seasonal Inj Quadrivalent Age 3+ 05/25/2017 PPD ([place]) 03/02/2006 Current Outpatient Prescriptions: traMADol (ULTRAM) 50 mg tablet Take 1-2 tablets by mouth daily, as needed. SIMBRINZA 1-0.2 % Ophth Susp USE 1 DROP IN EYES TWICE DAILY. celecoxib (CELEBREX) 200 mg capsule TAKE ONE CAPSULE BY MOUTH EVERY DAY amoxicillin-clavulanic acid (AUGMENTIN) 875-125 mg per tablet Take 1 tablet by mouth twice daily. cycloSPORINE 0.05 % drop Use in eyes. timolol maleate (TIMOPTIC) 0.5 % ophthalmic solution 1 DROP EVERY MORNING INTO RIGHT EYE AND 1 DROP TWICE A DAY INTO LEFT EYE LUMIGAN 0.01 % drop ophthalmic drops Use 1 Drop in the right eye daily at bedtime. leflunomide (ARAVA) 10 mg tablet Take 1 tablet by mouth once daily. Indications: RHEUMATOID ARTHRITIS omega-3 acid ethyl esters (LOVAZA) 1 gram capsule Take 2 capsules by mouth twice daily. calcium carbonate 600 mg-cholecalciferol 400 units 600 mg(1,500mg) -400 unit tab Take 2 tablets by mouth once daily. blood sugar diagnostic test strip 10 Each once daily. Use as instructed levothyroxine (SYNTHROID) 112 mcg tablet Take 112 mcg by mouth once daily. Insulin [place], Disposable, 32 gauge x 5/32 ndle Inject 4 Units subcutaneously once daily. insulin aspart (NOVOLOG) 100 unit/mL Soln Subcutaneous 4 times a day - pt adjusts own sliding scale per blood glucose levels losartan 25 mg tablet Take 25 mg by mouth once daily. MILK THISTLE ORAL Take 300 mg by mouth. COMPOUNDED PRESCRIPTION Flax seed oil 1000mg Ascorbic Acid (VITAMIN C) 1,000 mg tablet Take 1,000 mg by mouth once daily. simvastatin 5 mg tablet Take 5 mg by mouth daily at bedtime. Cholecalciferol, Vitamin D3, (VITAMIN D-3) 2,000 unit cap Take by mouth. cyanocobalamin (VITAMIN B-12) 1,000 mcg Tab Take 1,000 mcg by mouth once daily. ORENCIA 125 mg/mL syrg INJECT 1 SYRINGE SUBCUTANEOUSLY ONCE EVERY WEEK abatacept (ORENCIA) 125 mg/mL syrg Inject 125 mL subcutaneously once each week. Indications: RHEUMATOID ARTHRITIS No current facility-administered medications for this visit. ALLERGIES Allergen Reactions - Gluten Other: See Comments Upset Stomach; Intolerance - Septra [Sulfamethox* Vomiting, Other: See Comments Septra DS: Nausea - Sulfa (Sulfonamide * Other: See Comments Patient Unsure. FAMILY HISTORY Problem Relation Age of Onset - Colon Cancer Father - Diabetes Father Type II - Pulmonary embolism [OTHER] Mother Cause of - Age 41 - MS [OTHER] Paternal Uncle Cause of - Stroke Maternal Grandfather Cause of Social History Marital status: Spouse name: Years of education: Number of children: Occupational History Occupation Employer [employer] Social History Main Topics Smoking status: Never Smoker Smokeless status: Never Used Alcohol use: Yes 1.5 oz/week 1 Glasses of Wine (5oz) per week Comment: 1-2 times a year Drug use: No Other Topics Concern Special Diet Not Asked Comment:Good diet Exercise Not Asked Comment:Excercises 5 or more days/wk History Review: I have reviewed and modified as needed, the following during this visit: Allergies, Past Medical History, Past Surgical History, Past Family History, Past Social History. Review of Systems CONSTITUTIONAL: Negative for weight gain, weight loss, fatigue, weakness, fever, falls EYES: Negative for Eye Pain, Eye Redness, Reduced Vision, Diplopia, Blurred Vision, Dryness, Feels like something in Eye(s), Eye Itching NOSE, THROAT: Negative for frequent or significant headaches, No changes in hearing or vision, no nose bleeds or other nasal problems NECK: Negative for lumps, goiter, pain and significant neck swelling RESPIRATORY: Negative for cough, hemoptysis, wheezing or shortness of breath CARDIOVASCULAR: No chest pain, arrhythmia, palpitations, heart murmurs GI: No nausea, vomiting, or diarrhea : No history of dysuria, frequency or incontinence Kidney disease/stones: no MUSCULOSKELETAL: Negative for morning stiffness,muscle weakness, back pain positive for joint pain, positive for joint swelling SKIN: Negative for changes in the skin redness, easily bruising, pruritus, skin rash, malar rash, hives, sun sensitivity, tightness, nodules/bumps, hair loss, skin lesion, ulcerations, color changles of hands or feet in the cold PSYCH: Negative for excessive worries, anxious, easily losing temper, feeling depressed, feeling agitated, diffuclty falling asleep, diffuclty staying asleep HEMATOLOGY/LYMPHOLOGY Negative for prolonged bleeding, bruising easily or swollen nodes ENDOCRINE: Negative for cold or heat intolerance, polyuria, polydipsia and goiter NEURO: Negative for headache, dizziness, syncope, muscle spasms, tingling, loss of consciousness, sensitivity or pain of hands and/or feet, memory loss, night sweats BP 132/74 Pulse 74 Temp 36.4 ?C (97.6 ?F) Ht 162.6 cm (5' 4) Wt 60.8 kg (134 lb) BMI 23 kg/m2 Physical Exam GENERAL: Well appearing, alert, comfortable, in no acute distress, well-hydrated, well nourished. HEENT: Negative for external ears normal. Canals are clear. Both TMs visualized and are normal. Eye Exam normal. External nose normal, no nasal ulcer or throat ulcer. NECK: NECK Supple, no adenopathy; thyroid symmetric, normal size, no bruits CARDIAC: regular rate and rhythm, No murmur asculated. and Equal peripheral pulses RESPIRATORY: Lungs clear to auscultation. No wheezing, rhonchi, rales VASCULAR: RRR without murmur, gallop, or rubs. No ectopy. ABDOMEN: Soft, non tender. BS active. No masses or organomegaly. LYMPHATIC: Negative for adenopathy in the neck, axillae, groin, supraclavicular and auricular. NEURO: Motor and sensory exam normal MOTOR: Normal; including tone, gait, stressed gait, power and coordination. SKIN: Negative for alopecia, skin rash, malar rash, skin lesion, skin ulcer, pits, thickening, color changes, telangiectasias, nail changes, nail ridging, nail pitting, onycholysis MUSCULOSKELETAL: Full as an tenderness right wrist Fullness and tenderness right second third MCPs Tenderness left second third MCPs Tenderness both knees Tenderness both ankles Tenderness of MTPs bilaterally Tenderness trochanteric bursa bilaterally Serology: : RF: +, CCP: +, MITCHELL: 1:640, DNA: +, Repeat double-stranded DNA negative Lab Results: February 2017 CMP normal January 2017 ESR and CRP normal CBC normal Radiology Results: The full radiology report is copied below. EMG nerve conduction test February 2017 Right common peroneal mononeuropathy October 2016 X-ray right knee Normal X-ray of the hips 1. ?Minimal joint space narrowing involving the left hip. ? 2. ?Otherwise negative pelvis, and negative right and left hips. Bone density scan in September 2016 T score -2.6 right femoral neck Assessment (M05.79) Rheumatoid arthritis involving multiple sites with positive rheumatoid factor (HCC) (primary encounter diagnosis) (G89.4) Chronic pain syndrome (M19.011, M19.012) Primary osteoarthritis of both shoulders (M16.0) Primary osteoarthritis of both hips (H04.123) Dry eye syndrome of both eyes (M81.0) Osteoporosis, unspecified osteoporosis type, unspecified pathological fracture presence 56-year-old with #1 sero positive rheumatoid arthritis with moderate synovitis today- onleflunomide 10 mg daily-no Orencia since April 2017 with increase in symptoms. Rheumatoid arthritis flaring up. Was well controlled with Orencia in the past. #2 severe osteoporosis-recent bone density with a T score of -2.6 in the femoral neck, recent fracture right distal radius September 2016. history of fracture left distal humerus/proximal ulnar fracture in June 2014. On calcium and vitamin D supplementation. History of Actonel use in the past has been discontinued in 2011 because of GI intolerance-received first dose of Reclast in October 2014 and second dose October 2015. Has done one dose of prolia November 2016. Currently not on treatment for osteoporosis-was recommended Tymlos but wants to hold off since recently diagnosed with osteonecrosis of the jaw #3 recent right distal radius fracture, prior to that had left distal femur/proximal ulnar fracture post surgery-continues to have pain from past fractures #4 left shoulder impingement-improved with exercise and injection. Also has acromioclavicular joint arthrosis on the left and on MRI #5 history of left trochanteric bursitis with mild degenerative arthritis in the hip-improved with Kenalog injection in the past-mild symptoms today. Recent imaging continues to show mild degenerative arthritis left hip #6 type 1 diabetes on insulin, hypertension, hypothyroidism, vitiligo, depression, glaucoma, intermittent proteinuria #7 family history of celiac disease-both get her diagnosis celiac. She has gone on a gluten-free diet with overall improvement in generalized pain #8 history of TNF induced SLE - recent double-stranded DNA negative. History of positive anti-Cardiolipin antibodies and leukopenia. On aspirin. Plaquenil discontinued without problems #9 mild lumbar spondylosis-symptoms improved-intermittent symptoms #10sicca symptoms, glaucoma with loss of vision left eye and some symptoms on the right-has seen bar turner #11 recent upper back pain and long standing chronic low back pain-continues to have symptoms mostly in the lower back. Upper back pain resolved. Imaging through PCP did not show any fractures. History of degenerative arthritis-continues to be symptomatic #12 right common peroneal mononeuropathy on EMG nerve conduction test in February 2017-continues to have symptoms #13 osteonecrosis of the jaw with concurrent infection-has seen no real surgeon. Symptomatic and on antibiotics since April 2017- continues to be symptomatic. Not on treatment for osteoporosis and holding Orencia Plan Rheumatoid arthritis flaring up today. She wants to go back on biologic therapy. She's discussed with her oral surgeon already. There is a risk for increased infection associated with osteonecrosis of her job but with her rheumatoid flaring up she wants to proceed with treatment Recent benefits of therapy explained Can start Orencia-can try every other week in order to minimize dose if tolerated Continue leflunomide 10 mg daily She wants to hold off on all treatment for osteoporosis-she's been recently diagnosed with osteonecrosis of the jaw. She's been on bisphosphonate therapy-around 3 years of Actonel, 2 doses of reclast in one dose of prolia so far. Continue monitoring bone density- she continues to decline further fractures may need to consider anabolic agent in the future but she wants to hold off right now Continue calcium and vitamin D Continue symptomatically treatment of sicca symptoms. Close follow-up with bar turner for glaucoma Continue bone density screening every 2 years. Celiac disease also a risk factor for osteoporosis although she has been on a gluten- free diet Continue tramadol for pain-she's been taking it daily at bedtime She's on Celebrex 200 mg daily -continue as needed Long discussion on osteoporosis treatment, rheumatoid arthritis treatment, osteonecrosis of the jaw today. During this patients visit I have spent more then 50% Face to Face time out of 40 mins in counseling regarding treatment options, medications and test results and coordinating care Plan Office Visit on 09/06/17 -CBC + DIFF -COMP METABOLIC PANEL -C-REACTIVE PROTEIN (CRP) -SED RATE CLEMENCIA Return in about 3 months (around 12/05/2017). 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 In December 2016 she was diagnosed by her oral surgeon with osteonecrosis of the jaw-on both sides of her lower jaw with concurrent infection and is on antibiotics. She's been off Orencia since April 2017 and is flaring up today. She decided to hold off on treatment for osteoporosis- she was considering Tymlos. She continues to be on leflunomide 10 mg daily. She's had increased pain-6/10 in her hands, wrists, elbow, shoulder, knee, ankles, hip. She has swelling in the hands and right wrist. Stiffness is at least 2 hours in the morning. Her oral surgeon wanted to hold off on Orencia therapy but she is flaring up and wants to go back. She had a discussion with him and he said she can go back if her pain is intolerable. She comes in today asking to go back on Orencia. 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 She's received one dose of prolia in November 2016. She did 2 doses of reclast in the past and prior to that Actonel for 3 years. In September 2015 she fell and fractured her right wrist-distal radius. She had a bone density recently September 2016 with a T score of -2.6 in the right femoral neck. There was a decline in the spine BMD but improvement in the hip BMD. She's had glaucoma in the eye and is legally blind in the left eye and has loss of peripheral vision on the right. She has difficulty driving especially at night. She's on calcium and vitamin D supplements. She is no longer taking tramadol and has been taking Celebrex 200 mg daily. In the past she had a Kenalog injection for left trochanteric bursitis which helped significantly. She wants to continue to avoid methotrexate- she did not like the way it made her feel. In June 26 2014 she took a fall on ice and fractured her left elbow-distal humerus and proximal ulna requiring surgery. She had a bone density recently which showed osteoporosis in the femoral neck with a T score of -2.9 in the right femoral neck in August 2014. She had discontinued methotrexate in the past and is doing well on monotherapy. She went on a gluten-free diet as both her kids are diagnosed with celiac. Testing on her was negative. She continues to be off Plaquenil. She stopped Actonel since May of 2012 as she had trouble swallowing. PAST MEDICAL HISTORY Diagnosis Date - Acquired hypothyroidism autoimmune - Closed fracture of foot 5th metatarsal shaft left. Jack Anderson MD - Degenerative joint disease of shoulder region Left. MRI [facility]. 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 - On [facility] drug therapy - Orthostatic proteinuria intermittent. - Osteoarthritis of hip - Osteopenia - Osteoporosis - Rheumatoid arthritis involving multiple sites with positive rheumatoid factor (HCC) - Sjogren's syndrome (HCC) - Trochanteric bursitis bilateral - Type 1 diabetes mellitus (HCC) - Vitamin D deficiency - Vitiligo PAST SURGICAL HISTORY Procedure Laterality Date - EXCISION TONSIL LESIONS BILATERAL 1965 - IRIDOTOMY/IRIDECTOMY BY LASER Right 06/2008 Laser Peripheral Iridotomy (LPI) - IRIDOTOMY/IRIDECTOMY BY LASER Left 07/2009 Laser Peripheral Iridotomy (LPI) - LASIK 1996 both eyes - LIGATE FALLOPIAN TUBE 1996 Tubal ligation - PROCEDURE (SPECIFY) 06/2014 left elbow - PROCEDURE (SPECIFY) 1996 lump removed from right breast - REMV CATARACT EXTRACAP,INSERT LENS Left 06/03/16 PCIOL with Ab interno trabeculotomy OS Health Maintenance Procedures HBA1C due on 11/14/1964 TETANUS due on 11/14/1970 URINE ALBUMIN CREATININE RATIO due on 1975 LDL due on 1975 DIABETIC FOOT EXAM due on 1975 ONE PNEUMOVAX PRIOR TO AGE 65 due on 1975 PAP EVERY 5 YEARS due on 11/14/1989 HPV EVERY 5 YEARS due on 11/14/1989 MAMMOGRAM due on 1999 HEPATITIS C SCREENING due on 2003 COLORECTAL CANCER SCREENING,SEE MODIFIER due on 11/14/2009 Discussed health maintenance, including regular aerobic exercise, low fat diet, and periodic exams. Health Maintenance Immunizations Given Immunizations: Immunization History Administered Date(s) Administered Influenza Seasonal Inj Age 3+ 05/07/2009 Influenza Seasonal Inj Quadrivalent Age 3+ 05/25/2017 PPD ([place]) 03/02/2006 Current Outpatient Prescriptions: traMADol (ULTRAM) 50 mg tablet Take 1-2 tablets by mouth daily, as needed. SIMBRINZA 1-0.2 % Ophth Susp USE 1 DROP IN EYES TWICE DAILY. celecoxib (CELEBREX) 200 mg capsule TAKE ONE CAPSULE BY MOUTH EVERY DAY amoxicillin-clavulanic acid (AUGMENTIN) 875-125 mg per tablet Take 1 tablet by mouth twice daily. cycloSPORINE 0.05 % drop Use in eyes. timolol maleate (TIMOPTIC) 0.5 % ophthalmic solution 1 DROP EVERY MORNING INTO RIGHT EYE AND 1 DROP TWICE A DAY INTO LEFT EYE LUMIGAN 0.01 % drop ophthalmic drops Use 1 Drop in the right eye daily at bedtime. leflunomide (ARAVA) 10 mg tablet Take 1 tablet by mouth once daily. Indications: RHEUMATOID ARTHRITIS omega-3 acid ethyl esters (LOVAZA) 1 gram capsule Take 2 capsules by mouth twice daily. calcium carbonate 600 mg-cholecalciferol 400 units 600 mg(1,500mg) -400 unit tab Take 2 tablets by mouth once daily. blood sugar diagnostic test strip 10 Each once daily. Use as instructed levothyroxine (SYNTHROID) 112 mcg tablet Take 112 mcg by mouth once daily. Insulin [place], Disposable, 32 gauge x 5/32ANDquot; ndle Inject 4 Units subcutaneously once daily. insulin aspart (NOVOLOG) 100 unit/mL Soln Subcutaneous 4 times a day - pt adjusts own sliding scale per blood glucose levels losartan 25 mg tablet Take 25 mg by mouth once daily. MILK THISTLE ORAL Take 300 mg by mouth. COMPOUNDED PRESCRIPTION Flax seed oil 1000mg Ascorbic Acid (VITAMIN C) 1,000 mg tablet Take 1,000 mg by mouth once daily. simvastatin 5 mg tablet Take 5 mg by mouth daily at bedtime. Cholecalciferol, Vitamin D3, (VITAMIN D-3) 2,000 unit cap Take by mouth. cyanocobalamin (VITAMIN B-12) 1,000 mcg Tab Take 1,000 mcg by mouth once daily. ORENCIA 125 mg/mL syrg INJECT 1 SYRINGE SUBCUTANEOUSLY ONCE EVERY WEEK abatacept (ORENCIA) 125 mg/mL syrg Inject 125 mL subcutaneously once each week. Indications: RHEUMATOID ARTHRITIS No current facility-administered medications for this visit. ALLERGIES Allergen Reactions - Gluten Other: See Comments Upset Stomach; Intolerance - Septra [Sulfamethox* Vomiting, Other: See Comments Septra DS: Nausea - Sulfa (Sulfonamide * Other: See Comments Patient Unsure. FAMILY HISTORY Problem Relation Age of Onset - Colon Cancer Father - Diabetes Father Type II - Pulmonary embolism [OTHER] Mother Cause of - Age 41 - MS [OTHER] Paternal Uncle Cause of - Stroke Maternal Grandfather Cause of Social History Marital status: Spouse name: Years of education: Number of children: Occupational History Occupation Employer [employer] Social History Main Topics Smoking status: Never Smoker Smokeless status: Never Used Alcohol use: Yes 1.5 oz/week 1 Glasses of Wine (5oz) per week Comment: 1-2 times a year Drug use: No Other Topics Concern Special Diet Not Asked Comment:Good diet Exercise Not Asked Comment:Excercises 5 or more days/wk History Review: I have reviewed and modified as needed, the following during this visit: Allergies, Past Medical History, Past Surgical History, Past Family History, Past Social History. Review of Systems CONSTITUTIONAL: Negative for weight gain, weight loss, fatigue, weakness, fever, falls EYES: Negative for Eye Pain, Eye Redness, Reduced Vision, Diplopia, Blurred Vision, Dryness, Feels like something in Eye(s), Eye Itching NOSE, THROAT: Negative for frequent or significant headaches, No changes in hearing or vision, no nose bleeds or other nasal problems NECK: Negative for lumps, goiter, pain and significant neck swelling RESPIRATORY: Negative for cough, hemoptysis, wheezing or shortness of breath CARDIOVASCULAR: No chest pain, arrhythmia, palpitations, heart murmurs GI: No nausea, vomiting, or diarrhea : No history of dysuria, frequency or incontinence Kidney disease/stones: no MUSCULOSKELETAL: Negative for morning stiffness,muscle weakness, back pain positive for joint pain, positive for joint swelling SKIN: Negative for changes in the skin redness, easily bruising, pruritus, skin rash, malar rash, hives, sun sensitivity, tightness, nodules/bumps, hair loss, skin lesion, ulcerations, color changles of hands or feet in the cold PSYCH: Negative for excessive worries, anxious, easily losing temper, feeling depressed, feeling agitated, diffuclty falling asleep, diffuclty staying asleep HEMATOLOGY/LYMPHOLOGY Negative for prolonged bleeding, bruising easily or swollen nodes ENDOCRINE: Negative for cold or heat intolerance, polyuria, polydipsia and goiter NEURO: Negative for headache, dizziness, syncope, muscle spasms, tingling, loss of consciousness, sensitivity or pain of hands and/or feet, memory loss, night sweats BP 132/74 Pulse 74 Temp 36.4 ?C (97.6 ?F) Ht 162.6 cm (5' 4ANDquot;) Wt 60.8 kg (134 lb) BMI 23 kg/m2 Physical Exam GENERAL: Well appearing, alert, comfortable, in no acute distress, well-hydrated, well nourished. HEENT: Negative for external ears normal. Canals are clear. Both TMs visualized and are normal. Eye Exam normal. External nose normal, no nasal ulcer or throat ulcer. NECK: NECK Supple, no adenopathy; thyroid symmetric, normal size, no bruits CARDIAC: regular rate and rhythm, No murmur asculated. and Equal peripheral pulses RESPIRATORY: Lungs clear to auscultation. No wheezing, rhonchi, rales VASCULAR: RRR without murmur, gallop, or rubs. No ectopy. ABDOMEN: Soft, non tender. BS active. No masses or organomegaly. LYMPHATIC: Negative for adenopathy in the neck, axillae, groin, supraclavicular and auricular. NEURO: Motor and sensory exam normal MOTOR: Normal; including tone, gait, stressed gait, power and coordination. SKIN: Negative for alopecia, skin rash, malar rash, skin lesion, skin ulcer, pits, thickening, color changes, telangiectasias, nail changes, nail ridging, nail pitting, onycholysis MUSCULOSKELETAL: Full as an tenderness right wrist Fullness and tenderness right second third MCPs Tenderness left second third MCPs Tenderness both knees Tenderness both ankles Tenderness of MTPs bilaterally Tenderness trochanteric bursa bilaterally Serology: : RF: +, CCP: +, MITCHELL: 1:640, DNA: +, Repeat double-stranded DNA negative Lab Results: February 2017 CMP normal January 2017 ESR and CRP normal CBC normal Radiology Results: The full radiology report is copied below. EMG nerve conduction test February 2017 Right common peroneal mononeuropathy October 2016 X-ray right knee Normal X-ray of the hips 1. ?Minimal joint space narrowing involving the left hip. ? 2. ?Otherwise negative pelvis, and negative right and left hips. Bone density scan in September 2016 T score -2.6 right femoral neck Assessment (M05.79) Rheumatoid arthritis involving multiple sites with positive rheumatoid factor (HCC) (primary encounter diagnosis) (G89.4) Chronic pain syndrome (M19.011, M19.012) Primary osteoarthritis of both shoulders (M16.0) Primary osteoarthritis of both hips (H04.123) Dry eye syndrome of both eyes (M81.0) Osteoporosis, unspecified osteoporosis type, unspecified pathological fracture presence 56-year-old with #1 sero positive rheumatoid arthritis with moderate synovitis today- onleflunomide 10 mg daily-no Orencia since April 2017 with increase in symptoms. Rheumatoid arthritis flaring up. Was well controlled with Orencia in the past. #2 severe osteoporosis-recent bone density with a T score of -2.6 in the femoral neck, recent fracture right distal radius September 2016. history of fracture left distal humerus/proximal ulnar fracture in June 2014. On calcium and vitamin D supplementation. History of Actonel use in the past has been discontinued in 2011 because of GI intolerance-received first dose of Reclast in October 2014 and second dose October 2015. Has done one dose of prolia November 2016. Currently not on treatment for osteoporosis-was recommended Tymlos but wants to hold off since recently diagnosed with osteonecrosis of the jaw #3 recent right distal radius fracture, prior to that had left distal femur/proximal ulnar fracture post surgery-continues to have pain from past fractures #4 left shoulder impingement-improved with exercise and injection. Also has acromioclavicular joint arthrosis on the left and on MRI #5 history of left trochanteric bursitis with mild degenerative arthritis in the hip-improved with Kenalog injection in the past-mild symptoms today. Recent imaging continues to show mild degenerative arthritis left hip #6 type 1 diabetes on insulin, hypertension, hypothyroidism, vitiligo, depression, glaucoma, intermittent proteinuria #7 family history of celiac disease-both get her diagnosis celiac. She has gone on a gluten-free diet with overall improvement in generalized pain #8 history of TNF induced SLE - recent double-stranded DNA negative. History of positive anti-Cardiolipin antibodies and leukopenia. On aspirin. Plaquenil discontinued without problems #9 mild lumbar spondylosis-symptoms improved-intermittent symptoms #10sicca symptoms, glaucoma with loss of vision left eye and some symptoms on the right-has seen bar turner #11 recent upper back pain and long standing chronic low back pain-continues to have symptoms mostly in the lower back. Upper back pain resolved. Imaging through PCP did not show any fractures. History of degenerative arthritis-continues to be symptomatic #12 right common peroneal mononeuropathy on EMG nerve conduction test in February 2017-continues to have symptoms #13 osteonecrosis of the jaw with concurrent infection-has seen no real surgeon. Symptomatic and on antibiotics since April 2017- continues to be symptomatic. Not on treatment for osteoporosis and holding Orencia Plan Rheumatoid arthritis flaring up today. She wants to go back on biologic therapy. She's discussed with her oral surgeon already. There is a risk for increased infection associated with osteonecrosis of her job but with her rheumatoid flaring up she wants to proceed with treatment Recent benefits of therapy explained Can start Orencia-can try every other week in order to minimize dose if tolerated Continue leflunomide 10 mg daily She wants to hold off on all treatment for osteoporosis-she's been recently diagnosed with osteonecrosis of the jaw. She's been on bisphosphonate therapy-around 3 years of Actonel, 2 doses of reclast in one dose of prolia so far. Continue monitoring bone density-she continues to decline further fractures may need to consider anabolic agent in the future but she wants to hold off right now Continue calcium and vitamin D Continue symptomatically treatment of sicca symptoms. Close follow-up with bar turner for glaucoma Continue bone density screening every 2 years. Celiac disease also a risk factor for osteoporosis although she has been on a gluten- free diet Continue tramadol for pain-she's been taking it daily at bedtime She's on Celebrex 200 mg daily -continue as needed Long discussion on osteoporosis treatment, rheumatoid arthritis treatment, osteonecrosis of the jaw today. During this patients visit I have spent more then 50% Face to Face time out of 40 mins in counseling regarding treatment options, medications and test results and coordinating care Plan Office Visit on 09/06/17 -CBC + DIFF -COMP METABOLIC PANEL -C-REACTIVE PROTEIN (CRP) -SED RATE WESTERGREN Return in about 3 months (around 12/05/2017). Jasvir Boyd MD Referring Provider: JASVIR BOYD [[id number]] Allergies As of Date: 09/06/2017 Noted Allergy Reaction GLUTEN 10/06/2015 14 - Other: See Comments Comments: Upset Stomach; Intolerance SEPTRA (SULFAMETHOXAZOLE-TRIMETHO*10/06/2015 11 - Vomiting 14 - Other: See Comments Comments: Septra DS: Nausea SULFA (SULFONAMIDE ANTIBIOTICS) 08/16/2005 14 - Other: See Comments Comments: Patient Unsure. Date Reviewed: 09/06/2017 Reviewed by: Jasvir Boyd - Fully Assessed Reason for Visit: Follow Up [171] Primary Visit Diagnosis:Rheumatoid arthritis involving multiple sites with positive rheumatoid factor (HCC) [M05.79] Other Visit Diagnoses:Chronic pain syndrome [G89.4] Primary osteoarthritis of both shoulders [M19.011, M19.012] Primary osteoarthritis of both hips [M16.0] Dry eye syndrome of both eyes [H04.123] Osteoporosis, unspecified osteoporosis type, unspecified pathological fracture presence [M81.0] Order(s):traMADol (ULTRAM) 50 mg tabletTake 1-2 tablets by mouth daily, as needed.Disp: 60 tabletRfl: 0 CBC + DIFF [SQCBCDIF] Order #: [id number] FUTURE COMP METABOLIC PANEL [SQCMP] Order #: [id number] FUTURE C-REACTIVE PROTEIN (CRP) [SQCRP] Order #: [id number] FUTURE SED RATE WESTERGREN [SQWSR] Order #: [id number] FUTURE Prescriptions as of 09/06/2017 Sig: TRAMADOL 50 MG TABLET Take 1-2 tablets by mouth catherine* SIMBRINZA 1 %-0.2 % EYE DROPS* USE 1 DROP IN EYES TWICE DAVIDA* CELECOXIB 200 MG CAPSULE TAKE ONE CAPSULE BY MOUTH CLIFTON* AMOXICILLIN 875 MG-POTASSIUM * Take 1 tablet by mouth twice * CYCLOSPORINE 0.05 % EYE DROPS Use in eyes. TIMOLOL MALEATE 0.5 % EYE FLOWER* 1 DROP EVERY MORNING INTO RIG* LUMIGAN 0.01 % EYE DROPS Use 1 Drop in the right eye d* LEFLUNOMIDE 10 MG TABLET Take 1 tablet by mouth once d* OMEGA-3 ACID ETHYL ESTERS 1 G* Take 2 capsules by mouth twic* CALCIUM CARBONATE 600 MG (1,5* Take 2 tablets by mouth once * BLOOD SUGAR DIAGNOSTIC STRIPS 10 Each once daily. Use as in* LEVOTHYROXINE 112 MCG TABLET Take 112 mcg by mouth once da* PEN NEEDLE, DIABETIC 32 GAUGE* Inject 4 Units subcutaneously* INSULIN ASPART 100 UNIT/ML GRIFFIN* Subcutaneous 4 times a day - * LOSARTAN 25 MG TABLET Take 25 mg by mouth once davida* MILK THISTLE ORAL Take 300 mg by mouth. COMPOUNDED PRESCRIPTION Flax seed oil 1000mg ASCORBIC ACID (VITAMIN C) 1,0* Take 1,000 mg by mouth once d* SIMVASTATIN 5 MG TABLET Take 5 mg by mouth daily at b* CHOLECALCIFEROL (VITAMIN D3) * Take by mouth. CYANOCOBALAMIN (VIT B-12) 1,0* Take 1,000 mcg by mouth once * ORENCIA 125 MG/ML SUBCUTANEOU* INJECT 1 SYRINGE SUBCUTANEOUS* ABATACEPT 125 MG/ML SUBCUTANE* Inject 125 mL subcutaneously * Problem List As Of Date 09/06/2017 Noted Resolved Falls [W19.XXXA] INVALID FOR* DM (diabetes mellitus) [E11.9] INVALID FOR* SLE exacerbation [M32.9] INVALID FOR* Positive cardiolipin antibodies [R76.8] INVALID FOR* Sjogren's syndrome [M35.00] INVALID FOR* Sleep difficulties [G47.9] INVALID FOR* Residual stage of angle-closure glaucoma, bilat*INVALID FOR*01/17/2017 Rheumatoid arthritis (HCC) [M06.9] Osteoporosis [M81.0] Osteoarthritis of hip [M16.9] Degenerative joint disease of shoulder region [* More... Follow-up examination after eye surgery [Z09] INVALID FOR*06/09/2016 Dry eye syndrome [H04.129] INVALID FOR* Pseudophakia, left eye [Z96.1] INVALID FOR* Residual stage of angle-closure glaucoma of bot*INVALID FOR* Closed Colles' fracture of right radius [S52.53*INVALID FOR* Rheumatoid arthritis involving multiple sites w* Chronic pain [G89.29] INVALID FOR* Prescriptions ordered this encounter Disp Refills Start End TRAMADOL 50 MG TABLET 60 t* 0 09/06/2017 10/05/2017 Class: Print RX Sig: Take 1-2 tablets by mouth daily, as needed. Medications Discontinued During This Encounter traMADol (ULTRAM) 50 mg tablet 60 t* 0 05/10/2017 09/06/2017 Class: Call Rx Sig: Take 1-2 tablets by mouth daily, as needed. Disc: Reason for discontinue is not on file. Disposition: Return in about 3 months (around 12/05/2017). Follow-up and Disposition History Recorded Questionnaire: RIGO ADAM YEARLY ADL ASSESSMENT Toileting -> Independent Bathing -> Independent Upper Body Dressing -> Independent Lower Body Dressing -> Independent Grooming/Hygiene -> Independent Self Feeding -> Independent Home Management (laundry/cleaning/chores/simple meal prep) -> Independent Encounter Status:Closed by JASVIR BOYD MD on 09/06/17 ALLERGIES ALLERGIES DATE TYPE / CODE NAME / CODE REACTION SEVERITY SOURCE 09/16/2016 Drug sulfamethoxazo Vomiting Unknown [facility] Allergy/4160 le/[id number]( [facility](SNOMED RXNORM) Repository CT) 09/16/2016 Drug trimethoprim/F Vomiting Unknown [facility] Allergy/4160 [id number](RXNO [facility](SNOMED RM) Repository CT) 09/16/2016 Drug gluten/[id number] stomach cramps Unknown [facility] Allergy/4160 207(RXNORM) [place] [address](SNOMED [address]ository CT) 10/06/2015 DRUG GLUTEN OTHER: SEE C [facility] INGREDI/4195 Other [place] [address](SNOMED Repository CT) 10/06/2015 DRUG/[id number] SULFAMETHOXAZO Vomiting [facility] 03(SNOMED LE-TRIMETHOPRI Other [place] CT) M Repository 08/16/2005 Drug SULFA OTHER: SEE C [facility] Class/173194 (SULFONAMIDE Other [place] 003(SNOMED ANTIBIOTICS) Repository CT) NG/[id number] GLUTEN [facility] (SNOMED CT) [facility] Repository NG/[id number] SULFAMETHOXAZO [facility] (SNOMED CT) LE-TRIMETHOPRI [facility] M Repository NG/[id number] SULFA [facility] (SNOMED CT) (SULFONAMIDE Health System ANTIBIOTICS) Repository ENCOUNTERS ENCOUNTERS ADMIT/DISCHARGE ACCOUNT NUMBER ADMITTING ENCOUNTER LOCATION SOURCE CLASS 08/25/2018 [id number] [facility] ding:HPRAD Repository 08/25/2018 [id number] Ambulatory [place] [facility] Repository 08/16/2018/08/16/[id number] ding:PT Repository 07/25/2018 [id number] Ambulatory [facility] Repository 07/25/2018/07/25/20 [id number] Ambulatory [address] MEDICAL Repository CENTERBuildi ng:AKLBS 07/25/2018/07/25/20 [id number] Ambulatory [address] Repository 07/25/2018/07/25/20 [id number] Ambulatory [address] MEDICAL Repository CENTERBuildi ng:AGRHEUHWN 07/24/2018 [id number] Ambulatory [facility] MEDICAL Repository CENTERBuildi ng:[place]UHWN 06/21/2018 [id number] [facility] ding:MTRAD Repository 06/12/2018/06/12/20 [id number] Ambulatory [address] Repository 05/26/2018 [id number] [facility] ding:MTLAB Repository 05/22/2018/05/22/20 [id number] Ambulatory [address] Repository 05/12/2018/05/12/20 [id number] Ambulatory [address] [place] Repository 05/11/2018/05/11/20 [id number] UBALDO, Ambulatory [address] Main [place] Repository 05/09/2018/05/10/20 [id number] Ambulatory [address] Main [place] Repository 05/01/2018/05/01/20 [id number] Ambulatory [address] Main [place] Repository 05/01/2018/05/01/20 [id number] Ambulatory [address] Main [place] Repository 04/17/2018 [id number] Ambulatory [facility] Other [place] Repository 04/17/2018/04/17/20 [id number] Ambulatory [address] MEDICAL Repository CENTERBuildi ng:AKLBS 04/17/2018/04/17/20 [id number] Ambulatory [address] Repository 04/17/2018/04/17/20 [id number] Ambulatory [address] MEDICAL Repository CENTERBuildi ng:AGRHEUHWN 03/29/2018/04/03/20 [id number] Ambulatory [address] Repository 02/22/2018 [id number] Ambulatory [facility] ding:CVS Repository 02/17/2018 [id number] Ambulatory [facility] ding:MTLAB Repository 01/23/2018/01/26/20 [id number] Ambulatory [address] Repository 12/22/2017 [id number] Ambulatory [facility] Repository 12/22/2017/12/23/19 [id number] Ambulatory [address] MEDICAL Repository CENTERBuildi ng:AKLBS 12/22/2017/12/23/19 [id number] Ambulatory [address] Other [place] Repository 12/22/2017/12/23/19 [id number] Ambulatory [address] MEDICAL Repository CENTERBuildi ng:AG[place]UHWN 11/19/2017 [id number] Ambulatory [facility] ding:LAB Repository 11/01/2017 [id number] Ambulatory [facility] ding:BI Repository 10/26/2017 [id number] Ambulatory [facility] ding:CVS Repository 10/26/2017 [id number] Ambulatory BMSBuilding: [facility] Repository 09/17/2017/09/17/19 [id number] Emergency [address] Repository 09/17/2017/09/17/19 [id number] Emergency [address] MEDICAL Repository CENTERBuildi ng:AKEDGRoom : EDBed: 05 09/06/2017 [id number] Ambulatory [facility] Repository 09/06/2017/09/06/19 [id number] Ambulatory [address] MEDICAL Repository CENTERBuildi ng:AKLBS 09/06/2017/09/06/19 [id number] Ambulatory [address] Repository 09/06/2017/09/06/19 [id number] Ambulatory [address] MEDICAL Repository CENTERBuildi ng:AGRHEUHWN PAYERS PAYERS ENCOUNTER GUARANTOR PAYER SUBSCRIBER SOURCE 08/25/2018 CHELSEA E [id number] Primary CHELSEA E [place] Insurance:ANTHEMPolic TROYERDOB: [place] Number: [id number] [facility] [address]Llw: (031) [id number] Repository [phone] () Date:[id number] [address]GP: 08/25/2018 Secondary NOT GIVENUNK [place] Insurance:SELF PAY [facility] Number: Effective Repository Date:2018-08-25 08/25/2018 CHELSEA E Primary CHELSEA E OHIP Practices TROYERDOB: Insurance:Blue TROYERDOB: Repository [facility] Number: [id number] [place] [id number] [place] Date:0881-73-64Ydhv JurgenRANCHO [place], [place] [address]Feg: (849) Name:[facility] [address]Lel: [address] [place] [address] [phone] () ()Tel: [phone]: () [phone] 08/25/2018 Secondary CHELSEA E OHIP Practices Insurance:United TROYERDOB: Repository [facility] [id number] Number: [place] [id number] [place], [place] Date:2007-08-08 [address]Uxe: [phone] [phone] (HP) Name:[facility] [address], [place] [address]JC: 08/16/2018 CHELSEA E [id number] Primary CHELSEA E [place] Insurance:ANTHEMPolic TROYERDOB: [facility] [place]GEN [facility] Number: [id number] [facility] [address]Zfb: (458) [id number] Repository [phone] () Date:2802-77-05RX [address] [place] [address]CC: 08/16/2018 Secondary NOT GIVENUNK [place] Insurance:SELF PAY [facility] Number: Effective Repository Date:2018-07-06 07/25/2018 CHELSEA E Primary CHELSEA E [facility] TROYERDOB: Insurance:BLUE CARD TROYERDOB: [facility] PPOPolicy Number: [id number] Repository [place] [id number] [place], [place] Date: [address]Szp: () 07/25/2018 CHELSEA E Primary CHELSEA E [facility] TROYERDOB: Insurance:BLUE CARD TROYERDOB: [facility] PPOPolicy Number: [id number] Repository [place] [id number] [place], [place] Date: [address]Dum: () 07/24/2018 CHELSEA E Primary CHELSEA E [facility] TROYERDOB: Insurance:BLUE CARD TROYERDOB: [facility] PPOPolicy Number: [id number] Repository [place] [id number] [place], [place] Date: [address]Vdr: () 06/21/2018 CHELSEA E [id number] Primary CHELSEA E [place] Insurance:ANTHEMPolic TROYERDOB: [facility] [place] Number: [id number] [facility] [address]Ean: ([phone]) [id number] Repository [phone] () Date:6586-98-03PW[address] [address]HH: 06/21/2018 Secondary NOT GIVENUNK [place] Insurance:SELF PAY [facility] Number: Effective Repository Date:2018-06-21 05/26/2018 CHELSEA E [id number] Primary CHELSEA E [place] Insurance:ANTHEMPolic TROYERDOB: [facility] [place] Number: [id number] Hospital [address]Trd: (385) [id number] Repository [phone] () Date:5872-31-96ZK[address] [address]CQ: 05/26/2018 Secondary NOT GIVENUNK [place] Insurance:SELF PAY [facility] Number: Effective Repository Date:2018-05-26 04/17/2018 CHELSEA E Primary CHELSEA E [facility] TROYERDOB: Insurance:BLUE CARD TROYERDOB: [facility] PPOPolicy Number: [id number] Repository [place] [id number] [place], [place] Date: [address]Zpt: () 04/17/2018 CHELSEA E Primary CHELSEA E [facility] TROYERDOB: Insurance:BLUE CARD TROYERDOB: [facility] PPOPolicy Number: [id number] Repository [place] [id number] [place], [place] Date: [address]Whs: () 02/22/2018 CHELSEA E [id number] Primary NOT GIVENUNK [place] Insurance:SELF PAY [facility] [address]Xvy: (902) Number: Effective Repository [phone] () Date:2018-02-14 02/17/2018 CHELSEA E [id number] Primary CHELSEA E [place] Insurance:ANTHEMPolic [place]OYERDOB: [place] Number: [id number] [facility] [address]Acu: (310) [id number] Repository [phone] () Date:9851-07-41NN [address] [place] [address] [place] [address]HL: 02/17/2018 Secondary NOT GIVENUNK [place] Insurance:SELF PAY [facility] [address] Number: Effective Repository Date:2018-02-17 12/22/2017 CHELSEA E Primary CHELSEA E [facility] TROYERDOB: Insurance:BLUE CARD TROYERDOB: [facility] PPOPolicy Number: [id number] Repository [place] [id number] [place], [place] Date: [address]Kpx: () 12/22/2017 CHELSEA E Primary CHELSEA E [facility] TROYERDOB: Insurance:BLUE CARD TROYERDOB: [facility] OPolicy Number: [id number] Repository [place] [id number] [facility] [place] Date: [address]Ddl: () 11/19/2017 CHELSEA E [id number] Primary CHELSEA E [place] Insurance:ANTHEMPolic TROYERDOB: [facility] [place] Number: [id number] Hospital [address]Hmu: ([phone]) [id number] Repository [phone] () Date:9914-30-15YD [address] [place] [address] [place] [address]LS: 11/19/2017 Secondary NOT GIVENUNK [place] Insurance:SELF PAY [facility] Number: Effective Repository Date:2017-11-19 11/01/2017 Chelsea E [id number] Primary [place] E [place] Insurance:ANTHEMPolic [place]DOB: [place] Number: [id number] [facility] [address]Mdw: (803) [id number] Repository [phone] () Date:4384-71-24YE [address] [place] [address]VH: 11/01/2017 Secondary NOT GIVENUNK [place] Insurance:SELF PAY [facility] Number: Effective Repository Date:2017-10-14 10/26/2017 Chelsea E [id number] Primary Chelsea E [place] Insurance:ANTHEMPolic TroyerDOB: [facility] [place] Number: [id number] Hospital [address]Lap: (159) [id number] Repository [phone] () Date:5734-30-62FO[address] [address]NW: 10/26/2017 Secondary NOT GIVENUNK [place] Insurance:SELF PAY [facility] Number: Effective Repository Date:2017-10-14 10/26/2017 Chelsea E [id number] Primary [place] E [place] Insurance:ANTHEMPolic TroyerDOB: [facility] [place] Number: [id number] Hospital [address]Vsr: (067) [id number] Repository [phone] () Date:9530-27-79QE [address] [place] [address]RU: 10/26/2017 Secondary NOT GIVENUNK [place] Insurance:SELF PAY [facility] Number: Effective Repository Date:2017-10-26 09/17/2017 CHELSEA E Primary CHELSEA E [facility] TROYERDOB: Insurance:BLUE CARD TROYERDOB: [facility] PPOPolicy Number: [id number] Repository [place] [id number] [place], [place] Date: [address]Kls: () 09/06/2017 CHELSEA E Primary CHELSEA E [facility] TROYERDOB: Insurance:BLUE CARD TROYERDOB: [facility] PPOPolicy Number: [id number] Repository [place] [id number] [place], [place] Date: [address]Bcv: () 09/06/2017 CHELSEA [facility] TROYERDOB: Insurance:[employer] [facility] PPOPolicy Number: [id number] Repository [place] [id number] [place], [place] Date: [address]Wfc: (HP)
== END ==
PROVIDERS: Family Provider Internal Medicine; PCP Internal Medicine; Referring Provider Internal Medicine; Visit Provider Internal Medicine
DX: M25.551 Pain in right hip (principal); M25.552 Pain in left hip; M25.511 Pain in right shoulder; M25.512 Pain in left shoulder
CPT/HCPCS: 72110; 73030; 73521

== ENCOUNTER → 2018-09-05 09:52 | Outpatient (CLI) | payer BC, SELFPAY ==
[2018-09-05 12:12] LABS: Microalbumin,Random Urine 6.7 mg/L (NO RANGE EST.)
[2018-09-05 12:13] LABS: Hemoglobin A1c 6.7 % (4.2-6.3)
[2018-09-05 12:19] LABS: Vitamin B12 > 2000 pg/mL (211-911)
[2018-09-05 12:29] LABS: AST(SGOT) 21 U/L (15-37); Alanine Aminotransfer ALT/SGPT 28 U/L (13-56); Anion Gap 7 (5-15); BUN 14 mg/dL (7-18); BUN/Creat Ratio 21.6 RATIO (10-20); Calcium,Total 8.7 mg/dL (8.5-10.1); Chloride 104 mmol/L (98-107); Cholesterol 178 mg/dL (200); Creatinine, Serum 0.65 mg/dL (0.55-1.02); EST Glomerular Filtration Rate 99 mL/min (>60); Est Glom Filt Rate - Afr Amer 120 mL/min (>60); Glucose 106 mg/dL (74-106); High Density Lipoprotein 83 mg/dL; Potassium 4.4 mmol/L (3.5-5.1); Sodium Level 138 mmol/L (136-145); Thyroid Stim Hormone (TSH) 1.22 uIU/mL (0.358-3.74); Triglycerides 38 mg/dL; Very Low Density Lipoprotein 8 mg/dL (5-40)
== END ==
PROVIDERS: Family Provider Internal Medicine; PCP Internal Medicine; Referring Provider Nurse Practitioner Adult Health; Visit Provider Nurse Practitioner Adult Health
DX: E03.8 Other specified hypothyroidism (principal); E53.9 Vitamin B deficiency, unspecified; E55.9 Vitamin D deficiency, unspecified; E10.65 Type 1 diabetes mellitus with hyperglycemia
CPT/HCPCS: 36415; 80048; 80061; 82043; 82306; 82570; 82607; 83036; 84439; 84443; 84450; 84460

== ENCOUNTER → 2018-09-26 16:20 | Outpatient (CLI) | payer BC, SELFPAY ==
--- NOTE | 2018-09-26 16:27 | MRI_ITS ---
STUDY: MRI CERVICAL SPINE WITHOUT CONTRAST REASON FOR EXAM: Female, 57 years old. CERVICAL RADICULOPATHY -- NKI, pain neck and bilat shoulders , fingers numb, x 6 months. TECHNIQUE: Standardized fat and water weighted pulse sequences were obtained in the sagittal and axial planes. COMPARISON: None FINDINGS: Normal foramen magnum and brainstem-cervical cord junction. Normal craniovertebral junction. Normal anterior atlantoaxial articulation. Normal odontoid process. Normal cervical lordosis. C2-3: Normal endplates. Normal disc height, signal and morphology. Normal central canal and intervertebral neural foramina. C3-4: There is minimal disc space narrowing and endplate spondylosis. There is no significant disc herniation, central canal or foraminal stenosis. C4-5: There is minimal disc space narrowing and endplates spondylosis. There is a minimal disc osteophyte complex and uncovertebral arthropathy with mild left foraminal stenosis. There is no significant central canal or right foraminal stenosis. C5-6: There is severe disc space narrowing and endplates spondylosis. There is a mild disc osteophyte complex with mild central canal stenosis. There is uncovertebral arthropathy with severe right and moderate left foraminal stenosis. C6-7: There is severe disc space narrowing and endplates spondylosis. There is mild disc osteophyte complex without significant central canal. It is uncovertebral arthropathy with moderate right and severe left foraminal foraminal stenosis. C7-T1: Normal endplates. Normal disc height, signal and morphology. Normal central canal and intervertebral neural foramina. Normal cervical cord. Normal visualized soft tissue structures. MRI/Spine Cervical (Routine) IMPRESSION: C5/C6: Severe right and moderate left foraminal stenosis. C6/C7: Moderate right and severe left foraminal stenosis. Electronically Signed: Temitope Rosa MD at 15:47 EST Tel , Service support ,
== END ==
PROVIDERS: Family Provider Internal Medicine; PCP Internal Medicine; Referring Provider Internal Medicine; Visit Provider Internal Medicine
DX: M54.12 Radiculopathy, cervical region (principal)
CPT/HCPCS: 72141

== ENCOUNTER → 2018-10-30 14:03 | Outpatient (CLI) | payer BC, SELFPAY ==
--- NOTE | 2018-10-30 14:07 | RAD_ITS ---
STUDY: X-RAY - RIGHT FOOT CLINICAL: Female, 57 years old. Heel pain for several months. TECHNIQUE: 3 view(s) of the foot. COMPARISON: None. FINDINGS: There is a plantar calcaneal spur. Normal talus and tarsal bones. Normal visualized subtalar, talonavicular, calcaneocuboid, tarsal and tarsometatarsal articulations. Normal metatarsi. There is mild degenerative arthrosis of the metatarsophalangeal joint of the hallux . Normal tibial and fibular sesamoid bones. Normal interphalangeal joint of the great toe. Normal phalanges of the great toe. Normal second through fifth metatarsophalangeal joints. Normal interphalangeal joints and phalanges of the lesser toes. The soft tissue structures are unremarkable. RAD/Foot min 3 Views IMPRESSION: 1. Plantar spur. 2. Mild degenerative changes of the first metatarsal phalangeal joint. Electronically Signed: Rajeev Farias DO at 11:20 EDT Tel [phone], Service support ,
== END ==
PROVIDERS: Family Provider Internal Medicine; PCP Internal Medicine; Referring Provider Internal Medicine; Visit Provider Internal Medicine
DX: M79.671 Pain in right foot (principal)
CPT/HCPCS: 73630

== ENCOUNTER → 2018-11-02 09:58 | Outpatient (CLI) | payer BC, SELFPAY ==
--- NOTE | 2018-11-02 10:00 | BI_ITS ---
MAMMOGRAPHY - BILATERAL SCREENING REASON FOR EXAM: Female, 57 years old. Routine annual screening examination. PERTINENT HISTORY: Non-contributory. Prior right ultrasound guided biopsy. TECHNIQUE: Digital bilateral breast zita (3D mammographic acquisition) in the CC and MLO projections. 2-D mediolateral oblique (MLO) and craniocaudad (CC) views of both breasts were obtained. CAD: Full Field Digital Mammography with Computer Added Detection was performed. COMPARISON: Comparison is made with prior examination November 01, 2017 and October 29, 2016. FINDINGS: Breast Composition: The breasts are heterogeneously dense, which may obscure small masses. There is a 1.2 cm x 1.3 cm nodular density in the deep slightly upper lateral aspect of the right breast. A tissue clip marker is seen adjacent to the nodule. Correlation with ultrasound is recommended for further evaluation. Stable appearance of the bilateral axillary lymph nodes. No other significant abnormalities are identified. There has been no significant change since the prior study. BI/SCREENING MAMM (CAD), BILAT IMPRESSION: Stable bilateral screening mammogram. Correlation with ultrasound of the right breast nodule is recommended for further evaluation. ASSESSMENT CATEGORY: BIRADS Category 0: Incomplete. Need additional imaging evaluation. A letter regarding these results will be sent to the patient by the facility within 30 days. Approximately 10% of breast cancers are not detected by mammography. A normal mammogram should not delay biopsy of a clinically suspicious abnormality. [id number] Electronically Signed: Salvador Pike, at 11:45 EDT , Service support ,
--- NOTE | 2018-11-02 10:03 | BD_ITS ---
STUDY: DUAL ENERGY X-RAY ABSORPTIOMETRY / DXA REASON FOR EXAM: Female, 57 years old. The patient is postmenopausal. Loss of height. TECHNIQUE: Bone Mineral Density (BMD) measurements of lumbar spine and bilateral hips were obtained. COMPARISON: Comparison is made with prior study dated September 30, 2016. FINDINGS: Lumbar Spine (L1-L4): g/cm2 (1.152) / T-score (-0.4) / Z-score (0.7) Findings are suggestive of normal bone density with a low fracture risk. Left Femur Total: g/cm2 (0.891) / T-score (-0.9) / Z-score (-0.1) Left Femoral Neck: g/cm2 (0.728) / T-score (-2.2) / Z-score (-1.0) Right Femur Total: g/cm2 (0.876) / T-score (-1.0) / Z-score (-0.2) Right Femoral Neck: g/cm2 (0.725) / T-score (-2.3) / Z-score (-1.1) The T-Scores on the most recent prior examination were: Lumbar Spine (L1-L4): There has been improvement of bone density since the previous examination. Left Femur Total: which represents a worsening of 1.2%. Right Femur Total: which represents an improvement of 1.5%. BD/Dexa Bone Density Study IMPRESSION: The patient is considered osteopenic as outlined below according to World Regulo Organization (WHO) criteria with a moderate fracture risk. There has been improvement of bone density since the previous examination. Reference Information: The T-score is the number of standard deviations above or below the standard which is normal for young adults at their peak bone mineral density. The World Health Organization (WHO) interprets the T-scores as follows: Above -1 Normal bone density Between -1 and -2.5 Osteopenia Equal to / or below -2.5 Osteoporosis As a practical clinical guideline, osteopenia may be graded as follows: Mild -1 through -1.5 Moderate -1.6 through -2.0 Severe -2.1 through -2.4 The Z-score is the number of standard deviations above or below age-matched controls. A Z-score of less than -1.5 would be considered abnormal. References: 1. NIH Osteoporosis and Related Bone Diseases http://www.osteo.org 2. International Society for Clinical Densitometry http://www.iscd.org 3. National Osteoporosis Foundation http://www.nof.org Electronically Signed: Salvador Pike, at 11:04 EDT , Service support ,
--- NOTE | 2018-11-02 15:34 | US_ITS ---
STUDY: ULTRASOUND BREAST - RIGHT REASON FOR EXAM: Female, 57 years old. Abnormal screening mammogram. TECHNIQUE: Axial and longitudinal images of the RIGHT breast were performed with a high resolution ultrasound transducer. COMPARISON: Comparison is made with prior mammogram done earlier in the day. Comparison is also made with prior ultrasound of the right breast dated October 29, 2016. FINDINGS: RIGHT Breast: There is a 1.7 cm x 2 cm x 1 cm lobulated cyst at the 9:00 position of the breast at 3 cm from the nipple. A tissue clip marker is seen adjacent to this cyst. US/Breast Limited Unilateral IMPRESSION: The mammographic abnormality corresponds to a lobulated cyst at the 9:00 position in the breast at 3 cm from nipple. ASSESSMENT CATEGORY: BIRADS Category 2: Benign. A letter regarding these results will be sent to the patient by the facility within 30 days. Electronically Signed: Salvador Pike, at 8:16 EDT , Service support ,
== END ==
PROVIDERS: Family Provider Internal Medicine; PCP Internal Medicine; Referring Provider Internal Medicine; Visit Provider Internal Medicine
DX: Z12.31 Encounter for screening mammogram for malignant neoplasm of breast (principal); Z78.0 Asymptomatic menopausal state; R92.8 Other abnormal and inconclusive findings on diagnostic imaging of breast
CPT/HCPCS: 76642; 77063; 77067; 77080

== ENCOUNTER → 2018-11-06 10:15 | Outpatient (CLI) | payer BC, SELFPAY ==
--- NOTE | 2018-11-06 10:24 | MRI_ITS ---
STUDY: MRI LUMBAR SPINE WITHOUT CONTRAST REASON FOR EXAM: Female, 57 years old. Radiculopathy. Right hip and leg pain. TECHNIQUE: Standardized fat and water weighted pulse sequences were obtained in the sagittal and axial planes. COMPARISON: X-ray dated August 25, 2018. FINDINGS: Lumbar lordosis preserved. No significant scoliosis. Conus medullaris terminates normally at the T12-L1 levels. L1 hemangioma. No acute fracture, dislocation or osseous destruction. No spondylolisthesis. T12-L1: Minimal endplate spondylosis. Shallow disc bulge without central canal narrowing. Normal bilateral facet joints. Normal central canal and bilateral lateral recesses. Normal bilateral intervertebral neural foramina. L1-2: Normal endplates. Shallow disc bulge without central canal narrowing. Normal bilateral facet joints. Normal central canal and bilateral lateral recesses. Normal bilateral intervertebral neural foramina. L2-3: Minimal endplate spondylosis. Disc bulge and mild bilateral extraforaminal extension without central canal narrowing. Normal bilateral facet joints. Normal central canal and bilateral lateral recesses. Normal bilateral intervertebral neural foramina. L3-4: Normal endplates. Disc desiccation. Facet joint arthrosis. Normal central canal and bilateral lateral recesses. Normal bilateral intervertebral neural foramina. L4-5: Minimal endplate spondylosis. Shallow disc bulge without central canal narrowing. Facet joint arthrosis. Normal central canal and bilateral lateral recesses. Normal bilateral intervertebral neural foramina. L5-S1: Minimal endplate spondylosis. Disc bulge, slightly asymmetric to the right, without central canal narrowing. Facet joint arthrosis. Normal central canal and bilateral lateral recesses. Normal bilateral intervertebral neural foramina. Sacrum intact. Normal aorta. Normal retroperitoneum. Normal paraspinal muscles. MRI/Spine Lumbar (Routine) IMPRESSION: Multilevel disc bulges without central canal narrowing Mild osseous degenerative changes Electronically Signed: Khari Saldana DO at 8:17 EDT Tel , Service support ,
== END ==
PROVIDERS: Family Provider Internal Medicine; PCP Internal Medicine; Referring Provider Internal Medicine; Visit Provider Internal Medicine
DX: M54.16 Radiculopathy, lumbar region (principal)
CPT/HCPCS: 72148

== ENCOUNTER → 2018-12-08 | Outpatient (CLI) | payer BC, SELFPAY ==
[2018-11-10 14:13] VITALS: BMI 22.7
[2018-12-08 13:27] LABS: Bacteria 0 SEEN /hpf (None Seen); Mucous, Urine 0 SEEN /hpf (<or=2+); Red Blood Cells-Urine 0 SEEN /hpf (0-5); White Blood Cells 0 SEEN /hpf (0-5)
[2018-12-08 13:35] LABS: Absolute Lymphocyte Count 1.69 X10^3/ul (0.83-4.51); Absolute Neutrophil Count 2.3 X10^3/uL (2.0-7.7); Basophil# 0.01 X10^3/uL; Basophil% 0.2 % (0-1); Eosinophil# 0.15 X10^3/uL; Eosinophils% 3.3 % (0-5); Hematocrit 38.7 % (37-47); Hemoglobin 12.8 g/dl (12.0-15.0); Lymphocyte # 1.69 X10^3/ul (4.0); Lymphocyte % 37.3 % (19-41); Mean Corp Hgb Conc 33.1 g/gl (32-36); Mean Corpuscular Hgb 31.7 pg (27.0-32.0); Mean Corpuscular Volume 95.8 fL (81-99); Mean Platelet Vol. 10.8 fl (6.2-12.0); Monocyte# 0.33 X10^3/uL; Monocyte% 7.3 % (0-10); Neutrophil # 2.34 X10^3/uL (2.7-7.7); Neutrophil % 51.7 % (47-70); Platelet Count 180 K/mm3 (150-450); RBC Distribution Width SD 45.5 fl (35.1-43.9); Red Blood Count 4.04 M/mm3 (4.2-5.4); White Blood Count 4.5 K/mm3 (4.4-11.0)
[2018-12-08 13:37] LABS: POSITIVE COUNT NO; POSITIVE DIFFERENTIAL NO; POSITIVE MORPHOLOGY NO
[2018-12-08 13:41] LABS: Color, Urine Yellow (Yellow); Glucose, Dipstick Normal (Normal); Ketone-Dipstick Negative (Negative); Leukocyte Esterase-Dipstick 25 /ul (Negative); Nitrite-Dipstick Negative (Negative); Occult Blood-Urine Negative /ul (Negative); Protein-Dipstick Negative (Negative); Specific Gravity, Urine 1.005 (1.002-1.030); Urine Bilirubin Dipstick Negative (Negative); Urine Clarity Clear (Clear); Urine Urobilinogen Normal (Normal)
[2018-12-08 13:47] LABS: ALB/GLOB Ratio 1.5 RATIO (0.9-2.4); AST(SGOT) 19 U/L (15-37); Alanine Aminotransfer ALT/SGPT 22 U/L (13-56); Alkaline Phosphatase 107 U/L (45-117); Anion Gap 4 (5-15); BUN 15 mg/dL (7-18); BUN/Creat Ratio 24.7 RATIO (10-20); Calcium,Total 9.1 mg/dL (8.5-10.1); Chloride 101 mmol/L (98-107); Creatinine, Serum 0.61 mg/dL (0.55-1.02); EST Glomerular Filtration Rate 107 mL/min (>60); Est Glom Filt Rate - Afr Amer 130 mL/min (>60); Globulin 2.7 g/dL (2.2-4.2); Glucose 113 mg/dL (74-106); Potassium 4.1 mmol/L (3.5-5.1); Protein, Total 6.7 g/dL (6.4-8.2); Sodium Level 138 mmol/L (136-145)
[2018-12-08 13:59] LABS: Squamous Epithelial Cells - UA 0-5 SEEN /hpf (5-10)
== END | disposition home or self-care (01) ==
LOC: LABSPEC 13:20
PROVIDERS: Family Provider Internal Medicine; PCP Internal Medicine; Referring Provider Internal Medicine; Visit Provider Internal Medicine
DX: R50.9 Fever, unspecified (principal)
CPT/HCPCS: 80053; 81001; 85025; 87086; 87088

== ENCOUNTER → 2018-12-22 | Outpatient (CLI) | payer BC, SELFPAY ==
[2018-11-10 14:13] VITALS: BMI 22.7
[2018-12-22 17:32] LABS: Absolute Lymphocyte Count 1.22 X10^3/ul (0.83-4.51); Absolute Neutrophil Count 2.4 X10^3/uL (2.0-7.7); Basophil# 0.01 X10^3/uL; Basophil% 0.2 % (0-1); Eosinophil# 0.11 X10^3/uL; Eosinophils% 2.7 % (0-5); Hematocrit 39.1 % (37-47); Hemoglobin 12.9 g/dl (12.0-15.0); Lymphocyte # 1.22 X10^3/ul (4.0); Lymphocyte % 29.9 % (19-41); Mean Corpuscular Hgb 31.3 pg (27.0-32.0); Mean Corpuscular Volume 94.9 fL (81-99); Mean Platelet Vol. 11.3 fl (6.2-12.0); Monocyte% 7.4 % (0-10); Neutrophil # 2.44 X10^3/uL (2.7-7.7); Neutrophil % 59.8 % (47-70); Platelet Count 116 K/mm3 (150-450); RBC Distribution Width CV 12.9 % (11.6-14.6); RBC Distribution Width SD 43.7 fl (35.1-43.9); Red Blood Count 4.12 M/mm3 (4.2-5.4); White Blood Count 4.1 K/mm3 (4.4-11.0)
[2018-12-22 17:43] LABS: POSITIVE COUNT NO; POSITIVE DIFFERENTIAL NO; POSITIVE MORPHOLOGY NO
[2018-12-22 17:45] LABS: ALB/GLOB Ratio 1.3 RATIO (0.9-2.4); AST(SGOT) 22 U/L (15-37); Alanine Aminotransfer ALT/SGPT 28 U/L (13-56); Albumin, Serum 3.9 g/dL (3.2-5.0); Alkaline Phosphatase 100 U/L (45-117); Anion Gap 6 (5-15); BUN 16 mg/dL (7-18); BUN/Creat Ratio 23.2 RATIO (10-20); Calcium,Total 8.5 mg/dL (8.5-10.1); Chloride 100 mmol/L (98-107); Creatinine, Serum 0.69 mg/dL (0.55-1.02); EST Glomerular Filtration Rate 93 mL/min (>60); Est Glom Filt Rate - Afr Amer 112 mL/min (>60); Globulin 2.9 g/dL (2.2-4.2); Glucose 305 mg/dL (74-106); Lipase 114 U/L (73-393); Potassium 4.2 mmol/L (3.5-5.1); Protein, Total 6.8 g/dL (6.4-8.2); Sodium Level 135 mmol/L (136-145); Thyroid Stim Hormone (TSH) 0.79 uIU/mL (0.358-3.74)
== END | disposition home or self-care (01) ==
LOC: MTLAB 15:30
PROVIDERS: Family Provider Internal Medicine; PCP Internal Medicine; Referring Provider Internal Medicine; Visit Provider Internal Medicine
DX: E10.9 Type 1 diabetes mellitus without complications (principal); E03.9 Hypothyroidism, unspecified
CPT/HCPCS: 36415; 80053; 83690; 84443; 85025

== ENCOUNTER → 2019-02-06 | Outpatient (CLI) | payer BC, SELFPAY ==
[2018-11-10 14:13] VITALS: BMI 22.7
[2019-02-06 12:22] LABS: Hemoglobin A1c 6.7 % (4.2-6.3)
[2019-02-06 12:23] LABS: AST(SGOT) 20 U/L (15-37); Alanine Aminotransfer ALT/SGPT 27 U/L (13-56); Anion Gap 9 (5-15); BUN 12 mg/dL (7-18); BUN/Creat Ratio 17.6 RATIO (10-20); Calcium,Total 8.8 mg/dL (8.5-10.1); Chloride 102 mmol/L (98-107); Cholesterol 183 mg/dL (200); Creatinine, Serum 0.68 mg/dL (0.55-1.02); EST Glomerular Filtration Rate 94 mL/min (>60); Est Glom Filt Rate - Afr Amer 113 mL/min (>60); Glucose 113 mg/dL (74-106); High Density Lipoprotein 97 mg/dL; Potassium 4.3 mmol/L (3.5-5.1); Sodium Level 142 mmol/L (136-145); T4 Free Direct 1.26 ng/dL (0.76-1.46); Thyroid Stim Hormone (TSH) 2.43 uIU/mL (0.358-3.74); Triglycerides 38 mg/dL; Very Low Density Lipoprotein 8 mg/dL (5-40)
[2019-02-06 12:24] LABS: Vitamin B12 > 2000 pg/mL (211-911); Vitamin D,25 Hydroxy 42.6 ng/mL (29.95-100.01)
[2019-02-06 12:32] LABS: Microalbumin,Random Urine 19.3 mg/L (NO RANGE EST.)
== END | disposition home or self-care (01) ==
LOC: MTLAB 10:26
PROVIDERS: Family Provider Internal Medicine; PCP Internal Medicine; Referring Provider Nurse Practitioner Adult Health; Visit Provider Nurse Practitioner Adult Health
DX: E03.8 Other specified hypothyroidism (principal); E53.9 Vitamin B deficiency, unspecified; E55.9 Vitamin D deficiency, unspecified; E10.65 Type 1 diabetes mellitus with hyperglycemia
CPT/HCPCS: 36415; 80048; 80061; 82043; 82306; 82607; 83036; 84439; 84443; 84450; 84460

== ENCOUNTER → 2019-02-20 | Outpatient (CLI) | payer BC, SELFPAY ==
[2018-11-10 14:13] VITALS: BMI 22.7
--- NOTE | 2019-02-20 08:57 | US_ITS ---
STUDY: THYROID ULTRASOUND REASON FOR EXAM: Female, 58 years old. TECHNIQUE: Ultrasound evaluation of the thyroid was performed with real-time and static gonzales-scale imaging. COMPARISON: 11/01/2017. FINDINGS: RIGHT LOBE: The right lobe of the thyroid gland measures 4.3 x 1.0 x 1.0 cm. There is a heterogeneous echotexture. There are no demonstrated solid, cystic or complex lesions. Multiple stable tiny nodules are seen and no larger than 9 mm. LEFT LOBE: The left lobe of the thyroid gland measures 4.1 x 1.0 x 0.7 cm. There is a heterogeneous echotexture. Multiple stable tiny nodules are seen and no larger than 4 mm. ISTHMUS: The isthmus measures 2 mm. . The regional lymph nodes are normal. US/Thyroid IMPRESSION: Stable heterogeneous thyroid gland with multiple incidental subcentimeter nodules. No dominant nodule or mass. Electronically Signed: Sid Conklin MD at 17:36 EDT , Service support ,
== END | disposition home or self-care (01) ==
PROVIDERS: Family Provider Internal Medicine; PCP Internal Medicine; Referring Provider Internal Medicine; Visit Provider Internal Medicine
DX: E04.2 Nontoxic multinodular goiter (principal)
CPT/HCPCS: 76536

== ENCOUNTER → 2019-02-28 | Outpatient (CLI) | payer BC, SELFPAY ==
[2018-11-10 14:13] VITALS: BMI 22.7
[2019-02-28 12:34] LABS: Erythrocyte Sedimentation Rate 1 mm/hr (0-30)
[2019-02-28 12:42] LABS: Basophil# 0.03 X10^3/uL; Basophil% 0.7 % (0-1); Eosinophil# 0.13 X10^3/uL; Eosinophils% 3.1 % (0-5); Hematocrit 41.1 % (37-47); Hemoglobin 13.6 g/dL (12.0-15.0); Lymphocyte # 1.61 X10^3/ul (4.0); Lymphocyte % 37.8 % (19-41); Mean Corp Hgb Conc 33.1 g/dL (32-36); Mean Corpuscular Hgb 32.2 pg (27.0-32.0); Mean Corpuscular Volume 97.4 fL (81-99); Mean Platelet Vol. 11.3 fl (6.2-12.0); Monocyte# 0.42 X10^3/uL; Monocyte% 9.9 % (0-10); NRBC Flagged by Analyzer 0 % (0-5); Neutrophil # 2.06 X10^3/uL (2.7-7.7); Neutrophil % 48.3 % (47-70); POSITIVE COUNT YES; Platelet Count 141 K/mm3 (150-450); RBC Distribution Width CV 12.7 % (11.6-14.6); RBC Distribution Width SD 44.9 fl (35.1-43.9); Red Blood Count 4.22 M/mm3 (4.2-5.4); White Blood Count 4.3 K/mm3 (4.4-11.0)
[2019-02-28 12:54] LABS: ALB/GLOB Ratio 1.2 RATIO (0.9-2.4); AST(SGOT) 19 U/L (15-37); Alanine Aminotransfer ALT/SGPT 25 U/L (13-56); Albumin, Serum 3.7 g/dL (3.2-5.0); Alkaline Phosphatase 107 U/L (45-117); Anion Gap 7 (5-15); BUN 12 mg/dL (7-18); BUN/Creat Ratio 17.2 RATIO (10-20); CRP 4.96 mg/L (0.0-3.0); Calcium,Total 8.9 mg/dL (8.5-10.1); Chloride 104 mmol/L (98-107); EST Glomerular Filtration Rate 92 mL/min (>60); Est Glom Filt Rate - Afr Amer 111 mL/min (>60); Globulin 3.1 g/dL (2.2-4.2); Glucose 76 mg/dL (74-106); Potassium 3.9 mmol/L (3.5-5.1); Protein, Total 6.8 g/dL (6.4-8.2); Sodium Level 142 mmol/L (136-145)
[2019-02-28 13:56] LABS: Differential Indicated SCAN CRITERIA MET
== END | disposition home or self-care (01) ==
LOC: MTLAB 11:19
PROVIDERS: Family Provider Internal Medicine; PCP Internal Medicine; Referring Provider Internal Medicine Rheumatology; Visit Provider Internal Medicine Rheumatology
DX: M05.79 Rheumatoid arthritis with rheumatoid factor of multiple sites without organ or systems involvement (principal); M81.0 Age-related osteoporosis without current pathological fracture; G89.29 Other chronic pain; M47.9 Spondylosis, unspecified
CPT/HCPCS: 36415; 80053; 85025; 85652; 86140

== ENCOUNTER 2019-03-07 10:00 | Outpatient (RCR) | payer BC, SELFPAY ==
[2018-11-10 14:13] VITALS: BMI 22.7
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
--- NOTE | 2019-03-07 17:47 | HP.PTDCSUM_ITS ---
HP - PT D/C Summary It has been my pleasure to treat VIOLETA HENNING under orders from MOODY OWENS, for the diagnosis of ACDF C5-7 NOVEMBER 17 2018 for a total of 15 visit(s). Discharge Date: Please see the following information for a summary of their discharge status. - Subjective Subjective: PATIENT REPORTS THAT IN CERTAIN WAYS SHE IS BETTER. HER FOOT PAIN IS MILD TO MODERATE NOW AND DEFINATELY IMPROVED. PATIENT REPORTS THE PAIN IN BOTH OF HER SHOULDERS HAS ALSO DEFINATELY IMPROVED. NUMBNESS IN HER HANDS AT NIGHT HAS ALSO IMIPROVED. PATIENT REPORTS SHE FEELS LIKE THE POOL REALLY HELPED HER IN A LOT OF WAYS AND SHE IS GOING TO CONTINUE ON HER OWN INDEP'LY AT THIS TIME. - Pain NECK Pain Intensity (Out of 10): 1 Lumbar Spine Pain Intensity (Out of 10): 4 BLAT Feet Pain Intensity (Out of 10): 3 BLAT Hip Pain Intensity (Out of 10): 3 shoulders Pain Intensity (Out of 10): 3 wrists Pain Intensity (Out of 10): 2 - Overall Improvement % Improvement: 40 - Objective Objective/Function: PATIENT CONTINUES TO HAVE SIGNIFICANT DEFICITS BUT IS INDEP WITH A WATER EX PROGRAM NOW. PATIENT IS EXPRESSING THAT EVEN THOUGH HER PROGRESS IS SMALL IT IS BIG FOR HER AND SHE IS HAPPY TO BE MAKING THIS PROGRESS. UPON EXAM TODAY: ANTALGIC BUT INDEP GAIT. Motor deficit: BENJI SHOULDERS GROSSLY 3- /5, ELBOWS 3+/5, FOREARMS, WRISTS AND HANDS 4-/5. (LEFT ELBOW TIGHTNESS - OLD INJURY). Sensory deficit: NO. ROM deficit: BENJI AROM OF SHOULDERS LIMITED TO ABOUT 120 DEG ELEVATION WITH ERP. Dural Signs: POSITIVE BENJI UE'S. Cervical Mvmt Loss: Flex: MOD. Pro: MIN. Ext: SANJAY. Ret: SANJAY. RSB: MOD. LSB: MOD TO SANJAY. R Rot: MOD. L Rot: MOD TO SANJAY. Postural strength: POOR. Motor deficit: BENJI LE WEAKNESS. MMT'ING IS PAIN LIMITED. GROSSLY BENJI LE STRENGTH IS: HIPS 4-/5, KNEE'S 4/5, ANKLES 5/5. Sensory deficit: BENJI LE LIGHT TOUCH SENSATION APPEARS INTACT AND SYNMMETRICAL. ROM deficit: TIGHT BENJI HIP FLEXORS, HAMSTRINGS AND GASTROC SOLEUS COMPLEX'S. Dural Signs: POSITIVE BENJI LE'S. Lumbar mvmt loss: flex - MOD. ext - SANJAY. R SG - MOD. L SG - MOD. PATIENT WITH PAIN BEHAVIOR AND VOICING INCREASED BACK AND LEG PAIN WITH LUMBAR ROM TESTING ALL PLANES. Core strength: POOR - Goals Goal 1:: DECREASE C/O NECK AND BENJI UE SX'S. Goal 2:: IMPROVE PERSONAL CARE, LIFTING, READING, SLEEP, HOUSEWORK, DRIVING AND RECREATIONAL FUNCTION Goal 3:: INSTRUCT IN PROPHLAXIS - Plan Plan: D/C TO INDEP EX. PATIENT IS AGREEABLE. - D/C Information If there are questions or concerns regarding this patient's physical therapy, please feel free to call me at [phone]. Thank you for the referral of this patient. Sincerely, Narda Mckeon, PT, Cert MDT
== END 2019-03-07 19:00 | disposition home or self-care (01) ==
LOC: PT 10:00
PROVIDERS: Family Provider Internal Medicine; PCP Internal Medicine
DX: M54.16 Radiculopathy, lumbar region (principal); M54.12 Radiculopathy, cervical region; R29.898 Other symptoms and signs involving the musculoskeletal system; Z98.890 Other specified postprocedural states
CPT/HCPCS: 97110; 97113; 97162; 97530

== ENCOUNTER 2019-05-15 10:26 | Emergency (ER) | payer BC, SELFPAY ==
[2018-11-10 14:13] VITALS: BMI 22.7
[2019-05-15 10:27] VITALS: BP 155/80; PULSE 89; RESP 19; TEMP 36.3; O2SAT 100; BMI 22.3
--- NOTE | 2019-05-15 10:51 | ED.DCSUM_ITS ---
History of Present Illness Chief Complaint: Back Informant: Patient Onset: Weeks Context: Gradual Onset Current Severity: Moderate Maximum Severity: Moderate Narrative: Patient presents with left-sided low back pain. She has a history of mild lumbar problems. She underwent surgery for her cervical spine 6 months ago. A week and a half ago patient was babysitting her grandchildren. She states she was lifting them some. She started to develop low back pain that shoots down her left leg. Her PCP yesterday started her on a prednisone taper and she took 40 mg last evening. She has been taking Flexeril for muscle spasms. She tried tramadol and some old Vicodin that she had at home for pain without improvement. She is scheduled to see her PCP tomorrow but presented today due to pain that was unrelenting. - Past Medical History (1) Arthritis Status: Chronic (2) Diabetes Status: Chronic (3) Rheumatoid arthritis Status: Chronic Past Medical History - Allergies and Home Meds Allergies/Adverse Reactions: Allergies gluten Adverse Reaction (Verified 05/15/19 10:38) stomach cramps sulfamethoxazole [From Aprra] Adverse Reaction (Verified 05/15/19 10:38) Vomiting trimethoprim [From Aprra] Adverse Reaction (Verified 05/15/19 10:38) Vomiting Primary Care Physician: Karin Segura DO [Primary Care Provider] - Prior records reviewed: Yes Past Medical History: - - Reviewed Surgical History: - - Cervical spine Lives: Spouse/ Significant Other Smoking Status: Never smoker Review of Systems General: Denies: Chills, Fever Eyes: Denies: Visual changes - bilaterally ENT: Denies: Bilateral ear pain Cardiovascular: Denies: Chest pain Respiratory: Denies: Dyspnea, Cough Gastrointestinal: Reports: Nausea. Denies: Abdominal pain, Vomiting Genitourinary: Denies: Dysuria Musculoskeletal: Reports: Back pain, Extremity Pain. Denies: Swelling Skin: Denies: Rash Neurological: Denies: Headache, Parasthesia Hematologic: Denies: Easy bruising Allergy: Denies: Uticaria Physical Exam Vital Signs/Narrative: Vital Signs Temp Pulse Resp BP Pulse Ox 05/15/19 10:27 97.4 F L 89 19 H 155/80 H 100 Inital Vital Signs reviewed: Yes General: Well nourished, Well developed Head: Normocephalic ENT: Moist mucous membranes Neck: Supple Cardiovascular: Regular rate, Regular rhythm Respiratory: No distress, CTA bilaterally Abdomen: Soft, Normal bowel sounds Back: - - No midline tenderness. She has reproducible tenderness of the left sciatic notch. Extremities: Nontender, No edema Skin: Normal color, No rash Neurological: Alert, Oriented x3, Normal Strength, Normal Sensation, - - Strong distal pulses Psychological: Normal affect Diagnostic/Tx/Re-eval - Medical Decision Making Patient was given 0.5 mg of Dilaudid along with Zofran. On repeat evaluation she does feel improved. She still does have some pain. I encouraged her to continue her gabapentin and her steroids. She will be written a prescription for [place] as well as Valium to use for muscle spasm instead of her Flexeril. She has an appointment with her PCP tomorrow morning. She asked about obtaining an MRI of her back while she is here, but I explained to her that I do not have any criteria for an emergency MRI through the emergency room. She will discuss this with her primary care physician tomorrow. ED Disposition - Plan for ED Patient: Disposition: Home or Assisted Living Diagnosis: Sciatica Instructions: BACK PAIN w/ SCIATICA Prescriptions: Hydrocodone Bitart/Apap 5-325 [[place] 5MG-325MG] 1 tablet PO Q6H PRN PRN 3 Days #10 tablet PRN Reason: Pain Diazepam [Valium] 5 mg PO Q8 PRN #10 tablet PRN Reason: Muscle Spasm Referrals: Karin Segura DO [Primary Care Provider] - Keep Khushi appointment
[2019-05-15] MEDS: HYDROmorphone 1 MG/ML Syringe 0.5 MG IV (11:03)
[2019-05-15] MEDS: Ondansetron 4 MG/2 ML Vial IV (11:04)
[2019-05-15] MEDS: 0.9% Normal Saline 1,000 ML 150 ML IV (11:04)
[2019-05-15 12:45] VITALS: BP 145/73; PULSE 71; RESP 16; O2SAT 100
== END 2019-05-15 12:46 | disposition home or self-care (01) ==
PROVIDERS: Emergency Provider Emergency Medicine; Family Provider Internal Medicine; PCP Internal Medicine
DX: M54.42 Lumbago with sciatica, left side (principal); X50.9XXA Other and unspecified overexertion or strenuous movements or postures, initial encounter; Y93.9 Activity, unspecified; Y92.9 Unspecified place or not applicable; M06.9 Rheumatoid arthritis, unspecified; E11.9 Type 2 diabetes mellitus without complications; Z79.4 Long term (current) use of insulin; Z79.899 Other long term (current) drug therapy
CPT/HCPCS: 96361; 96374; 96375; 99283; J7030; A4216; J2405

== ENCOUNTER → 2019-05-30 12:10 | Outpatient (CLI) | payer BC, SELFPAY ==
[2019-05-15 10:27] VITALS: BMI 22.3
[2019-05-30 12:21] LABS: Absolute Neutrophil Count 3.3 X10^3/uL (2.0-7.7); Basophil# 0.02 X10^3/uL; Basophil% 0.4 % (0-1); Eosinophil# 0.18 X10^3/uL; Eosinophils% 3.4 % (0-5); Hematocrit 40.5 % (37-47); Hemoglobin 13.2 g/dL (12.0-15.0); Lymphocyte % 22.9 % (19-41); Mean Corp Hgb Conc 32.6 g/dL (32-36); Mean Corpuscular Hgb 32.2 pg (27.0-32.0); Mean Corpuscular Volume 98.8 fL (81-99); Mean Platelet Vol. 10.9 fl (6.2-12.0); Monocyte# 0.53 X10^3/uL; Monocyte% 10.1 % (0-10); Neutrophil # 3.29 X10^3/uL (2.7-7.7); Neutrophil % 62.8 % (47-70); Platelet Count 158 K/mm3 (150-450); RBC Distribution Width CV 12.3 % (11.6-14.6); RBC Distribution Width SD 45.2 fl (35.1-43.9); White Blood Count 5.2 K/mm3 (4.4-11.0)
[2019-05-30 12:22] LABS: NRBC Flagged by Analyzer 0 % (0-5)
[2019-05-30 12:59] LABS: ALB/GLOB Ratio 1.2 RATIO (0.9-2.4); AST(SGOT) 26 U/L (15-37); Alanine Aminotransfer ALT/SGPT 29 U/L (13-56); Albumin, Serum 3.7 g/dL (3.2-5.0); Alkaline Phosphatase 100 U/L (45-117); Anion Gap 4 (5-15); BUN 12 mg/dL (7-18); BUN/Creat Ratio 21.3 RATIO (10-20); Calcium,Total 9.1 mg/dL (8.5-10.1); Chloride 105 mmol/L (98-107); Creatinine, Serum 0.56 mg/dL (0.55-1.02); EST Glomerular Filtration Rate 117 mL/min (>60); Est Glom Filt Rate - Afr Amer 141 mL/min (>60); Globulin 3.2 g/dL (2.2-4.2); Glucose 58 mg/dL (74-106); Lipase 72 U/L (73-393); Potassium 3.9 mmol/L (3.5-5.1); Protein, Total 6.9 g/dL (6.4-8.2); Sodium Level 140 mmol/L (136-145)
== END ==
PROVIDERS: Family Provider Internal Medicine; PCP Internal Medicine; Referring Provider Internal Medicine; Visit Provider Internal Medicine
DX: R07.89 Other chest pain (principal); R11.2 Nausea with vomiting, unspecified
CPT/HCPCS: 80053; 83690; 84484; 85025; 85379

== ENCOUNTER → 2019-05-30 14:33 | Outpatient (CLI) | payer OTHER, BC, SELFPAY ==
[2019-05-15 10:27] VITALS: BMI 22.3
--- NOTE | 2019-05-30 15:05 | CT_ITS ---
STUDY: CTA CHEST REASON FOR EXAM: Female, 58 years old. Elevated d-dimer. Right sided posterior chest pain. Recent lumbar surgery. RADIATION DOSAGE (If Supplied By Facility): CTDIvol = ( 6.64 ) mGy, DLP = ( 197.34 ) mGycm TECHNIQUE: The examination was performed with the intravenous administration of IV Isovue 370 75ml. Post-processing of the angiographic images was performed, with multiplanar reformation and 3D reconstruction. Individualized dose optimization techniques were used for this CT. COMPARISON: None. FINDINGS: Normal enhancement of the main pulmonary artery and right and left pulmonary arteries. Normal enhancement of the bilateral peripheral pulmonary arteries. There is no demonstrated pulmonary embolism. Normal thoracic aorta and visualized great vessels. There is no demonstrated aortic dissection. Normal heart and pericardium. Normal mediastinum. Normal hilar regions. Normal visualized trachea and bronchi. The lungs are well expanded. Normal pulmonary parenchyma. Normal pleura. Normal chest wall structures. There are degenerative changes of thoracic spine. Small hiatal hernia. CT/CTA Chest W/WO Contrast IMPRESSION: No acute abnormality is seen. Electronically Signed: Salvador Pike, at 15:55 EDT , Service support ,
== END ==
PROVIDERS: Family Provider Internal Medicine; PCP Internal Medicine; Referring Provider Internal Medicine; Visit Provider Internal Medicine
DX: R79.89 Other specified abnormal findings of blood chemistry (principal)
CPT/HCPCS: 71275

== ENCOUNTER → 2019-06-08 10:45 | Outpatient (CLI) | payer BC, OTHER, SELFPAY ==
[2019-05-15 10:27] VITALS: BMI 22.3
[2019-06-08 12:46] LABS: Microalbumin,Random Urine 5.7 mg/L (NO RANGE EST.); Microalbumin:Creatinine Ratio 11.2 mg/g CRE (<30 mg/g CRE)
[2019-06-08 12:52] LABS: Hemoglobin A1c 6.5 % (4.2-6.3)
[2019-06-08 13:15] LABS: AST(SGOT) 28 U/L (15-37); Alanine Aminotransfer ALT/SGPT 29 U/L (13-56); Anion Gap 7 (5-15); BUN 12 mg/dL (7-18); Calcium,Total 8.9 mg/dL (8.5-10.1); Chloride 103 mmol/L (98-107); EST Glomerular Filtration Rate 109 mL/min (>60); Est Glom Filt Rate - Afr Amer 132 mL/min (>60); Glucose 93 mg/dL (74-106); Potassium 4.7 mmol/L (3.5-5.1); Sodium Level 140 mmol/L (136-145); T4 Free Direct 1.78 ng/dL (0.76-1.46); Thyroid Stim Hormone (TSH) 0.18 uIU/mL (0.358-3.74)
[2019-06-08 14:48] LABS: Vitamin B12 1140 pg/mL (211-911); Vitamin D,25 Hydroxy 62.1 ng/mL (29.95-100.01)
== END ==
PROVIDERS: Family Provider Internal Medicine; PCP Internal Medicine; Referring Provider Nurse Practitioner Adult Health; Visit Provider Nurse Practitioner Adult Health
DX: E03.8 Other specified hypothyroidism (principal); E53.9 Vitamin B deficiency, unspecified; E55.9 Vitamin D deficiency, unspecified; E10.65 Type 1 diabetes mellitus with hyperglycemia
CPT/HCPCS: 36415; 80048; 82043; 82306; 82570; 82607; 83036; 84439; 84443; 84450; 84460

== ENCOUNTER → 2019-07-02 14:36 | Outpatient (CLI) | payer BC, OTHER, SELFPAY | PROVIDERS: Family Provider Internal Medicine; PCP Internal Medicine; Visit Provider Internal Medicine | DX: R74.8 Abnormal levels of other serum enzymes (principal) ==

== ENCOUNTER → 2019-07-03 09:15 | Outpatient (CLI) | payer BC, OTHER, SELFPAY ==
[2019-07-02 11:06] LABS: Alkaline Phosphatase 346 U/L (45-117)
== END ==
PROVIDERS: Family Provider Internal Medicine; PCP Internal Medicine; Visit Provider Internal Medicine
DX: R74.8 Abnormal levels of other serum enzymes (principal)
CPT/HCPCS: 84075

== ENCOUNTER → 2019-07-04 11:01 | Outpatient (CLI) | payer BC, OTHER, SELFPAY ==
--- NOTE | 2019-07-04 11:05 | RAD_ITS ---
STUDY: X-RAY - RIGHT FOOT CLINICAL: Female, 58 years old. TECHNIQUE: 3 view(s) of the foot. COMPARISON: October 30, 2018 FINDINGS: There is no evidence of osseous or articular abnormality seen. A fracture or dislocation is not noted. Tiny plantar heel spur noted. No soft tissue swelling RAD/Foot min 3 Views IMPRESSION: Negative study except for tiny plantar heel spur unchanged since October 30, 2018 Electronically Signed: Anusha Carpio, at 11:31 EST Tel , Service support ,
== END ==
PROVIDERS: Family Provider Internal Medicine; PCP Internal Medicine; Referring Provider Internal Medicine; Visit Provider Internal Medicine
DX: M79.671 Pain in right foot (principal)
CPT/HCPCS: 73630

== ENCOUNTER → 2019-07-25 06:33 | Outpatient (CLI) | payer BC, OTHER, SELFPAY ==
--- NOTE | 2019-07-25 06:49 | MRI_ITS ---
STUDY: MRI RIGHT MIDFOOT REASON FOR EXAM: Female, 58 years old. Foot pain TECHNIQUE: Standardized fat and water weighted pulse sequences were obtained in all 3 orthogonal planes. COMPARISON: X-ray 07/04/2019 FINDINGS: Normal talonavicular articulation. Normal calcaneocuboid articulation. Normal navicular-cuneiform articulations. Normal intercuneiform articulations. Normal first tarsometatarsal articulation. Normal Lisfranc ligament. Normal second and third tarsometatarsal articulations. Normal cuboid fourth and cuboid fifth tarsometatarsal articulation. Healing fracture of the distal shaft of the third metatarsal bone consistent with a healing fatigue (stress) fracture. Normal tibialis anterior tendon. Normal extensor hallucis longus tendon. Normal extensor digitorum longus tendons. Normal peroneus longus tendon and distal insertion. Normal peroneus brevis tendon and distal insertion. Normal intrinsic muscles of the mid and forefoot region. Normal extensor digitorum brevis muscle. Normal subcutis adipose space. MRI/Lower Ext No Joint W/WO Cont IMPRESSION: Healing fatigue (stress) fracture of the distal shaft of the third metatarsal bone. Electronically Signed: Silvano Jordan MD at 9:02 EST Tel , Service support ,
== END ==
PROVIDERS: Family Provider Internal Medicine; PCP Internal Medicine; Referring Provider Internal Medicine; Visit Provider Internal Medicine
DX: M79.671 Pain in right foot (principal)
CPT/HCPCS: 73720; A9575

== ENCOUNTER → 2019-07-27 11:21 | Outpatient (CLI) | payer BC, OTHER, MEDICARE, SELFPAY ==
[2019-07-27 14:24] LABS: T4 Free Direct 1.28 ng/dL (0.76-1.46)
== END ==
PROVIDERS: Family Provider Internal Medicine; PCP Internal Medicine; Referring Provider Nurse Practitioner Adult Health; Visit Provider Nurse Practitioner Adult Health
DX: E03.8 Other specified hypothyroidism (principal)
CPT/HCPCS: 36415; 84439; 84443

== ENCOUNTER 2019-10-11 10:30 | Outpatient (RCR) | payer BC, OTHER, MEDICARE, SELFPAY ==
--- NOTE | 2019-07-17 14:04 | HP.PTEVAL_ITS ---
Patient's Visit Information VIOLETA HENNING is a 58 year old F referred to Physical Therapy by YO CASTANEDA with a diagnosis of S/P LUMBAR MICRO DISCECTOMY. Date of Evaluation: 07/17/19 Physical Therapist: Narda Mckeon PT, Cert MDT - Visit Plan Frequency: 2-3x /Week Duration: 4-6 Weeks Plan: *RECENT RIGHT FOOT INJURY - NO EXERCISE RIGHT FOOT*. AQUATIC THERAPY FOR POSTURE CORRECTION/STRENGTHENING, INSTRUCTION IN APPROPRIATE BODY MECHANICS AND ACTIVITY MODIFICATIONS. DLS STARTING WITH A NEUTRAL SPINE PROGRESSING ROM TOLERATED. BENJI LE ROM, STRETCHING AND STRENGTHENING. HEP INSTRUCTION. *MINIMAL LIFTING > 5 LBS, BENDING, PUSHING, PULLING, TWISTING AND OVER HEAD EXTENSION. - Subjective Findings: Work/Leisure: UNEMPLOYEED. Disability: SSI DISABILITY. RA, BLIND IN LEFT EYE, JUVINILE ARTHRITIS. Present symptoms: S/P LUMBAR MICRODISCECTOMY 05/18/[address] JUSTA PINEDO. DRAMATIC WEAKNESS ON LLE. MILD LOW BACK PAIN, INTERMITTENT RIGHT LE NUMBESS FROM KNEE DOWN. NO LLE SX'S NOW EXCEPT WEAKNESS - VERY WEAK. ALSO HAVING RIGHT FOOT PAIN STARTING IN JUNE FOR NO APPARENT REASON. DR. KHANNA HAD RIGHT FOOT X-RAY - NORMAL. RIGHT BOOT X 3 WEEKS. GETTING BETTER. MAY HAVE MRI. Present since: APR 2019. Pain Scale: WORST 6/10, LEAST 2/10. Currently: 4/10. Commenced as a result of: LIFTING GRANDSON. Symptoms at onset: LOW BACK AND LEFT BUTTOCK. Worse: BEING LOP SIDED WITH WALKING, SQUATTING, TRYING TO CLIMB STAIRS, PROLONGED STANDING, TRYING TO ROLL OVER IN BED. Better: HEAT OR COLD COMPRESSES, SUPINE LYING, FREQUENT CHANGE OF POSTION. Disturbed sleep: YES. Previous history/Previous treatment: UNREMARKABLE. Coughing/sneezing/straining: POSITIVE. Gait: PATIENT REPORTS HER WALKING WAS PRETTY GOOD UNTIL HER RIGHT FOOT STARTED HURTING. STATES SHE GETS VERY FRIGHTENED SHE IS GOING TO FALL DUE TO LLE BEING SO WEAK AND RIGHT FOOT BEING HURT. Difficulty initiating urinatin: NO. Accidents: NO. Unexplained weight loss: NO. Imaging: RIGHT FOOT X-RAY. NO BACK IMAGING SINCE BACK SURGERY. PMH: RA, TYPE 1 DIABETES, OSTEOPOROSIS, NEUROPATHY. Recent major surgery: ACDF NOVEMBER 2018. OTHER: *PATIENT REPORTS HER SURGEON ADVISED HER AGAINST ANY SIGNIFICANT LIFTING AT ALL RESIDENTIAL. - Objective Sitting/Standing Posture: FAIR. Lordosis: DECREASED. Lateral shift: NO. Relevant shift: N/A. Active Correction of posture: NE. Other Observations: ANTALGIC GAIT INTO PT LIMPING ON RIGHT AND LEFT LE'S. DECREASED CADANCE. DECREASED BENJI STRIDE LENGTH - QUICK SHORT STEPS. REPORTS THAT TODAY IS THE FIRST DAY SHE IS OUT WALKING IN A REGULAR SHOE SINCE HURTING HER RIGHT FOOT. Motor deficit: RIGHT HIP 4-/5, KNEE 4/5, ANKLE - NT (FULL ACTIVE DORSI AND PLANTAR ROM). LEFT HIP 3-/5, KNEE 3+/5, ANKLE 5/5. Sensory deficit: NO. ROM deficit: TIGHT BENJI HS'S. Reflexes: 1/2 BENJI LE'S. Dural Signs: POSITIVE BENJI LE'S. Lumbar mvmt loss: NT. Core strength: POOR. Palpation: INCISION LOOKS GOOD WITHOUT ANY SIGNS OF INFECTION. - Goals Goal 1:: DECREASE C/O LBP AND LLE WEAKNESS Goal Time Frame: 4-6 Weeks Goal 2:: IMPROVE PERSONAL CARE, LIFTING, WALKING, SITTING, STANDING, SLEEP, SOCIAL LIFE, TRAVEL, AND HOMEMAKING. Goal Time Frame: 4-6 Weeks Goal 3:: INSTRUCT IN PROPHYLAXIS Goal Time Frame: 4-6 Weeks - Rehabilitation Potential Rehabilitation Potential: Fair - Anticipated Interventions Patient/Client Instruction: Educate patient on: Condition, Plan of Care, Risk Factors, Benefits of Fitness Program For the Purpose of:: To improve self management Therapeutic Exercise to Include: Strength training, Body mechanics, Postural training, Flexibilty training, In an aquatic setting, Dynamic Lumbar Stabilization For the Purpose of:: To decrease pain, To increase ROM, To improve muscle performance and motor function, To increase tolerance to activity/condition/position, To improve ability of physical actions for ho me/community/work/leisure Thank you for the opportunity to evaluate your patient. For Medicare and Medicare HMO plans, please review the plan of care and approve it. It will need to be FAXED BACK to us at [phone] for Medicare purposes. For Medicare only, by signing this I certify the plan of care. Please let me know if there are questions or concerns regarding this plan of care. Physician Signature: Date:
--- NOTE | 2019-09-11 11:39 | HP.PTREVAL ---
YO CASTANEDA, It has been my pleasure to treat VIOLETA HENNING over the last 5 visits for S/P LUMBAR MICRO DISCECTOMY. Please see the progress note below for an update on the physical therapy plan of care! Subjective: PATIENT REPORTS SHE STOPPED THERAPY DUE TO HAVING A FOOT FRACTURE. STATES HER FOOT ORTHO DOC RELASED HER TO RESUME PT FOR HER BACK NOW. STATES SHE WAS ONLY ALLOWED TO BEAR WEIGHT NO HER FOOT IN A BOOT FOR 7 WEEKS. HAS COMPLETELY WEANED OUT OF THE BOOT AT THIS POINT. PATIENT REPORTS SHE WANTS TO RESUME WATER PT AND SHE REALLY FEELS THE WATER IS THE BEST FORM OF EX FOR HER. STATES HER FOOT FX'D FOR NO APPARENT REASON. PATIENT REPORTS ALL OF HER LEG SX'S ARE ABOUT THE SAME OR BETTER SINCE FIRST PT VISIT. DOES FEEL A LITTLE MORE RIGHT LB SINCE WALKING IN BOOT SO LONG THOUGH. Objective/Function: PATIENT WAS SEEN TODAY FOR RE-ASSESSMENT OF PROGRESS TOWARD THE SET PT GOALS AND THE NEED FOR FURTHER PHYSICAL THERAPY VS READINESS FOR DISCHARGE. UPON EXAM TODAY: ANTALGIC GAIT INTO PT LIMPING ON RIGHT AND LEFT LE'S. DECREASED CADANCE. DECREASED BENJI STRIDE LENGTH - QUICK SHORT STEPS. REPORTS THAT SHE HAS BEEN BACK IN REGULAR SHOES FOR ABOUT 10 DAYS. C/O LBP WHEN TRANSITIONING FROM SIT TO STAND AND UE ASSIST NEEDED. Motor deficit: RIGHT HIP 4/5, KNEE 5/5, ANKLE - DORSI FLEX AT LEAST 4/5 BUT TESTED CAREFULLY (FULL ACTIVE DORSI AND PLANTAR ROM). LEFT HIP 3+/5, KNEE 4-/5, ANKLE 5/5. Sensory deficit: NO. ROM deficit: TIGHT BENJI HS'S. Reflexes: NT. Dural Signs: POSITIVE BENJI LE'S LEFT > RIGHT. Lumbar mvmt loss: FLEX - MOD. EXT - SANJAY. RIGHT SG - SANJAY. LEFT SG - MOD. PATIENT'S BACK ROM MVMTS ARE SLOW AND GUARDED AND PATIENT HAS C/O INCREASED PAIN WITH LUMBAR ROM TESTING ALL PLANES. Core strength: POOR. Palpation: INCISION LOOKS GOOD WITHOUT ANY SIGNS OF INFECTION. NO ACUTE LUMBOSACRAL TENDERNESS BUT PARASPINALS ARE REALLY TIGHT. Plan Plan: AQUATIC THERAPY FOR PAIN RELEIF, POSTURE CORRECTION/STRENGTHENING, INSTRUCTION IN APPROPRIATE BODY MECHANICS AND ACTIVITY MODIFICATIONS. DLS STARTING WITH A NEUTRAL SPINE PROGRESSING ROM TOLERATED. BENJI LE ROM, STRETCHING AND STRENGTHENING. HEP INSTRUCTION. Goals Goal 1:: DECREASE C/O LBP AND LLE WEAKNESS Goal Time Frame: 4-6 Weeks Goal 2:: IMPROVE PERSONAL CARE, LIFTING, WALKING, SITTING, STANDING, SLEEP, SOCIAL LIFE, TRAVEL, AND HOMEMAKING. Goal Time Frame: 4-6 Weeks Goal 3:: INSTRUCT IN PROPHYLAXIS Goal Time Frame: 4-6 Weeks Anticipated Interventions Patient/Client Instruction: Educate patient on: Condition, Plan of Care, Risk Factors, Benefits of Fitness Program For the Purpose of:: To improve self management Therapeutic Exercise to Include: Strength training, Body mechanics, Postural training, Flexibilty training, In an aquatic setting, Dynamic Lumbar Stabilization For the Purpose of:: To decrease pain, To increase ROM, To improve muscle performance and motor function, To increase tolerance to activity/condition/position, To improve ability of physical actions for home/community/work/leisure Please do not hesitate to contact me at [phone] by phone or if you have questions or concerns regarding this new plan of care! Sincerely, Narda Mckeon, PT, Cert MDT
--- NOTE | 2019-10-11 11:17 | HP.PTDCSUM ---
HP - PT D/C Summary It has been my pleasure to treat VIOLETA HENNING under orders from YO CASTANEDA, for the diagnosis of S/P LUMBAR MICRO DISCECTOMY for a total of 12 visit(s). Discharge Date: 10/11/19 Please see the following information for a summary of their discharge status. - Subjective Subjective: S/P LUMBAR MICRODISCECTOMY MAY 18 2019. NO LIFTING > 10 LBS. PATIENT REPORTS WOULD LIKE TO TRY TO CONTINUE WATER EX INDEP'LY WITH WHAT SHE HAS LEARNED FROM US AT THIS POINT. SHE IS IN THE PROCESS OF DECIDING WHICH FACILITY TO USE. SHE REPORTS SHE IS GETTING BETTER SLOWLY AND FEELS STRONGER. - Pain R foot Pain Intensity (Out of 10): 0 Lumbar Spine Pain Intensity (Out of 10): 3 B [place]ould[place] Pain Intensity (Out of 10): 2 - Overall Improvement % Improvement: 35 - Objective Objective/Function: PATIENT WAS SEEN TODAY FOR RE-ASSESSMENT OF PROGRESS TOWARD THE SET PT GOALS AND THE NEED FOR FURTHER PHYSICAL THERAPY VS READINESS FOR DISCHARGE. UPON EXAM TODAY: PATIENT DEMONSTRATES INDEP GAIT AND TRANSFERS BUT WITH DECREASED CADANCE AND WITH CAUTION. MVMTS IN GENERAL ARE SLOW AND GUARDED. Motor deficit: RIGHT HIP 4/5, KNEE 4/5, ANKLE 4/5. LEFT HIP 4-/5, KNEE 4/5, ANKLE 5/5. Sensory deficit: NO. ROM deficit: MILDLY TIGHT BENJI HS'S. Dural Signs: MILD'LY POSITIVE BENJI LE'S. Lumbar mvmt loss: FLEX MOD. EXT SANJAY. RSG MOD. LSG MOD. Core strength: POOR - Goals Goal 1:: DECREASE C/O LBP AND LLE WEAKNESS Goal Progress: Goal Met Goal 2:: IMPROVE PERSONAL CARE, LIFTING, WALKING, SITTING, STANDING, SLEEP, SOCIAL LIFE, TRAVEL, AND HOMEMAKING. Goal Progress: Progressing Goal 3:: INSTRUCT IN PROPHYLAXIS Goal Progress: Goal Met - Plan Plan: D/C TO INDEP WATER EX AT PATIENTS REQUEST. - D/C Information If there are questions or concerns regarding this patient's physical therapy, please feel free to call me at [phone]. Thank you for the referral of this patient. Sincerely, Narda Mckeon, PT, Cert MDT
== END 2019-10-11 19:00 | disposition home or self-care (01) ==
LOC: PT 10:30
PROVIDERS: Family Provider Internal Medicine; PCP Internal Medicine
DX: Z09 Encounter for follow-up examination after completed treatment for conditions other than malignant neoplasm (principal); Z98.890 Other specified postprocedural states
CPT/HCPCS: 97113; 97162; 97164; 97530

== ENCOUNTER → 2019-11-05 12:08 | Outpatient (CLI) | payer OTHER, MEDICARE, SELFPAY ==
[2019-11-05 15:10] LABS: T4 Free Direct 1.08 ng/dL (0.76-1.46)
== END ==
PROVIDERS: PCP Internal Medicine; Referring Provider Nurse Practitioner Adult Health; Visit Provider Nurse Practitioner Adult Health
DX: E03.8 Other specified hypothyroidism (principal)
CPT/HCPCS: 36415; 84439; 84443

== ENCOUNTER → 2020-01-14 | Outpatient (CLI) | payer OTHER, MEDICARE, SELFPAY ==
[2020-01-14 15:03] LABS: Absolute Lymphocyte Count 1.03 X10^3/uL (0.83-4.51); Absolute Neutrophil Count 2.5 X10^3/uL (2.0-7.7); Basophil# 0.03 X10^3/uL; Basophil% 0.7 % (0-1); Eosinophil# 0.16 X10^3/uL; Eosinophils% 3.8 % (0-5); Hematocrit 40.4 % (37-47); Lymphocyte # 1.03 X10^3/ul (4.0); Lymphocyte % 24.3 % (19-41); Mean Corp Hgb Conc 32.2 g/dL (32-36); Mean Corpuscular Hgb 32.2 pg (27.0-32.0); Mean Platelet Vol. 11.2 fl (6.2-12.0); Monocyte# 0.49 X10^3/uL; Monocyte% 11.6 % (0-10); NRBC Flagged by Analyzer 0 % (0-5); Neutrophil # 2.51 X10^3/uL (2.7-7.7); Neutrophil % 59.4 % (47-70); Platelet Count 175 K/mm3 (150-450); RBC Distribution Width CV 13.2 % (11.6-14.6); RBC Distribution Width SD 48.5 fl (35.1-43.9); Red Blood Count 4.04 M/mm3 (4.2-5.4); White Blood Count 4.2 K/mm3 (4.4-11.0)
[2020-01-14 15:18] LABS: ALB/GLOB Ratio 1.2 RATIO (0.9-2.4); AST(SGOT) 29 U/L (15-37); Alanine Aminotransfer ALT/SGPT 38 U/L (13-56); Albumin, Serum 3.7 g/dL (3.2-5.0); Alkaline Phosphatase 112 U/L (45-117); Anion Gap 8 (5-15); BUN 16 mg/dL (7-18); BUN/Creat Ratio 21.2 RATIO (10-20); CRP < 2.90 mg/L (0.0-3.0); Calcium,Total 9.2 mg/dL (8.5-10.1); Chloride 102 mmol/L (98-107); Creatinine, Serum 0.75 mg/dL (0.55-1.02); EST Glomerular Filtration Rate 83 mL/min (>60); Est Glom Filt Rate - Afr Amer 101 mL/min (>60); Globulin 3.1 g/dL (2.2-4.2); Glucose 115 mg/dL (74-106); Potassium 4.1 mmol/L (3.5-5.1); Protein, Total 6.8 g/dL (6.4-8.2); Sodium Level 140 mmol/L (136-145)
[2020-01-14 15:29] LABS: Erythrocyte Sedimentation Rate 1 mm/hr (0-30)
[2020-01-17 16:08] LABS: Alkaline Phosphatase, Serum 106 IU/L (39-117); Bone Fraction 20 % (14-68); Liver Fraction 77 % (18-85)
[2020-01-17 18:25] LABS: Intestinal Fraction 4 % (0-18)
== END | disposition home or self-care (01) ==
LOC: MTLAB 12:23
PROVIDERS: PCP Internal Medicine; Referring Provider Internal Medicine Rheumatology; Visit Provider Internal Medicine Rheumatology
DX: M05.79 Rheumatoid arthritis with rheumatoid factor of multiple sites without organ or systems involvement (principal); M81.0 Age-related osteoporosis without current pathological fracture; G89.29 Other chronic pain; M16.0 Bilateral primary osteoarthritis of hip; M19.011 Primary osteoarthritis, right shoulder; M19.012 Primary osteoarthritis, left shoulder; Z79.899 Other long term (current) drug therapy
CPT/HCPCS: 36415; 80053; 82306; 84075; 84080; 85025; 85652; 86140

== ENCOUNTER → 2020-02-05 15:32 | Outpatient (CLI) | payer OTHER, MEDICARE, SELFPAY ==
--- NOTE | 2020-02-05 15:35 | BI_ITS ---
MAMMOGRAPHY - BILATERAL SCREENING REASON FOR EXAM: Female, 59 years old. Routine annual screening examination. PERTINENT HISTORY: Aunt with breast cancer. Remote bilateral needle biopsies. TECHNIQUE: Digital bilateral breast meño (3D mammographic acquisition) in the CC and MLO projections. 2-D mediolateral oblique (MLO) and craniocaudad (CC) views of both breasts were obtained. CAD: Full Field Digital Mammography with Computer Added Detection was performed. COMPARISON: Comparison is made with prior examination dated November 02, 2018 and November 01, 2017. FINDINGS: Breast Composition: The breasts are heterogeneously dense, which may obscure small masses. There are no dominant masses or suspicious calcifications. Stable appearance of the N 0.1 cm x 1.2 cm nodular density in the deep slightly upper lateral aspect of the right breast. A tissue clip marker is seen within the nodule. This is unchanged. Stable benign-appearing bilateral axillary. No other significant abnormalities are identified. There has been no significant change since the prior study. BI/SCREEN MAMM (CAD) W/MEÑO BILAT IMPRESSION: Stable bilateral screening mammogram. Yearly follow-up mammogram recommended. (A) ASSESSMENT CATEGORY: BIRADS Category 2: Benign. A letter regarding these results will be sent to the patient by the facility within 30 days. Approximately 10% of breast cancers are not detected by mammography. A normal mammogram should not delay biopsy of a clinically suspicious abnormality. [id number] Electronically Signed: Salvador Pike, at 8:04 EDT , Service support ,
== END ==
PROVIDERS: PCP Internal Medicine; Referring Provider Internal Medicine; Visit Provider Internal Medicine
DX: Z12.31 Encounter for screening mammogram for malignant neoplasm of breast (principal)
CPT/HCPCS: 77063; 77067

== ENCOUNTER → 2020-02-19 11:23 | Outpatient (CLI) | payer OTHER, MEDICARE, SELFPAY ==
--- NOTE | 2020-02-19 11:50 | RAD_ITS ---
STUDY: X-RAY - RIGHT SHOULDER REASON FOR EXAM: Female, 59 years old. right shoulder pain, also ATTN ac joint TECHNIQUE: 4 view(s) of the shoulder. COMPARISON: Previous study of 08/25/2018 FINDINGS: Normal glenohumeral articulation. There mild degenerative changes of the right AC joint. Normal acromion. Normal humeral head and visualized proximal humerus. The soft tissue structures are unremarkable. Normal visualized pulmonary apex. RAD/Shoulder min 2 Views IMPRESSION: Mild degenerative changes of the right AC joint. Findings are similar to the previous study. Electronically Signed: Ed Mirza MD at 18:55 EDT , Service support ,
== END ==
LOC: HPRAD 11:24 → MTRAD 11:43
PROVIDERS: PCP Internal Medicine; Referring Provider Internal Medicine; Visit Provider Internal Medicine
DX: M25.511 Pain in right shoulder (principal)
CPT/HCPCS: 73030

== ENCOUNTER → 2020-02-20 11:06 | Outpatient (CLI) | payer OTHER, MEDICARE, SELFPAY ==
[2020-02-20 13:21] LABS: Vitamin B12 1426 pg/mL (211-911); Vitamin D,25 Hydroxy 64.5 ng/mL
[2020-02-20 13:28] LABS: Hemoglobin A1c 6.1 % (3.8-5.6)
[2020-02-20 14:14] LABS: AST(SGOT) 30 U/L (15-37); Alanine Aminotransfer ALT/SGPT 41 U/L (13-56); Anion Gap 8 (5-15); BUN 14 mg/dL (7-18); BUN/Creat Ratio 19.9 RATIO (10-20); Calcium,Total 8.8 mg/dL (8.5-10.1); Chloride 100 mmol/L (98-107); Cholesterol 211 mg/dL (200); EST Glomerular Filtration Rate 90 mL/min (>60); Est Glom Filt Rate - Afr Amer 109 mL/min (>60); Glucose 116 mg/dL (74-106); High Density Lipoprotein 114 mg/dL; Potassium 4.2 mmol/L (3.5-5.1); Sodium Level 137 mmol/L (136-145); T4 Free Direct 1.15 ng/dL (0.76-1.46); Thyroid Stim Hormone (TSH) 7.06 uIU/mL (0.358-3.74); Triglycerides 36 mg/dL; Very Low Density Lipoprotein 7 mg/dL (5-40)
[2020-02-20 16:34] LABS: Microalbumin,Random Urine 8.6 mg/L (NO RANGE EST.)
== END ==
PROVIDERS: PCP Internal Medicine; Referring Provider Internal Medicine Endocrinology, Diabetes & Metabolism; Visit Provider Internal Medicine Endocrinology, Diabetes & Metabolism
DX: E03.8 Other specified hypothyroidism (principal); E53.9 Vitamin B deficiency, unspecified; E10.65 Type 1 diabetes mellitus with hyperglycemia; E55.9 Vitamin D deficiency, unspecified
CPT/HCPCS: 36415; 80048; 80061; 82043; 82306; 82607; 83036; 84439; 84443; 84450; 84460

== ENCOUNTER → 2020-03-13 09:09 | Outpatient (CLI) | payer OTHER, MEDICARE, SELFPAY ==
--- NOTE | 2020-03-13 09:10 | US_ITS ---
STUDY: THYROID ULTRASOUND REASON FOR EXAM: Female, 59 years old. MULTINODULAR GOITER -- ON SYNTHROID TECHNIQUE: Ultrasound evaluation of the thyroid was performed with real-time and static gonzales-scale imaging. COMPARISON: Comparison is made with prior study dated 02/20/2019. FINDINGS: RIGHT LOBE: The right lobe of the thyroid gland measures 4.5 cm x 1.3 cm x 1.0 cm. There is a heterogeneous echotexture. There are no demonstrated solid, cystic or complex lesions. LEFT LOBE: The left lobe of the thyroid gland measures 4.3 cm x 1.2 cm x 1.0 cm. There is a heterogeneous echotexture. There are no demonstrated solid, cystic or complex lesions. ISTHMUS: The isthmus measures 2.0 mm. The regional lymph nodes are normal. US/Thyroid IMPRESSION: Heterogeneous echotexture of both lobes of the thyroid gland. Stable examination. Electronically Signed: Salvador Pike, at 12:47 EDT , Service support ,
== END ==
PROVIDERS: PCP Internal Medicine; Referring Provider Internal Medicine; Visit Provider Internal Medicine
DX: E04.2 Nontoxic multinodular goiter (principal)
CPT/HCPCS: 76536

== ENCOUNTER → 2020-03-18 11:09 | Outpatient (CLI) | payer OTHER, MEDICARE, SELFPAY ==
--- NOTE | 2020-03-18 11:16 | RAD_ITS ---
STUDY: X-RAY - UNILATERAL RIBS ( RIGHT ) WITH CHEST REASON FOR EXAM: Female, 59 years old. felt and heard a pop in right anterior ribs while twisting TECHNIQUE - RIBS: 4 view(s) of the ribs. TECHNIQUE - CHEST: Single PA view of the chest. COMPARISON: 06/21/2018 FINDINGS - RIBS: Normal visualized ribs without a demonstrated fracture. FINDINGS - CHEST: Status post anterior cervical discectomy and fusion lower cervical spine appear The lungs are clear and expanded. There is no demonstrated pleural abnormality. Normal size heart. Normal mediastinum and rio. Normal visualized pulmonary arteries. Normal visualized aortic arch and descending thoracic aorta. Normal visualized thoracic spine. Normal visualized ribs, clavicles, and shoulders. There is no demonstrated abnormality of the visualized soft tissue structures of the upper abdomen. RAD/Ribs Uni Min 3V w/PA Chest IMPRESSION: RIBS: Normal x-ray examination of the ribs. CHEST: Normal x-ray examination of the chest. Electronically Signed: Silvano Jordan MD at 12:02 EDT Tel , Service support ,
== END ==
PROVIDERS: PCP Internal Medicine; Referring Provider Internal Medicine; Visit Provider Internal Medicine
DX: R07.81 Pleurodynia (principal)
CPT/HCPCS: 71101

== ENCOUNTER 2020-03-27 11:30 | Outpatient (RCR) | payer OTHER, MEDICARE, SELFPAY ==
--- NOTE | 2020-03-27 12:05 | HP.PTDCSUM ---
It has been my pleasure to treat VIOLETA HENNING referred by Dr. Karin Sgeura DO, with the diagnosis of RIGHT SHOULDER PAIN,LEG WEAKNESS LEFT for a total of 8 visit(s). Discharge Date: 03/27/20 Please see the following information for a summary of their discharge status. Subjective: Doing good with ex's right shoulder and leg strengthneing. Overall feeling better. Planning to leave for [place] Right Neck Pain Intensity (Out of 10): 0 Right Shoulder Pain Intensity (Out of 10): 1 Bilateral Back Pain Intensity (Out of 10): 1 R Ribs Pain Intensity (Out of 10): 0 LEs Pain Intensity (Out of 10): 0 % Improvement: 90 Objective/Function: POSTURE: mild foward posture. CERVICAL ROM: flexion min ,rotation /lateral flexion mod ,extension mod loss. MMT: quads/hams 4/5,4-/5,ankle 4/5. LUMBAR ROM: flexion mod,extension severe Goal 1:: Patient to be I with Aquatic therapy Goal Progress: Goal Met Goal 2:: Patient to decrease right arm and left leg pain by 50% or > to improve function. Goal Progress: Goal Met Goal 3:: Patient improve cervical and lumbar ROM for function of recovery Goal Progress: Goal Met Goal 4:: Patient to improve strength BUE and left leg by 1/2 grade to improve function. Goal Progress: Goal Met Goal 5:: Patient to improve neck owestry score by 5 points or> to improve QOL Goal Progress: Goal Met Plan: D/C to [facility] Discharge Comments: d/c If there are questions or concerns regarding this patient's physical therapy, please feel free to call me at [phone]. Thank you for the referral of this patient. Sincerely, Melquiades Salmeron, PT, Cert MDT, OCS
--- NOTE | 2020-04-01 08:29 | HP.PTEVAL ---
Patient's Visit Information VIOLETA HENNING is a 59 year old F referred to Physical Therapy by Dr. Karin Segura DO with a diagnosis of RIGHT SHOULDER PAIN,LEG WEAKNESS LEFT. Date of Evaluation: 02/26/20 Physical Therapist: Melquiades Salmeron, PT, Cert MDT, OCS - Visit Plan Frequency: 2x /Week Duration: 4 Weeks Plan: D/C to [facility] - Subjective This 59 y/o female presents to physical therapy with left weakness leg and right shoulder pain. Patient has had cervical surgery about one year November 17 2018 with cadever disc C4-6 aanterior and lumbar microdisectomy May 14 2019 at [facility] . Patint has prior PT -aquatic. Pateint was on MEDS for osteoporosis thus had adeverse reactions. Also ,tried several adverse raection also had jaw issues. Patient has RA taking injection. Patient conts to have pain in cervical and right shoulder UT and right shoulder and unable to sleep on right side . Patient conts to have parathesia in right hand,Allevating factors rest. 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 Patient patient affects inability to perform housework tasks.Dr Segura did x-rays shoulder. Denies parathesia/tingling. Denies RAMON /nuasea/tinnnutis. Location symmtrical lumbar and mainly is weakness. Aggravating factors bending,lifting ,stairs difficulty,unable to squat,sitting.Alleviating factors rest. Patient has difficulty with sleeping because pain and numbess in hands .Coughing/sneezing -. Bowel/bladder -. Patient condition affects QOL and function.Goal : get stronger manage pain. SOCAIL: . VOACTION:retired - Pain Right Neck Pain Intensity (Out of 10): 0 Pain Intensity Range: 10 Comment: L-sdied, with movement Right Shoulder Pain Intensity (Out of 10): 1 Pain Intensity Range: 10 Comment: more with overhead reach Bilateral Back Pain Intensity (Out of 10): 1 Pain Intensity Range: 10 Comment: a bit better R Ribs Pain Intensity (Out of 10): 0 Comment: 2/10 with movement LEs Pain Intensity (Out of 10): 0 Comment: BLAT - Objective POSTURE:mild foward posture. NEURO: intact reflexes C5-6-7 2/3,L3-4,L4-5,L5-S1 2/3,denies parathesia/tingling. PALAPTION: tender UT/levators,L-S/SI. GAIT: reciprocal pattern. AROM BUE: WFL. MMT: BUE grossly 4-/5,quads/hams 4-/5 hip flexion right 4-/5,left 3+/5,ankle 4/5. CERVICAL ROM: flexion mod loss,extension mod loss , rotation to right mod loss,left min/mod loss. LUMBAR ROM: flexion min loss,mod loss extension,side glides mod loss. FLEXABLITY : hams min tight. 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 SYMMTRIES: align - Special Tests C/S Radiculapathy - Left Upper limb tension test: Negative C/S Radiculapathy - Right Upper limb tension test: Negative C/S Radiculapathy - Left Spurlings: Positive C/S Radiculapathy - Right Spurlings: Negative Sharp Wisam: Negative Vertebral Artery Test: Negative Alar Ligament Test: Negative L/S Slump test left side: Negative L/S Slump test right side: Negative - Goals Goal 1:: Patient to be I with Aquatic therapy Goal Time Frame: 4-6 Weeks Goal 2:: Patient to decrease right arm and left leg pain by 50% or > to improve function. Goal Time Frame: 4-6 Weeks Goal 3:: Patient improve cervical and lumbar ROM for function of recovery Goal Time Frame: 4-6 Weeks Goal 4:: Patient to improve strength BUE and left leg by 1/2 grade to improve function. Goal Time Frame: 4-6 Weeks Goal 5:: Patient to improve neck owestry score by 5 points or> to improve QOL Goal Time Frame: 4-6 Weeks - Rehabilitation Potential Physical Therapy Diagnosis: This patient has h/o lumbar surgery disectomy and cervical fusion with cadaver disc thus other comorbitoes contribute to patient condtion with RA and osteoporosis . Pateint has pain and weakness right arm and left lower leg thus benifit from skilled PT Rehabilitation Potential: Good - Anticipated Interventions Patient/Client Instruction: Educate patient on: Condition, Plan of Care For the Purpose of:: To decrease pain, To increase ROM, To improve muscle performance and motor function, To improve ability to perform ADL's, To increase tolerance to activity/condition/position, To improve ability of physical actions for home/community/work/leisure, To improve health of tissue, To decrease soft tissue restriction, To increase flexibility/ROM, To reduce risk of recurrence, To improve ability to perform tasks related to life management Therapeutic Exercise to Include: Strength training, Postural training, Flexibilty training, In an aquatic setting, Active ROM, Dynamic Lumbar Stabilization For the Purpose of:: To decrease pain, To increase ROM, To improve muscle performance and motor function, To improve ability to perform ADL's, To increase tolerance to activity/condition/position, To improve ability of physical actions for home/community/work/leisure, To improve health of tissue, To decrease soft tissue restriction, To increase flexibility/ROM, To reduce risk of recurrence, To improve ability to perform tasks related to life management Thank you for the opportunity to evaluate your patient. For Medicare and Medicare HMO plans, please review the plan of care and approve it. It will need to be FAXED BACK to us at [phone] for Medicare purposes. For Medicare only, by signing this I certify the plan of care. Please let me know if there are questions or concerns regarding this plan of care. Physician Signature: Date:
== END 2020-03-27 19:00 | disposition home or self-care (01) ==
LOC: PT 11:30
PROVIDERS: PCP Internal Medicine; Referring Provider Internal Medicine; Visit Provider Internal Medicine
DX: M25.511 Pain in right shoulder (principal); R29.898 Other symptoms and signs involving the musculoskeletal system
CPT/HCPCS: 97113; 97162; 97530

== ENCOUNTER → 2020-05-08 11:57 | Outpatient (CLI) | payer OTHER, MEDICARE, SELFPAY ==
[2020-05-08 15:37] LABS: Alkaline Phosphatase 116 U/L (45-117); T4 Free Direct 1.44 ng/dL (0.76-1.46)
== END ==
PROVIDERS: Nurse Practitioner Adult Health; PCP Internal Medicine; Referring Provider Internal Medicine; Visit Provider Internal Medicine
DX: R74.8 Abnormal levels of other serum enzymes (principal); E03.8 Other specified hypothyroidism
CPT/HCPCS: 36415; 84075; 84439; 84443

== ENCOUNTER → 2020-05-22 11:40 | Outpatient (CLI) | payer OTHER, MEDICARE, SELFPAY ==
--- NOTE | 2020-05-22 11:36 | RAD_ITS ---
STUDY: X-RAY CHEST REASON FOR EXAM: Female, 59 years old. upper back pain, chest pain TECHNIQUE: PA and lateral views of the chest. COMPARISON: 03/18/2020 FINDINGS: Status post anterior cervical discectomy and fusion lower cervical spine. The lungs are clear and expanded. There is no demonstrated pleural abnormality. Normal size heart. Normal mediastinum and rio. Normal visualized pulmonary arteries. Normal visualized aortic arch and descending thoracic aorta. Normal visualized thoracic spine. Normal visualized ribs, clavicles, and shoulders. There is no demonstrated abnormality of the visualized soft tissue structures of the upper abdomen. RAD/Chest PA and Lateral IMPRESSION: Normal x-ray examination of the chest. Electronically Signed: Silvano Jordan MD at 16:00 EDT Tel , Service support ,
--- NOTE | 2020-05-22 11:44 | RAD_ITS ---
STUDY: X-RAY - THORACIC SPINE REASON FOR EXAM: Female, 59 years old. upper back pain TECHNIQUE: 3 view(s) of the thoracic spine were obtained. COMPARISON: 03/02/2017 FINDINGS: Normal kyphosis of the thoracic spine. There is no substantial scoliosis. Normal thoracic vertebrae and endplates. Normal disc space heights. The soft tissue structures are unremarkable. RAD/Thoracic Spine 3 Views IMPRESSION: Normal x-ray examination of the thoracic spine. Electronically Signed: Silvano Jordan MD at 15:59 EDT Tel , Service support ,
[2020-05-22 15:25] LABS: Alkaline Phosphatase 123 U/L (45-117)
== END ==
PROVIDERS: PCP Internal Medicine; Referring Provider Internal Medicine; Visit Provider Internal Medicine
CPT/HCPCS: 36415; 71046; 72072; 84075

== ENCOUNTER → 2020-05-28 12:30 | Outpatient (CLI) | payer OTHER, MEDICARE, SELFPAY ==
[2020-05-28 16:21] LABS: Alkaline Phosphatase 134 U/L (45-117)
== END ==
PROVIDERS: PCP Internal Medicine; Referring Provider Internal Medicine; Visit Provider Internal Medicine
DX: R74.8 Abnormal levels of other serum enzymes (principal)
CPT/HCPCS: 36415; 84075

== ENCOUNTER → 2020-06-03 10:46 | Outpatient (CLI) | payer OTHER, MEDICARE, SELFPAY ==
[2020-06-03 12:40] LABS: Hemoglobin A1c 6.5 % (3.8-5.6)
[2020-06-03 12:44] LABS: AST(SGOT) 26 U/L (15-37); Alanine Aminotransfer ALT/SGPT 33 U/L (13-56); Anion Gap 5 (5-15); BUN 13 mg/dL (7-18); BUN/Creat Ratio 16.5 RATIO (10-20); Calcium,Total 8.8 mg/dL (8.5-10.1); Chloride 104 mmol/L (98-107); Cholesterol 172 mg/dL (200); Creatinine, Serum 0.79 mg/dL (0.55-1.02); EST Glomerular Filtration Rate 79 mL/min (>60); Est Glom Filt Rate - Afr Amer 95 mL/min (>60); Glucose 117 mg/dL (74-106); High Density Lipoprotein 89 mg/dL; Potassium 4.1 mmol/L (3.5-5.1); Sodium Level 139 mmol/L (136-145); T4 Free Direct 1.34 ng/dL (0.76-1.46); Thyroid Stim Hormone (TSH) 0.39 uIU/mL (0.358-3.74); Triglycerides 37 mg/dL; Very Low Density Lipoprotein 7 mg/dL (5-40)
[2020-06-03 12:52] LABS: Vitamin B12 901 pg/mL (211-911); Vitamin D,25 Hydroxy 68.6 ng/mL
[2020-06-03 14:17] LABS: Microalbumin,Random Urine 14.3 mg/L (NO RANGE EST.)
== END ==
PROVIDERS: PCP Internal Medicine; Referring Provider Nurse Practitioner Adult Health; Visit Provider Nurse Practitioner Adult Health
DX: E03.8 Other specified hypothyroidism (principal); E53.9 Vitamin B deficiency, unspecified; E55.9 Vitamin D deficiency, unspecified; E10.65 Type 1 diabetes mellitus with hyperglycemia
CPT/HCPCS: 36415; 80048; 80061; 82043; 82306; 82607; 83036; 84439; 84443; 84450; 84460

== ENCOUNTER → 2020-06-12 12:01 | Outpatient (CLI) | payer OTHER, MEDICARE, SELFPAY ==
[2020-06-12 16:09] LABS: Alkaline Phosphatase 131 U/L (45-117)
== END ==
PROVIDERS: PCP Internal Medicine; Referring Provider Internal Medicine; Visit Provider Internal Medicine
DX: R74.8 Abnormal levels of other serum enzymes (principal)
CPT/HCPCS: 36415; 84075

== ENCOUNTER 2020-07-28 11:27 | Outpatient (RCR) | payer OTHER, MEDICARE, SELFPAY ==
[2020-07-08 16:39] LABS: Alkaline Phosphatase 136 U/L (45-117)
[2020-07-28 15:54] LABS: Absolute Lymphocyte Count 1.15 X10^3/uL (0.83-4.51); Absolute Neutrophil Count 4.9 X10^3/uL (2.0-7.7); Basophil# 0.04 X10^3/uL; Basophil% 0.6 % (0-1); Eosinophil# 0.21 X10^3/uL; Hematocrit 41.2 % (37-47); Hemoglobin 13.2 g/dL (12.0-15.0); Lymphocyte # 1.15 X10^3/ul (4.0); Lymphocyte % 16.6 % (19-41); Mean Corpuscular Hgb 30.9 pg (27.0-32.0); Mean Corpuscular Volume 96.5 fL (81-99); Mean Platelet Vol. 11.2 fl (6.2-12.0); Monocyte# 0.55 X10^3/uL; NRBC Flagged by Analyzer 0 % (0-5); Neutrophil # 4.94 X10^3/uL (2.7-7.7); Neutrophil % 71.5 % (47-70); Platelet Count 206 K/mm3 (150-450); RBC Distribution Width CV 12.5 % (11.6-14.6); RBC Distribution Width SD 44.8 fl (35.1-43.9); Red Blood Count 4.27 M/mm3 (4.2-5.4); White Blood Count 6.9 K/mm3 (4.4-11.0)
[2020-07-28 16:07] LABS: Erythrocyte Sedimentation Rate 3 mm/hr (0-30)
[2020-07-28 16:27] LABS: Vitamin D,25 Hydroxy 65.3 ng/mL
[2020-07-30 15:35] LABS: Complement C3 126 mg/dL (82-167)
[2020-07-30 16:21] LABS: Anti-dsDNA Ab <1 IU/mL (0-9)
== END 2020-07-28 18:00 | disposition home or self-care (01) ==
LOC: MTLAB 11:27
PROVIDERS: Internal Medicine Rheumatology; PCP Internal Medicine; Referring Provider Internal Medicine; Visit Provider Internal Medicine
DX: R74.8 Abnormal levels of other serum enzymes (principal); M05.79 Rheumatoid arthritis with rheumatoid factor of multiple sites without organ or systems involvement; M81.0 Age-related osteoporosis without current pathological fracture; M16.0 Bilateral primary osteoarthritis of hip; M48.02 Spinal stenosis, cervical region; M47.816 Spondylosis without myelopathy or radiculopathy, lumbar region
CPT/HCPCS: 36415; 82306; 84075; 85025; 85652; 86140; 86160; 86225

== ENCOUNTER → 2020-07-29 | Outpatient (CLI) | payer OTHER, MEDICARE, SELFPAY ==
[2020-08-01 03:07] LABS: Creatinine, Urine 38.2 mg/dL (Not Estab.); N-Telopeptide, Urine 69 nmol BCE (Not Estab.)
[2020-08-04 09:57] LABS: NTX:Creatinine Ratio, Urine 20 (0-89)
== END | disposition home or self-care (01) ==
LOC: LABSPEC 11:16
PROVIDERS: PCP Internal Medicine; Referring Provider Internal Medicine Rheumatology; Visit Provider Internal Medicine Rheumatology
DX: M05.79 Rheumatoid arthritis with rheumatoid factor of multiple sites without organ or systems involvement (principal); M81.0 Age-related osteoporosis without current pathological fracture; M16.0 Bilateral primary osteoarthritis of hip; M47.816 Spondylosis without myelopathy or radiculopathy, lumbar region; M48.02 Spinal stenosis, cervical region
CPT/HCPCS: 82523

== ENCOUNTER → 2020-08-19 14:08 | Outpatient (CLI) | payer OTHER, MEDICARE, SELFPAY ==
[2020-08-19 18:52] LABS: ALB/GLOB Ratio 1.1 RATIO (0.9-2.4); AST(SGOT) 16 U/L (15-37); Alanine Aminotransfer ALT/SGPT 25 U/L (13-56); Albumin, Serum 3.5 g/dL (3.2-5.0); Alkaline Phosphatase 143 U/L (45-117); Anion Gap 6 (5-15); BUN 15 mg/dL (7-18); BUN/Creat Ratio 17.9 RATIO (10-20); Calcium,Total 8.7 mg/dL (8.5-10.1); Chloride 101 mmol/L (98-107); Creatinine, Serum 0.84 mg/dL (0.55-1.02); EST Glomerular Filtration Rate 74 mL/min (>60); Est Glom Filt Rate - Afr Amer 89 mL/min (>60); Globulin 3.2 g/dL (2.2-4.2); Glucose 255 mg/dL (74-106); Potassium 4.2 mmol/L (3.5-5.1); Protein, Total 6.7 g/dL (6.4-8.2); Sodium Level 136 mmol/L (136-145)
== END ==
PROVIDERS: PCP Internal Medicine; Referring Provider Internal Medicine Rheumatology; Visit Provider Internal Medicine Rheumatology
DX: R74.8 Abnormal levels of other serum enzymes (principal)
CPT/HCPCS: 80053

== ENCOUNTER → 2020-08-29 13:18 | Outpatient (CLI) | payer OTHER, MEDICARE, SELFPAY ==
--- NOTE | 2020-08-29 13:35 | MRI_ITS ---
STUDY: MRI RIGHT SHOULDER REASON FOR EXAM: Right shoulder pain, no specific injury, rheumatoid arthritis. TECHNIQUE: Standardized fat and water weighted pulse sequences were obtained in all 3 orthogonal planes. COMPARISON: Radiographs 08/21/2020. FINDINGS: There is mild supraspinatus and infraspinatus tendinosis (T2 sagittal images 15, 16) without discrete tendon tear. Normal subscapularis tendon. Normal teres minor tendon. Normal supraspinatus muscle. Normal infraspinatus muscle. Normal subscapularis muscle. Normal teres minor muscle. There is a small glenohumeral joint effusion. Normal humeral head and visualized proximal humerus. Normal biceps labral complex. Normal intracapsular long biceps tendon. Normal labrum. Normal capsulo- ligamentous complex. There is acromioclavicular arthrosis with hypertrophic changes abutting the supraspinatus musculotendinous junction (T2 sagittal images 10, 11). There is a Type II morphology (curved), with a neutral orientation. There is a small volume of subacromial-subdeltoid bursal fluid. Normal visualized coracohumeral and coracoacromial ligaments. Normal deltoid muscle. Normal trapezius muscle. MRI/Upper Ext Joint Only(Routine) IMPRESSION: Mild supraspinatus and infraspinatus tendinosis without demonstrated rotator cuff tear. Acromioclavicular arthrosis. Mild subacromial-subdeltoid bursitis. Electronically Signed: Kurt Bales MD at 14:53 EST Tel , Service support ,
== END ==
PROVIDERS: PCP Internal Medicine; Referring Provider Internal Medicine; Visit Provider Internal Medicine
DX: M25.511 Pain in right shoulder (principal)
CPT/HCPCS: 73221

== ENCOUNTER → 2020-09-09 10:29 | Outpatient (CLI) | payer OTHER, MEDICARE, SELFPAY ==
[2020-09-09 12:30] LABS: Vitamin B12 1146 pg/mL (211-911); Vitamin D,25 Hydroxy 68.8 ng/mL
[2020-09-09 12:34] LABS: Hemoglobin A1c 6.5 % (3.8-5.6)
[2020-09-09 12:43] LABS: AST(SGOT) 24 U/L (15-37); Alanine Aminotransfer ALT/SGPT 30 U/L (13-56); Anion Gap 6 (5-15); BUN 11 mg/dL (7-18); Chloride 102 mmol/L (98-107); Cholesterol 169 mg/dL (200); Creatinine, Serum 0.65 mg/dL (0.55-1.02); EST Glomerular Filtration Rate 99 mL/min (>60); Est Glom Filt Rate - Afr Amer 120 mL/min (>60); Glucose 124 mg/dL (74-106); High Density Lipoprotein 89 mg/dL; Potassium 4.2 mmol/L (3.5-5.1); Sodium Level 137 mmol/L (136-145); Thyroid Stim Hormone (TSH) 1.09 uIU/mL (0.358-3.74); Triglycerides 41 mg/dL; Very Low Density Lipoprotein 8 mg/dL (5-40)
[2020-09-09 12:54] LABS: Microalbumin,Random Urine 9.8 mg/L (NO RANGE EST.)
== END ==
PROVIDERS: PCP Internal Medicine; Referring Provider Nurse Practitioner Adult Health; Visit Provider Nurse Practitioner Adult Health
DX: E03.8 Other specified hypothyroidism (principal); E53.9 Vitamin B deficiency, unspecified; E55.9 Vitamin D deficiency, unspecified; E10.65 Type 1 diabetes mellitus with hyperglycemia
CPT/HCPCS: 36415; 80048; 80061; 82043; 82306; 82607; 83036; 84439; 84443; 84450; 84460

== ENCOUNTER → 2020-09-11 10:13 | Outpatient (CLI) | payer OTHER, MEDICARE, SELFPAY ==
--- NOTE | 2020-09-11 10:15 | NM_ITS ---
CLINICAL: 59-year-old female with reported history of osteoporosis. WHOLE BODY 99m Tc MDP RADIONUCLIDE BONE SCINTIGRAPHY COMPARISON: None available FINDINGS: Following the intravenous administration of 26.3 mCi of 99m Tc MDP, whole body bone images reveal: 1. Increased radiopharmaceutical concentration is identified in the acromioclavicular and sternoclavicular compartments of both shoulders, the left elbow, lower cervical spine posteriorly on the right and in the midline, fifth lumbar vertebra posteriorly on the left and right, the left posterior and midline sacrum. 2. The remaining skeletal structures are scintigraphically unremarkable with normal-appearing renal images and urinary bladder activity identified. NM/Bone Scan Whole Body IMPRESSION: 1. The increase in radiopharmaceutical concentration identified in the cervical and lumbar spine, bilateral shoulders, the left elbow 2. There is no definitive scintigraphic evidence of trauma-fracture on the current examination. Electronically Signed: Silvano Iglesias DO at 22:24 EST Tel , Service support ,
== END ==
PROVIDERS: PCP Internal Medicine; Referring Provider Internal Medicine; Visit Provider Internal Medicine
DX: R74.8 Abnormal levels of other serum enzymes (principal)
CPT/HCPCS: 78306

== ENCOUNTER → 2020-10-13 08:53 | Outpatient (CLI) | payer OTHER, MEDICARE, SELFPAY ==
--- NOTE | 2020-10-13 08:55 | US_ITS ---
STUDY: ABDOMINAL ULTRASOUND - RIGHT UPPER QUADRANT REASON FOR VISIT: Female, 59 years old ELEVATED ALKALINE PHOSPHATASE LEVEL -- LIVER GALLBLADDER TECHNIQUE: Ultrasound evaluation of the right upper quadrant was performed with real-time and static gonzales-scale imaging. TECHNICAL QUALITY: Adequate. COMPARISON: 02/03/2017 FINDINGS: Liver: The liver measures 14.6 cm. There is normal echogenicity of the liver. The bile ducts are within normal limits. There is hepatic color flow. The direction of portal flow is hepatopetal. There is no change in the 1.3 cm round hyperechoic mass within the posterior superior aspect of the right lobe of the liver consistent with a hemangioma. Gallbladder: Normal distended gallbladder. The gallbladder wall measures 2 mm. There is a negative sonographic Martins''s sign. There is no pericholecystic fluid. There are no gallstones. Common Bile Duct (C.B.D.): The common bile duct measures 3 mm. Pancreas: Normal size of the head, body and tail of the pancreas. There is normal echogenicity of the pancreas. There is no demonstrated pancreatic mass or cyst. Right Kidney: Normal size of the right kidney. The right kidney measures 11.9 cm. Normal renal cortex. The right cortex measures 1.1 cm. There is no demonstrated renal mass or cyst. There is no right hydronephrosis. US/Abdomen Limited IMPRESSION: Normal right upper quadrant ultrasound examination. Electronically Signed: Silvano Jordan MD at 9:18 EST Tel , Service support ,
== END ==
PROVIDERS: PCP Internal Medicine; Referring Provider Internal Medicine; Visit Provider Internal Medicine
DX: R74.8 Abnormal levels of other serum enzymes (principal)
CPT/HCPCS: 76705

== ENCOUNTER → 2020-11-04 10:54 | Outpatient (CLI) | payer OTHER, MEDICARE, SELFPAY ==
--- NOTE | 2020-11-06 10:25 | BD_ITS ---
STUDY: DUAL ENERGY X-RAY ABSORPTIOMETRY / DXA REASON FOR EXAM: Female, 59 years old. [id number] TECHNIQUE: Bone Mineral Density (BMD) measurements of lumbar spine and bilateral hips were obtained. COMPARISON: Comparison is made with prior study dated 02/04/2012. FINDINGS: Lumbar Spine (L1-L4): g/cm2 (1.041) / T-score (-1.2) / Z-score (0.1) Findings are suggestive of osteopenia with a low fracture risk. Left Femur Total: g/cm2 (0.872) / T-score (-1.1) / Z-score (-0.1) Left Femoral Neck: g/cm2 (0.733) / T-score (-2.2) / Z-score (-0.9) Right Femur Total: g/cm2 (0.849) / T-score (-1.3) / Z-score (-0.3) Right Femoral Neck: g/cm2 (0.708) / T-score (-2.4) / Z-score ( ) The T-Scores on the most recent prior examination were: Lumbar Spine (L1-L4): There has been improvement of bone density since the previous examination. Left Femur Total: which represents a worsening of 2.1%. Right Femur Total: which represents a worsening of 3.1%. BD/Dexa Bone Density Study IMPRESSION: The patient is considered osteopenic as outlined below according to World Regulo Organization (WHO) criteria with a high fracture risk. There has been worsening of bone density since the previous examination. Reference Information: The T-score is the number of standard deviations above or below the standard which is normal for young adults at their peak bone mineral density. The World Health Organization (WHO) interprets the T-scores as follows: Above -1 Normal bone density Between -1 and -2.5 Osteopenia Equal to / or below -2.5 Osteoporosis As a practical clinical guideline, osteopenia may be graded as follows: Mild -1 through -1.5 Moderate -1.6 through -2.0 Severe -2.1 through -2.4 The Z-score is the number of standard deviations above or below age-matched controls. A Z-score of less than -1.5 would be considered abnormal. References: 1. NIH Osteoporosis and Related Bone Diseases www osteo.org 2. International Society for Clinical Densitometry www iscd.org 3. National Osteoporosis Foundation www nof.org Electronically Signed: Salvador Pike MD at 15:50 EDT , Service support ,
== END ==
PROVIDERS: PCP Internal Medicine; Referring Provider Internal Medicine; Visit Provider Internal Medicine
DX: Z78.0 Asymptomatic menopausal state (principal)
CPT/HCPCS: 77080

== ENCOUNTER → 2020-12-15 10:54 | Outpatient (CLI) | payer OTHER, MEDICARE, SELFPAY ==
[2020-12-15 12:44] LABS: Microalbumin,Random Urine 9.7 mg/L (NO RANGE EST.)
[2020-12-15 12:48] LABS: Hemoglobin A1c 6.1 % (3.8-5.6)
[2020-12-15 12:56] LABS: Vitamin B12 1257 pg/mL (211-911)
[2020-12-15 13:06] LABS: AST(SGOT) 20 U/L (15-37); Alanine Aminotransfer ALT/SGPT 26 U/L (13-56); Anion Gap 7 (5-15); BUN 15 mg/dL (7-18); BUN/Creat Ratio 27.7 RATIO (10-20); Calcium,Total 8.9 mg/dL (8.5-10.1); Chloride 99 mmol/L (98-107); Cholesterol 187 mg/dL (200); Creatinine, Serum 0.54 mg/dL (0.55-1.02); EST Glomerular Filtration Rate 121 mL/min (>60); Est Glom Filt Rate - Afr Amer 147 mL/min (>60); Glucose 105 mg/dL (74-106); High Density Lipoprotein 92 mg/dL; Potassium 3.8 mmol/L (3.5-5.1); Sodium Level 138 mmol/L (136-145); T4 Free Direct 1.39 ng/dL (0.76-1.46); Thyroid Stim Hormone (TSH) 1.95 uIU/mL (0.358-3.74); Triglycerides 37 mg/dL; Very Low Density Lipoprotein 7 mg/dL (5-40)
== END ==
PROVIDERS: PCP Internal Medicine; Referring Provider Nurse Practitioner Adult Health; Visit Provider Nurse Practitioner Adult Health
DX: E03.8 Other specified hypothyroidism (principal); E53.9 Vitamin B deficiency, unspecified; E10.65 Type 1 diabetes mellitus with hyperglycemia; E55.9 Vitamin D deficiency, unspecified
CPT/HCPCS: 36415; 80048; 80061; 82043; 82306; 82607; 83036; 84439; 84443; 84450; 84460

== ENCOUNTER → 2021-01-02 11:44 | Outpatient (CLI) | payer OTHER, MEDICARE, SELFPAY ==
[2021-01-02 15:22] LABS: Erythrocyte Sedimentation Rate 4 mm/hr (0-30)
[2021-01-02 15:25] LABS: Absolute Lymphocyte Count 1.06 X10^3/uL (0.83-4.51); Absolute Neutrophil Count 3.5 X10^3/uL (2.0-7.7); Basophil# 0.03 X10^3/uL; Basophil% 0.6 % (0-1); Eosinophil# 0.16 X10^3/uL; Eosinophils% 3.1 % (0-5); Hematocrit 38.5 % (37-47); Hemoglobin 12.4 g/dL (12.0-15.0); Lymphocyte # 1.06 X10^3/ul (0.83-4.51); Lymphocyte % 20.5 % (19-41); Mean Corp Hgb Conc 32.2 g/dL (32-36); Mean Corpuscular Hgb 31.6 pg (27.0-32.0); Mean Platelet Vol. 11.1 fl (6.2-12.0); Monocyte# 0.43 X10^3/uL; Monocyte% 8.3 % (0-10); NRBC Flagged by Analyzer 0 % (0-5); Neutrophil # 3.47 X10^3/uL (2.7-7.7); Neutrophil % 67.1 % (47-70); Platelet Count 196 K/mm3 (150-450); RBC Distribution Width SD 46.6 fl (35.1-43.9); Red Blood Count 3.93 M/mm3 (4.2-5.4); White Blood Count 5.2 K/mm3 (4.4-11.0)
[2021-01-02 15:38] LABS: ALB/GLOB Ratio 1.1 RATIO (0.9-2.4); AST(SGOT) 21 U/L (15-37); Alanine Aminotransfer ALT/SGPT 26 U/L (13-56); Albumin, Serum 3.5 g/dL (3.2-5.0); Alkaline Phosphatase 148 U/L (45-117); Anion Gap 6 (5-15); BUN 17 mg/dL (7-18); BUN/Creat Ratio 30.1 RATIO (10-20); Calcium,Total 9.2 mg/dL (8.5-10.1); Chloride 103 mmol/L (98-107); Creatinine, Serum 0.56 mg/dL (0.55-1.02); EST Glomerular Filtration Rate 116 mL/min (>60); Est Glom Filt Rate - Afr Amer 140 mL/min (>60); Globulin 3.3 g/dL (2.2-4.2); Glucose 59 mg/dL (74-106); Potassium 3.9 mmol/L (3.5-5.1); Protein, Total 6.8 g/dL (6.4-8.2); Sodium Level 139 mmol/L (136-145)
== END ==
PROVIDERS: PCP Internal Medicine
DX: M05.79 Rheumatoid arthritis with rheumatoid factor of multiple sites without organ or systems involvement (principal); Z79.899 Other long term (current) drug therapy; R74.8 Abnormal levels of other serum enzymes; M81.0 Age-related osteoporosis without current pathological fracture; M48.02 Spinal stenosis, cervical region; M47.816 Spondylosis without myelopathy or radiculopathy, lumbar region; G89.29 Other chronic pain
CPT/HCPCS: 36415; 80053; 85025; 85652; 86140

== ENCOUNTER → 2021-03-31 10:02 | Outpatient (CLI) | payer OTHER, MEDICARE, SELFPAY ==
[2021-03-31 12:19] LABS: Erythrocyte Sedimentation Rate 8 mm/hr (0-30)
[2021-03-31 12:21] LABS: Absolute Lymphocyte Count 1.15 X10^3/uL (0.83-4.51); Absolute Neutrophil Count 5.6 X10^3/uL (2.0-7.7); Basophil# 0.03 X10^3/uL; Basophil% 0.4 % (0-1); Eosinophil# 0.15 X10^3/uL; Hemoglobin 12.4 g/dL (12.0-15.0); Lymphocyte # 1.15 X10^3/ul (0.83-4.51); Lymphocyte % 15.5 % (19-41); Mean Corp Hgb Conc 32.6 g/dL (32-36); Mean Corpuscular Hgb 31.4 pg (27.0-32.0); Mean Corpuscular Volume 96.2 fL (81-99); Mean Platelet Vol. 10.7 fl (6.2-12.0); Monocyte# 0.54 X10^3/uL; Monocyte% 7.3 % (0-10); NRBC Flagged by Analyzer 0 % (0-5); Neutrophil # 5.56 X10^3/uL (2.7-7.7); Neutrophil % 74.7 % (47-70); Platelet Count 206 K/mm3 (150-450); RBC Distribution Width CV 13.5 % (11.6-14.6); RBC Distribution Width SD 48.4 fl (35.1-43.9); Red Blood Count 3.95 M/mm3 (4.2-5.4); White Blood Count 7.4 K/mm3 (4.4-11.0)
[2021-03-31 12:38] LABS: Vitamin B12 675 pg/mL (211-911); Vitamin D,25 Hydroxy 103.2 ng/mL
[2021-03-31 12:41] LABS: Hemoglobin A1c 6.1 % (3.8-5.6)
[2021-03-31 12:47] LABS: Microalbumin,Random Urine 22.6 mg/L (NO RANGE EST.); Microalbumin:Creatinine Ratio 10.4 mg/g CRE (<30 mg/g CRE)
[2021-03-31 12:50] LABS: ALB/GLOB Ratio 1.1 RATIO (0.9-2.4); AST(SGOT) 22 U/L (15-37); Alanine Aminotransfer ALT/SGPT 31 U/L (13-56); Albumin, Serum 3.6 g/dL (3.2-5.0); Alkaline Phosphatase 152 U/L (45-117); Anion Gap 6 (5-15); BUN 13 mg/dL (7-18); BUN/Creat Ratio 23.8 RATIO (10-20); Chloride 102 mmol/L (98-107); Cholesterol 183 mg/dL (200); Creatinine, Serum 0.55 mg/dL (0.55-1.02); EST Glomerular Filtration Rate 120 mL/min (>60); Est Glom Filt Rate - Afr Amer 146 mL/min (>60); Globulin 3.2 g/dL (2.2-4.2); Glucose 132 mg/dL (74-106); High Density Lipoprotein 84 mg/dL; Potassium 4.1 mmol/L (3.5-5.1); Protein, Total 6.8 g/dL (6.4-8.2); Sodium Level 137 mmol/L (136-145); T4 Free Direct 1.47 ng/dL (0.76-1.46); Thyroid Stim Hormone (TSH) 1.97 uIU/mL (0.358-3.74); Triglycerides 48 mg/dL; Very Low Density Lipoprotein 10 mg/dL (5-40)
== END ==
PROVIDERS: PCP Internal Medicine; Referring Provider Internal Medicine; Visit Provider Internal Medicine
DX: M05.79 Rheumatoid arthritis with rheumatoid factor of multiple sites without organ or systems involvement (principal); R74.8 Abnormal levels of other serum enzymes; E78.2 Mixed hyperlipidemia; E03.8 Other specified hypothyroidism; E53.9 Vitamin B deficiency, unspecified; E55.9 Vitamin D deficiency, unspecified; E10.65 Type 1 diabetes mellitus with hyperglycemia; M81.0 Age-related osteoporosis without current pathological fracture; G89.29 Other chronic pain; Z79.899 Other long term (current) drug therapy; M48.02 Spinal stenosis, cervical region; M47.816 Spondylosis without myelopathy or radiculopathy, lumbar region; M16.0 Bilateral primary osteoarthritis of hip; M19.011 Primary osteoarthritis, right shoulder; M19.012 Primary osteoarthritis, left shoulder
CPT/HCPCS: 36415; 80053; 80061; 82043; 82306; 82570; 82607; 83036; 84439; 84443; 85025; 85652; 86140

== ENCOUNTER → 2021-04-17 10:17 | Outpatient (CLI) | payer OTHER, MEDICARE, SELFPAY ==
--- NOTE | 2021-04-17 10:19 | BI_ITS ---
MAMMOGRAPHY - BILATERAL SCREENING REASON FOR EXAM: Female, 60 years old. Routine annual screening examination. PERTINENT HISTORY: Aunt with breast cancer. Remote bilateral breast biopsies. TECHNIQUE: Digital bilateral breast meño (3D mammographic acquisition) in the CC and MLO projections. 2-D mediolateral oblique (MLO) and craniocaudad (CC) views of both breasts were obtained. CAD: Full Field Digital Mammography with Computer Added Detection was performed. COMPARISON: Comparison is made with prior examination dated 02/05/2020 and 11/02/2018. FINDINGS: Breast Composition: The breasts are heterogeneously dense, which may obscure small masses. Stable 1.1 cm x 1.2 cm nodular density in the deep slightly upper lateral aspect of the right breast. A tissue clip marker is seen within the nodular density. Stable benign-appearing bilateral axillary lymph nodes. No other significant abnormalities are identified. There has been no significant change since the prior study. BI/SCRN MAMM (CAD)W/MEÑO BILAT IMPRESSION: Stable bilateral screening mammogram. Yearly follow-up mammogram recommended. (A) ASSESSMENT CATEGORY: BIRADS Category 2: Benign. A letter regarding these results will be sent to the patient by the facility within 30 days. Approximately 10% of breast cancers are not detected by mammography. A normal mammogram should not delay biopsy of a clinically suspicious abnormality. [id number] Electronically Signed: Salvador Pike MD at 11:16 EDT , Service support ,
== END ==
PROVIDERS: PCP Internal Medicine; Referring Provider Internal Medicine; Visit Provider Internal Medicine
DX: Z12.31 Encounter for screening mammogram for malignant neoplasm of breast (principal)
CPT/HCPCS: 77063; 77067

== ENCOUNTER → 2021-06-26 10:46 | Outpatient (CLI) | payer OTHER, MEDICARE, SELFPAY ==
--- NOTE | 2021-06-26 10:49 | US_ITS ---
STUDY: THYROID ULTRASOUND REASON FOR EXAM: Female, 60 years old. NODULE TECHNIQUE: Ultrasound evaluation of the thyroid was performed with real-time and static gonzales-scale imaging. COMPARISON: 03/13/2020 FINDINGS: RIGHT LOBE: The right lobe of the thyroid gland measures 4.3 x 1.2 cm. There is a heterogeneous echotexture. There are no demonstrated solid, cystic or complex lesions. LEFT LOBE: The left lobe of the thyroid gland measures 3.7 x 1.3 cm. There is a heterogeneous echotexture. There are no demonstrated solid, cystic or complex lesions. ISTHMUS: The isthmus measures 3 mm. Cystic nodule of the isthmus measuring 3 x 4 x 3 mm. The regional lymph nodes are normal. US/Thyroid IMPRESSION: There is a cystic isthmus nodules. This nodule is cystic or nearly completely cystic. TI-RADS points: 0. TI-RADS category: TR1. This nodule is benign and no FNA or follow-up is necessary. Electronically Signed: Rajiv Shanks MD at 17:14 EST , Service support ,
[2021-06-26 12:42] LABS: Erythrocyte Sedimentation Rate 4 mm/hr (0-30)
[2021-06-26 12:45] LABS: Absolute Lymphocyte Count 1.39 X10^3/uL (0.83-4.51); Absolute Neutrophil Count 2.3 X10^3/uL (2.0-7.7); Basophil# 0.04 X10^3/uL; Basophil% 0.9 % (0-1); Eosinophil# 0.15 X10^3/uL; Eosinophils% 3.4 % (0-5); Hematocrit 38.5 % (37-47); Hemoglobin 12.4 g/dL (12.0-15.0); Lymphocyte # 1.39 X10^3/ul (0.83-4.51); Lymphocyte % 31.5 % (19-41); Mean Corp Hgb Conc 32.2 g/dL (32-36); Mean Corpuscular Hgb 30.8 pg (27.0-32.0); Mean Corpuscular Volume 95.5 fL (81-99); Mean Platelet Vol. 11.3 fl (6.2-12.0); Monocyte# 0.51 X10^3/uL; Monocyte% 11.6 % (0-10); NRBC Flagged by Analyzer 0 % (0-5); Neutrophil # 2.31 X10^3/uL (2.7-7.7); Neutrophil % 52.4 % (47-70); Platelet Count 173 K/mm3 (150-450); RBC Distribution Width CV 13.7 % (11.6-14.6); Red Blood Count 4.03 M/mm3 (4.2-5.4); White Blood Count 4.4 K/mm3 (4.4-11.0)
[2021-06-26 12:54] LABS: Vitamin B12 951 pg/mL (211-911); Vitamin D,25 Hydroxy 54.5 ng/mL
[2021-06-26 12:58] LABS: Hemoglobin A1c 6.2 % (3.8-5.6)
[2021-06-26 13:00] LABS: ALB/GLOB Ratio 1.1 RATIO (0.9-2.4); AST(SGOT) 19 U/L (15-37); Alanine Aminotransfer ALT/SGPT 34 U/L (13-56); Albumin, Serum 3.5 g/dL (3.2-5.0); Alkaline Phosphatase 121 U/L (45-117); Anion Gap 6 (5-15); BUN 17 mg/dL (7-18); BUN/Creat Ratio 27.2 RATIO (10-20); CRP, High Sensitivity Cardiac 5.88 mg/L; Calcium,Total 8.9 mg/dL (8.5-10.1); Chloride 100 mmol/L (98-107); Cholesterol 182 mg/dL (200); Creatinine, Serum 0.62 mg/dL (0.55-1.02); EST Glomerular Filtration Rate 103 mL/min (>60); Est Glom Filt Rate - Afr Amer 125 mL/min (>60); Globulin 3.3 g/dL (2.2-4.2); Glucose 124 mg/dL (74-106); High Density Lipoprotein 105 mg/dL; Potassium 4.1 mmol/L (3.5-5.1); Protein, Total 6.8 g/dL (6.4-8.2); Sodium Level 138 mmol/L (136-145); Thyroid Stim Hormone (TSH) 3.95 uIU/mL (0.358-3.74); Triglycerides 52 mg/dL; Very Low Density Lipoprotein 10 mg/dL (5-40)
[2021-06-26 13:09] LABS: Microalbumin,Random Urine 13.7 mg/L (NO RANGE EST.)
[2021-06-26 13:36] LABS: CRP 6.47 mg/L (0.0-3.0)
[2021-06-27 08:05] LABS: LDL, Direct 120295 69 mg/dL (0-99)
== END ==
PROVIDERS: PCP Internal Medicine; Referring Provider Internal Medicine; Visit Provider Internal Medicine
DX: E04.1 Nontoxic single thyroid nodule (principal); E78.2 Mixed hyperlipidemia; M81.0 Age-related osteoporosis without current pathological fracture; E03.8 Other specified hypothyroidism; E53.9 Vitamin B deficiency, unspecified; E55.9 Vitamin D deficiency, unspecified; E10.65 Type 1 diabetes mellitus with hyperglycemia; R79.89 Other specified abnormal findings of blood chemistry
CPT/HCPCS: 76536; 80053; 80061; 82043; 82306; 82570; 82607; 83036; 83721; 84439; 84443; 85025; 85652; 86140; 86141

== ENCOUNTER 2021-07-15 11:25 | Outpatient (CLI) | payer OTHER, MEDICARE, SELFPAY ==
[2021-07-15] MEDS: 0.9% Saline Lock 10 ML Syringe IV (11:49)
[2021-07-15 11:53] VITALS: BP 136/66; PULSE 79; RESP 16; TEMP 37.6; O2SAT 100; BMI 22.6
[2021-07-15 12:40] VITALS: BP 106/65; PULSE 74; RESP 16; TEMP 37.3; O2SAT 99
[2021-07-15 13:19] VITALS: BP 133/82; PULSE 69; RESP 16; TEMP 37.3; O2SAT 100
== END 2021-07-15 13:40 | disposition home or self-care (01) ==
LOC: MS3OUT 11:25 → MS3 11:26
PROVIDERS: PCP Internal Medicine; Referring Provider Nurse Practitioner Adult Health; Visit Provider Nurse Practitioner Adult Health
DX: Z23 Encounter for immunization (principal); U07.1 COVID-19
CPT/HCPCS: J7050; M0243; A4216; Q0240

== ENCOUNTER 2021-10-01 10:10 | Outpatient (CLI) | payer OTHER, MEDICARE, SELFPAY ==
[2021-10-01 12:12] LABS: Erythrocyte Sedimentation Rate 9 mm/hr (0-30)
[2021-10-01 12:23] LABS: Absolute Lymphocyte Count 1.03 X10^3/uL (0.83-4.51); Absolute Neutrophil Count 4.2 X10^3/uL (2.0-7.7); Basophil# 0.02 X10^3/uL; Basophil% 0.4 % (0-1); Eosinophil# 0.13 X10^3/uL; Eosinophils% 2.3 % (0-5); Hematocrit 39.8 % (37-47); Hemoglobin 13.2 g/dL (12.0-15.0); Lymphocyte # 1.03 X10^3/ul (0.83-4.51); Lymphocyte % 18.1 % (19-41); Mean Corp Hgb Conc 33.2 g/dL (32-36); Mean Corpuscular Hgb 32.8 pg (27.0-32.0); Mean Platelet Vol. 10.9 fl (6.2-12.0); Monocyte# 0.33 X10^3/uL; Monocyte% 5.8 % (0-10); NRBC Flagged by Analyzer 0 % (0-5); Neutrophil # 4.17 X10^3/uL (2.7-7.7); Neutrophil % 73.2 % (47-70); Platelet Count 199 K/mm3 (150-450); RBC Distribution Width CV 13.2 % (11.6-14.6); RBC Distribution Width SD 47.8 fl (35.1-43.9); Red Blood Count 4.02 M/mm3 (4.2-5.4); White Blood Count 5.7 K/mm3 (4.4-11.0)
[2021-10-01 12:26] LABS: Vitamin B12 857 pg/mL (211-911)
[2021-10-01 12:31] LABS: Hemoglobin A1c 6.2 % (3.8-5.6)
[2021-10-01 12:36] LABS: ALB/GLOB Ratio 1.1 RATIO (0.9-2.4); AST(SGOT) 23 U/L (15-37); Alanine Aminotransfer ALT/SGPT 30 U/L (13-56); Albumin, Serum 3.6 g/dL (3.2-5.0); Alkaline Phosphatase 150 U/L (45-117); Anion Gap 3 (5-15); BUN 14 mg/dL (7-18); BUN/Creat Ratio 25.1 RATIO (10-20); CRP 5.69 mg/L (0.0-3.0); Calcium,Total 8.6 mg/dL (8.5-10.1); Chloride 104 mmol/L (98-107); Cholesterol 179 mg/dL (200); Creatinine, Serum 0.56 mg/dL (0.55-1.02); EST Glomerular Filtration Rate 117 mL/min (>60); Est Glom Filt Rate - Afr Amer 142 mL/min (>60); Globulin 3.2 g/dL (2.2-4.2); Glucose 122 mg/dL (74-106); High Density Lipoprotein 96 mg/dL; Potassium 3.9 mmol/L (3.5-5.1); Protein, Total 6.8 g/dL (6.4-8.2); Sodium Level 138 mmol/L (136-145); T4 Free Direct 1.29 ng/dL (0.76-1.46); Thyroid Stim Hormone (TSH) 1.36 uIU/mL (0.358-3.74); Triglycerides 33 mg/dL; Very Low Density Lipoprotein 7 mg/dL (5-40)
[2021-10-01 12:39] LABS: Microalbumin,Random Urine 12.7 mg/L (NO RANGE EST.)
[2021-10-05 14:09] LABS: Testosterone, Free 0.33 ng/dL (0.10-0.85); Testosterone, Total 27 ng/dL (3-67)
[2021-10-05 20:23] LABS: Testosterone, % Free 1.23 % (0.50-2.80)
== END 2021-10-01 23:59 | disposition home or self-care (01) ==
LOC: MTLAB 10:15
PROVIDERS: PCP Internal Medicine; Referring Provider Internal Medicine; Visit Provider Internal Medicine
DX: E03.8 Other specified hypothyroidism (principal); E10.65 Type 1 diabetes mellitus with hyperglycemia; E53.9 Vitamin B deficiency, unspecified; E55.9 Vitamin D deficiency, unspecified
CPT/HCPCS: 36415; 80053; 80061; 82043; 82306; 82607; 83036; 84402; 84403; 84439; 84443; 85025; 85652; 86140

== ENCOUNTER → 2022-01-15 | Outpatient (CLI) | payer OTHER, MEDICARE, SELFPAY ==
[2022-01-15 12:27] LABS: Absolute Lymphocyte Count 1.22 X10^3/uL (0.83-4.51); Basophil# 0.01 X10^3/uL; Basophil% 0.2 % (0-1); Erythrocyte Sedimentation Rate 6 mm/hr (0-30); Hematocrit 42.6 % (37-47); Hemoglobin 13.9 g/dL (12.0-15.0); Lymphocyte # 1.22 X10^3/ul (0.83-4.51); Lymphocyte % 21.1 % (19-41); Mean Corp Hgb Conc 32.6 g/dL (32-36); Mean Corpuscular Hgb 31.6 pg (27.0-32.0); Mean Corpuscular Volume 96.8 fL (81-99); Mean Platelet Vol. 11.1 fl (6.2-12.0); Monocyte# 0.55 X10^3/uL; Monocyte% 9.5 % (0-10); NRBC Flagged by Analyzer 0 % (0-5); Neutrophil # 3.99 X10^3/uL (2.7-7.7); Neutrophil % 68.9 % (47-70); Platelet Count 194 K/mm3 (150-450); RBC Distribution Width CV 12.7 % (11.6-14.6); RBC Distribution Width SD 45.5 fl (35.1-43.9); White Blood Count 5.8 K/mm3 (4.4-11.0)
[2022-01-15 12:37] LABS: Microalbumin,Random Urine 13.9 mg/L (NO RANGE EST.); Microalbumin:Creatinine Ratio 9.9 mg/g CRE (<30 mg/g CRE)
[2022-01-15 12:44] LABS: Hemoglobin A1c 6.1 % (3.8-5.6)
[2022-01-15 12:49] LABS: Vitamin B12 962 pg/mL (211-911); Vitamin D,25 Hydroxy 74.9 ng/mL
[2022-01-15 13:37] LABS: ALB/GLOB Ratio 1.1 RATIO (0.9-2.4); AST(SGOT) 28 U/L (15-37); Alanine Aminotransfer ALT/SGPT 46 U/L (13-56); Albumin, Serum 3.9 g/dL (3.2-5.0); Alkaline Phosphatase 138 U/L (45-117); Anion Gap 4 (5-15); BUN 17 mg/dL (7-18); Calcium,Total 9.1 mg/dL (8.5-10.1); Chloride 102 mmol/L (98-107); Cholesterol 206 mg/dL (200); Creatinine, Serum 0.57 mg/dL (0.55-1.02); EST Glomerular Filtration Rate 115 mL/min (>60); Est Glom Filt Rate - Afr Amer 139 mL/min (>60); Free T3 2.2 pg/mL (2.18-3.98); Globulin 3.4 g/dL (2.2-4.2); Glucose 115 mg/dL (74-106); High Density Lipoprotein 98 mg/dL; Potassium 4.1 mmol/L (3.5-5.1); Protein, Total 7.3 g/dL (6.4-8.2); Sodium Level 136 mmol/L (136-145); T4 Free Direct 1.35 ng/dL (0.76-1.46); Thyroid Stim Hormone (TSH) 1.71 uIU/mL (0.358-3.74); Triglycerides 43 mg/dL; Very Low Density Lipoprotein 9 mg/dL (5-40)
[2022-01-18 20:20] LABS: LDL, Direct 120295 92 mg/dL (0-99)
== END | disposition home or self-care (01) ==
LOC: MTLAB 11:04
PROVIDERS: PCP Internal Medicine; Visit Provider Nurse Practitioner Adult Health
DX: E03.9 Hypothyroidism, unspecified (principal); E10.65 Type 1 diabetes mellitus with hyperglycemia; E78.2 Mixed hyperlipidemia; M81.0 Age-related osteoporosis without current pathological fracture; R53.83 Other fatigue; E55.9 Vitamin D deficiency, unspecified; M16.0 Bilateral primary osteoarthritis of hip; M19.011 Primary osteoarthritis, right shoulder; M19.012 Primary osteoarthritis, left shoulder
CPT/HCPCS: 36415; 80053; 80061; 82043; 82306; 82570; 82607; 82746; 83036; 83721; 84439; 84443; 84481; 85025; 85652; 86140

== ENCOUNTER 2022-02-15 15:11 | Outpatient (CLI) | payer OTHER, MEDICARE, SELFPAY ==
[2022-02-15 15:32] VITALS: BP 151/76; PULSE 88; RESP 16; TEMP 37.1; O2SAT 99; BMI 22.3
[2022-02-15] MEDS: 0.9% Saline Lock 10 ML Syringe IV (15:43)
[2022-02-15] MEDS: BEBTELOVIMAB 175 MG/2 ML VIAL IV (15:43)
[2022-02-15 16:15] VITALS: BP 140/70; PULSE 76; RESP 16; TEMP 37.1; O2SAT 97
[2022-02-15 16:47] VITALS: BP 143/75; PULSE 77; RESP 16; TEMP 37.1; O2SAT 97
== END 2022-02-15 16:48 | disposition home or self-care (01) ==
LOC: MS3OUT 15:11 → MS2 15:12
PROVIDERS: PCP Internal Medicine; Referring Provider Nurse Practitioner Adult Health; Visit Provider Nurse Practitioner Adult Health
DX: U07.1 COVID-19 (principal)
CPT/HCPCS: M0222; A4216

== ENCOUNTER → 2022-04-26 | Outpatient (CLI) | payer OTHER, MEDICARE, SELFPAY ==
--- NOTE | 2022-04-26 10:41 | RAD_ITS ---
STUDY: X-RAY - RIGHT WRIST REASON FOR EXAM: Rheumatoid arthritis. TECHNIQUE: 3 view(s) of the wrist were obtained. COMPARISON: Radiographs 11/26/2020. FINDINGS: There is chronic healed fracture deformity of the distal radius. Normal radiocarpal articulation. Normal distal radioulnar articulation. Normal carpal bones. Normal carpal articulations. Normal carpometacarpal articulation of the thumb. Normal second through fifth carpometacarpal articulations. Normal visualized metacarpal bones. The soft tissue structures are unremarkable. RAD/Wrist min 3 Views IMPRESSION: Chronic healed fracture deformity of the distal radius. No demonstrated osseous erosions. Electronically Signed: Kurt Bales MD at 13:35 EDT ,
--- NOTE | 2022-04-26 10:41 | RAD_ITS ---
STUDY: X-RAY - LEFT WRIST REASON FOR EXAM: Rheumatoid arthritis. TECHNIQUE: 3 view(s) of the wrist were obtained. COMPARISON: None. FINDINGS: Normal visualized distal radius and ulna. Normal radiocarpal articulation. Normal distal radioulnar articulation. Normal carpal bones. Normal carpal articulations. Normal carpometacarpal articulation of the thumb. Normal second through fifth carpometacarpal articulations. Normal visualized metacarpal bones. The soft tissue structures are unremarkable. RAD/Wrist min 3 Views IMPRESSION: No demonstrated osseous erosions. Electronically Signed: Kurt Bales MD at 14:15 EDT ,
--- NOTE | 2022-04-26 10:41 | RAD_ITS ---
STUDY: X-RAY - RIGHT SHOULDER REASON FOR EXAM: Rheumatoid arthritis. TECHNIQUE: 2 view(s) of the shoulder. COMPARISON: Radiographs 08/21/2020. FINDINGS: Normal glenohumeral articulation. There is joint space narrowing of the acromioclavicular joint as on the prior study. Normal acromion. Normal humeral head and visualized proximal humerus. The soft tissue structures are unremarkable. Normal visualized pulmonary apex. RAD/Shoulder min 2 Views IMPRESSION: Acromioclavicular osteoarthritis. No demonstrated osseous erosions. Electronically Signed: Kurt Bales MD at 12:32 EDT ,
--- NOTE | 2022-04-26 10:41 | RAD_ITS ---
STUDY: X-RAY - LEFT SHOULDER REASON FOR EXAM: Rheumatoid arthritis. TECHNIQUE: 2 view(s) of the shoulder. COMPARISON: Radiographs 08/25/2018. FINDINGS: Normal glenohumeral articulation. There are small marginal osteophytes and joint space narrowing of the acromioclavicular joint as on the prior study. Normal acromion. Normal humeral head and visualized proximal humerus. The soft tissue structures are unremarkable. Normal visualized pulmonary apex. RAD/Shoulder min 2 Views IMPRESSION: Acromioclavicular osteoarthritis. No demonstrated osseous erosions. Electronically Signed: Kurt Bales MD at 12:09 EDT ,
[2022-04-26 12:12] LABS: Erythrocyte Sedimentation Rate 2 mm/hr (0-30)
[2022-04-26 12:16] LABS: Absolute Lymphocyte Count 0.99 X10^3/uL (0.83-4.51); Basophil# 0.01 X10^3/uL; Basophil% 0.2 % (0-1); Hematocrit 38.2 % (37-47); Hemoglobin 12.7 g/dL (12.0-15.0); Lymphocyte # 0.99 X10^3/ul (0.83-4.51); Lymphocyte % 22.3 % (19-41); Mean Corp Hgb Conc 33.2 g/dL (32-36); Mean Corpuscular Hgb 33.6 pg (27.0-32.0); Mean Corpuscular Volume 101.1 fL (81-99); Mean Platelet Vol. 10.7 fl (6.2-12.0); Monocyte# 0.45 X10^3/uL; Monocyte% 10.2 % (0-10); NRBC Flagged by Analyzer 0 % (0-5); Neutrophil # 2.96 X10^3/uL (2.7-7.7); Neutrophil % 66.8 % (47-70); Platelet Count 172 K/mm3 (150-450); RBC Distribution Width SD 48.9 fl (35.1-43.9); Red Blood Count 3.78 M/mm3 (4.2-5.4); White Blood Count 4.4 K/mm3 (4.4-11.0)
[2022-04-26 12:54] LABS: Vitamin B12 754 pg/mL (211-911); Vitamin D,25 Hydroxy 72.3 ng/mL
[2022-04-26 13:06] LABS: Hemoglobin A1c 6.2 % (3.8-5.6)
[2022-04-26 13:28] LABS: Microalbumin,Random Urine 21.8 mg/L (NO RANGE EST.); Microalbumin:Creatinine Ratio 15.8 mg/g CRE (<30 mg/g CRE)
[2022-04-26 13:35] LABS: ALB/GLOB Ratio 1.2 RATIO (0.9-2.4); AST(SGOT) 77 U/L (15-37); Alanine Aminotransfer ALT/SGPT 94 U/L (13-56); Albumin, Serum 3.5 g/dL (3.2-5.0); Alkaline Phosphatase 112 U/L (45-117); Anion Gap 10 (5-15); BUN 14 mg/dL (7-18); CRP 6.13 mg/L (0.0-3.0); Calcium,Total 8.6 mg/dL (8.5-10.1); Chloride 104 mmol/L (98-107); Cholesterol 173 mg/dL (200); Creatinine, Serum 0.54 mg/dL (0.55-1.02); EST Glomerular Filtration Rate 122 mL/min (>60); Est Glom Filt Rate - Afr Amer 148 mL/min (>60); Glucose 123 mg/dL (74-106); High Density Lipoprotein 109 mg/dL; Potassium 4.2 mmol/L (3.5-5.1); Protein, Total 6.5 g/dL (6.4-8.2); Sodium Level 139 mmol/L (136-145); T4 Free Direct 1.48 ng/dL (0.76-1.46); Thyroid Stim Hormone (TSH) 0.62 uIU/mL (0.358-3.74); Triglycerides 37 mg/dL; Very Low Density Lipoprotein 7 mg/dL (5-40)
== END | disposition home or self-care (01) ==
PROVIDERS: Nurse Practitioner Adult Health; PCP Internal Medicine; Referring Provider Internal Medicine Rheumatology; Visit Provider Internal Medicine Rheumatology
DX: M05.79 Rheumatoid arthritis with rheumatoid factor of multiple sites without organ or systems involvement (principal); E10.65 Type 1 diabetes mellitus with hyperglycemia; R11.2 Nausea with vomiting, unspecified; E03.8 Other specified hypothyroidism; E53.9 Vitamin B deficiency, unspecified; E55.9 Vitamin D deficiency, unspecified; Z79.899 Other long term (current) drug therapy; M81.0 Age-related osteoporosis without current pathological fracture; G89.29 Other chronic pain; M47.9 Spondylosis, unspecified; R74.8 Abnormal levels of other serum enzymes; M65.312 Trigger thumb, left thumb; M19.011 Primary osteoarthritis, right shoulder; M19.012 Primary osteoarthritis, left shoulder; M16.0 Bilateral primary osteoarthritis of hip; M48.02 Spinal stenosis, cervical region
CPT/HCPCS: 73030; 73110; 80053; 80061; 82043; 82306; 82570; 82607; 83036; 84439; 84443; 85025; 85652; 86140

== ENCOUNTER → 2022-04-28 | Outpatient (CLI) | payer OTHER, MEDICARE, SELFPAY ==
--- NOTE | 2022-04-28 09:56 | US_ITS ---
STUDY: ABDOMINAL ULTRASOUND - RIGHT UPPER QUADRANT REASON FOR VISIT: Female, 61 years old female presenting with the abdominal pain and nausea after eating. TECHNIQUE: Ultrasound evaluation of the right upper quadrant was performed with real-time and static gonzales-scale imaging. TECHNICAL QUALITY: Adequate. COMPARISON: 10/13/2020. FINDINGS: Liver: The liver measures 16.4 cm. There is heterogeneous increased echogenicity of the liver. The bile ducts are within normal limits. There is hepatic color flow. The direction of portal flow is hepatopetal. The meningioma that was visualized on prior study it was seen on today''s study. Gallbladder: Normal distended gallbladder. The gallbladder wall is unremarkable. There is a negative sonographic Martins''s sign. There is no pericholecystic fluid. There are no gallstones. Common Bile Duct (C.B.D.): The common bile duct measures 4 mm. Pancreas: Normal size of the head, body and tail of the pancreas. There is normal echogenicity of the pancreas. There is no demonstrated pancreatic mass or cyst. Right Kidney: Normal size of the right kidney. The right kidney measures 11.3 x 4.7 x 4.1 cm. Normal renal cortex. The right cortex measures 1.2 cm. There is no demonstrated renal mass or cyst. There is no right hydronephrosis. US/Abdomen Limited IMPRESSION: Hepatic steatosis. No evidence of acute pathology. Electronically Signed: Andry Watson MD at 14:46 EDT ,
--- NOTE | 2022-04-28 10:55 | BI_ITS ---
MAMMOGRAPHY - BILATERAL SCREENING 3-D TOMOSYNTHESIS REASON FOR EXAM: Female, 61 years old. SCREENING PERTINENT HISTORY: No significant family history. TECHNIQUE: 2-D mammograms and 3-D Tomosynthesis of the breast (s) were performed. CAD was performed. COMPARISON: 04/17/2021 FINDINGS: The breast composition is Extermely dense tissue. Scattered benign calcifications are seen. No dense spiculated masses or suspicious microcalcifications are identified. No architectural distortion is identified. There is no skin thickening or retraction. No change in the 2 cm oval equal density mass in the lower outer quadrant of the right breast at posterior depth which is incompletely imaged but has been biopsied with placement of a biopsy clip. Bilateral benign vascular calcifications which can be associated with coronary artery disease. BI/SCREENING MAMM (CAD), BILAT IMPRESSION: No mammographic signs of malignancy. Routine yearly mammograms recommended. ASSESSMENT CATEGORY: BIRADS Category 2: Benign. A letter regarding these results will be sent to the patient by the facility within 30 days. FOLLOW UP RECOMMENDATION: Yearly follow up mammogram recommended. (A) Approximately 10% of breast cancers are not detected by mammography. A normal mammogram should not delay biopsy of a clinically suspicious abnormality. Electronically Signed: Silvano Jordan MD at 12:09 EDT ,
== END | disposition home or self-care (01) ==
PROVIDERS: PCP Internal Medicine; Referring Provider Internal Medicine; Visit Provider Internal Medicine
DX: Z12.31 Encounter for screening mammogram for malignant neoplasm of breast (principal); R11.2 Nausea with vomiting, unspecified
CPT/HCPCS: 76705; 77067

== ENCOUNTER → 2022-07-20 | Outpatient (CLI) | payer OTHER, MEDICARE, SELFPAY ==
--- NOTE | 2022-07-20 15:32 | US_ITS ---
STUDY: THYROID ULTRASOUND REASON FOR EXAM: Female, 61 years old. Known nodule TECHNIQUE: Ultrasound evaluation of the thyroid was performed with real-time and static gonzales-scale imaging. COMPARISON: 06/26/2021 FINDINGS: RIGHT LOBE: The right lobe of the thyroid gland measures 4.7 x 1.2 x 1.0 cm. There is a heterogeneous echotexture. There are no demonstrated solid, cystic or complex lesions. LEFT LOBE: The left lobe of the thyroid gland measures 4.4 x 1.1 x 1.0 cm. There is a heterogeneous echotexture. There are no demonstrated solid, cystic or complex lesions. ISTHMUS: The isthmus measures 0.2 cm. Stable cystic nodule measuring 0.4 x 0.4 x 0.3 cm. The regional lymph nodes are normal. US/Head/Neck Soft Tissue IMPRESSION: Stable heterogeneous thyroid gland with stable 4 mm cystic lesion in the isthmus. No interval change, no specific follow-up needed Electronically Signed: Kali Edwards MD at 11:51 EST ,
== END | disposition home or self-care (01) ==
LOC: US 15:31
PROVIDERS: PCP Internal Medicine; Visit Provider Internal Medicine
DX: E04.1 Nontoxic single thyroid nodule (principal)
CPT/HCPCS: 76536

== ENCOUNTER → 2022-08-25 | Outpatient (CLI) | payer OTHER, MEDICARE, SELFPAY ==
[2022-08-25 12:47] LABS: Absolute Lymphocyte Count 1.05 X10^3/uL (0.83-4.51); Basophil# 0.02 X10^3/uL; Basophil% 0.4 % (0-1); Hematocrit 40.7 % (37-47); Hemoglobin 13.1 g/dL (12.0-15.0); Lymphocyte # 1.05 X10^3/ul (0.83-4.51); Lymphocyte % 19.1 % (19-41); Mean Corp Hgb Conc 32.2 g/dL (32-36); Mean Corpuscular Hgb 32.4 pg (27.0-32.0); Mean Corpuscular Volume 100.7 fL (81-99); Mean Platelet Vol. 10.7 fl (6.2-12.0); Monocyte# 0.44 X10^3/uL; NRBC Flagged by Analyzer 0 % (0-5); Neutrophil # 3.98 X10^3/uL (2.7-7.7); Neutrophil % 72.1 % (47-70); Platelet Count 191 K/mm3 (150-450); RBC Distribution Width CV 12.8 % (11.6-14.6); RBC Distribution Width SD 47.6 fl (35.1-43.9); Red Blood Count 4.04 M/mm3 (4.2-5.4); White Blood Count 5.5 K/mm3 (4.4-11.0)
[2022-08-25 13:06] LABS: Hemoglobin A1c 6.1 % (3.8-5.6)
[2022-08-25 13:20] LABS: Microalbumin,Random Urine 59.2 mg/L (NO RANGE EST.)
[2022-08-25 13:25] LABS: Vitamin B12 733 pg/mL (211-911); Vitamin D,25 Hydroxy 66.8 ng/mL
[2022-08-25 13:53] LABS: ALB/GLOB Ratio 1.5 RATIO (0.9-2.4); AST(SGOT) 32 U/L (15-37); Alanine Aminotransfer ALT/SGPT 44 U/L (13-56); Albumin, Serum 3.9 g/dL (3.2-5.0); Alkaline Phosphatase 109 U/L (45-117); Anion Gap 8 (5-15); BUN 15 mg/dL (7-18); BUN/Creat Ratio 29.1 RATIO (10-20); Calcium,Total 9.2 mg/dL (8.5-10.1); Chloride 104 mmol/L (98-107); Cholesterol 191 mg/dL (200); Creatinine, Serum 0.52 mg/dL (0.55-1.02); EST Glomerular Filtration Rate 128 mL/min (>60); Est Glom Filt Rate - Afr Amer 155 mL/min (>60); Globulin 2.6 g/dL (2.2-4.2); Glucose 81 mg/dL (74-106); High Density Lipoprotein 89 mg/dL; Potassium 4.5 mmol/L (3.5-5.1); Protein, Total 6.5 g/dL (6.4-8.2); Sodium Level 139 mmol/L (136-145); T4 Free Direct 1.21 ng/dL (0.76-1.46); Thyroid Stim Hormone (TSH) 2.96 uIU/mL (0.358-3.74); Triglycerides 53 mg/dL; Very Low Density Lipoprotein 11 mg/dL (5-40)
[2022-08-25 14:03] LABS: Erythrocyte Sedimentation Rate 7 mm/hr (0-30)
== END | disposition home or self-care (01) ==
PROVIDERS: PCP Internal Medicine; Referring Provider Nurse Practitioner Adult Health; Visit Provider Nurse Practitioner Adult Health
DX: Z79.899 Other long term (current) drug therapy (principal); M05.79 Rheumatoid arthritis with rheumatoid factor of multiple sites without organ or systems involvement; E10.65 Type 1 diabetes mellitus with hyperglycemia; E03.8 Other specified hypothyroidism; E53.9 Vitamin B deficiency, unspecified; E55.9 Vitamin D deficiency, unspecified; M81.0 Age-related osteoporosis without current pathological fracture; G89.29 Other chronic pain; M16.0 Bilateral primary osteoarthritis of hip; M47.9 Spondylosis, unspecified; M19.012 Primary osteoarthritis, left shoulder
CPT/HCPCS: 36415; 80053; 80061; 82043; 82306; 82607; 83036; 84439; 84443; 85025; 85652; 86140

== ENCOUNTER → 2022-10-22 | Outpatient (CLI) | payer OTHER, MEDICARE, SELFPAY ==
--- NOTE | 2022-10-22 11:25 | RAD_ITS ---
STUDY: X-RAY - LEFT FOOT CLINICAL: Female, 61 years old. left lateral foot injury x 2 weeks, slipped and fell, rolled foot TECHNIQUE: 3 view(s) of the foot. COMPARISON: None. FINDINGS: There is a healed fracture deformity in the neck of the fifth metatarsal bone. No acute fractures are present. Normal talus, calcaneus, and tarsal bones. Normal visualized subtalar, talonavicular, calcaneocuboid, tarsal and tarsometatarsal articulations. Normal remaining metatarsi. Normal metatarsophalangeal joint of the great toe. Normal tibial and fibular sesamoid bones. Normal interphalangeal joint of the great toe. Normal phalanges of the great toe. Normal second through fifth metatarsophalangeal joints. Normal interphalangeal joints and phalanges of the lesser toes. The soft tissue structures are unremarkable. RAD/Foot min 3 Views IMPRESSION: 1. There is a healed fracture deformity in the neck of the fifth metatarsal bone. No acute fractures are present. Electronically Signed: Ted Felder MD at 11:48 EDT ,
== END | disposition home or self-care (01) ==
LOC: MTRAD 11:21
PROVIDERS: PCP Internal Medicine; Referring Provider Internal Medicine; Visit Provider Internal Medicine
DX: M79.672 Pain in left foot (principal)
CPT/HCPCS: 73630

== ENCOUNTER → 2022-11-18 | Outpatient (CLI) | payer OTHER, MEDICARE, SELFPAY ==
--- NOTE | 2022-11-18 12:35 | BD_ITS ---
STUDY: DUAL ENERGY X-RAY ABSORPTIOMETRY / DXA REASON FOR EXAM: Female, 62 years old. 627.8Menopausal postmenopausal BONE DENSITY REASON FOR EXAM -- postmenopausal and osteoporosis TECHNIQUE: Bone Mineral Density (BMD) measurements of lumbar spine and bilateral hips were obtained. COMPARISON: Comparison is made with prior study November 06, 2020. FINDINGS: Lumbar Spine (L1-L4): g/cm2 (0.922) / T-score (-1.1) / Z-score (0.5) Findings are suggestive of osteopenia with a low fracture risk. Left Femur Total: g/cm2 (0.824) / T-score (-1.0) / Z-score (0.1) Left Femoral Neck: g/cm2 (0.511) / T-score (-3.0) / Z-score (-1.6) Right Femur Total: g/cm2 (0.816) / T-score (-1.0) / Z-score (0.1) Right Femoral Neck: g/cm2 (0.5-1) / T-score (-3.0) / Z-score (-1.5) The T-Scores on the most recent prior examination were: Lumbar Spine (L1-L4): There has been improvement of bone density since the previous examination. Left Femur Total: which represents an improvement of 1.8%. Right Femur Total: which represents an improvement of 3.7%. BD/Dexa Bone Density Study IMPRESSION: The patient is considered osteoporotic as outlined below according to World Regulo Organization (WHO) criteria with a high fracture risk. There has been improvement of bone density since the previous examination. Reference Information: The T-score is the number of standard deviations above or below the standard which is normal for young adults at their peak bone mineral density. The World Health Organization (WHO) interprets the T-scores as follows: Above -1 Normal bone density Between -1 and -2.5 Osteopenia Equal to / or below -2.5 Osteoporosis As a practical clinical guideline, osteopenia may be graded as follows: Mild -1 through -1.5 Moderate -1.6 through -2.0 Severe -2.1 through -2.4 The Z-score is the number of standard deviations above or below age-matched controls. A Z-score of less than -1.5 would be considered abnormal. References: 1. NIH Osteoporosis and Related Bone Diseases www osteo.org 2. International Society for Clinical Densitometry www iscd.org 3. National Osteoporosis Foundation www nof.org Electronically Signed: Salvador Pike MD at 9:07 EDT ,
== END | disposition home or self-care (01) ==
LOC: OPBD 12:26
PROVIDERS: PCP Internal Medicine; Referring Provider Internal Medicine; Visit Provider Internal Medicine
DX: Z78.0 Asymptomatic menopausal state (principal); M81.0 Age-related osteoporosis without current pathological fracture
CPT/HCPCS: 77080

== ENCOUNTER → 2023-01-04 | Outpatient (CLI) | payer OTHER, MEDICARE, SELFPAY ==
[2023-01-04 12:43] LABS: Absolute Lymphocyte Count 0.93 X10^3/uL (0.83-4.51); Absolute Neutrophil Count 3.7 X10^3/uL (2.0-7.7); Basophil# 0.02 X10^3/uL; Basophil% 0.4 % (0-1); Hematocrit 41.9 % (37-47); Hemoglobin 14.2 g/dL (12.0-15.0); Lymphocyte # 0.93 X10^3/ul (0.83-4.51); Lymphocyte % 18.2 % (19-41); Mean Corp Hgb Conc 33.9 g/dL (32-36); Mean Corpuscular Volume 100.2 fL (81-99); Mean Platelet Vol. 11.2 fl (6.2-12.0); Monocyte# 0.44 X10^3/uL; Monocyte% 8.6 % (0-10); NRBC Flagged by Analyzer 0 % (0-5); Neutrophil # 3.71 X10^3/uL (2.7-7.7); Neutrophil % 72.6 % (47-70); Platelet Count 166 K/mm3 (150-450); RBC Distribution Width CV 12.9 % (11.6-14.6); RBC Distribution Width SD 47.8 fl (35.1-43.9); Red Blood Count 4.18 M/mm3 (4.2-5.4); White Blood Count 5.1 K/mm3 (4.4-11.0)
[2023-01-04 12:47] LABS: Erythrocyte Sedimentation Rate 3 mm/hr (0-30)
[2023-01-04 12:59] LABS: Microalbumin,Random Urine 8.1 mg/L (NO RANGE EST.); Microalbumin:Creatinine Ratio 8.8 mg/g CRE (<30 mg/g CRE)
[2023-01-04 13:12] LABS: ALB/GLOB Ratio 1.3 RATIO (0.9-2.4); AST(SGOT) 41 U/L (15-37); Alanine Aminotransfer ALT/SGPT 45 U/L (13-56); Albumin, Serum 3.8 g/dL (3.2-5.0); Alkaline Phosphatase 105 U/L (45-117); Anion Gap 8 (5-15); BUN 13 mg/dL (7-18); BUN/Creat Ratio 20.4 RATIO (10-20); CRP 4.71 mg/L (0.0-3.0); Calcium,Total 9.1 mg/dL (8.5-10.1); Chloride 100 mmol/L (98-107); Cholesterol 196 mg/dL (200); Creatinine, Serum 0.64 mg/dL (0.55-1.02); EST Glomerular Filtration Rate 100 mL/min (>60); Est Glom Filt Rate - Afr Amer 121 mL/min (>60); Glucose 107 mg/dL (74-106); High Density Lipoprotein 126 mg/dL; Potassium 4.4 mmol/L (3.5-5.1); Protein, Total 6.8 g/dL (6.4-8.2); Sodium Level 135 mmol/L (136-145); T4 Free Direct 1.25 ng/dL (0.76-1.46); Thyroid Stim Hormone (TSH) 3.24 uIU/mL (0.358-3.74); Triglycerides 35 mg/dL; Very Low Density Lipoprotein 7 mg/dL (5-40)
[2023-01-04 13:13] LABS: Vitamin B12 495 pg/mL (211-911); Vitamin D,25 Hydroxy 73.8 ng/mL
[2023-01-04 14:03] LABS: Hemoglobin A1c 6.3 % (3.8-5.6)
[2023-01-05 04:07] LABS: AFP, Tumor Marker < 1.8 ng/mL (0.0-9.2); LDL, Direct 120295 70 mg/dL (0-99)
== END | disposition home or self-care (01) ==
LOC: MTLAB 10:10
PROVIDERS: PCP Internal Medicine; Referring Provider Internal Medicine; Visit Provider Internal Medicine
DX: E10.65 Type 1 diabetes mellitus with hyperglycemia (principal); M05.79 Rheumatoid arthritis with rheumatoid factor of multiple sites without organ or systems involvement; E10.9 Type 1 diabetes mellitus without complications; K76.0 Fatty (change of) liver, not elsewhere classified; E78.2 Mixed hyperlipidemia; E03.8 Other specified hypothyroidism; E55.9 Vitamin D deficiency, unspecified; M47.9 Spondylosis, unspecified; M16.0 Bilateral primary osteoarthritis of hip; G89.29 Other chronic pain; M19.011 Primary osteoarthritis, right shoulder; M19.012 Primary osteoarthritis, left shoulder; M81.0 Age-related osteoporosis without current pathological fracture
CPT/HCPCS: 36415; 80053; 80061; 82043; 82105; 82306; 82570; 82607; 83036; 83721; 84439; 84443; 85025; 85652; 86140

== ENCOUNTER → 2023-01-12 | Outpatient (CLI) | payer OTHER, MEDICARE, SELFPAY | END | disposition home or self-care (01) | LOC: RAD 17:03 | PROVIDERS: PCP Internal Medicine; Referring Provider Internal Medicine; Visit Provider Internal Medicine | DX: M54.2 Cervicalgia (principal) ==

== ENCOUNTER → 2023-01-18 | Outpatient (CLI) | payer OTHER, MEDICARE, SELFPAY ==
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
== END | disposition home or self-care (01) ==
LOC: MTRAD 14:52
PROVIDERS: PCP Internal Medicine; Referring Provider Internal Medicine; Visit Provider Internal Medicine
DX: M54.2 Cervicalgia (principal)
CPT/HCPCS: 72050

== ENCOUNTER → 2023-02-22 | Outpatient (CLI) | payer OTHER, MEDICARE, SELFPAY ==
--- NOTE | 2023-02-22 12:52 | RAD_ITS ---
INDICATION: Cough -- cough, EXAMINATION/TECHNIQUE: X-RAY - XR Chest 2 Views COMPARISON: CTA chest May 30, 2019 FINDINGS: LINES/DEVICES: None. LUNGS: No consolidation, edema or effusion. No pneumothorax. MEDIASTINUM AND CARDIOVASCULAR STRUCTURES: Cardiac silhouette not enlarged. Central airways and mediastinal contour are unremarkable. BONES AND SOFT TISSUES: Metal hardware from prior anterior lower cervical fixation again noted. There are generally mild degenerative changes in the thoracic spine, the most prominent disc height narrowing and anterolateral endplate spurring at T9-10 RAD/Chest PA and Lateral IMPRESSION: No acute cardiopulmonary disease. Electronically Signed: Kali Maldonado MD at 16:00 EDT Reading Location ID and State: [id number] / Unknown , Service support ,
== END | disposition home or self-care (01) ==
LOC: MTRAD 12:52
PROVIDERS: PCP Internal Medicine; Referring Provider Internal Medicine; Visit Provider Internal Medicine
DX: R05.9 Cough, unspecified (principal)
CPT/HCPCS: 71046

== ENCOUNTER → 2023-03-08 | Outpatient (CLI) | payer OTHER, MEDICARE, SELFPAY ==
--- NOTE | 2023-03-08 09:06 | US_ITS ---
STUDY: ULTRASOUND BREAST - RIGHT REASON FOR EXAM: Female, 62 years old. Palpable lump in the right breast. TECHNIQUE: Axial and longitudinal images of the RIGHT breast were performed with a high resolution ultrasound transducer. # OF IMAGES: 20 COMPARISON: Comparison is made with prior mammogram done earlier in the day as well as prior ultrasound of the right breast dated November 02, 2018. FINDINGS: RIGHT Breast: The lateral aspect of the breast was examined. The palpable lump corresponds to a 2 cm x 1.8 cm complex cystic nodule at the 8:00 position breast at 3 cm from nipple.. A tissue clip marker is seen within. US/Breast Limited Unilateral IMPRESSION: Essentially stable examination. ASSESSMENT CATEGORY: BIRADS Category 2: Benign. A letter regarding these results will be sent to the patient by the facility within 30 days. Electronically Signed: Salvador Pike MD at 11:26 EDT ,
--- NOTE | 2023-03-08 09:06 | BI_ITS ---
MAMMOGRAPHY - BILATERAL DIAGNOSTIC REASON FOR EXAM: Female, 62 years old. Known right breast lump. PERTINENT HISTORY: Non-contributory. History of prior bilateral needle biopsies. TECHNIQUE: Digital bilateral breast zita (3D mammographic acquisition) in the CC and MLO projections. 2-D mediolateral oblique (MLO) and craniocaudad (CC) views of both breasts were obtained. CAD: Full Field Digital Mammography with Computer Added Detection was performed. COMPARISON: Comparison is made with prior study dated April 28, 2022 and April 17, 2021. FINDINGS: Breast Composition: The breasts are extremely dense, which lowers the sensitivity of mammography. There are no dominant masses or suspicious calcifications. Stable 2 cm oval shaped nodular density in the deep mid outer aspect of the right breast. A tissue clip marker is seen within it. This corresponds to the palpable lump. Stable benign appearing bilateral axillary lymph nodes. No other significant abnormalities are identified. There has been no significant change since the prior study. BI/DIAG MAMM W/CAD, BILAT IMPRESSION: Stable bilateral diagnostic mammogram. Correlation with targeted ultrasound of the right breast is recommended for further evaluation. ASSESSMENT CATEGORY: BIRADS Category 0: Incomplete. Need additional imaging evaluation. A letter regarding these results will be sent to the patient by the facility within 30 days. Approximately 10% of breast cancers are not detected by mammography. A normal mammogram should not delay biopsy of a clinically suspicious abnormality. Electronically Signed: Salvador Pike MD at 11:24 EDT ,
== END | disposition home or self-care (01) ==
LOC: OPBI 09:05
PROVIDERS: PCP Internal Medicine; Referring Provider Internal Medicine; Visit Provider Internal Medicine
DX: N63.13 Unspecified lump in the right breast, lower outer quadrant (principal)
CPT/HCPCS: 76642; 77062; 77066; G0279

== ENCOUNTER → 2023-05-11 | Outpatient (CLI) | payer OTHER, MEDICARE, SELFPAY ==
--- NOTE | 2023-05-11 09:26 | US_ITS ---
STUDY: ABDOMINAL ULTRASOUND - RIGHT UPPER QUADRANT; ELASTOGRAPHY REASON FOR VISIT: Female, 62 years old. Fatty infiltration of the liver. TECHNIQUE: Ultrasound evaluation of the right upper quadrant was performed with real-time and static gonzales-scale imaging. Point quantification shear wave elastography was performed ([employer]). TECHNICAL QUALITY: Adequate. COMPARISON: Comparison is made with prior study dated April 28, 2022. FINDINGS: Liver: The liver measures 13.7 cm. There is increased echogenicity consistent with fatty infiltration. The bile ducts are within normal limits. There is hepatic color flow. The direction of portal flow is hepatopetal. There is no demonstrated mass lesion. Median liver stiffness measured 5.3 kPa. Gallbladder: Normal distended gallbladder. The gallbladder wall measures 1.6 mm. There is a negative sonographic Martins''s sign. There is no pericholecystic fluid. There are no gallstones. Common Bile Duct (C.B.D.): The common bile duct measures 2.5 mm. Pancreas: There is normal echogenicity of the visualized pancreas. There is no demonstrated pancreatic mass or cyst. Right Kidney: Normal size of the right kidney. The right kidney measures 11.4 cm x 5 cm x 4.1 cm. Normal renal cortex. The right cortex measures 1.3 cm. There is no demonstrated renal mass or cyst. There is no right hydronephrosis. US/ABD Limited w/ Elastography IMPRESSION: 1. Liver stiffness measures 5.3 kPa compatible with F0-F1 (Normal to mild liver fibrosis) Metavir score. Electronically Signed: Salvador Pike MD at 10:40 EDT ,
== END | disposition home or self-care (01) ==
PROVIDERS: PCP Internal Medicine; Referring Provider Internal Medicine; Visit Provider Internal Medicine
DX: K76.0 Fatty (change of) liver, not elsewhere classified (principal)
CPT/HCPCS: 91200; 76705; 76981

== ENCOUNTER → 2023-05-20 | Outpatient (CLI) | payer OTHER, MEDICARE, SELFPAY ==
[2023-05-20 12:21] LABS: Erythrocyte Sedimentation Rate < 1 mm/hr (0-30)
[2023-05-20 12:43] LABS: Microalbumin,Random Urine 13.4 mg/L (NO RANGE EST.); Microalbumin:Creatinine Ratio 12.8 mg/g CRE (<30 mg/g CRE)
[2023-05-20 12:49] LABS: ALB/GLOB Ratio 1.3 RATIO (0.9-2.4); AST(SGOT) 23 U/L (15-37); Alanine Aminotransfer ALT/SGPT 38 U/L (13-56); Albumin, Serum 3.8 g/dL (3.2-5.0); Alkaline Phosphatase 111 U/L (45-117); Anion Gap 5 (5-15); BUN 13 mg/dL (7-18); BUN/Creat Ratio 22.6 RATIO (10-20); CRP < 2.90 mg/L (0.0-3.0); Calcium,Total 8.7 mg/dL (8.5-10.1); Chloride 104 mmol/L (98-107); Cholesterol 191 mg/dL (200); Creatinine, Serum 0.57 mg/dL (0.55-1.02); EST Glomerular Filtration Rate 113 mL/min (>60); Est Glom Filt Rate - Afr Amer 136 mL/min (>60); Globulin 2.9 g/dL (2.2-4.2); Glucose 136 mg/dL (74-106); High Density Lipoprotein 94 mg/dL; Potassium 4.1 mmol/L (3.5-5.1); Protein, Total 6.7 g/dL (6.4-8.2); Sodium Level 137 mmol/L (136-145); T4 Free Direct 1.14 ng/dL (0.76-1.46); Thyroid Stim Hormone (TSH) 1.96 uIU/mL (0.358-3.74); Triglycerides 41 mg/dL; Very Low Density Lipoprotein 8 mg/dL (5-40); Vitamin B12 517 pg/mL (211-911); Vitamin D,25 Hydroxy 68.3 ng/mL
[2023-05-21 04:07] LABS: LDL, Direct 120295 96 mg/dL (0-99)
== END | disposition home or self-care (01) ==
LOC: MTLAB 09:55
PROVIDERS: PCP Internal Medicine; Referring Provider Internal Medicine; Visit Provider Internal Medicine
DX: M05.79 Rheumatoid arthritis with rheumatoid factor of multiple sites without organ or systems involvement (principal); E11.65 Type 2 diabetes mellitus with hyperglycemia; Z79.899 Other long term (current) drug therapy; G89.29 Other chronic pain; M80.00XA Age-related osteoporosis with current pathological fracture, unspecified site, initial encounter for fracture; M16.0 Bilateral primary osteoarthritis of hip; E53.9 Vitamin B deficiency, unspecified; E04.1 Nontoxic single thyroid nodule; E03.9 Hypothyroidism, unspecified
CPT/HCPCS: 36415; 80053; 80061; 82043; 82306; 82570; 82607; 83036; 83721; 84439; 84443; 85652; 86140

== ENCOUNTER → 2023-06-24 | Outpatient (CLI) | payer OTHER, MEDICARE, SELFPAY ==
--- NOTE | 2023-06-24 13:10 | US_ITS ---
INDICATION: thyroid nodule EXAMINATION: Ultrasound US Thyroid (eg thyroid, parathyroid, parotid) TECHNIQUE: Claudio scale and color doppler imaging was performed of the thyroid gland. COMPARISON: No relevant prior comparison study available FINDINGS: RIGHT THYROID LOBE: 4.7 x 1.6 x 0.9 cm. The echotexture is heterogenous. [No thyroid nodules are present. LEFT THYROID LOBE: 4.6 x 0.9 x 1.2 cm. The echotexture is heterogenous. [No thyroid nodules are present. ISTHMUS: 3.0 mm. There is a 4.0 x 2.4 mm well-circumscribed anechoic focus within the isthmus right of midline. US/Thyroid IMPRESSION: Heterogenous thyroid gland may be secondary to a history of thyroiditis. 4.0 x 2.4 mm cyst within the isthmus right of midline. Electronically Signed: Karen Torrez MD at 9:33 EST ,
== END | disposition home or self-care (01) ==
LOC: US 13:08
PROVIDERS: PCP Internal Medicine; Referring Provider Internal Medicine; Visit Provider Internal Medicine
DX: E04.1 Nontoxic single thyroid nodule (principal)
CPT/HCPCS: 76536

== ENCOUNTER 2023-07-28 11:00 | Outpatient (RCR) | payer OTHER, MEDICARE, SELFPAY ==
--- NOTE | 2023-03-21 18:06 | HP.PTEVAL_ITS ---
Patient's Visit Information Visit Information Visit Information: VIOLETA HENNING is a 62 year old F referred to Physical Therapy by ELENA HUGHES with a diagnosis of LUMBAR RADICULOPATHY. Date of Evaluation: 03/21/23 Physical Therapist: Melquiades Salmeron, PT, Cert MDT, OCS Visit Plan Frequency: 2-3x /Week Duration: 6-8WEEKS Plan: PT INTERVTIONS AQUATIC THERAPY ,DLS ,POSTURAL EX'S ,LLE STRENGTHNEING GRADE ROM AND FLEXABILITY Subjective Subjective: This 62 y/o female presents to physical therapy with lumbar radiculopathy. Patient has back pain for many years .Patient had lumbar discectomy/laminectomy [address] Johnson at [facility]. Recently patient go ill with bronchitis sick for 6weeks ~ January 29 2023. Patient was coughing a lot thus pain radiating on left side. Seen DR Hughes. Patient MRI showed stenosis and anterolisthesis L2-3 3mm , L4-5 3 mm ,Dr wants to try Aquatic Therapy and had [facility] pain management epidural injection on March 14 . Patient symptoms didn't help. Medication gabapentin. Location LS buttock to ankle /foot. Patient has paresthesia/tingling in foot. Pain is described as ache ,otherwise sharp stabbing pain. Patient pain affects sleeping. Aggravating factors walking and standing extended ,sitting unable to bend or lift and worse as day goes on. Alleviating factors medication. Patient DR wants to hold off surgery but if has surgery fusion and paulina placement. Coughing/sneezing + . Bowel/bladder. No abnormal night pain. Patient condition affects QOL and function and ADLS. Patient goals to decrease back pain and avoid surgery. PMH: glaucoma left legally blind ,RA ,DM-2 , cervical fusion ,lumbar surgery Osteoporosis. Left leg weakness. SOCIAL: VOCATION: unemployed , Pain Left Back: Pain Intensity (Out of 10): 5 Pain Intensity Range: 10 Left Lower Extremity: Pain Intensity (Out of 10): 5 Pain Intensity Range: 10 Comment: buttock -ankle Objective Objective: POSTURE: mild forward posture GAIT: reciprocal pattern slow giovanna forward left foot ankle decrease heel strike with foot slap due to weakness antalgic gait NEURO: c/o paresthesia/tingling left foot ,reflexes L3-4 ,L4-5,L5-S1 1/3 ,myotome left leg PALPATION: unremarkable MMT: ( peak force) right quads 10.2 ,hamstrings 10.5 ,hip flexion 18.6 ,DF 7.6 LUMBAR ROM: flexion mod loss ,extension severe loss pain ,side glides mod glides FLEXABLITY: hamstrings min loss Special Tests L/S Slump test left side: Positive L/S Slump test right side: Negative L/S Left Straight Leg Raise: Positive L/S Right Straight Leg Raise: Negative Balance/Special Test Scores Oswestry Low Back Score: 40 Goals Goal 1:: Patient to be I with Aquatic Therapy program . Goal Time Frame: 6-8 Weeks Goal 2:: Patient to normalize gait pattern 70% with less pain Goal Time Frame: 6-8 Weeks Goal 3:: Patient to improve lumbar ROM for function of recovery for ADLS and put on shoes Goal Time Frame: 6-8 Weeks Goal 4:: Patient to improve peak force with 10 # or > to improve function Goal Time Frame: 6-8 Weeks Goal 5:: Patient to improve b ack oswestry by 5 points to improve QOL Goal Time Frame: 6-8 Weeks Goal 6:: Patient to demonstrate 40% improvement with less pain Goal Time Frame: 6-8 Weeks Rehabilitation Potential Physical Therapy Diagnosis: This patient has stenosis and anterolisthesis with pain left leg ,poor ROM lumbar , weakness left leg , antalgic gait impairs ADL's and housework tasks thus benefit from skilled PT Rehabilitation Potential: Good Anticipated Interventions Patient/Client Instruction: Educate patient on: Condition and Plan of Care For the Purpose of:: To decrease pain, To improve nutrient delivery to tissue, To improve muscle performance and motor function, To increase tolerance to activity/condition/position, To decrease level of supervision to perform tasks, To improve health of tissue, To decrease soft tissue restriction, To increase flexibility/ROM and To improve endurance Therapeutic Exercise to Include: Strength training, Postural training, Flexi bilty training, In an aquatic setting, Active ROM and Dynamic Lumbar Stabilization For the Purpose of:: To decrease pain, To increase ROM, To improve muscle performance and motor function, To increase tolerance to activity/condition/position, To improve ability of physical actions for home/community/work/leisure, To improve gait and locomotor functions, To improve health of tissue, To increase flexibility/ROM, To reduce risk of recurrence, To prevent re-injury and To improve tolerance to ADL's Text: Thank you for the opportunity to evaluate your patient. For Medicare and Medicare HMO plans, please review the plan of care and approve it. It will need to be FAXED BACK to us at [phone] for Medicare purposes. For Medicare only, by signing this I certify the plan of care. Please let me know if there are questions or concerns regarding this plan of care. Physician Signature: Date:
--- NOTE | 2023-04-14 10:35 | HP.PTREVAL_ITS ---
Re-Evaluation Intro: ELENA HUGHES, It has been my pleasure to treat VIOLETA HENNING over the last 8 visits for LUMBAR RADICULOPATHY. Please see the progress note below for an update on the physical therapy plan of care! Subjective Subjective: Patient injection Tues which made symptoms worse sore but feeling better Objective Objective/Function: Objective: POSTURE: mild forward posture GAIT: reciprocal pattern slow giovanna forward left foot ankle decrease heel strike with foot slap due to weakness antalgic gait NEURO: c/o paresthesia/tingling left foot ,reflexes L3-4 ,L4-5,L5-S1 1/3 ,myotome left leg PALPATION: unremarkable MMT: ( peak force) right quads 29.2 ,left 37.5 ,hamstrings left 20.5 ,15.6 ,hip flexion right 18.6 ,left 19.6 ,24.7 ,DF 13.6 left LUMBAR ROM: flexion mod loss ,extension severe loss pain ,side glides mod glides FLEXABLITY: hamstrings min loss Plan Plan Plan: PT INTERVTIONS AQUATIC THERAPY ,DLS ,POSTURAL EX'S ,LLE STRENGTHNEING GRADE ROM AND FLEXABILITY Balance/Gait/Functional tests Balance/Special Test Scores Oswestry Low Back Score: 28 Goals Goals Goal 1:: Patient to be I with Aquatic Therapy program . Goal Time Frame: 6-8 Weeks Goal Progress: Progressing Goal 2:: Patient to normalize gait pattern 85% with less pain( NEW GOAL) Goal Time Frame: 6-8 Weeks Goal Progress: Progressing Goal 3:: Patient to improve lumbar ROM for function of recovery for ADLS and put on shoes Goal Time Frame: 6-8 Weeks Goal 4:: Patient to improve peak force with 10 # or > to improve function( new goal) Goal Time Frame: 6-8 Weeks Goal 5:: Patient to improve b ack oswestry by 5 points to improve QOL Goal Time Frame: 6-8 Weeks Goal 6:: Patient to demonstrate 40% improvement with less pain Goal Time Frame: 6-8 Weeks Anticipated Interventions Anticipated Interventions Patient/Client Instruction: Educate patient on: Condition and Plan of Care For the Purpose of:: To decrease pain, To improve nutrient delivery to tissue, To improve muscle performance and motor function, To increase tolerance to activity/condition/position, To decrease level of supervision to perform tasks, To improve health of tissue, To decrease soft tissue restriction, To increase flexibility/ROM and To improve endurance Therapeutic Exercise to Include: Strength training, Postural training, Flexibilty training, In an aquatic setting, Active ROM and Dynamic Lumbar Stabilization For the Purpose of:: To decrease pain, To increase ROM, To improve muscle performance and motor function, To increase tolerance to ac tivity/condition/position, To improve ability of physical actions for home/community/work/leisure, To improve gait and locomotor functions, To improve health of tissue, To increase flexibility/ROM, To reduce risk of recurrence, To prevent re-injury and To improve tolerance to ADL's Re-Evaluation Ending Re-evaluation ending: Please do not hesitate to contact me at [phone] by phone or if you have questions or concerns regarding this new plan of care! Sincerely, Melquiades Salmeron, PT, Cert MDT, OCS
--- NOTE | 2023-06-27 15:53 | HP.OTEVAL ---
Patient's Visit Information Visit Information Visit Information: VIOLETA HENNING is a 62 year old F, referred to Occupational Therapy by ELENA HUGHES, with a diagnosis of right distal radius fx. Date of Evaluation: 06/27/23 Occupational Therapist: Katie Medina, OTR/Pratibha, CHT Subjective Subjective: This 62 year old female was seen for OT eval with dx of right distal radius fx DOI was on fall 04/16/23 while pt was shopping. DOS was on 04/22/23 ORIF with ulna pinning (9 weeks and 3 days s/p) pt is right handed pt states she is limited with use of right hand with all ADLs and IADLs- pt states she would like to gain more strength and ROM to return to her PLOF. Pain right wrist: Current Pain Intensity: 2 Pain Intensity Range: 6 ROM Forearm: right/left WNL Wrist: right 65/55 left 75/75 ROM Comments: pt demo full functional composite fist right RD 15* UD 25* left RD 20* UD 35 Strength Automatic Trimming Sewer: right 35# left 45# Lateral Pinch: right 10# left 10# Tripod Pinch: right 10# left 10# Sensation Sensation Comments: states tingling at night ( this is not new) Quick DASH-Disab of Arm,Shoulder& Hand Quick DASH Score: 56.8175 Goals Goal:: pt will demo a increase in right freezing room worker strength by 10# to increase pts ind. with ADls and IADls by d.c Goal:: pt will demo a increase in right wrist flexion by 10* or greater to increase pts IND with ADLs and IADLs by d/c Goal:: pt will report no pain greater than 1/10 with use of right UE with ADLs by d.c Goal:: Pt will demo understanding of joint protection and ergonomics when performing BADLs and IADLs by d/c Pt will demo understanding of adaptive Equipment use to decrease stress on joints to allow pt to perform BADSL and IADLS at CHERI level. Rehabilitation General Assessment: Pt arrives 9 weeks s/p right ORIF distal radius demo with a decrease in right wrist ROM and weakness limiting pts IND. with ADls and IADls pt would benefit from skilled OT services 1-2x week for 3-4 weeks to return pt to her PLOF. Today therapist ed. pt on AROM and PROM of wrist flex/ext as well as median nerve glides- pt demo understanding and agree to POC. Rehabilitation Potential: Good Anticipated Interventions Anticipated Interventions: A/AAROM/PROM, Strengthening, Scar Care, Triggerpoint Release, Modalities, Orthoses, Joint Protection/Energy Conservation, ADL Training, Education re assistive Equipment and Home Program Visit Plan Frequency: 1-2x /Week Duration: 4 Weeks TEXT: Thank you for the opportunity to evaluate your patient. For Medicare and Medicare HMO plans, please review the plan of care and approve it. It will need to be FAXED BACK to us at [phone] for Medicare purposes. Please let me know if there are questions or concerns regarding this plan of care. Physician Signature: Date:
--- NOTE | 2023-07-11 14:41 | HP.OTDCSUM ---
Discharge Summary D/C Summary: It has been my pleasure to treat VIOLETA HENNING under orders from ELENA HUGHES, for the diagnosis of right distal radius fx for a total of 3 visit(s). Please see the following information for a summary of their discharge status. Overall Improvement % Improvement: 80 Objective Objective/Function: left wrist ROM 75/45 left wrist flexion after 55 right chief projectionist 40# increase from 35# pts ROM is WFL following ORIF. pt ed. on wrist mobilization as well as healing. pt demo understanding and agree to POC. Goals Patient Goals: Regain Mobility, Use Hand/Wrist/Arm Normally Again and Be More Independent in ADLS Goal:: pt will demo a increase in right chief projectionist strength by 10# to increase pts ind. with ADls and IADls by d.c Goal:: pt will demo a increase in right wrist flexion by 10* or greater to increase pts IND with ADLs and IADLs by d/c Goal:: pt will report no pain greater than 1/10 with use of right UE with ADLs by d.c Goal:: Pt will demo understanding of joint protection and ergonomics when performing BADLs and IADLs by d/c Pt will demo understanding of adaptive Equipment use to decrease stress on joints to allow pt to perform BADSL and IADLS at CHERI level. Plan Plan: pt D/C with HEP of stretching return to use strengthening as able D/C Information Discharge Comments: pt d/c at this time with HEP of stretching and return to use as tolerated- pt met OT goals at this time with increase in ROM and strength. pt ed. on healing process and to allow time to return to her PLOF. d/c sentence: If there are questions or concerns regarding this patient's occupational therapy, please fell free to call me at [phone]. Thank you for the referral of this patient. Sincerely, Katie Medina, OTR/L, CHT
--- NOTE | 2023-07-28 12:32 | HP.PTDCS(2) ---
Discharge Summary D/C Summary: It has been my pleasure to treat VIOLETA HENNING referred by ELENA HUGHES, with the diagnosis of for a total of visit(s). Discharge Date: Please see the following information for a summary of their discharge status. D/C Information d/c sentence: If there are questions or concerns regarding this patient's physical therapy, please feel free to call me at [phone]. Thank you for the referral of this patient. Sincerely, Melquiades Salmeron, PT, Cert MDT, OCS
== END 2023-07-28 19:00 | disposition home or self-care (01) ==
LOC: PT 11:00
PROVIDERS: PCP Internal Medicine
DX: M54.16 Radiculopathy, lumbar region (principal)
CPT/HCPCS: 97110; 97113; 97162; 97166; 97530

== ENCOUNTER → 2023-08-25 | Outpatient (CLI) | payer OTHER, MEDICARE, SELFPAY ==
[2023-08-25 10:32] LABS: Absolute Lymphocyte Count 0.92 X10^3/uL (0.83-4.51); Absolute Neutrophil Count 2.3 X10^3/uL (2.0-7.7); Basophil# 0.02 X10^3/uL; Basophil% 0.6 % (0-1); Hemoglobin 13.2 g/dL (12.0-15.0); Lymphocyte # 0.92 X10^3/ul (0.83-4.51); Lymphocyte % 25.6 % (19-41); Mean Corpuscular Hgb 33.3 pg (27.0-32.0); Mean Platelet Vol. 11.6 fl (6.2-12.0); Monocyte# 0.36 X10^3/uL; NRBC Flagged by Analyzer 0 % (0-5); Neutrophil # 2.29 X10^3/uL (2.7-7.7); Neutrophil % 63.5 % (47-70); Platelet Count 123 K/mm3 (150-450); Red Blood Count 3.96 M/mm3 (4.2-5.4); White Blood Count 3.6 K/mm3 (4.4-11.0)
[2023-08-25 10:50] LABS: Erythrocyte Sedimentation Rate < 1 mm/hr (0-30)
[2023-08-25 10:58] LABS: Microalbumin,Random Urine 21.1 mg/L (NO RANGE EST.)
[2023-08-25 11:07] LABS: ALB/GLOB Ratio 1.4 RATIO (0.9-2.4); AST(SGOT) 30 U/L (15-37); Alanine Aminotransfer ALT/SGPT 45 U/L (13-56); Albumin, Serum 3.9 g/dL (3.2-5.0); Alkaline Phosphatase 96 U/L (45-117); Anion Gap 6 (5-15); BUN 16 mg/dL (7-18); BUN/Creat Ratio 25.2 RATIO (10-20); CRP < 2.90 mg/L (0.0-3.0); Chloride 104 mmol/L (98-107); Cholesterol 206 mg/dL (200); Creatinine, Serum 0.64 mg/dL (0.55-1.02); EST Glomerular Filtration Rate 100 mL/min (>60); Est Glom Filt Rate - Afr Amer 121 mL/min (>60); Globulin 2.7 g/dL (2.2-4.2); Glucose 128 mg/dL (74-106); High Density Lipoprotein 109 mg/dL; Potassium 4.2 mmol/L (3.5-5.1); Protein, Total 6.6 g/dL (6.4-8.2); Sodium Level 137 mmol/L (136-145); T4 Free Direct 1.28 ng/dL (0.76-1.46); Thyroid Stim Hormone (TSH) 1.95 uIU/mL (0.358-3.74); Triglycerides 41 mg/dL; Very Low Density Lipoprotein 8 mg/dL (5-40)
[2023-08-25 13:44] LABS: Hemoglobin A1c 6.2 % (3.8-5.6)
[2023-08-25 14:27] LABS: Vitamin B12 601 pg/mL (211-911); Vitamin D,25 Hydroxy 85.4 ng/mL
== END | disposition home or self-care (01) ==
LOC: MTLAB 09:19
PROVIDERS: PCP Internal Medicine; Referring Provider Internal Medicine Endocrinology, Diabetes & Metabolism; Visit Provider Internal Medicine Endocrinology, Diabetes & Metabolism
DX: E10.65 Type 1 diabetes mellitus with hyperglycemia (principal); E55.9 Vitamin D deficiency, unspecified; E53.9 Vitamin B deficiency, unspecified; M47.9 Spondylosis, unspecified; Z79.899 Other long term (current) drug therapy
CPT/HCPCS: 36415; 80053; 80061; 82043; 82306; 82607; 83036; 84439; 84443; 85025; 85652; 86140

== ENCOUNTER → 2023-08-30 | Outpatient (CLI) | payer OTHER, MEDICARE, SELFPAY ==
[2023-08-30 16:34] LABS: Amphetamine Urine VISTA NEGATIVE (<1000 ng/mL); Barbiturate Urine VISTA NEGATIVE (< 200 ng/mL); Benzodiazepine Urine VISTA NEGATIVE (< 200 ng/mL); Cocaine Urine VISTA NEGATIVE (< 300 ng/mL); Ecstacy Urine VISTA NEGATIVE (< 500 ng/mL); Methadone Urine VISTA NEGATIVE (< 300 ng/mL); PCP Urine VISTA NEGATIVE (< 25 ng/mL); THC Urine VISTA NEGATIVE (< 50 ng/mL); Vista UDS pH Range 5
== END | disposition home or self-care (01) ==
LOC: MTLAB 12:31
PROVIDERS: PCP Internal Medicine
DX: G89.29 Other chronic pain (principal); M05.79 Rheumatoid arthritis with rheumatoid factor of multiple sites without organ or systems involvement
CPT/HCPCS: 80307; 80346

== ENCOUNTER → 2023-10-26 | Outpatient (CLI) | payer OTHER, MEDICARE, SELFPAY ==
[2023-10-26 12:09] LABS: Platelet Count 131 K/mm3 (150-450)
== END | disposition home or self-care (01) ==
PROVIDERS: PCP Internal Medicine; Referring Provider Internal Medicine; Visit Provider Internal Medicine
DX: D69.1 Qualitative platelet defects (principal)
CPT/HCPCS: 36415; 85049

== ENCOUNTER → 2023-10-28 | Outpatient (CLI) | payer OTHER, MEDICARE, SELFPAY ==
--- NOTE | 2023-10-28 15:48 | STRESSREP ---
Stress Test Report Pharmacologic myocardial perfusion stress test. 62-year-old lady with a history of chest pain Resting EKG demonstrates sinus rhythm with a rate of 70 bpm. Resting blood pressure is 142/70 mmHg. 0.4 mg of regadenoson was infused per usual protocol followed by rapid intravenous saline flush injection. Continuous EKG monitoring was performed. The maximum heart rate was 102 bpm which was 64% of max impacted heart rate the maximum workload was 1 metabolic equivalent. At rest there were no ST or T wave changes noted to suggest ischemia and at peak infusion nonspecific ST changes were noted which did not meet the criteria for ischemia. No clinical angina is noted. The final blood pressure was 128/70 mmHg. Myocardial perfusion protocol. 11.3 mCi of technetium 99m sestamibi was injected at rest. 0.4 mg of regadenoson was infused per usual protocol. At peak infusion 33.8 mCi of technetium 99m sestamibi was injected stress images were obtained stress and rest images were reconstructed and compared in the short axis vertical long and horizontal long axis. Gated images were also obtained. Perfusion SPECT analysis: Review of the stress images demonstrate normal uptake of tracer noted in all areas of the myocardium. The resting images similar demonstrated normal uptake of tracer noted in all areas of the myocardium. No areas of reversibility are noted to suggest ischemia and no previous infarct is noted. Gated SPECT analysis: The gated ejection fraction is 78%. Conclusion: Normal pharmacologic myocardial perfusion stress test. Preserved ejection fraction.
== END | disposition home or self-care (01) ==
LOC: CVS 06:31
PROVIDERS: PCP Internal Medicine; Referring Provider Internal Medicine; Visit Provider Internal Medicine
DX: R07.9 Chest pain, unspecified (principal)
CPT/HCPCS: 78452; 93017; A9500; A4216; J2785

== ENCOUNTER → 2023-11-08 | Outpatient (CLI) | payer OTHER, MEDICARE, SELFPAY ==
--- NOTE | 2023-11-08 11:50 | RAD_ITS ---
STUDY: X-RAY - UNILATERAL RIBS ( RIGHT ) REASON FOR EXAM: Female, 62 years old. Right sided rib pain -- right sided rib pain TECHNIQUE: 2 view(s) of the ribs. COMPARISON: Comparison is made with prior study dated March 18, 2020. FINDINGS: Normal visualized ribs without a demonstrated fracture. The visualized lung is clear and expanded. RAD/Ribs Unil 2V No CXR IMPRESSION: Normal x-ray examination of the ribs. Electronically Signed: Salvador Pike MD at 13:30 EDT ,
== END | disposition home or self-care (01) ==
LOC: MTRAD 11:48
PROVIDERS: PCP Internal Medicine; Referring Provider Internal Medicine; Visit Provider Internal Medicine
DX: R07.81 Pleurodynia (principal)
CPT/HCPCS: 71100

== ENCOUNTER → 2023-12-06 | Outpatient (CLI) | payer OTHER, MEDICARE, SELFPAY ==
[2023-12-06 12:16] LABS: Absolute Lymphocyte Count 0.93 X10^3/uL (0.83-4.51); Absolute Neutrophil Count 2.9 X10^3/uL (2.0-7.7); Basophil# 0.02 X10^3/uL; Basophil% 0.5 % (0-1); Eosinophil# 0.01 X10^3/uL; Eosinophils% 0.2 % (0-5); Hematocrit 40.6 % (37-47); Hemoglobin 13.3 g/dL (12.0-15.0); Lymphocyte # 0.93 X10^3/ul (0.83-4.51); Lymphocyte % 21.8 % (19-41); Mean Corp Hgb Conc 32.8 g/dL (32-36); Mean Corpuscular Hgb 32.9 pg (27.0-32.0); Mean Corpuscular Volume 100.5 fL (81-99); Mean Platelet Vol. 11.2 fl (6.2-12.0); Monocyte# 0.36 X10^3/uL; Monocyte% 8.5 % (0-10); NRBC Flagged by Analyzer 0 % (0-5); Neutrophil # 2.93 X10^3/uL (2.7-7.7); Neutrophil % 68.8 % (47-70); POSITIVE COUNT YES; RBC Distribution Width CV 13.1 % (11.6-14.6); RBC Distribution Width SD 48.5 fl (35.1-43.9); Red Blood Count 4.04 M/mm3 (4.2-5.4); White Blood Count 4.3 K/mm3 (4.4-11.0)
[2023-12-06 12:28] LABS: Erythrocyte Sedimentation Rate 4 mm/hr (0-30)
[2023-12-06 12:40] LABS: Platelet Count 122 K/mm3 (150-450)
[2023-12-06 12:58] LABS: Vitamin B12 726 pg/mL (211-911); Vitamin D,25 Hydroxy 76.6 ng/mL
[2023-12-06 13:07] LABS: ALB/GLOB Ratio 1.4 RATIO (0.9-2.4); AST(SGOT) 63 U/L (15-37); Alanine Aminotransfer ALT/SGPT 88 U/L (13-56); Albumin, Serum 3.9 g/dL (3.2-5.0); Alkaline Phosphatase 98 U/L (45-117); Anion Gap 4 (5-15); BUN 11 mg/dL (7-18); BUN/Creat Ratio 18.8 RATIO (10-20); CRP 3.08 mg/L (0.0-3.0); Calcium,Total 8.8 mg/dL (8.5-10.1); Chloride 107 mmol/L (98-107); Cholesterol 205 mg/dL (200); Creatinine, Serum 0.59 mg/dL (0.55-1.02); EST Glomerular Filtration Rate 110 mL/min (>60); Est Glom Filt Rate - Afr Amer 133 mL/min (>60); Globulin 2.8 g/dL (2.2-4.2); Glucose 82 mg/dL (74-106); High Density Lipoprotein 107 mg/dL; Potassium 4.2 mmol/L (3.5-5.1); Protein, Total 6.7 g/dL (6.4-8.2); Sodium Level 141 mmol/L (136-145); T4 Free Direct 1.15 ng/dL (0.76-1.46); Thyroid Stim Hormone (TSH) 2.43 uIU/mL (0.358-3.74); Triglycerides 42 mg/dL; Very Low Density Lipoprotein 8 mg/dL (5-40)
[2023-12-06 13:16] LABS: Microalbumin,Random Urine 10.4 mg/L (NO RANGE EST.)
[2023-12-06 14:07] LABS: Hemoglobin A1c 6.1 % (3.8-5.6)
[2023-12-07 04:07] LABS: LDL, Direct 120295 92 mg/dL (0-99)
== END | disposition home or self-care (01) ==
LOC: MTLAB 09:23
PROVIDERS: PCP Internal Medicine; Referring Provider Internal Medicine; Visit Provider Internal Medicine
DX: M05.79 Rheumatoid arthritis with rheumatoid factor of multiple sites without organ or systems involvement (principal); E10.65 Type 1 diabetes mellitus with hyperglycemia; E55.9 Vitamin D deficiency, unspecified; E53.9 Vitamin B deficiency, unspecified; D69.6 Thrombocytopenia, unspecified
CPT/HCPCS: 36415; 80053; 80061; 82043; 82306; 82607; 83036; 83721; 84439; 84443; 85025; 85652; 86140

== ENCOUNTER → 2024-03-29 | Outpatient (CLI) | payer MEDICARE, SELFPAY ==
--- NOTE | 2024-03-29 10:39 | BI_ITS ---
MAMMOGRAPHY - BILATERAL SCREENING REASON FOR EXAM: Female, 63 years old. Routine annual screening examination. PERTINENT HISTORY: Non-contributory. Prior bilateral biopsies. TECHNIQUE: Digital bilateral breast meño (3D mammographic acquisition) in the CC and MLO projections. 2-D mediolateral oblique (MLO) and craniocaudad (CC) views of both breasts were obtained. CAD: Full Field Digital Mammography with Computer Added Detection was performed. COMPARISON: Comparison is made with prior study March 08, 2023 and May 01, 2002. FINDINGS: Breast Composition: The breasts are extremely dense, which lowers the sensitivity of mammography. 1 cm nodule deep in the central portion right breast. This was biopsied with a tissue clip marker. No other significant abnormalities are identified. There has been no significant change since the prior study. BI/SCRN MAMM (CAD)W/MEÑO BILAT IMPRESSION: Stable bilateral screening mammogram. Yearly follow-up mammogram recommended. (A) ASSESSMENT CATEGORY: BIRADS Category 2: Benign. A letter regarding these results will be sent to the patient by the facility within 30 days. Approximately 10% of breast cancers are not detected by mammography. A normal mammogram should not delay biopsy of a clinically suspicious abnormality. [id number] Electronically Signed: Salvador Pike MD at 12:31 EDT ,
== END | disposition home or self-care (01) ==
LOC: OPBI 10:37
PROVIDERS: PCP Internal Medicine; Referring Provider Internal Medicine; Visit Provider Internal Medicine
DX: Z12.31 Encounter for screening mammogram for malignant neoplasm of breast (principal)
CPT/HCPCS: 77063; 77067

== ENCOUNTER → 2024-04-05 | Outpatient (CLI) | payer MEDICARE, SELFPAY | END | disposition home or self-care (01) | PROVIDERS: PCP Internal Medicine; Referring Provider Internal Medicine Rheumatology; Visit Provider Internal Medicine Rheumatology | DX: G89.29 Other chronic pain (principal); E10.65 Type 1 diabetes mellitus with hyperglycemia; K76.0 Fatty (change of) liver, not elsewhere classified; E78.2 Mixed hyperlipidemia; E55.9 Vitamin D deficiency, unspecified; D69.6 Thrombocytopenia, unspecified; E03.9 Hypothyroidism, unspecified; E53.9 Vitamin B deficiency, unspecified | CPT/HCPCS: 80053; 80061; 82043; 82306; 82570; 82607; 82670; 83001; 83036; 83721; 84403; 84439; 84443; 84481; 85027; 85049; 86140; 86376 ==

== ENCOUNTER → 2024-04-05 | Outpatient (CLI) | payer MEDICARE, SELFPAY ==
[2024-04-05 12:41] LABS: Absolute Lymphocyte Count 1.06 X10^3/uL (0.83-4.51); Absolute Neutrophil Count 2.9 X10^3/uL (2.0-7.7); Basophil# 0.02 X10^3/uL; Basophil% 0.4 % (0-1); Eosinophil# 0.02 X10^3/uL; Eosinophils% 0.4 % (0-5); Hematocrit 41.5 % (37-47); Hemoglobin 13.6 g/dL (12.0-15.0); Lymphocyte # 1.06 X10^3/ul (0.83-4.51); Lymphocyte % 23.5 % (19-41); Mean Corp Hgb Conc 32.8 g/dL (32-36); Mean Corpuscular Hgb 33.2 pg (27.0-32.0); Mean Corpuscular Volume 101.2 fL (81-99); Monocyte# 0.47 X10^3/uL; Monocyte% 10.4 % (0-10); NRBC Flagged by Analyzer 0 % (0-5); Neutrophil # 2.94 X10^3/uL (2.7-7.7); Neutrophil % 65.1 % (47-70); POSITIVE COUNT YES; RBC Distribution Width CV 12.8 % (11.6-14.6); RBC Distribution Width SD 48.2 fl (35.1-43.9); White Blood Count 4.5 K/mm3 (4.4-11.0)
[2024-04-05 12:43] LABS: Microalbumin,Random Urine 7.7 mg/L (NO RANGE EST.); Microalbumin:Creatinine Ratio 10.4 mg/g CRE (<30 mg/g CRE)
[2024-04-05 12:55] LABS: Erythrocyte Sedimentation Rate < 1 mm/hr (0-30)
[2024-04-05 13:20] LABS: Vitamin B12 694 pg/mL (211-911); Vitamin D,25 Hydroxy 62.8 ng/mL
[2024-04-05 13:28] LABS: Hemoglobin A1c 6.1 % (3.8-5.6)
[2024-04-05 13:34] LABS: Platelet Count 168 K/mm3 (150-450)
[2024-04-05 13:35] LABS: Differential Indicated SCAN CRITERIA MET
[2024-04-05 13:43] LABS: Differential Comment SCANNED
[2024-04-05 15:14] LABS: ALB/GLOB Ratio 1.5 RATIO (0.9-2.4); AST(SGOT) 35 U/L (15-37); Alanine Aminotransfer ALT/SGPT 46 U/L (13-56); Albumin, Serum 4.1 g/dL (3.2-5.0); Alkaline Phosphatase 96 U/L (45-117); Anion Gap 5 (5-15); BUN 11 mg/dL (7-18); BUN/Creat Ratio 17.2 RATIO (10-20); CRP < 2.90 mg/L (0.0-3.0); Calcium,Total 9.6 mg/dL (8.5-10.1); Chloride 101 mmol/L (98-107); Cholesterol 190 mg/dL (200); Creatinine, Serum 0.64 mg/dL (0.55-1.02); EST Glomerular Filtration Rate 99 mL/min (>60); Est Glom Filt Rate - Afr Amer 120 mL/min (>60); Estradiol 63.4 pg/mL; Follicle Stimulating Hormone 55.1 mIU/mL; Free T3 1.7 pg/mL (2.18-3.98); Globulin 2.7 g/dL (2.2-4.2); Glucose 112 mg/dL (74-106); High Density Lipoprotein 91 mg/dL; Potassium 4.6 mmol/L (3.5-5.1); Protein, Total 6.8 g/dL (6.4-8.2); Sodium Level 135 mmol/L (136-145); T4 Free Direct 1.16 ng/dL (0.76-1.46); Triglycerides 50 mg/dL; Very Low Density Lipoprotein 10 mg/dL (5-40)
== END | disposition home or self-care (01) ==
LOC: MTLAB 10:27
PROVIDERS: Internal Medicine Rheumatology; PCP Internal Medicine
DX: K76.0 Fatty (change of) liver, not elsewhere classified (principal); E10.65 Type 1 diabetes mellitus with hyperglycemia; D69.6 Thrombocytopenia, unspecified; E78.2 Mixed hyperlipidemia; E03.9 Hypothyroidism, unspecified; E55.9 Vitamin D deficiency, unspecified; E53.9 Vitamin B deficiency, unspecified
CPT/HCPCS: 80053; 80061; 82043; 82306; 82570; 82607; 82670; 83001; 83036; 83721; 84403; 84439; 84443; 84481; 85025; 85652; 86140; 86376

== ENCOUNTER → 2024-06-13 | Outpatient (CLI) | payer MEDICARE, SELFPAY ==
[2024-06-13 14:08] LABS: T4 Free Direct 1.24 ng/dL (0.76-1.46); Thyroid Stim Hormone (TSH) 0.811 uIU/mL (0.358-3.740)
== END | disposition home or self-care (01) ==
LOC: MTLAB 12:41
PROVIDERS: PCP Internal Medicine; Referring Provider Internal Medicine; Visit Provider Internal Medicine
DX: E03.8 Other specified hypothyroidism (principal)
CPT/HCPCS: 36415; 84439; 84443

== ENCOUNTER → 2024-06-25 | Outpatient (CLI) | payer MEDICARE, SELFPAY ==
--- NOTE | 2024-06-25 07:33 | US_ITS ---
STUDY: THYROID ULTRASOUND REASON FOR EXAM: Female, 63 years old. Thyroid nodule TECHNIQUE: Ultrasound evaluation of the thyroid was performed with real-time and static gonzales-scale imaging. COMPARISON: Comparison is made with prior study of June 24, 2023. FINDINGS: RIGHT LOBE: The right lobe of the thyroid gland measures 4.8 cm x 1.5 cm x 1 cm. There is a heterogeneous echotexture. There are no demonstrated solid, cystic or complex lesions. LEFT LOBE: The left lobe of the thyroid gland measures 4.4 cm x 1.4 cm x 0.9 cm. There is a heterogeneous echotexture. There are no demonstrated solid, cystic or complex lesions. ISTHMUS: The isthmus measures 2 mm. Stable 4 mm x 3 mm x 2 mm cyst in the isthmus. The regional lymph nodes are normal. US/Thyroid IMPRESSION: Heterogeneous appearance of the thyroid gland. Stable 4 mm x 3 mm x 2 mm cyst within the isthmus. Electronically Signed: Salvador Pike MD at 13:14 EST ,
--- NOTE | 2024-06-25 07:33 | US_ITS ---
STUDY: ABDOMINAL ULTRASOUND - RIGHT UPPER QUADRANT; ELASTOGRAPHY REASON FOR VISIT: Female, 63 years old. Fatty infiltration of the liver. TECHNIQUE: Ultrasound evaluation of the right upper quadrant was performed with real-time and static gonzales-scale imaging. Point quantification shear wave elastography was performed (Nanomech). TECHNICAL QUALITY: Adequate. COMPARISON: Comparison is made with prior study May 11, 2023. FINDINGS: Liver: The liver measures 15.1 cm. There is increased echogenicity consistent with fatty infiltration. The bile ducts are within normal limits. There is hepatic color flow. The direction of portal flow is hepatopetal. There is no demonstrated mass lesion. Median liver stiffness measured 7.0 kPa. Gallbladder: Normal distended gallbladder. The gallbladder wall measures 2.3 mm. There is a negative sonographic Martins''s sign. There is no pericholecystic fluid. There are no gallstones. Common Bile Duct (C.B.D.): The common bile duct measures 4.2 mm. Pancreas: There is normal echogenicity of the visualized pancreas. There is no demonstrated pancreatic mass or cyst. Right Kidney: Normal size of the right kidney. The right kidney measures 11.1 cm x 5.2 cm x 4.4 cm. Normal renal cortex. The right cortex measures 1.3 cm. There is no demonstrated renal mass or cyst. There is no right hydronephrosis. US/Abdomen Limited IMPRESSION: 1. Liver stiffness measures 7.0 kPa compatible with F2-F3 (Mild to moderate liver fibrosis) Metavir score. Electronically Signed: Salvador Pike MD at 12:36 EST ,
== END | disposition home or self-care (01) ==
LOC: US 07:32
PROVIDERS: PCP Internal Medicine; Referring Provider Internal Medicine; Visit Provider Internal Medicine
DX: K76.0 Fatty (change of) liver, not elsewhere classified (principal); E04.1 Nontoxic single thyroid nodule
CPT/HCPCS: 76536; 76705

== ENCOUNTER → 2024-08-31 | Outpatient (CLI) | payer MEDICARE, SELFPAY ==
[2024-08-31 15:14] LABS: Absolute Lymphocyte Count 0.89 X10^3/uL (0.83-4.51); Absolute Neutrophil Count 3.1 X10^3/uL (2.0-7.7); Basophil# 0.03 X10^3/uL; Basophil% 0.7 % (0-1); Eosinophil# 0.01 X10^3/uL; Eosinophils% 0.2 % (0-5); Hematocrit 41.3 % (37-47); Hemoglobin 13.9 g/dL (12.0-15.0); Lymphocyte # 0.89 X10^3/ul (0.83-4.51); Lymphocyte % 19.9 % (19-41); Mean Corp Hgb Conc 33.7 g/dL (32-36); Mean Corpuscular Hgb 33.7 pg (27.0-32.0); Mean Platelet Vol. 11.7 fl (6.2-12.0); Monocyte% 8.9 % (0-10); NRBC Flagged by Analyzer 0 % (0-5); Neutrophil # 3.14 X10^3/uL (2.7-7.7); Neutrophil % 70.1 % (47-70); POSITIVE COUNT YES; Platelet Count 130 K/mm3 (150-450); RBC Distribution Width CV 12.5 % (11.6-14.6); RBC Distribution Width SD 46.5 fl (35.1-43.9); Red Blood Count 4.13 M/mm3 (4.2-5.4); White Blood Count 4.5 K/mm3 (4.4-11.0)
[2024-08-31 15:28] LABS: Erythrocyte Sedimentation Rate < 1 mm/hr (0-30)
[2024-08-31 15:36] LABS: Vitamin B12 651 pg/mL (211-911); Vitamin D,25 Hydroxy 78.2 ng/mL
[2024-08-31 15:38] LABS: ALB/GLOB Ratio 1.3 RATIO (0.9-2.4); AST(SGOT) 41 U/L (15-37); Alanine Aminotransfer ALT/SGPT 58 U/L (13-56); Albumin, Serum 3.8 g/dL (3.2-5.0); Alkaline Phosphatase 106 U/L (45-117); Anion Gap 5 (5-15); BUN 12 mg/dL (7-18); BUN/Creat Ratio 22.1 RATIO (10-20); CRP < 2.90 mg/L (0.0-3.0); Calcium,Total 8.8 mg/dL (8.5-10.1); Chloride 104 mmol/L (98-107); Cholesterol 179 mg/dL (200); Creatinine, Serum 0.54 mg/dL (0.55-1.02); EST Glomerular Filtration Rate 120 mL/min (>60); Est Glom Filt Rate - Afr Amer 145 mL/min (>60); Globulin 2.9 g/dL (2.2-4.2); Glucose 119 mg/dL (74-106); High Density Lipoprotein 112 mg/dL; Potassium 4.5 mmol/L (3.5-5.1); Protein, Total 6.7 g/dL (6.4-8.2); Sodium Level 137 mmol/L (136-145); T4 Free Direct 1.32 ng/dL (0.76-1.46); Triglycerides 35 mg/dL; Very Low Density Lipoprotein 7 mg/dL (5-40)
[2024-08-31 15:40] LABS: Hemoglobin A1c 5.9 % (3.8-5.6)
[2024-08-31 15:48] LABS: Differential Indicated SCAN CRITERIA MET
[2024-08-31 15:50] LABS: Platelet Estimate ADEQUATE (ADEQ); Platelet Morphology LARGE; Red Cell Morphology N CHROM NORMAL (NORM C&C)
[2024-08-31 15:51] LABS: Anisocytosis 1+; Macrocytosis 1+
[2024-09-02 08:07] LABS: AFP, Tumor Marker < 1.8 ng/mL (0.0-9.2)
== END | disposition home or self-care (01) ==
LOC: MTLAB 10:12
PROVIDERS: PCP Internal Medicine; Referring Provider Internal Medicine; Visit Provider Internal Medicine
DX: E03.9 Hypothyroidism, unspecified (principal); E10.65 Type 1 diabetes mellitus with hyperglycemia; E78.2 Mixed hyperlipidemia; K76.0 Fatty (change of) liver, not elsewhere classified; Z79.899 Other long term (current) drug therapy; M16.0 Bilateral primary osteoarthritis of hip; M81.0 Age-related osteoporosis without current pathological fracture; E55.9 Vitamin D deficiency, unspecified; E53.9 Vitamin B deficiency, unspecified
CPT/HCPCS: 36415; 80053; 80061; 82105; 82306; 82607; 83036; 84439; 84443; 85025; 85652; 86140

== ENCOUNTER → 2024-12-19 | Outpatient (CLI) | payer MEDICARE, OTHER, SELFPAY ==
--- NOTE | 2024-12-19 12:50 | BD_ITS ---
PROCEDURE: DEXA BONE DENSITY STUDY 12/19/2024 REASON FOR EXAM: F, age 64 y/o . Postmenopausal. TECHNIQUE: DXA scan of sites with data reported below. REFERENCE LINKS: [facility] COMPARISON: Prior study dated November 18, 2022. FINDINGS: BMD and T-SCORES Lumbar spine: 0.894 g/cm2, T-score -1.1 Levels: L1 through L4 Change from prior: Improvement of 3%. Left femoral neck: 0.535 g/cm2, T-score -2.8 Femoral neck comparison data not recommended for monitoring change. Left total hip: 0.832 g/cm2, T-score -0.9 Change from prior: Improvement by 1%. Right femoral neck: 0.510 g/cm2, T-score -3.1 Femoral neck comparison data not recommended for monitoring change. Right total hip: 0.779 g/cm2, T-score -1.3 Change from prior: Loss of 4.5%. The World Health Organization has defined the following categories based on bone density: Normal bone density: T-score equal to or greater than -1.0 Osteopenia: T-score between -1.0 and -2.5 Osteoporosis: T-score equal to or less than -2.5 The patient does meet the pharmacological treatment recommendations for prevention of osteoporosis. BD/Dexa Bone Density Study IMPRESSION: OSTEOPOROSIS. Recommend follow-up as clinically warranted. Reading Location: [id number]
== END | disposition home or self-care (01) ==
PROVIDERS: PCP Internal Medicine; Referring Provider Internal Medicine Rheumatology; Visit Provider Internal Medicine Rheumatology
DX: M81.0 Age-related osteoporosis without current pathological fracture (principal)
CPT/HCPCS: 77080

== ENCOUNTER → 2024-12-28 | Outpatient (CLI) | payer MEDICARE, OTHER, SELFPAY ==
[2024-12-28 12:34] LABS: Hemoglobin A1c 6.2 % (<=5.6)
[2024-12-28 12:47] LABS: Hepatitis B Surface Antibody Nonreactive
[2024-12-28 12:59] LABS: AST(SGOT) 46 U/L (<=31); Alanine Aminotransfer ALT/SGPT 51 U/L (<=34); Albumin, Serum 4.7 g/dL (3.4-4.8); Alkaline Phosphatase 114 U/L (35-104); Anion Gap 13 (5-15); BUN 18 mg/dL (4-19); BUN/Creat Ratio 28.9 RATIO (10-20); Calcium,Total 9.8 mg/dL (7.6-11.0); Carbon Dioxide 25.1 mmol/L (21.0-32.0); Chloride 100 mmol/L (98-108); Cholesterol 203 mg/dL (<=200); Creatinine, Serum 0.62 mg/dL (0.70-1.20); EST Glomerular Filtration Rate 99 (>60); Globulin 2.4 g/dL (2.2-4.2); Glucose 92 mg/dL (70-99); High Density Lipoprotein 113 mg/dL; Low Density Lipoprotein Calc. 83 mg/dL; Potassium 4.2 mmol/L (3.3-5.1); Protein, Total 7.1 g/dL (5.9-8.4); Sodium Level 138 mmol/L (133-145); Total Bilirubin 0.73 mg/dL (0.00-1.30); Triglycerides 33 mg/dL; Very Low Density Lipoprotein 7 mg/dL (5-40)
[2024-12-28 13:01] LABS: Absolute Lymphocyte Count 1.07 X10^3/uL (0.83-4.51); Absolute Neutrophil Count 3.7 X10^3/uL (2.0-7.7); Basophil# 0.02 X10^3/uL; Basophil% 0.4 % (0-1); Eosinophil# 0.01 X10^3/uL; Eosinophils% 0.2 % (0-5); Hematocrit 41.8 % (37-47); Hemoglobin 14.2 g/dL (12.0-15.0); Lymphocyte # 1.07 X10^3/ul (0.83-4.51); Lymphocyte % 20.4 % (19-41); Mean Platelet Vol. 11.4 fl (6.2-12.0); Monocyte# 0.45 X10^3/uL; Monocyte% 8.6 % (0-10); NRBC Flagged by Analyzer 0 % (0-5); Neutrophil # 3.68 X10^3/uL (2.7-7.7); POSITIVE COUNT YES; RBC Distribution Width CV 12.3 % (11.6-14.6); RBC Distribution Width SD 45.1 fl (35.1-43.9); Red Blood Count 4.18 M/mm3 (4.2-5.4); White Blood Count 5.3 K/mm3 (4.4-11.0)
[2024-12-28 13:09] LABS: CRP < 3.00 mg/L (0.0-3.0); Ferritin 177 ng/mL (22-378); Vitamin B12 603 pg/mL (180-914)
[2024-12-28 13:39] LABS: Erythrocyte Sedimentation Rate 1 mm/hr (0-30)
[2024-12-28 13:40] LABS: Microalbumin,Random Urine 22.5 mg/L (NO RANGE EST.); Microalbumin:Creatinine Ratio 103.7 mg/g CRE
[2024-12-28 14:36] LABS: Differential Comment S
[2024-12-28 14:39] LABS: Platelet Estimate ADEQUATE (ADEQ)
[2024-12-28 14:40] LABS: Differential Indicated SCAN CRITERIA MET
[2025-01-01 15:08] LABS: AFP, Tumor Marker < 1.8 ng/mL (0.0-9.2); Anti-Mitochondrial AB <20.0 Units (0.0-20.0); Anti-Smooth Muscle ABS 11 Units (0-19); HEPATITIS B SURFACE AG Negative (Negative); Hep C Antibodies Non Reactive (Non Reactive); Hepatitis A AB, Total Positive (Negative); Hepatitis A IgM Antibody Negative (Negative); Hepatitis B Core AB IgM Negative (Negative)
== END | disposition home or self-care (01) ==
LOC: MTLAB 10:04
PROVIDERS: PCP Internal Medicine; Referring Provider Internal Medicine; Visit Provider Internal Medicine
DX: E10.9 Type 1 diabetes mellitus without complications (principal); M05.79 Rheumatoid arthritis with rheumatoid factor of multiple sites without organ or systems involvement; E10.65 Type 1 diabetes mellitus with hyperglycemia; E78.2 Mixed hyperlipidemia; K76.0 Fatty (change of) liver, not elsewhere classified; R79.89 Other specified abnormal findings of blood chemistry; Z79.899 Other long term (current) drug therapy; M47.9 Spondylosis, unspecified; M19.011 Primary osteoarthritis, right shoulder; M19.012 Primary osteoarthritis, left shoulder; G89.29 Other chronic pain; M70.62 Trochanteric bursitis, left hip; E53.9 Vitamin B deficiency, unspecified; E55.9 Vitamin D deficiency, unspecified
CPT/HCPCS: 36415; 80053; 80061; 80074; 82043; 82105; 82306; 82390; 82570; 82607; 82728; 83036; 83516; 84439; 84443; 85025; 85652; 86140; 86706; 86708

== ENCOUNTER → 2025-04-01 | Outpatient (CLI) | payer MEDICARE, OTHER, SELFPAY ==
--- NOTE | 2025-04-01 10:42 | BI_ITS ---
EXAM: SCRN MAMM (CAD)W/MEÑO BILAT DATE: 04/01/2025 CLINICAL HISTORY: F, Age 64 y/o , SCREENING Patient has had bilateral breast biopsies which were benign. Patient has a maternal aunt and a maternal 1st cousin who were diagnosed with breast cancer. TECHNIQUE: SCRN MAMM (CAD)W/MEÑO BILAT COMPARISON: Prior exam(s) dated 03/29/2024, 03/08/2023, and 04/28/2022 FINDINGS: TISSUE DENSITY: The breasts are heterogeneously dense, which may obscure small masses. Bilateral Breast Mammographic Findings: Benign-appearing round calcifications are seen in both breasts. Radiopaque clips are seen in both breasts. The biopsies were benign. The post biopsy sites are stable. No suspicious mass, suspicious cluster of microcalcifications, architectural distortion or secondary sign of malignancy is identified in either breast BI/SCRN MAMM (CAD)W/MEÑO BILAT IMPRESSION: Benign bilateral screening mammogram. OVERALL FINAL ASSESSMENT BI-RADS 2: BENIGN RECOMMENDATION: Routine annual follow-up in 1 Year A letter with findings and recommendations will be mailed to the patient. Reading Location: [id number]
== END | disposition home or self-care (01) ==
LOC: OPBI 10:37
PROVIDERS: PCP Internal Medicine; Referring Provider Internal Medicine; Visit Provider Internal Medicine
DX: Z12.31 Encounter for screening mammogram for malignant neoplasm of breast (principal); Z85.3 Personal history of malignant neoplasm of breast
CPT/HCPCS: 77063; 77067

== ENCOUNTER → 2025-05-02 | Outpatient (CLI) | payer MEDICARE, OTHER, SELFPAY ==
[2025-05-02 12:30] LABS: Hematocrit 41.0 % (37-47); Hemoglobin 14.2 g/dL (12.0-15.0); Immature Granulocytes Count 0.020 X10^3/uL (0.0-0.0); Mean Corp Hgb Conc 34.6 g/dL (32-36); Mean Corpuscular Volume 99.3 fL (81-99); Mean Platelet Vol. 10.9 fl (6.2-12.0); NRBC Flagged by Analyzer 0 % (0-5); POSITIVE COUNT YES; Platelet Count 113 K/mm3 (150-450); RBC Distribution Width CV 11.9 % (11.6-14.6); RBC Distribution Width SD 43.8 fl (35.1-43.9); Red Blood Count 4.13 M/mm3 (4.2-5.4); White Blood Count 4.7 K/mm3 (4.4-11.0)
[2025-05-02 12:41] LABS: Creatinine, Urine (random) 178.00 mg/dL (28.00-217.00); Microalbumin,Random Urine < 12.0 mg/L (<20 mg/L)
[2025-05-02 12:55] LABS: AST(SGOT) 51 U/L (<=31); Alanine Aminotransfer ALT/SGPT 62 U/L (<=34); Albumin, Serum 4.5 g/dL (3.4-4.8); Alkaline Phosphatase 98 U/L (35-104); Anion Gap 12 (5-15); BUN 10 mg/dL (4-19); BUN/Creat Ratio 17.7 RATIO (10-20); Calcium,Total 9.0 mg/dL (7.6-11.0); Carbon Dioxide 25.6 mmol/L (21.0-32.0); Chloride 101 mmol/L (98-108); Cholesterol 178 mg/dL (<=200); Globulin 2.2 g/dL (2.2-4.2); Glucose 135 mg/dL (70-99); Low Density Lipoprotein Calc. 86 mg/dL; Potassium 4.8 mmol/L (3.3-5.1); Triglycerides 44 mg/dL; Very Low Density Lipoprotein 9 mg/dL (5-40); Vitamin B12 655 pg/mL (180-914); Vitamin D,25 Hydroxy 74.4 ng/mL (30-100); cholesterol:hdl ratio screen 2.15
[2025-05-02 12:57] LABS: Differential Indicated SCAN CRITERIA MET
== END | disposition home or self-care (01) ==
PROVIDERS: PCP Internal Medicine; Referring Provider Internal Medicine Endocrinology, Diabetes & Metabolism; Visit Provider Internal Medicine Endocrinology, Diabetes & Metabolism
DX: E10.9 Type 1 diabetes mellitus without complications (principal); E03.9 Hypothyroidism, unspecified; M81.0 Age-related osteoporosis without current pathological fracture; E78.2 Mixed hyperlipidemia
CPT/HCPCS: 36415; 80053; 80061; 82043; 82306; 82570; 82607; 83036; 84439; 84443; 85025

== ENCOUNTER → 2025-05-20 | Outpatient (CLI) | payer MEDICARE, OTHER, SELFPAY ==
--- NOTE | 2025-05-20 09:07 | RDU_ITS ---
Reason For Study Reason For Study: HTN Right Renal Artery Left Renal Artery Right renal artery ostium 139.7/33.4 Left renal artery ostium 63.3/19.5 RSV/EDV. PSV/EDV. Right renal artery proximal 109.5/29.2 Left renal artery proximal PSV/EDV PSV/EDV. 111.1/38.6 . Right renal artery mid 115.0/33.9 Left renal artery mid 108.6/30.9 PSV/EDV. PSV/EDV . Right renal artery distal 96.2/30.3 Left renal artery distal 80.7/22.7 PSV/EDV. PSV/EDV. Right RAR 1.57. Left RAR 1.25. Right Renal Parenchyma Left Renal Parenchyma Upper Pole Medula 60.8/18.0 PSV/EDV. Left upper pole medulla 29.1/9.0 Right upper pole medulla EDR 0.30 . PSV/EDV . Right upper pole medulla R.I. 0.70 . Left upper pole medulla EDR 0.30 . Upper Abdullahi Cortx 37.5/8.9 PSV/EDV. Left upper pole medulla R.I. 0.69 . Right upper pole cortex EDR 0.20 . UP Cortex 23.9/7.9 PSV/EDV. Right upper pole cortex R.I. 0.76 . Left upper pole cortex EDR 0.30 . Right lower Pole medulla 54.3/14.1 Left upper pole cortex R.I. 0.67 . PSV/EDV . Left lower Pole medulla 50.1/13.6 Right lower pole medulla EDR 0.30 . PSV/EDV . Right lower pole medulla R.I. 0.74 . Left lower pole medulla EDR 0.30 . Lower Pole Cortex 34.9/8.9 PSV/EDV. Left lower pole medulla R.I. 0.73 . Right lower pole cortex EDR 0.30 . Lower Pole Cortx 26.3/8.5 PSV/EDV. Right lower pole cortex R.I. 0.74 . Left lower pole cortex EDR 0.30 . Right Renal Hilar Left lower pole cortex R.I. 0.68 . Right Hilar avg 143.1/35.1 PSV/EDV. Left Renal Hilar Right hilar acceleration time 40 m/sec. LT Hilar avg 58.9/14.9 PSV/EDV . Right Renal Dimensions Left hilar acceleration time 80 m/sec. Right kidney size 11.92 cm . Left Renal Dimensions Right cortical dimension 1.55 cm . Left kidney size 10.82 cm . Left cortical dimension 1.70 cm . Aorta Proximal abdominal aorta 1.49 X 1.45 cm . Proximal abdominal aorta peak systolic velocity is 88.9 cm/sec . Distal abdominal aorta 1.28 x 1.25 cm . Distal abdominal aorta peak systolic velocity is 74.7 cm/sec . VL/Renal Artery Duplex Ultrasound Interpretation Summary Right renal artery patent with normal velocities and no evidence of stenosis. Left renal artery patent with normal velocities and no evidence of stenosis. Right renal vein patent. Left renal vein patent. Right kidney normal in size. Left kidney normal in size. Ordering Physician: Karin Segura Referring Physician: Karin Segura Performed By: Froylan Chaudhary RVT and Student
[2025-05-20 18:20] LABS: Anion Gap 11 (5-15); BUN 13 mg/dL (4-19); BUN/Creat Ratio 20.5 RATIO (10-20); Calcium,Total 9.6 mg/dL (7.6-11.0); Carbon Dioxide 26.3 mmol/L (21.0-32.0); Chloride 102 mmol/L (98-108); Glucose 113 mg/dL (70-99); Potassium 4.3 mmol/L (3.3-5.1)
== END | disposition home or self-care (01) ==
PROVIDERS: PCP Internal Medicine; Referring Provider Internal Medicine; Visit Provider Internal Medicine
DX: I10 Essential (primary) hypertension (principal)
CPT/HCPCS: 36415; 80048; 93975

== ENCOUNTER → 2025-05-22 | Outpatient (CLI) | payer MEDICARE, OTHER, SELFPAY ==
--- NOTE | 2025-05-22 17:34 | STRESSREP_ITS ---
Stress Test Report Exercise myocardial perfusion stress test. 64-year-old lady with a history of chest pain. Stress protocol: Resting EKG demonstrates normal sinus rhythm with a rate of 63 bpm resting blood pressure is 158/70 mmHg. The patient exercised according to the regular Bryan protocol for a total duration of 7 minutes attaining a maximum heart rate of 126 bpm which was 81% of maximum predicted heart rate; the maximum workload was 10.1 metabolic equivalents. At rest there were no ST or T wave changes noted to suggest ischemia and at peak exercise upsloping ST changes only were noted which did not meet the criteria for ischemia. No clinical angina was noted the test was terminated due to the target heart rate being achieved/fatigue. The peak b lood pressure was 178/84 mmHg. Rate-pressure product was 17,900. Myocardial perfusion protocol. 11.9 mCi of technetium 99m sestamibi was injected at rest. The patient exercised according to regular Bryan protocol for total duration of 7 minutes and at peak exercise 33.3 mCi of technetium 99m sestamibi was injected stress images were obtained stress and rest images were reconstructed in comparing the short axis vertical long and horizontal long axis. Gated images were also obtained. Perfusion SPECT analysis: Review of the stress images demonstrate normal uptake of tracer noted in all areas of the myocardium. The resting images similarly demonstrate normal uptake of tracer noted in all areas of the myocardium. No areas of reversibility are noted to suggest ischemia no previous infarct was noted. Gated SPECT analysis: The gated ejection fraction is 84%. Conclusion: Normal exercise myocardial perfusion stress test at a high workload.
== END | disposition home or self-care (01) ==
LOC: CVS 06:09
PROVIDERS: PCP Internal Medicine; Referring Provider Internal Medicine; Visit Provider Internal Medicine
DX: I25.10 Atherosclerotic heart disease of native coronary artery without angina pectoris (principal)
CPT/HCPCS: 78452; 93017; A9500; A4216

== ENCOUNTER → 2025-05-30 | Outpatient (CLI) | payer MEDICARE, OTHER, SELFPAY ==
[2025-05-30 15:16] LABS: Hematocrit 38.3 % (37-47); Hemoglobin 13.1 g/dL (12.0-15.0); Immature Granulocytes Count 0.010 X10^3/uL (0.0-0.0); Mean Corp Hgb Conc 34.2 g/dL (32-36); Mean Corpuscular Volume 99.2 fL (81-99); Mean Platelet Vol. 10.9 fl (6.2-12.0); NRBC Flagged by Analyzer 0 % (0-5); POSITIVE COUNT YES; Platelet Count 144 K/mm3 (150-450); RBC Distribution Width CV 12.4 % (11.6-14.6); RBC Distribution Width SD 44.8 fl (35.1-43.9); Red Blood Count 3.86 M/mm3 (4.2-5.4); White Blood Count 4.8 K/mm3 (4.4-11.0)
[2025-05-30 15:37] LABS: Differential Indicated SCAN CRITERIA MET
[2025-05-30 15:43] LABS: AST(SGOT) 47 U/L (<=31); Alanine Aminotransfer ALT/SGPT 58 U/L (<=34); Albumin, Serum 4.3 g/dL (3.4-4.8); Alkaline Phosphatase 90 U/L (35-104); Anion Gap 9 (5-15); BUN 12 mg/dL (4-19); BUN/Creat Ratio 19.2 RATIO (10-20); CRP 3.18 mg/L (0.0-3.0); Calcium,Total 9.3 mg/dL (7.6-11.0); Carbon Dioxide 27.8 mmol/L (21.0-32.0); Chloride 100 mmol/L (98-108); Globulin 2.1 g/dL (2.2-4.2); Glucose 105 mg/dL (70-99); Potassium 4.4 mmol/L (3.3-5.1); Vitamin D,25 Hydroxy 66.5 ng/mL (30-100)
[2025-05-30 15:50] LABS: Differential Comment SCANNED
== END | disposition home or self-care (01) ==
LOC: MTLAB 11:33
PROVIDERS: PCP Internal Medicine
DX: M05.79 Rheumatoid arthritis with rheumatoid factor of multiple sites without organ or systems involvement (principal); M70.62 Trochanteric bursitis, left hip; K76.0 Fatty (change of) liver, not elsewhere classified; Z79.899 Other long term (current) drug therapy; E55.9 Vitamin D deficiency, unspecified; G89.29 Other chronic pain; M47.9 Spondylosis, unspecified
CPT/HCPCS: 36415; 80053; 82306; 85025; 85652; 86140